=== PATIENT | female | born 1945 | race Caucasian/White ===

== ENCOUNTER → 2018-02-03 | Outpatient (CLI) | payer MEDICARE, BC ==
[2018-02-03 14:41] LABS: HCT 39.8 % (34.0-46.0); HGB 13.6 gm/dL (11.4-16.0); MCH 32.1 pg (25.0-35.0); MCHC 34.1 g/dL (31.0-37.0); MCV 94.2 fL (80.0-100.0); Mean Platelet Volume 6.7; Platelet Count 183 k/uL (150-450); RBC 4.23 m/uL (3.80-5.40); RDW 13.8 % (11.5-15.5); WBC 6.9 k/uL (3.8-10.6)
[2018-02-03 15:06] LABS: Anion Gap 12 mmol/L; Blood Urea Nitrogen 19 mg/dL (7-17); Calcium 9.5 mg/dL (8.4-10.2); Carbon Dioxide 25 mmol/L (22-30); Chloride 101 mmol/L (98-107); Glucose 226 mg/dL (74-99); Sodium 138 mmol/L (137-145)
== END | disposition home or self-care (01) ==
LOC: LABWHC1 13:54
PROVIDERS: ATTEND Internal Medicine Interventional Cardiology
DX: E11.9 Type 2 diabetes mellitus without complications (principal); I25.10 Atherosclerotic heart disease of native coronary artery without angina pectoris
CPT/HCPCS: 36415; 80048; 85027

== ENCOUNTER 2018-02-04 05:56 | Inpatient (IN) | payer MEDICARE ==
[~2018-02-04 05:56] MED LIST: ALPRAZolam 0.25 MG TAB PO PRN; ALPRAZolam 0.5 MG TAB PO PRN; ASPIRIN 325 MG TAB PO STA; ATORVASTATIN 80 MG TAB PO STA; NITROGLYCERIN SL TABS 0.4 MG TAB SUBLINGUAL PRN; SODIUM CHLORIDE 0.9% 1,000 ML in EMPTY BAG 1 BAG IV ONE
[2018-02-04 06:53] LABS: Glucose,Whole Blood 268 mg/dL (75-99)
[2018-02-04] MEDS ORDERED: INSULIN ASPART 100 UNIT/ML 1 ML 10 ML VIAL SQ ONE ×2 (06:53→09:49)
[2018-02-04] MEDS ORDERED: diphenhydrAMINE 50 MG/ML 1 ML VIAL ONE (07:07)
[2018-02-04] MEDS ORDERED: LIDOCAINE 1% INJ 10MG/ML (20 ML MDV) ONE (07:07)
[2018-02-04] MEDS ORDERED: MIDAZOLAM 2 MG/2 ML VIAL ONE (07:07)
[2018-02-04] MEDS ORDERED: MIDAZOLAM 2 MG/2 ML VIAL IVP ONE ×2 (07:30→07:33)
[2018-02-04] MEDS ORDERED: diphenhydrAMINE 50 MG/ML 1 ML VIAL IVP ONE (07:30)
[2018-02-04] MEDS ORDERED: LIDOCAINE 1% INJ 10MG/ML (20 ML MDV) SQ ONE ×2 (07:31→07:35)
[2018-02-04] MEDS ORDERED: IV FLUID CONTINUATION 1,000 ML IV ONE (07:37)
[2018-02-04] MEDS ORDERED: HEPARIN SODIUM 1,000 UN/ML (10ML VL) ONE (07:47)
[2018-02-04] MEDS ORDERED: IOPAMIDOL-370 100ML BTL INJ ONE (07:54)
[2018-02-04] MEDS ORDERED: RX INFO: IV CONTRAST WAS GIVEN 1 EACH MISC MISCELLANE PRN (08:13)
[2018-02-04] MEDS ORDERED: HEPARIN SODIUM,PORCINE 5,000 UNIT/ML 1 ML VIAL IV STA ×2 (09:01→16:14)
[2018-02-04 09:11] LABS: Basophils % (A) 0 %; Eosinophils % (A) 0 %; HCT 34.3 % (34.0-46.0); HGB 11.7 gm/dL (11.4-16.0); Lymphocytes % (A) 25 %; MCH 31.8 pg (25.0-35.0); MCHC 34.1 g/dL (31.0-37.0); MCV 93.2 fL (80.0-100.0); Mean Platelet Volume 7.7; Monocytes # (A) 0.2 k/uL (0-1.0); Monocytes % (A) 5 %; Neutrophils # (A) 2.8 k/uL (1.3-7.7); Neutrophils % (A) 68 %; Platelet Count 161 k/uL (150-450); RBC 3.68 m/uL (3.80-5.40); RDW 13.5 % (11.5-15.5); WBC 4.2 k/uL (3.8-10.6)
[2018-02-04 09:23] LABS: INR 1.1 (<1.2); Partial Thromboplastin Time 23.5 sec (22.0-30.0); Prothrombin Time 10.6 sec (9.0-12.0)
--- NOTE | 2018-02-04 09:23 | CC ---
CARDIAC CATHETERIZATION REPORT DATE OF SERVICE: 02/04/2018 PROCEDURE: Left heart catheterization and coronary angiography. PERFORMED BY: Dr. Annie Leigh. Moderate conscious sedation time was 18 minutes. Patient was given a combination of Versed and Benadryl. Her oxygen saturation, hemodynamics and EKG were monitored closely. PROCEDURE NOTE: Under local anesthesia and strict aseptic precautions, a 6-Upper Sorbian introducer was placed in the right femoral artery. Using standard Ashleigh catheters, I performed coronary angiography and a pigtail catheter was used to check LV pressures. LV gram was not performed. The catheters were taken out and sheath was sutured and was advised urgent bypass surgery and I spoke to the patient's family and Dr. Alvarado. The patient has significant left main and triple-vessel disease. CARDIAC CATHETERIZATION FINDINGS: The left ventricle end-diastolic pressure was about 16 mmHg with a gradient of less than 10 mmHg across the aortic valve on pullback measurement. CORONARY ANGIOGRAPHY FINDINGS: RIGHT CORONARY ARTERY: Heavily calcified vessel, diffusely diseased throughout, has about 70% to 80% multiple areas of narrowing. It seems to be a codominant or nondominant vessel with a small PLV and slightly larger PDA both of which have diffuse disease. LEFT MAIN CORONARY ARTERY: This is a heavily calcified vessel has about 80% lesion in the distal left main and bifurcates into LAD and circumflex. The left main, LAD and circumflex are all heavily calcified. LEFT ANTERIOR DESCENDING CORONARY ARTERY: This vessel is moderately calcified, has about a 70% proximal lesion, 95% mid lesion, of good caliber, graftable. The distal segment where the graft will be attached is not calcified gives off several septal branches. LAD therefore has a 70% proximal and a 95% mid lesion independently. LEFT POSTERIOR CIRCUMFLEX CORONARY ARTERY: Technically a dominant vessel, has about a 80% proximal lesion and the obtuse marginal has a 90% lesion and distal branches of circumflex are diffusely disease. Obtuse marginal vessel is graftable. The groove branch gives off distal branches which are small in caliber. The circumflex system is heavily calcified, but the obtuse marginal which is graftable, does not have much calcium in it. LEFT VENTRICULOGRAM: This was not performed. FINAL IMPRESSION: This patient has a 70% to 80% left main lesion, independent lesions of more than 80% in the circumflex, obtuse marginal as well as mid and proximal left anterior descending artery. Right coronary artery is probably nondominant diffusely diseased. The left ventricular pressures are elevated. There is a gradient of less than 10 mmHg across the aortic valve. Left ventriculogram was not performed. RECOMMENDATION: I am recommending urgent aortocoronary bypass surgery and discussed my thoughts in detail with the patient's family and Dr. Alvarado. The patient will be seen by Dr. Alvarado shortly. MMAIDEE / ALLIEN: [id number] /
--- NOTE | 2018-02-04 09:23 | LTR ---
February 04, [address] Doe: Thank you for the opportunity to participate in the care of Mrs. Pricila Acuña. Please find enclosed my detailed cardiac cath report for your records. I am recommending urgent aortocoronary bypass surgery with graft to the LAD, possibly the diagonal and obtuse marginal branch of circumflex. The patient has preserved LV function by echocardiogram. Thank you for your referral and please call for questions. With kindest regards. Sincerely yours, Annie Leigh MD [id number] / ALLIEN: [id number] /
[2018-02-04 09:28] LABS: Cholesterol 133 mg/dL (<200); Glucose 222 mg/dL (74-99); Triglycerides 213 mg/dL (<150)
[2018-02-04 09:29] LABS: ALT 37 U/L (9-52); AST 23 U/L (14-36); Alkaline Phosphatase 52 U/L (38-126); Anion Gap 8 mmol/L; Blood Urea Nitrogen 18 mg/dL (7-17); Calcium 8.9 mg/dL (8.4-10.2); Carbon Dioxide 28 mmol/L (22-30); Chloride 105 mmol/L (98-107); HDL Cholesterol 37 mg/dL (40-60); LDL Cholesterol,Calculated 53 mg/dL (0-99); Magnesium 1.3 mg/dL (1.6-2.3); Potassium 4.8 mmol/L (3.5-5.1); Sodium 141 mmol/L (137-145); Total Bilirubin 0.9 mg/dL (0.2-1.3)
[2018-02-04] MEDS: SODIUM CHLORIDE 0.9% 1,000 ML IV SCH (09:48)
[2018-02-04 09:59] LABS: Glucose,Whole Blood 232 mg/dL (75-99)
[2018-02-04] MEDS: HEPARIN SOD,PORK IN 0.45% NACL 25,000 UNIT in 0.45% NACL 1 500ML.BAG IV SCH (10:10)
[2018-02-04] MEDS ORDERED: FLUoxetine HCL 20 MG CAP PO SCH (13:08)
[2018-02-04] MEDS ORDERED: GLIMEPIRIDE 4 MG TAB PO SCH (13:08)
[2018-02-04] MEDS ORDERED: amLODIPine 5 MG TAB PO SCH (13:08)
[2018-02-04 13:14] LABS: Glucose,Whole Blood 242 mg/dL (75-99)
--- NOTE | 2018-02-04 14:06 | P.GSCN ---
<Brie Vera - Last Filed: 02/04/18 13:53> History of Present Illness Consult date: 02/04/18 Reason for Consult: Triple-vessel coronary artery disease with left main disease, surgical recommendations. Requesting physician: Jay Leigh History of present illness: This is a 72-year-old female patient who follows with Dr. Pranav Doe on an outpatient basis. She has a previous medical history of hypertension, diabetes mellitus, hyperlipidemia, pulmonary hypertension, depression, previous tobacco dependence, back surgery, and breast cancer with lumpectomy and radiation in 2005. She had been seen by Dr. DAYA Leigh in the past, was lost to follow-up for a period of time, and began seeing him again recently. Since November she had been having intermittent periods of midsternal chest pain with radiation to her bilateral shoulders as well as a feeling like there is fluid in her lungs with occasional wheezing. These episodes she notices mostly with exertion but occasionally at rest, the last episode was yesterday when she was having her stress test done. She denies any recent sick contacts, syncope, PND, orthopnea , nausea, or peripheral arterial disease type symptoms. At the cardiology office yesterday she had a stress test with EKG changes consistent with moderate to large anteroapical and inferolateral reversible defect, she did have angina during the stress test which was relieved with nitroglycerin. In addition she had a transthoracic echocardiogram demonstrating preserved ejection fraction of 55%, concentric left ventricular hypertrophy and left atrial enlargement, mild to moderate aortic stenosis with peak/mean gradients 27 /14 mmHg, no wall motion abnormalities, grade 3 diastolic dysfunction, mild mitral regurgitation, mild tricuspid regurgitation, and mild pulmonary regurgitation. She was recommended to undergo heart catheterization which was completed this morning and which demonstrated 80% left main disease, diffuse 70 % RCA disease, 75% circumflex disease , 70% proximal LAD disease with mid LAD disease up to 95%. She currently denies any chest pain. Dr. Alvarado from cardiothoracic surgery was consulted regarding surgical revascularization recommendations. Review of Systems Review of systems completed and was negative except as noted. - Cardiovascular Reports as per HPI, Reports chest pain - Respiratory Reports wheezing Past Medical History Past Medical History: Cancer, Diabetes Mellitus, Hyperlipidemia, Hypertension Additional Past Medical History / Comment(s): Hx breast cancer in 2005 with lumpectomy and radiation. History of Any Multi-Drug Resistant Organisms: None Reported Past Surgical History: Breast Surgery, Hernia Repair, Orthopedic Surgery, Tubal Ligation Additional Past Surgical History / Comment(s): Surgery to repair broken arm. Past Anesthesia/Blood Transfusion Reactions: No Reported Reaction Past Psychological History: Depression Smoking Status: Former smoker Past Alcohol Use History: Occasional Additional Past Alcohol Use History / Comment(s): Quit smoking at 21 yrs of age. Past Drug Use History: None Reported - Past Family History Sister(s) Family Medical History: Cancer, Pulmonary Embolus Additional Family Medical History / Comment(s): Lung cancer Medications and Allergies Home Medications Medication Instructions Recorded Confirmed Type Aspirin [Adult Low Dose Aspirin EC] 81 mg PO DAILY 02/03/18 02/04/18 History Atenolol 25 mg PO BID 02/03/18 02/04/18 History Atorvastatin [Lipitor] 80 mg PO DAILY 02/03/18 02/04/18 History Cholecalciferol [Vitamin D3] 3,000 unit PO DAILY 02/03/18 02/04/18 History FLUoxetine HCL [PROzac] 40 mg PO DAILY 02/03/18 02/04/18 History Glimepiride [Amaryl] 4 mg PO DAILY 02/03/18 02/04/18 History amLODIPine BESYLATE [Norvasc] 5 mg PO DAILY 02/03/18 02/04/18 History metFORMIN HCL [Glucophage] 1,000 mg PO BID 02/03/18 02/04/18 History Lisinopril [Zestril] 10 mg PO DAILY 02/04/18 02/04/18 History Allergies Allergy/AdvReac Type Severity Reaction Status Date / Time sulfamethoxazole Allergy Rash/Hives Verified 02/04/18 14:24 [From Bactrim] trimethoprim [From Bactrim] Allergy Rash/Hives Verified 02/04/18 14:24 Surgical - Exam Vital Signs Temp Pulse Resp BP Pulse Ox 98.4 F 57 L 20 145/73 100 02/04/18 06:51 02/04/18 06:51 02/04/18 06:51 02/04/18 06:51 02/04/18 06:51 - General well developed, well nourished, no distress, no pain - Eyes PERRL, normal ocular movement - ENT no hearing loss, no congestion - Neck no masses, no bruits, trachea midline - Respiratory Lungs sounds clear bilaterally. Respirations even, nonlabored. Currently on room air with oxygen saturation 98%. - Cardiovascular S1, S2 present. Regular rate and rhythm, sinus rhythm on telemetry. Palpable peripheral pulses bilaterally. No edema present. No calf pain or tenderness noted. - Abdomen Abdomen: soft, non tender, bowel sounds - Genitourinary Deferred - Rectum Deferred - Integumentary Skin is warm and dry with evidence of good perfusion. Right femoral artery catheterization site soft, nontender. - Neurologic normal coordination, normal sensation - Psychiatric oriented to time, oriented to person, oriented to place, speech is normal, memory intact Results - Labs 02/04/18 08:51 02/04/18 08:51 Abnormal Lab Results - Last 24 Hours (Table) 02/04/18 02/04/18 02/04/18 Range/Units 06:37 08:51 08:51 RBC 3.68 L (3.80-5.40) m/uL BUN 18 H (7-17) mg/dL Glucose 222 H (74-99) mg/dL POC Glucose (mg/dL) 268 H (75-99) mg/dL Magnesium 1.3 L (1.6-2.3) mg/dL Total Protein 6.0 L (6.3-8.2) g/dL Triglycerides 213 H (<150) mg/dL HDL Cholesterol 37 L (40-60) mg/dL 02/04/18 02/04/18 Range/Units 09:44 13:13 RBC (3.80-5.40) m/uL BUN (7-17) mg/dL Glucose (74-99) mg/dL POC Glucose (mg/dL) 232 H 242 H (75-99) mg/dL Magnesium (1.6-2.3) mg/dL Total Protein (6.3-8.2) g/dL Triglycerides (<150) mg/dL HDL Cholesterol (40-60) mg/dL Diabetes panel 02/04/18 Range/Units 08:51 Sodium 141 (137-145) mmol/L Potassium 4.8 (3.5-5.1) mmol/L Chloride 105 (98-107) mmol/L Carbon Dioxide 28 (22-30) mmol/L BUN 18 H (7-17) mg/dL Creatinine 0.69 (0.52-1.04) mg/dL Glucose 222 H (74-99) mg/dL Calcium 8.9 (8.4-10.2) mg/dL AST 23 (14-36) U/L ALT 37 (9-52) U/L Alkaline Phosphatase 52 (38-126) U/L Total Protein 6.0 L (6.3-8.2) g/dL Albumin 4.0 (3.5-5.0) g/dL Triglycerides 213 H (<150) mg/dL HDL Cholesterol 37 L (40-60) mg/dL Thyroid panel 02/04/18 Range/Units 08:51 TSH 1.980 (0.465-4.680) mIU/L Calcium panel 02/04/18 Range/Units 08:51 Calcium 8.9 (8.4-10.2) mg/dL Albumin 4.0 (3.5-5.0) g/dL Pituitary panel 02/04/18 Range/Units 08:51 Sodium 141 (137-145) mmol/L Potassium 4.8 (3.5-5.1) mmol/L Chloride 105 (98-107) mmol/L Carbon Dioxide 28 (22-30) mmol/L BUN 18 H (7-17) mg/dL Creatinine 0.69 (0.52-1.04) mg/dL Glucose 222 H (74-99) mg/dL Calcium 8.9 (8.4-10.2) mg/dL TSH 1.980 (0.465-4.680) mIU/L Adrenal panel 02/04/18 Range/Units 08:51 Sodium 141 (137-145) mmol/L Potassium 4.8 (3.5-5.1) mmol/L Chloride 105 (98-107) mmol/L Carbon Dioxide 28 (22-30) mmol/L BUN 18 H (7-17) mg/dL Creatinine 0.69 (0.52-1.04) mg/dL Glucose 222 H (74-99) mg/dL Calcium 8.9 (8.4-10.2) mg/dL Total Bilirubin 0.9 (0.2-1.3) mg/dL AST 23 (14-36) U/L ALT 37 (9-52) U/L Alkaline Phosphatase 52 (38-126) U/L Total Protein 6.0 L (6.3-8.2) g/dL Albumin 4.0 (3.5-5.0) g/dL - Imaging Additional studies: Heart catheterization films were reviewed. Assessment and Plan (1) Coronary artery disease involving left main coronary artery Current Visit: Yes Status: Chronic Code(s): I25.10 - ATHSCL HEART DISEASE OF [place] CORONARY ARTERY W/O ANG PCTRS SNOMED Code(s): 228037189 (2) Hypertension Current Visit: Yes Status: Chronic Code(s): I10 - ESSENTIAL (PRIMARY) HYPERTENSION SNOMED Code(s): 13445224 (3) Hyperlipidemia Current Visit: Yes Status: Chronic Code(s): E78.5 - HYPERLIPIDEMIA, UNSPECIFIED SNOMED Code(s): 96189844 (4) Diabetes mellitus Current Visit: Yes Status: Chronic Code(s): E11.9 - TYPE 2 DIABETES MELLITUS WITHOUT COMPLICATIONS SNOMED Code(s): 89338194 (5) Pulmonary hypertension Current Visit: Yes Status: Chronic Code(s): I27.20 - PULMONARY HYPERTENSION , UNSPECIFIED SNOMED Code(s): 41933599 (6) Chronic diastolic heart failure Current Visit: Yes Status: Chronic Code(s): I50.32 - CHRONIC DIASTOLIC ( CONGESTIVE) HEART FAILURE SNOMED Code(s): 248824682 (7) Depression Current Visit: Yes Status: Chronic Code(s): F32.9 - MAJOR DEPRESSIVE DISORDER, SINGLE EPISODE, UNSPECIFIED SNOMED Code(s): 02377877 (8) History of breast cancer Current Visit: No Status: Resolved Code(s): Z85.3 - PERSONAL HISTORY OF MALIGNANT NEOPLASM OF BREAST SNOMED Code(s): 432129624 (9) History of lumpectomy of right breast Current Visit: No Status: Resolved Code(s): Z98.890 - OTHER SPECIFIED POSTPROCEDURAL STATES SNOMED Code(s): 359645139 (10) History of radiation therapy Current Visit: No Status: Resolved Code(s): Z92.3 - PERSONAL HISTORY OF IRRADIATION SNOMED Code(s): 919643304 (11) Tobacco dependence in remission Current Visit: No Status: Resolved Code(s): F17.201 - NICOTINE DEPENDENCE, UNSPECIFIED, IN REMISSION SNOMED Code(s): 914131099 Plan: The patient was seen and examined in the extended stay unit with Dr. Alvarado. Chart service diagnostics were reviewed. Heart catheterization films were reviewed. Preoperative teaching was initiated. Preoperative testing was initiated. Patient is currently chest pain free and in no distress. IV heparin was initiated per cardiology and the patient was admitted to the intensive care unit for close monitoring. Our recommendation is for coronary artery bypass grafting surgery this admission pending the results of preoperative testing, likely . All risks and benefits were explained to the patient and family in detail and they did consent to surgery. Continue aspirin, statin, beta stiven. Hold SARMAD inhibitor and calcium channel blockers to avoid hypotension during surgery. We'll continue to follow and make more definite recommendations for timing of surgery once preoperative testing is completed. Thank you Dr. Leigh for this consult. We look forward to working with you in the care of your patient. Time with Patient: Greater than 30 <Morro Alvarado - Last Filed: 02/04/18 15:24> Surgical - Exam Vital Signs Temp Pulse Resp BP Pulse Ox 98.4 F 57 L 20 145/73 100 02/04/18 06:51 02/04/18 06:51 02/04/18 06:51 02/04/18 06:51 02/04/18 06:51 Results - Labs 02/04/18 08:51 02/04/18 08:51 Abnormal Lab Results - Last 24 Hours (Table) 02/04/18 02/04/18 02/04/18 Range/Units 06:37 08:51 08:51 RBC 3.68 L (3.80-5.40) m/uL APTT (22.0-30.0) sec BUN 18 H (7-17) mg/dL Glucose 222 H (74-99) mg/dL POC Glucose (mg/dL) 268 H (75-99) mg/dL Magnesium 1.3 L (1.6-2.3) mg/dL Total Protein 6.0 L (6.3-8.2) g/dL Triglycerides 213 H (<150) mg/dL HDL Cholesterol 37 L (40-60) mg/dL 02/04/18 02/04/18 02/04/18 Range/Units 09:44 13:13 13:58 RBC (3.80-5.40) m/uL APTT 30.1 H (22.0-30.0) sec BUN (7-17) mg/dL Glucose (74-99) mg/dL POC Glucose (mg/dL) 232 H 242 H (75-99) mg/dL Magnesium (1.6-2.3) mg/dL Total Protein (6.3-8.2) g/dL Triglycerides (<150) mg/dL HDL Cholesterol (40-60) mg/dL Diabetes panel 02/04/18 Range/Units 08:51 Sodium 141 (137-145) mmol/L Potassium 4.8 (3.5-5.1) mmol/L Chloride 105 (98-107) mmol/L Carbon Dioxide 28 (22-30) mmol/L BUN 18 H (7-17) mg/dL Creatinine 0.69 (0.52-1.04) mg/dL Glucose 222 H (74-99) mg/dL Calcium 8.9 (8.4-10.2) mg/dL AST 23 (14-36) U/L ALT 37 (9-52) U/L Alkaline Phosphatase 52 (38-126) U/L Total Protein 6.0 L (6.3-8.2) g/dL Albumin 4.0 (3.5-5.0) g/dL Triglycerides 213 H (<150) mg/dL HDL Cholesterol 37 L (40-60) mg/dL Thyroid panel 02/04/18 Range/Units 08:51 TSH 1.980 (0.465-4.680) mIU/L Calcium panel 02/04/18 Range/Units 08:51 Calcium 8.9 (8.4-10.2) mg/dL Albumin 4.0 (3.5-5.0) g/dL Pituitary panel 02/04/18 Range/Units 08:51 Sodium 141 (137-145) mmol/L Potassium 4.8 (3.5-5.1) mmol/L Chloride 105 (98-107) mmol/L Carbon Dioxide 28 (22-30) mmol/L BUN 18 H (7-17) mg/dL Creatinine 0.69 (0.52-1.04) mg/dL Glucose 222 H (74-99) mg/dL Calcium 8.9 (8.4-10.2) mg/dL TSH 1.980 (0.465-4.680) mIU/L Adrenal panel 02/04/18 Range/Units 08:51 Sodium 141 (137-145) mmol/L Potassium 4.8 (3.5-5.1) mmol/L Chloride 105 (98-107) mmol/L Carbon Dioxide 28 (22-30) mmol/L BUN 18 H (7-17) mg/dL Creatinine 0.69 (0.52-1.04) mg/dL Glucose 222 H (74-99) mg/dL Calcium 8.9 (8.4-10.2) mg/dL Total Bilirubin 0.9 (0.2-1.3) mg/dL AST 23 (14-36) U/L ALT 37 (9-52) U/L Alkaline Phosphatase 52 (38-126) U/L Total Protein 6.0 L (6.3-8.2) g/dL Albumin 4.0 (3.5-5.0) g/dL Assessment and Plan Plan: The patient was seen and examined. I agree with the assessment and plan. The patient is a 72-year-old male who reports exertional angina on an intermittent basis for the past 2 months. She had a stress test performed yesterday which was found to be abnormal. She underwent cardiac catheterization today which revealed multivessel coronary artery disease. She was subsequently started on intravenous heparin and admitted to the ICU. At the time of my examination, the patient was resting comfortably in bed and denied chest pain. She continues to be hemodynamically stable. A coronary artery bypass was recommended. The risks, benefits, and alternatives to this procedure were discussed with the patient. All of her questions were answered. We will obtain the standard preoperative workup with plans for surgical intervention within the next 48 hours assuming she remains symptom free and hemodynamically stable.
[2018-02-04] MEDS: ATENOLOL 25 MG TAB PO SCH ×2 (14:39→22:43)
[2018-02-04] MEDS: CHOLECALCIFEROL 1,000 UNIT TAB PO SCH (14:39)
[2018-02-04] MEDS: MAGNESIUM SULFATE-D5W PMX 1 GM in DEXTROSE/WATER 1 100ML.BAG IVPB SCH ×2 (15:08→16:59)
[2018-02-04] MEDS: ATORVASTATIN 80 MG TAB PO SCH (15:09)
[2018-02-04] MEDS: ASPIRIN 81 MG PO SCH (15:09)
--- NOTE | 2018-02-04 16:57 | P.CONS ---
History of Present Illness - Reason for Consult Consult date: 02/04/18 diabetes management Requesting physician: Morro Alvarado - Chief Complaint chest pain - History of Present Illness Patient is a 72-year-old female with a complex medical history including diabetes mellitus type 2 with neuropathy managed on oral medications, hypertension, dyslipidemia, GERD, pulmonary hypertension, diastolic dysfunction , and depression who presented for an elective outpatient cardiac catheterization. Initially she had seen Dr. Leigh in the office and had a stress test performed. During her stress test she was noted to have EKG changes consistent with anterior apical and inferior lateral reversible defect. She developed her chest pain symptoms and received a nitroglycerin. She subsequently underwent cardiac catheterization on the morning of 02/04 which showed disease in the left main, RCA, circumflex, and LAD. She was subsequently placed on a heparin drip and admitted to the ICU. Dr. Alvarado from cardiothoracic surgery was consulted for regarding revascularization recommendations. Preoperative testing has been started on tentative plan is for revascularization in the next 48 hours if she remains symptom free and hemodynamically stable. We are asked to see her for medical management. Patient seen and examined at bedside in the ICU. She has been having intermittent chest pain since November. Initially was infrequent but became more frequent as time progressed. It first started after eating but then occurred with exertion as well. She states they last 5-10 minutes. It is associated with pain in both arms. She denied any associated shortness of breath, numbness or tingling, or faint feeling. She does report ringing in her ears. One time she had wheezing after the chest pain. She reports that she has had diabetes for approximately 10 years. Her last hemoglobin A1c was greater than 7 and she has been doing an intensive diabetes education program. She does not routinely check her blood sugar at home. She takes metformin and glimepiride daily. Recently in the doctor told her to take glimepiride 2 tablets as needed. She has not been doing this. She denies any recent cough, cold, fever, flu, nausea, vomiting, diarrhea, constipation, and dysuria. Past Medical History Past Medical History: Cancer, Diabetes Mellitus, GERD/Reflux, Hyperlipidemia, Hypertension Additional Past Medical History / Comment(s): Hx breast cancer in 2005 with lumpectomy and radiation. Depression, pulmonary hypertension, diastolic dysfunction. History of Any Multi-Drug Resistant Organisms: None Reported Past Surgical History: Breast Surgery, Hernia Repair, Orthopedic Surgery, Tubal Ligation Additional Past Surgical History / Comment(s): Fracture repair right arm, back surgery to repair her sciatica in 1996, lumpectomy Past Anesthesia/Blood Transfusion Reactions: No Reported Reaction Past Psychological History: Depression Smoking Status: Former smoker Past Alcohol Use History: Occasional Additional Past Alcohol Use History / Comment(s): Quit smoking at 21 yrs of age. Past Drug Use History: None Reported Additional History: Lives alone, no assistive devices - Past Family History Sister(s) Family Medical History: Cancer, Pulmonary Embolus Additional Family Medical History / Comment(s): Lung cancer Medications and Allergies Home Medications Medication Instructions Recorded Confirmed Type Aspirin [Adult Low Dose Aspirin EC] 81 mg PO DAILY 02/03/18 02/04/18 History Atenolol 25 mg PO BID 02/03/18 02/04/18 History Atorvastatin [Lipitor] 80 mg PO DAILY 02/03/18 02/04/18 History Cholecalciferol [Vitamin D3] 3,000 unit PO DAILY 02/03/18 02/04/18 History FLUoxetine HCL [PROzac] 40 mg PO DAILY 02/03/18 02/04/18 History Glimepiride [Amaryl] 4 mg PO DAILY 02/03/18 02/04/18 History amLODIPine BESYLATE [Norvasc] 5 mg PO DAILY 02/03/18 02/04/18 History metFORMIN HCL [Glucophage] 1,000 mg PO BID 02/03/18 02/04/18 History Lisinopril [Zestril] 10 mg PO DAILY 02/04/18 02/04/18 History Allergies Allergy/AdvReac Type Severity Reaction Status Date / Time sulfamethoxazole Allergy Rash/Hives Verified 02/04/18 14:24 [From Bactrim] trimethoprim [From Bactrim] Allergy Rash/Hives Verified 02/04/18 14:24 Physical Exam Osteopathic Statement: *. No significant issues noted on an osteopathic structural exam other than those noted in the History and Physical/Consult. Vitals: Vital Signs Temp Pulse Pulse Resp BP BP BP 02/04/18 16:00 98.4 F 66 20 118/67 02/04/18 15:45 67 23 140/77 02/04/18 15:30 76 19 140/77 07/31/18 15:15 74 17 122/68 07/31/18 15:00 79 14 122/68 02/04/18 14:45 81 17 131/71 02/04/18 14:30 77 42 H 131/71 02/04/18 14:15 76 19 127/66 02/04/18 14:00 82 15 127/66 02/04/18 13:45 80 9 L 134/66 02/04/18 13:30 98.5 F 81 18 134/66 02/04/18 12:30 20 110/60 02/04/18 10:30 20 114/61 02/04/18 10:00 20 02/04/18 09:45 18 02/04/18 09:30 20 02/04/18 09:00 20 108/59 02/04/18 08:45 20 130/71 02/04/18 08:32 20 114/65 02/04/18 08:15 18 131/61 02/04/18 08:00 20 131/61 02/04/18 07:42 02/04/18 06:51 98.4 F 57 L 20 142/74 145/73 BP Pulse Ox 02/04/18 16:00 92 L 02/04/18 15:45 94 L 02/04/18 15:30 92 L 02/04/18 15:15 94 L 02/04/18 15:00 93 L 02/04/18 14:45 95 02/04/18 14:30 94 L 02/04/18 14:15 94 L 02/04/18 14:00 94 L 02/04/18 13:45 95 02/04/18 13:30 94 L 02/04/18 12:30 98 02/04/18 10:30 98 02/04/18 10:00 98 02/04/18 09:45 97 02/04/18 09:30 114/68 96 02/04/18 09:00 138/68 96 02/04/18 08:45 150/58 95 02/04/18 08:32 152/60 95 02/04/18 08:15 146/60 95 02/04/18 08:00 152/62 93 L 02/04/18 07:42 39 L 02/04/18 06:51 100 Intake and Output 02/04/18 02/04/18 02/04/18 06:59 14:59 22:59 Intake Total 450 249.28 Output Total 0 Balance 450 249.28 Intake: IV 350 150 Sodium Chloride 0.9% 1, 150 150 000 ml @ 75 mls/hr IV . [id number] TORIBIO Rx#:[id number] Intake, IV Titration 99.28 Amount Heparin Sod,Pork in 0.45% 99.28 NaCl 25,000 unit In 0.45 % NaCl 1 500ml.bag @ 12 UNITS/KG/HR 16.32 mls/hr IV .Q24H TORIBIO Rx#: [id number] Oral 100 Output: Urine 0 Other: # Voids 0 0 General: non toxic, no distress, appears at stated age, normal weight Derm: no unusual rashes/lesions no unusual ecchymoses, warm, dry Head: atraumatic, normocephalic, symmetric Eyes: EOMI, no lid lag, anicteric sclera, pupils equal round reactive to light ENT: Nose and ears atraumatic, no thrush, no pharyngeal erythema Neck: No thyromegaly, no cervical lymphadenopathy, trachea midline, supple Mouth: no lip lesion, mucus membranes moist Cardiovascular: S1S2 reg with murmur, positive posterior tibial pulse bilateral , no edema, capillary refill less than 2 seconds Lungs: CTA bilateral, no rhonchi, no rales , no accessory muscle use Abdominal: soft, nontender to palpation, no guarding, no appreciable organomegaly, normal bowel sounds Ext: no gross muscle atrophy, muscle strength 5 out of 5 in bilateral upper extremities, no contractures, Neuro: CN II-XI grossly intact, light touch intact all 4 extremities, finger to nose within normal limits, Psych: Alert, oriented, appropriate affect Results CBC & Chem 7: 02/04/18 08:51 02/04/18 08:51 Labs: Abnormal Lab Results - Last 24 Hours (Table) 02/04/18 02/04/18 02/04/18 Range/Units 06:37 08:51 08:51 RBC 3.68 L (3.80-5.40) m/uL APTT (22.0-30.0) sec BUN 18 H (7-17) mg/dL Glucose 222 H (74-99) mg/dL POC Glucose (mg/dL) 268 H (75-99) mg/dL Magnesium 1.3 L (1.6-2.3) mg/dL Total Protein 6.0 L (6.3-8.2) g/dL Triglycerides 213 H (<150) mg/dL HDL Cholesterol 37 L (40-60) mg/dL Crossmatch 02/04/18 02/04/18 02/04/18 Range/Units 08:51 09:44 13:13 RBC (3.80-5.40) m/uL APTT (22.0-30.0) sec BUN (7-17) mg/dL Glucose (74-99) mg/dL POC Glucose (mg/dL) 232 H 242 H (75-99) mg/dL Magnesium (1.6-2.3) mg/dL Total Protein (6.3-8.2) g/dL Triglycerides (<150) mg/dL HDL Cholesterol (40-60) mg/dL Crossmatch See Detail 02/04/18 Range/Units 13:58 RBC (3.80-5.40) m/uL APTT 30.1 H (22.0-30.0) sec BUN (7-17) mg/dL Glucose (74-99) mg/dL POC Glucose (mg/dL) (75-99) mg/dL Magnesium (1.6-2.3) mg/dL Total Protein (6.3-8.2) g/dL Triglycerides (<150) mg/dL HDL Cholesterol (40-60) mg/dL Crossmatch Assessment and Plan Assessment: Diabetes mellitus Type II - stop metformin and Amaryl - SSI - Check A1C 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 - heparin gtt, ASA, atenolol, lipitor HTN - atenolol, follow BP -lisinopril and norvasc on hold preoperatively HLD - statin GERD -protonix Depression - Med rec clarified, on effexor not prozac Thank you for allowing us to participate in the care of this patient. Do not hesitate to contact us with questions. Someone can be reached from the [facility] hospitalist group at all hours of the day at [phone]. From 7 am to 7 PM The [facility] team phone is [phone].
--- NOTE | 2018-02-04 17:04 | XR ---
EXAMINATION TYPE: XR chest 1V portable DATE OF EXAM: 02/04/2018 COMPARISON: NONE HISTORY: Preoperative evaluation for cardiac surgery. TECHNIQUE: Single frontal view of the chest is obtained. FINDINGS: There is no focal air space opacity, pleural effusion, or pneumothorax seen. The cardiac silhouette size is upper limits of normal size. The osseous structures are intact. Osseous deminera lization is noted. IMPRESSION: No acute cardiopulmonary process.
--- NOTE | 2018-02-04 17:04 | P.CNPUL ---
History of Present Illness Consult date: 02/04/18 Requesting physician: Morro Alvarado Reason for consult: chest pain Chief complaint: Coronary artery disease, chest pain, preop CABG pulmonary evaluation History of present illness: Mrs. Acuña is a 72-year-old white female patient of Dr. Pranav Doe, who was brought in for cardiac catheterization today on 02/04/2018, following up positive stress test at [facility]. Patient has been having substernal chest pain, with bilateral arm heaviness, and ringing in her ears on and off since November. She states her symptoms would be brought after eating, and physical exertion like walking. Relieved with rest, and deep breathing. Lately her symptoms were also accompanied by sweating. Her PCP referred her to cardiology, she underwent exercise stress test on 02/03/2018, and she had chest pain, diaphoresis, significant infero-apical ST segment depression, and she was scheduled for cardiac catheterization today, which showed 70-80% left main lesion, 80% lesion in the circumflex, obtuse marginal that was mid and proximal LAD. The RCA was diffusely diseased, but was nondominant. There was a less than 10 mm gradient across the aortic valve. Lab work showed WBC of 4.2, hemoglobin of 11.7, electrolytes and renal profile were essentially normal, magnesium was 1.3, LFTs were normal. Past medical history is positive for hypertension, diabetes mellitus type 2, hyperlipidemia, depression, remote and brief smoking history, back surgery, breast cancer in 2005, status post lumpectomy and radiation. Most recent mammogram from December 2017 was normal. Echocardiogram showed mild to moderate aortic stenosis with mean gradient of 15 mmHg, mild pulmonary hypertension, concentric LVH and left atrial enlargement, ejection fraction of 55%. Patient was referred to cardiothoracic surgery and she was recommended surgical revascularization to which she agreed. Her surgery is scheduled for 02/06/[address] Alvarado. Review of Systems All systems: negative Constitutional: Denies chills, Denies fever Eyes: denies blurred vision, denies pain Ears, nose, mouth and throat: Denies headache, Denies sore throat Breasts: right: as per HPI Breasts: Reports as per HPI Cardiovascular: Reports chest pain, Denies shortness of breath Respiratory: Reports dyspnea, Reports wheezing, Denies cough Gastrointestinal: Reports indigestion, Denies abdominal pain, Denies diarrhea, Denies nausea, Denies vomiting Genitourinary: Denies dysuria, Denies hematuria Musculoskeletal: Denies myalgias Integumentary: Denies pruritus, Denies rash Neurological: Denies numbness, Denies weakness Psychiatric: Denies anxiety, Denies depression Endocrine: Denies fatigue, Denies weight change Past Medical History Past Medical History: Cancer, Diabetes Mellitus, Hyperlipidemia, Hypertension Additional Past Medical History / Comment(s): Hx breast cancer in 2006 with lumpectomy and radiation. History of Any Multi-Drug Resistant Organisms: None Reported Past Surgical History: Breast Surgery, Hernia Repair, Orthopedic Surgery, Tubal Ligation Additional Past Surgical History / Comment(s): Surgery to repair broken arm. Past Anesthesia/Blood Transfusion Reactions: No Reported Reaction Past Psychological History: Depression Smoking Status: Former smoker Past Alcohol Use History: Occasional Additional Past Alcohol Use History / Comment(s): Quit smoking at 21 yrs of age. Past Drug Use History: None Reported - Past Family History Sister(s) Family Medical History: Cancer, Pulmonary Embolus Additional Family Medical History / Comment(s): Lung cancer Medications and Allergies Home Medications Medication Instructions Recorded Confirmed Type Aspirin [Adult Low Dose Aspirin EC] 81 mg PO DAILY 02/03/18 02/04/18 History Atenolol 25 mg PO BID 02/03/18 02/04/18 History Atorvastatin [Lipitor] 80 mg PO DAILY 02/03/18 02/04/18 History Cholecalciferol [Vitamin D3] 3,000 unit PO DAILY 02/03/18 02/04/18 History FLUoxetine HCL [PROzac] 40 mg PO DAILY 02/03/18 02/04/18 History Glimepiride [Amaryl] 4 mg PO DAILY 02/03/18 02/04/18 History amLODIPine BESYLATE [Norvasc] 5 mg PO DAILY 02/03/18 02/04/18 History metFORMIN HCL [Glucophage] 1,000 mg PO BID 02/03/18 02/04/18 History Lisinopril [Zestril] 10 mg PO DAILY 02/04/18 02/04/18 History Allergies Allergy/AdvReac Type Severity Reaction Status Date / Time sulfamethoxazole Allergy Rash/Hives Verified 02/04/18 14:24 [From Bactrim] trimethoprim [From Bactrim] Allergy Rash/Hives Verified 02/04/18 14:24 Physical Exam Vitals: Vital Signs Temp Pulse Pulse Resp BP BP BP 02/04/18 16:00 98.4 F 66 20 118/67 02/04/18 15:45 67 23 140/77 02/04/18 15:30 76 19 140/77 02/04/18 15:15 74 17 122/68 02/04/18 15:00 79 14 122/68 02/04/18 14:45 81 17 131/71 02/04/18 14:30 77 42 H 131/71 02/04/18 14:15 76 19 127/66 02/04/18 14:00 82 15 127/66 02/04/18 13:45 80 9 L 134/66 02/04/18 13:30 98.5 F 81 18 134/66 02/04/18 12:30 20 110/60 02/04/18 10:30 20 114/61 02/04/18 10:00 20 02/04/18 09:45 18 02/04/18 09:30 20 02/04/18 09:00 20 108/59 02/04/18 08:45 20 130/71 02/04/18 08:32 20 114/65 02/04/18 08:15 18 131/61 02/04/18 08:00 20 131/61 02/04/18 07:42 02/04/18 06:51 98.4 F 57 L 20 142/74 145/73 BP Pulse Ox 02/04/18 16:00 92 L 02/04/18 15:45 94 L 02/04/18 15:30 92 L 02/04/18 15:15 94 L 02/04/18 15:00 93 L 02/04/18 14:45 95 02/04/18 14:30 94 L 02/04/18 14:15 94 L 02/04/18 14:00 94 L 02/04/18 13:45 95 02/04/18 13:30 94 L 02/04/18 12:30 98 02/04/18 10:30 98 02/04/18 10:00 98 02/04/18 09:45 97 02/04/18 09:30 114/68 96 02/04/18 09:00 138/68 96 02/04/18 08:45 150/58 95 02/04/18 08:32 152/60 95 02/04/18 08:15 146/60 95 02/04/18 08:00 152/62 93 L 02/04/18 07:42 39 L 02/04/18 06:51 100 Intake and Output 02/04/18 02/04/18 02/04/18 06:59 14:59 22:59 Intake Total 450 249.28 Output Total 0 Balance 450 249.28 Intake: IV 350 150 Sodium Chloride 0.9% 1, 150 150 000 ml @ 75 mls/hr IV . [id number] TORIBIO Rx#:[id number] Intake, IV Titration 99.28 Amount Heparin Sod,Pork in 0.45% 99.28 NaCl 25,000 unit In 0.45 % NaCl 1 500ml.bag @ 12 UNITS/KG/HR 16.32 mls/hr IV .Q24H TORIBIO Rx#: [id number] Oral 100 Output: Urine 0 Other: # Voids 0 0 GENERAL EXAM: Alert, pleasant, 72-year-old white female, comfortable in no apparent distress. HEAD: Normocephalic/atraumatic. EYES: Normal reaction of pupils, equal size. Conjunctiva pink, sclera white. NOSE: Clear with pink turbinates. THROAT: No erythema or exudates. NECK: No masses, no JVD, no thyroid enlargement, no adenopathy. CHEST: No chest wall deformity. Symmetrical expansion. LUNGS: Equal air entry with no crackles, wheeze, rhonchi or dullness. CVS: Regular rate and rhythm, normal S1 and S2, no gallops, no murmurs, no rubs ABDOMEN: Soft, nontender. No hepatosplenomegaly, normal bowel sounds, no guarding or rigidity. EXTREMITIES: No clubbing, no edema, no cyanosis, 2+ pulses and upper and left lower extremity. Right groin puncture is clean dry and intact, soft, there is a FemoStop on. Right pedal pulse is Doppler pulse MUSCULOSKELETAL: Muscle strength and tone normal. SPINE: No scoliosis or deformity SKIN: No rashes CENTRAL NERVOUS SYSTEM: Alert and oriented -3. No focal deficits, tone is normal in all 4 extremities. PSYCHIATRIC: Alert and oriented -3. Appropriate affect. Intact judgment and insight. Results - Laboratory Findings CBC and BMP: 02/04/18 08:51 02/04/18 08:51 PT/INR, D-dimer PT 10.6 sec (9.0-12.0) 02/04/18 08:51 INR 1.1 (<1.2) 02/04/18 08:51 Abnormal lab findings: Abnormal Labs 02/04/18 02/04/18 02/04/18 06:37 08:51 08:51 RBC 3.68 L APTT BUN 18 H Glucose 222 H POC Glucose (mg/dL) 268 H Magnesium 1.3 L Total Protein 6.0 L Triglycerides 213 H HDL Cholesterol 37 L Crossmatch 02/04/18 02/04/18 02/04/18 08:51 09:44 13:13 RBC APTT BUN Glucose POC Glucose (mg/dL) 232 H 242 H Magnesium Total Protein Triglycerides HDL Cholesterol Crossmatch See Detail 02/04/18 13:58 RBC APTT 30.1 H BUN Glucose POC Glucose (mg/dL) Magnesium Total Protein Triglycerides HDL Cholesterol Crossmatch Assessment and Plan Plan: Assessment: #1. Symptomatic coronary artery disease, with 80% left main stenosis, diffuse RCA disease at 70%, 75% circumflex lesion, 70% proximal LAD, and mid LAD up to 95%. Patient is scheduled for coronary artery bypass grafting on 02/06/[address] Alvarado #2. Diabetes mellitus type 2 #3. Hypertension #4. Hyperlipidemia #5. Depression #6. History of right breast cancer, status post lumpectomy and radiation, in 2005. Most recent mammogram was reportedly within normal limits. #7. Remote smoking history, quit smoking at age of 21, smoked a pack a day for 6 years #8. Pulmonary hypertension Plan: Preop PFT will be completed once the patient is off bedrest. We'll obtain a chest x-ray. CT chest, vein mapping ultrasound and carotid Dopplers are pending. Patient's is currently without any acute distress, no dyspnea, room air pulse ox is 92%, vital signs are stable, patient denies any baseline shortness of breath. Continue monitoring for episodes of chest pain, vital signs, EKG changes. Surgery has been scheduled for , on . We 'll continue to closely follow I performed a history & physical examination of the patient and discussed their management with my nurse practitioner, Jaye Marina. I reviewed the nurse practitioner's note and agree with the documented findings and plan of care. Lung sounds are clear. The findings and the impression was discussed with the patient. I attest to the documentation by the nurse practitioner. Time with Patient: Greater than 30
[2018-02-04 17:29] LABS: Glucose,Whole Blood 169 mg/dL (75-99)
[2018-02-04 17:39] LABS: Hemoglobin A1C 7.9 % (4.0-6.0)
[2018-02-04] MEDS: INSULIN ASPART 100 UNIT/ML 1 ML 10 ML VIAL SQ SCH ×2 (17:59→21:32)
[2018-02-04 18:10] LABS: Hepatitis A Antibody IgM Non-Reactive (Non-Reactive); Hepatitis B Core IgM Non-Reactive (Non-Reactive)
--- NOTE | 2018-02-04 19:00 | CT ---
EXAMINATION TYPE: CT chest wo con DATE OF EXAM: 02/04/2018 COMPARISON: NONE HISTORY: Pre-operative for open heart surgery. CT DLP: 317.8 mGycm. Automated Exposure Control for Dose Reduction was Utilized. TECHNIQUE: CT scan of the thorax is performed without IV contrast. FINDINGS: LUNGS: There is a punctate 2 mm solid pulmonary nodule within the posterior lateral right upper lobe on series 4 image 17. There are 2 additional 2 mm pulmonary nodules within the right midlung are seen on series 4 image 30. No discrete pulmonary mass, focal consolidation, or pneumothorax. Minimal biba silar subsegmental atelectasis is seen. MEDIASTINUM: There is moderate atherosclerosis of the aortic arch and mild atherosclerosis of the gre at vessels. There is a conventional three-vessel branch pattern of the aortic arch. There is severe t hree-vessel coronary artery calcifications. Minimal atherosclerosis of the aortic root and ascending thoracic aorta. Ascending thoracic aorta is within normal limits of size measuring 3.5 cm. Lack of IV contrast is noted to limit evaluation for mediastinal and especially hilar adenopathy. There are no definitive greater than 1 cm hilar or mediastinal lymph nodes. No cardiomegaly or pericardial effus ion is seen. OTHER: Vascular calcifications are seen near the ayden hepatis and within the splenic hilum as well a s extensive atherosclerosis of the abdominal aorta and its branches. Renal arterial calcifications ar e also seen. No hydronephrosis of the visualized kidneys. Dystrophic right breast calcifications are also present. There is heterogeneity of thyroid gland with posterior right lobe ill-defined 8 mm nodu le. This could be further assessed with thyroid ultrasound if clinically indicated. Moderate degenera tive changes of the visualized thoracolumbar spine are noted. IMPRESSION: 1. Extensive three-vessel coronary artery calcifications, marker for coronary artery disease. 2. No evidence of thoracic aortic aneurysm. Moderate calcific atheromatous change of the thoracic aor ta and severe calcific atheromatous change of the visualized abdominal aorta and its branches. 3. Subcentimeter (2 mm) right-sided pulmonary nodules. Follow-up CT thorax is recommended in 12 month s to assess stability.
[2018-02-04 20:20] LABS: Glucose,Whole Blood 230 mg/dL (75-99)
[2018-02-04] MEDS ORDERED: LISINOPRIL 10 MG TAB PO SCH (21:00)
--- NOTE | 2018-02-04 21:59 | US ---
EXAMINATION TYPE: US carotid duplex BILAT DATE OF EXAM: 02/04/2018 COMPARISON: NONE CLINICAL HISTORY: preop cardiac surgery. pre op cardiac surgery EXAM MEASUREMENTS: RIGHT: Peak Systolic Velocity (PSV) cm/sec ----- Right CCA: 56.6 ----- Right ICA: 60.9 ----- Right ECA: 85.6 ICA/CCA ratio: 1.1 RIGHT: End Diastole cm/sec ----- Right CCA: 11.5 ----- Right ICA: 12.9 ----- Right ECA: 12.9 LEFT: Peak Systolic Velocity (PSV) cm/sec ----- Left CCA: 94.3 ----- Left ICA: 94.4 ----- Left ECA: 88.5 ICA/CCA ratio: 1.0 LEFT: End Diastole cm/sec ----- Left CCA: 23.1 ----- Left ICA: 29.4 ----- Left ECA: 0 VERTEBRALS (direction of flow): Right Vertebral: Antegrade Left Vertebral: Antegrade Rhythm: Normal Bilateral plaque seen. Bilateral ICA dives deep exam limitations due to torturous vessels. Incidenta l finding on right side. A solid nodule with vascularity seen adjacent to CCA measuring 1.4 x 1.5 x 1 .2 cm. IMPRESSION: 1. No hemodynamically significant stenosis within either visualized carotid arterial system. Mild to moderate grayscale atheromatous plaquing is seen. 2. Incidentally noted solid lesion adjacent to the right common carotid artery measuring up to 1.5 cm . This could represent a lymph node or other etiology within the carotid speech such as a paraganglio ma/carotid sheath tumor. Further evaluation with enhanced CT neck is recommended.
[2018-02-05 03:22] LABS: Appearance,Urine Clear (Clear); Bilirubin,Urine Negative (Negative); Blood,Urine Negative (Negative); Color,Urine Light Yellow; Glucose,Urine (UA) 4+ (Negative); Ketones,Urine Negative (Negative); Leukocyte Esterase,Urine Negative (Negative); Nitrite,Urine Negative (Negative); PH, Urine 5.5 (5.0-8.0); Protein,Urine Negative (Negative); Specific Gravity,Urine 1.016 (1.001-1.035); Urobilinogen,Urine <2.0 mg/dL (<2.0)
[2018-02-05 04:18] LABS: Basophils % (A) 0 %; Eosinophils % (A) 1 %; HCT 32.4 % (34.0-46.0); HGB 10.9 gm/dL (11.4-16.0); Lymphocytes # (A) 1.3 k/uL (1.0-4.8); Lymphocytes % (A) 31 %; MCH 31.3 pg (25.0-35.0); MCHC 33.7 g/dL (31.0-37.0); MCV 92.9 fL (80.0-100.0); Mean Platelet Volume 7.2; Monocytes # (A) 0.3 k/uL (0-1.0); Monocytes % (A) 8 %; Neutrophils # (A) 2.5 k/uL (1.3-7.7); Neutrophils % (A) 58 %; Platelet Count 132 k/uL (150-450); RBC 3.48 m/uL (3.80-5.40); RDW 13.4 % (11.5-15.5); WBC 4.3 k/uL (3.8-10.6)
[2018-02-05 04:47] LABS: Anion Gap 8 mmol/L; Blood Urea Nitrogen 17 mg/dL (7-17); Calcium 8.9 mg/dL (8.4-10.2); Carbon Dioxide 26 mmol/L (22-30); Chloride 108 mmol/L (98-107); Glucose 153 mg/dL (74-99); Magnesium 1.7 mg/dL (1.6-2.3); Phosphorus 4.1 mg/dL (2.5-4.5); Potassium 4.4 mmol/L (3.5-5.1); Sodium 142 mmol/L (137-145)
[2018-02-05] MEDS ORDERED: Magnesium Replacement Protocol 1 EACH MISC MISCELLANE PRN (04:58)
[2018-02-05] MEDS: SODIUM CHLORIDE 0.9% 1,000 ML IV SCH (05:10)
[2018-02-05] MEDS: MAGNESIUM SULFATE-D5W PMX 1 GM in DEXTROSE/WATER 1 100ML.BAG IVPB SCH ×2 (06:25→07:58)
[2018-02-05 07:41] LABS: Glucose,Whole Blood 253 mg/dL (75-99)
[2018-02-05] MEDS: INSULIN ASPART 100 UNIT/ML 1 ML 10 ML VIAL SQ SCH ×4 (07:48→21:29)
[2018-02-05] MEDS: PANTOPRAZOLE 40 MG TABLET PO SCH (07:49)
[2018-02-05] MEDS: ATORVASTATIN 80 MG TAB PO SCH (07:49)
[2018-02-05] MEDS: ATENOLOL 25 MG TAB PO SCH ×2 (07:49→20:41)
[2018-02-05] MEDS: CHOLECALCIFEROL 1,000 UNIT TAB PO SCH (07:50)
[2018-02-05] MEDS: ASPIRIN 81 MG PO SCH (07:50)
[2018-02-05] MEDS: VENLAFAXINE HCL ER 75 MG CAP PO SCH (07:50)
--- NOTE | 2018-02-05 09:25 | P.PN ---
Subjective Progress Note Date: 02/05/18 Principal diagnosis: chest pain Patient is a 72-year-old female with a complex medical history including diabetes mellitus type 2 with neuropathy managed on oral medications, hypertension, dyslipidemia, GERD, pulmonary hypertension, diastolic dysfunction , and depression who presented for an elective outpatient cardiac catheterization. Initially she had seen Dr. Leigh in the office and had a stress test performed. During her stress test she was noted to have EKG changes consistent with anterior apical and inferior lateral reversible defect. She developed her chest pain symptoms and received a nitroglycerin. She subsequently underwent cardiac catheterization on the morning of 02/04 which showed disease in the left main, RCA, circumflex, and LAD. She was subsequently placed on a heparin drip and admitted to the ICU. Dr. Alvarado from cardiothoracic surgery was consulted for regarding revascularization recommendations. Preoperative testing was started on 02/04/18 with tentative plan is for revascularization in the next 48 hours if she remains symptom free and hemodynamically stable. Patient seen and examined at bedside. No chest pain, SOB, nausea, or vomiting. Had a bowel movement yesterday. Slept well last night. Objective - Vital Signs Vital signs: Vital Signs Temp 98.4 F 02/05/18 04:00 Pulse 62 02/05/18 07:00 Resp 15 02/05/18 07:00 BP 97/51 02/05/18 07:00 Pulse Ox 98 02/05/18 07:00 Intake & Output 02/04/18 02/05/18 02/05/18 18:59 06:59 18:59 Intake Total 924.28 513.289 200 Output Total 0 500 500 Balance 924.28 13.289 -300 Weight 71.9 kg Intake: IV 725 250 200 Magnesium Sulfate-D5w Pmx 200 1 gm In Dextrose/Water 1 100ml.bag @ 100 mls/hr IVPB Q1H [facility] Rx#: [id number] Sodium Chloride 0.9% 1, 525 250 000 ml @ 75 mls/hr IV . [id number] [facility] Rx#:[id number] Intake, IV Titration 99.28 263.289 Amount Heparin Sod,Pork in 0.45% 99.28 263.289 NaCl 25,000 unit In 0.45 % NaCl 1 500ml.bag @ 12 UNITS/KG/HR 16.32 mls/hr IV .Q24H [facility] Rx#: [id number] Oral 100 Output: Urine 0 500 500 Other: # Voids 0 1 - Exam General: non toxic, no distress, appears at stated age Derm: warm, dry Head: atraumatic, normocephalic, symmetric Eyes: EOMI, no lid lag, anicteric sclera Mouth: no lip lesion, mucus membranes moist Cardiovascular: S1S2 reg with murmur, positive posterior tibial pulse bilateral , Lungs: CTA bilateral, no rhonchi, no rales , no accessory muscle use Abdominal: soft, nontender to palpation, no guarding, no appreciable organomegaly Ext: no gross muscle atrophy, no edema, no contractures Neuro: CN II-XI grossly intact, no focal neuro deficits Psych: Alert, oriented, appropriate affect - Labs CBC & Chem 7: 02/05/18 03:37 02/05/18 03:37 Labs: Abnormal Lab Results - Last 24 Hours (Table) 02/04/18 02/04/18 02/04/18 Range/Units 08:51 08:51 08:51 RBC (3.80-5.40) m/uL Hgb (11.4-16.0) gm/dL Hct (34.0-46.0) % Plt Count (150-450) k/uL APTT (22.0-30.0) sec Chloride (98-107) mmol/L BUN 18 H (7-17) mg/dL Glucose 222 H (74-99) mg/dL POC Glucose (mg/dL) (75-99) mg/dL Hemoglobin A1c 7.9 H (4.0-6.0) % Magnesium 1.3 L (1.6-2.3) mg/dL Total Protein 6.0 L (6.3-8.2) g/dL Triglycerides 213 H (<150) mg/dL HDL Cholesterol 37 L (40-60) mg/dL Urine Glucose (UA) (Negative) Crossmatch See Detail 02/04/18 02/04/18 02/04/18 Range/Units 09:44 13:13 13:58 RBC (3.80-5.40) m/uL Hgb (11.4-16.0) gm/dL Hct (34.0-46.0) % Plt Count (150-450) k/uL APTT 30.1 H (22.0-30.0) sec Chloride (98-107) mmol/L BUN (7-17) mg/dL Glucose (74-99) mg/dL POC Glucose (mg/dL) 232 H 242 H (75-99) mg/dL Hemoglobin A1c (4.0-6.0) % Magnesium (1.6-2.3) mg/dL Total Protein (6.3-8.2) g/dL Triglycerides (<150) mg/dL HDL Cholesterol (40-60) mg/dL Urine Glucose (UA) (Negative) Crossmatch 02/04/18 02/04/18 02/04/18 Range/Units 17:28 20:18 22:06 RBC (3.80-5.40) m/uL Hgb (11.4-16.0) gm/dL Hct (34.0-46.0) % Plt Count (150-450) k/uL APTT 50.5 H (22.0-30.0) sec Chloride (98-107) mmol/L BUN (7-17) mg/dL Glucose (74-99) mg/dL POC Glucose (mg/dL) 169 H 230 H (75-99) mg/dL Hemoglobin A1c (4.0-6.0) % Magnesium (1.6-2.3) mg/dL Total Protein (6.3-8.2) g/dL Triglycerides (<150) mg/dL HDL Cholesterol (40-60) mg/dL Urine Glucose (UA) (Negative) Crossmatch 02/04/18 02/05/18 02/05/18 Range/Units 22:55 03:37 03:37 RBC 3.48 L (3.80-5.40) m/uL Hgb 10.9 L (11.4-16.0) gm/dL Hct 32.4 L (34.0-46.0) % Plt Count 132 L (150-450) k/uL APTT (22.0-30.0) sec Chloride 108 H (98-107) mmol/L BUN (7-17) mg/dL Glucose 153 H (74-99) mg/dL POC Glucose (mg/dL) (75-99) mg/dL Hemoglobin A1c (4.0-6.0) % Magnesium (1.6-2.3) mg/dL Total Protein (6.3-8.2) g/dL Triglycerides (<150) mg/dL HDL Cholesterol (40-60) mg/dL Urine Glucose (UA) 4+ H (Negative) Crossmatch 02/05/18 02/05/18 Range/Units 03:37 07:39 RBC (3.80-5.40) m/uL Hgb (11.4-16.0) gm/dL Hct (34.0-46.0) % Plt Count (150-450) k/uL APTT 43.8 H (22.0-30.0) sec Chloride (98-107) mmol/L BUN (7-17) mg/dL Glucose (74-99) mg/dL POC Glucose (mg/dL) 253 H (75-99) mg/dL Hemoglobin A1c (4.0-6.0) % Magnesium (1.6-2.3) mg/dL Total Protein (6.3-8.2) g/dL Triglycerides (<150) mg/dL HDL Cholesterol (40-60) mg/dL Urine Glucose (UA) (Negative) Crossmatch Microbiology - Last 24 Hours (Table) 02/04/18 13:07 Nasal Screen MRSA/MSSA - Preliminary Nasal Swab Assessment and Plan Assessment: Diabetes mellitus Type II - Continue off metformin and Amaryl - SSI, follow BS - Await A1C - Levemir 10 units X 1 now 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
--- NOTE | 2018-02-05 09:25 | P.PN ---
Subjective Progress Note Date: 02/05/18 Mrs. Acuña is a 72-year-old white female patient of Dr. Pranav Doe, who was brought in for cardiac catheterization today on 02/04/2018, following up positive stress test at the [facility]. Patient has been having substernal chest pain, with bilateral arm heaviness, and ringing in her ears on and off since November. She states her symptoms would be brought after eating, and physical exertion like walking. Relieved with rest, and deep breathing. Lately her symptoms were also accompanied by sweating. Her PCP referred her to cardiology, she underwent exercise stress test on 02/03/2018, and she had chest pain, diaphoresis, significant infero-apical ST segment depression, and she was scheduled for cardiac catheterization today, which showed 70-80% left main lesion, 80% lesion in the circumflex, obtuse marginal that was mid and proximal LAD. The RCA was diffusely diseased, but was nondominant. There was a less than 10 mm gradient across the aortic valve. Lab work showed WBC of 4.2, hemoglobin of 11.7, electrolytes and renal profile were essentially normal, magnesium was 1.3, LFTs were normal. Past medical history is positive for hypertension, diabetes mellitus type 2, hyperlipidemia, depression, remote and brief smoking history, back surgery, breast cancer in 2005, status post lumpectomy and radiation. Most recent mammogram from December 2017 was normal. Echocardiogram showed mild to moderate aortic stenosis with mean gradient of 15 mmHg, mild pulmonary hypertension, concentric LVH and left atrial enlargement, ejection fraction of 55%. Patient was referred to cardiothoracic surgery and she was recommended surgical revascularization to which she agreed. Her surgery is scheduled for 02/06/[address] Alvarado. On 02/05/2018, the patient is calm and comfortable free of any chest resting in bed. No respiratory difficulties. Review the CAT scan of the chest and there is no acute abnormalities. The spirometry shows preserved FEV1 at 82%. She is hemodynamically stable. The patient is awaiting her cardiac surgery and bypass for tomorrow. No nausea. No vomiting. No altered mentation. No other complaints otherwise for now. Objective - Vital Signs Vital signs: Vital Signs Temp 98.4 F 02/05/18 04:00 Pulse 62 02/05/18 07:00 Resp 15 02/05/18 07:00 BP 97/51 02/05/18 07:00 Pulse Ox 98 02/05/18 07:00 Intake & Output 02/04/18 02/05/18 02/05/18 18:59 06:59 18:59 Intake Total 924.28 513.289 200 Output Total 0 500 500 Balance 924.28 13.289 -300 Weight 71.9 kg Intake: IV 725 250 200 Magnesium Sulfate-D5w Pmx 200 1 gm In Dextrose/Water 1 100ml.bag @ 100 mls/hr IVPB Q1H [facility] Rx#: [id number] Sodium Chloride 0.9% 1, 525 250 000 ml @ 75 mls/hr IV . [id number] [facility] Rx#:[id number] Intake, IV Titration 99.28 263.289 Amount Heparin Sod,Pork in 0.45% 99.28 263.289 NaCl 25,000 unit In 0.45 % NaCl 1 500ml.bag @ 12 UNITS/KG/HR 16.32 mls/hr IV .Q24H [facility] Rx#: [id number] Oral 100 Output: Urine 0 500 500 Other: # Voids 0 1 - Exam GENERAL EXAM: Alert, pleasant, 72-year-old white female, comfortable in no apparent distress. HEAD: Normocephalic/atraumatic. EYES: Normal reaction of pupils, equal size. Conjunctiva pink, sclera white. NOSE: Clear with pink turbinates. THROAT: No erythema or exudates. NECK: No masses, no JVD, no thyroid enlargement, no adenopathy. CHEST: No chest wall deformity. Symmetrical expansion. LUNGS: Equal air entry with no crackles, wheeze, rhonchi or dullness. CVS: Regular rate and rhythm, normal S1 and S2, no gallops, no murmurs, no rubs ABDOMEN: Soft, nontender. No hepatosplenomegaly, normal bowel sounds, no guarding or rigidity. EXTREMITIES: No clubbing, no edema, no cyanosis, 2+ pulses and upper and left lower extremity. Right groin puncture is clean dry and intact, soft, there is a FemoStop on. Right pedal pulse is Doppler pulse MUSCULOSKELETAL: Muscle strength and tone normal. SPINE: No scoliosis or deformity SKIN: No rashes CENTRAL NERVOUS SYSTEM: Alert and oriented -3. No focal deficits, tone is normal in all 4 extremities. PSYCHIATRIC: Alert and oriented -3. Appropriate affect. Intact judgment and insight. - Labs CBC & Chem 7: 02/05/18 03:37 02/05/18 03:37 Labs: Abnormal Lab Results - Last 24 Hours (Table) 02/04/18 02/04/18 02/04/18 Range/Units 08:51 08:51 08:51 RBC (3.80-5.40) m/uL Hgb (11.4-16.0) gm/dL Hct (34.0-46.0) % Plt Count (150-450) k/uL APTT (22.0-30.0) sec Chloride (98-107) mmol/L BUN 18 H (7-17) mg/dL Glucose 222 H (74-99) mg/dL POC Glucose (mg/dL) (75-99) mg/dL Hemoglobin A1c 7.9 H (4.0-6.0) % Magnesium 1.3 L (1.6-2.3) mg/dL Total Protein 6.0 L (6.3-8.2) g/dL Triglycerides 213 H (<150) mg/dL HDL Cholesterol 37 L (40-60) mg/dL Urine Glucose (UA) (Negative) Crossmatch See Detail 02/04/18 02/04/18 02/04/18 Range/Units 09:44 13:13 13:58 RBC (3.80-5.40) m/uL Hgb (11.4-16.0) gm/dL Hct (34.0-46.0) % Plt Count (150-450) k/uL APTT 30.1 H (22.0-30.0) sec Chloride (98-107) mmol/L BUN (7-17) mg/dL Glucose (74-99) mg/dL POC Glucose (mg/dL) 232 H 242 H (75-99) mg/dL Hemoglobin A1c (4.0-6.0) % Magnesium (1.6-2.3) mg/dL Total Protein (6.3-8.2) g/dL Triglycerides (<150) mg/dL HDL Cholesterol (40-60) mg/dL Urine Glucose (UA) (Negative) Crossmatch 02/04/18 02/04/18 02/04/18 Range/Units 17:28 20:18 22:06 RBC (3.80-5.40) m/uL Hgb (11.4-16.0) gm/dL Hct (34.0-46.0) % Plt Count (150-450) k/uL APTT 50.5 H (22.0-30.0) sec Chloride (98-107) mmol/L BUN (7-17) mg/dL Glucose (74-99) mg/dL POC Glucose (mg/dL) 169 H 230 H (75-99) mg/dL Hemoglobin A1c (4.0-6.0) % Magnesium (1.6-2.3) mg/dL Total Protein (6.3-8.2) g/dL Triglycerides (<150) mg/dL HDL Cholesterol (40-60) mg/dL Urine Glucose (UA) (Negative) Crossmatch 02/04/18 02/05/18 02/05/18 Range/Units 22:55 03:37 03:37 RBC 3.48 L (3.80-5.40) m/uL Hgb 10.9 L (11.4-16.0) gm/dL Hct 32.4 L (34.0-46.0) % Plt Count 132 L (150-450) k/uL APTT (22.0-30.0) sec Chloride 108 H (98-107) mmol/L BUN (7-17) mg/dL Glucose 153 H (74-99) mg/dL POC Glucose (mg/dL) (75-99) mg/dL Hemoglobin A1c (4.0-6.0) % Magnesium (1.6-2.3) mg/dL Total Protein (6.3-8.2) g/dL Triglycerides (<150) mg/dL HDL Cholesterol (40-60) mg/dL Urine Glucose (UA) 4+ H (Negative) Crossmatch 02/05/18 02/05/18 Range/Units 03:37 07:39 RBC (3.80-5.40) m/uL Hgb (11.4-16.0) gm/dL Hct (34.0-46.0) % Plt Count (150-450) k/uL APTT 43.8 H (22.0-30.0) sec Chloride (98-107) mmol/L BUN (7-17) mg/dL Glucose (74-99) mg/dL POC Glucose (mg/dL) 253 H (75-99) mg/dL Hemoglobin A1c (4.0-6.0) % Magnesium (1.6-2.3) mg/dL Total Protein (6.3-8.2) g/dL Triglycerides (<150) mg/dL HDL Cholesterol (40-60) mg/dL Urine Glucose (UA) (Negative) Crossmatch Microbiology - Last 24 Hours (Table) 02/04/18 13:07 Nasal Screen MRSA/MSSA - Preliminary Nasal Swab Assessment and Plan Plan: #1. Symptomatic coronary artery disease, with 80% left main stenosis, diffuse RCA disease at 70%, 75% circumflex lesion, 70% proximal LAD, and mid LAD up to 95%. Patient is scheduled for coronary artery bypass grafting on 02/06/[address] Alvarado #2. Diabetes mellitus type 2 #3. Hypertension #4. Hyperlipidemia #5. Depression #6. History of right breast cancer, status post lumpectomy and radiation, in 2005. Most recent mammogram was reportedly within normal limits. #7. Remote smoking history, quit smoking at age of 21, smoked a pack a day for 6 years #8. Pulmonary hypertension Plan Patient will be undergoing bypass surgery in a.m. She is free of any chest pain at this point in time. Hemodynamically stable. CAT scan of the chest is within normal limits. Spirometry shows a preserved FEV1. Do not anticipate any major pulmonary complications post surgery. She'll be kept in ICU for further monitoring. We'll continue to follow.
[2018-02-05] MEDS ORDERED: INSULIN DETEMIR 100 UNIT/ML 10 ML VIAL SQ ONE (10:00)
--- NOTE | 2018-02-05 10:09 | PN ---
PROGRESS NOTE Mrs. Acuña is a 72-year-old female who presented with an abnormal myocardial perfusion imaging, underwent cardiac catheterization and was found to have critical stenosis in the left main. She is doing well this morning. Her breathing is stable, she is denying any chest pain. No dizziness. No palpitation. She is scheduled to undergo coronary artery bypass grafting tomorrow. She continues to be on IV heparin and hemodynamically stable. She continues to be at this time in addition to the IV heparin on atenolol 25 mg twice a day, Lipitor 80 mg daily. PHYSICAL EXAMINATION: Blood pressure running in the 100s with a heart in the 60s. LUNGS: Clear. HEART: Regular rate and rhythm., S1, S2. No S3. No rub with a systolic murmur, ejection type heard at the base, no diastolic murmur, no rub. ABDOMEN: Soft, nontender. Right groin no hematoma. IMPRESSION: 1. Severe triple-vessel coronary artery disease with severe left main disease. 2. [id number] aortic stenosis. 3. Hyperlipidemia. RECOMMENDATION: Patient will be continued on IV heparin and proceed with coronary artery bypass grafting tomorrow. MMODL / IJN: [id number] /
--- NOTE | 2018-02-05 10:31 | P.PN ---
Subjective Progress Note Date: 02/05/18 Principal diagnosis: Triple-vessel coronary artery disease with left main disease. Mild to moderate aortic stenosis, grade 3 diastolic dysfunction, mild mitral regurgitation, mild tricuspid regurgitation. Mild thrombocytopenia. Previous medical history of hypertension, diabetes mellitus, hyperlipidemia, pulmonary hypertension, depression, previous tobacco dependence with preoperative FEV1 82% of predicted , back surgery, and breast cancer with lumpectomy and radiation in 2005. Patient's currently sitting up in chair in no acute distress. Denies pain, shortness of breath. Patient has been ambulatory. Teaching reinforced regarding bypass surgery scheduled for tomorrow. All questions answered. Objective - Vital Signs Vital signs: Vital Signs Temp 98.4 F 02/05/18 04:00 Pulse 62 02/05/18 07:00 Resp 15 02/05/18 07:00 BP 97/51 02/05/18 07:00 Pulse Ox 98 02/05/18 07:00 Intake & Output 02/04/18 02/05/18 02/05/18 18:59 06:59 18:59 Intake Total 924.28 513.289 200 Output Total 0 500 500 Balance 924.28 13.289 -300 Weight 71.9 kg Intake: IV 725 250 200 Magnesium Sulfate-D5w Pmx 200 1 gm In Dextrose/Water 1 100ml.bag @ 100 mls/hr IVPB Q1H [facility] Rx#: [id number] Sodium Chloride 0.9% 1, 525 250 000 ml @ 75 mls/hr IV . [id number] [facility] Rx#:[id number] Intake, IV Titration 99.28 263.289 Amount Heparin Sod,Pork in 0.45% 99.28 263.289 NaCl 25,000 unit In 0.45 % NaCl 1 500ml.bag @ 12 UNITS/KG/HR 16.32 mls/hr IV .Q24H [facility] Rx#: [id number] Oral 100 Output: Urine 0 500 500 Other: # Voids 0 1 - Constitutional General appearance: Present: cooperative, no acute distress - Respiratory Details: Lungs sounds clear bilaterally. Respirations even, nonlabored. Currently on room air with oxygen saturation 98%. Able to achieve 1500 mL on her incentive spirometry. - Cardiovascular Details: S1, S2 present, positive systolic murmur. Regular rate and rhythm, sinus rhythm on telemetry. Palpable peripheral pulses bilaterally. No edema present. No calf pain or tenderness noted. - Gastrointestinal Gastrointestinal Comment(s): Abdomen soft, nontender, nondistended. Active bowel sounds 4 quadrants. Tolerating diet. - Genitourinary Genitourinary Comment(s): Continues to void clear, yellow urine. - Integumentary Integumentary Comment(s): Skin is warm and dry with evidence of good perfusion. Right femoral artery cath site soft, nontender. - Neurologic Neurologic: Present: CNII-XII intact - Musculoskeletal Musculoskeletal: Present: gait normal, strength equal bilaterally - Psychiatric Psychiatric: Present: A&O x's 3, appropriate affect, intact judgment & insight - Allied health notes Allied health notes reviewed: nursing - Labs CBC & Chem 7: 02/05/18 03:37 02/05/18 03:37 Labs: Abnormal Lab Results - Last 24 Hours (Table) 02/04/18 02/04/18 02/04/18 Range/Units 08:51 08:51 13:13 RBC (3.80-5.40) m/uL Hgb (11.4-16.0) gm/dL Hct (34.0-46.0) % Plt Count (150-450) k/uL APTT (22.0-30.0) sec Chloride (98-107) mmol/L Glucose (74-99) mg/dL POC Glucose (mg/dL) 242 H (75-99) mg/dL Hemoglobin A1c 7.9 H (4.0-6.0) % Urine Glucose (UA) (Negative) Crossmatch See Detail 02/04/18 02/04/18 02/04/18 Range/Units 13:58 17:28 20:18 RBC (3.80-5.40) m/uL Hgb (11.4-16.0) gm/dL Hct (34.0-46.0) % Plt Count (150-450) k/uL APTT 30.1 H (22.0-30.0) sec Chloride (98-107) mmol/L Glucose (74-99) mg/dL POC Glucose (mg/dL) 169 H 230 H (75-99) mg/dL Hemoglobin A1c (4.0-6.0) % Urine Glucose (UA) (Negative) Crossmatch 02/04/18 02/04/18 02/05/18 Range/Units 22:06 22:55 03:37 RBC 3.48 L (3.80-5.40) m/uL Hgb 10.9 L (11.4-16.0) gm/dL Hct 32.4 L (34.0-46.0) % Plt Count 132 L (150-450) k/uL APTT 50.5 H (22.0-30.0) sec Chloride (98-107) mmol/L Glucose (74-99) mg/dL POC Glucose (mg/dL) (75-99) mg/dL Hemoglobin A1c (4.0-6.0) % Urine Glucose (UA) 4+ H (Negative) Crossmatch 02/05/18 02/05/18 02/05/18 Range/Units 03:37 03:37 07:39 RBC (3.80-5.40) m/uL Hgb (11.4-16.0) gm/dL Hct (34.0-46.0) % Plt Count (150-450) k/uL APTT 43.8 H (22.0-30.0) sec Chloride 108 H (98-107) mmol/L Glucose 153 H (74-99) mg/dL POC Glucose (mg/dL) 253 H (75-99) mg/dL Hemoglobin A1c (4.0-6.0) % Urine Glucose (UA) (Negative) Crossmatch Microbiology - Last 24 Hours (Table) 02/04/18 13:07 Nasal Screen MRSA/MSSA - Preliminary Nasal Swab - Imaging and Cardiology Chest x-ray: report reviewed, image reviewed CT scan - chest: report reviewed, image reviewed Assessment and Plan (1) Coronary artery disease involving left main coronary artery Current Visit: Yes Status: Chronic Code(s): I25.10 - ATHSCL HEART DISEASE OF [place] CORONARY ARTERY W/O ANG PCTRS SNOMED Code(s): 706225000 (2) Hypertension Current Visit: Yes Status: Chronic Code(s): I10 - ESSENTIAL (PRIMARY) HYPERTENSION SNOMED Code(s): 55783817 (3) Hyperlipidemia Current Visit: Yes Status: Chronic Code(s): E78.5 - HYPERLIPIDEMIA, UNSPECIFIED SNOMED Code(s): 35558087 (4) Diabetes mellitus Current Visit: Yes Status: Chronic Code(s): E11.9 - TYPE 2 DIABETES MELLITUS WITHOUT COMPLICATIONS SNOMED Code(s): 61307412 (5) Pulmonary hypertension Current Visit: Yes Status: Chronic Code(s): I27.20 - PULMONARY HYPERTENSION , UNSPECIFIED SNOMED Code(s): 42919755 (6) Chronic diastolic heart failure Current Visit: Yes Status: Chronic Code(s): I50.32 - CHRONIC DIASTOLIC ( CONGESTIVE) HEART FAILURE SNOMED Code(s): 379819261 (7) Depression Current Visit: Yes Status: Chronic Code(s): F32.9 - MAJOR DEPRESSIVE DISORDER, SINGLE EPISODE, UNSPECIFIED SNOMED Code(s): 46416944 (8) History of breast cancer Current Visit: No Status: Resolved Code(s): Z85.3 - PERSONAL HISTORY OF MALIGNANT NEOPLASM OF BREAST SNOMED Code(s): 109387009 (9) History of lumpectomy of right breast Current Visit: No Status: Resolved Code(s): Z98.890 - OTHER SPECIFIED POSTPROCEDURAL STATES SNOMED Code(s): 698928582 (10) History of radiation therapy Current Visit: No Status: Resolved Code(s): Z92.3 - PERSONAL HISTORY OF IRRADIATION SNOMED Code(s): 951281124 (11) Tobacco dependence in remission Current Visit: No Status: Resolved Code(s): F17.201 - NICOTINE DEPENDENCE, UNSPECIFIED, IN REMISSION SNOMED Code(s): 436965341 Plan: 1. Continue aspirin, statin, beta stiven, heparin drip. 2. Continue to reinforce preoperative teaching. 3. Increase activity, ambulate in hallway. 4. Encourage incentive spirometry use. 5. Anticipate coronary artery bypass grafting surgery tomorrow morning with Dr. Alvarado. 6. More recommendations to follow. Time with Patient: Greater than 30
[2018-02-05] MEDS: HEPARIN SOD,PORK IN 0.45% NACL 25,000 UNIT in 0.45% NACL 1 500ML.BAG IV SCH (11:31)
[2018-02-05 11:57] LABS: Glucose,Whole Blood 236 mg/dL (75-99)
[2018-02-05] MEDS ORDERED: HEPARIN SODIUM,PORCINE 5,000 UNIT/ML 1 ML VIAL IV STA (12:56)
[2018-02-05] MEDS: MUPIROCIN 2% OINT 22 GM TUBE NASAL SCH ×3 (12:59→20:41)
[2018-02-05 17:33] LABS: Glucose,Whole Blood 211 mg/dL (75-99)
[2018-02-05 20:42] LABS: Glucose,Whole Blood 176 mg/dL (75-99)
[2018-02-06] MEDS ORDERED: TRANEXAMIC ACID 2,000 MG in SODIUM CHLORIDE 0.9% 180 ML IV ONE (05:00)
[2018-02-06] MEDS ORDERED: NITROGLYCERIN-D5W PMX 25 MG/250 ML BTL IV ONE (05:00)
[2018-02-06] MEDS ORDERED: CALCIUM CHLORIDE 100 MG/ML 10 ML SYRINGE IVP ONE (05:00)
[2018-02-06] MEDS ORDERED: ASPIRIN 325 MG TAB PO ONE (05:00)
[2018-02-06] MEDS ORDERED: PHENYLEPHRINE-0.9% NACL SYG 1 MG/10 ML SYRINGE IV ONE ×4 (05:00)
[2018-02-06] MEDS ORDERED: HEPARIN SODIUM 1,000 UN/ML (10ML VL) IV ONE (05:00)
[2018-02-06] MEDS ORDERED: ALBUMIN HUMAN 25% 50 ML in EMPTY BAG 1 BAG IVPB ONE (05:00)
[2018-02-06] MEDS ORDERED: PROTAMINE SULFATE 250 MG in EMPTY BAG 1 BAG IV ONE (05:00)
[2018-02-06] MEDS ORDERED: METOPROLOL TARTRATE 12.5 MG TAB PO ONE (05:00)
[2018-02-06] MEDS ORDERED: DEXTROSE 5% IN WATER 1,000 ML with POTASSIUM CHLORIDE 25 MEQ, SODIUM CHLORIDE 2.5MEQ/ML... IV SCH ×6 (05:00)
[2018-02-06] MEDS ORDERED: CHLORHEXIDINE GLUCONATE 15 ML CUP MUCOUS MEM ONE (05:00)
[2018-02-06] MEDS ORDERED: SODIUM BICARB 8.4% 50 ML SYR (1 MEQ/ML) IV ONE (05:00)
[2018-02-06] MEDS ORDERED: NOREPINEPHRIN 4 MG-0.9% NS PMX 4 MG/250 ML ML IV SCH (05:00)
[2018-02-06] MEDS ORDERED: ceFAZolin 1,000 MG in SODIUM CHLORIDE 0.9% IRRIGATIO 1,000 ML IRRIGATION ONE (05:00)
[2018-02-06] MEDS ORDERED: CLEVIDIPINE BUTYRATE 25 MG in EMPTY BAG 1 BAG IV ONE (05:00)
[2018-02-06] MEDS ORDERED: PAPAVERINE 360 MG in SODIUM CHLORIDE 0.9% 90 ML IV ONE (05:00)
[2018-02-06] MEDS ORDERED: NITROGLYCERIN-D5W PMX 50 MG in DEXTROSE/WATER 1 250ML.BAG IV ONE (05:00)
[2018-02-06] MEDS ORDERED: HEPARIN SODIUM,PORCINE 5,000 UNIT in SODIUM CHLORIDE 0.9% 500 ML IV ONE (05:00)
[2018-02-06] MEDS ORDERED: ATORVASTATIN 10 MG TAB PO ONE (05:00)
[2018-02-06] MEDS ORDERED: MAGNESIUM SULFATE SYG 4.06 MEQ/ML SYRINGE IV ONE (05:00)
[2018-02-06] MEDS ORDERED: PROTAMINE SULFATE 10 MG/ML 25 ML VIAL IV ONE (05:00)
[2018-02-06] MEDS ORDERED: DEXTROSE 5% IN WATER 1,000 ML with POTASSIUM CHLORIDE 110 MEQ, MAGNESIUM SULFATE 16 MEQ... IV SCH ×5 (05:00)
[2018-02-06] MEDS ORDERED: ALBUMIN HUMAN 5% 500 ML in EMPTY BAG 1 BAG IVPB ONE ×6 (05:00)
[2018-02-06] MEDS ORDERED: ceFAZolin 2,000 MG in SODIUM CHLORIDE 0.9% 30 ML IVPB ONE (05:00)
[2018-02-06] MEDS ORDERED: INSULIN REGULAR 100 UNIT in SODIUM CHLORIDE 0.9% 100 ML IV ONE (05:00)
[2018-02-06] MEDS ORDERED: MANNITOL 25% 12.5 GM/50 ML VIAL IV ONE ×2 (05:00)
[2018-02-06] MEDS ORDERED: PHENYLEPHRINE 40 MG in SODIUM CHLORIDE 0.9% 250 ML IV ONE (05:00)
[2018-02-06 05:47] LABS: Basophils % (A) 0 %; Eosinophils # (A) 0.1 k/uL (0-0.7); Eosinophils % (A) 1 %; HGB 11.7 gm/dL (11.4-16.0); Lymphocytes # (A) 1.3 k/uL (1.0-4.8); Lymphocytes % (A) 27 %; MCH 31.3 pg (25.0-35.0); MCHC 33.4 g/dL (31.0-37.0); MCV 93.9 fL (80.0-100.0); Mean Platelet Volume 7.4; Monocytes # (A) 0.3 k/uL (0-1.0); Monocytes % (A) 6 %; Neutrophils % (A) 64 %; Platelet Count 160 k/uL (150-450); RBC 3.73 m/uL (3.80-5.40); RDW 13.6 % (11.5-15.5); WBC 4.7 k/uL (3.8-10.6)
[2018-02-06 05:56] LABS: INR 1.1 (<1.2); Partial Thromboplastin Time 77.1 sec (22.0-30.0); Prothrombin Time 10.4 sec (9.0-12.0)
[2018-02-06 05:57] LABS: Anion Gap 9 mmol/L; Blood Urea Nitrogen 17 mg/dL (7-17); Calcium 9.2 mg/dL (8.4-10.2); Carbon Dioxide 23 mmol/L (22-30); Chloride 107 mmol/L (98-107); Glucose 227 mg/dL (74-99); Magnesium 1.6 mg/dL (1.6-2.3); Phosphorus 4.5 mg/dL (2.5-4.5); Potassium 4.8 mmol/L (3.5-5.1); Sodium 139 mmol/L (137-145)
[2018-02-06 06:40] LABS: Glucose,Whole Blood 230 mg/dL (75-99)
[2018-02-06] MEDS: ceFAZolin 2 GM in SODIUM CHLORIDE 0.9% 30 ML IVPB ONE ×2 (08:25→09:13)
[2018-02-06 08:42] LABS: ABG HCO3 24 mmol/L (21-25); ABG PCO2 35 mmHg (35-45); ABG PH 7.44 (7.35-7.45); ABG PO2 319 mmHg (83-108); ABG Potassium Whole Blood 4.5 mmol/L (3.4-4.5); ABG Sodium Whole Blood 142 mmol/L (135-146); ABG TCO2 25 mmol/L (19-24)
[2018-02-06 09:49] LABS: ABG Base Excess 0.5 mmol/L; ABG HCO3 26 mmol/L (21-25); ABG Oxygen Saturation 99.3 % (94-97); ABG PCO2 43 mmHg (35-45); ABG PH 7.38 (7.35-7.45); ABG PO2 132 mmHg (83-108); ABG Potassium Whole Blood 4.6 mmol/L (3.4-4.5); ABG Sodium Whole Blood 140 mmol/L (135-146); ABG TCO2 27 mmol/L (19-24)
[2018-02-06 10:38] LABS: ABG Base Excess -1.4 mmol/L; ABG HCO3 24 mmol/L (21-25); ABG PCO2 41 mmHg (35-45); ABG PH 7.37 (7.35-7.45); ABG PO2 375 mmHg (83-108); ABG Potassium Whole Blood 5.9 mmol/L (3.4-4.5); ABG Sodium Whole Blood 134 mmol/L (135-146); ABG TCO2 25 mmol/L (19-24)
[2018-02-06 11:02] LABS: ABG Base Excess -0.6 mmol/L; ABG HCO3 24 mmol/L (21-25); ABG PCO2 40 mmHg (35-45); ABG PH 7.39 (7.35-7.45); ABG PO2 296 mmHg (83-108); ABG Potassium Whole Blood 4.6 mmol/L (3.4-4.5); ABG Sodium Whole Blood 137 mmol/L (135-146); ABG TCO2 26 mmol/L (19-24)
[2018-02-06 11:31] LABS: ABG Base Excess -0.2 mmol/L; ABG HCO3 24 mmol/L (21-25); ABG PCO2 39 mmHg (35-45); ABG PH 7.41 (7.35-7.45); ABG PO2 256 mmHg (83-108); ABG Potassium Whole Blood 4.6 mmol/L (3.4-4.5); ABG Sodium Whole Blood 138 mmol/L (135-146); ABG TCO2 26 mmol/L (19-24)
[2018-02-06 12:32] LABS: ABG Base Excess -2.4 mmol/L; ABG HCO3 23 mmol/L (21-25); ABG Oxygen Saturation 98.9 % (94-97); ABG PCO2 40 mmHg (35-45); ABG PH 7.37 (7.35-7.45); ABG PO2 115 mmHg (83-108); ABG Potassium Whole Blood 3.9 mmol/L (3.4-4.5); ABG Sodium Whole Blood 140 mmol/L (135-146); ABG TCO2 24 mmol/L (19-24)
[2018-02-06] MEDS ORDERED: SODIUM CHLORIDE 0.9% 50 ML with ceFAZolin 2,000 MG IV ONE ×2 (12:55)
[2018-02-06 13:01] LABS: ABG Base Excess 0.6 mmol/L; ABG HCO3 25 mmol/L (21-25); ABG Oxygen Saturation 99.8 % (94-97); ABG PCO2 40 mmHg (35-45); ABG PH 7.41 (7.35-7.45); ABG PO2 174 mmHg (83-108); ABG Potassium Whole Blood 4.3 mmol/L (3.4-4.5); ABG Sodium Whole Blood 142 mmol/L (135-146); ABG TCO2 26 mmol/L (19-24)
[2018-02-06] MEDS ORDERED: IPRATROPIUM-ALBUTEROL 3 ML NEB INHALATION PRN (13:18)
[2018-02-06] MEDS ORDERED: PROPOFOL 1,000 MG in EMPTY BAG 1 BAG IV SCH (13:18)
[2018-02-06] MEDS ORDERED: Potassium Replacement Protocol 1 EACH MISC MISCELLANE PRN (13:18)
[2018-02-06] MEDS ORDERED: Phosphorus Replacement Protoco 1 EACH MISC MISCELLANE PRN (13:18)
[2018-02-06] MEDS ORDERED: BENZOCAINE/MENTHOL LOZENG 1 EACH LOZENGE MUCOUS MEM PRN (13:18)
[2018-02-06] MEDS ORDERED: DEXTROSE 5% IN WATER 100 ML with AMIODARONE 150 MG IV PRN (13:18)
[2018-02-06] MEDS ORDERED: CALCIUM CHLORIDE 1,000 MG in SODIUM CHLORIDE 0.9% 100 ML IV PRN (13:18)
[2018-02-06] MEDS ORDERED: ONDANSETRON 4 MG/2 ML VIAL IVP PRN (13:18)
[2018-02-06] MEDS ORDERED: AMIODARONE 450 MG in DEXTROSE 5% IN WATER 250 ML IV PRN ×2 (13:18)
[2018-02-06] MEDS ORDERED: Magnesium Replacement Protocol 1 EACH MISC MISCELLANE PRN (13:18)
[2018-02-06] MEDS: NITROGLYCERIN-D5W PMX 50 MG in DEXTROSE/WATER 1 250ML.BAG IV SCH (13:30)
[2018-02-06 13:44] LABS: Glucose,Whole Blood 135 mg/dL (75-99)
[2018-02-06] MEDS: CLEVIDIPINE BUTYRATE 25 MG in EMPTY BAG 1 BAG IV SCH ×2 (13:50→18:18)
[2018-02-06 14:09] LABS: ABG Base Excess -1.6 mmol/L; ABG HCO3 25 mmol/L (21-25); ABG Oxygen Saturation 99.3 % (94-97); ABG PCO2 49 mmHg (35-45); ABG PH 7.31 (7.35-7.45); ABG PO2 131 mmHg (83-108); ABG TCO2 26 mmol/L (19-24)
--- NOTE | 2018-02-06 14:31 | XR ---
EXAMINATION TYPE: XR chest 1V portable DATE OF EXAM: 02/06/2018 Comparison: 02/04/2018 Clinical History: 72-year-old female Post Operative Cardiac Surgery Findings: ET tube and NG tube are satisfactory. Right IJ sheath with Livingston-Sweetie catheter in the proximal right m ain pulmonary artery. Mediastinal drain is present. Left-sided chest tube without appreciable pneumot horax. Heart borderline enlarged. There is some patchy retrocardiac opacity new from prior. No signif icant pleural effusion seen. Median sternotomy wires. Impression: Postoperative changes with lines and tubes as above. New postoperative patchy retrocardiac atelectasi s.
[2018-02-06 14:40] LABS: Glucose,Whole Blood 125 mg/dL (75-99)
--- NOTE | 2018-02-06 14:43 | P.PN ---
Subjective Progress Note Date: 02/06/18 Principal diagnosis: chest pain Patient is a 72-year-old female with a complex medical history including diabetes mellitus type 2 with neuropathy managed on oral medications, hypertension, dyslipidemia, GERD, pulmonary hypertension, diastolic dysfunction , and depression who presented for an elective outpatient cardiac catheterization. Initially she had seen Dr. Leigh in the office and had a stress test performed. During her stress test she was noted to have EKG changes consistent with anterior apical and inferior lateral reversible defect. She developed her chest pain symptoms and received a nitroglycerin. She subsequently underwent cardiac catheterization on the morning of 02/04 which showed disease in the left main, RCA, circumflex, and LAD. She was subsequently placed on a heparin drip and admitted to the ICU. Dr. Alvarado from cardiothoracic surgery was consulted for regarding revascularization recommendations. Preoperative testing was started on 02/04/18. On the morning of 02/06 she underwent two-vessel bypass grafting with left internal mammary artery to the LAD and saphenous vein graft to the obtuse marginal. She was admitted to the ICU sedated on the ventilator. Intraoperatively she received 1 unit of packed red blood cells. Patient seen and examined at bedside in the ICU after her procedure. She is currently sedated and on ventilator. Her blood pressure has been labile requiring both vasodilatory agents and vasopressors agents. Nursing is still working and titration. Objective - Vital Signs Vital signs: Vital Signs Temp 98.2 F 02/06/18 06:21 Pulse 56 L 02/06/18 06:21 Resp 16 02/06/18 06:21 BP 115/56 02/06/18 06:21 Pulse Ox 96 02/06/18 06:21 Intake & Output 02/05/18 02/06/18 02/06/18 18:59 06:59 18:59 Intake Total 770.970 548.158 443 Output Total 1650 1550 1125 Balance -879.030 -1001.842 -682 Weight 71.7 kg Intake: IV 300 110 133 Magnesium Sulfate-D5w Pmx 200 1 gm In Dextrose/Water 1 100ml.bag @ 100 mls/hr IVPB Q1H [facility] Rx#: [id number] Sodium Chloride 0.9% 1, 100 110 000 ml @ 75 mls/hr IV . [id number] [facility] Rx#:[id number] Intake, IV Titration 170.970 438.158 Amount Heparin Sod,Pork in 0.45% 170.970 438.158 NaCl 25,000 unit In 0.45 % NaCl 1 500ml.bag @ 12 UNITS/KG/HR 16.32 mls/hr IV .Q24H [facility] Rx#: [id number] Oral 300 Blood Product 310 Rc As-1 Unit 310 [id number] Output: Urine 1650 1550 325 Estimated Blood Loss 800 Other: # Voids 1 - Exam General: Mild distress, ill-appearing, appears at stated age Derm: warm, dry, bilateral Jose wraps to lower extremities Head: atraumatic, normocephalic, symmetric Eyes: EOMI, no lid lag, anicteric sclera Mouth: no lip lesion, mucus membranes moist Cardiovascular: S1S2 reg with murmur, mediastinal chest tube in place Lungs: Coarse breath sounds bilateral, no rhonchi, no rales , no accessory muscle use, on vent, chest tube in place Abdominal: soft, nontender to palpation, no guarding, no appreciable organomegaly Ext: no gross muscle atrophy, no edema, no contractures Neuro: Currently sedated Psych: Sedated on vent - Labs CBC & Chem 7: 02/06/18 13:40 02/06/18 13:40 Labs: Abnormal Lab Results - Last 24 Hours (Table) 02/04/18 02/05/18 02/05/18 Range/Units 08:51 17:30 19:46 RBC (3.80-5.40) m/uL APTT 58.1 H (22.0-30.0) sec ABG pH (7.35-7.45) ABG pCO2 (35-45) mmHg ABG pO2 (83-108) mmHg ABG HCO3 (21-25) mmol/L ABG Total CO2 (19-24) mmol/L ABG O2 Saturation (94-97) % ABG Hematocrit (34.0-46.0) % ABG Sodium (135-146) mmol/L ABG Potassium (3.4-4.5) mmol/L ABG Ionized Calcium (4.5-5.3) mg/dL ABG Glucose (75-99) mg/dL ABG Lactic Acid (0.5-1.6) mmol/L Hemoglobin (11.4-16.0) gm/dL Glucose (74-99) mg/dL POC Glucose (mg/dL) 211 H (75-99) mg/dL Arterial Blood Potassium (3.4-4.5) mmol/L Arterial Blood Glucose (75-99) mg/dL Crossmatch See Detail 02/05/18 02/06/18 02/06/18 Range/Units 20:39 05:37 05:37 RBC 3.73 L (3.80-5.40) m/uL APTT (22.0-30.0) sec ABG pH (7.35-7.45) ABG pCO2 (35-45) mmHg ABG pO2 (83-108) mmHg ABG HCO3 (21-25) mmol/L ABG Total CO2 (19-24) mmol/L ABG O2 Saturation (94-97) % ABG Hematocrit (34.0-46.0) % ABG Sodium (135-146) mmol/L ABG Potassium (3.4-4.5) mmol/L ABG Ionized Calcium (4.5-5.3) mg/dL ABG Glucose (75-99) mg/dL ABG Lactic Acid (0.5-1.6) mmol/L Hemoglobin (11.4-16.0) gm/dL Glucose 227 H (74-99) mg/dL POC Glucose (mg/dL) 176 H (75-99) mg/dL Arterial Blood Potassium (3.4-4.5) mmol/L Arterial Blood Glucose (75-99) mg/dL Crossmatch 02/06/18 02/06/18 02/06/18 Range/Units 05:37 06:27 08:44 RBC (3.80-5.40) m/uL APTT 77.1 H (22.0-30.0) sec ABG pH (7.35-7.45) ABG pCO2 (35-45) mmHg ABG pO2 319 H (83-108) mmHg ABG HCO3 (21-25) mmol/L ABG Total CO2 25 H (19-24) mmol/L ABG O2 Saturation 100.0 H (94-97) % ABG Hematocrit 31 L (34.0-46.0) % ABG Sodium (135-146) mmol/L ABG Potassium (3.4-4.5) mmol/L ABG Ionized Calcium (4.5-5.3) mg/dL ABG Glucose 214 H (75-99) mg/dL ABG Lactic Acid 1.8 H (0.5-1.6) mmol/L Hemoglobin 9.9 L (11.4-16.0) gm/dL Glucose (74-99) mg/dL POC Glucose (mg/dL) 230 H (75-99) mg/dL Arterial Blood Potassium (3.4-4.5) mmol/L Arterial Blood Glucose 214 H (75-99) mg/dL Crossmatch 02/06/18 02/06/18 02/06/18 Range/Units 09:51 10:40 11:04 RBC (3.80-5.40) m/uL APTT (22.0-30.0) sec ABG pH (7.35-7.45) ABG pCO2 (35-45) mmHg ABG pO2 132 H 375 H 296 H (83-108) mmHg ABG HCO3 26 H (21-25) mmol/L ABG Total CO2 27 H 25 H 26 H (19-24) mmol/L ABG O2 Saturation 99.3 H 100.0 H 100.0 H (94-97) % ABG Hematocrit 31 L 24 L 24 L (34.0-46.0) % ABG Sodium 134 L (135-146) mmol/L ABG Potassium 4.6 H 5.9 H 4.6 H (3.4-4.5) mmol/L ABG Ionized Calcium 4.2 L 4.4 L (4.5-5.3) mg/dL ABG Glucose 202 H 280 H 258 H (75-99) mg/dL ABG Lactic Acid 2.0 H 2.3 H* 2.5 H* (0.5-1.6) mmol/L Hemoglobin 10.1 L 7.8 L 7.7 L (11.4-16.0) gm/dL Glucose (74-99) mg/dL POC Glucose (mg/dL) (75-99) mg/dL Arterial Blood Potassium 4.6 H 5.9 H 4.6 H (3.4-4.5) mmol/L Arterial Blood Glucose 202 H 280 H 258 H (75-99) mg/dL Crossmatch 02/06/18 02/06/18 02/06/18 Range/Units 11:33 12:34 13:03 RBC (3.80-5.40) m/uL APTT (22.0-30.0) sec ABG pH (7.35-7.45) ABG pCO2 (35-45) mmHg ABG pO2 256 H 115 H 174 H (83-108) mmHg ABG HCO3 (21-25) mmol/L ABG Total CO2 26 H 26 H (19-24) mmol/L ABG O2 Saturation 100.0 H 98.9 H 99.8 H (94-97) % ABG Hematocrit 24 L 21 L 20 L* (34.0-46.0) % ABG Sodium (135-146) mmol/L ABG Potassium 4.6 H (3.4-4.5) mmol/L ABG Ionized Calcium 4.4 L 4.4 L (4.5-5.3) mg/dL ABG Glucose 233 H 167 H 144 H (75-99) mg/dL ABG Lactic Acid 2.7 H* 2.3 H* 2.1 H (0.5-1.6) mmol/L Hemoglobin 7.8 L 6.8 L* 6.7 L* (11.4-16.0) gm/dL Glucose (74-99) mg/dL POC Glucose (mg/dL) (75-99) mg/dL Arterial Blood Potassium 4.6 H (3.4-4.5) mmol/L Arterial Blood Glucose 233 H 167 H 144 H (75-99) mg/dL Crossmatch 02/06/18 02/06/18 02/06/18 Range/Units 13:43 14:06 14:35 RBC (3.80-5.40) m/uL APTT (22.0-30.0) sec ABG pH 7.31 L (7.35-7.45) ABG pCO2 49 H (35-45) mmHg ABG pO2 131 H (83-108) mmHg ABG HCO3 (21-25) mmol/L ABG Total CO2 26 H (19-24) mmol/L ABG O2 Saturation 99.3 H (94-97) % ABG Hematocrit (34.0-46.0) % ABG Sodium (135-146) mmol/L ABG Potassium (3.4-4.5) mmol/L ABG Ionized Calcium (4.5-5.3) mg/dL ABG Glucose (75-99) mg/dL ABG Lactic Acid (0.5-1.6) mmol/L Hemoglobin (11.4-16.0) gm/dL Glucose (74-99) mg/dL POC Glucose (mg/dL) 135 H 125 H (75-99) mg/dL Arterial Blood Potassium (3.4-4.5) mmol/L Arterial Blood Glucose (75-99) mg/dL Crossmatch Microbiology - Last 24 Hours (Table) 02/04/18 22:55 Urine Culture - Final Urine,Voided 02/04/18 13:07 Nasal Screen MRSA/MSSA - Final Nasal Swab Assessment and Plan Assessment: 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 Alvarado's service -Currently sedated on vent with chest tube, mediastinal tube, and external pacemaker wires in place Anemia secondary to acute blood loss as an expectorant and anticipated outcome of surgical procedure -Received 1 unit packed red blood cells in the OR -Follow CBC Thrombocytopenia, -Likely consumptive and reactive with surgery -Follow CBC -2 units of platelets on order Diabetes mellitus Type II - Continue off metformin and Amaryl - follow BS, on post operative insulin drip -A1c 7.9. HTN - follow BP -Home atenolol, lisinopril and norvasc on hold postoperatively HLD - statin GERD -protonix Depression -effexof DVT prophylaxis: Heparin D/w : Dr. Alvarado
[2018-02-06 14:52] LABS: INR 1.4 (<1.2); Partial Thromboplastin Time 47.3 sec (22.0-30.0); Prothrombin Time 13.2 sec (9.0-12.0)
[2018-02-06 14:53] LABS: Basophils % (A) 0 %; Eosinophils % (A) 1 %; HCT 21.2 % (34.0-46.0); Ionized Calcium 4.7 mg/dL (4.5-5.3); Lymphocytes # (A) 0.6 k/uL (1.0-4.8); Lymphocytes % (A) 14 %; MCH 32.8 pg (25.0-35.0); MCHC 34.9 g/dL (31.0-37.0); MCV 93.9 fL (80.0-100.0); Mean Platelet Volume 9.2; Monocytes # (A) 0.3 k/uL (0-1.0); Monocytes % (A) 6 %; Neutrophils # (A) 3.6 k/uL (1.3-7.7); Neutrophils % (A) 79 %; RBC 2.25 m/uL (3.80-5.40); RDW 14.3 % (11.5-15.5); WBC 4.6 k/uL (3.8-10.6)
[2018-02-06 14:54] LABS: HGB 7.4 gm/dL (11.4-16.0)
[2018-02-06 15:03] LABS: ALT 27 U/L (9-52); AST 22 U/L (14-36); Albumin 3.2 g/dL (3.5-5.0); Alkaline Phosphatase <20 U/L (38-126); Anion Gap 6 mmol/L; Blood Urea Nitrogen 13 mg/dL (7-17); Calcium 7.7 mg/dL (8.4-10.2); Carbon Dioxide 24 mmol/L (22-30); Chloride 110 mmol/L (98-107); Glucose 121 mg/dL (74-99); Potassium 4.5 mmol/L (3.5-5.1); Sodium 140 mmol/L (137-145); Total Bilirubin 0.4 mg/dL (0.2-1.3); Total Protein 4.4 g/dL (6.3-8.2)
[2018-02-06 15:07] LABS: Hypochromasia (M) Present; Poikilocytosis (M) Present
[2018-02-06 15:08] LABS: Platelet Count 56 k/uL (150-450)
--- NOTE | 2018-02-06 15:21 | P.PN ---
Subjective Progress Note Date: 02/06/18 Principal diagnosis: Multivessel coronary artery disease, status post two-vessel coronary artery bypass grafting postop day 0 Mrs. Acuña is a 72-year-old white female patient of Dr. Pranav Doe, who was brought in for cardiac catheterization today on 02/04/2018, following up positive stress test at the [facility]. Patient has been having substernal chest pain, with bilateral arm heaviness, and ringing in her ears on and off since November. She states her symptoms would be brought after eating, and physical exertion like walking. Relieved with rest, and deep breathing. Lately her symptoms were also accompanied by sweating. Her PCP referred her to cardiology, she underwent exercise stress test on 02/03/2018, and she had chest pain, diaphoresis, significant infero-apical ST segment depression, and she was scheduled for cardiac catheterization today, which showed 70-80% left main lesion, 80% lesion in the circumflex, obtuse marginal that was mid and proximal LAD. The RCA was diffusely diseased, but was nondominant. There was a less than 10 mm gradient across the aortic valve. Lab work showed WBC of 4.2, hemoglobin of 11.7, electrolytes and renal profile were essentially normal, magnesium was 1.3, LFTs were normal. Past medical history is positive for hypertension, diabetes mellitus type 2, hyperlipidemia, depression, remote and brief smoking history, back surgery, breast cancer in 2005, status post lumpectomy and radiation. Most recent mammogram from December 2017 was normal. Echocardiogram showed mild to moderate aortic stenosis with mean gradient of 15 mmHg, mild pulmonary hypertension, concentric LVH and left atrial enlargement, ejection fraction of 55%. Patient was referred to cardiothoracic surgery and she was recommended surgical revascularization to which she agreed. Her surgery is scheduled for 02/06/[address] Alvarado. On 02/05/2018, the patient is calm and comfortable free of any chest resting in bed. No respiratory difficulties. Review the CAT scan of the chest and there is no acute abnormalities. The spirometry shows preserved FEV1 at 82%. She is hemodynamically stable. The patient is awaiting her cardiac surgery and bypass for tomorrow. No nausea. No vomiting. No altered mentation. No other complaints otherwise for now. On 02/06/2018 patient seen in follow-up in intensive care, she is status post two-vessel coronary artery bypass grafting, ZELAYA to LAD and SVG to the up to his marginal. She is sedated, on mechanical ventilation, on on SIMV mode of ventilation, with a rate of 12, 400 tidal volume, FiO2 of 100%, and PEEP of 5. Postop blood gases were reviewed, showed pO2 131, pCO2 of 48.5, and pH of 7.3. She was placed on assist-control mode of ventilation, with a rate of 18, tidal vital 500, FiO2 100% and PEEP of 5. Patient's O2 sat is 100%, and FiO2 was dropped to 80%. Venous IV drips is LR at a rate of 50 ML per hour, clevidipine at 1 mg per hour, nitroglycerin at 5 mics per minute, and Diprivan 25 mcg/kg/ min. she is hemodynamically stable, cardiac outputs and cardiac index are 5.9, and 3.3. PA pressures of 51/27, with a map of 39. CVP is 21. Patient is in sinus rhythm, AV wires are present, external pacemaker with backup rate of VVI 40 Bpm. Postop blood work shows a VC of 4.6, hemoglobin of 7.4, INR is 1.4, sodium is 140, potassium is 4.5, chloride is 110, renal profile is within normal limits. Postop chest x-ray has been reviewed by Dr. Harper, and shows stop changes with lines and tubes, and a new postoperative patchy retrocardiac atelectasis. Indwelling catheter is present, and patient is nonoliguric. 2 mediastinal and one left pleural chest tube are present, there is 40 mL of sanguinous output from the mediastinal, and 30 mL out of the left pleural chest tubes. Objective - Vital Signs Vital signs: Vital Signs Temp 98.2 F 02/06/18 06:21 Pulse 56 L 02/06/18 06:21 Resp 16 02/06/18 06:21 BP 115/56 02/06/18 06:21 Pulse Ox 96 02/06/18 06:21 Intake & Output 02/05/18 02/06/18 02/06/18 18:59 06:59 18:59 Intake Total 770.970 548.158 443 Output Total 1650 1550 1125 Balance -879.030 -1001.842 -682 Weight 71.7 kg Intake: IV 300 110 133 Magnesium Sulfate-D5w Pmx 200 1 gm In Dextrose/Water 1 100ml.bag @ 100 mls/hr IVPB Q1H [facility] Rx#: [id number] Sodium Chloride 0.9% 1, 100 110 000 ml @ 75 mls/hr IV . [id number] [facility] Rx#:[id number] Intake, IV Titration 170.970 438.158 Amount Heparin Sod,Pork in 0.45% 170.970 438.158 NaCl 25,000 unit In 0.45 % NaCl 1 500ml.bag @ 12 UNITS/KG/HR 16.32 mls/hr IV .Q24H [facility] Rx#: [id number] Oral 300 Blood Product 310 Rc As-1 Unit 310 [id number] Output: Urine 1650 1550 325 Estimated Blood Loss 800 Other: # Voids 1 - Exam GENERAL EXAM: 72-year-old white female, sedated and intubated, on mechanical ventilator HEAD: Normocephalic/atraumatic. EYES: Normal reaction of pupils, equal size. Conjunctiva pink, sclera white. NOSE: Clear with pink turbinates. THROAT: No erythema or exudates. NECK: No masses, no JVD, no thyroid enlargement, no adenopathy. CHEST: No chest wall deformity. Symmetrical expansion. Midsternal incision is clean dry and intact, covered with surgical dressing, 2 mediastinal and one left pleural chest tube are present, with small amount of sanguinous output in the pleural plaques, AV wires to external pacemaker with a backup rate of 40 BPM LUNGS: Equal air entry with scattered rhonchi CVS: Regular rate and rhythm, normal S1 and S2, no gallops, no murmurs, no rubs ABDOMEN: Soft, nontender. No hepatosplenomegaly, normal bowel sounds, no guarding or rigidity. EXTREMITIES: No clubbing, no edema, no cyanosis, 2+ pulses and upper and left lower extremity. Right groin puncture is clean dry and intact, soft. Bilateral lower extremities, with Jose wraps, SCDs on MUSCULOSKELETAL: Muscle strength and tone normal. SPINE: No scoliosis or deformity SKIN: No rashes CENTRAL NERVOUS SYSTEM: Sedated PSYCHIATRIC: unable to assess sedated - Labs CBC & Chem 7: 02/06/18 05:37 02/06/18 05:37 Labs: Abnormal Lab Results - Last 24 Hours (Table) 02/04/18 02/05/18 02/05/18 Range/Units 08:51 17:30 19:46 RBC (3.80-5.40) m/uL APTT 58.1 H (22.0-30.0) sec ABG pH (7.35-7.45) ABG pCO2 (35-45) mmHg ABG pO2 (83-108) mmHg ABG HCO3 (21-25) mmol/L ABG Total CO2 (19-24) mmol/L ABG O2 Saturation (94-97) % ABG Hematocrit (34.0-46.0) % ABG Sodium (135-146) mmol/L ABG Potassium (3.4-4.5) mmol/L ABG Ionized Calcium (4.5-5.3) mg/dL ABG Glucose (75-99) mg/dL ABG Lactic Acid (0.5-1.6) mmol/L Hemoglobin (11.4-16.0) gm/dL Glucose (74-99) mg/dL POC Glucose (mg/dL) 211 H (75-99) mg/dL Arterial Blood Potassium (3.4-4.5) mmol/L Arterial Blood Glucose (75-99) mg/dL Crossmatch See Detail 02/05/18 02/06/18 02/06/18 Range/Units 20:39 05:37 05:37 RBC 3.73 L (3.80-5.40) m/uL APTT (22.0-30.0) sec ABG pH (7.35-7.45) ABG pCO2 (35-45) mmHg ABG pO2 (83-108) mmHg ABG HCO3 (21-25) mmol/L ABG Total CO2 (19-24) mmol/L ABG O2 Saturation (94-97) % ABG Hematocrit (34.0-46.0) % ABG Sodium (135-146) mmol/L ABG Potassium (3.4-4.5) mmol/L ABG Ionized Calcium (4.5-5.3) mg/dL ABG Glucose (75-99) mg/dL ABG Lactic Acid (0.5-1.6) mmol/L Hemoglobin (11.4-16.0) gm/dL Glucose 227 H (74-99) mg/dL POC Glucose (mg/dL) 176 H (75-99) mg/dL Arterial Blood Potassium (3.4-4.5) mmol/L Arterial Blood Glucose (75-99) mg/dL Crossmatch 02/06/18 02/06/18 02/06/18 Range/Units 05:37 06:27 08:44 RBC (3.80-5.40) m/uL APTT 77.1 H (22.0-30.0) sec ABG pH (7.35-7.45) ABG pCO2 (35-45) mmHg ABG pO2 319 H (83-108) mmHg ABG HCO3 (21-25) mmol/L ABG Total CO2 25 H (19-24) mmol/L ABG O2 Saturation 100.0 H (94-97) % ABG Hematocrit 31 L (34.0-46.0) % ABG Sodium (135-146) mmol/L ABG Potassium (3.4-4.5) mmol/L ABG Ionized Calcium (4.5-5.3) mg/dL ABG Glucose 214 H (75-99) mg/dL ABG Lactic Acid 1.8 H (0.5-1.6) mmol/L Hemoglobin 9.9 L (11.4-16.0) gm/dL Glucose (74-99) mg/dL POC Glucose (mg/dL) 230 H (75-99) mg/dL Arterial Blood Potassium (3.4-4.5) mmol/L Arterial Blood Glucose 214 H (75-99) mg/dL Crossmatch 02/06/18 02/06/18 02/06/18 Range/Units 09:51 10:40 11:04 RBC (3.80-5.40) m/uL APTT (22.0-30.0) sec ABG pH (7.35-7.45) ABG pCO2 (35-45) mmHg ABG pO2 132 H 375 H 296 H (83-108) mmHg ABG HCO3 26 H (21-25) mmol/L ABG Total CO2 27 H 25 H 26 H (19-24) mmol/L ABG O2 Saturation 99.3 H 100.0 H 100.0 H (94-97) % ABG Hematocrit 31 L 24 L 24 L (34.0-46.0) % ABG Sodium 134 L (135-146) mmol/L ABG Potassium 4.6 H 5.9 H 4.6 H (3.4-4.5) mmol/L ABG Ionized Calcium 4.2 L 4.4 L (4.5-5.3) mg/dL ABG Glucose 202 H 280 H 258 H (75-99) mg/dL ABG Lactic Acid 2.0 H 2.3 H* 2.5 H* (0.5-1.6) mmol/L Hemoglobin 10.1 L 7.8 L 7.7 L (11.4-16.0) gm/dL Glucose (74-99) mg/dL POC Glucose (mg/dL) (75-99) mg/dL Arterial Blood Potassium 4.6 H 5.9 H 4.6 H (3.4-4.5) mmol/L Arterial Blood Glucose 202 H 280 H 258 H (75-99) mg/dL Crossmatch 02/06/18 02/06/18 02/06/18 Range/Units 11:33 12:34 13:03 RBC (3.80-5.40) m/uL APTT (22.0-30.0) sec ABG pH (7.35-7.45) ABG pCO2 (35-45) mmHg ABG pO2 256 H 115 H 174 H (83-108) mmHg ABG HCO3 (21-25) mmol/L ABG Total CO2 26 H 26 H (19-24) mmol/L ABG O2 Saturation 100.0 H 98.9 H 99.8 H (94-97) % ABG Hematocrit 24 L 21 L 20 L* (34.0-46.0) % ABG Sodium (135-146) mmol/L ABG Potassium 4.6 H (3.4-4.5) mmol/L ABG Ionized Calcium 4.4 L 4.4 L (4.5-5.3) mg/dL ABG Glucose 233 H 167 H 144 H (75-99) mg/dL ABG Lactic Acid 2.7 H* 2.3 H* 2.1 H (0.5-1.6) mmol/L Hemoglobin 7.8 L 6.8 L* 6.7 L* (11.4-16.0) gm/dL Glucose (74-99) mg/dL POC Glucose (mg/dL) (75-99) mg/dL Arterial Blood Potassium 4.6 H (3.4-4.5) mmol/L Arterial Blood Glucose 233 H 167 H 144 H (75-99) mg/dL Crossmatch 02/06/18 02/06/18 02/06/18 Range/Units 13:43 14:06 14:35 RBC (3.80-5.40) m/uL APTT (22.0-30.0) sec ABG pH 7.31 L (7.35-7.45) ABG pCO2 49 H (35-45) mmHg ABG pO2 131 H (83-108) mmHg ABG HCO3 (21-25) mmol/L ABG Total CO2 26 H (19-24) mmol/L ABG O2 Saturation 99.3 H (94-97) % ABG Hematocrit (34.0-46.0) % ABG Sodium (135-146) mmol/L ABG Potassium (3.4-4.5) mmol/L ABG Ionized Calcium (4.5-5.3) mg/dL ABG Glucose (75-99) mg/dL ABG Lactic Acid (0.5-1.6) mmol/L Hemoglobin (11.4-16.0) gm/dL Glucose (74-99) mg/dL POC Glucose (mg/dL) 135 H 125 H (75-99) mg/dL Arterial Blood Potassium (3.4-4.5) mmol/L Arterial Blood Glucose (75-99) mg/dL Crossmatch Microbiology - Last 24 Hours (Table) 02/04/18 22:55 Urine Culture - Final Urine,Voided 02/04/18 13:07 Nasal Screen MRSA/MSSA - Final Nasal Swab Assessment and Plan Plan: Assessment: #1. Symptomatic coronary artery disease, with 80% left main stenosis, diffuse RCA disease at 70%, 75% circumflex lesion, 70% proximal LAD, and mid LAD up to 95%. That is post 2 vessel coronary artery bypass grafting, with ZELAYA to LAD, and SVG to the OM, postop day 0 #2. Routine postoperative ventilator management #3. Blood loss anemia, an expected outcome of surgery #4. Diabetes mellitus type 2 #5. Hypertension #6. Hyperlipidemia #7. Depression #8. History of right breast cancer, status post lumpectomy and radiation, in 2005. Most recent mammogram was reportedly within normal limits. #9. Remote smoking history, quit smoking at age of 21, smoked a pack a day for 6 years #10. Pulmonary hypertension Plan: Ventilator settings were switched to assist control mode of ventilation, and currently with a rate of 18, tidal vital 500, FiO2 of 80% and PEEP of 5. Continue weaning FiO2, postop chest x-ray was reviewed, shows some patchy retrocardiac atelectasis. Continue close hemodynamic monitoring, monitor chest tube output, urine output, hemodynamic parameters. Minimal blood in the chest tubes. Proceed with spontaneous breathing trial once the patient is awake, we' ll proceed with extubation if the patient continues to do well. Incentive spirometry after extubation I performed a history & physical examination of the patient and discussed their management with my nurse practitioner, Jaye Marina. I reviewed the nurse practitioner's note and agree with the documented findings and plan of care. Lung sounds are positive for scattered rhonchi. The findings and the impression was discussed with the patient. I attest to the documentation by the nurse practitioner. Time with Patient: Less than 30
--- NOTE | 2018-02-06 15:43 | OP ---
OPERATIVE REPORT DATE OF SURGERY: 02/06/2018. PREOPERATIVE DIAGNOSIS: Coronary artery disease. POSTOPERATIVE DIAGNOSE: Coronary artery disease. PROCEDURE: 1. Urgent coronary artery bypass graft x2 vessels (left internal mammary artery to left anterior descending, saphenous vein graft to obtuse marginal artery). 2. Endoscopic vein harvest right greater saphenous vein. 3. Epiaortic ultrasound. 4. Transesophageal echocardiogram. SURGEON: Morro Alvarado MD. [employer]ETING ANALYST: 1. ESTRELLA Jones. 2. ANISA Noel. ANESTHESIA: General anesthesia. SPECIMENS: None. COMPLICATIONS: None. INDICATIONS: The patient is a 72-year-old female with a past medical history significant for breast cancer status post lumpectomy and radiation therapy, diabetes mellitus, hyperlipidemia, hypertension, and a history of tobacco use who presented to her physician with complaints of intermittent chest pain. A stress test was performed and found to be abnormal. Cardiac catheterization was then performed which revealed multivessel coronary artery disease including an 80% lesion in the left main coronary artery. Coronary artery bypass was recommended. The risks, benefits, and alternatives of this procedure were discussed with the patient. All of her questions answered. Consent was obtained. FINDINGS: All coronary arteries were heavily calcified throughout their course. The LAD measured 1.3 mm. The obtuse marginal artery measured 1.0 mm. The PDA was too small for bypass. The left internal mammary artery was a small vessel but had brisk flow. Saphenous vein was a good conduit. DESCRIPTION OF PROCEDURE: The patient was taken to the operating room and placed supine on the operating table. After the induction of general anesthesia, she was prepped and draped in the usual sterile fashion. Preoperative transesophageal echocardiogram revealed an ejection fraction of about 50%. She had trace mitral regurgitation. She had mild aortic stenosis. Of note, the patient's preop echocardiogram revealed the gradient across the aortic valve to be 10 mmHg. A median sternotomy was performed. The left internal mammary artery was harvested in the standard fashion taking care to clip all branches. This vessel was small in diameter and significantly adhesed to the chest wall, which made dissection difficult. Intravenous heparin was administered. The vessel was transected distally revealing brisk flow. Simultaneously, greater saphenous vein was harvested from the right lower extremity in an endoscopic fashion. All branches were tied. The vein was a good conduit. A pericardial cradle was created. The ascending aorta was palpated. There was no significant calcific disease noted. Epiaortic ultrasound was then performed on the ascending aorta. There were areas of atheromatous disease and some calcium in the posterior portion of the aorta. An arterial cannula was placed in the distal ascending aorta in a soft spot confirmed by epiaortic ultrasound. A venous cannula was placed through the right atrial free wall and directed into the IVC. Both antegrade and retrograde catheters were placed as well. The patient was then placed on cardiopulmonary bypass with good decompression of the heart. The aortic cross- clamp was applied in an area free of calcium. Cold blood potassium cardioplegia was delivered in both antegrade and retrograde fashion to achieve arrest of the heart. Of note, cardioplegia was delivered every 15-20 minutes with the patient under crossclamp. We began by inspecting the inferior wall. The distal right coronary artery was palpated and was solid and heavily calcified. The PDA was also calcified and quite small in diameter. I could not find a soft spot amenable for bypass. Attention was then turned to the lateral wall. The proximal obtuse marginal artery was palpated and again was heavily calcified. I traced it distally. There was an area that was softer and had what appeared to be intermittent calcific plaque. An arteriotomy was created. This accepted a 1 mm probe distally. There was calcium noted posteriorly within this vessel. Using saphenous vein in a reverse fashion, an end-to-side anastomosis was created. This was performed using running 7-0 Prolene suture. The graft was hemostatic and had good flow. Next, the anterior wall was inspected. The LAD was palpated and was heavily calcified in its proximal to mid region. Distally, I did find a soft spot amenable for bypass. A small arteriotomy was created. This vessel accepted a 1 mm probe. Using the left internal mammary artery, an end-to-side anastomosis was created. This was performed using a running 8-0 Prolene suture. The graft was hemostatic. The mammary pedicle was tacked down to the anterior surface of the heart. Attention was then turned to the proximal anastomosis. This was performed in an end-to- side fashion using running 6-0 Prolene suture. Warm blood was delivered in antegrade fashion. Lidocaine and magnesium were administered as well. The aortic cross- clamp was removed. The vein graft was de-aired in the standard fashion. Distal anastomoses were inspected and appeared to be hemostatic. The retrograde catheter was removed. Temporary atrial and ventricular pacing wires were placed and brought through the skin. The patient was then weaned off cardiopulmonary bypass. She with assistance of low-dose Levophed. Followup transesophageal echocardiogram confirmed good left ventricular ejection fraction. There was no change in valvular pathology. Protamine was administered. There were no adverse reactions. Of note, the patient's blood pressure was somewhat labile during this period. The mediastinum was copiously irrigated with warm saline solution. All surgical sites were inspected and appeared to be hemostatic. Reinforcement sutures were placed as needed. Soft tissue was reapproximated over the ascending aorta as well as over the apex of the heart. Straight 32-[place] chest tubes were placed and directed into the mediastinum as well as into the left pleural space. These were secured to the skin using sutures. The sternum was then reapproximated using stainless steel wires in a [id number] fashion. At the completion of the closure, the sternum was well aligned. The wound was then closed in layers. A sterile dressing was applied. The patient appeared to tolerate the procedure well. There were no immediate complications. She returned to the ICU in critical but stable condition. MMODL / IJN: [id number] / MTDD
[2018-02-06 15:49] LABS: Glucose,Whole Blood 134 mg/dL (75-99)
[2018-02-06] MEDS ORDERED: IPRATROPIUM-ALBUTEROL 3 ML NEB INHALATION SCH (16:00)
[2018-02-06] MEDS ORDERED: PROPOFOL 1,000 MG in EMPTY BAG 1 BAG IV ONE (16:11)
[2018-02-06 16:32] LABS: Basophils % (A) 0 %; Eosinophils % (A) 0 %; HCT 25.9 % (34.0-46.0); HGB 8.8 gm/dL (11.4-16.0); Lymphocytes # (A) 0.9 k/uL (1.0-4.8); Lymphocytes % (A) 11 %; MCH 31.2 pg (25.0-35.0); MCHC 34.1 g/dL (31.0-37.0); MCV 91.6 fL (80.0-100.0); Mean Platelet Volume 8.6; Monocytes # (A) 0.5 k/uL (0-1.0); Monocytes % (A) 6 %; Neutrophils # (A) 6.5 k/uL (1.3-7.7); Neutrophils % (A) 81 %; RBC 2.83 m/uL (3.80-5.40); RDW 14.3 % (11.5-15.5)
[2018-02-06 16:37] LABS: Platelet Count 115 k/uL (150-450)
[2018-02-06] MEDS: HEPARIN SOD,PORK IN 0.45% NACL 25,000 UNIT in 0.45% NACL 1 500ML.BAG IV SCH (16:38)
[2018-02-06] MEDS: ceFAZolin IN SWFI 2 GM/20 ML SYRINGE IVP SCH (16:44)
[2018-02-06] MEDS: LACTATED RINGERS 1,000 ML IV SCH (16:45)
[2018-02-06 16:57] LABS: Glucose,Whole Blood 165 mg/dL (75-99)
[2018-02-06] MEDS: INSULIN REGULAR 100 UNIT in SODIUM CHLORIDE 0.9% 100 ML IV SCH (17:00)
[2018-02-06] MEDS: ACETAMINOPHEN IV (For NPO) 1,000 MG in EMPTY BAG 1 BAG IVPB SCH ×2 (18:02→23:34)
[2018-02-06 18:07] LABS: Glucose,Whole Blood 154 mg/dL (75-99)
[2018-02-06 18:44] LABS: ABG Base Excess -1.6 mmol/L; ABG HCO3 25 mmol/L (21-25); ABG PCO2 48 mmHg (35-45); ABG PH 7.31 (7.35-7.45); ABG PO2 79 mmHg (83-108); ABG TCO2 26 mmol/L (19-24)
[2018-02-06 19:07] LABS: Glucose,Whole Blood 145 mg/dL (75-99)
[2018-02-06 20:10] LABS: Glucose,Whole Blood 142 mg/dL (75-99)
[2018-02-06] MEDS: MUPIROCIN 2% OINT 22 GM TUBE NASAL SCH (20:16)
[2018-02-06 20:26] LABS: Basophils % (A) 0 %; Eosinophils % (A) 0 %; HCT 25.2 % (34.0-46.0); HGB 8.8 gm/dL (11.4-16.0); Lymphocytes # (A) 0.3 k/uL (1.0-4.8); Lymphocytes % (A) 5 %; MCH 32.2 pg (25.0-35.0); MCHC 34.8 g/dL (31.0-37.0); MCV 92.6 fL (80.0-100.0); Mean Platelet Volume 8.4; Monocytes # (A) 0.4 k/uL (0-1.0); Monocytes % (A) 6 %; Neutrophils # (A) 5.5 k/uL (1.3-7.7); Neutrophils % (A) 88 %; RBC 2.73 m/uL (3.80-5.40); RDW 14.3 % (11.5-15.5); WBC 6.3 k/uL (3.8-10.6)
[2018-02-06] MEDS: IPRATROPIUM-ALBUTEROL 3 ML NEB INHALATION SCH (20:27)
[2018-02-06 20:55] LABS: Hypochromasia (M) Present; Platelet Count 91 k/uL (150-450); Poikilocytosis (M) Present
[2018-02-06 21:04] LABS: Glucose,Whole Blood 145 mg/dL (75-99)
[2018-02-06 22:12] LABS: Glucose,Whole Blood 139 mg/dL (75-99)
[2018-02-06 23:20] LABS: Glucose,Whole Blood 128 mg/dL (75-99)
[2018-02-06] MEDS: HEPARIN SODIUM,PORCINE 5,000 UNIT/ML 1 ML VIAL SQ SCH (23:35)
[2018-02-06] MEDS: ALBUMIN HUMAN 5% 250 ML in EMPTY BAG 1 BAG IVPB PRN (23:45)
[2018-02-06 23:57] LABS: Glucose,Whole Blood 124 mg/dL (75-99)
[2018-02-07] MEDS: ceFAZolin IN SWFI 2 GM/20 ML SYRINGE IVP SCH ×2 (01:11→08:26)
[2018-02-07 01:14] LABS: Glucose,Whole Blood 124 mg/dL (75-99)
[2018-02-07 02:17] LABS: Glucose,Whole Blood 129 mg/dL (75-99)
[2018-02-07] MEDS: ALBUMIN HUMAN 5% 250 ML in EMPTY BAG 1 BAG IVPB PRN (02:21)
[2018-02-07 03:15] LABS: Glucose,Whole Blood 140 mg/dL (75-99)
[2018-02-07 04:04] LABS: Glucose,Whole Blood 145 mg/dL (75-99)
[2018-02-07] MEDS ORDERED: hydrALAZINE HCL 20 MG/ML 1 ML VIAL IM STA (04:14)
[2018-02-07 04:15] LABS: Basophils % (A) 0 %; Eosinophils % (A) 0 %; HCT 24.7 % (34.0-46.0); HGB 8.2 gm/dL (11.4-16.0); Lymphocytes # (A) 0.4 k/uL (1.0-4.8); Lymphocytes % (A) 7 %; MCH 30.4 pg (25.0-35.0); MCHC 33.1 g/dL (31.0-37.0); MCV 91.8 fL (80.0-100.0); Mean Platelet Volume 8.9; Monocytes # (A) 0.3 k/uL (0-1.0); Monocytes % (A) 6 %; Neutrophils # (A) 4.4 k/uL (1.3-7.7); Neutrophils % (A) 85 %; RBC 2.69 m/uL (3.80-5.40); RDW 14.5 % (11.5-15.5); WBC 5.2 k/uL (3.8-10.6)
[2018-02-07 04:17] LABS: Platelet Count 75 k/uL (150-450)
[2018-02-07 04:19] LABS: Ionized Calcium 4.7 mg/dL (4.5-5.3)
[2018-02-07 04:23] LABS: INR 1.2 (<1.2); Partial Thromboplastin Time 31.9 sec (22.0-30.0); Prothrombin Time 11.8 sec (9.0-12.0)
[2018-02-07 04:32] LABS: ALT 31 U/L (9-52); AST 36 U/L (14-36); Albumin 3.6 g/dL (3.5-5.0); Alkaline Phosphatase 25 U/L (38-126); Anion Gap 8 mmol/L; Blood Urea Nitrogen 12 mg/dL (7-17); Carbon Dioxide 24 mmol/L (22-30); Chloride 106 mmol/L (98-107); Glucose 129 mg/dL (74-99); Magnesium 1.7 mg/dL (1.6-2.3); Potassium 4.6 mmol/L (3.5-5.1); Sodium 138 mmol/L (137-145); Total Bilirubin 0.6 mg/dL (0.2-1.3); Total Protein 4.9 g/dL (6.3-8.2)
[2018-02-07] MEDS: MAGNESIUM SULFATE-D5W PMX 1 GM in DEXTROSE/WATER 1 100ML.BAG IVPB SCH ×2 (05:23→06:31)
[2018-02-07] MEDS ORDERED: hydrALAZINE HCL 20 MG/ML 1 ML VIAL ONE (05:27)
[2018-02-07] MEDS: ACETAMINOPHEN IV (For NPO) 1,000 MG in EMPTY BAG 1 BAG IVPB SCH ×3 (05:28→18:09)
[2018-02-07] MEDS ORDERED: hydrALAZINE HCL 20 MG/ML 1 ML VIAL IVP STA (05:29)
[2018-02-07] MEDS ORDERED: TRANEXAMIC ACID 2,000 MG in SODIUM CHLORIDE 0.9% 180 ML IV ONE (06:15)
[2018-02-07 06:21] LABS: Glucose,Whole Blood 149 mg/dL (75-99)
[2018-02-07 07:14] LABS: Glucose,Whole Blood 167 mg/dL (75-99)
[2018-02-07] MEDS: IPRATROPIUM-ALBUTEROL 3 ML NEB INHALATION SCH ×4 (07:48→20:17)
[2018-02-07] MEDS ORDERED: KETOROLAC 30 MG/ML 1 ML VIAL IVP PRN (08:00)
[2018-02-07 08:08] LABS: Glucose,Whole Blood 214 mg/dL (75-99)
[2018-02-07] MEDS: PANTOPRAZOLE 40 MG/10 ML VIAL IVP SCH (08:20)
[2018-02-07] MEDS: ASPIRIN 325 MG TAB PO SCH (08:21)
[2018-02-07] MEDS: MUPIROCIN 2% OINT 22 GM TUBE NASAL SCH ×2 (08:21→20:19)
--- NOTE | 2018-02-07 08:22 | XR ---
EXAMINATION TYPE: XR chest 1V portable DATE OF EXAM: 02/07/2018 COMPARISON: 02/06/2018 HISTORY: Postop cardiac surgery TECHNIQUE: Single frontal view of the chest is obtained. FINDINGS: Enteric tube and endotracheal tube have been removed in the interim. Median sternotomy wir es, mediastinal clips, left-sided thoracostomy tube, right internal jugular [place] catheter, and m ediastinal drains remain in place. New right basilar airspace disease has developed in the interim. C ardiac silhouette is overall stable. Osseous structures are grossly intact. IMPRESSION: New right basilar opacity post extubation. This may represent atelectasis although follo w-up is recommended.
--- NOTE | 2018-02-07 08:30 | P.PN ---
Subjective Progress Note Date: 02/07/18 Principal diagnosis: Multivessel coronary artery disease, status post two-vessel coronary artery bypass grafting postop day 1 Mrs. Acuña is a 72-year-old white female patient of Dr. Pranav Doe, who was brought in for cardiac catheterization today on 02/04/2018, following up positive stress test at [facility]. Patient has been having substernal chest pain, with bilateral arm heaviness, and ringing in her ears on and off since November. She states her symptoms would be brought after eating, and physical exertion like walking. Relieved with rest, and deep breathing. Lately her symptoms were also accompanied by sweating. Her PCP referred her to cardiology, she underwent exercise stress test on 02/03/2018, and she had chest pain, diaphoresis, significant infero-apical ST segment depression, and she was scheduled for cardiac catheterization today, which showed 70-80% left main lesion, 80% lesion in the circumflex, obtuse marginal that was mid and proximal LAD. The RCA was diffusely diseased, but was nondominant. There was a less than 10 mm gradient across the aortic valve. Lab work showed WBC of 4.2, hemoglobin of 11.7, electrolytes and renal profile were essentially normal, magnesium was 1.3, LFTs were normal. Past medical history is positive for hypertension, diabetes mellitus type 2, hyperlipidemia, depression, remote and brief smoking history, back surgery, breast cancer in 2005, status post lumpectomy and radiation. Most recent mammogram from December 2017 was normal. Echocardiogram showed mild to moderate aortic stenosis with mean gradient of 15 mmHg, mild pulmonary hypertension, concentric LVH and left atrial enlargement, ejection fraction of 55%. Patient was referred to cardiothoracic surgery and she was recommended surgical revascularization to which she agreed. Her surgery is scheduled for 02/06/[address] Alvarado. On 02/05/2018, the patient is calm and comfortable free of any chest resting in bed. No respiratory difficulties. Review the CAT scan of the chest and there is no acute abnormalities. The spirometry shows preserved FEV1 at 82%. She is hemodynamically stable. The patient is awaiting her cardiac surgery and bypass for tomorrow. No nausea. No vomiting. No altered mentation. No other complaints otherwise for now. On 02/06/2018 patient seen in follow-up in intensive care, she is status post two-vessel coronary artery bypass grafting, ZELAYA to LAD and SVG to the up to his marginal. She is sedated, on mechanical ventilation, on on SIMV mode of ventilation, with a rate of 12, 400 tidal volume, FiO2 of 100%, and PEEP of 5. Postop blood gases were reviewed, showed pO2 131, pCO2 of 48.5, and pH of 7.3. She was placed on assist-control mode of ventilation, with a rate of 18, tidal vital 500, FiO2 100% and PEEP of 5. Patient's O2 sat is 100%, and FiO2 was dropped to 80%. Venous IV drips is LR at a rate of 50 ML per hour, clevidipine at 1 mg per hour, nitroglycerin at 5 mics per minute, and Diprivan 25 mcg/kg/ min. she is hemodynamically stable, cardiac outputs and cardiac index are 5.9, and 3.3. PA pressures of 51/27, with a map of 39. CVP is 21. Patient is in sinus rhythm, AV wires are present, external pacemaker with backup rate of VVI 40 Bpm. Postop blood work shows a VC of 4.6, hemoglobin of 7.4, INR is 1.4, sodium is 140, potassium is 4.5, chloride is 110, renal profile is within normal limits. Postop chest x-ray has been reviewed by Dr. Harper, and shows stop changes with lines and tubes, and a new postoperative patchy retrocardiac atelectasis. Indwelling catheter is present, and patient is nonoliguric. 2 mediastinal and one left pleural chest tube are present, there is 40 mL of sanguinous output from the mediastinal, and 30 mL out of the left pleural chest tubes. On 02/07/2018 patient seen in follow-up in the intensive care unit, this is postop day 1, status post two-vessel coronary artery bypass grafting, ZELAYA to LAD and SVG to the obtuse marginal. Patient extubated yesterday at 1829, on 08/2017. Currently she is awake, alert, sitting up in the chair, currently on room air, on 2 L her pulse ox was 96%, denies any dyspnea, her pain is reasonably controlled, vital signs are stable, blood pressures 122/47, pO2 is 53 /24, cardiac output and index is 5.2 and 2.9. Current drips include lactated Ringer's at a rate of 50 ML per hour, nitroglycerin at 5 mics per minute, and insulin drip at 3.5 units per hour. Lung sounds are clear, diminished at the bases, no rhonchi, no rales noted. Patient is in sinus rhythm, with a rate of 85 bpm, AV wires are present, external pacemaker on backup rate. There has been 460 mL of serosanguineous output from the mediastinal chest tube, and about 450 out of the left pleural. No air leak noted. Surgeons are clean dry and intact. Today's chest x-ray has been reviewed. It shows new right basilar opacity post extubation this could represent atelectasis. Incentive spirometry effort is 750-1000 ML today. Patient received a unit of packed red blood cells yesterday in the postoperative period, and today's labs show hemoglobin of 8.2, platelet count of 75, electrolytes and renal profile are normal. Objective - Vital Signs Vital signs: Vital Signs Temp 98.4 F 02/07/18 04:00 Pulse 85 02/07/18 08:08 Resp 16 02/07/18 07:00 BP 90/46 02/07/18 07:00 Pulse Ox 96 02/07/18 07:56 Intake & Output 02/06/18 02/07/18 02/07/18 18:59 06:59 18:59 Intake Total 603.494 8851.623 85.126 Output Total 2254 985 65 Balance -8946.156 1370.623 20.126 Weight 77.6 kg Intake: IV 578 848 79 CO/CI 150 140 20 Lactated Ringers 1,000 ml 250 600 50 @ 50 mls/hr IV .Q20H [facility] Rx#:[id number] Pressure Bag 45 108 9 Intake, IV Titration 47.318 769.623 6.126 Amount ACETAMINOPHEN IV (For NPO 200 ) 1,000 mg In Empty Bag 1 bag @ 400 mls/hr IVPB Q6HR [facility] Rx#:[id number] Albumin Human 5% 250 ml 500 In Empty Bag 1 bag @ 250 mls/hr IVPB Q1HR PRN Rx#: [id number] Clevidipine Butyrate 25 44.000 50 mg In Empty Bag 1 bag @ 1 MG/HR 2 mls/hr IV .Q24H [facility] Rx#:[id number] Insulin Regular 100 unit 3.318 19.623 6.126 In Sodium Chloride 0.9% 100 ml @ Per Protocol IV .Q0M [facility] Rx#:[id number] Oral 475 Blood Product 310 Rc As-1 Unit 310 [id number] Output: Chest Tube Drainage 419 480 60 Left Pleural 104 260 30 Mediastinal 315 220 30 Urine 1035 505 5 Estimated Blood Loss 800 Other: Voiding Method Indwelling Catheter Indwelling Catheter ABP, PAP, CO, CI - Last Documented Arterial Blood Pressure 122/47 Pulmonary Artery Pressure 35/14 Cardiac Output 5.2 Cardiac Index 2.0 - Exam GENERAL EXAM: 72-year-old white female, awake, alert, oriented 3 HEAD: Normocephalic/atraumatic. EYES: Normal reaction of pupils, equal size. Conjunctiva pink, sclera white. NOSE: Clear with pink turbinates. THROAT: No erythema or exudates. NECK: No masses, no JVD, no thyroid enlargement, no adenopathy. CHEST: No chest wall deformity. Symmetrical expansion. Midsternal incision is clean dry and intact, covered with surgical dressing, 2 mediastinal and one left pleural chest tube are present, with serosanguinous output in the pleura- vac, AV wires to external pacemaker with a backup rate of 40 BPM LUNGS: Equal air entry, diminished breath sounds at the bases CVS: Regular rate and rhythm, normal S1 and S2, no gallops, no murmurs, no rubs ABDOMEN: Soft, nontender. No hepatosplenomegaly, normal bowel sounds, no guarding or rigidity. EXTREMITIES: No clubbing, no edema, no cyanosis, 2+ pulses and upper and left lower extremity. Right groin puncture is clean dry and intact, soft. Bilateral lower extremities, with Jose wraps, SCDs on MUSCULOSKELETAL: Muscle strength and tone normal. SPINE: No scoliosis or deformity SKIN: No rashes CENTRAL NERVOUS SYSTEM: No focal neurological deficits. PSYCHIATRIC: Intact judgment and insight - Labs CBC & Chem 7: 02/07/18 04:06 02/07/18 04:06 Labs: Abnormal Lab Results - Last 24 Hours (Table) 02/04/18 02/06/18 02/06/18 Range/Units 08:51 08:44 09:51 RBC (3.80-5.40) m/uL Hgb (11.4-16.0) gm/dL Hct (34.0-46.0) % Plt Count (150-450) k/uL Lymphocytes # (1.0-4.8) k/uL PT (9.0-12.0) sec INR (<1.2) APTT (22.0-30.0) sec ABG pH (7.35-7.45) ABG pCO2 (35-45) mmHg ABG pO2 319 H 132 H (83-108) mmHg ABG HCO3 26 H (21-25) mmol/L ABG Total CO2 25 H 27 H (19-24) mmol/L ABG O2 Saturation 100.0 H 99.3 H (94-97) % ABG Hematocrit 31 L 31 L (34.0-46.0) % ABG Sodium (135-146) mmol/L ABG Potassium 4.6 H (3.4-4.5) mmol/L ABG Ionized Calcium (4.5-5.3) mg/dL ABG Glucose 214 H 202 H (75-99) mg/dL ABG Lactic Acid 1.8 H 2.0 H (0.5-1.6) mmol/L Hemoglobin 9.9 L 10.1 L (11.4-16.0) gm/dL Chloride (98-107) mmol/L Glucose (74-99) mg/dL POC Glucose (mg/dL) (75-99) mg/dL Calcium (8.4-10.2) mg/dL Alkaline Phosphatase (38-126) U/L Total Protein (6.3-8.2) g/dL Albumin (3.5-5.0) g/dL Arterial Blood Potassium 4.6 H (3.4-4.5) mmol/L Arterial Blood Glucose 214 H 202 H (75-99) mg/dL Crossmatch See Detail 02/06/18 02/06/18 02/06/18 Range/Units 10:40 11:04 11:33 RBC (3.80-5.40) m/uL Hgb (11.4-16.0) gm/dL Hct (34.0-46.0) % Plt Count (150-450) k/uL Lymphocytes # (1.0-4.8) k/uL PT (9.0-12.0) sec INR (<1.2) APTT (22.0-30.0) sec ABG pH (7.35-7.45) ABG pCO2 (35-45) mmHg ABG pO2 375 H 296 H 256 H (83-108) mmHg ABG HCO3 (21-25) mmol/L ABG Total CO2 25 H 26 H 26 H (19-24) mmol/L ABG O2 Saturation 100.0 H 100.0 H 100.0 H (94-97) % ABG Hematocrit 24 L 24 L 24 L (34.0-46.0) % ABG Sodium 134 L (135-146) mmol/L ABG Potassium 5.9 H 4.6 H 4.6 H (3.4-4.5) mmol/L ABG Ionized Calcium 4.2 L 4.4 L 4.4 L (4.5-5.3) mg/dL ABG Glucose 280 H 258 H 233 H (75-99) mg/dL ABG Lactic Acid 2.3 H* 2.5 H* 2.7 H* (0.5-1.6) mmol/L Hemoglobin 7.8 L 7.7 L 7.8 L (11.4-16.0) gm/dL Chloride (98-107) mmol/L Glucose (74-99) mg/dL POC Glucose (mg/dL) (75-99) mg/dL Calcium (8.4-10.2) mg/dL Alkaline Phosphatase (38-126) U/L Total Protein (6.3-8.2) g/dL Albumin (3.5-5.0) g/dL Arterial Blood Potassium 5.9 H 4.6 H 4.6 H (3.4-4.5) mmol/L Arterial Blood Glucose 280 H 258 H 233 H (75-99) mg/dL Crossmatch 02/06/18 02/06/18 02/06/18 Range/Units 12:34 13:03 13:40 RBC 2.25 L (3.80-5.40) m/uL Hgb 7.4 L D (11.4-16.0) gm/dL Hct 21.2 L (34.0-46.0) % Plt Count 56 L D (150-450) k/uL Lymphocytes # 0.6 L (1.0-4.8) k/uL PT (9.0-12.0) sec INR (<1.2) APTT (22.0-30.0) sec ABG pH (7.35-7.45) ABG pCO2 (35-45) mmHg ABG pO2 115 H 174 H (83-108) mmHg ABG HCO3 (21-25) mmol/L ABG Total CO2 26 H (19-24) mmol/L ABG O2 Saturation 98.9 H 99.8 H (94-97) % ABG Hematocrit 21 L 20 L* (34.0-46.0) % ABG Sodium (135-146) mmol/L ABG Potassium (3.4-4.5) mmol/L ABG Ionized Calcium 4.4 L (4.5-5.3) mg/dL ABG Glucose 167 H 144 H (75-99) mg/dL ABG Lactic Acid 2.3 H* 2.1 H (0.5-1.6) mmol/L Hemoglobin 6.8 L* 6.7 L* (11.4-16.0) gm/dL Chloride (98-107) mmol/L Glucose (74-99) mg/dL POC Glucose (mg/dL) (75-99) mg/dL Calcium (8.4-10.2) mg/dL Alkaline Phosphatase (38-126) U/L Total Protein (6.3-8.2) g/dL Albumin (3.5-5.0) g/dL Arterial Blood Potassium (3.4-4.5) mmol/L Arterial Blood Glucose 167 H 144 H (75-99) mg/dL Crossmatch 02/06/18 02/06/18 02/06/18 Range/Units 13:40 13:40 13:43 RBC (3.80-5.40) m/uL Hgb (11.4-16.0) gm/dL Hct (34.0-46.0) % Plt Count (150-450) k/uL Lymphocytes # (1.0-4.8) k/uL PT 13.2 H (9.0-12.0) sec INR 1.4 H (<1.2) APTT 47.3 H (22.0-30.0) sec ABG pH (7.35-7.45) ABG pCO2 (35-45) mmHg ABG pO2 (83-108) mmHg ABG HCO3 (21-25) mmol/L ABG Total CO2 (19-24) mmol/L ABG O2 Saturation (94-97) % ABG Hematocrit (34.0-46.0) % ABG Sodium (135-146) mmol/L ABG Potassium (3.4-4.5) mmol/L ABG Ionized Calcium (4.5-5.3) mg/dL ABG Glucose (75-99) mg/dL ABG Lactic Acid (0.5-1.6) mmol/L Hemoglobin (11.4-16.0) gm/dL Chloride 110 H (98-107) mmol/L Glucose 121 H (74-99) mg/dL POC Glucose (mg/dL) 135 H (75-99) mg/dL Calcium 7.7 L (8.4-10.2) mg/dL Alkaline Phosphatase <20 L (38-126) U/L Total Protein 4.4 L (6.3-8.2) g/dL Albumin 3.2 L (3.5-5.0) g/dL Arterial Blood Potassium (3.4-4.5) mmol/L Arterial Blood Glucose (75-99) mg/dL Crossmatch 02/06/18 02/06/18 02/06/18 Range/Units 14:06 14:35 15:46 RBC (3.80-5.40) m/uL Hgb (11.4-16.0) gm/dL Hct (34.0-46.0) % Plt Count (150-450) k/uL Lymphocytes # (1.0-4.8) k/uL PT (9.0-12.0) sec INR (<1.2) APTT (22.0-30.0) sec ABG pH 7.31 L (7.35-7.45) ABG pCO2 49 H (35-45) mmHg ABG pO2 131 H (83-108) mmHg ABG HCO3 (21-25) mmol/L ABG Total CO2 26 H (19-24) mmol/L ABG O2 Saturation 99.3 H (94-97) % ABG Hematocrit (34.0-46.0) % ABG Sodium (135-146) mmol/L ABG Potassium (3.4-4.5) mmol/L ABG Ionized Calcium (4.5-5.3) mg/dL ABG Glucose (75-99) mg/dL ABG Lactic Acid (0.5-1.6) mmol/L Hemoglobin (11.4-16.0) gm/dL Chloride (98-107) mmol/L Glucose (74-99) mg/dL POC Glucose (mg/dL) 125 H 134 H (75-99) mg/dL Calcium (8.4-10.2) mg/dL Alkaline Phosphatase (38-126) U/L Total Protein (6.3-8.2) g/dL Albumin (3.5-5.0) g/dL Arterial Blood Potassium (3.4-4.5) mmol/L Arterial Blood Glucose (75-99) mg/dL Crossmatch 02/06/18 02/06/18 02/06/18 Range/Units 16:25 16:54 18:06 RBC 2.83 L (3.80-5.40) m/uL Hgb 8.8 L (11.4-16.0) gm/dL Hct 25.9 L (34.0-46.0) % Plt Count 115 L D (150-450) k/uL Lymphocytes # 0.9 L (1.0-4.8) k/uL PT (9.0-12.0) sec INR (<1.2) APTT (22.0-30.0) sec ABG pH (7.35-7.45) ABG pCO2 (35-45) mmHg ABG pO2 (83-108) mmHg ABG HCO3 (21-25) mmol/L ABG Total CO2 (19-24) mmol/L ABG O2 Saturation (94-97) % ABG Hematocrit (34.0-46.0) % ABG Sodium (135-146) mmol/L ABG Potassium (3.4-4.5) mmol/L ABG Ionized Calcium (4.5-5.3) mg/dL ABG Glucose (75-99) mg/dL ABG Lactic Acid (0.5-1.6) mmol/L Hemoglobin (11.4-16.0) gm/dL Chloride (98-107) mmol/L Glucose (74-99) mg/dL POC Glucose (mg/dL) 165 H 154 H (75-99) mg/dL Calcium (8.4-10.2) mg/dL Alkaline Phosphatase (38-126) U/L Total Protein (6.3-8.2) g/dL Albumin (3.5-5.0) g/dL Arterial Blood Potassium (3.4-4.5) mmol/L Arterial Blood Glucose (75-99) mg/dL Crossmatch 02/06/18 02/06/18 02/06/18 Range/Units 18:15 19:06 20:06 RBC (3.80-5.40) m/uL Hgb (11.4-16.0) gm/dL Hct (34.0-46.0) % Plt Count (150-450) k/uL Lymphocytes # (1.0-4.8) k/uL PT (9.0-12.0) sec INR (<1.2) APTT (22.0-30.0) sec ABG pH 7.31 L (7.35-7.45) ABG pCO2 48 H (35-45) mmHg ABG pO2 79 L (83-108) mmHg ABG HCO3 (21-25) mmol/L ABG Total CO2 26 H (19-24) mmol/L ABG O2 Saturation (94-97) % ABG Hematocrit (34.0-46.0) % ABG Sodium (135-146) mmol/L ABG Potassium (3.4-4.5) mmol/L ABG Ionized Calcium (4.5-5.3) mg/dL ABG Glucose (75-99) mg/dL ABG Lactic Acid (0.5-1.6) mmol/L Hemoglobin (11.4-16.0) gm/dL Chloride (98-107) mmol/L Glucose (74-99) mg/dL POC Glucose (mg/dL) 145 H 142 H (75-99) mg/dL Calcium (8.4-10.2) mg/dL Alkaline Phosphatase (38-126) U/L Total Protein (6.3-8.2) g/dL Albumin (3.5-5.0) g/dL Arterial Blood Potassium (3.4-4.5) mmol/L Arterial Blood Glucose (75-99) mg/dL Crossmatch 02/06/18 02/06/1818 Range/Units 20:08 21:03 22:08 RBC 2.73 L (3.80-5.40) m/uL Hgb 8.8 L (11.4-16.0) gm/dL Hct 25.2 L (34.0-46.0) % Plt Count 91 L (150-450) k/uL Lymphocytes # 0.3 L (1.0-4.8) k/uL PT (9.0-12.0) sec INR (<1.2) APTT (22.0-30.0) sec ABG pH (7.35-7.45) ABG pCO2 (35-45) mmHg ABG pO2 (83-108) mmHg ABG HCO3 (21-25) mmol/L ABG Total CO2 (19-24) mmol/L ABG O2 Saturation (94-97) % ABG Hematocrit (34.0-46.0) % ABG Sodium (135-146) mmol/L ABG Potassium (3.4-4.5) mmol/L ABG Ionized Calcium (4.5-5.3) mg/dL ABG Glucose (75-99) mg/dL ABG Lactic Acid (0.5-1.6) mmol/L Hemoglobin (11.4-16.0) gm/dL Chloride (98-107) mmol/L Glucose (74-99) mg/dL POC Glucose (mg/dL) 145 H 139 H (75-99) mg/dL Calcium (8.4-10.2) mg/dL Alkaline Phosphatase (38-126) U/L Total Protein (6.3-8.2) g/dL Albumin (3.5-5.0) g/dL Arterial Blood Potassium (3.4-4.5) mmol/L Arterial Blood Glucose (75-99) mg/dL Crossmatch 02/06/18 02/06/18 02/07/18 Range/Units 23:18 23:55 01:11 RBC (3.80-5.40) m/uL Hgb (11.4-16.0) gm/dL Hct (34.0-46.0) % Plt Count (150-450) k/uL Lymphocytes # (1.0-4.8) k/uL PT (9.0-12.0) sec INR (<1.2) APTT (22.0-30.0) sec ABG pH (7.35-7.45) ABG pCO2 (35-45) mmHg ABG pO2 (83-108) mmHg ABG HCO3 (21-25) mmol/L ABG Total CO2 (19-24) mmol/L ABG O2 Saturation (94-97) % ABG Hematocrit (34.0-46.0) % ABG Sodium (135-146) mmol/L ABG Potassium (3.4-4.5) mmol/L ABG Ionized Calcium (4.5-5.3) mg/dL ABG Glucose (75-99) mg/dL ABG Lactic Acid (0.5-1.6) mmol/L Hemoglobin (11.4-16.0) gm/dL Chloride (98-107) mmol/L Glucose (74-99) mg/dL POC Glucose (mg/dL) 128 H 124 H 124 H (75-99) mg/dL Calcium (8.4-10.2) mg/dL Alkaline Phosphatase (38-126) U/L Total Protein (6.3-8.2) g/dL Albumin (3.5-5.0) g/dL Arterial Blood Potassium (3.4-4.5) mmol/L Arterial Blood Glucose (75-99) mg/dL Crossmatch 02/07/18 02/07/18 02/07/18 Range/Units 02:15 03:14 04:01 RBC (3.80-5.40) m/uL Hgb (11.4-16.0) gm/dL Hct (34.0-46.0) % Plt Count (150-450) k/uL Lymphocytes # (1.0-4.8) k/uL PT (9.0-12.0) sec INR (<1.2) APTT (22.0-30.0) sec ABG pH (7.35-7.45) ABG pCO2 (35-45) mmHg ABG pO2 (83-108) mmHg ABG HCO3 (21-25) mmol/L ABG Total CO2 (19-24) mmol/L ABG O2 Saturation (94-97) % ABG Hematocrit (34.0-46.0) % ABG Sodium (135-146) mmol/L ABG Potassium (3.4-4.5) mmol/L ABG Ionized Calcium (4.5-5.3) mg/dL ABG Glucose (75-99) mg/dL ABG Lactic Acid (0.5-1.6) mmol/L Hemoglobin (11.4-16.0) gm/dL Chloride (98-107) mmol/L Glucose (74-99) mg/dL POC Glucose (mg/dL) 129 H 140 H 145 H (75-99) mg/dL Calcium (8.4-10.2) mg/dL Alkaline Phosphatase (38-126) U/L Total Protein (6.3-8.2) g/dL Albumin (3.5-5.0) g/dL Arterial Blood Potassium (3.4-4.5) mmol/L Arterial Blood Glucose (75-99) mg/dL Crossmatch 02/07/18 02/07/18 02/07/18 Range/Units 04:06 04:06 04:06 RBC 2.69 L (3.80-5.40) m/uL Hgb 8.2 L (11.4-16.0) gm/dL Hct 24.7 L (34.0-46.0) % Plt Count 75 L (150-450) k/uL Lymphocytes # 0.4 L (1.0-4.8) k/uL PT (9.0-12.0) sec INR 1.2 H (<1.2) APTT 31.9 H (22.0-30.0) sec ABG pH (7.35-7.45) ABG pCO2 (35-45) mmHg ABG pO2 (83-108) mmHg ABG HCO3 (21-25) mmol/L ABG Total CO2 (19-24) mmol/L ABG O2 Saturation (94-97) % ABG Hematocrit (34.0-46.0) % ABG Sodium (135-146) mmol/L ABG Potassium (3.4-4.5) mmol/L ABG Ionized Calcium (4.5-5.3) mg/dL ABG Glucose (75-99) mg/dL ABG Lactic Acid (0.5-1.6) mmol/L Hemoglobin (11.4-16.0) gm/dL Chloride (98-107) mmol/L Glucose 129 H (74-99) mg/dL POC Glucose (mg/dL) (75-99) mg/dL Calcium 8.0 L (8.4-10.2) mg/dL Alkaline Phosphatase 25 L (38-126) U/L Total Protein 4.9 L (6.3-8.2) g/dL Albumin (3.5-5.0) g/dL Arterial Blood Potassium (3.4-4.5) mmol/L Arterial Blood Glucose (75-99) mg/dL Crossmatch 02/07/18 02/07/18 02/07/18 Range/Units 06:20 07:07 08:07 RBC (3.80-5.40) m/uL Hgb (11.4-16.0) gm/dL Hct (34.0-46.0) % Plt Count (150-450) k/uL Lymphocytes # (1.0-4.8) k/uL PT (9.0-12.0) sec INR (<1.2) APTT (22.0-30.0) sec ABG pH (7.35-7.45) ABG pCO2 (35-45) mmHg ABG pO2 (83-108) mmHg ABG HCO3 (21-25) mmol/L ABG Total CO2 (19-24) mmol/L ABG O2 Saturation (94-97) % ABG Hematocrit (34.0-46.0) % ABG Sodium (135-146) mmol/L ABG Potassium (3.4-4.5) mmol/L ABG Ionized Calcium (4.5-5.3) mg/dL ABG Glucose (75-99) mg/dL ABG Lactic Acid (0.5-1.6) mmol/L Hemoglobin (11.4-16.0) gm/dL Chloride (98-107) mmol/L Glucose (74-99) mg/dL POC Glucose (mg/dL) 149 H 167 H 214 H (75-99) mg/dL Calcium (8.4-10.2) mg/dL Alkaline Phosphatase (38-126) U/L Total Protein (6.3-8.2) g/dL Albumin (3.5-5.0) g/dL Arterial Blood Potassium (3.4-4.5) mmol/L Arterial Blood Glucose (75-99) mg/dL Crossmatch Microbiology - Last 24 Hours (Table) 02/04/18 22:55 Urine Culture - Final Urine,Voided Assessment and Plan Plan: Assessment: #1. Symptomatic coronary artery disease, with 80% left main stenosis, diffuse RCA disease at 70%, 75% circumflex lesion, 70% proximal LAD, and mid LAD up to 95%. That is post 2 vessel coronary artery bypass grafting, with ZELAYA to LAD, and SVG to the OM, postop day 1 #2. Routine postoperative ventilator management #3. Blood loss anemia, an expected outcome of surgery #4. Diabetes mellitus type 2 #5. Hypertension #6. Hyperlipidemia #7. Depression #8. History of right breast cancer, status post lumpectomy and radiation, in 2005. Most recent mammogram was reportedly within normal limits. #9. Remote smoking history, quit smoking at age of 21, smoked a pack a day for 6 years #10. Pulmonary hypertension Plan: Continue encouraging incentive spirometry use, continue encouraging deep breathing and coughing, ambulation, continue close hemodynamic monitoring, patient is doing well, chest x-ray has been reviewed, shows right basilar atelectasis. Continue monitoring hemodynamic parameters, urine output, chest tube output. We'll follow I performed a history & physical examination of the patient and discussed their management with my nurse practitioner, Jaye Marina. I reviewed the nurse practitioner's note and agree with the documented findings and plan of care. Lung sounds are diminished at the bases. The findings and the impression was discussed with the patient. I attest to the documentation by the nurse practitioner. Time with Patient: Less than 30
[2018-02-07 08:53] LABS: Glucose,Whole Blood 290 mg/dL (75-99)
[2018-02-07] MEDS ORDERED: METOPROLOL TARTRATE 12.5 MG TAB PO SCH (09:00)
[2018-02-07] MEDS ORDERED: METOPROLOL TARTRATE 12.5 MG TAB PO STA (09:10)
[2018-02-07] MEDS ORDERED: FUROSEMIDE 10 MG/ML 2 ML VIAL IV ONE (09:11)
[2018-02-07] MEDS: HEPARIN SODIUM,PORCINE 5,000 UNIT/ML 1 ML VIAL SQ SCH ×3 (09:35→20:32)
[2018-02-07 09:47] LABS: Glucose,Whole Blood 251 mg/dL (75-99)
--- NOTE | 2018-02-07 09:48 | P.PN ---
Subjective Progress Note Date: 02/07/18 Principal diagnosis: chest pain Patient is a 72-year-old female with a complex medical history including diabetes mellitus type 2 with neuropathy managed on oral medications, hypertension, dyslipidemia, GERD, pulmonary hypertension, diastolic dysfunction , and depression who presented for an elective outpatient cardiac catheterization. Initially she had seen Dr. Leigh in the office and had a stress test performed. During her stress test she was noted to have EKG changes consistent with anterior apical and inferior lateral reversible defect. She developed her chest pain symptoms and received a nitroglycerin. She subsequently underwent cardiac catheterization on the morning of 02/04 which showed disease in the left main, RCA, circumflex, and LAD. She was subsequently placed on a heparin drip and admitted to the ICU. Dr. Alvarado from cardiothoracic surgery was consulted for regarding revascularization recommendations. Preoperative testing was started on 02/04/18. On the morning of 02/06 she underwent two-vessel bypass grafting with left internal mammary artery to the LAD and saphenous vein graft to the obtuse marginal. She was admitted to the ICU sedated on the ventilator. Intraoperatively she received 1 unit of packed red blood cells. She was extubated on 02/06 and had no acute events over night. Patient seen and examined at bedside in the ICU. She is having some postoperative pain. She denies any shortness of breath. She has not passed any gas or had a bowel movement yet. She denies any nausea or vomiting. She was concerned about the amount of sugar on her tray. She has no other complaints currently. Objective - Vital Signs Vital signs: Vital Signs Temp 98.4 F 02/07/18 04:00 Pulse 80 02/07/18 07:56 Resp 16 02/07/18 07:00 BP 90/46 02/07/18 07:00 Pulse Ox 96 02/07/18 07:56 Intake & Output 02/06/18 02/07/18 02/07/18 18:59 06:59 18:59 Intake Total 539.566 7775.623 81.184 Output Total 2254 985 65 Balance -4403.686 5769.623 16.184 Weight 77.6 kg Intake: IV 578 848 79 CO/CI 150 140 20 Lactated Ringers 1,000 ml 250 600 50 @ 50 mls/hr IV .Q20H [facility] Rx#:[id number] Pressure Bag 45 108 9 Intake, IV Titration 47.318 769.623 2.184 Amount ACETAMINOPHEN IV (For NPO 200 ) 1,000 mg In Empty Bag 1 bag @ 400 mls/hr IVPB Q6HR [facility] Rx#:[id number] Albumin Human 5% 250 ml 500 In Empty Bag 1 bag @ 250 mls/hr IVPB Q1HR PRN Rx#: [id number] Clevidipine Butyrate 25 44.000 50 mg In Empty Bag 1 bag @ 1 MG/HR 2 mls/hr IV .Q24H [facility] Rx#:[id number] Insulin Regular 100 unit 3.318 19.623 2.184 In Sodium Chloride 0.9% 100 ml @ Per Protocol IV .Q0M [facility] Rx#:[id number] Oral 475 Blood Product 310 Rc As-1 Unit 310 [id number] Output: Chest Tube Drainage 419 480 60 Left Pleural 104 260 30 Mediastinal 315 220 30 Urine 1035 505 5 Estimated Blood Loss 800 Other: Voiding Method Indwelling Catheter Indwelling Catheter ABP, PAP, CO, CI - Last Documented Arterial Blood Pressure 122/47 Pulmonary Artery Pressure 35/14 Cardiac Output 5.2 Cardiac Index 2.0 - Exam General: No distress, ill-appearing, appears at stated age Derm: warm, dry, bilateral Jose wraps to lower extremities Head: atraumatic, normocephalic, symmetric Eyes: EOMI, no lid lag, anicteric sclera Mouth: no lip lesion, mucus membranes moist Cardiovascular: S1S2 reg with murmur, mediastinal chest tube in place Lungs: Coarse breath sounds bilateral, no rhonchi, no rales , no accessory muscle use, chest tube in place Abdominal: soft, nontender to palpation, no guarding, no appreciable organomegaly Ext: no gross muscle atrophy, no edema, no contractures Neuro: CN II-XII grossly intact, No gross neuro deficits Psych: Awake, alert, appropriate affect - Labs CBC & Chem 7: 02/07/18 04:06 02/07/18 04:06 Labs: Abnormal Lab Results - Last 24 Hours (Table) 02/04/18 02/06/18 02/06/18 Range/Units 08:51 08:44 09:51 RBC (3.80-5.40) m/uL Hgb (11.4-16.0) gm/dL Hct (34.0-46.0) % Plt Count (150-450) k/uL Lymphocytes # (1.0-4.8) k/uL PT (9.0-12.0) sec INR (<1.2) APTT (22.0-30.0) sec ABG pH (7.35-7.45) ABG pCO2 (35-45) mmHg ABG pO2 319 H 132 H (83-108) mmHg ABG HCO3 26 H (21-25) mmol/L ABG Total CO2 25 H 27 H (19-24) mmol/L ABG O2 Saturation 100.0 H 99.3 H (94-97) % ABG Hematocrit 31 L 31 L (34.0-46.0) % ABG Sodium (135-146) mmol/L ABG Potassium 4.6 H (3.4-4.5) mmol/L ABG Ionized Calcium (4.5-5.3) mg/dL ABG Glucose 214 H 202 H (75-99) mg/dL ABG Lactic Acid 1.8 H 2.0 H (0.5-1.6) mmol/L Hemoglobin 9.9 L 10.1 L (11.4-16.0) gm/dL Chloride (98-107) mmol/L Glucose (74-99) mg/dL POC Glucose (mg/dL) (75-99) mg/dL Calcium (8.4-10.2) mg/dL Alkaline Phosphatase (38-126) U/L Total Protein (6.3-8.2) g/dL Albumin (3.5-5.0) g/dL Arterial Blood Potassium 4.6 H (3.4-4.5) mmol/L Arterial Blood Glucose 214 H 202 H (75-99) mg/dL Crossmatch See Detail 02/06/18 02/06/18 02/06/18 Range/Units 10:40 11:04 11:33 RBC (3.80-5.40) m/uL Hgb (11.4-16.0) gm/dL Hct (34.0-46.0) % Plt Count (150-450) k/uL Lymphocytes # (1.0-4.8) k/uL PT (9.0-12.0) sec INR (<1.2) APTT (22.0-30.0) sec ABG pH (7.35-7.45) ABG pCO2 (35-45) mmHg ABG pO2 375 H 296 H 256 H (83-108) mmHg ABG HCO3 (21-25) mmol/L ABG Total CO2 25 H 26 H 26 H (19-24) mmol/L ABG O2 Saturation 100.0 H 100.0 H 100.0 H (94-97) % ABG Hematocrit 24 L 24 L 24 L (34.0-46.0) % ABG Sodium 134 L (135-146) mmol/L ABG Potassium 5.9 H 4.6 H 4.6 H (3.4-4.5) mmol/L ABG Ionized Calcium 4.2 L 4.4 L 4.4 L (4.5-5.3) mg/dL ABG Glucose 280 H 258 H 233 H (75-99) mg/dL ABG Lactic Acid 2.3 H* 2.5 H* 2.7 H* (0.5-1.6) mmol/L Hemoglobin 7.8 L 7.7 L 7.8 L (11.4-16.0) gm/dL Chloride (98-107) mmol/L Glucose (74-99) mg/dL POC Glucose (mg/dL) (75-99) mg/dL Calcium (8.4-10.2) mg/dL Alkaline Phosphatase (38-126) U/L Total Protein (6.3-8.2) g/dL Albumin (3.5-5.0) g/dL Arterial Blood Potassium 5.9 H 4.6 H 4.6 H (3.4-4.5) mmol/L Arterial Blood Glucose 280 H 258 H 233 H (75-99) mg/dL Crossmatch 02/06/18 02/06/18 02/06/18 Range/Units 12:34 13:03 13:40 RBC 2.25 L (3.80-5.40) m/uL Hgb 7.4 L D (11.4-16.0) gm/dL Hct 21.2 L (34.0-46.0) % Plt Count 56 L D (150-450) k/uL Lymphocytes # 0.6 L (1.0-4.8) k/uL PT (9.0-12.0) sec INR (<1.2) APTT (22.0-30.0) sec ABG pH (7.35-7.45) ABG pCO2 (35-45) mmHg ABG pO2 115 H 174 H (83-108) mmHg ABG HCO3 (21-25) mmol/L ABG Total CO2 26 H (19-24) mmol/L ABG O2 Saturation 98.9 H 99.8 H (94-97) % ABG Hematocrit 21 L 20 L* (34.0-46.0) % ABG Sodium (135-146) mmol/L ABG Potassium (3.4-4.5) mmol/L ABG Ionized Calcium 4.4 L (4.5-5.3) mg/dL ABG Glucose 167 H 144 H (75-99) mg/dL ABG Lactic Acid 2.3 H* 2.1 H (0.5-1.6) mmol/L Hemoglobin 6.8 L* 6.7 L* (11.4-16.0) gm/dL Chloride (98-107) mmol/L Glucose (74-99) mg/dL POC Glucose (mg/dL) (75-99) mg/dL Calcium (8.4-10.2) mg/dL Alkaline Phosphatase (38-126) U/L Total Protein (6.3-8.2) g/dL Albumin (3.5-5.0) g/dL Arterial Blood Potassium (3.4-4.5) mmol/L Arterial Blood Glucose 167 H 144 H (75-99) mg/dL Crossmatch 02/06/18 02/06/18 02/06/18 Range/Units 13:40 13:40 13:43 RBC (3.80-5.40) m/uL Hgb (11.4-16.0) gm/dL Hct (34.0-46.0) % Plt Count (150-450) k/uL Lymphocytes # (1.0-4.8) k/uL PT 13.2 H (9.0-12.0) sec INR 1.4 H (<1.2) APTT 47.3 H (22.0-30.0) sec ABG pH (7.35-7.45) ABG pCO2 (35-45) mmHg ABG pO2 (83-108) mmHg ABG HCO3 (21-25) mmol/L ABG Total CO2 (19-24) mmol/L ABG O2 Saturation (94-97) % ABG Hematocrit (34.0-46.0) % ABG Sodium (135-146) mmol/L ABG Potassium (3.4-4.5) mmol/L ABG Ionized Calcium (4.5-5.3) mg/dL ABG Glucose (75-99) mg/dL ABG Lactic Acid (0.5-1.6) mmol/L Hemoglobin (11.4-16.0) gm/dL Chloride 110 H (98-107) mmol/L Glucose 121 H (74-99) mg/dL POC Glucose (mg/dL) 135 H (75-99) mg/dL Calcium 7.7 L (8.4-10.2) mg/dL Alkaline Phosphatase <20 L (38-126) U/L Total Protein 4.4 L (6.3-8.2) g/dL Albumin 3.2 L (3.5-5.0) g/dL Arterial Blood Potassium (3.4-4.5) mmol/L Arterial Blood Glucose (75-99) mg/dL Crossmatch 02/06/18 02/06/18 02/06/18 Range/Units 14:06 14:35 15:46 RBC (3.80-5.40) m/uL Hgb (11.4-16.0) gm/dL Hct (34.0-46.0) % Plt Count (150-450) k/uL Lymphocytes # (1.0-4.8) k/uL PT (9.0-12.0) sec INR (<1.2) APTT (22.0-30.0) sec ABG pH 7.31 L (7.35-7.45) ABG pCO2 49 H (35-45) mmHg ABG pO2 131 H (83-108) mmHg ABG HCO3 (21-25) mmol/L ABG Total CO2 26 H (19-24) mmol/L ABG O2 Saturation 99.3 H (94-97) % ABG Hematocrit (34.0-46.0) % ABG Sodium (135-146) mmol/L ABG Potassium (3.4-4.5) mmol/L ABG Ionized Calcium (4.5-5.3) mg/dL ABG Glucose (75-99) mg/dL ABG Lactic Acid (0.5-1.6) mmol/L Hemoglobin (11.4-16.0) gm/dL Chloride (98-107) mmol/L Glucose (74-99) mg/dL POC Glucose (mg/dL) 125 H 134 H (75-99) mg/dL Calcium (8.4-10.2) mg/dL Alkaline Phosphatase (38-126) U/L Total Protein (6.3-8.2) g/dL Albumin (3.5-5.0) g/dL Arterial Blood Potassium (3.4-4.5) mmol/L Arterial Blood Glucose (75-99) mg/dL Crossmatch 02/06/18 02/06/18 02/06/18 Range/Units 16:25 16:54 18:06 RBC 2.83 L (3.80-5.40) m/uL Hgb 8.8 L (11.4-16.0) gm/dL Hct 25.9 L (34.0-46.0) % Plt Count 115 L D (150-450) k/uL Lymphocytes # 0.9 L (1.0-4.8) k/uL PT (9.0-12.0) sec INR (<1.2) APTT (22.0-30.0) sec ABG pH (7.35-7.45) ABG pCO2 (35-45) mmHg ABG pO2 (83-108) mmHg ABG HCO3 (21-25) mmol/L ABG Total CO2 (19-24) mmol/L ABG O2 Saturation (94-97) % ABG Hematocrit (34.0-46.0) % ABG Sodium (135-146) mmol/L ABG Potassium (3.4-4.5) mmol/L ABG Ionized Calcium (4.5-5.3) mg/dL ABG Glucose (75-99) mg/dL ABG Lactic Acid (0.5-1.6) mmol/L Hemoglobin (11.4-16.0) gm/dL Chloride (98-107) mmol/L Glucose (74-99) mg/dL POC Glucose (mg/dL) 165 H 154 H (75-99) mg/dL Calcium (8.4-10.2) mg/dL Alkaline Phosphatase (38-126) U/L Total Protein (6.3-8.2) g/dL Albumin (3.5-5.0) g/dL Arterial Blood Potassium (3.4-4.5) mmol/L Arterial Blood Glucose (75-99) mg/dL Crossmatch 02/06/18 02/06/18 02/06/18 Range/Units 18:15 19:06 20:06 RBC (3.80-5.40) m/uL Hgb (11.4-16.0) gm/dL Hct (34.0-46.0) % Plt Count (150-450) k/uL Lymphocytes # (1.0-4.8) k/uL PT (9.0-12.0) sec INR (<1.2) APTT (22.0-30.0) sec ABG pH 7.31 L (7.35-7.45) ABG pCO2 48 H (35-45) mmHg ABG pO2 79 L (83-108) mmHg ABG HCO3 (21-25) mmol/L ABG Total CO2 26 H (19-24) mmol/L ABG O2 Saturation (94-97) % ABG Hematocrit (34.0-46.0) % ABG Sodium (135-146) mmol/L ABG Potassium (3.4-4.5) mmol/L ABG Ionized Calcium (4.5-5.3) mg/dL ABG Glucose (75-99) mg/dL ABG Lactic Acid (0.5-1.6) mmol/L Hemoglobin (11.4-16.0) gm/dL Chloride (98-107) mmol/L Glucose (74-99) mg/dL POC Glucose (mg/dL) 145 H 142 H (75-99) mg/dL Calcium (8.4-10.2) mg/dL Alkaline Phosphatase (38-126) U/L Total Protein (6.3-8.2) g/dL Albumin (3.5-5.0) g/dL Arterial Blood Potassium (3.4-4.5) mmol/L Arterial Blood Glucose (75-99) mg/dL Crossmatch 02/06/18 02/06/18 02/06/18 Range/Units 20:08 21:03 22:08 RBC 2.73 L (3.80-5.40) m/uL Hgb 8.8 L (11.4-16.0) gm/dL Hct 25.2 L (34.0-46.0) % Plt Count 91 L (150-450) k/uL Lymphocytes # 0.3 L (1.0-4.8) k/uL PT (9.0-12.0) sec INR (<1.2) APTT (22.0-30.0) sec ABG pH (7.35-7.45) ABG pCO2 (35-45) mmHg ABG pO2 (83-108) mmHg ABG HCO3 (21-25) mmol/L ABG Total CO2 (19-24) mmol/L ABG O2 Saturation (94-97) % ABG Hematocrit (34.0-46.0) % ABG Sodium (135-146) mmol/L ABG Potassium (3.4-4.5) mmol/L ABG Ionized Calcium (4.5-5.3) mg/dL ABG Glucose (75-99) mg/dL ABG Lactic Acid (0.5-1.6) mmol/L Hemoglobin (11.4-16.0) gm/dL Chloride (98-107) mmol/L Glucose (74-99) mg/dL POC Glucose (mg/dL) 145 H 139 H (75-99) mg/dL Calcium (8.4-10.2) mg/dL Alkaline Phosphatase (38-126) U/L Total Protein (6.3-8.2) g/dL Albumin (3.5-5.0) g/dL Arterial Blood Potassium (3.4-4.5) mmol/L Arterial Blood Glucose (75-99) mg/dL Crossmatch 02/06/18 02/06/18 02/07/18 Range/Units 23:18 23:55 01:11 RBC (3.80-5.40) m/uL Hgb (11.4-16.0) gm/dL Hct (34.0-46.0) % Plt Count (150-450) k/uL Lymphocytes # (1.0-4.8) k/uL PT (9.0-12.0) sec INR (<1.2) APTT (22.0-30.0) sec ABG pH (7.35-7.45) ABG pCO2 (35-45) mmHg ABG pO2 (83-108) mmHg ABG HCO3 (21-25) mmol/L ABG Total CO2 (19-24) mmol/L ABG O2 Saturation (94-97) % ABG Hematocrit (34.0-46.0) % ABG Sodium (135-146) mmol/L ABG Potassium (3.4-4.5) mmol/L ABG Ionized Calcium (4.5-5.3) mg/dL ABG Glucose (75-99) mg/dL ABG Lactic Acid (0.5-1.6) mmol/L Hemoglobin (11.4-16.0) gm/dL Chloride (98-107) mmol/L Glucose (74-99) mg/dL POC Glucose (mg/dL) 128 H 124 H 124 H (75-99) mg/dL Calcium (8.4-10.2) mg/dL Alkaline Phosphatase (38-126) U/L Total Protein (6.3-8.2) g/dL Albumin (3.5-5.0) g/dL Arterial Blood Potassium (3.4-4.5) mmol/L Arterial Blood Glucose (75-99) mg/dL Crossmatch 02/07/18 02/07/18 02/07/18 Range/Units 02:15 03:14 04:01 RBC (3.80-5.40) m/uL Hgb (11.4-16.0) gm/dL Hct (34.0-46.0) % Plt Count (150-450) k/uL Lymphocytes # (1.0-4.8) k/uL PT (9.0-12.0) sec INR (<1.2) APTT (22.0-30.0) sec ABG pH (7.35-7.45) ABG pCO2 (35-45) mmHg ABG pO2 (83-108) mmHg ABG HCO3 (21-25) mmol/L ABG Total CO2 (19-24) mmol/L ABG O2 Saturation (94-97) % ABG Hematocrit (34.0-46.0) % ABG Sodium (135-146) mmol/L ABG Potassium (3.4-4.5) mmol/L ABG Ionized Calcium (4.5-5.3) mg/dL ABG Glucose (75-99) mg/dL ABG Lactic Acid (0.5-1.6) mmol/L Hemoglobin (11.4-16.0) gm/dL Chloride (98-107) mmol/L Glucose (74-99) mg/dL POC Glucose (mg/dL) 129 H 140 H 145 H (75-99) mg/dL Calcium (8.4-10.2) mg/dL Alkaline Phosphatase (38-126) U/L Total Protein (6.3-8.2) g/dL Albumin (3.5-5.0) g/dL Arterial Blood Potassium (3.4-4.5) mmol/L Arterial Blood Glucose (75-99) mg/dL Crossmatch 02/07/18 02/07/18 02/07/18 Range/Units 04:06 04:06 04:06 RBC 2.69 L (3.80-5.40) m/uL Hgb 8.2 L (11.4-16.0) gm/dL Hct 24.7 L (34.0-46.0) % Plt Count 75 L (150-450) k/uL Lymphocytes # 0.4 L (1.0-4.8) k/uL PT (9.0-12.0) sec INR 1.2 H (<1.2) APTT 31.9 H (22.0-30.0) sec ABG pH (7.35-7.45) ABG pCO2 (35-45) mmHg ABG pO2 (83-108) mmHg ABG HCO3 (21-25) mmol/L ABG Total CO2 (19-24) mmol/L ABG O2 Saturation (94-97) % ABG Hematocrit (34.0-46.0) % ABG Sodium (135-146) mmol/L ABG Potassium (3.4-4.5) mmol/L ABG Ionized Calcium (4.5-5.3) mg/dL ABG Glucose (75-99) mg/dL ABG Lactic Acid (0.5-1.6) mmol/L Hemoglobin (11.4-16.0) gm/dL Chloride (98-107) mmol/L Glucose 129 H (74-99) mg/dL POC Glucose (mg/dL) (75-99) mg/dL Calcium 8.0 L (8.4-10.2) mg/dL Alkaline Phosphatase 25 L (38-126) U/L Total Protein 4.9 L (6.3-8.2) g/dL Albumin (3.5-5.0) g/dL Arterial Blood Potassium (3.4-4.5) mmol/L Arterial Blood Glucose (75-99) mg/dL Crossmatch 02/07/18 02/07/18 Range/Units 06:20 07:07 RBC (3.80-5.40) m/uL Hgb (11.4-16.0) gm/dL Hct (34.0-46.0) % Plt Count (150-450) k/uL Lymphocytes # (1.0-4.8) k/uL PT (9.0-12.0) sec INR (<1.2) APTT (22.0-30.0) sec ABG pH (7.35-7.45) ABG pCO2 (35-45) mmHg ABG pO2 (83-108) mmHg ABG HCO3 (21-25) mmol/L ABG Total CO2 (19-24) mmol/L ABG O2 Saturation (94-97) % ABG Hematocrit (34.0-46.0) % ABG Sodium (135-146) mmol/L ABG Potassium (3.4-4.5) mmol/L ABG Ionized Calcium (4.5-5.3) mg/dL ABG Glucose (75-99) mg/dL ABG Lactic Acid (0.5-1.6) mmol/L Hemoglobin (11.4-16.0) gm/dL Chloride (98-107) mmol/L Glucose (74-99) mg/dL POC Glucose (mg/dL) 149 H 167 H (75-99) mg/dL Calcium (8.4-10.2) mg/dL Alkaline Phosphatase (38-126) U/L Total Protein (6.3-8.2) g/dL Albumin (3.5-5.0) g/dL Arterial Blood Potassium (3.4-4.5) mmol/L Arterial Blood Glucose (75-99) mg/dL Crossmatch Microbiology - Last 24 Hours (Table) 02/04/18 22:55 Urine Culture - Final Urine,Voided Assessment and Plan Assessment: 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 Alvarado's service -Currently with chest tube, mediastinal tube, and external pacemaker wires in place Anemia secondary to acute blood loss as an expectorant and anticipated outcome of surgical procedure -Received 1 unit packed red blood cells in the OR -Follow CBC Thrombocytopenia, -Likely consumptive and reactive with surgery -Follow CBC -2 units of platelets on order Diabetes mellitus Type II - Continue off metformin and Amaryl - follow BS, on post operative insulin drip, likely to SC tomorrow. -A1c 7.9. HTN - follow BP -Home atenolol, lisinopril and norvasc on hold postoperatively HLD - statin GERD -protonix Depression -effexor DVT prophylaxis: Heparin
[2018-02-07 09:51] LABS: Glucose,Whole Blood 239 mg/dL (75-99)
[2018-02-07 11:06] LABS: Glucose,Whole Blood 176 mg/dL (75-99)
[2018-02-07 11:42] VITALS: BMI 29.3
[2018-02-07 12:03] LABS: Glucose,Whole Blood 134 mg/dL (75-99)
[2018-02-07] MEDS ORDERED: MAGNESIUM HYDROXIDE 2,400 MG/10 ML CUP PO PRN (12:53)
[2018-02-07] MEDS ORDERED: BISACODYL 10 MG SUPP RECTAL PRN (12:53)
[2018-02-07 13:20] LABS: Glucose,Whole Blood 121 mg/dL (75-99)
[2018-02-07] MEDS: HYDROcodone/APAP 5-325MG 1 EACH TAB PO PRN ×3 (13:47→21:56)
[2018-02-07 14:24] LABS: Glucose,Whole Blood 203 mg/dL (75-99)
[2018-02-07 15:22] LABS: Glucose,Whole Blood 157 mg/dL (75-99)
[2018-02-07 16:25] LABS: Glucose,Whole Blood 135 mg/dL (75-99)
--- NOTE | 2018-02-07 16:49 | P.PN ---
Subjective Progress Note Date: 02/07/18 Principal diagnosis: Triple-vessel coronary artery disease with left main disease. Mild to moderate aortic stenosis, grade 3 diastolic dysfunction, mild mitral regurgitation, mild tricuspid regurgitation. Mild thrombocytopenia. Previous medical history of hypertension, diabetes mellitus, hyperlipidemia, pulmonary hypertension, depression, previous tobacco dependence with preoperative FEV1 82% of predicted , back surgery, and breast cancer with lumpectomy and radiation in 2006. POD #1 urgent coronary artery bypass graft 2 vessels, left internal mammary artery to left anterior descending coronary artery, reverse saphenous vein graft to obtuse marginal artery. Endoscopic vein harvest right greater saphenous vein. Epi-aortic ultrasound, intraoperative transesophageal echocardiogram. Postoperative normocytic, normochromic anemia, an expected outcome of surgery. Postoperative thrombocytopenia, expected outcome of surgery. Patient's currently sitting up in chair in no acute distress. States pain is controlled with current medication regimen. states her throat does feel like there is something stuck in it when she is laying flat but is not present when she sitting up. She was successfully extubated last night at 18:29. Objective - Vital Signs Vital signs: Vital Signs Temp 98.4 F 02/07/18 04:00 Pulse 75 02/07/18 11:43 Resp 27 H 02/07/18 11:30 BP 95/46 02/07/18 11:30 Pulse Ox 93 L 02/07/18 11:30 Intake & Output 02/06/18 02/07/18 02/07/18 18:59 06:59 18:59 Intake Total 607.688 6945.623 1102.106 Output Total 2254 985 937 Balance -4700.825 7874.623 165.106 Weight 77.6 kg 77.6 kg Intake: IV 578 848 449 CO/CI 150 140 20 Lactated Ringers 1,000 ml 250 600 360 @ 20 mls/hr IV .Q24H [facility] Rx#:[id number] Pressure Bag 45 108 69 Intake, IV Titration 47.318 769.623 53.106 Amount ACETAMINOPHEN IV (For NPO 200 ) 1,000 mg In Empty Bag 1 bag @ 400 mls/hr IVPB Q6HR [facility] Rx#:[id number] Albumin Human 5% 250 ml 500 In Empty Bag 1 bag @ 250 mls/hr IVPB Q1HR PRN Rx#: [id number] Clevidipine Butyrate 25 44.000 50 mg In Empty Bag 1 bag @ 1 MG/HR 2 mls/hr IV .Q24H [facility] Rx#:[id number] Insulin Regular 100 unit 3.318 19.623 53.106 In Sodium Chloride 0.9% 100 ml @ Per Protocol IV .Q0M [facility] Rx#:[id number] Oral 475 600 Blood Product 310 Rc As-1 Unit 310 [id number] Output: Chest Tube Drainage 419 480 530 Left Pleural 104 260 180 Mediastinal 315 220 350 Urine 1035 505 407 Estimated Blood Loss 800 Other: Voiding Method Indwelling Catheter Indwelling Catheter Indwelling Catheter ABP, PAP, CO, CI - Last Documented Arterial Blood Pressure 133/54 Pulmonary Artery Pressure 92/63 Cardiac Output 5.2 Cardiac Index 2.0 - Constitutional General appearance: Present: cooperative, no acute distress - Respiratory Details: Lungs sounds diminished bilaterally. Respirations even, nonlabored. Currently on room air with oxygen saturation 93%. Able to achieve 1000 mL on her incentive spirometry. Effective cough. Mediastinal chest tube to continuous wall suction, 180 mL serosanguineous drainage overnight, 450 mL since surgery. Left pleural chest tube to continuous wall suction, 250 mL serosanguineous drainage overnight, 450 mL since surgery. No air leaks present. - Cardiovascular Details: S1, S2 present. Regular rate and rhythm, sinus rhythm on telemetry. Sternum stable. A/V epicardial pacemaker wires present, grounded. Palpable peripheral pulses bilaterally. No edema present. No calf pain or tenderness noted. Right internal jugular Saint Joe/Cordis, right radial arterial line present this morning. Last CO/CI 5.2/2.9 on no inotropes. Heart hugger in place with patient demonstrating appropriate use. Antiembolism stockings, SCDs present. - Gastrointestinal Gastrointestinal Comment(s): abdomen soft, nontender, nondistended. Hypoactive bowel sounds present 4 quadrants. Tolerating clear liquids. No flatus yet. - Genitourinary Genitourinary Comment(s): Harp present draining clear, yellow urine. Urine output anywhere from 5 mL to 75 mL, mostly in the 15-25 mL per hour range overnight. After Lasix given today urine output picked up to 30-45 mL per hour with approximate 200 mL output in the immediate 2 hours post-Lasix. - Integumentary Integumentary Comment(s): Skin is warm and dry with evidence of good perfusion. Anterior chest incision well approximated and covered with dry intact dressing. Right lower extremity EVH site well approximated. - Neurologic Neurologic: Present: CNII-XII intact - Musculoskeletal Musculoskeletal: Present: strength equal bilaterally - Psychiatric Psychiatric: Present: A&O x's 3, appropriate affect, intact judgment & insight - Allied health notes Allied health notes reviewed: nursing - Labs CBC & Chem 7: 02/07/18 04:06 02/07/18 04:06 Labs: Abnormal Lab Results - Last 24 Hours (Table) 02/04/18 02/06/18 02/06/18 Range/Units 08:51 16:25 16:54 RBC 2.83 L (3.80-5.40) m/uL Hgb 8.8 L (11.4-16.0) gm/dL Hct 25.9 L (34.0-46.0) % Plt Count 115 L D (150-450) k/uL Lymphocytes # 0.9 L (1.0-4.8) k/uL INR (<1.2) APTT (22.0-30.0) sec ABG pH (7.35-7.45) ABG pCO2 (35-45) mmHg ABG pO2 (83-108) mmHg ABG Total CO2 (19-24) mmol/L Glucose (74-99) mg/dL POC Glucose (mg/dL) 165 H (75-99) mg/dL Calcium (8.4-10.2) mg/dL Alkaline Phosphatase (38-126) U/L Total Protein (6.3-8.2) g/dL Crossmatch See Detail 02/06/18 02/06/18 02/06/18 Range/Units 18:06 18:15 19:06 RBC (3.80-5.40) m/uL Hgb (11.4-16.0) gm/dL Hct (34.0-46.0) % Plt Count (150-450) k/uL Lymphocytes # (1.0-4.8) k/uL INR (<1.2) APTT (22.0-30.0) sec ABG pH 7.31 L (7.35-7.45) ABG pCO2 48 H (35-45) mmHg ABG pO2 79 L (83-108) mmHg ABG Total CO2 26 H (19-24) mmol/L Glucose (74-99) mg/dL POC Glucose (mg/dL) 154 H 145 H (75-99) mg/dL Calcium (8.4-10.2) mg/dL Alkaline Phosphatase (38-126) U/L Total Protein (6.3-8.2) g/dL Crossmatch 02/06/18 02/06/18 02/06/18 Range/Units 20:06 20:08 21:03 RBC 2.73 L (3.80-5.40) m/uL Hgb 8.8 L (11.4-16.0) gm/dL Hct 25.2 L (34.0-46.0) % Plt Count 91 L (150-450) k/uL Lymphocytes # 0.3 L (1.0-4.8) k/uL INR (<1.2) APTT (22.0-30.0) sec ABG pH (7.35-7.45) ABG pCO2 (35-45) mmHg ABG pO2 (83-108) mmHg ABG Total CO2 (19-24) mmol/L Glucose (74-99) mg/dL POC Glucose (mg/dL) 142 H 145 H (75-99) mg/dL Calcium (8.4-10.2) mg/dL Alkaline Phosphatase (38-126) U/L Total Protein (6.3-8.2) g/dL Crossmatch 02/06/18 02/06/18 02/06/18 Range/Units 22:08 23:18 23:55 RBC (3.80-5.40) m/uL Hgb (11.4-16.0) gm/dL Hct (34.0-46.0) % Plt Count (150-450) k/uL Lymphocytes # (1.0-4.8) k/uL INR (<1.2) APTT (22.0-30.0) sec ABG pH (7.35-7.45) ABG pCO2 (35-45) mmHg ABG pO2 (83-108) mmHg ABG Total CO2 (19-24) mmol/L Glucose (74-99) mg/dL POC Glucose (mg/dL) 139 H 128 H 124 H (75-99) mg/dL Calcium (8.4-10.2) mg/dL Alkaline Phosphatase (38-126) U/L Total Protein (6.3-8.2) g/dL Crossmatch 02/07/18 02/07/18 02/07/18 Range/Units 01:11 02:15 03:14 RBC (3.80-5.40) m/uL Hgb (11.4-16.0) gm/dL Hct (34.0-46.0) % Plt Count (150-450) k/uL Lymphocytes # (1.0-4.8) k/uL INR (<1.2) APTT (22.0-30.0) sec ABG pH (7.35-7.45) ABG pCO2 (35-45) mmHg ABG pO2 (83-108) mmHg ABG Total CO2 (19-24) mmol/L Glucose (74-99) mg/dL POC Glucose (mg/dL) 124 H 129 H 140 H (75-99) mg/dL Calcium (8.4-10.2) mg/dL Alkaline Phosphatase (38-126) U/L Total Protein (6.3-8.2) g/dL Crossmatch 02/07/18 02/07/18 02/07/18 Range/Units 04:01 04:06 04:06 RBC 2.69 L (3.80-5.40) m/uL Hgb 8.2 L (11.4-16.0) gm/dL Hct 24.7 L (34.0-46.0) % Plt Count 75 L (150-450) k/uL Lymphocytes # 0.4 L (1.0-4.8) k/uL INR 1.2 H (<1.2) APTT 31.9 H (22.0-30.0) sec ABG pH (7.35-7.45) ABG pCO2 (35-45) mmHg ABG pO2 (83-108) mmHg ABG Total CO2 (19-24) mmol/L Glucose (74-99) mg/dL POC Glucose (mg/dL) 145 H (75-99) mg/dL Calcium (8.4-10.2) mg/dL Alkaline Phosphatase (38-126) U/L Total Protein (6.3-8.2) g/dL Crossmatch 02/07/18 02/07/18 02/07/18 Range/Units 04:06 06:20 07:07 RBC (3.80-5.40) m/uL Hgb (11.4-16.0) gm/dL Hct (34.0-46.0) % Plt Count (150-450) k/uL Lymphocytes # (1.0-4.8) k/uL INR (<1.2) APTT (22.0-30.0) sec ABG pH (7.35-7.45) ABG pCO2 (35-45) mmHg ABG pO2 (83-108) mmHg ABG Total CO2 (19-24) mmol/L Glucose 129 H (74-99) mg/dL POC Glucose (mg/dL) 149 H 167 H (75-99) mg/dL Calcium 8.0 L (8.4-10.2) mg/dL Alkaline Phosphatase 25 L (38-126) U/L Total Protein 4.9 L (6.3-8.2) g/dL Crossmatch 02/07/18 02/07/18 02/07/18 Range/Units 08:07 08:52 09:46 RBC (3.80-5.40) m/uL Hgb (11.4-16.0) gm/dL Hct (34.0-46.0) % Plt Count (150-450) k/uL Lymphocytes # (1.0-4.8) k/uL INR (<1.2) APTT (22.0-30.0) sec ABG pH (7.35-7.45) ABG pCO2 (35-45) mmHg ABG pO2 (83-108) mmHg ABG Total CO2 (19-24) mmol/L Glucose (74-99) mg/dL POC Glucose (mg/dL) 214 H 290 H 251 H (75-99) mg/dL Calcium (8.4-10.2) mg/dL Alkaline Phosphatase (38-126) U/L Total Protein (6.3-8.2) g/dL Crossmatch 02/07/18 02/07/18 02/07/18 Range/Units 09:49 11:03 12:02 RBC (3.80-5.40) m/uL Hgb (11.4-16.0) gm/dL Hct (34.0-46.0) % Plt Count (150-450) k/uL Lymphocytes # (1.0-4.8) k/uL INR (<1.2) APTT (22.0-30.0) sec ABG pH (7.35-7.45) ABG pCO2 (35-45) mmHg ABG pO2 (83-108) mmHg ABG Total CO2 (19-24) mmol/L Glucose (74-99) mg/dL POC Glucose (mg/dL) 239 H 176 H 134 H (75-99) mg/dL Calcium (8.4-10.2) mg/dL Alkaline Phosphatase (38-126) U/L Total Protein (6.3-8.2) g/dL Crossmatch 02/07/18 02/07/18 02/07/18 Range/Units 13:02 14:22 15:19 RBC (3.80-5.40) m/uL Hgb (11.4-16.0) gm/dL Hct (34.0-46.0) % Plt Count (150-450) k/uL Lymphocytes # (1.0-4.8) k/uL INR (<1.2) APTT (22.0-30.0) sec ABG pH (7.35-7.45) ABG pCO2 (35-45) mmHg ABG pO2 (83-108) mmHg ABG Total CO2 (19-24) mmol/L Glucose (74-99) mg/dL POC Glucose (mg/dL) 121 H 203 H 157 H (75-99) mg/dL Calcium (8.4-10.2) mg/dL Alkaline Phosphatase (38-126) U/L Total Protein (6.3-8.2) g/dL Crossmatch 02/07/18 Range/Units 16:22 RBC (3.80-5.40) m/uL Hgb (11.4-16.0) gm/dL Hct (34.0-46.0) % Plt Count (150-450) k/uL Lymphocytes # (1.0-4.8) k/uL INR (<1.2) APTT (22.0-30.0) sec ABG pH (7.35-7.45) ABG pCO2 (35-45) mmHg ABG pO2 (83-108) mmHg ABG Total CO2 (19-24) mmol/L Glucose (74-99) mg/dL POC Glucose (mg/dL) 135 H (75-99) mg/dL Calcium (8.4-10.2) mg/dL Alkaline Phosphatase (38-126) U/L Total Protein (6.3-8.2) g/dL Crossmatch Microbiology - Last 24 Hours (Table) 02/04/18 22:55 Urine Culture - Final Urine,Voided - Imaging and Cardiology Chest x-ray: report reviewed, image reviewed Assessment and Plan (1) Coronary artery disease involving left main coronary artery Current Visit: Yes Status: Chronic Code(s): I25.10 - ATHSCL HEART DISEASE OF [place] CORONARY ARTERY W/O ANG PCTRS SNOMED Code(s): 156026464 (2) Hypertension Current Visit: Yes Status: Chronic Code(s): I10 - ESSENTIAL (PRIMARY) HYPERTENSION SNOMED Code(s): 14914439 (3) Hyperlipidemia Current Visit: Yes Status: Chronic Code(s): E78.5 - HYPERLIPIDEMIA, UNSPECIFIED SNOMED Code(s): 24039867 (4) Diabetes mellitus Current Visit: Yes Status: Chronic Code(s): E11.9 - TYPE 2 DIABETES MELLITUS WITHOUT COMPLICATIONS SNOMED Code(s): 08218044 (5) Pulmonary hypertension Current Visit: Yes Status: Chronic Code(s): I27.20 - PULMONARY HYPERTENSION , UNSPECIFIED SNOMED Code(s): 27226960 (6) Chronic diastolic heart failure Current Visit: Yes Status: Chronic Code(s): I50.32 - CHRONIC DIASTOLIC ( CONGESTIVE) HEART FAILURE SNOMED Code(s): 622747007 (7) Depression Current Visit: Yes Status: Chronic Code(s): F32.9 - MAJOR DEPRESSIVE DISORDER, SINGLE EPISODE, UNSPECIFIED SNOMED Code(s): 15124938 (8) History of breast cancer Current Visit: No Status: Resolved Code(s): Z85.3 - PERSONAL HISTORY OF MALIGNANT NEOPLASM OF BREAST SNOMED Code(s): 274951975 (9) History of lumpectomy of right breast Current Visit: No Status: Resolved Code(s): Z98.890 - OTHER SPECIFIED POSTPROCEDURAL STATES SNOMED Code(s): 797639030 (10) History of radiation therapy Current Visit: No Status: Resolved Code(s): Z92.3 - PERSONAL HISTORY OF IRRADIATION SNOMED Code(s): 728602974 (11) Tobacco dependence in remission Current Visit: No Status: Resolved Code(s): F17.201 - NICOTINE DEPENDENCE, UNSPECIFIED, IN REMISSION SNOMED Code(s): 616077168 Plan: 1. Continue aspirin, statin, beta stiven, heparin SQ. Will increase beta stiven therapy as tolerated. 2. Encourage incentive spirometry use 10 times every hour. 3. Increase activity, ambulate in hallway. PT/OT/cardiac rehab following. 4. Will monitor daily labs and x-rays. Received 1 unit packed red blood cells yesterday. No need for further transfusions at this point. 5. GI/DVT prophylaxis. 6. Pain medication with ordered medication regimen. 7. Insulin/diabetic management per primary care service. 8. Bronchodilators per pulmonology. 9. Saint Joe to be discontinued this morning. Connected Cordis to continue his CVP monitoring. 10. More recommendations to follow. Time with Patient: Greater than 30
[2018-02-07 17:10] LABS: Glucose,Whole Blood 118 mg/dL (75-99)
--- NOTE | 2018-02-07 17:14 | PN ---
PROGRESS NOTE Mrs. Acuña is a 72-year-old female who presented to undergo coronary artery bypass grafting. She underwent surgery yesterday by Dr. Alvarado and received a ZELAYA to LAD, saphenous vein graft to the obtuse marginal branch. She is extubated, sitting up in the chair, feeling well. She denies any chest pain. Hemodynamically she is stable. She is in sinus mechanism. She has no evidence of tachycardia or bradycardia. She continues to be on aspirin once a day, Plavix 75 mg daily, Lipitor 40 mg daily and metoprolol tartrate 25 mg twice a day. PHYSICAL EXAMINATION: Blood pressure 133/50 with a heart in 70s. LUNGS: A few crackles at the bases. HEART: Regular rate and rhythm. S1, S2. No S3 with a rub. No gallop. ABDOMEN: Soft, nontender. EXTREMITIES: No significant edema. Chest x-ray shows a basilar opacity. EKG shows no acute changes. LAB DATA: BUN and creatinine are 12 and 0.53, hemoglobin of 8.2. IMPRESSION: 1. Status post coronary artery bypass grafting stable. 2. History of hypertension. 3. Diabetes. 4. Hyperlipidemia. RECOMMENDATIONS: From the cardiac standpoint, she is stable. Will continue incentive spirometry, follow her renal function and, depending on her progress, further recommendations will be made. MMODL / IJN: [id number] /
[2018-02-07] MEDS: LACTATED RINGERS 1,000 ML IV SCH (17:17)
[2018-02-07] MEDS: NITROGLYCERIN-D5W PMX 50 MG in DEXTROSE/WATER 1 250ML.BAG IV SCH (18:00)
[2018-02-07 18:07] LABS: Glucose,Whole Blood 185 mg/dL (75-99)
[2018-02-07] MEDS: INSULIN REGULAR 100 UNIT in SODIUM CHLORIDE 0.9% 100 ML IV SCH (18:08)
[2018-02-07] MEDS: FLUoxetine HCL 20 MG CAP PO SCH (19:09)
[2018-02-07] MEDS: METOPROLOL TARTRATE 25 MG TAB PO SCH (19:09)
[2018-02-07 19:27] LABS: Glucose,Whole Blood 217 mg/dL (75-99)
[2018-02-07 20:17] LABS: Glucose,Whole Blood 201 mg/dL (75-99)
[2018-02-07] MEDS: ATORVASTATIN 40 MG TAB PO SCH (20:19)
[2018-02-07] MEDS: SENNOSIDES-DOCUSATE SODIUM 1 EACH TAB PO SCH (20:20)
[2018-02-07 21:02] LABS: Glucose,Whole Blood 170 mg/dL (75-99)
[2018-02-07 21:58] LABS: Glucose,Whole Blood 146 mg/dL (75-99)
[2018-02-07 23:07] LABS: Glucose,Whole Blood 146 mg/dL (75-99)
[2018-02-08 01:07] LABS: Glucose,Whole Blood 120 mg/dL (75-99)
[2018-02-08 02:18] LABS: Glucose,Whole Blood 94 mg/dL (75-99)
[2018-02-08 03:11] LABS: Glucose,Whole Blood 127 mg/dL (75-99)
[2018-02-08] MEDS: HYDROcodone/APAP 5-325MG 1 EACH TAB PO PRN ×5 (03:22→18:07)
[2018-02-08 04:19] LABS: Glucose,Whole Blood 115 mg/dL (75-99)
[2018-02-08 04:23] LABS: Basophils % (A) 0 %; Eosinophils # (A) 0.1 k/uL (0-0.7); Eosinophils % (A) 1 %; HGB 8.6 gm/dL (11.4-16.0); Lymphocytes # (A) 0.6 k/uL (1.0-4.8); Lymphocytes % (A) 8 %; MCH 31.9 pg (25.0-35.0); MCHC 34.5 g/dL (31.0-37.0); MCV 92.5 fL (80.0-100.0); Mean Platelet Volume 9.8; Monocytes # (A) 0.5 k/uL (0-1.0); Monocytes % (A) 6 %; Neutrophils # (A) 6.2 k/uL (1.3-7.7); Neutrophils % (A) 84 %; RBC 2.71 m/uL (3.80-5.40); RDW 14.9 % (11.5-15.5); WBC 7.4 k/uL (3.8-10.6)
[2018-02-08 04:28] LABS: INR 1.1 (<1.2); Platelet Count 89 k/uL (150-450); Prothrombin Time 10.8 sec (9.0-12.0)
[2018-02-08 04:36] LABS: ALT 45 U/L (9-52); AST 43 U/L (14-36); Albumin 3.3 g/dL (3.5-5.0); Alkaline Phosphatase 30 U/L (38-126); Anion Gap 10 mmol/L; Blood Urea Nitrogen 12 mg/dL (7-17); Calcium 8.5 mg/dL (8.4-10.2); Carbon Dioxide 23 mmol/L (22-30); Chloride 104 mmol/L (98-107); Glucose 120 mg/dL (74-99); Magnesium 1.8 mg/dL (1.6-2.3); Sodium 137 mmol/L (137-145); Total Bilirubin 0.7 mg/dL (0.2-1.3); Total Protein 4.8 g/dL (6.3-8.2)
[2018-02-08 06:31] LABS: Glucose,Whole Blood 197 mg/dL (75-99)
--- NOTE | 2018-02-08 06:56 | XR ---
EXAMINATION TYPE: XR chest 1V portable DATE OF EXAM: 02/08/2018 HISTORY: Post Operative Cardiac Surgery. REFERENCE: Previous study dated 02/07/2018. FINDINGS: There has been a midline sternotomy. The patient Homer-Sweetie catheter is been removed. A righ t internal jugular sheath persists. A left pleural drain is in place. There is worsening bibasilar airspace disease. There are small, bilateral effusions. Heart size is up per limits of normal. IMPRESSION: WORSENING BIBASILAR INFILTRATES.
[2018-02-08 07:13] LABS: Glucose,Whole Blood 181 mg/dL (75-99)
[2018-02-08] MEDS: MAGNESIUM SULFATE-D5W PMX 1 GM in DEXTROSE/WATER 1 100ML.BAG IVPB SCH ×2 (07:22→09:18)
[2018-02-08] MEDS: HEPARIN SODIUM,PORCINE 5,000 UNIT/ML 1 ML VIAL SQ SCH ×3 (07:27→22:05)
[2018-02-08] MEDS: IPRATROPIUM-ALBUTEROL 3 ML NEB INHALATION SCH ×4 (08:13→19:57)
[2018-02-08] MEDS ORDERED: FUROSEMIDE 10 MG/ML 2 ML VIAL IV ONE (08:26)
[2018-02-08] MEDS ORDERED: INSULIN DETEMIR 100 UNIT/ML 10 ML VIAL SQ ONE (08:40)
--- NOTE | 2018-02-08 08:49 | P.PN ---
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 Initially she had seen Dr. Leigh in the office and had a stress test performed. During her stress test she was noted to have EKG changes consistent with anterior apical and inferior lateral reversible defect. She developed her chest pain symptoms and received a nitroglycerin. She subsequently underwent cardiac catheterization on the morning of 02/04 which showed disease in the left main, RCA, circumflex, and LAD. She was subsequently placed on a heparin drip and admitted to the ICU. Dr. Alvarado from cardiothoracic surgery was consulted for regarding revascularization recommendations. Preoperative testing was started on 02/04/18. On the morning of 02/06 she underwent two-vessel bypass grafting with left internal mammary artery to the LAD and saphenous vein graft to the obtuse marginal. She was admitted to the ICU sedated on the ventilator. Intraoperatively she received 1 unit of packed red blood cells. She was extubated on 02/06 and had no acute events over night. Her Blood sugar continued to be elevated despite insulin gtt and levemir was started the morning of 02/08 in hope of getting her off insulin gtt while maintaining BS <180. Patient seen and examined at bedside. She complains of feeling sore all over and having some chest pain. She states medicines are helping. No shortness of breath. No nausea. No bowel movement yet. Discussed with her sugars and continue the ER maintaining strength slowly adjust insulin to keep her sugars better controlled. Objective - Vital Signs Vital signs: Vital Signs Temp 98.9 F 02/08/18 04:00 Pulse 76 02/08/18 08:23 Resp 14 02/08/18 06:00 BP 113/54 02/08/18 06:00 Pulse Ox 93 L 02/08/18 06:00 Intake & Output 02/07/18 02/08/18 02/08/18 18:59 06:59 18:59 Intake Total 1187.185 490.675 36 Output Total 1140 1415 35 Balance 47.185 -924.325 1 Weight 77.6 kg 79.6 kg Intake: IV 521 432 36 CO/CI 20 Lactated Ringers 1,000 ml 420 360 30 @ 20 mls/hr IV .Q24H [facility] Rx#:[id number] Pressure Bag 81 72 6 Intake, IV Titration 66.185 58.675 Amount Insulin Regular 100 unit 66.185 58.675 In Sodium Chloride 0.9% 100 ml @ Per Protocol IV .Q0M [facility] Rx#:[id number] Oral 600 Output: Chest Tube Drainage 608 330 0 Left Pleural 198 200 0 Mediastinal 410 130 0 Urine 532 1085 35 Other: Voiding Method Indwelling Catheter Indwelling Catheter ABP, PAP, CO, CI - Last Documented Arterial Blood Pressure 120/50 Pulmonary Artery Pressure 92/63 Cardiac Output 5.2 Cardiac Index 2.0 - Exam General: No distress, ill-appearing, appears at stated age Derm: warm, dry, bilateral Jose wraps to lower extremities Head: atraumatic, normocephalic, symmetric Eyes: EOMI, no lid lag, anicteric sclera Mouth: no lip lesion, mucus membranes moist Cardiovascular: S1S2 reg with murmur, mediastinal chest tube in place Lungs: Coarse breath sounds bilateral, no rhonchi, no rales , no accessory muscle use, chest tube in place Abdominal: soft, nontender to palpation, no guarding, no appreciable organomegaly Ext: no gross muscle atrophy, no edema, no contractures Neuro: CN II-XII grossly intact, No gross neuro deficits Psych: Awake, alert, appropriate affect - Labs CBC & Chem 7: 02/08/18 04:14 02/08/18 04:14 Labs: Abnormal Lab Results - Last 24 Hours (Table) 02/07/18 02/07/18 02/07/18 Range/Units 08:52 09:46 09:49 RBC (3.80-5.40) m/uL Hgb (11.4-16.0) gm/dL Hct (34.0-46.0) % Plt Count (150-450) k/uL Lymphocytes # (1.0-4.8) k/uL Glucose (74-99) mg/dL POC Glucose (mg/dL) 290 H 251 H 239 H (75-99) mg/dL AST (14-36) U/L Alkaline Phosphatase (38-126) U/L Total Protein (6.3-8.2) g/dL Albumin (3.5-5.0) g/dL 02/07/18 02/07/18 02/07/18 Range/Units 11:03 12:02 13:02 RBC (3.80-5.40) m/uL Hgb (11.4-16.0) gm/dL Hct (34.0-46.0) % Plt Count (150-450) k/uL Lymphocytes # (1.0-4.8) k/uL Glucose (74-99) mg/dL POC Glucose (mg/dL) 176 H 134 H 121 H (75-99) mg/dL AST (14-36) U/L Alkaline Phosphatase (38-126) U/L Total Protein (6.3-8.2) g/dL Albumin (3.5-5.0) g/dL 02/07/18 02/07/18 02/07/18 Range/Units 14:22 15:19 16:22 RBC (3.80-5.40) m/uL Hgb (11.4-16.0) gm/dL Hct (34.0-46.0) % Plt Count (150-450) k/uL Lymphocytes # (1.0-4.8) k/uL Glucose (74-99) mg/dL POC Glucose (mg/dL) 203 H 157 H 135 H (75-99) mg/dL AST (14-36) U/L Alkaline Phosphatase (38-126) U/L Total Protein (6.3-8.2) g/dL Albumin (3.5-5.0) g/dL 02/07/18 02/07/18 02/07/18 Range/Units 17:08 18:06 19:24 RBC (3.80-5.40) m/uL Hgb (11.4-16.0) gm/dL Hct (34.0-46.0) % Plt Count (150-450) k/uL Lymphocytes # (1.0-4.8) k/uL Glucose (74-99) mg/dL POC Glucose (mg/dL) 118 H 185 H 217 H (75-99) mg/dL AST (14-36) U/L Alkaline Phosphatase (38-126) U/L Total Protein (6.3-8.2) g/dL Albumin (3.5-5.0) g/dL 02/07/18 02/07/18 02/07/18 Range/Units 20:10 21:00 21:55 RBC (3.80-5.40) m/uL Hgb (11.4-16.0) gm/dL Hct (34.0-46.0) % Plt Count (150-450) k/uL Lymphocytes # (1.0-4.8) k/uL Glucose (74-99) mg/dL POC Glucose (mg/dL) 201 H 170 H 146 H (75-99) mg/dL AST (14-36) U/L Alkaline Phosphatase (38-126) U/L Total Protein (6.3-8.2) g/dL Albumin (3.5-5.0) g/dL 02/07/18 02/08/18 02/08/18 Range/Units 23:06 01:05 03:08 RBC (3.80-5.40) m/uL Hgb (11.4-16.0) gm/dL Hct (34.0-46.0) % Plt Count (150-450) k/uL Lymphocytes # (1.0-4.8) k/uL Glucose (74-99) mg/dL POC Glucose (mg/dL) 146 H 120 H 127 H (75-99) mg/dL AST (14-36) U/L Alkaline Phosphatase (38-126) U/L Total Protein (6.3-8.2) g/dL Albumin (3.5-5.0) g/dL 02/08/18 02/08/18 02/08/18 Range/Units 04:14 04:14 04:14 RBC 2.71 L (3.80-5.40) m/uL Hgb 8.6 L (11.4-16.0) gm/dL Hct 25.0 L (34.0-46.0) % Plt Count 89 L (150-450) k/uL Lymphocytes # 0.6 L (1.0-4.8) k/uL Glucose 120 H (74-99) mg/dL POC Glucose (mg/dL) 115 H (75-99) mg/dL AST 43 H (14-36) U/L Alkaline Phosphatase 30 L (38-126) U/L Total Protein 4.8 L (6.3-8.2) g/dL Albumin 3.3 L (3.5-5.0) g/dL 02/08/18 02/08/18 Range/Units 06:24 07:12 RBC (3.80-5.40) m/uL Hgb (11.4-16.0) gm/dL Hct (34.0-46.0) % Plt Count (150-450) k/uL Lymphocytes # (1.0-4.8) k/uL Glucose (74-99) mg/dL POC Glucose (mg/dL) 197 H 181 H (75-99) mg/dL AST (14-36) U/L Alkaline Phosphatase (38-126) U/L Total Protein (6.3-8.2) g/dL Albumin (3.5-5.0) g/dL Assessment and Plan Assessment: 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 Alvarado's service - ASA, lipitor, plavix, Lopressor Anemia secondary to acute blood loss as an expectorant and anticipated outcome of surgical procedure -Received 1 unit packed red blood cells in the OR -Follow CBC - start Ferrous sulfate BID X 30 day, bowel regiment in placed Thrombocytopenia, improving -Likely consumptive and reactive with surgery -Follow CBC Diabetes mellitus Type II - Continue off metformin and Amaryl - follow BS, on post operative insulin drip add levemir, repeat BS prior to lunch if controlled then transition off insulin gtt. -A1c 7.9., on discharge plan for metformin 1000mg BID, Glimepiride, add januvia. Could consider Janumet 1000/50 BIG to decrease # of pills needed. HTN - lopressor - follow BP -Home atenolol, lisinopril and norvasc on hold postoperatively HLD - statin GERD -protonix Depression -effexor DVT prophylaxis: Heparin
--- NOTE | 2018-02-08 08:54 | P.PN ---
Subjective Progress Note Date: 02/08/18 Principal diagnosis: Triple-vessel coronary artery disease with left main disease. Mild to moderate aortic stenosis, grade 3 diastolic dysfunction, mild mitral regurgitation, mild tricuspid regurgitation. Mild thrombocytopenia. Previous medical history of hypertension, diabetes mellitus, hyperlipidemia, pulmonary hypertension, depression, previous tobacco dependence with preoperative FEV1 82% of predicted , back surgery, and breast cancer with lumpectomy and radiation in 2006. POD #2 urgent coronary artery bypass graft 2 vessels, left internal mammary artery to left anterior descending coronary artery, reverse saphenous vein graft to obtuse marginal artery. Endoscopic vein harvest right greater saphenous vein. Epi-aortic ultrasound, intraoperative transesophageal echocardiogram. Postoperative normocytic, normochromic anemia, an expected outcome of surgery. Postoperative thrombocytopenia, expected outcome of surgery. Patient's currently sitting up in chair in no acute distress. States pain is controlled with current medication regimen. Denies shortness of breath. Patient is hemodynamically stable. She ambulated in the hallway 4 times yesterday. Objective - Vital Signs Vital signs: Vital Signs Temp 98.9 F 02/08/18 04:00 Pulse 76 02/08/18 08:23 Resp 14 02/08/18 06:00 BP 113/54 02/08/18 06:00 Pulse Ox 93 L 02/08/18 06:00 Intake & Output 02/07/18 02/08/18 02/08/18 18:59 06:59 18:59 Intake Total 1187.185 490.675 36 Output Total 1140 1415 35 Balance 47.185 -924.325 1 Weight 77.6 kg 79.6 kg Intake: IV 521 432 36 CO/CI 20 Lactated Ringers 1,000 ml 420 360 30 @ 20 mls/hr IV .Q24H [facility] Rx#:[id number] Pressure Bag 81 72 6 Intake, IV Titration 66.185 58.675 Amount Insulin Regular 100 unit 66.185 58.675 In Sodium Chloride 0.9% 100 ml @ Per Protocol IV .Q0M [facility] Rx#:[id number] Oral 600 Output: Chest Tube Drainage 608 330 0 Left Pleural 198 200 0 Mediastinal 410 130 0 Urine 532 1085 35 Other: Voiding Method Indwelling Catheter Indwelling Catheter ABP, PAP, CO, CI - Last Documented Arterial Blood Pressure 120/50 Pulmonary Artery Pressure 92/63 Cardiac Output 5.2 Cardiac Index 2.0 - Constitutional General appearance: Present: cooperative, no acute distress, obese - Respiratory Details: Lungs sounds diminished bilaterally. Respirations even, nonlabored. Currently on 3 L nasal cannula with oxygen saturation 92%, was on room air this morning while eating breakfast with an oxygen saturation of 84%. Able to achieve 750- 1000 mL on her incentive spirometry. Effective cough. Mediastinal chest tube to continuous wall suction, 60 mL serosanguineous drainage overnight, 550 mL in the last 24 hours. Left pleural chest tube to continuous wall suction, 150 mL serous drainage overnight, 400 mL in the last 24 hours. No air leaks present. - Cardiovascular Details: S1, S2 present. Regular rate and rhythm, sinus rhythm on telemetry. Sternum stable. A/V epicardial pacemaker wires present, grounded. Palpable peripheral pulses bilaterally. No edema present. No calf pain or tenderness noted. Right internal jugular Cordis, right radial arterial line present. Heart hugger in place with patient demonstrating appropriate use. Antiembolism stockings, SCDs present. - Gastrointestinal Gastrointestinal Comment(s): Abdomen soft, nontender, nondistended. Active bowel sounds present 4 quadrants. Tolerating diet. Positive flatus. - Genitourinary Genitourinary Comment(s): Harp present draining clear, yellow urine. Urine output 135-200 mL an hour in the early part of the evening and down to 30-50 mL per hour this morning.. - Integumentary Integumentary Comment(s): Skin is warm and dry with evidence of good perfusion. Anterior chest incision well approximated and covered with dry intact dressing. Right lower extremity EVH site well approximated. - Neurologic Neurologic: Present: CNII-XII intact - Musculoskeletal Musculoskeletal: Present: gait normal, strength equal bilaterally - Psychiatric Psychiatric: Present: A&O x's 3, appropriate affect, intact judgment & insight - Allied health notes Allied health notes reviewed: nursing - Labs CBC & Chem 7: 02/08/18 04:14 02/08/18 04:14 Labs: Abnormal Lab Results - Last 24 Hours (Table) 02/07/18 02/07/18 02/07/18 Range/Units 08:52 09:46 09:49 RBC (3.80-5.40) m/uL Hgb (11.4-16.0) gm/dL Hct (34.0-46.0) % Plt Count (150-450) k/uL Lymphocytes # (1.0-4.8) k/uL Glucose (74-99) mg/dL POC Glucose (mg/dL) 290 H 251 H 239 H (75-99) mg/dL AST (14-36) U/L Alkaline Phosphatase (38-126) U/L Total Protein (6.3-8.2) g/dL Albumin (3.5-5.0) g/dL 02/07/18 02/07/18 02/07/18 Range/Units 11:03 12:02 13:02 RBC (3.80-5.40) m/uL Hgb (11.4-16.0) gm/dL Hct (34.0-46.0) % Plt Count (150-450) k/uL Lymphocytes # (1.0-4.8) k/uL Glucose (74-99) mg/dL POC Glucose (mg/dL) 176 H 134 H 121 H (75-99) mg/dL AST (14-36) U/L Alkaline Phosphatase (38-126) U/L Total Protein (6.3-8.2) g/dL Albumin (3.5-5.0) g/dL 02/07/18 02/07/18 02/07/18 Range/Units 14:22 15:19 16:22 RBC (3.80-5.40) m/uL Hgb (11.4-16.0) gm/dL Hct (34.0-46.0) % Plt Count (150-450) k/uL Lymphocytes # (1.0-4.8) k/uL Glucose (74-99) mg/dL POC Glucose (mg/dL) 203 H 157 H 135 H (75-99) mg/dL AST (14-36) U/L Alkaline Phosphatase (38-126) U/L Total Protein (6.3-8.2) g/dL Albumin (3.5-5.0) g/dL 02/07/18 02/07/18 02/07/18 Range/Units 17:08 18:06 19:24 RBC (3.80-5.40) m/uL Hgb (11.4-16.0) gm/dL Hct (34.0-46.0) % Plt Count (150-450) k/uL Lymphocytes # (1.0-4.8) k/uL Glucose (74-99) mg/dL POC Glucose (mg/dL) 118 H 185 H 217 H (75-99) mg/dL AST (14-36) U/L Alkaline Phosphatase (38-126) U/L Total Protein (6.3-8.2) g/dL Albumin (3.5-5.0) g/dL 02/07/18 02/07/18 02/07/18 Range/Units 20:10 21:00 21:55 RBC (3.80-5.40) m/uL Hgb (11.4-16.0) gm/dL Hct (34.0-46.0) % Plt Count (150-450) k/uL Lymphocytes # (1.0-4.8) k/uL Glucose (74-99) mg/dL POC Glucose (mg/dL) 201 H 170 H 146 H (75-99) mg/dL AST (14-36) U/L Alkaline Phosphatase (38-126) U/L Total Protein (6.3-8.2) g/dL Albumin (3.5-5.0) g/dL 02/07/18 02/08/18 02/08/18 Range/Units 23:06 01:05 03:08 RBC (3.80-5.40) m/uL Hgb (11.4-16.0) gm/dL Hct (34.0-46.0) % Plt Count (150-450) k/uL Lymphocytes # (1.0-4.8) k/uL Glucose (74-99) mg/dL POC Glucose (mg/dL) 146 H 120 H 127 H (75-99) mg/dL AST (14-36) U/L Alkaline Phosphatase (38-126) U/L Total Protein (6.3-8.2) g/dL Albumin (3.5-5.0) g/dL 02/08/18 02/08/18 02/08/18 Range/Units 04:14 04:14 04:14 RBC 2.71 L (3.80-5.40) m/uL Hgb 8.6 L (11.4-16.0) gm/dL Hct 25.0 L (34.0-46.0) % Plt Count 89 L (150-450) k/uL Lymphocytes # 0.6 L (1.0-4.8) k/uL Glucose 120 H (74-99) mg/dL POC Glucose (mg/dL) 115 H (75-99) mg/dL AST 43 H (14-36) U/L Alkaline Phosphatase 30 L (38-126) U/L Total Protein 4.8 L (6.3-8.2) g/dL Albumin 3.3 L (3.5-5.0) g/dL 02/08/18 02/08/18 Range/Units 06:24 07:12 RBC (3.80-5.40) m/uL Hgb (11.4-16.0) gm/dL Hct (34.0-46.0) % Plt Count (150-450) k/uL Lymphocytes # (1.0-4.8) k/uL Glucose (74-99) mg/dL POC Glucose (mg/dL) 197 H 181 H (75-99) mg/dL AST (14-36) U/L Alkaline Phosphatase (38-126) U/L Total Protein (6.3-8.2) g/dL Albumin (3.5-5.0) g/dL - Imaging and Cardiology Chest x-ray: report reviewed, image reviewed Assessment and Plan (1) Coronary artery disease involving left main coronary artery Current Visit: Yes Status: Chronic Code(s): I25.10 - ATHSCL HEART DISEASE OF [place] CORONARY ARTERY W/O ANG PCTRS SNOMED Code(s): 451680409 (2) Hypertension Current Visit: Yes Status: Chronic Code(s): I10 - ESSENTIAL (PRIMARY) HYPERTENSION SNOMED Code(s): 02570820 (3) Hyperlipidemia Current Visit: Yes Status: Chronic Code(s): E78.5 - HYPERLIPIDEMIA, UNSPECIFIED SNOMED Code(s): 43562671 (4) Diabetes mellitus Current Visit: Yes Status: Chronic Code(s): E11.9 - TYPE 2 DIABETES MELLITUS WITHOUT COMPLICATIONS SNOMED Code(s): 29365436 (5) Pulmonary hypertension Current Visit: Yes Status: Chronic Code(s): I27.20 - PULMONARY HYPERTENSION , UNSPECIFIED SNOMED Code(s): 69081276 (6) Chronic diastolic heart failure Current Visit: Yes Status: Chronic Code(s): I50.32 - CHRONIC DIASTOLIC ( CONGESTIVE) HEART FAILURE SNOMED Code(s): 489529856 (7) Depression Current Visit: Yes Status: Chronic Code(s): F32.9 - MAJOR DEPRESSIVE DISORDER, SINGLE EPISODE, UNSPECIFIED SNOMED Code(s): 31701879 (8) History of breast cancer Current Visit: No Status: Resolved Code(s): Z85.3 - PERSONAL HISTORY OF MALIGNANT NEOPLASM OF BREAST SNOMED Code(s): 805145808 (9) History of lumpectomy of right breast Current Visit: No Status: Resolved Code(s): Z98.890 - OTHER SPECIFIED POSTPROCEDURAL STATES SNOMED Code(s): 596757016 (10) History of radiation therapy Current Visit: No Status: Resolved Code(s): Z92.3 - PERSONAL HISTORY OF IRRADIATION SNOMED Code(s): 193944770 (11) Tobacco dependence in remission Current Visit: No Status: Resolved Code(s): F17.201 - NICOTINE DEPENDENCE, UNSPECIFIED, IN REMISSION SNOMED Code(s): 208054815 Plan: 1. Continue aspirin, statin, Plavix, beta stiven, heparin SQ. Will increase beta stiven therapy as tolerated. 2. Encourage incentive spirometry use 10 times every hour. 3. Increase activity, ambulate in hallway. PT/OT/cardiac rehab following. 4. Will monitor daily labs and x-rays. No need for further transfusions at this point. 5. GI/DVT prophylaxis. 6. Pain medication with ordered medication regimen. 7. Insulin/diabetic management per primary care service. 8. Bronchodilators per pulmonology. 9. We'll give Lasix 20 mg IV push 1 today. 10. Replace magnesium per protocol. 11. Likely will discontinue mediastinal chest tube today. 12. Will place transfer orders. Patient may go to 6 E. later today if bed available. 13. More recommendations to follow. Time with Patient: Greater than 30
[2018-02-08 09:03] LABS: Glucose,Whole Blood 298 mg/dL (75-99)
[2018-02-08] MEDS: INSULIN REGULAR 100 UNIT in SODIUM CHLORIDE 0.9% 100 ML IV SCH (09:05)
[2018-02-08] MEDS: MUPIROCIN 2% OINT 22 GM TUBE NASAL SCH ×2 (09:21→21:47)
[2018-02-08] MEDS: PANTOPRAZOLE 40 MG/10 ML VIAL IVP SCH (09:40)
[2018-02-08] MEDS: METOPROLOL TARTRATE 25 MG TAB PO SCH ×2 (09:41→21:47)
[2018-02-08] MEDS: FLUoxetine HCL 20 MG CAP PO SCH (09:41)
[2018-02-08] MEDS: ASPIRIN 81 MG PO SCH (09:49)
[2018-02-08 10:13] LABS: Glucose,Whole Blood 256 mg/dL (75-99)
[2018-02-08] MEDS: CLOPIDOGREL 75 MG TAB PO SCH (10:41)
[2018-02-08] MEDS: LACTATED RINGERS 1,000 ML IV SCH (10:42)
[2018-02-08 11:14] LABS: Glucose,Whole Blood 195 mg/dL (75-99)
--- NOTE | 2018-02-08 11:48 | P.PN ---
Subjective Progress Note Date: 02/08/18 Mrs. Acuña is a 72-year-old white female patient of Dr. Pranav Doe, who was brought in for cardiac catheterization today on 02/04/2018, following up positive stress test at the [facility]. Patient has been having substernal chest pain, with bilateral arm heaviness, and ringing in her ears on and off since November. She states her symptoms would be brought after eating, and physical exertion like walking. Relieved with rest, and deep breathing. Lately her symptoms were also accompanied by sweating. Her PCP referred her to cardiology, she underwent exercise stress test on 02/03/2018, and she had chest pain, diaphoresis, significant infero-apical ST segment depression, and she was scheduled for cardiac catheterization today, which showed 70-80% left main lesion, 80% lesion in the circumflex, obtuse marginal that was mid and proximal LAD. The RCA was diffusely diseased, but was nondominant. There was a less than 10 mm gradient across the aortic valve. Lab work showed WBC of 4.2, hemoglobin of 11.7, electrolytes and renal profile were essentially normal, magnesium was 1.3, LFTs were normal. Past medical history is positive for hypertension, diabetes mellitus type 2, hyperlipidemia, depression, remote and brief smoking history, back surgery, breast cancer in 2005, status post lumpectomy and radiation. Most recent mammogram from December 2017 was normal. Echocardiogram showed mild to moderate aortic stenosis with mean gradient of 15 mmHg, mild pulmonary hypertension, concentric LVH and left atrial enlargement, ejection fraction of 55%. Patient was referred to cardiothoracic surgery and she was recommended surgical revascularization to which she agreed. Her surgery is scheduled for 02/06/[address] Alvarado. On 02/05/2018, the patient is calm and comfortable free of any chest resting in bed. No respiratory difficulties. Review the CAT scan of the chest and there is no acute abnormalities. The spirometry shows preserved FEV1 at 82%. She is hemodynamically stable. The patient is awaiting her cardiac surgery and bypass for tomorrow. No nausea. No vomiting. No altered mentation. No other complaints otherwise for now. On 02/06/2018 patient seen in follow-up in intensive care, she is status post two-vessel coronary artery bypass grafting, ZELAYA to LAD and SVG to the up to his marginal. She is sedated, on mechanical ventilation, on on SIMV mode of ventilation, with a rate of 12, 400 tidal volume, FiO2 of 100%, and PEEP of 5. Postop blood gases were reviewed, showed pO2 131, pCO2 of 48.5, and pH of 7.3. She was placed on assist-control mode of ventilation, with a rate of 18, tidal vital 500, FiO2 100% and PEEP of 5. Patient's O2 sat is 100%, and FiO2 was dropped to 80%. Venous IV drips is LR at a rate of 50 ML per hour, clevidipine at 1 mg per hour, nitroglycerin at 5 mics per minute, and Diprivan 25 mcg/kg/ min. she is hemodynamically stable, cardiac outputs and cardiac index are 5.9, and 3.3. PA pressures of 51/27, with a map of 39. CVP is 21. Patient is in sinus rhythm, AV wires are present, external pacemaker with backup rate of VVI 40 Bpm. Postop blood work shows a VC of 4.6, hemoglobin of 7.4, INR is 1.4, sodium is 140, potassium is 4.5, chloride is 110, renal profile is within normal limits. Postop chest x-ray has been reviewed by Dr. Harper, and shows stop changes with lines and tubes, and a new postoperative patchy retrocardiac atelectasis. Indwelling catheter is present, and patient is nonoliguric. 2 mediastinal and one left pleural chest tube are present, there is 40 mL of sanguinous output from the mediastinal, and 30 mL out of the left pleural chest tubes. On 02/07/2018 patient seen in follow-up in the intensive care unit, this is postop day 1, status post two-vessel coronary artery bypass grafting, ZELAYA to LAD and SVG to the obtuse marginal. Patient extubated yesterday at 1829, on 08/2017. Currently she is awake, alert, sitting up in the chair, currently on room air, on 2 L her pulse ox was 96%, denies any dyspnea, her pain is reasonably controlled, vital signs are stable, blood pressures 122/47, pO2 is 53 /24, cardiac output and index is 5.2 and 2.9. Current drips include lactated Ringer's at a rate of 50 ML per hour, nitroglycerin at 5 mics per minute, and insulin drip at 3.5 units per hour. Lung sounds are clear, diminished at the bases, no rhonchi, no rales noted. Patient is in sinus rhythm, with a rate of 85 bpm, AV wires are present, external pacemaker on backup rate. There has been 460 mL of serosanguineous output from the mediastinal chest tube, and about 450 out of the left pleural. No air leak noted. Surgeons are clean dry and intact. Today's chest x-ray has been reviewed. It shows new right basilar opacity post extubation this could represent atelectasis. Incentive spirometry effort is 750-1000 ML today. Patient received a unit of packed red blood cells yesterday in the postoperative period, and today's labs show hemoglobin of 8.2, platelet count of 75, electrolytes and renal profile are normal. On 02/08/2018 and seeing this patient for a follow-up. The patient is postop day #2. She is doing extremely well. She has no respiratory difficulties. She is using incentive spirometer. She is postop day #2. No nausea. No vomiting. No chest pain. The patient is producing adequate amount of urine output. The output from the mediastinal chest tube is low at 60 mL over the past 24 hours and output from the left pleural chest tube is around 550 mL over the past 24 hours. No evidence of any air leak. Chest x-ray shows some limited bibasilar pulmonary infiltration. No evidence of any pneumothorax. The Chapin-Sweetie catheter was removed this morning. She is on no pressors. She is on insulin drip for blood sugar control. Cardiac rhythm is sinus with occasional PACs. Objective - Vital Signs Vital signs: Vital Signs Temp 98.9 F 02/08/18 04:00 Pulse 66 02/08/18 11:00 Resp 18 02/08/18 11:00 BP 102/56 02/08/18 11:00 Pulse Ox 98 02/08/18 11:00 Intake & Output 02/07/18 02/08/18 02/08/18 18:59 06:59 18:59 Intake Total 1187.185 490.675 177.862 Output Total 1140 1415 495 Balance 47.185 -924.325 -317.138 Weight 77.6 kg 79.6 kg Intake: IV 521 432 144 CO/CI 20 Lactated Ringers 1,000 ml 420 360 120 @ 20 mls/hr IV .Q24H [facility] Rx#:[id number] Pressure Bag 81 72 24 Intake, IV Titration 66.185 58.675 33.862 Amount Insulin Regular 100 unit 66.185 58.675 33.862 In Sodium Chloride 0.9% 100 ml @ Per Protocol IV .Q0M [facility] Rx#:[id number] Oral 600 Output: Chest Tube Drainage 608 330 60 Left Pleural 198 200 20 Mediastinal 410 130 40 Urine 532 1085 435 Other: Voiding Method Indwelling Catheter Indwelling Catheter ABP, PAP, CO, CI - Last Documented Arterial Blood Pressure 133/55 Pulmonary Artery Pressure 92/63 Cardiac Output 5.2 Cardiac Index 2.0 - Exam GENERAL EXAM: 72-year-old white female, awake, alert, oriented 3 HEAD: Normocephalic/atraumatic. EYES: Normal reaction of pupils, equal size. Conjunctiva pink, sclera white. NOSE: Clear with pink turbinates. THROAT: No erythema or exudates. NECK: No masses, no JVD, no thyroid enlargement, no adenopathy. CHEST: No chest wall deformity. Symmetrical expansion. Midsternal incision is clean dry and intact, covered with surgical dressing, 1 mediastinal and one left pleural chest tube are present, with serosanguinous output in the pleura- vac, AV wires to external pacemaker with a backup rate of 40 BPM LUNGS: Equal air entry, diminished breath sounds at the bases CVS: Regular rate and rhythm, normal S1 and S2, no gallops, no murmurs, no rubs ABDOMEN: Soft, nontender. No hepatosplenomegaly, normal bowel sounds, no guarding or rigidity. EXTREMITIES: No clubbing, no edema, no cyanosis, 2+ pulses and upper and left lower extremity. Right groin puncture is clean dry and intact, soft. Bilateral lower extremities, with Jose wraps, SCDs on MUSCULOSKELETAL: Muscle strength and tone normal. SPINE: No scoliosis or deformity SKIN: No rashes CENTRAL NERVOUS SYSTEM: No focal neurological deficits. PSYCHIATRIC: Intact judgment and insight - Labs CBC & Chem 7: 02/08/18 04:14 02/08/18 04:14 Labs: Abnormal Lab Results - Last 24 Hours (Table) 02/07/18 02/07/18 02/07/18 Range/Units 12:02 13:02 14:22 RBC (3.80-5.40) m/uL Hgb (11.4-16.0) gm/dL Hct (34.0-46.0) % Plt Count (150-450) k/uL Lymphocytes # (1.0-4.8) k/uL Glucose (74-99) mg/dL POC Glucose (mg/dL) 134 H 121 H 203 H (75-99) mg/dL AST (14-36) U/L Alkaline Phosphatase (38-126) U/L Total Protein (6.3-8.2) g/dL Albumin (3.5-5.0) g/dL 02/07/18 02/07/18 02/07/18 Range/Units 15:19 16:22 17:08 RBC (3.80-5.40) m/uL Hgb (11.4-16.0) gm/dL Hct (34.0-46.0) % Plt Count (150-450) k/uL Lymphocytes # (1.0-4.8) k/uL Glucose (74-99) mg/dL POC Glucose (mg/dL) 157 H 135 H 118 H (75-99) mg/dL AST (14-36) U/L Alkaline Phosphatase (38-126) U/L Total Protein (6.3-8.2) g/dL Albumin (3.5-5.0) g/dL 02/07/18 02/07/18 02/07/18 Range/Units 18:06 19:24 20:10 RBC (3.80-5.40) m/uL Hgb (11.4-16.0) gm/dL Hct (34.0-46.0) % Plt Count (150-450) k/uL Lymphocytes # (1.0-4.8) k/uL Glucose (74-99) mg/dL POC Glucose (mg/dL) 185 H 217 H 201 H (75-99) mg/dL AST (14-36) U/L Alkaline Phosphatase (38-126) U/L Total Protein (6.3-8.2) g/dL Albumin (3.5-5.0) g/dL 02/07/18 02/07/18 02/07/18 Range/Units 21:00 21:55 23:06 RBC (3.80-5.40) m/uL Hgb (11.4-16.0) gm/dL Hct (34.0-46.0) % Plt Count (150-450) k/uL Lymphocytes # (1.0-4.8) k/uL Glucose (74-99) mg/dL POC Glucose (mg/dL) 170 H 146 H 146 H (75-99) mg/dL AST (14-36) U/L Alkaline Phosphatase (38-126) U/L Total Protein (6.3-8.2) g/dL Albumin (3.5-5.0) g/dL 02/08/18 02/08/18 02/08/18 Range/Units 01:05 03:08 04:14 RBC (3.80-5.40) m/uL Hgb (11.4-16.0) gm/dL Hct (34.0-46.0) % Plt Count (150-450) k/uL Lymphocytes # (1.0-4.8) k/uL Glucose 120 H (74-99) mg/dL POC Glucose (mg/dL) 120 H 127 H (75-99) mg/dL AST 43 H (14-36) U/L Alkaline Phosphatase 30 L (38-126) U/L Total Protein 4.8 L (6.3-8.2) g/dL Albumin 3.3 L (3.5-5.0) g/dL 02/08/18 02/08/18 02/08/18 Range/Units 04:14 04:14 06:24 RBC 2.71 L (3.80-5.40) m/uL Hgb 8.6 L (11.4-16.0) gm/dL Hct 25.0 L (34.0-46.0) % Plt Count 89 L (150-450) k/uL Lymphocytes # 0.6 L (1.0-4.8) k/uL Glucose (74-99) mg/dL POC Glucose (mg/dL) 115 H 197 H (75-99) mg/dL AST (14-36) U/L Alkaline Phosphatase (38-126) U/L Total Protein (6.3-8.2) g/dL Albumin (3.5-5.0) g/dL 02/08/18 02/08/1802/08/18 Range/Units 07:12 09:02 10:12 RBC (3.80-5.40) m/uL Hgb (11.4-16.0) gm/dL Hct (34.0-46.0) % Plt Count (150-450) k/uL Lymphocytes # (1.0-4.8) k/uL Glucose (74-99) mg/dL POC Glucose (mg/dL) 181 H 298 H 256 H (75-99) mg/dL AST (14-36) U/L Alkaline Phosphatase (38-126) U/L Total Protein (6.3-8.2) g/dL Albumin (3.5-5.0) g/dL 02/08/18 Range/Units 11:11 RBC (3.80-5.40) m/uL Hgb (11.4-16.0) gm/dL Hct (34.0-46.0) % Plt Count (150-450) k/uL Lymphocytes # (1.0-4.8) k/uL Glucose (74-99) mg/dL POC Glucose (mg/dL) 195 H (75-99) mg/dL AST (14-36) U/L Alkaline Phosphatase (38-126) U/L Total Protein (6.3-8.2) g/dL Albumin (3.5-5.0) g/dL Assessment and Plan Plan: #1. Symptomatic coronary artery disease, with 80% left main stenosis, diffuse RCA disease at 70%, 75% circumflex lesion, 70% proximal LAD, and mid LAD up to 95%. That is post 2 vessel coronary artery bypass grafting, with ZELAYA to LAD, and SVG to the OM, postop day 2. The patient is recovering from surgery. The patient is using incentive spirometer. The patient is on 2 L of oxygen by nasal cannula. Hemodynamically stable on no pressors. Patient has a mediastinal and the left pleural chest tube. The mediastinal chest tube will be removed today. Chest x-ray shows some limited atelectatic changes in lung bases bilaterally. #2. Routine postoperative ventilator management, the patient was extubated without any major difficulties #3. Blood loss anemia, an expected outcome of surgery, hemoglobin is stable for now at 8.2 #4. Diabetes mellitus type 2 #5. Hypertension #6. Hyperlipidemia #7. Depression #8. History of right breast cancer, status post lumpectomy and radiation, in 2006. Most recent mammogram was reportedly within normal limits. #9. Remote smoking history, quit smoking at age of 21, smoked a pack a day for 6 years #10. Pulmonary hypertension Plan Remove the mediastinal chest tube. Keep the pleural chest tube in place and monitor the output. Incentive spirometer. Continue aspirin, Plavix, beta blockers and statins. Ambulate the patient in the hallway. Adequate pain control. She'll be receiving a at a milligram of IV Lasix dose. She may be transferred to telemetry today. Chapin-Sweetie catheter has been removed. We'll follow.
[2018-02-08 12:15] LABS: Glucose,Whole Blood 139 mg/dL (75-99)
[2018-02-08] MEDS: INSULIN ASPART 100 UNIT/ML 1 ML 10 ML VIAL SQ SCH ×6 (13:04→21:48)
[2018-02-08] MEDS: CLEVIDIPINE BUTYRATE 25 MG in EMPTY BAG 1 BAG IV SCH (14:45)
[2018-02-08] MEDS: NITROGLYCERIN-D5W PMX 50 MG in DEXTROSE/WATER 1 250ML.BAG IV SCH (14:45)
[2018-02-08 16:58] LABS: Glucose,Whole Blood 239 mg/dL (75-99)
[2018-02-08] MEDS ORDERED: INSULIN ASPART 100 UNIT/ML 1 ML 10 ML VIAL SQ ONE (17:12)
[2018-02-08] MEDS: FERROUS SULFATE 325 MG TAB PO SCH (17:20)
[2018-02-08 20:27] LABS: Glucose,Whole Blood 252 mg/dL (75-99)
--- NOTE | 2018-02-08 20:36 | PN ---
PROGRESS NOTE This patient is status post coronary artery bypass surgery. The patient is feeling fairly well. She is sitting up in a chair without any respiratory distress. The pain is fairly well-controlled and oxygen saturation is well-maintained. PHYSICAL EXAMINATION: Reveals a 72-year-old female who is in not in any respirations distress. HEART: First and second heart sounds are normal. Lungs reveal bilateral diminished air entry. EXTREMITIES: There is no evidence of any leg edema. Patient's hemoglobin is 8.6. Electrolytes are normal. Creatinine is 0.64. The patient's blood sugar is 239. We will continue the current medications. MMODL / IJN: [id number] /
[2018-02-08] MEDS ORDERED: INSULIN DETEMIR 100 UNIT/ML 10 ML VIAL SQ STA (21:36)
[2018-02-08] MEDS: SENNOSIDES-DOCUSATE SODIUM 1 EACH TAB PO SCH (21:47)
[2018-02-08] MEDS: ATORVASTATIN 40 MG TAB PO SCH (21:48)
[2018-02-09 01:47] LABS: Glucose,Whole Blood 222 mg/dL (75-99)
[2018-02-09] MEDS: HYDROcodone/APAP 5-325MG 1 EACH TAB PO PRN ×3 (02:13→21:03)
[2018-02-09 05:01] LABS: Basophils % (A) 0 %; Eosinophils # (A) 0.1 k/uL (0-0.7); Eosinophils % (A) 1 %; HCT 25.6 % (34.0-46.0); HGB 8.7 gm/dL (11.4-16.0); Lymphocytes # (A) 0.5 k/uL (1.0-4.8); Lymphocytes % (A) 8 %; MCH 32.5 pg (25.0-35.0); MCHC 34.1 g/dL (31.0-37.0); MCV 95.3 fL (80.0-100.0); Mean Platelet Volume 7.5; Monocytes # (A) 0.4 k/uL (0-1.0); Monocytes % (A) 6 %; Neutrophils % (A) 84 %; Platelet Count 106 k/uL (150-450); RBC 2.69 m/uL (3.80-5.40); RDW 14.8 % (11.5-15.5); WBC 7.2 k/uL (3.8-10.6)
[2018-02-09 05:20] LABS: ALT 44 U/L (9-52); AST 30 U/L (14-36); Albumin 3.4 g/dL (3.5-5.0); Alkaline Phosphatase 42 U/L (38-126); Anion Gap 6 mmol/L; Blood Urea Nitrogen 17 mg/dL (7-17); Calcium 8.9 mg/dL (8.4-10.2); Carbon Dioxide 25 mmol/L (22-30); Chloride 102 mmol/L (98-107); Glucose 215 mg/dL (74-99); Magnesium 2.1 mg/dL (1.6-2.3); Potassium 5.3 mmol/L (3.5-5.1); Sodium 133 mmol/L (137-145); Total Bilirubin 0.6 mg/dL (0.2-1.3); Total Protein 5.2 g/dL (6.3-8.2)
[2018-02-09 07:24] LABS: Glucose,Whole Blood 234 mg/dL (75-99)
[2018-02-09] MEDS ORDERED: PANTOPRAZOLE 40 MG TABLET PO SCH (07:30)
--- NOTE | 2018-02-09 07:58 | XR ---
EXAMINATION TYPE: XR chest 1V portable DATE OF EXAM: 02/09/2018 HISTORY: post cardiac surgery. REFERENCE: Previous study dated 02/08/2018. FINDINGS: There is been a midline sternotomy. The patient's right internal jugular sheath has been re moved. A left pleural drain remains in place. There is bibasilar airspace disease, unchanged from previous. There are small, bilateral effusions. H eart size is upper limits of normal. IMPRESSION: CONTINUING BIBASILAR AIRSPACE DISEASE AND SMALL, BILATERAL EFFUSIONS, UNCHANGED FROM PREVIOUS.
--- NOTE | 2018-02-09 08:18 | P.PN ---
Subjective Progress Note Date: 02/09/18 Mrs. Acuña is a 72-year-old white female patient of Dr. Pranav Doe, who was brought in for cardiac catheterization today on 02/04/2018, following up positive stress test at [facility]. Patient has been having substernal chest pain, with bilateral arm heaviness, and ringing in her ears on and off since November. She states her symptoms would be brought after eating, and physical exertion like walking. Relieved with rest, and deep breathing. Lately her symptoms were also accompanied by sweating. Her PCP referred her to cardiology, she underwent exercise stress test on 02/03/2018, and she had chest pain, diaphoresis, significant infero-apical ST segment depression, and she was scheduled for cardiac catheterization today, which showed 70-80% left main lesion, 80% lesion in the circumflex, obtuse marginal that was mid and proximal LAD. The RCA was diffusely diseased, but was nondominant. There was a less than 10 mm gradient across the aortic valve. Lab work showed WBC of 4.2, hemoglobin of 11.7, electrolytes and renal profile were essentially normal, magnesium was 1.3, LFTs were normal. Past medical history is positive for hypertension, diabetes mellitus type 2, hyperlipidemia, depression, remote and brief smoking history, back surgery, breast cancer in 2005, status post lumpectomy and radiation. Most recent mammogram from December 2017 was normal. Echocardiogram showed mild to moderate aortic stenosis with mean gradient of 15 mmHg, mild pulmonary hypertension, concentric LVH and left atrial enlargement, ejection fraction of 55%. Patient was referred to cardiothoracic surgery and she was recommended surgical revascularization to which she agreed. Her surgery is scheduled for 02/06/[address] Alvarado. On 02/05/2018, the patient is calm and comfortable free of any chest resting in bed. No respiratory difficulties. Review the CAT scan of the chest and there is no acute abnormalities. The spirometry shows preserved FEV1 at 82%. She is hemodynamically stable. The patient is awaiting her cardiac surgery and bypass for tomorrow. No nausea. No vomiting. No altered mentation. No other complaints otherwise for now. On 02/06/2018 patient seen in follow-up in intensive care, she is status post two-vessel coronary artery bypass grafting, ZELAYA to LAD and SVG to the up to his marginal. She is sedated, on mechanical ventilation, on on SIMV mode of ventilation, with a rate of 12, 400 tidal volume, FiO2 of 100%, and PEEP of 5. Postop blood gases were reviewed, showed pO2 131, pCO2 of 48.5, and pH of 7.3. She was placed on assist-control mode of ventilation, with a rate of 18, tidal vital 500, FiO2 100% and PEEP of 5. Patient's O2 sat is 100%, and FiO2 was dropped to 80%. Venous IV drips is LR at a rate of 50 ML per hour, clevidipine at 1 mg per hour, nitroglycerin at 5 mics per minute, and Diprivan 25 mcg/kg/ min. she is hemodynamically stable, cardiac outputs and cardiac index are 5.9, and 3.3. PA pressures of 51/27, with a map of 39. CVP is 21. Patient is in sinus rhythm, AV wires are present, external pacemaker with backup rate of VVI 40 Bpm. Postop blood work shows a VC of 4.6, hemoglobin of 7.4, INR is 1.4, sodium is 140, potassium is 4.5, chloride is 110, renal profile is within normal limits. Postop chest x-ray has been reviewed by Dr. Harper, and shows stop changes with lines and tubes, and a new postoperative patchy retrocardiac atelectasis. Indwelling catheter is present, and patient is nonoliguric. 2 mediastinal and one left pleural chest tube are present, there is 40 mL of sanguinous output from the mediastinal, and 30 mL out of the left pleural chest tubes. On 02/07/2018 patient seen in follow-up in the intensive care unit, this is postop day 1, status post two-vessel coronary artery bypass grafting, ZELAYA to LAD and SVG to the obtuse marginal. Patient extubated yesterday at 1829, on 08/2017. Currently she is awake, alert, sitting up in the chair, currently on room air, on 2 L her pulse ox was 96%, denies any dyspnea, her pain is reasonably controlled, vital signs are stable, blood pressures 122/47, pO2 is 53 /24, cardiac output and index is 5.2 and 2.9. Current drips include lactated Ringer's at a rate of 50 ML per hour, nitroglycerin at 5 mics per minute, and insulin drip at 3.5 units per hour. Lung sounds are clear, diminished at the bases, no rhonchi, no rales noted. Patient is in sinus rhythm, with a rate of 85 bpm, AV wires are present, external pacemaker on backup rate. There has been 460 mL of serosanguineous output from the mediastinal chest tube, and about 450 out of the left pleural. No air leak noted. Surgeons are clean dry and intact. Today's chest x-ray has been reviewed. It shows new right basilar opacity post extubation this could represent atelectasis. Incentive spirometry effort is 750-1000 ML today. Patient received a unit of packed red blood cells yesterday in the postoperative period, and today's labs show hemoglobin of 8.2, platelet count of 75, electrolytes and renal profile are normal. On 02/08/2018 and seeing this patient for a follow-up. The patient is postop day #2. She is doing extremely well. She has no respiratory difficulties. She is using incentive spirometer. She is postop day #2. No nausea. No vomiting. No chest pain. The patient is producing adequate amount of urine output. The output from the mediastinal chest tube is low at 60 mL over the past 24 hours and output from the left pleural chest tube is around 550 mL over the past 24 hours. No evidence of any air leak. Chest x-ray shows some limited bibasilar pulmonary infiltration. No evidence of any pneumothorax. The Troy-Sweetie catheter was removed this morning. She is on no pressors. She is on insulin drip for blood sugar control. Cardiac rhythm is sinus with occasional PACs. On 02/09/2018 I'm seeing this patient for a follow-up. The patient is in well and she is ambulating. She has no specific complaints. The mediastinum tube was taken out yesterday. The patient has a pleural chest tube which shows an output of 150 mL over the past 12 hours. Hemodynamically stable on no pressors pH is currently on room air oxygen and the pulse ox is around 92%. Pain is under good control and the patient is requiring [place] on and off for pain control. No other significant events overnight. She is on Levemir insulin along with a sliding scale coverage. The blood sugars in the 200s and the Levemir dose was increased up to 25 units. Otherwise rest of the blood work is within normal limits. The chest x-ray from today shows some limited bibasilar airspace disease and small bilateral pleural effusion unchanged from yesterday' s examination. Left pleural chest tube remains in place. Objective - Vital Signs Vital signs: Vital Signs Temp 98.9 F 02/09/18 04:00 Pulse 73 02/09/18 07:00 Resp 15 02/09/18 07:00 BP 106/51 02/09/18 07:00 Pulse Ox 93 L 02/09/18 07:00 Intake & Output 02/08/18 02/09/18 02/09/18 18:59 06:59 18:59 Intake Total 275.862 0 Output Total 1205 1150 Balance -929.138 -1150 Weight 79.6 kg 79.8 kg Intake: IV 242 0 Lactated Ringers 1,000 ml 200 0 @ 20 mls/hr IV .Q24H TORIBIO Rx#:[id number] Pressure Bag 42 Intake, IV Titration 33.862 Amount Insulin Regular 100 unit 33.862 In Sodium Chloride 0.9% 100 ml @ Per Protocol IV .Q0M TORIBIO Rx#:[id number] Output: Chest Tube Drainage 190 150 Left Pleural 120 150 Mediastinal 70 Urine 1015 1000 Other: Voiding Method Indwelling Catheter # Voids 1 # Bowel Movements 1 ABP, PAP, CO, CI - Last Documented Arterial Blood Pressure 121/56 Pulmonary Artery Pressure 92/63 Cardiac Output 5.2 Cardiac Index 2.0 - Exam GENERAL EXAM: 72-year-old white female, awake, alert, oriented 3 HEAD: Normocephalic/atraumatic. EYES: Normal reaction of pupils, equal size. Conjunctiva pink, sclera white. NOSE: Clear with pink turbinates. THROAT: No erythema or exudates. NECK: No masses, no JVD, no thyroid enlargement, no adenopathy. The cordis is out CHEST: No chest wall deformity. Symmetrical expansion. Midsternal incision is clean dry and intact, covered with surgical dressing, 1 mediastinal and one left pleural chest tube are present, with serosanguinous output in the pleura- vac, AV wires to external pacemaker with a backup rate of 40 BPM LUNGS: Equal air entry, diminished breath sounds at the bases CVS: Regular rate and rhythm, normal S1 and S2, no gallops, no murmurs, no rubs ABDOMEN: Soft, nontender. No hepatosplenomegaly, normal bowel sounds, no guarding or rigidity. EXTREMITIES: No clubbing, no edema, no cyanosis, 2+ pulses and upper and left lower extremity. Right groin puncture is clean dry and intact, soft. Bilateral lower extremities, with Jose wraps, SCDs on MUSCULOSKELETAL: Muscle strength and tone normal. SPINE: No scoliosis or deformity SKIN: No rashes CENTRAL NERVOUS SYSTEM: No focal neurological deficits. PSYCHIATRIC: Intact judgment and insight - Labs CBC & Chem 7: 02/09/18 04:41 02/09/18 04:41 Labs: Abnormal Lab Results - Last 24 Hours (Table) 02/08/18 02/08/18 02/08/18 Range/Units 09:02 10:12 11:11 RBC (3.80-5.40) m/uL Hgb (11.4-16.0) gm/dL Hct (34.0-46.0) % Plt Count (150-450) k/uL Lymphocytes # (1.0-4.8) k/uL Sodium (137-145) mmol/L Potassium (3.5-5.1) mmol/L Glucose (74-99) mg/dL POC Glucose (mg/dL) 298 H 256 H 195 H (75-99) mg/dL Total Protein (6.3-8.2) g/dL Albumin (3.5-5.0) g/dL 02/08/18 02/08/18 02/08/18 Range/Units 12:14 16:56 20:24 RBC (3.80-5.40) m/uL Hgb (11.4-16.0) gm/dL Hct (34.0-46.0) % Plt Count (150-450) k/uL Lymphocytes # (1.0-4.8) k/uL Sodium (137-145) mmol/L Potassium (3.5-5.1) mmol/L Glucose (74-99) mg/dL POC Glucose (mg/dL) 139 H 239 H 252 H (75-99) mg/dL Total Protein (6.3-8.2) g/dL Albumin (3.5-5.0) g/dL 02/09/18 02/09/18 02/09/18 Range/Units 01:44 04:41 04:41 RBC 2.69 L (3.80-5.40) m/uL Hgb 8.7 L (11.4-16.0) gm/dL Hct 25.6 L (34.0-46.0) % Plt Count 106 L (150-450) k/uL Lymphocytes # 0.5 L (1.0-4.8) k/uL Sodium 133 L (137-145) mmol/L Potassium 5.3 H (3.5-5.1) mmol/L Glucose 215 H (74-99) mg/dL POC Glucose (mg/dL) 222 H (75-99) mg/dL Total Protein 5.2 L (6.3-8.2) g/dL Albumin 3.4 L (3.5-5.0) g/dL 02/09/18 Range/Units 07:20 RBC (3.80-5.40) m/uL Hgb (11.4-16.0) gm/dL Hct (34.0-46.0) % Plt Count (150-450) k/uL Lymphocytes # (1.0-4.8) k/uL Sodium (137-145) mmol/L Potassium (3.5-5.1) mmol/L Glucose (74-99) mg/dL POC Glucose (mg/dL) 234 H (75-99) mg/dL Total Protein (6.3-8.2) g/dL Albumin (3.5-5.0) g/dL Assessment and Plan Plan: #1. Symptomatic coronary artery disease, with 80% left main stenosis, diffuse RCA disease at 70%, 75% circumflex lesion, 70% proximal LAD, and mid LAD up to 95%. That is post 2 vessel coronary artery bypass grafting, with ZELAYA to LAD, and SVG to the OM, postop day 3. The mediastinal tube was removed. The pleural chest tube may possibly get it removed also today. Hemodynamically stable on no pressors. Ambulating. She may be moved to [facility] for further monitoring. #2. Routine postoperative ventilator management, the patient was extubated without any major difficulties #3. Blood loss anemia, an expected outcome of surgery, hemoglobin is stable for now at 8.7 #4. Diabetes mellitus type 2 , on Levemir insulin #5. Hypertension #6. Hyperlipidemia #7. Depression #8. History of right breast cancer, status post lumpectomy and radiation, in 2006. Most recent mammogram was reportedly within normal limits. #9. Remote smoking history, quit smoking at age of 21, smoked a pack a day for 6 years #10. Pulmonary hypertension Plan We'll discuss with surgery the possibility of removing the left pleural chest tube. Transfer this patient to [facility]. Continue aspirin, continue Plavix, continue beta blockers, continue statins. Rhythm is sinus. Pain is under good control. Continue using incentive spirometer. We'll continue to follow.
[2018-02-09] MEDS ORDERED: FUROSEMIDE 10 MG/ML 2 ML VIAL IV ONE (08:36)
[2018-02-09] MEDS: INSULIN ASPART 100 UNIT/ML 1 ML 10 ML VIAL SQ SCH ×9 (08:37→22:28)
[2018-02-09] MEDS: FERROUS SULFATE 325 MG TAB PO SCH ×2 (08:37→18:01)
[2018-02-09] MEDS: ASPIRIN 81 MG PO SCH ×2 (08:38→22:28)
[2018-02-09] MEDS: FLUoxetine HCL 20 MG CAP PO SCH (08:38)
[2018-02-09] MEDS: CLOPIDOGREL 75 MG TAB PO SCH (08:38)
[2018-02-09] MEDS: PANTOPRAZOLE 40 MG TABLET PO SCH ×2 (08:38→22:28)
[2018-02-09] MEDS: MUPIROCIN 2% OINT 22 GM TUBE NASAL SCH ×3 (08:40→22:28)
[2018-02-09] MEDS ORDERED: ACETAMINOPHEN TAB 325 MG TAB PO PRN ×2 (08:42)
[2018-02-09] MEDS: ASCORBIC ACID 500 MG TAB PO SCH ×2 (08:44→18:01)
[2018-02-09] MEDS: HEPARIN SODIUM,PORCINE 5,000 UNIT/ML 1 ML VIAL SQ SCH ×2 (08:45→18:02)
--- NOTE | 2018-02-09 08:45 | P.PN ---
Subjective Progress Note Date: 02/09/18 Principal diagnosis: Triple-vessel coronary artery disease with left main disease. Mild to moderate aortic stenosis, grade 3 diastolic dysfunction, mild mitral regurgitation, mild tricuspid regurgitation. Mild thrombocytopenia. Previous medical history of hypertension, diabetes mellitus, hyperlipidemia, pulmonary hypertension, depression, previous tobacco dependence with preoperative FEV1 82% of predicted , back surgery, and breast cancer with lumpectomy and radiation in 2006. POD #3 urgent coronary artery bypass graft 2 vessels, left internal mammary artery to left anterior descending coronary artery, reverse saphenous vein graft to obtuse marginal artery. Endoscopic vein harvest right greater saphenous vein. Epi-aortic ultrasound, intraoperative transesophageal echocardiogram. Postoperative normocytic, normochromic anemia, an expected outcome of surgery. Postoperative thrombocytopenia, expected outcome of surgery. Patient's currently sitting up in chair in no acute distress. States pain is controlled with current medication regimen. Denies shortness of breath. No new concerns. Patient is hemodynamically stable. She ambulated in the hallway yesterday. Transfer orders were placed yesterday to send patient to [facility]. but no beds are available. Mediastinal chest tube was discontinued yesterday, Harp was discontinued. Objective - Vital Signs Vital signs: Vital Signs Temp 98.9 F 02/09/18 04:00 Pulse 69 02/09/18 08:00 Resp 12 02/09/18 08:00 BP 93/49 02/09/18 08:00 Pulse Ox 93 L 02/09/18 08:00 Intake & Output 02/08/18 02/09/18 02/09/18 18:59 06:59 18:59 Intake Total 275.862 0 Output Total 1205 1150 Balance -929.138 -1150 Weight 79.6 kg 79.8 kg Intake: IV 242 0 Lactated Ringers 1,000 ml 200 0 @ 20 mls/hr IV .Q24H TORIBIO Rx#:[id number] Pressure Bag 42 Intake, IV Titration 33.862 Amount Insulin Regular 100 unit 33.862 In Sodium Chloride 0.9% 100 ml @ Per Protocol IV .Q0M TORIBIO Rx#:[id number] Output: Chest Tube Drainage 190 150 Left Pleural 120 150 Mediastinal 70 Urine 1015 1000 Other: Voiding Method Indwelling Catheter # Voids 1 # Bowel Movements 1 ABP, PAP, CO, CI - Last Documented Arterial Blood Pressure 121/56 Pulmonary Artery Pressure 92/63 Cardiac Output 5.2 Cardiac Index 2.0 - Constitutional General appearance: Present: cooperative, no acute distress - Respiratory Details: Lungs sounds diminished bilaterally, faint expiratory wheezes heard. Respirations even, nonlabored. Currently on room air with oxygen saturation 92% . Able to achieve 1250 mL on her incentive spirometry. Effective cough. Left pleural chest tube to continuous wall suction, 120 mL serous drainage overnight , 300 mL in the last 24 hours. No air leaks present. - Cardiovascular Details: S1, S2 present. Regular rate and rhythm, sinus rhythm on telemetry. Sternum stable. A/V epicardial pacemaker wires present, grounded. Palpable peripheral pulses bilaterally. No edema present. No calf pain or tenderness noted. Heart hugger in place with patient demonstrating appropriate use. Antiembolism stockings, SCDs present. - Gastrointestinal Gastrointestinal Comment(s): Abdomen soft, nontender, nondistended. Active bowel sounds present 4 quadrants. Tolerating diet. Positive bowel movement. - Genitourinary Genitourinary Comment(s): Harp discontinued yesterday. Patient continues to void clear, yellow urine, output 600 mL overnight. - Integumentary Integumentary Comment(s): Skin is warm and dry with evidence of good perfusion. Anterior chest incision well approximated and covered with dry intact dressing. Right lower extremity EVH site well approximated. - Neurologic Neurologic: Present: CNII-XII intact - Musculoskeletal Musculoskeletal: Present: gait normal, strength equal bilaterally - Psychiatric Psychiatric: Present: A&O x's 3, appropriate affect, intact judgment & insight - Allied health notes Allied health notes reviewed: nursing - Labs CBC & Chem 7: 02/09/18 04:41 02/09/18 04:41 Labs: Abnormal Lab Results - Last 24 Hours (Table) 02/08/18 02/08/18 02/08/18 Range/Units 09:02 10:12 11:11 RBC (3.80-5.40) m/uL Hgb (11.4-16.0) gm/dL Hct (34.0-46.0) % Plt Count (150-450) k/uL Lymphocytes # (1.0-4.8) k/uL Sodium (137-145) mmol/L Potassium (3.5-5.1) mmol/L Glucose (74-99) mg/dL POC Glucose (mg/dL) 298 H 256 H 195 H (75-99) mg/dL Total Protein (6.3-8.2) g/dL Albumin (3.5-5.0) g/dL 02/08/18 02/08/18 02/08/18 Range/Units 12:14 16:56 20:24 RBC (3.80-5.40) m/uL Hgb (11.4-16.0) gm/dL Hct (34.0-46.0) % Plt Count (150-450) k/uL Lymphocytes # (1.0-4.8) k/uL Sodium (137-145) mmol/L Potassium (3.5-5.1) mmol/L Glucose (74-99) mg/dL POC Glucose (mg/dL) 139 H 239 H 252 H (75-99) mg/dL Total Protein (6.3-8.2) g/dL Albumin (3.5-5.0) g/dL 02/09/18 02/09/18 02/09/18 Range/Units 01:44 04:41 04:41 RBC 2.69 L (3.80-5.40) m/uL Hgb 8.7 L (11.4-16.0) gm/dL Hct 25.6 L (34.0-46.0) % Plt Count 106 L (150-450) k/uL Lymphocytes # 0.5 L (1.0-4.8) k/uL Sodium 133 L (137-145) mmol/L Potassium 5.3 H (3.5-5.1) mmol/L Glucose 215 H (74-99) mg/dL POC Glucose (mg/dL) 222 H (75-99) mg/dL Total Protein 5.2 L (6.3-8.2) g/dL Albumin 3.4 L (3.5-5.0) g/dL 02/09/18 Range/Units 07:20 RBC (3.80-5.40) m/uL Hgb (11.4-16.0) gm/dL Hct (34.0-46.0) % Plt Count (150-450) k/uL Lymphocytes # (1.0-4.8) k/uL Sodium (137-145) mmol/L Potassium (3.5-5.1) mmol/L Glucose (74-99) mg/dL POC Glucose (mg/dL) 234 H (75-99) mg/dL Total Protein (6.3-8.2) g/dL Albumin (3.5-5.0) g/dL - Imaging and Cardiology Chest x-ray: report reviewed, image reviewed Assessment and Plan (1) Coronary artery disease involving left main coronary artery Current Visit: Yes Status: Chronic Code(s): I25.10 - ATHSCL HEART DISEASE OF [place] CORONARY ARTERY W/O ANG PCTRS SNOMED Code(s): 227136243 (2) Hypertension Current Visit: Yes Status: Chronic Code(s): I10 - ESSENTIAL (PRIMARY) HYPERTENSION SNOMED Code(s): 42321651 (3) Hyperlipidemia Current Visit: Yes Status: Chronic Code(s): E78.5 - HYPERLIPIDEMIA, UNSPECIFIED SNOMED Code(s): 31888390 (4) Diabetes mellitus Current Visit: Yes Status: Chronic Code(s): E11.9 - TYPE 2 DIABETES MELLITUS WITHOUT COMPLICATIONS SNOMED Code(s): 03002867 (5) Pulmonary hypertension Current Visit: Yes Status: Chronic Code(s): I27.20 - PULMONARY HYPERTENSION , UNSPECIFIED SNOMED Code(s): 37033583 (6) Chronic diastolic heart failure Current Visit: Yes Status: Chronic Code(s): I50.32 - CHRONIC DIASTOLIC ( CONGESTIVE) HEART FAILURE SNOMED Code(s): 683706945 (7) Depression Current Visit: Yes Status: Chronic Code(s): F32.9 - MAJOR DEPRESSIVE DISORDER, SINGLE EPISODE, UNSPECIFIED SNOMED Code(s): 62937822 (8) History of breast cancer Current Visit: No Status: Resolved Code(s): Z85.3 - PERSONAL HISTORY OF MALIGNANT NEOPLASM OF BREAST SNOMED Code(s): 580173924 (9) History of lumpectomy of right breast Current Visit: No Status: Resolved Code(s): Z98.890 - OTHER SPECIFIED POSTPROCEDURAL STATES SNOMED Code(s): 809587869 (10) History of radiation therapy Current Visit: No Status: Resolved Code(s): Z92.3 - PERSONAL HISTORY OF IRRADIATION SNOMED Code(s): 660738049 (11) Tobacco dependence in remission Current Visit: No Status: Resolved Code(s): F17.201 - NICOTINE DEPENDENCE, UNSPECIFIED, IN REMISSION SNOMED Code(s): 887984424 Plan: 1. Continue low dose aspirin, statin, Plavix, beta stiven, heparin SQ. Will increase beta stiven therapy as tolerated. 2. Encourage incentive spirometry use 10 times every hour. 3. Increase activity, ambulate in hallway. PT/OT/cardiac rehab following. 4. Will monitor daily labs and x-rays. No need for further transfusions at this point. 5. GI/DVT prophylaxis. 6. Pain medication with ordered medication regimen. Plain Tylenol added, discussed pain medication administration with patient. 7. Insulin/diabetic management per primary care service. diabetes educator consulted as patient will likely go home with insulin. 8. Bronchodilators per pulmonology. 9. Will give Lasix 20 mg IV push 1 today. 10. Will discontinue left pleural chest tube today. 11. Patient may be transferred to [address] [place] [address] care when bed available. 12. Discharge planning in progress. Still waiting on input from occupational therapy, however anticipate discharge to home with home care in the next 24-48 hours. 13. More recommendations to follow. Time with Patient: Greater than 30
[2018-02-09] MEDS: IPRATROPIUM-ALBUTEROL 3 ML NEB INHALATION SCH ×4 (08:47→19:41)
[2018-02-09] MEDS: metFORMIN 500 MG TAB PO SCH ×2 (08:59→18:01)
[2018-02-09] MEDS ORDERED: INSULIN DETEMIR 100 UNIT/ML 10 ML VIAL SQ ONE (09:00)
[2018-02-09] MEDS: METOPROLOL TARTRATE 25 MG TAB PO SCH ×2 (10:36→21:33)
--- NOTE | 2018-02-09 11:14 | P.PN ---
Subjective Progress Note Date: 02/09/18 Principal diagnosis: chest pain Patient is a 72-year-old female with a complex medical history including diabetes mellitus type 2 with neuropathy managed on oral medications, hypertension, dyslipidemia, GERD, pulmonary hypertension, diastolic dysfunction , and depression who presented for an elective outpatient cardiac catheterization. Initially she had seen Dr. Leigh in the office and had a stress test performed. During her stress test she was noted to have EKG changes consistent with anterior apical and inferior lateral reversible defect. She developed her chest pain symptoms and received a nitroglycerin. She subsequently underwent cardiac catheterization on the morning of 02/04 which showed disease in the left main, RCA, circumflex, and LAD. She was subsequently placed on a heparin drip and admitted to the ICU. Dr. Alvarado from cardiothoracic surgery was consulted for regarding revascularization recommendations. Preoperative testing was started on 02/04/18. On the morning of 02/06 she underwent two-vessel bypass grafting with left internal mammary artery to the LAD and saphenous vein graft to the obtuse marginal. She was admitted to the ICU sedated on the ventilator. Intraoperatively she received 1 unit of packed red blood cells. She was extubated on 02/06 and had no acute events over night. Her Blood sugar continued to be elevated despite insulin gtt and levemir was started the morning of 02/08 in hope of getting her off insulin gtt while maintaining BS <180. Transitioned off insulin gtt on 02/08 despite aggressive use of long and short activing insulin her BS remained elevated. Patient seen and examined at bedside. Still having some pain across the chest worse with deep breathing and movement. No shortness of breath. Frustrated because she is concerned that her diet has too many carbs still. D/W patient that she will need insulin at discharge at least in the short term. She is in agreement with plan. She will also try to choose better foods today. No BM yesterday. No nausea, vomitint. Feeling well and wants to be discharged tomorrow. Objective - Vital Signs Vital signs: Vital Signs Temp 98.9 F 02/09/18 04:00 Pulse 73 02/09/18 07:00 Resp 15 02/09/18 07:00 BP 106/51 02/09/18 07:00 Pulse Ox 93 L 02/09/18 07:00 Intake & Output 02/08/18 02/09/18 02/09/18 18:59 06:59 18:59 Intake Total 275.862 0 Output Total 1205 1150 Balance -929.138 -1150 Weight 79.6 kg 79.8 kg Intake: IV 242 0 Lactated Ringers 1,000 ml 200 0 @ 20 mls/hr IV .Q24H [facility] Rx#:[id number] Pressure Bag 42 Intake, IV Titration 33.862 Amount Insulin Regular 100 unit 33.862 In Sodium Chloride 0.9% 100 ml @ Per Protocol IV .Q0M [facility] Rx#:[id number] Output: Chest Tube Drainage 190 150 Left Pleural 120 150 Mediastinal 70 Urine 1015 1000 Other: Voiding Method Indwelling Catheter # Voids 1 # Bowel Movements 1 ABP, PAP, CO, CI - Last Documented Arterial Blood Pressure 121/56 Pulmonary Artery Pressure 92/63 Cardiac Output 5.2 Cardiac Index 2.0 - Exam General: No distress, ill-appearing, appears at stated age Derm: warm, dry, Midline incision with dressing in place. Head: atraumatic, normocephalic, symmetric Eyes: EOMI, no lid lag, anicteric sclera Mouth: no lip lesion, mucus membranes moist Cardiovascular: S1S2 reg with murmur Lungs: Coarse breath sounds bilateral, no rhonchi, no rales , no accessory muscle use, chest tube in place Abdominal: soft, nontender to palpation, no guarding, no appreciable organomegaly Ext: no gross muscle atrophy, no edema, no contractures Neuro: CN II-XII grossly intact, No gross neuro deficits Psych: Awake, alert, appropriate affect - Labs CBC & Chem 7: 02/09/18 04:41 02/09/18 04:41 Labs: Abnormal Lab Results - Last 24 Hours (Table) 02/08/18 02/08/18 02/08/18 Range/Units 09:02 10:12 11:11 RBC (3.80-5.40) m/uL Hgb (11.4-16.0) gm/dL Hct (34.0-46.0) % Plt Count (150-450) k/uL Lymphocytes # (1.0-4.8) k/uL Sodium (137-145) mmol/L Potassium (3.5-5.1) mmol/L Glucose (74-99) mg/dL POC Glucose (mg/dL) 298 H 256 H 195 H (75-99) mg/dL Total Protein (6.3-8.2) g/dL Albumin (3.5-5.0) g/dL 02/08/18 02/08/18 02/08/18 Range/Units 12:14 16:56 20:24 RBC (3.80-5.40) m/uL Hgb (11.4-16.0) gm/dL Hct (34.0-46.0) % Plt Count (150-450) k/uL Lymphocytes # (1.0-4.8) k/uL Sodium (137-145) mmol/L Potassium (3.5-5.1) mmol/L Glucose (74-99) mg/dL POC Glucose (mg/dL) 139 H 239 H 252 H (75-99) mg/dL Total Protein (6.3-8.2) g/dL Albumin (3.5-5.0) g/dL 02/09/18 02/09/18 02/09/18 Range/Units 01:44 04:41 04:41 RBC 2.69 L (3.80-5.40) m/uL Hgb 8.7 L (11.4-16.0) gm/dL Hct 25.6 L (34.0-46.0) % Plt Count 106 L (150-450) k/uL Lymphocytes # 0.5 L (1.0-4.8) k/uL Sodium 133 L (137-145) mmol/L Potassium 5.3 H (3.5-5.1) mmol/L Glucose 215 H (74-99) mg/dL POC Glucose (mg/dL) 222 H (75-99) mg/dL Total Protein 5.2 L (6.3-8.2) g/dL Albumin 3.4 L (3.5-5.0) g/dL 02/09/18 Range/Units 07:20 RBC (3.80-5.40) m/uL Hgb (11.4-16.0) gm/dL Hct (34.0-46.0) % Plt Count (150-450) k/uL Lymphocytes # (1.0-4.8) k/uL Sodium (137-145) mmol/L Potassium (3.5-5.1) mmol/L Glucose (74-99) mg/dL POC Glucose (mg/dL) 234 H (75-99) mg/dL Total Protein (6.3-8.2) g/dL Albumin (3.5-5.0) g/dL Assessment and Plan Assessment: 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 -A1c 7.9., on discharge plan for metformin 1000mg BID with insulin, off Amaryl and will resume as insulin improves, would also consider adding Januvia to no insulin regiment. Anemia secondary to acute blood loss as an expectorant and anticipated outcome of surgical procedure -Received 1 unit packed red blood cells in the OR -Follow CBC - start Ferrous sulfate BID X 30 day, bowel regiment in placed Thrombocytopenia, improving -Likely consumptive and reactive with surgery -Follow CBC HTN - lopressor - follow BP -Home atenolol, lisinopril and norvasc on hold postoperatively HLD - statin GERD -protonix Depression -effexor DVT prophylaxis: Heparin
[2018-02-09 11:54] LABS: Glucose,Whole Blood 200 mg/dL (75-99)
[2018-02-09 12:27] LABS: Glucose,Whole Blood 173 mg/dL (75-99)
[2018-02-09 17:24] LABS: Glucose,Whole Blood 168 mg/dL (75-99)
[2018-02-09 21:31] LABS: Glucose,Whole Blood 140 mg/dL (75-99)
[2018-02-09] MEDS: ATORVASTATIN 40 MG TAB PO SCH (21:33)
[2018-02-09] MEDS: SENNOSIDES-DOCUSATE SODIUM 1 EACH TAB PO SCH (21:33)
[2018-02-09] MEDS: ATORVASTATIN 80 MG TAB PO SCH (22:28)
[2018-02-09] MEDS: VENLAFAXINE HCL ER 75 MG CAP PO SCH (22:28)
[2018-02-09] MEDS: ATENOLOL 25 MG TAB PO SCH (22:28)
[2018-02-09] MEDS: CHOLECALCIFEROL 1,000 UNIT TAB PO SCH (22:28)
[2018-02-10] MEDS: HEPARIN SODIUM,PORCINE 5,000 UNIT/ML 1 ML VIAL SQ SCH ×2 (01:00→07:52)
[2018-02-10] MEDS: INSULIN ASPART 100 UNIT/ML 1 ML 10 ML VIAL SQ SCH ×6 (03:17→12:37)
[2018-02-10] MEDS: ASPIRIN 325 MG TAB PO SCH (03:20)
[2018-02-10 03:48] LABS: Glucose,Whole Blood 93 mg/dL (75-99)
[2018-02-10] MEDS: HYDROcodone/APAP 5-325MG 1 EACH TAB PO PRN (04:05)
[2018-02-10 04:43] LABS: Basophils % (A) 0 %; Eosinophils % (A) 1 %; HGB 8.3 gm/dL (11.4-16.0); Lymphocytes % (A) 18 %; MCH 31.3 pg (25.0-35.0); MCHC 33.3 g/dL (31.0-37.0); MCV 94.1 fL (80.0-100.0); Mean Platelet Volume 7.9; Monocytes # (A) 0.5 k/uL (0-1.0); Monocytes % (A) 9 %; Neutrophils # (A) 3.9 k/uL (1.3-7.7); Neutrophils % (A) 70 %; RBC 2.66 m/uL (3.80-5.40); RDW 14.5 % (11.5-15.5); WBC 5.5 k/uL (3.8-10.6)
[2018-02-10 04:47] LABS: Platelet Count 164 k/uL (150-450)
[2018-02-10 04:51] LABS: ALT 43 U/L (9-52); AST 21 U/L (14-36); Albumin 3.4 g/dL (3.5-5.0); Alkaline Phosphatase 38 U/L (38-126); Anion Gap 8 mmol/L; Blood Urea Nitrogen 17 mg/dL (7-17); Calcium 9.1 mg/dL (8.4-10.2); Carbon Dioxide 27 mmol/L (22-30); Chloride 102 mmol/L (98-107); Glucose 83 mg/dL (74-99); Magnesium 1.8 mg/dL (1.6-2.3); Potassium 4.7 mmol/L (3.5-5.1); Sodium 137 mmol/L (137-145); Total Bilirubin 0.6 mg/dL (0.2-1.3); Total Protein 5.2 g/dL (6.3-8.2)
[2018-02-10] MEDS: IPRATROPIUM-ALBUTEROL 3 ML NEB INHALATION SCH ×3 (07:17→11:04)
[2018-02-10 07:27] LABS: Glucose,Whole Blood 159 mg/dL (75-99)
[2018-02-10] MEDS: ASCORBIC ACID 500 MG TAB PO SCH (07:40)
[2018-02-10] MEDS: PANTOPRAZOLE 40 MG TABLET PO SCH (07:41)
[2018-02-10] MEDS: FERROUS SULFATE 325 MG TAB PO SCH (07:41)
[2018-02-10] MEDS: ASPIRIN 81 MG PO SCH (07:41)
[2018-02-10] MEDS: metFORMIN 500 MG TAB PO SCH (07:41)
[2018-02-10] MEDS: CLOPIDOGREL 75 MG TAB PO SCH ×2 (08:08→09:58)
[2018-02-10] MEDS: FLUoxetine HCL 20 MG CAP PO SCH ×2 (08:09→09:58)
[2018-02-10] MEDS: METOPROLOL TARTRATE 25 MG TAB PO SCH ×2 (08:09→09:58)
--- NOTE | 2018-02-10 08:41 | PN ---
PROGRESS NOTE This patient's vital signs and medical chart reviewed. Patient is status post coronary artery bypass surgery. Patient is doing fairly well and hemodynamically she remains stable. The patient is sitting comfortably in a chair without any respiratory distress. The patient is afebrile. Blood pressure is 101/52 mmHg. Heart rate is 87 per minute. First and second heart sounds are normal. Lungs reveal good air entry on both sides. Abdomen is soft. The patient's medications were reviewed. The patient's last hemoglobin was 8.7 and creatinine is 0.7. We will continue the current medications and patient will be transferred to the selective care unit. MMODL / IJN: [id number] /
--- NOTE | 2018-02-10 08:54 | XR ---
EXAMINATION TYPE: XR chest 2V DATE OF EXAM: 02/10/2018 COMPARISON: 02/09/2018 HISTORY: Status post cardiac surgery TECHNIQUE: Frontal and lateral views of the chest are obtained. FINDINGS: There is improved aeration of the right infrahilar region. Again there are trace bilateral pleural effusions, left intrafissural fluid, and bibasilar airspace disease (left greater than right but overall mild). Median sternotomy wires and mediastinal clips are again present with cardiomegaly . No pneumothorax or pulmonary vascular congestion are seen. Left thoracostomy tube has been removed in the interim. IMPRESSION: Removal of the left thoracostomy tube with no residual pneumothorax. Trace pleural effus ions and bibasilar subsegmental atelectasis remain.
--- NOTE | 2018-02-10 09:04 | P.PN ---
Subjective Progress Note Date: 02/10/18 Principal diagnosis: Triple-vessel coronary artery disease with left main disease. Mild to moderate aortic stenosis, grade 3 diastolic dysfunction, mild mitral regurgitation, mild tricuspid regurgitation. Mild thrombocytopenia. Previous medical history of hypertension, diabetes mellitus, hyperlipidemia, pulmonary hypertension, depression, previous tobacco dependence with preoperative FEV1 82% of predicted , back surgery, and breast cancer with lumpectomy and radiation in 2006. POD #4 urgent coronary artery bypass graft 2 vessels, left internal mammary artery to left anterior descending coronary artery, reverse saphenous vein graft to obtuse marginal artery. Endoscopic vein harvest right greater saphenous vein. Epi-aortic ultrasound, intraoperative transesophageal echocardiogram. Postoperative normocytic, normochromic anemia, an expected outcome of surgery. Postoperative thrombocytopenia, expected outcome of surgery. Patient's currently sitting up in chair in no acute distress. States pain is controlled with current medication regimen. Denies shortness of breath. No new concerns. Patient is hemodynamically stable. She has ambulated in the hallway multiple times without difficulty. Left pleural chest tube was discontinued yesterday. Objective - Vital Signs Vital signs: Vital Signs Temp 96 F L 02/10/18 08:00 Pulse 82 02/10/18 08:00 Resp 22 02/10/18 08:00 BP 119/58 02/10/18 08:00 Pulse Ox 97 02/10/18 04:00 Intake & Output 02/09/18 02/10/18 02/10/18 18:59 06:59 18:59 Intake Total 0 1140 360 Output Total 1100 2300 0 Balance -1100 -1160 360 Weight 79.8 kg 76.2 kg Intake: IV 0 0 Lactated Ringers 1,000 ml 0 0 @ 20 mls/hr IV .Q24H [facility] Rx#:[id number] Oral 1140 360 Output: Chest Tube Drainage 50 Left Pleural 50 Urine 1050 2300 0 Stool 0 Other: Voiding Method Toilet Toilet # Voids 1 1 # Bowel Movements 1 1 ABP, PAP, CO, CI - Last Documented Arterial Blood Pressure 121/56 Pulmonary Artery Pressure 92/63 Cardiac Output 5.2 Cardiac Index 2.0 - Constitutional General appearance: Present: cooperative, no acute distress - Respiratory Details: Lungs sounds diminished bilaterally. Respirations even, nonlabored. Currently on room air with oxygen saturation 97%. Able to achieve 7875-8401 mL on her incentive spirometry. Effective cough. - Cardiovascular Details: S1, S2 present. Regular rate and rhythm, sinus rhythm on telemetry. Sternum stable. A/V epicardial pacemaker wires present, grounded. Palpable peripheral pulses bilaterally. No edema present. No calf pain or tenderness noted. Heart hugger in place with patient demonstrating appropriate use. Antiembolism stockings, SCDs present. - Gastrointestinal Gastrointestinal Comment(s): Abdomen soft, nontender, nondistended. Active bowel sounds present 4 quadrants. Tolerating diet. Positive bowel movement. - Genitourinary Genitourinary Comment(s): Patient continues to void clear, yellow urine, output 900 mL overnight. - Integumentary Integumentary Comment(s): Skin is warm and dry with evidence of good perfusion. Anterior chest incision well approximated and covered with dry intact dressing. Right lower extremity EVH site well approximated. - Neurologic Neurologic: Present: CNII-XII intact - Musculoskeletal Musculoskeletal: Present: gait normal, strength equal bilaterally - Psychiatric Psychiatric: Present: A&O x's 3, appropriate affect, intact judgment & insight - Allied health notes Allied health notes reviewed: nursing - Labs CBC & Chem 7: 02/10/18 03:48 02/10/18 03:48 Labs: Abnormal Lab Results - Last 24 Hours (Table) 02/09/18 02/09/18 02/09/18 Range/Units 11:53 12:24 17:23 RBC (3.80-5.40) m/uL Hgb (11.4-16.0) gm/dL Hct (34.0-46.0) % POC Glucose (mg/dL) 200 H 173 H 168 H (75-99) mg/dL Total Protein (6.3-8.2) g/dL Albumin (3.5-5.0) g/dL 02/09/18 02/10/18 02/10/18 Range/Units 21:30 03:48 03:48 RBC 2.66 L (3.80-5.40) m/uL Hgb 8.3 L (11.4-16.0) gm/dL Hct 25.0 L (34.0-46.0) % POC Glucose (mg/dL) 140 H (75-99) mg/dL Total Protein 5.2 L (6.3-8.2) g/dL Albumin 3.4 L (3.5-5.0) g/dL 02/10/18 Range/Units 07:26 RBC (3.80-5.40) m/uL Hgb (11.4-16.0) gm/dL Hct (34.0-46.0) % POC Glucose (mg/dL) 159 H (75-99) mg/dL Total Protein (6.3-8.2) g/dL Albumin (3.5-5.0) g/dL - Imaging and Cardiology Chest x-ray: report reviewed, image reviewed Assessment and Plan (1) Coronary artery disease involving left main coronary artery Current Visit: Yes Status: Chronic Code(s): I25.10 - ATHSCL HEART DISEASE OF [place] CORONARY ARTERY W/O ANG PCTRS SNOMED Code(s): 356822751 (2) Hypertension Current Visit: Yes Status: Chronic Code(s): I10 - ESSENTIAL (PRIMARY) HYPERTENSION SNOMED Code(s): 13670817 (3) Hyperlipidemia Current Visit: Yes Status: Chronic Code(s): E78.5 - HYPERLIPIDEMIA, UNSPECIFIED SNOMED Code(s): 21757811 (4) Diabetes mellitus Current Visit: Yes Status: Chronic Code(s): E11.9 - TYPE 2 DIABETES MELLITUS WITHOUT COMPLICATIONS SNOMED Code(s): 33326803 (5) Pulmonary hypertension Current Visit: Yes Status: Chronic Code(s): I27.20 - PULMONARY HYPERTENSION , UNSPECIFIED SNOMED Code(s): 88727328 (6) Chronic diastolic heart failure Current Visit: Yes Status: Chronic Code(s): I50.32 - CHRONIC DIASTOLIC ( CONGESTIVE) HEART FAILURE SNOMED Code(s): 191493001 (7) Depression Current Visit: Yes Status: Chronic Code(s): F32.9 - MAJOR DEPRESSIVE DISORDER, SINGLE EPISODE, UNSPECIFIED SNOMED Code(s): 46089822 (8) History of breast cancer Current Visit: No Status: Resolved Code(s): Z85.3 - PERSONAL HISTORY OF MALIGNANT NEOPLASM OF BREAST SNOMED Code(s): 540404646 (9) History of lumpectomy of right breast Current Visit: No Status: Resolved Code(s): Z98.890 - OTHER SPECIFIED POSTPROCEDURAL STATES SNOMED Code(s): 132597207 (10) History of radiation therapy Current Visit: No Status: Resolved Code(s): Z92.3 - PERSONAL HISTORY OF IRRADIATION SNOMED Code(s): 637709285 (11) Tobacco dependence in remission Current Visit: No Status: Resolved Code(s): F17.201 - NICOTINE DEPENDENCE, UNSPECIFIED, IN REMISSION SNOMED Code(s): 889700661 Plan: 1. Continue low dose aspirin, statin, Plavix, beta stiven, heparin SQ. 2. Encourage incentive spirometry use 10 times every hour. 3. Increase activity, ambulate in hallway. PT/OT/cardiac rehab following. 4. GI/DVT prophylaxis. 5. Pain medication with ordered medication regimen. 6. Insulin/diabetic management per primary care service. school vocational educator consulted as patient will go home with insulin, recommended to keep a log of blood sugars to bring to primary care office. 7. Bronchodilators per pulmonology. 8. Will give Lasix 20 mg IV push 1 today. 9. Will discontinue epicardial pacemaker wires today. Must be on bedrest for 1 hour post-wire removal. 10. Discharge planning in progress. Still waiting on input from occupational therapy, however anticipate discharge to home with home care this afternoon. Time with Patient: Greater than 30
--- NOTE | 2018-02-10 09:39 | P.PN ---
Subjective Progress Note Date: 02/10/18 Principal diagnosis: chest pain Patient is a 72-year-old female with a complex medical history including diabetes mellitus type 2 with neuropathy managed on oral medications, hypertension, dyslipidemia, GERD, pulmonary hypertension, diastolic dysfunction , and depression who presented for an elective outpatient cardiac catheterization. Initially she had seen Dr. Leigh in the office and had a stress test performed. During her stress test she was noted to have EKG changes consistent with anterior apical and inferior lateral reversible defect. She developed her chest pain symptoms and received a nitroglycerin. She subsequently underwent cardiac catheterization on the morning of 02/04 which showed disease in the left main, RCA, circumflex, and LAD. She was subsequently placed on a heparin drip and admitted to the ICU. Dr. Alvarado from cardiothoracic surgery was consulted for regarding revascularization recommendations. Preoperative testing was started on 02/04/18. On the morning of 02/06 she underwent two-vessel bypass grafting with left internal mammary artery to the LAD and saphenous vein graft to the obtuse marginal. She was admitted to the ICU sedated on the ventilator. Intraoperatively she received 1 unit of packed red blood cells. She was extubated on 02/06 and had no acute events over night. Her Blood sugar continued to be elevated despite insulin gtt and levemir was started the morning of 02/08 in hope of getting her off insulin gtt while maintaining BS <180. Transitioned off insulin gtt on 02/08 despite aggressive use of long and short activing insulin her BS remained elevated. They were well controlled by the morning of 02/10. Patient seen and examined at bedside. She is feeling well today. Her pain has been decreasing but she is still requiring oral narcotic medications. She denies any shortness of breath. We discussed her diabetes care plan in detail. She wants me that the clinical trial educator prior to discharge and have her daughter there. She will be discharged home on Levemir 20 units daily. This is a new insulin start. I discussed with her that I think she may be able to come off of this medication and she gets further from open-heart surgery. She will talk her blood sugars every morning prior to eating. If her blood sugar is less than 100 she will not take the Levemir and will call her family physician Dr. Doe immediately. 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 Her hemoglobin A1c prior to open-heart surgery was 7.9. She is interested in a attending outpatient diabetic education classes. All of this information was communicated in writing on her discharge summary. Objective - Vital Signs Vital signs: Vital Signs Temp 96 F L 02/10/18 08:00 Pulse 75 02/10/18 09:00 Resp 13 02/10/18 09:00 BP 119/58 02/10/18 08:00 Pulse Ox 97 02/10/18 04:00 Intake & Output 02/09/18 02/10/18 02/10/18 18:59 06:59 18:59 Intake Total 0 1140 360 Output Total 1100 2300 0 Balance -1100 -1160 360 Weight 79.8 kg 76.2 kg Intake: IV 0 0 Lactated Ringers 1,000 ml 0 0 @ 20 mls/hr IV .Q24H [facility] Rx#:[id number] Oral 1140 360 Output: Chest Tube Drainage 50 Left Pleural 50 Urine 1050 2300 0 Stool 0 0 Other: Voiding Method Toilet Toilet Toilet # Voids 1 1 # Bowel Movements 1 1 ABP, PAP, CO, CI - Last Documented Arterial Blood Pressure 121/56 Pulmonary Artery Pressure 92/63 Cardiac Output 5.2 Cardiac Index 2.0 - Exam General: No distress, non toxic, appears at stated age Derm: warm, dry, Midline incision with dressing in place. Head: atraumatic, normocephalic, symmetric Eyes: EOMI, no lid lag, anicteric sclera Mouth: no lip lesion, mucus membranes moist Cardiovascular: S1S2 reg with murmur Lungs: clear to auscultation bilateral, no rhonchi, no rales , no accessory muscle use Abdominal: soft, nontender to palpation, no guarding, no appreciable organomegaly Ext: no gross muscle atrophy, no edema, no contractures Neuro: CN II-XII grossly intact, No gross neuro deficits Psych: Awake, alert, appropriate affect - Labs CBC & Chem 7: 02/10/18 03:48 02/10/18 03:48 Labs: Abnormal Lab Results - Last 24 Hours (Table) 02/06/18 02/09/18 02/09/18 Range/Units 11:04 11:53 12:24 RBC (3.80-5.40) m/uL Hgb (11.4-16.0) gm/dL Hct (34.0-46.0) % ABG Lactic Acid 2.5 H* (0.5-1.6) mmol/L POC Glucose (mg/dL) 200 H 173 H (75-99) mg/dL Total Protein (6.3-8.2) g/dL Albumin (3.5-5.0) g/dL 02/09/18 02/09/18 02/10/18 Range/Units 17:23 21:30 03:48 RBC (3.80-5.40) m/uL Hgb (11.4-16.0) gm/dL Hct (34.0-46.0) % ABG Lactic Acid (0.5-1.6) mmol/L POC Glucose (mg/dL) 168 H 140 H (75-99) mg/dL Total Protein 5.2 L (6.3-8.2) g/dL Albumin 3.4 L (3.5-5.0) g/dL 02/10/18 02/10/18 Range/Units 03:48 07:26 RBC 2.66 L (3.80-5.40) m/uL Hgb 8.3 L (11.4-16.0) gm/dL Hct 25.0 L (34.0-46.0) % ABG Lactic Acid (0.5-1.6) mmol/L POC Glucose (mg/dL) 159 H (75-99) mg/dL Total Protein (6.3-8.2) g/dL Albumin (3.5-5.0) g/dL Assessment and Plan Assessment: 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 This is a new insulin start. I discussed with her that I think she may be able to come off of this medication and she gets further from open-heart surgery. She will take her blood sugars every morning prior to eating. If her blood sugar is less than 100 she will not take the Levemir and will call her family physician Dr. Doe immediately. 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 Her hemoglobin A1c prior to open-heart surgery was 7.9. She is interested in a attending outpatient diabetic education classes. All of this information was communicated in writing on her discharge summary. Anemia secondary to acute blood loss as an expectorant and anticipated outcome of surgical procedure -Received 1 unit packed red blood cells in the OR -Follow CBC - start Ferrous sulfate BID X 30 day, bowel regiment in placed Thrombocytopenia, resolved -Likely consumptive and reactive with surgery -Follow CBC HTN - lopressor - follow BP -Home atenolol, lisinopril and norvasc on hold postoperatively HLD - statin GERD -protonix Depression -effexor DVT prophylaxis: Heparin Medically stable for discharge once seen by clinical trial educator at the discretion of Dr. Alvarado service Left Message for Devyn at [phone]. D/W MIRTA, RX of insulin flex pen written.
[2018-02-10] MEDS ORDERED: FUROSEMIDE 10 MG/ML 2 ML VIAL IV ONE (11:00)
--- NOTE | 2018-02-10 11:17 | P.DS ---
Providers Date of admission: 02/04/18 07:49 Expected date of discharge: 02/10/18 Attending physician: Morro Alvarado Consults: 02/04/18 13:34 Consult Physician Routine Consulting Provider: Sachin Harper Consult Reason/Comments: preop cabg Do you want consulting provider notified?: Yes 02/04/18 15:32 Consult Physician Routine Consulting Provider: Funmilayo Barbosa Consult Reason/Comments: medical management preop cabg Do you want consulting provider notified?: Yes 02/04/18 16:12 Consult to Anesthesia Routine Consulting Provider: Anesthesia,Services Consult Reason/Comments: Cardiac Surgery Pre-Op 02/06/18 13:18 Consult Physician Routine Consulting Provider: Jay Leigh Consult Reason/Comments: Chick Sexer Consult: post cardiac surgery Do you want consulting provider notified?: Yes Primary care physician: Pranav Doe MD - Discharge Diagnosis(es) (1) Coronary artery disease involving left main coronary artery Current Visit: Yes Status: Chronic (2) Hypertension Current Visit: Yes Status: Chronic (3) Hyperlipidemia Current Visit: Yes Status: Chronic (4) Diabetes mellitus Current Visit: Yes Status: Chronic (5) Pulmonary hypertension Current Visit: Yes Status: Chronic (6) Chronic diastolic heart failure Current Visit: Yes Status: Chronic (7) Depression Current Visit: Yes Status: Chronic (8) History of breast cancer Current Visit: No Status: Resolved (9) History of lumpectomy of right breast Current Visit: No Status: Resolved (10) History of radiation therapy Current Visit: No Status: Resolved (11) Tobacco dependence in remission Current Visit: No Status: Resolved Hospital Course: FINAL DIAGNOSIS: 1. Triple-vessel coronary artery disease with left main disease 2. Mild to moderate aortic stenosis, mild mitral regurgitation, mild tricuspid regurgitation 3. Grade 3 diastolic dysfunction 4. Hypertension 5. Diabetes mellitus with preoperative hemoglobin A1c 7.9% 6. Hyperlipidemia 7. Pulmonary hypertension 8. Depression 9. Previous tobacco dependence with preoperative FEV1 82% of predicted 10. History of breast cancer with lumpectomy and radiation in 2005 11. Postoperative normocytic, normochromic anemia 12. Postoperative thrombocytopenia which was present preoperatively as well PRINCIPAL PROCEDURE: 1. Left heart catheterization 2. Urgent coronary artery bypass graft 2 vessels, left internal mammary artery to the left anterior descending coronary artery, reverse saphenous vein graft to the obtuse marginal artery 3. Endoscopic vein harvest right greater saphenous vein 4. Epi-aortic ultrasound 5. Intraoperative transesophageal echocardiogram HISTORY OF PRESENT ILLNESS: This is a 72-year-old female patient who follows with Dr. Pranav Doe on an outpatient basis. She has been seen by Dr. DAYA Leigh in the past, was lost to follow-up for some time, and began seeing him again recently. Since November she's been having intermittent periods of midsternal chest pain with radiation to her bilateral shoulders as well as feeling like she has fluid in her lungs with occasional wheezing. These episodes are mostly with exertion but occasionally at rest. She underwent a stress test at Dr. Leigh's office with EKG changes consistent with moderate to large anteroapical and inferior lateral reversible defect, she did have angina during the stress test which was relieved with nitroglycerin. In addition she had a transthoracic echocardiogram demonstrating preserved ejection fraction of 55%, concentric left ventricular hypertrophy and left atrial enlargement, mild to moderate aortic stenosis with peak mean gradient 27/14 mmHg, no wall motion abnormalities, grade 3 diastolic dysfunction, mild mitral regurgitation, mild tricuspid regurgitation, and mild pulmonary regurgitation. She was recommended to undergo cardiac catheterization which demonstrated 80% left main disease, diffuse 70% RCA disease, 75% circumflex disease, 70% proximal LAD with mid LAD disease to 95%. The patient was referred to Dr. Alvarado from cardiothoracic surgery. She was recommended to have urgent coronary artery bypass graft surgery. All risks and benefits were explained in detail to the patient and her family, all questions were answered, and consent was obtained to proceed with surgery. She was kept inpatient due to the nature of her disease process. HOSPITAL COURSE: On February 06 the patient was taken to the preoperative area, prepared in the usual fashion, and subsequently taken to the operating room where Dr. Alvarado performed an urgent coronary artery bypass graft 2 vessels, left internal mammary artery to the left anterior descending coronary artery, reverse saphenous vein graft to the obtuse marginal artery, endoscopic vein harvest right greater saphenous vein, epi-aortic ultrasound, and intraoperative transesophageal echocardiogram. Upon completion of surgery the patient was transferred to the cardiovascular intensive care unit where she was recovered, monitored hemodynamically, and where she progressed to cardiac rehabilitation phase 1. She was extubated, all lines, tubes, and drips were discontinued when appropriate. She did have an episode of postoperative anemia which was treated with 1 unit of packed red blood cells. Orders were placed for her to transfer to [address] [place] [address], however there was no bed availability and she remained an overflow patient in the intensive care unit until discharge. Her oxygen was titrated down, she continued to work with physical and occupational therapy, she was tolerating oral diet, her pain was controlled, and she was ready to be discharged to home with home care on postoperative day #4. She received written and verbal instruction regarding her medications, activity restrictions , signs and symptoms requiring physician notification, and follow-up appointments. COMPLICATIONS: The patient experienced postoperative anemia and thrombocytopenia , both of which are expected outcomes of surgery given cardiopulmonary bypass pump and hemodilution. Patient Condition at Discharge: Stable Plan - Discharge Summary Discharge Rx Participant: Yes New Discharge Prescriptions: New Acetaminophen Tab [Tylenol] 650 mg PO Q6HR PRN tab PRN Reason: Moderate Pain Ascorbic Acid [Vitamin C] 500 mg PO BID-W/MEALS #20 tab Clopidogrel [Plavix] 75 mg PO DAILY #30 tab Ferrous Sulfate [Iron (65 MG Elemental)] 325 mg PO BID-W/MEALS #20 tab HYDROcodone/APAP 5-325MG [Brewster 5-325] 1 - 2 each PO Q6HR PRN #14 tab PRN Reason: Moderate Pain Metoprolol Tartrate [Lopressor] 25 mg PO BID #60 tab Pantoprazole [Protonix] 40 mg PO AC-BRKFST #30 tablet.dr Shah-Docusate Sodium [Senokot-S] 2 each PO HS #14 tab Insulin Detemir [Levemir Flextouch] 20 units SQ DAILY #1 box Furosemide [Lasix] 20 mg PO DAILY #7 tab Continue metFORMIN HCL [Glucophage] 1,000 mg PO BID FLUoxetine HCL [PROzac] 40 mg PO DAILY Atorvastatin [Lipitor] 80 mg PO DAILY Cholecalciferol [Vitamin D3] 3,000 unit PO DAILY Aspirin [Adult Low Dose Aspirin EC] 81 mg PO DAILY Discontinued Glimepiride [Amaryl] 4 mg PO DAILY Atenolol 25 mg PO BID amLODIPine BESYLATE [Norvasc] 5 mg PO DAILY Lisinopril [Zestril] 10 mg PO DAILY Discharge Medication List Aspirin [Adult Low Dose Aspirin EC] 81 mg PO DAILY 02/03/18 [History] Atorvastatin [Lipitor] 80 mg PO DAILY 02/03/18 [History] Cholecalciferol [Vitamin D3] 3,000 unit PO DAILY 02/03/18 [History] FLUoxetine HCL [PROzac] 40 mg PO DAILY 02/03/18 [History] metFORMIN HCL [Glucophage] 1,000 mg PO BID 02/03/18 [History] Acetaminophen Tab [Tylenol] 650 mg PO Q6HR PRN tab 02/10/18 [Rx] Ascorbic Acid [Vitamin C] 500 mg PO BID-W/MEALS #20 tab 02/10/18 [Rx] Clopidogrel [Plavix] 75 mg PO DAILY #30 tab 02/10/18 [Rx] Ferrous Sulfate [Iron (65 MG Elemental)] 325 mg PO BID-W/MEALS #20 tab 02/10/18 [Rx] Furosemide [Lasix] 20 mg PO DAILY #7 tab 02/10/18 [Rx] HYDROcodone/APAP 5-325MG [Brewster 5-325] 1 - 2 each PO Q6HR PRN #14 tab 02/10/18 [ Rx] Insulin Detemir [Levemir Flextouch] 20 units SQ DAILY #1 box 02/10/18 [Rx] Metoprolol Tartrate [Lopressor] 25 mg PO BID #60 tab 02/10/18 [Rx] Pantoprazole [Protonix] 40 mg PO AC-BRKFST #30 tablet.dr 02/10/18 [Rx] Sennosides-Docusate Sodium [Senokot-S] 2 each PO HS #14 tab 02/10/18 [Rx] Follow up Appointment(s)/Referral(s): Jay Leigh MD [STAFF PHYSICIAN] - 2 Weeks (Office will call to set up appointment. If you haven't heard from them by SaturdayFeb 17 please call the office.) Pranav Doe MD [Primary Care Provider] - 02/14/18 11:00 am Scotty Marrero NPC [Nurse Practitioner] - 02/14/18 1:00 pm Morro Alvarado MD [STAFF PHYSICIAN] - 03/07/18 10:15 am Sachin Harper MD [STAFF PHYSICIAN] - 03/24/18 9:45 am Ambulatory/Diagnostic Orders: Complete Blood Count w/diff [LAB.AMB] Time Frame: 3 Days, Location: None Selected Comprehensive Metabolic Panel [LAB.AMB] Time Frame: 3 Days, Location: None Selected Activity/Diet/Wound Care/Special Instructions: DISCHARGE INSTRUCTIONS: 1. No driving for 4 weeks, or until physician gives their ok. 2. The patient should sleep in their own bed, no medical bed needed. 3. Stairs are not an issue. If the bedroom is upstairs, it is advised that the patient go up at night and down in the morning for the first week. Go slowly, using handrail and take 1 step at a time. 4. BECKY hose are to be worn for 30 days or until physician discontinues. 5. Heart hugger is to be worn 100% of the time until physician discontinues.( except when showering) 6. No lifting, pushing, or pulling more than 10 pounds for 12 weeks. The physician will advise of any restriction changes. 7. The patient is expected to continue the prescribed walking program. 8. Continue pain control per as needed orders. 9. Continue with incentive spirometry and splinting/heart hugger until otherwise directed by the physician. 10. Must shower daily using liquid antibacterial soap and a separate white washcloth for each individual incision. 11. Routine sternal incision care. No powders, lotions, ointments on incisions. 12. Please call surgeon/INDUSTRY ANALYST for temp greater than 101 F or purulent drainage from incisions. 13. Narcotic medications were discussed with the patient, including the potential for misuse, addiction, and abuse. Opiod Start Talking form was reviewed with the patient. 14. All prescriptions given by surgeon for 30 days. Refills need to be filled through die designer/primary care physician. 15. A Red armband has been placed on the patient. It should be worn for 30 days post surgery and will be removed by the cardiac surgeons. If an ER visit is necessary, please make sure the number on the Red armband is called. HOME HEALTH SERVICES TO PROVIDE: RN SKILLED HOME CARE SERVICES FOR POST-OP SURGICAL PATIENTS WITH THE FOLLOWING: Coronary Artery Bypass Surgery (CABG), Mitral Valve Replacement/ Repair ( MVR), Aortic Valve Replacement/Repair (AVR) RN TO CONTINUE EDUCATION FROM ``ROAD TO A HEALTH HEART PATIENT EDUCATION MANUAL (GIVEN TO PATIENT IN THE HOSPITAL) MEDICATION RECONCILIATION WITH EDUCATION NEEDED ON FIRST HOME VISIT EMPHASIZE IMPORTANCE OF WEARING BREAST SUPPORT/HEART HUGGER ENCOURAGE USE OF INCENTIVE SPIROMETER 10 X EVERY HOUR WHILE AWAKE ENCOURAGE UTILIZATION OF LOWER EXTREMITY COMPRESSION STOCKINGS/BECKY HOSE and ELEVATE LEGS ABOVE LEVEL OF HEART WHILE AT REST. ENCOURAGE AMBULATION 3-5x/day INCREASING TOLERATES, WHILE AVOID EXTREMES IN TEMPERATURE FREQUENCY: RN TO OPEN THE PATIENT WITHIN 24 HOURS OF DISCHARGE FROM THE HOSPITAL WITH TELEHEALTH INSTALLED AT [facility], RN TO VISIT 2-3 X A WEEK FOR 4 WEEKS ESTABLISHED BY PATIENT NEEDS. LABORATORY: CBC, CMP TO BE DRAWN ON THE THIRD DAY HOME, 02/13/18, (RAN STAT) FAX RESULTS TO [phone]. TELEHEALTH PARAMETERS: WEIGHT: NOTIFY MD OF WEIGHT GAIN OF 2 LBS IN 24 HOURS OR 5 LBS IN ONE WEEK HR: NOTIFY MD OF HR <55 BPM OR HR>100 BPM BP: NOTIFY MD IF BP <90/55 OR BP>140/100 O2 SAT: NOTIFY MD IF PO2<93% ON ROOM AIR SEND TELEHEALTH REPORT TO DIRECTOR COST AND CARDIOVASCULAR SURGEON THE FIRST WEEK OF CARE AND THEN BI-WEEKLY. PLEASE ADDITIONALLY COMMUNICATE ANY ABNORMALS AND NEW FINDINGS TO THE SURGEONS OFFICE. DIABETES INSTRUCTIONS: 1. Take blood sugar every morning prior to eating 2. Take Levemir in the morning 3. If your morning blood sugar is less than 100 then do not take Levemir and call your doctor 4. Take your metformin twice daily, Do not take Glimepiride at this time Discharge Disposition: HOME WITH HOME HEALTH SERVICES
--- NOTE | 2018-02-10 11:53 | P.PN ---
Subjective Progress Note Date: 02/10/18 Principal diagnosis: Status post CABG postoperative day #4 Mrs. Acuña is a 72-year-old white female patient of Dr. Pranav Doe, who was brought in for cardiac catheterization today on 02/04/2018, following up positive stress test at [facility]. Patient has been having substernal chest pain, with bilateral arm heaviness, and ringing in her ears on and off since November. She states her symptoms would be brought after eating, and physical exertion like walking. Relieved with rest, and deep breathing. Lately her symptoms were also accompanied by sweating. Her PCP referred her to cardiology, she underwent exercise stress test on 02/03/2018, and she had chest pain, diaphoresis, significant infero-apical ST segment depression, and she was scheduled for cardiac catheterization today, which showed 70-80% left main lesion, 80% lesion in the circumflex, obtuse marginal that was mid and proximal LAD. The RCA was diffusely diseased, but was nondominant. There was a less than 10 mm gradient across the aortic valve. Lab work showed WBC of 4.2, hemoglobin of 11.7, electrolytes and renal profile were essentially normal, magnesium was 1.3, LFTs were normal. Past medical history is positive for hypertension, diabetes mellitus type 2, hyperlipidemia, depression, remote and brief smoking history, back surgery, breast cancer in 2005, status post lumpectomy and radiation. Most recent mammogram from December 2017 was normal. Echocardiogram showed mild to moderate aortic stenosis with mean gradient of 15 mmHg, mild pulmonary hypertension, concentric LVH and left atrial enlargement, ejection fraction of 55%. Patient was referred to cardiothoracic surgery and she was recommended surgical revascularization to which she agreed. Her surgery is scheduled for 02/06/[address] Alvarado. On 02/05/2018, the patient is calm and comfortable free of any chest resting in bed. No respiratory difficulties. Review the CAT scan of the chest and there is no acute abnormalities. The spirometry shows preserved FEV1 at 82%. She is hemodynamically stable. The patient is awaiting her cardiac surgery and bypass for tomorrow. No nausea. No vomiting. No altered mentation. No other complaints otherwise for now. On 02/06/2018 patient seen in follow-up in intensive care, she is status post two-vessel coronary artery bypass grafting, ZELAYA to LAD and SVG to the up to his marginal. She is sedated, on mechanical ventilation, on on SIMV mode of ventilation, with a rate of 12, 400 tidal volume, FiO2 of 100%, and PEEP of 5. Postop blood gases were reviewed, showed pO2 131, pCO2 of 48.5, and pH of 7.3. She was placed on assist-control mode of ventilation, with a rate of 18, tidal vital 500, FiO2 100% and PEEP of 5. Patient's O2 sat is 100%, and FiO2 was dropped to 80%. Venous IV drips is LR at a rate of 50 ML per hour, clevidipine at 1 mg per hour, nitroglycerin at 5 mics per minute, and Diprivan 25 mcg/kg/ min. she is hemodynamically stable, cardiac outputs and cardiac index are 5.9, and 3.3. PA pressures of 51/27, with a map of 39. CVP is 21. Patient is in sinus rhythm, AV wires are present, external pacemaker with backup rate of VVI 40 Bpm. Postop blood work shows a VC of 4.6, hemoglobin of 7.4, INR is 1.4, sodium is 140, potassium is 4.5, chloride is 110, renal profile is within normal limits. Postop chest x-ray has been reviewed by Dr. Harper, and shows stop changes with lines and tubes, and a new postoperative patchy retrocardiac atelectasis. Indwelling catheter is present, and patient is nonoliguric. 2 mediastinal and one left pleural chest tube are present, there is 40 mL of sanguinous output from the mediastinal, and 30 mL out of the left pleural chest tubes. On 02/07/2018 patient seen in follow-up in the intensive care unit, this is postop day 1, status post two-vessel coronary artery bypass grafting, ZELAYA to LAD and SVG to the obtuse marginal. Patient extubated yesterday at 1829, on 08/2017. Currently she is awake, alert, sitting up in the chair, currently on room air, on 2 L her pulse ox was 96%, denies any dyspnea, her pain is reasonably controlled, vital signs are stable, blood pressures 122/47, pO2 is 53 /24, cardiac output and index is 5.2 and 2.9. Current drips include lactated Ringer's at a rate of 50 ML per hour, nitroglycerin at 5 mics per minute, and insulin drip at 3.5 units per hour. Lung sounds are clear, diminished at the bases, no rhonchi, no rales noted. Patient is in sinus rhythm, with a rate of 85 bpm, AV wires are present, external pacemaker on backup rate. There has been 460 mL of serosanguineous output from the mediastinal chest tube, and about 450 out of the left pleural. No air leak noted. Surgeons are clean dry and intact. Today's chest x-ray has been reviewed. It shows new right basilar opacity post extubation this could represent atelectasis. Incentive spirometry effort is 750-1000 ML today. Patient received a unit of packed red blood cells yesterday in the postoperative period, and today's labs show hemoglobin of 8.2, platelet count of 75, electrolytes and renal profile are normal. On 02/08/2018 and seeing this patient for a follow-up. The patient is postop day #2. She is doing extremely well. She has no respiratory difficulties. She is using incentive spirometer. She is postop day #2. No nausea. No vomiting. No chest pain. The patient is producing adequate amount of urine output. The output from the mediastinal chest tube is low at 60 mL over the past 24 hours and output from the left pleural chest tube is around 550 mL over the past 24 hours. No evidence of any air leak. Chest x-ray shows some limited bibasilar pulmonary infiltration. No evidence of any pneumothorax. The [place]-Sweetie catheter was removed this morning. She is on no pressors. She is on insulin drip for blood sugar control. Cardiac rhythm is sinus with occasional PACs. On 02/09/2018 I'm seeing this patient for a follow-up. The patient is in well and she is ambulating. She has no specific complaints. The mediastinum tube was taken out yesterday. The patient has a pleural chest tube which shows an output of 150 mL over the past 12 hours. Hemodynamically stable on no pressors pH is currently on room air oxygen and the pulse ox is around 92%. Pain is under good control and the patient is requiring Vader on and off for pain control. No other significant events overnight. She is on Levemir insulin along with a sliding scale coverage. The blood sugars in the 200s and the Levemir dose was increased up to 25 units. Otherwise rest of the blood work is within normal limits. The chest x-ray from today shows some limited bibasilar airspace disease and small bilateral pleural effusion unchanged from yesterday' s examination. Left pleural chest tube remains in place. On 02/10/2018, I'm seeing this patient on follow-up, and she seems to be doing quite well. As a matter fact patient is doing so well to the point that she is going to be discharged home today. Denies any cough no wheezing no shortness of breath, chest x-ray labs and meds were all reviewed. Patient had a mild episode of nausea earlier today presently asymptomatic Objective - Vital Signs Vital signs: Vital Signs Temp 96 F L 02/10/18 08:00 Pulse 78 02/10/18 10:00 Resp 12 02/10/18 10:00 BP 130/68 02/10/18 10:00 Pulse Ox 97 02/10/18 04:00 Intake & Output 02/09/18 02/10/18 02/10/18 18:59 06:59 18:59 Intake Total 0 1140 360 Output Total 1100 2300 0 Balance -1100 -1160 360 Weight 79.8 kg 76.2 kg Intake: IV 0 0 Lactated Ringers 1,000 ml 0 0 @ 20 mls/hr IV .Q24H TORIBIO Rx#:[id number] Oral 1140 360 Output: Chest Tube Drainage 50 Left Pleural 50 Urine 1050 2300 0 Stool 0 0 Other: Voiding Method Toilet Toilet Toilet # Voids 1 1 # Bowel Movements 1 1 ABP, PAP, CO, CI - Last Documented Arterial Blood Pressure 121/56 Pulmonary Artery Pressure 92/63 Cardiac Output 5.2 Cardiac Index 2.0 - Exam Physical Exam: Revealed a 72-year-old female in no distress. HEENT:[Neck is supple.] [No neck masses.] [No thyromegaly.] [No JVD.] Chest: [Clear throughout, no crackles, no rhonchi, no wheezes.] Cardiac Exam: [Normal S1 and S2, no S3 gallop, no murmur.] Abdomen: [Soft, nontender, no megaly, no rebound, no guarding, normal bowel sounds.] Extremities: [No clubbing, no edema, no cyanosis.] Neurological Exam: [No focal neurologic deficit. Lymphatics: No lymphadenopathy. Psychiatric: Normal mood affect and mental status examination.] - Labs CBC & Chem 7: 02/10/18 03:48 02/10/18 03:48 Labs: Abnormal Lab Results - Last 24 Hours (Table) 02/06/18 02/09/18 02/09/18 Range/Units 11:04 11:53 12:24 RBC (3.80-5.40) m/uL Hgb (11.4-16.0) gm/dL Hct (34.0-46.0) % ABG Lactic Acid 2.5 H* (0.5-1.6) mmol/L POC Glucose (mg/dL) 200 H 173 H (75-99) mg/dL Total Protein (6.3-8.2) g/dL Albumin (3.5-5.0) g/dL 02/09/18 02/09/18 02/10/18 Range/Units 17:23 21:30 03:48 RBC (3.80-5.40) m/uL Hgb (11.4-16.0) gm/dL Hct (34.0-46.0) % ABG Lactic Acid (0.5-1.6) mmol/L POC Glucose (mg/dL) 168 H 140 H (75-99) mg/dL Total Protein 5.2 L (6.3-8.2) g/dL Albumin 3.4 L (3.5-5.0) g/dL 02/10/18 02/10/18 Range/Units 03:48 07:26 RBC 2.66 L (3.80-5.40) m/uL Hgb 8.3 L (11.4-16.0) gm/dL Hct 25.0 L (34.0-46.0) % ABG Lactic Acid (0.5-1.6) mmol/L POC Glucose (mg/dL) 159 H (75-99) mg/dL Total Protein (6.3-8.2) g/dL Albumin (3.5-5.0) g/dL Assessment and Plan Assessment: #1. Symptomatic coronary artery disease, with 80% left main stenosis, diffuse RCA disease at 70%, 75% circumflex lesion, 70% proximal LAD, and mid LAD up to 95%. That is post 2 vessel coronary artery bypass grafting, with ZELAYA to LAD, and SVG to the OM, postop day #4 #2. Routine postoperative ventilator management, the patient was extubated without any major difficulties #3. Blood loss anemia, an expected outcome of surgery, hemoglobin is stable for now at 8.3 #4. Diabetes mellitus type 2 , on Levemir insulin #5. Hypertension #6. Hyperlipidemia #7. Depression #8. History of right breast cancer, status post lumpectomy and radiation, in 2005. Most recent mammogram was reportedly within normal limits. #9. Remote smoking history, quit smoking at age of 21, smoked a pack a day for 6 years #10. Pulmonary hypertension Recommendation: Agree with discharge planning, follow-up with Dr. Harper in 2 weeks postdischarge continue incentive spirometry at home. Time with Patient: Less than 30
[2018-02-10 12:09] LABS: Glucose,Whole Blood 120 mg/dL (75-99)
[2018-02-10 12:25] VITALS: BP 119/76; PULSE 66; RESP 18; TEMP 98.8
--- NOTE | 2018-02-10 14:38 | CONS ---
CONSULTATION This patient is status post coronary artery bypass surgery. Patient is breathing well. No arrhythmia is noted. Denies any chest pain, no respiratory distress. Patient has been ambulating in the intensive care unit. Blood pressure is 120/76 mmHg. Heart S1 and S2 normal. Lungs are clinically clear to auscultation and percussion. We will continue the current medications. The patient is discharged home today. MMODL / IJN: [id number] /
--- NOTE | 2018-02-11 10:29 | P.VSCSTY ---
Greater Saphenous Vein Mapping This is bilateral lower extremity greater saphenous vein mapping. Date of service 02/04/2018 Vein quality and ultrasound appearance no wall changes or intraluminal thrombus are seen. Vein size groin right 9.8 x 8.1 groin left 5.1 x 5.6 High thigh right 5.0 x 4.8 high thigh left 4.4 x 4.2 Mid thigh right 3.8 x 3.5 mid thigh left 5.2 x 3.2 Above-knee right 3.8 x 3.9 above- knee left 3.9 x 3.0 Below knee right 3.5 x 3.5 below-knee left 2.9 x 2.8 Mid calf right 2.2 x 1.6 mid calf left 2.1 x 1.8 Ankle right 2.9 x 2.0 ankle left 3.8 x 2.3 Impression usable bilateral greater saphenous vein. Portion of mid calf on both sides may be a bit small..
== END 2018-02-10 17:10 | disposition home health service (06) | DRG 234 ==
LOC: CATHCVL 05:56 → 6ICU 07:49
PROVIDERS: ADMIT Internal Medicine; ATTEND Surgery
PROC: 4A023N7 Measurement of Cardiac Sampling and Pressure, Left Heart, Percutaneous Approach (ICD-10-PCS; 2018-02-04)
PROC: B2111ZZ Fluoroscopy of Multiple Coronary Arteries using Low Osmolar Contrast (ICD-10-PCS; 2018-02-04)
PROC: 06BP4ZZ Excision of Right Saphenous Vein, Percutaneous Endoscopic Approach (ICD-10-PCS; principal; 2018-02-06 08:00)
PROC: 021009W Bypass Coronary Artery, One Artery from Aorta with Autologous Venous Tissue, Open Approach (ICD-10-PCS; principal; 2018-02-06 08:00)
PROC: 5A1221Z Performance of Cardiac Output, Continuous (ICD-10-PCS; principal; 2018-02-06 08:00)
PROC: B246ZZ4 Ultrasonography of Right and Left Heart, Transesophageal (ICD-10-PCS; principal; 2018-02-06 08:00)
PROC: 02100Z9 Bypass Coronary Artery, One Artery from Left Internal Mammary, Open Approach (ICD-10-PCS; principal; 2018-02-06 08:00)
DX: I25.10 Atherosclerotic heart disease of native coronary artery without angina pectoris (principal); D62 Acute posthemorrhagic anemia; I50.32 Chronic diastolic (congestive) heart failure; J98.11 Atelectasis; D69.59 Other secondary thrombocytopenia; E11.40 Type 2 diabetes mellitus with diabetic neuropathy, unspecified; E11.65 Type 2 diabetes mellitus with hyperglycemia; E78.5 Hyperlipidemia, unspecified; F17.201 Nicotine dependence, unspecified, in remission; F32.9 Major depressive disorder, single episode, unspecified; I08.3 Combined rheumatic disorders of mitral, aortic and tricuspid valves; I11.0 Hypertensive heart disease with heart failure; I27.20 Pulmonary hypertension, unspecified; K21.9 Gastro-esophageal reflux disease without esophagitis; Z79.02 Long term (current) use of antithrombotics/antiplatelets; Z79.4 Long term (current) use of insulin; Z79.82 Long term (current) use of aspirin; Z79.899 Other long term (current) drug therapy; Z80.1 Family history of malignant neoplasm of trachea, bronchus and lung; Z85.3 Personal history of malignant neoplasm of breast; Z92.3 Personal history of irradiation; Z88.2 Allergy status to sulfonamides
CPT/HCPCS: 71045; 71046; 71250; 80048; 80053; 80061; 80074; 81003; 82330; 82805; 83036; 83735; 84100; 84132; 84443; 85025; 85520; 85610; 85730; 86850; 86891; 86900; 86901; 86920; 87070; 87086; 93458; 93880; 93970; 94002; 94150; 94640

== ENCOUNTER → 2018-02-21 | Outpatient (CLI) | payer MEDICARE, BC ==
--- NOTE | 2018-02-21 11:18 | XR ---
EXAMINATION TYPE: XR chest 2V DATE OF EXAM: 02/21/2018 COMPARISON: Chest x-ray February 10, 2018 HISTORY: Post CABG 2 weeks ago TECHNIQUE: Frontal and lateral views of the chest are obtained. FINDINGS: Post CABG changes with mediastinal clips and sternal wires is redemonstrated. There is stab le cardiomegaly. There is stable right basilar opacity consistent with small right pleural effusion. There is worsening left basilar opacity consistent with developing small to moderate-sized left pleu ral effusion and/or worsening atelectasis and/or infiltrate. Upper lungs are clear without pneumothor ax. There is partial visualization of surgical hardware distal right humerus.. IMPRESSION: Worsening small to moderate-sized left pleural effusion and associated left basilar atel ectasis and/or infiltrate.
== END | disposition home or self-care (01) ==
LOC: RADXRMAIN 10:41
PROVIDERS: ATTEND Internal Medicine
DX: J90 Pleural effusion, not elsewhere classified (principal); Z95.1 Presence of aortocoronary bypass graft
CPT/HCPCS: 71046

== ENCOUNTER → 2018-02-27 | Outpatient (CLI) | payer MEDICARE, BC ==
--- NOTE | 2018-02-27 15:37 | XR ---
EXAMINATION TYPE: XR chest 2V DATE OF EXAM: 02/27/2018 COMPARISON: Prior chest 02/21/2018 HISTORY: Pleural effusion TECHNIQUE: Frontal and lateral views of the chest are obtained. FINDINGS: Patient is post median sternotomy. Heart is enlarged. Bibasilar increased density is prese nt, there is interval blunting of the right costophrenic angle. No pneumothorax. Pulmonary artery may be prominent. Interstitium is increased. IMPRESSION: Findings may be indicative of congestive heart failure with bilateral pleural effusions and associated atelectasis, increasing right pleural effusion. Consider pulmonary artery hypertension .
== END | disposition home or self-care (01) ==
LOC: RADXRMAIN 11:11
PROVIDERS: ATTEND Internal Medicine Critical Care Medicine
DX: J90 Pleural effusion, not elsewhere classified (principal)
CPT/HCPCS: 71046

== ENCOUNTER → 2018-02-28 | Outpatient (CLI) | payer MEDICARE, BC ==
--- NOTE | 2018-02-28 10:45 | US ---
EXAMINATION TYPE: US chest DATE OF EXAM: 02/28/2018 COMPARISON: Chest X ray CLINICAL HISTORY: J91.8 pleural effusion. TECHNIQUE: Targeted ultrasound of the posterior lower bilateral hemithoraces EXAM MEASUREMENTS: Right Pleural Effusion pocket size: 9.2 cm Right skin surface to fluid distance: 2.4 cm Left Pleural Effusion pocket size: 9.5 cm Left skin surface to fluid distance: 2.7 cm Right side marked for possible thoracentesis outside the dept. Left side marked for possible thoracentesis outside the dept. Pulmonologists are able to review the images in the patient?s EMR. Lung noted floating in fluid bilaterally. IMPRESSIONS: 1. Bilateral pleural effusions as noted.
== END | disposition home or self-care (01) ==
LOC: RADUSWWP 10:11
PROVIDERS: ATTEND Internal Medicine Critical Care Medicine
DX: J91.8 Pleural effusion in other conditions classified elsewhere (principal); Z88.2 Allergy status to sulfonamides
CPT/HCPCS: 76604

== ENCOUNTER 2018-03-31 18:35 | Inpatient (IN) | payer MEDICARE, BC ==
--- NOTE | 2018-03-31 19:18 | ED ---
General Adult HPI - General Chief complaint: Dizziness Stated complaint: Heart Palpitations Time Seen by Provider: 03/31/18 19:09 Source: patient, RN notes reviewed, old records reviewed Mode of arrival: wheelchair Limitations: no limitations - History of Present Illness Initial comments: 72-year-old female presenting for evaluation of lightheadedness and palpitations. Patient is postop open-heart surgery with 2 vessel bypass on February 06 of this year. She has been doing well postoperatively. She has been seen by her cardiothoracic surgeon, outreach associate, primary care physician and network design architect. She has been cleared and has been feeling quite well. This morning she developed some lightheadedness she states this was worse with standing. She attention to her symptoms throughout the day, she did develop some palpitations and feeling like her heart was racing and skipping a beat. She denies any chest pain. Denies cough or fever. Denies dyspnea. Denies abdominal pain. Denies nausea vomiting or diarrhea. She states she has not had much to eat or drink today secondary to her symptoms. Denies any bright red rectal bleeding or melena. She is currently on Plavix, metoprolol 25 mg 3 times daily. - Related Data Home Medications Medication Instructions Recorded Confirmed Aspirin [Adult Low Dose Aspirin EC] 81 mg PO DAILY 02/03/18 03/31/18 Atorvastatin [Lipitor] 80 mg PO HS 02/03/18 03/31/18 Cholecalciferol [Vitamin D3] 4,000 unit PO DAILY 02/03/18 03/31/18 metFORMIN HCL [Glucophage] 1,000 mg PO BID 02/03/18 03/31/18 Clopidogrel [Plavix] 75 mg PO DAILY 03/31/18 03/31/18 Insulin Detemir [Levemir Flextouch] 20 units SQ HS 03/31/18 03/31/18 Losartan Potassium [Cozaar] 25 mg PO HS 03/31/18 03/31/18 Metoprolol Tartrate [Lopressor] 25 mg PO TID 03/31/18 03/31/18 Venlafaxine HCl [Effexor XR] 150 mg PO DAILY 03/31/18 03/31/18 Previous Rx's Medication Instructions Recorded Pantoprazole [Protonix] 40 mg PO JOSE R #30 tablet 02/10/18 Allergies Allergy/AdvReac Type Severity Reaction Status Date / Time sulfamethoxazole Allergy Rash/Hives Verified 03/31/18 19:09 [From Bactrim] trimethoprim [From Bactrim] Allergy Rash/Hives Verified 03/31/18 19:09 Review of Systems ROS Statement: Those systems with pertinent positive or pertinent negative responses have been documented in the HPI. ROS Other: All systems not noted in ROS Statement are negative. Past Medical History Past Medical History: Cancer, Diabetes Mellitus, Hyperlipidemia, Hypertension, Respiratory Disorder Additional Past Medical History / Comment(s): Hx breast cancer in 2005 with lumpectomy and radiation. BILATERAL PLEURAL EFFUSIONS. History of Any Multi-Drug Resistant Organisms: None Reported Past Surgical History: Breast Surgery, Coronary Bypass/CABG, Hernia Repair, Orthopedic Surgery, Tubal Ligation Additional Past Surgical History / Comment(s): Surgery to repair broken arm; 02/06 CABG X 2; ZELAYA to the LAD, SVG to the OM. POSSIBLE BILATERAL THORACENTESIS. Past Anesthesia/Blood Transfusion Reactions: No Reported Reaction Past Psychological History: Depression Smoking Status: Former smoker Past Alcohol Use History: Occasional Past Drug Use History: None Reported - Past Family History Sister(s) Family Medical History: Cancer, Pulmonary Embolus Additional Family Medical History / Comment(s): Lung cancer General Exam Limitations: no limitations General appearance: alert, in no apparent distress Head exam: Present: atraumatic, normocephalic Eye exam: Present: normal appearance ENT exam: Present: mucous membranes dry Neck exam: Present: normal inspection. Absent: tenderness, meningismus Respiratory exam: Present: normal lung sounds bilaterally. Absent: respiratory distress, wheezes Cardiovascular Exam: Present: normal rhythm, tachycardia GI/Abdominal exam: Present: soft. Absent: distended, tenderness, guarding, rebound Extremities exam: Present: normal inspection, normal capillary refill. Absent: pedal edema, calf tenderness Back exam: Present: normal inspection, full ROM Neurological exam: Present: alert, oriented X3, CN II-XII intact. Absent: motor sensory deficit Psychiatric exam: Present: normal affect, normal mood Skin exam: Present: warm, dry, intact. Absent: cyanosis, diaphoretic Course Vital Signs 03/31/18 03/31/18 03/31/18 18:37 20:56 22:20 Temperature 97.6 F Pulse Rate 71 93 97 Respiratory 20 17 17 Rate Blood Pressure 112/49 114/68 120/71 O2 Sat by Pulse 99 94 L 96 Oximetry - Reevaluation(s) Reevaluation #1: 03/31/182042 Case discussed with cardiology on-call, Dr. Mckee, recommends repeat 3 hr troponin, admitted for telemetry, hold heparin at this time awaiting repeat troponin. EKG Findings - EKG Comments: EKG Findings:: EKG: Sinus tachycardia, first-degree AV block, T-wave inversion in the inferior leads as well as the lateral precordial leads. Ventricular rate of 103, VA interval prolonged at 268 consistent with first-degree heart block, QRS duration is 80, QTC [address] segment elevation. These T-wave inversions are new compared to previous EKG 02/05/2018. Medical Decision Making - Medical Decision Making 72-year-old female presenting with lightheadedness and palpitations. EKG reveals sinus tachycardia with a first-degree AV block, there is no T-wave inversions seen on EKG today compared with previous from 8 weeks ago. Patient has no chest pain, no dyspnea, no arm pain though anginal equivalent. Workup in the emergency department reveals normal CBC, hemoglobin is improved from prior at 12. CMP does reveal hypomagnesemia which is replaced in the emergency department. Initial troponin is elevated 0.120, this was repeated at 3 hour jessica which is 0.18 which is stable. Initial troponin was discussed with cardiology on-call, no need for heparin at this time. Patient will be kept on telemetry, magnesium replaced, Dr. Mckee, recommends decreasing metoprolol by half, she is currently on 25 mg 3 times daily, this will be decreased to 12.5 mg 3 times daily. - Lab Data Result diagrams: 03/31/18 19:07 03/31/18 19:07 Lab Results 03/31/18 03/31/18 03/31/18 Range/Units 19:07 19:07 19:07 WBC 6.0 (3.8-10.6) k/uL RBC 4.03 (3.80-5.40) m/uL Hgb 12.0 (11.4-16.0) gm/dL Hct 36.4 (34.0-46.0) % MCV 90.4 (80.0-100.0) fL MCH 29.8 (25.0-35.0) pg MCHC 32.9 (31.0-37.0) g/dL RDW 15.6 H (11.5-15.5) % Plt Count 218 (150-450) k/uL Neutrophils % 84 % Lymphocytes % 10 % Monocytes % 4 % Eosinophils % 1 % Basophils % 0 % Neutrophils # 5.0 (1.3-7.7) k/uL Lymphocytes # 0.6 L (1.0-4.8) k/uL Monocytes # 0.2 (0-1.0) k/uL Eosinophils # 0.1 (0-0.7) k/uL Basophils # 0.0 (0-0.2) k/uL Hypochromasia Slight Poikilocytosis Slight PT (9.0-12.0) sec INR (<1.2) APTT (22.0-30.0) sec Sodium 142 (137-145) mmol/L Potassium 4.8 (3.5-5.1) mmol/L Chloride 102 (98-107) mmol/L Carbon Dioxide 21 L (22-30) mmol/L Anion Gap 19 mmol/L BUN 20 H (7-17) mg/dL Creatinine 1.04 (0.52-1.04) mg/dL Est GFR (CKD-EPI)AfAm 62 (>60 ml/min/1.73 sqM) Est GFR (CKD-EPI)NonAf 54 (>60 ml/min/1.73 sqM) Glucose 208 H (74-99) mg/dL Calcium 9.6 (8.4-10.2) mg/dL Magnesium 1.2 L (1.6-2.3) mg/dL Total Bilirubin 0.7 (0.2-1.3) mg/dL AST 28 (14-36) U/L ALT 24 (9-52) U/L Alkaline Phosphatase 72 (38-126) U/L Total Creatine Kinase 57 (30-135) U/L CK-MB (CK-2) 2.8 H (0.0-2.4) ng/mL CK-MB (CK-2) Rel Index 4.9 Troponin I 0.120 H* (0.000-0.034) ng/mL Total Protein 7.3 (6.3-8.2) g/dL Albumin 4.6 (3.5-5.0) g/dL 03/31/18 03/31/18 Range/Units 19:07 21:30 WBC (3.8-10.6) k/uL RBC (3.80-5.40) m/uL Hgb (11.4-16.0) gm/dL Hct (34.0-46.0) % MCV (80.0-100.0) fL MCH (25.0-35.0) pg MCHC (31.0-37.0) g/dL RDW (11.5-15.5) % Plt Count (150-450) k/uL Neutrophils % % Lymphocytes % % Monocytes % % Eosinophils % % Basophils % % Neutrophils # (1.3-7.7) k/uL Lymphocytes # (1.0-4.8) k/uL Monocytes # (0-1.0) k/uL Eosinophils # (0-0.7) k/uL Basophils # (0-0.2) k/uL Hypochromasia Poikilocytosis PT 10.3 (9.0-12.0) sec INR 1.1 (<1.2) APTT 22.8 (22.0-30.0) sec Sodium (137-145) mmol/L Potassium (3.5-5.1) mmol/L Chloride (98-107) mmol/L Carbon Dioxide (22-30) mmol/L Anion Gap mmol/L BUN (7-17) mg/dL Creatinine (0.52-1.04) mg/dL Est GFR (CKD-EPI)AfAm (>60 ml/min/1.73 sqM) Est GFR (CKD-EPI)NonAf (>60 ml/min/1.73 sqM) Glucose (74-99) mg/dL Calcium (8.4-10.2) mg/dL Magnesium (1.6-2.3) mg/dL Total Bilirubin (0.2-1.3) mg/dL AST (14-36) U/L ALT (9-52) U/L Alkaline Phosphatase (38-126) U/L Total Creatine Kinase (30-135) U/L CK-MB (CK-2) (0.0-2.4) ng/mL CK-MB (CK-2) Rel Index Troponin I 0.188 H* (0.000-0.034) ng/mL Total Protein (6.3-8.2) g/dL Albumin (3.5-5.0) g/dL Disposition Clinical Impression: Near syncope, Hypomagnesemia Disposition: ADMITTED IP TO THIS [facility] Condition: Stable Is patient prescribed a controlled substance at d/c from ED?: No Referrals: Pranav Doe MD [Primary Care Provider] - 1-2 days Decision to Admit Reason: Admit from EC Decision Date: 03/31/18 Decision Time: 23:03
[2018-03-31 19:30] LABS: Basophils % (A) 0 %; Eosinophils # (A) 0.1 k/uL (0-0.7); Eosinophils % (A) 1 %; HCT 36.4 % (34.0-46.0); Hypochromasia Slight; Lymphocytes # (A) 0.6 k/uL (1.0-4.8); Lymphocytes % (A) 10 %; MCH 29.8 pg (25.0-35.0); MCHC 32.9 g/dL (31.0-37.0); MCV 90.4 fL (80.0-100.0); Mean Platelet Volume 7.5; Monocytes # (A) 0.2 k/uL (0-1.0); Monocytes % (A) 4 %; Neutrophils % (A) 84 %; Platelet Count 218 k/uL (150-450); Poikilocytosis Slight; RBC 4.03 m/uL (3.80-5.40); RDW 15.6 % (11.5-15.5)
[2018-03-31 19:39] LABS: Albumin 4.6 g/dL (3.5-5.0); Calcium 9.6 mg/dL (8.4-10.2); Magnesium 1.2 mg/dL (1.6-2.3); Potassium 4.8 mmol/L (3.5-5.1); Total Bilirubin 0.7 mg/dL (0.2-1.3); Total Protein 7.3 g/dL (6.3-8.2)
--- NOTE | 2018-03-31 19:41 | XR ---
EXAMINATION TYPE: XR chest 2V DATE OF EXAM: 03/31/2018 COMPARISON: 02/27/2018 HISTORY: Dysrhythmia TECHNIQUE: Frontal and lateral views of the chest are obtained. FINDINGS: There is some infiltrate at the left lung base. There is slight blunting of the costophren ic angle. Right lung is clear. There is no heart failure. There are sternal wires. IMPRESSION: Left pleural effusion and left basilar pulmonary infiltrate is improved compared to last exam. There is clearing of right pleural fluid and infiltrate compared to last exam.
[2018-03-31 19:56] LABS: Creatine Kinase MB 2.8 ng/mL (0.0-2.4)
[2018-03-31 19:58] LABS: INR 1.1 (<1.2); Partial Thromboplastin Time 22.8 sec (22.0-30.0); Prothrombin Time 10.3 sec (9.0-12.0)
[2018-03-31] MEDS ORDERED: MAGNESIUM SULFATE-D5W PMX 1 GM in DEXTROSE/WATER 1 100ML.BAG IVPB ONE (20:07)
[2018-03-31] MEDS ORDERED: SODIUM CHLORIDE 0.9% 500 ML IV ONE (20:08)
[2018-03-31 20:35] LABS: Troponin I 0.12 ng/mL (0.000-0.034)
[2018-03-31] MEDS ORDERED: NALOXONE 0.4 MG/ML 1 ML VIAL IV PRN (22:56)
[2018-03-31 23:48] LABS: Glucose,Whole Blood 139 mg/dL (75-99)
[2018-04-01 02:22] VITALS: BMI 25.6
[2018-04-01 06:22] LABS: Glucose,Whole Blood 149 mg/dL (75-99)
[2018-04-01] MEDS: CLOPIDOGREL 75 MG TAB PO SCH (08:16)
[2018-04-01] MEDS: ASPIRIN 81 MG PO SCH (08:16)
[2018-04-01] MEDS ORDERED: METOPROLOL TARTRATE 12.5 MG TAB PO SCH (09:00)
--- NOTE | 2018-04-01 09:12 | P.CRDCN ---
History of Present Illness Consult date: 04/01/18 Requesting physician: Mita Wolf Reason for Consult (text): Dizziness Chief complaint: Dizziness History of present illness: This is a pleasant 73-year-old female with known history of diabetes, hypertension, hyperlipidemia, prior nicotine dependence, who recently underwent coronary artery bypass grafting surgery, patient underwent a ZELAYA to the LAD, saphenous vein graft to the obtuse marginal branch. She was discharged home from the hospital on February 10. Patient has overall been doing fairly well. She presented to the hospital on this occasion with symptoms of lightheadedness and feeling her heart racing fast. She denies any chest pressure heaviness, mild shortness of breath. She states that these episodes seem to happen when she stands up and goes to do something, but continues to be present when the patient rests. She denies any black stool or blood in her stool recently. EKG on arrival here showed a sinus tachycardia with a long first-degree AV block, nonspecific ST-T wave changes. Blood pressure on arrival here 112/48, heart rate in the 70s, afebrile. White blood cell count 6.0, hemoglobin 12.0, platelet count 218. Sodium 142, potassium 4.8, BUN 20, creatinine 1.0. Blood glucose on arrival 208, magnesium 1.2 on admission, 1.5 this morning. Troponins 0.12, 0.18. This morning around 8 patient was noted on the monitor to be in what appeared to be in SVT with a heart rate in the 240 range, she was quite symptomatic with the same symptoms that brought her here to the hospital. Apparently patient did have an episode around 6 AM similar to this, by the time they went to do an EKG was back in normal sinus rhythm. I did have the patient to bear down twice, she then converted back to a sinus tachycardia and her symptoms seemed to have subsided. During this episode her blood pressure was elevated at 170-180 systolic. Blood pressure now 120/70 heart rate 110. Past Medical History Past Medical History: Cancer, Diabetes Mellitus, Hyperlipidemia, Hypertension, Respiratory Disorder Additional Past Medical History / Comment(s): Hx breast cancer in 2005 with lumpectomy and radiation. BILATERAL PLEURAL EFFUSIONS. History of Any Multi-Drug Resistant Organisms: None Reported Past Surgical History: Breast Surgery, Coronary Bypass/CABG, Hernia Repair, Orthopedic Surgery, Tubal Ligation Additional Past Surgical History / Comment(s): Surgery to repair broken arm; 02/06 CABG X 2; ZELAYA to the LAD, SVG to the OM. POSSIBLE BILATERAL THORACENTESIS. Past Anesthesia/Blood Transfusion Reactions: No Reported Reaction Past Psychological History: Depression Smoking Status: Never smoker Past Alcohol Use History: Occasional Past Drug Use History: None Reported - Past Family History Sister(s) Family Medical History: Cancer, Pulmonary Embolus Additional Family Medical History / Comment(s): Lung cancer Medications and Allergies Home Medications Medication Instructions Recorded Confirmed Type Aspirin [Adult Low Dose Aspirin EC] 81 mg PO DAILY 02/03/18 03/31/18 History Atorvastatin [Lipitor] 80 mg PO HS 02/03/18 03/31/18 History Cholecalciferol [Vitamin D3] 4,000 unit PO DAILY 02/03/18 03/31/18 History metFORMIN HCL [Glucophage] 1,000 mg PO BID 02/03/18 03/31/18 History Pantoprazole [Protonix] 40 mg PO KHADAR-GEORGIANABela #30 tablet. 02/10/18 03/31/18 Rx Clopidogrel [Plavix] 75 mg PO DAILY 03/31/18 03/31/18 History Insulin Detemir [Levemir Flextouch] 20 units SQ HS 03/31/18 03/31/18 History Losartan Potassium [Cozaar] 25 mg PO HS 03/31/18 03/31/18 History Metoprolol Tartrate [Lopressor] 25 mg PO TID 03/31/18 03/31/18 History Venlafaxine HCl [Effexor XR] 150 mg PO DAILY 03/31/18 03/31/18 History Allergies Allergy/AdvReac Type Severity Reaction Status Date / Time sulfamethoxazole Allergy Rash/Hives Verified 03/31/18 19:09 [From Bactrim] trimethoprim [From Bactrim] Allergy Rash/Hives Verified 03/31/18 19:09 Physical Exam Vitals: Vital Signs Temp Pulse Pulse Resp BP BP Pulse Ox 04/01/18 08:03 97.2 F L 115 H 18 113/69 94 L 04/01/18 04:00 98.6 F 100 18 108/76 93 L 04/01/18 00:00 97.5 F L 97 18 111/71 99 03/31/18 23:36 97.5 F L 97 18 111/71 99 03/31/18 23:20 95 17 122/62 96 03/31/18 22:20 97 17 120/71 96 03/31/18 20:56 93 17 114/68 94 L 03/31/18 18:37 97.6 F 71 20 112/49 99 Intake and Output 03/31/18 04/01/18 04/01/18 22:59 06:59 14:59 Intake Total 700 20 Balance 700 20 Intake: Amount of Fluid Infused ( 700 ml) Oral 20 Other: # Voids 1 Weight 70.307 kg 67.7 kg PHYSICAL EXAMINATION: GENERAL: 72-year-old female in no acute distress at the time of my examination HEENT: Head is atraumatic, normocephalic. Pupils equal, round. Sclera anicteric. Conjunctiva are clear. Mucous membranes of the mouth are moist. Neck is supple. There is no elevated jugular venous pressure. No carotid bruit is heard. HEART EXAMINATION: Heart S1, S2 normal. No murmur or gallop heard. CHEST EXAMINATION: Lungs clear with mild diminished air entry to the bases. ABDOMEN: Soft, nontender. Bowel sounds are heard. No organomegaly noted. EXTREMITIES: 2+ peripheral pulses with no evidence of peripheral edema and no calf tenderness noted. NEUROLOGIC patient is awake, alert and oriented X3. . Results 03/31/18 19:07 03/31/18 19:07 Cardiac Enzymes 03/31/18 03/31/18 03/31/18 Range/Units 19:07 19:07 21:30 AST 28 (14-36) U/L CK-MB (CK-2) 2.8 H (0.0-2.4) ng/mL Troponin I 0.120 H* 0.188 H* (0.000-0.034) ng/mL Coagulation 03/31/18 Range/Units 19:07 PT 10.3 (9.0-12.0) sec APTT 22.8 (22.0-30.0) sec CBC 03/31/18 Range/Units 19:07 WBC 6.0 (3.8-10.6) k/uL RBC 4.03 (3.80-5.40) m/uL Hgb 12.0 (11.4-16.0) gm/dL Hct 36.4 (34.0-46.0) % Plt Count 218 (150-450) k/uL Comprehensive Metabolic Panel 03/31/18 Range/Units 19:07 Sodium 142 (137-145) mmol/L Potassium 4.8 (3.5-5.1) mmol/L Chloride 102 (98-107) mmol/L Carbon Dioxide 21 L (22-30) mmol/L BUN 20 H (7-17) mg/dL Creatinine 1.04 (0.52-1.04) mg/dL Glucose 208 H (74-99) mg/dL Calcium 9.6 (8.4-10.2) mg/dL AST 28 (14-36) U/L ALT 24 (9-52) U/L Alkaline Phosphatase 72 (38-126) U/L Total Protein 7.3 (6.3-8.2) g/dL Albumin 4.6 (3.5-5.0) g/dL Current Medications Generic Name Dose Route Start Last Admin Trade Name Freq PRN Reason Stop Dose Admin Aspirin 81 mg 04/01/18 09:00 04/01/18 08:16 Aspirin PO 81 mg DAILY TORIBIO Administration Atorvastatin Calcium 80 mg 04/01/18 21:00 Lipitor PO HS TORIBIO Clopidogrel Bisulfate 75 mg 04/01/18 09:00 04/01/18 08:16 Plavix PO 75 mg DAILY TORIBIO Administration Insulin Detemir 20 unit 04/01/18 21:00 Levemir SQ HS TORIBIO Losartan Potassium 25 mg 04/01/18 21:00 Cozaar PO HS TROIBIO Metoprolol Tartrate 12.5 mg 04/01/18 09:00 04/01/18 08:16 Lopressor PO 12.5 mg TID TORIBIO Administration Naloxone HCl 0.2 mg 03/31/18 22:56 Narcan IV Q2M PRN Opioid Reversal Intake and Output 03/31/18 04/01/18 04/01/18 22:59 06:59 14:59 Intake Total 700 20 Balance 700 20 Intake: Amount of Fluid Infused ( 700 ml) Oral 20 Other: # Voids 1 Weight 70.307 kg 67.7 kg 03/31/18 19:07 03/31/18 19:07 EKG Interpretations (text) EKG on arrival here showed a sinus tachycardia with first-degree AV block and nonspecific ST-T wave changes. Assessment and Plan Plan: Assessment and plan #1 symptoms of lightheadedness and palpitations, patient did have episode of supraventricular tachycardia with a heart rate in the 240s, produced similar changes to the patient's presentation. Currently she is in a sinus tachycardia. Initial EKG showed sinus tachycardia with first-degree AV block and nonspecific ST-T wave changes. #2 abnormal troponins, 0.12, 0.18. Patient denies any chest discomfort, abnormality in troponin could be secondary to tachycardia. #3 hypomagnesemia #4 recent coronary artery bypass grafting surgery at which time patient underwent a ZELAYA to the LAD and saphenous vein graft to the obtuse marginal branch #5 hypertension #6 hyperlipidemia #7 history of smoking Plan We'll replace the patient's magnesium, her dose of beta stiven had been increased in the emergency room, we will increase it back to 25 mg by mouth 3 times a day today. Repeat a third troponin, obtain an echocardiogram with Doppler study. Continue baby aspirin daily along with Lipitor, Plavix, Cozaar. Further recommendations to follow. DNP note has been reviewed, I agree with a documented findings and plan of care. Patient was seen and examined.
[2018-04-01] MEDS: MAGNESIUM SULFATE-D5W PMX 1 GM in DEXTROSE/WATER 1 100ML.BAG IVPB SCH ×2 (10:15→11:48)
--- NOTE | 2018-04-01 10:33 | ECHOF ---
Referral Reason:svt MEASUREMENTS -------- HEIGHT: 162.6 cm WEIGHT: 67.6 kg BP: RVIDd: 2.9 cm (< 3.3) IVSd: 1.5 cm (0.6 - 1.1) LVIDd: 2.9 cm (3.9 - 5.3) LVPWd: 1.6 cm (0.6 - 1.1) IVSs: 1.9 cm LVIDs: 2.2 cm LVPWs: 2.0 cm LAESV Index (A-L): 36.20 ml/m Ao Diam: 3.2 cm (2.0 - 3.7) AV Cusp: 1.0 cm (1.5 - 2.6) LA Diam: 4.2 cm (2.7 - 3.8) MV EXCURSION: 23.601 mm (> 18.000) MV EF SLOPE: 346 mm/s (70 - 150) EPSS: 0.5 cm MV E Timmy: 1.18 m/s MV DecT: 104 ms MV A Timmy: 0.70 m/s MV E/A Ratio: 1.68 AV maxP.84 mmHg AV meanP.16 mmHg RAP: 5.00 mmHg RVSP: 29.15 mmHg FINDINGS -------- Resting tachycardia (HR>100bpm). This was a technically good study. The left ventricular size is normal. There is moderate concentric left ventricular hypertrophy. O verall left ventricular systolic function is low-normal with, an EF between 50 - 55 %. There is par adoxical/dysynergic septal motion consistent with post-operative status. The right ventricle is normal in size and function. LA is moderately dilated 34-39 ml/m2 The right atrium is normal in size. Aortic valve is trileaflet and is mildly thickened. There is mild aortic stenosis present. Peak/m reta gradient across the Aortic Valve is 18.84mmHg / 12.16mmHg. The mitral valve leaflets are mildly thickened. Mild mitral annular calcification present. Severe mitral regurgitation is present. Moderate tricuspid regurgitation present. The right ventricular systolic pressure, as measured by D oppler, is 29.15mmHg. Pulmonic valve appears structurally normal. The aortic root size is normal. Normal inferior vena cava with normal inspiratory collapse consistent with estimated right atrial pre ssure of 5 mmHg. There is a trivial pericardial effusion present. CONCLUSIONS -------- 1. Resting tachycardia (HR>100bpm). 2. This was a technically good study. 3. The left ventricular size is normal. 4. There is moderate concentric left ventricular hypertrophy. 5. Overall left ventricular systolic function is low-normal with, an EF between 50 - 55 %. 6. There is paradoxical/dysynergic septal motion consistent with post-operative status. 7. The right ventricle is normal in size and function. 8. LA is moderately dilated 34-39 ml/m2 9. The right atrium is normal in size. 10. Aortic valve is trileaflet and is mildly thickened. 11. There is mild aortic stenosis present. 12. Peak/mean gradient across the Aortic Valve is 18.84mmHg / 12.16mmHg. 13. The mitral valve leaflets are mildly thickened. 14. Mild mitral annular calcification present. 15. Severe mitral regurgitation is present. 16. Moderate tricuspid regurgitation present. 17. The right ventricular systolic pressure, as measured by Doppler, is 29.15mmHg. 18. Pulmonic valve appears structurally normal. 19. The aortic root size is normal. 20. Normal inferior vena cava with normal inspiratory collapse consistent with estimated right atrial pressure of 5 mmHg. 21. There is a trivial pericardial effusion present. LINEMAN: Brie Douglas RDCS
[2018-04-01 11:42] LABS: Glucose,Whole Blood 280 mg/dL (75-99)
[2018-04-01] MEDS: INSULIN ASPART 100 UNIT/ML 1 ML 10 ML VIAL SQ SCH ×3 (12:18→21:33)
--- NOTE | 2018-04-01 12:56 | P.HPIM ---
History of Present Illness Patient is a pleasant 73-year-old female has a recent coronary artery bypass grafting came in with complains of lightheadedness patient was tachycardic. Last night patient went into some furniture tachycardia with heart rate going above 200. Patient is weaker stiven dose was increased. And the the tachycardia and SVT is probably contributing to her confusion patient denied any chest pressure patient denied any shortness of breath developed lightheadedness. Denied any fever chills nausea vomiting. Patient will be monitored overnight depending on her clinical course patient probably can be discharged tomorrow or will need any prestudy. Cardiac evaluated the patient patient has minimally elevated troponins which are considered secondary to SVT during the episode patient did complain of some chest pressure like sensation. Patient is presently sinus tachycardia with heart rate in low 100s Review of Systems REVIEW OF SYSTEMS: CONSTITUTIONAL: No fever, no malaise, no fatigue. HEENT: No recent visual problems or hearing problems. Denied any sore throat. CARDIOVASCULAR: As mentioned in HPI PULMONARY: No shortness of breath, no cough, no hemoptysis. GASTROINTESTINAL: No diarrhea, no nausea, no vomiting, no abdominal pain. Normoactive bowel sounds. NEUROLOGICAL: No headaches, no weakness, no numbness. HEMATOLOGICAL: Denies any bleeding or petechiae. GENITOURINARY: Denies any burning micturition, frequency, or urgency. MUSCULOSKELETAL/RHEUMATOLOGICAL: Denies any joint pain, swelling, or any muscle pain. ENDOCRINE: Denies any polyuria or polydipsia. The rest of the 14-point review of systems is negative. Past Medical History Past Medical History: Cancer, Diabetes Mellitus, Hyperlipidemia, Hypertension, Respiratory Disorder Additional Past Medical History / Comment(s): Hx breast cancer in 2005 with lumpectomy and radiation. BILATERAL PLEURAL EFFUSIONS. History of Any Multi-Drug Resistant Organisms: None Reported Past Surgical History: Breast Surgery, Coronary Bypass/CABG, Hernia Repair, Orthopedic Surgery, Tubal Ligation Additional Past Surgical History / Comment(s): Surgery to repair broken arm; 02/06 CABG X 2; ZELAYA to the LAD, SVG to the OM. POSSIBLE BILATERAL THORACENTESIS. Past Anesthesia/Blood Transfusion Reactions: No Reported Reaction Past Psychological History: Depression Smoking Status: Never smoker Past Alcohol Use History: Occasional Past Drug Use History: None Reported - Past Family History Sister(s) Family Medical History: Cancer, Pulmonary Embolus Additional Family Medical History / Comment(s): Lung cancer Medications and Allergies Home Medications Medication Instructions Recorded Confirmed Type Aspirin [Adult Low Dose Aspirin EC] 81 mg PO DAILY 02/03/18 03/31/18 History Atorvastatin [Lipitor] 80 mg PO HS 02/03/18 03/31/18 History Cholecalciferol [Vitamin D3] 4,000 unit PO DAILY 02/03/18 03/31/18 History metFORMIN HCL [Glucophage] 1,000 mg PO BID 02/03/18 03/31/18 History Pantoprazole [Protonix] 40 mg PO AC-BRKFST #30 tablet. 02/10/18 03/31/18 Rx Clopidogrel [Plavix] 75 mg PO DAILY 03/31/18 03/31/18 History Insulin Detemir [Levemir Flextouch] 20 units SQ HS 03/31/18 03/31/18 History Losartan Potassium [Cozaar] 25 mg PO HS 03/31/18 03/31/18 History Metoprolol Tartrate [Lopressor] 25 mg PO TID 03/31/18 03/31/18 History Venlafaxine HCl [Effexor XR] 150 mg PO DAILY 03/31/18 03/31/18 History Allergies Allergy/AdvReac Type Severity Reaction Status Date / Time sulfamethoxazole Allergy Rash/Hives Verified 03/31/18 19:09 [From Bactrim] trimethoprim [From Bactrim] Allergy Rash/Hives Verified 03/31/18 19:09 Physical Exam Vitals: Vital Signs Temp Pulse Pulse Resp BP BP Pulse Ox 04/01/18 12:29 98.4 F 116 H 18 133/79 93 L 04/01/18 08:03 97.2 F L 115 H 18 113/69 94 L 04/01/18 04:00 98.6 F 100 18 108/76 93 L 04/01/18 00:00 97.5 F L 97 18 111/71 99 03/31/18 23:36 97.5 F L 97 18 111/71 99 03/31/18 23:20 95 17 122/62 96 03/31/18 22:20 97 17 120/71 96 03/31/18 20:56 93 17 114/68 94 L 03/31/18 18:37 97.6 F 71 20 112/49 99 Intake and Output 03/31/18 04/01/18 04/01/18 22:59 06:59 14:59 Intake Total 700 20 Balance 700 20 Intake: Amount of Fluid Infused ( 700 ml) Oral 20 Other: # Voids 1 Weight 70.307 kg 67.7 kg PHYSICAL EXAMINATION: GENERAL: The patient is alert and oriented x3, not in any acute distress. Well developed, well nourished. HEENT: Pupils are round and equally reacting to light. EOMI. No scleral icterus. No conjunctival pallor. Normocephalic, atraumatic. No pharyngeal erythema. No thyromegaly. CARDIOVASCULAR: S1 and S2 present. No murmurs, rubs, or gallops. Tachycardic regular rhythm PULMONARY: Chest is clear to auscultation, no wheezing or crackles. ABDOMEN: Soft, nontender, nondistended, normoactive bowel sounds. No palpable organomegaly. MUSCULOSKELETAL: No joint swelling or deformity. EXTREMITIES: No cyanosis, clubbing, or pedal edema. NEUROLOGICAL: Gross neurological examination did not reveal any focal deficits. SKIN: No rashes. Results CBC & Chem 7: 03/31/18 19:07 03/31/18 19:07 Labs: Abnormal Lab Results - Last 24 Hours (Table) 03/31/18 03/31/18 03/31/18 Range/Units 19:07 19:07 19:07 RDW 15.6 H (11.5-15.5) % Lymphocytes # 0.6 L (1.0-4.8) k/uL Carbon Dioxide 21 L (22-30) mmol/L BUN 20 H (7-17) mg/dL Glucose 208 H (74-99) mg/dL POC Glucose (mg/dL) (75-99) mg/dL Magnesium 1.2 L (1.6-2.3) mg/dL CK-MB (CK-2) 2.8 H (0.0-2.4) ng/mL Troponin I 0.120 H* (0.000-0.034) ng/mL 03/31/18 03/31/18 04/01/18 Range/Units 21:30 23:42 06:20 RDW (11.5-15.5) % Lymphocytes # (1.0-4.8) k/uL Carbon Dioxide (22-30) mmol/L BUN (7-17) mg/dL Glucose (74-99) mg/dL POC Glucose (mg/dL) 139 H 149 H (75-99) mg/dL Magnesium (1.6-2.3) mg/dL CK-MB (CK-2) (0.0-2.4) ng/mL Troponin I 0.188 H* (0.000-0.034) ng/mL 04/01/18 04/01/18 Range/Units 07:46 11:40 RDW (11.5-15.5) % Lymphocytes # (1.0-4.8) k/uL Carbon Dioxide (22-30) mmol/L BUN (7-17) mg/dL Glucose (74-99) mg/dL POC Glucose (mg/dL) 280 H (75-99) mg/dL Magnesium 1.5 L (1.6-2.3) mg/dL CK-MB (CK-2) (0.0-2.4) ng/mL Troponin I (0.000-0.034) ng/mL Thrombosis Risk Factor Assmnt - Choose All That Apply Each Risk Factor Represents 2 Points: Age 61-74 years Thrombosis Risk Factor Assessment Total Risk Factor Score: 2 Thrombosis Risk Factor Assessment Level: Low Risk Assessment and Plan Plan: -Lightheadedness probably secondary to supranuclear tachycardia beta stiven dose is being increased to will be monitored overnight -Elevated troponin secondary to episodes of tachycardia cardiology evaluated the patient -Hypomagnesemia will be supplemented -Recent CABG continue with the antiplatelet therapy beta stiven and statins. -Hypertension -Hyperlipidemia -Type 2 diabetes mellitus: Continue with sliding scale insulin and her home regimen titration depending on her blood sugars here.
--- NOTE | 2018-04-01 13:27 | P.CRDCN ---
History of Present Illness History of present illness: Patient admitted with recurrent dizzy spells on beta blockers Baseline 12-lead ECG shows sinus rhythm and sinus tachycardia with a prolonged LA interval anywhere between 200 ms to 270 ms Documented episodes of supraventricular tachycardia at 160 beats a minute terminated with the Valsalva maneuver, refractory to therapy Detailed discussion with the patient Suggest Increase beta blockers for now It is quite possible that she either has an abnormal fast pathway or independently conducts down the slow pathway in sinus rhythm and hence a longer LA interval. I have not seen any abrupt changes in LA interval. I would recommend that she proceed with a diagnostic EP study and SVT ablation for drug refractory SVT Past Medical History Past Medical History: Cancer, Diabetes Mellitus, Hyperlipidemia, Hypertension, Respiratory Disorder Additional Past Medical History / Comment(s): Hx breast cancer in 2005 with lumpectomy and radiation. BILATERAL PLEURAL EFFUSIONS. History of Any Multi-Drug Resistant Organisms: None Reported Past Surgical History: Breast Surgery, Coronary Bypass/CABG, Hernia Repair, Orthopedic Surgery, Tubal Ligation Additional Past Surgical History / Comment(s): Surgery to repair broken arm; 02/06 CABG X 2; ZELAYA to the LAD, SVG to the OM. POSSIBLE BILATERAL THORACENTESIS. Past Anesthesia/Blood Transfusion Reactions: No Reported Reaction Past Psychological History: Depression Smoking Status: Never smoker Past Alcohol Use History: Occasional Past Drug Use History: None Reported - Past Family History Sister(s) Family Medical History: Cancer, Pulmonary Embolus Additional Family Medical History / Comment(s): Lung cancer Medications and Allergies Home Medications Medication Instructions Recorded Confirmed Type Aspirin [Adult Low Dose Aspirin EC] 81 mg PO DAILY 02/03/18 03/31/18 History Atorvastatin [Lipitor] 80 mg PO HS 02/03/18 03/31/18 History Cholecalciferol [Vitamin D3] 4,000 unit PO DAILY 02/03/18 03/31/18 History metFORMIN HCL [Glucophage] 1,000 mg PO BID 02/03/18 03/31/18 History Pantoprazole [Protonix] 40 mg PO KHADAR-DAYAKFST #30 tablet. 02/10/18 03/31/18 Rx Clopidogrel [Plavix] 75 mg PO DAILY 03/31/18 03/31/18 History Insulin Detemir [Levemir Flextouch] 20 units SQ HS 03/31/18 03/31/18 History Losartan Potassium [Cozaar] 25 mg PO HS 03/31/18 03/31/18 History Metoprolol Tartrate [Lopressor] 25 mg PO TID 03/31/18 03/31/18 History Venlafaxine HCl [Effexor XR] 150 mg PO DAILY 03/31/18 03/31/18 History Allergies Allergy/AdvReac Type Severity Reaction Status Date / Time sulfamethoxazole Allergy Rash/Hives Verified 03/31/18 19:09 [From Bactrim] trimethoprim [From Bactrim] Allergy Rash/Hives Verified 03/31/18 19:09 Physical Exam Vitals: Vital Signs Temp Pulse Pulse Resp BP BP Pulse Ox 04/01/18 12:29 98.4 F 116 H 18 133/79 93 L 04/01/18 08:03 97.2 F L 115 H 18 113/69 94 L 04/01/18 04:00 98.6 F 100 18 108/76 93 L 04/01/18 00:00 97.5 F L 97 18 111/71 99 03/31/18 23:36 97.5 F L 97 18 111/71 99 03/31/18 23:20 95 17 122/62 96 03/31/18 22:20 97 17 120/71 96 03/31/18 20:56 93 17 114/68 94 L 03/31/18 18:37 97.6 F 71 20 112/49 99 Intake and Output 03/31/18 04/01/18 04/01/18 22:59 06:59 14:59 Intake Total 700 140 Balance 700 140 Intake: Amount of Fluid Infused ( 700 ml) Oral 140 Other: # Voids 1 1 Weight 70.307 kg 67.7 kg Results 03/31/18 19:07 03/31/18 19:07 Cardiac Enzymes 03/31/18 03/31/18 03/31/18 Range/Units 19:07 19:07 21:30 AST 28 (14-36) U/L CK-MB (CK-2) 2.8 H (0.0-2.4) ng/mL Troponin I 0.120 H* 0.188 H* (0.000-0.034) ng/mL Coagulation 03/31/18 Range/Units 19:07 PT 10.3 (9.0-12.0) sec APTT 22.8 (22.0-30.0) sec CBC 03/31/18 Range/Units 19:07 WBC 6.0 (3.8-10.6) k/uL RBC 4.03 (3.80-5.40) m/uL Hgb 12.0 (11.4-16.0) gm/dL Hct 36.4 (34.0-46.0) % Plt Count 218 (150-450) k/uL Comprehensive Metabolic Panel 03/31/18 Range/Units 19:07 Sodium 142 (137-145) mmol/L Potassium 4.8 (3.5-5.1) mmol/L Chloride 102 (98-107) mmol/L Carbon Dioxide 21 L (22-30) mmol/L BUN 20 H (7-17) mg/dL Creatinine 1.04 (0.52-1.04) mg/dL Glucose 208 H (74-99) mg/dL Calcium 9.6 (8.4-10.2) mg/dL AST 28 (14-36) U/L ALT 24 (9-52) U/L Alkaline Phosphatase 72 (38-126) U/L Total Protein 7.3 (6.3-8.2) g/dL Albumin 4.6 (3.5-5.0) g/dL Current Medications Generic Name Dose Route Start Last Admin Trade Name Freq PRN Reason Stop Dose Admin Aspirin 81 mg 04/01/18 09:00 04/01/18 08:16 Aspirin PO 81 mg DAILY TORIBIO Administration Atorvastatin Calcium 80 mg 04/01/18 21:00 Lipitor PO HS [facility] Clopidogrel Bisulfate 75 mg 04/01/18 09:00 04/01/18 08:16 Plavix PO 75 mg DAILY TORIBIO Administration Insulin Aspart 0 unit 04/01/18 12:30 04/01/18 12:18 Novolog SQ 4 unit ACHS TORIBIO Administration Protocol Insulin Detemir 20 unit 04/01/18 21:00 Levemir SQ HS [facility] Losartan Potassium 25 mg 04/01/18 21:00 Cozaar PO HS [facility] Metoprolol Tartrate 50 mg 04/01/18 21:00 Lopressor PO BID TORIBIO Naloxone HCl 0.2 mg 03/31/18 22:56 Narcan IV Q2M PRN Opioid Reversal Pantoprazole Sodium 40 mg 04/02/18 07:30 Protonix PO AC-BRKFST TORIBIO Venlafaxine HCl 150 mg 04/02/18 09:00 Effexor Xr PO DAILY TORIBIO Intake and Output 03/31/18 04/01/18 04/01/18 22:59 06:59 14:59 Intake Total 700 140 Balance 700 140 Intake: Amount of Fluid Infused ( 700 ml) Oral 140 Other: # Voids 1 1 Weight 70.307 kg 67.7 kg 03/31/18 19:07 03/31/18 19:07
[2018-04-01 14:47] LABS: Appearance,Urine Clear (Clear); Bilirubin,Urine Negative (Negative); Color,Urine Yellow; Glucose,Urine (UA) 4+ (Negative); Ketones,Urine Negative (Negative); Protein,Urine Trace (Negative); Specific Gravity,Urine 1.012 (1.001-1.035)
[2018-04-01 14:48] LABS: Amorphous Sediment,Urine Occasional /hpf; Bacteria,Urine Rare /hpf; Blood,Urine Negative (Negative); Hyaline Casts,Urine 15 /lpf (0-2); Leukocyte Esterase,Urine Large (Negative); Mucus,Urine Rare /hpf; Nitrite,Urine Negative (Negative); RBC,Urine 3 /hpf (0-5); Squamous Epithelial Cell,Urine 4 /hpf (0-4); Urobilinogen,Urine <2.0 mg/dL (<2.0); WBC,Urine 28 /hpf (0-5)
[2018-04-01] MEDS ORDERED: METOPROLOL TARTRATE 25 MG TAB PO SCH (16:00)
[2018-04-01 16:42] LABS: Glucose,Whole Blood 223 mg/dL (75-99)
[2018-04-01] MEDS: METOPROLOL TARTRATE 50 MG TAB PO SCH (17:18)
[2018-04-01 18:24] LABS: Magnesium 1.8 mg/dL (1.6-2.3); Potassium 4.3 mmol/L (3.5-5.1)
[2018-04-01 20:58] LABS: Glucose,Whole Blood 214 mg/dL (75-99)
[2018-04-01] MEDS ORDERED: INSULIN DETEMIR 100 UNIT/ML 10 ML VIAL SQ SCH (21:00)
[2018-04-01] MEDS: ATORVASTATIN 80 MG TAB PO SCH (21:33)
[2018-04-01 22:59] LABS: Hemoglobin A1C 6.1 % (4.0-6.0)
[2018-04-01] MEDS: LOSARTAN 25 MG TAB PO SCH (23:04)
[2018-04-02 05:57] LABS: Glucose,Whole Blood 188 mg/dL (75-99)
[2018-04-02] MEDS ORDERED: INSULIN DETEMIR 100 UNIT/ML 10 ML VIAL SQ SCH (06:10)
[2018-04-02] MEDS: PANTOPRAZOLE 40 MG TABLET PO SCH (06:41)
[2018-04-02] MEDS: INSULIN ASPART 100 UNIT/ML 1 ML 10 ML VIAL SQ SCH ×4 (06:41→21:54)
[2018-04-02] MEDS: CLOPIDOGREL 75 MG TAB PO SCH (08:28)
[2018-04-02] MEDS: ASPIRIN 81 MG PO SCH (08:29)
[2018-04-02] MEDS: METOPROLOL TARTRATE 50 MG TAB PO SCH (08:29)
[2018-04-02] MEDS: VENLAFAXINE HCL ER 150 MG CAP PO SCH (08:29)
[2018-04-02 11:51] LABS: Glucose,Whole Blood 281 mg/dL (75-99)
[2018-04-02] MEDS: APIXABAN 5 MG TAB PO SCH ×2 (12:25→21:54)
--- NOTE | 2018-04-02 12:48 | P.PN ---
Subjective Patient is admitted for supraventricular tachycardia heart rate remains in low 100s, dose of metoprolol is being increased. Electrolytes are being corrected. Need to monitor 1 more night because of uncontrolled heart rate at rest. Constitutional: Denied any fatigue denied any fever. Cardio vascular: denied any chest pain, palpitations Gastrointestinal denied any nausea vomiting Pulmonary: Denied any shortness of breath cough Neurologic denied any new focal deficits Objective - Vital Signs Vital signs: Vital Signs Temp 97.2 F L 04/02/18 08:00 Pulse 130 H 04/02/18 08:00 Resp 14 04/02/18 08:00 BP 132/84 04/02/18 08:00 Pulse Ox 96 04/02/18 08:00 Intake & Output 04/01/18 04/02/18 04/02/18 18:59 06:59 18:59 Intake Total 580 240 Balance 580 240 Weight 67.7 kg Intake: Intake, IV Titration 200 Amount Magnesium Sulfate-D5w Pmx 200 1 gm In Dextrose/Water 1 100ml.bag @ 100 mls/hr IVPB Q1H TORIBIO Rx#: [id number] Oral 380 240 Other: # Voids 2 1 1 - Exam PHYSICAL EXAMINATION: GENERAL: The patient is alert and oriented x3, not in any acute distress. Well developed, well nourished. HEENT: Pupils are round and equally reacting to light. EOMI. No scleral icterus. No conjunctival pallor. Normocephalic, atraumatic. No pharyngeal erythema. No thyromegaly. CARDIOVASCULAR: S1 and S2 present. No murmurs, rubs, or gallops. Tachycardic regular rhythm PULMONARY: Chest is clear to auscultation, no wheezing or crackles. ABDOMEN: Soft, nontender, nondistended, normoactive bowel sounds. No palpable organomegaly. MUSCULOSKELETAL: No joint swelling or deformity. EXTREMITIES: No cyanosis, clubbing, or pedal edema. NEUROLOGICAL: Gross neurological examination did not reveal any focal deficits. SKIN: No rashes. - Labs CBC & Chem 7: 03/31/18 19:07 04/01/18 17:56 Labs: Abnormal Lab Results - Last 24 Hours (Table) 03/31/18 04/01/18 04/01/18 Range/Units 19:07 14:20 16:22 POC Glucose (mg/dL) 223 H (75-99) mg/dL Hemoglobin A1c 6.1 H (4.0-6.0) % Urine Protein Trace H (Negative) Urine Glucose (UA) 4+ H (Negative) Ur Leukocyte Esterase Large H (Negative) Urine WBC 28 H (0-5) /hpf Amorphous Sediment Occasional H (None) /hpf Urine Bacteria Rare H (None) /hpf Hyaline Casts 15 H (0-2) /lpf Urine Mucus Rare H (None) /hpf 04/01/18 04/02/18 04/02/18 Range/Units 20:55 05:55 11:30 POC Glucose (mg/dL) 214 H 188 H 281 H (75-99) mg/dL Hemoglobin A1c (4.0-6.0) % Urine Protein (Negative) Urine Glucose (UA) (Negative) Ur Leukocyte Esterase (Negative) Urine WBC (0-5) /hpf Amorphous Sediment (None) /hpf Urine Bacteria (None) /hpf Hyaline Casts (0-2) /lpf Urine Mucus (None) /hpf Assessment and Plan Plan: -Lightheadedness probably secondary to ventricular tachycardia beta stiven dose is being increased to will be monitored overnight -Elevated troponin secondary to episodes of tachycardia cardiology evaluated the patient -Hypomagnesemia, improved with supplementation -Recent CABG continue with the antiplatelet therapy beta stiven and statins. -Hypertension -Hyperlipidemia -Type 2 diabetes mellitus: Continue with sliding scale insulin and her home regimen titration depending on her blood sugars here.
--- NOTE | 2018-04-02 12:51 | P.PN ---
Subjective While on a higher dose of beta blockers a 50 g twice daily it became evident telemetry that this lady does not have AV node reentry but rather an atrial tachycardia with 21 block with the P-wave was very well hidden within the QRS simply giving the appearance of a mildly prolonged SD interval. A 12-lead ECG was performed and the left atrial tachycardia, sustained and persistent was documented. Resting heart rates are anywhere from 90-110 beats a minute with a rapid rise in heart rate with mild exertion On examination heart sounds are regular no murmurs no gallop or rub Breath sounds are clear no rhonchi no crackles Abdomen soft nontender Extremities warm no edema Afebrile 97.2F pulse rate 120 blood pressure 132/84 mmHg normal respirations Impression Left atrial tachycardia Status post coronary artery bypass grafting March 01 but apparently a maze procedure was not performed Plan Stop aspirin and continue Plavix Start ELIQUIS 5 g twice daily for stroke prevention I will give her 1 more month on ELIQUIS and then proceed with a left atrial tachycardia/A. fib ablation This was discussed with the patient Objective - Vital Signs Vital signs: Vital Signs Temp 97.2 F L 04/02/18 08:00 Pulse 130 H 04/02/18 08:00 Resp 14 04/02/18 08:00 BP 132/84 04/02/18 08:00 Pulse Ox 96 04/02/18 08:00 Intake & Output 04/01/18 04/02/18 04/02/18 18:59 06:59 18:59 Intake Total 580 240 Balance 580 240 Weight 67.7 kg Intake: Intake, IV Titration 200 Amount Magnesium Sulfate-D5w Pmx 200 1 gm In Dextrose/Water 1 100ml.bag @ 100 mls/hr IVPB Q1H TORIBIO Rx#: [id number] Oral 380 240 Other: # Voids 2 1 1 - Labs CBC & Chem 7: 03/31/18 19:07 04/01/18 17:56 Labs: Abnormal Lab Results - Last 24 Hours (Table) 03/31/18 04/01/18 04/01/18 Range/Units 19:07 14:20 16:22 POC Glucose (mg/dL) 223 H (75-99) mg/dL Hemoglobin A1c 6.1 H (4.0-6.0) % Urine Protein Trace H (Negative) Urine Glucose (UA) 4+ H (Negative) Ur Leukocyte Esterase Large H (Negative) Urine WBC 28 H (0-5) /hpf Amorphous Sediment Occasional H (None) /hpf Urine Bacteria Rare H (None) /hpf Hyaline Casts 15 H (0-2) /lpf Urine Mucus Rare H (None) /hpf 04/01/18 04/02/18 04/02/18 Range/Units 20:55 05:55 11:30 POC Glucose (mg/dL) 214 H 188 H 281 H (75-99) mg/dL Hemoglobin A1c (4.0-6.0) % Urine Protein (Negative) Urine Glucose (UA) (Negative) Ur Leukocyte Esterase (Negative) Urine WBC (0-5) /hpf Amorphous Sediment (None) /hpf Urine Bacteria (None) /hpf Hyaline Casts (0-2) /lpf Urine Mucus (None) /hpf
[2018-04-02 16:42] LABS: Glucose,Whole Blood 146 mg/dL (75-99)
[2018-04-02 21:33] LABS: Glucose,Whole Blood 184 mg/dL (75-99)
[2018-04-02] MEDS: LOSARTAN 25 MG TAB PO SCH (21:54)
[2018-04-02] MEDS: ATORVASTATIN 80 MG TAB PO SCH (21:54)
[2018-04-02] MEDS: METOPROLOL TARTRATE 25 MG TAB PO SCH (21:55)
[2018-04-03 03:37] VITALS: RESP 16
[2018-04-03 05:46] LABS: Glucose,Whole Blood 144 mg/dL (75-99)
[2018-04-03] MEDS: INSULIN ASPART 100 UNIT/ML 1 ML 10 ML VIAL SQ SCH (06:21)
[2018-04-03] MEDS: PANTOPRAZOLE 40 MG TABLET PO SCH (06:21)
[2018-04-03] MEDS: APIXABAN 5 MG TAB PO SCH (08:11)
[2018-04-03] MEDS: CLOPIDOGREL 75 MG TAB PO SCH (08:12)
[2018-04-03] MEDS: METOPROLOL TARTRATE 25 MG TAB PO SCH (08:12)
[2018-04-03] MEDS: VENLAFAXINE HCL ER 150 MG CAP PO SCH (08:12)
[2018-04-03 08:15] VITALS: BP 105/68; PULSE 115; TEMP 96.8
[2018-04-03] MEDS ORDERED: DIGOXIN 125 MCG TAB PO SCH (10:45)
[2018-04-03 11:41] LABS: Glucose,Whole Blood 174 mg/dL (75-99)
--- NOTE | 2018-04-03 11:57 | P.PN ---
Subjective Patient is doing well. Resting heart rate is between 70 and 80. Remains in an atrial tachycardia. With mild exertion heart rates increase greater than 120 beats a minute despite metoprolol 75 g twice daily. Low blood pressure. On examination at sounds irregular but normal Sounds are clear no rhonchi no crackles Abdomen soft nontender 70s warm no edema Impression Post CABG atrial tachycardia likely left atrial Started on ELIQUIS 5 g twice daily Scheduled for an atrial tachycardia/A. fib ablation on May 05 Patient instructed to continue ELIQUIS perioperatively. She should not stop ELIQUIS prior to the procedure and should continue ELIQUIS following that Low dose digoxin added today It is unlikely that any medical intervention will control her heart rate adequately. I expect that with mild activity she will develop a rapid ventricular response secondary to the atrial tachycardia I do not recommend electrical cardioversion. I would like to mapped the arrhythmia after 4 weeks of anticoagulation Objective - Vital Signs Vital signs: Vital Signs Temp 96.8 F L 04/03/18 08:00 Pulse 115 H 04/03/18 08:00 Resp 16 04/03/18 08:00 BP 105/68 04/03/18 08:00 Pulse Ox 96 04/03/18 08:00 Intake & Output 04/02/18 04/03/18 04/03/18 18:59 06:59 18:59 Intake Total 1520 240 Balance 1520 240 Weight 69.5 kg Intake: Oral 1520 240 Other: Voiding Method Toilet Toilet # Voids 1 2 1 # Bowel Movements 0 - Labs CBC & Chem 7: 03/31/18 19:07 04/01/18 17:56 Labs: Abnormal Lab Results - Last 24 Hours (Table) 04/02/18 04/02/18 04/03/18 Range/Units 16:32 21:32 05:44 POC Glucose (mg/dL) 146 H 184 H 144 H (75-99) mg/dL 04/03/18 Range/Units 11:39 POC Glucose (mg/dL) 174 H (75-99) mg/dL
--- NOTE | 2018-04-03 13:05 | P.DS ---
Providers Date of admission: 03/31/18 22:56 Attending physician: Mita Wolf Consults: 03/31/18 22:57 Consult Physician Routine Consulting Provider: Bao Mckee Consult Reason/Comments: Lightheadedness, palpitation, concern for arrhythmia Do you want consulting provider notified?: Yes Primary care physician: Pranav Doe MD Hospital Course: Patient is admitted for supraventricular tachycardia heart rate remains in low 100s, dose of metoprolol is being increased. Electrolytes are being corrected. Need to monitor 1 more night because of uncontrolled heart rate at rest. 04/03/2018 Patient heart rate is is between high 90s and low 100s, digoxin was added and cleared for discharge from cardiology patient will be discharged today follow- up with Dr. Palmer as an outpatient PHYSICAL EXAMINATION: GENERAL: The patient is alert and oriented x3, not in any acute distress. Well developed, well nourished. HEENT: Pupils are round and equally reacting to light. EOMI. No scleral icterus. No conjunctival pallor. Normocephalic, atraumatic. No pharyngeal erythema. No thyromegaly. CARDIOVASCULAR: S1 and S2 present. No murmurs, rubs, or gallops. Tachycardic regular rhythm PULMONARY: Chest is clear to auscultation, no wheezing or crackles. ABDOMEN: Soft, nontender, nondistended, normoactive bowel sounds. No palpable organomegaly. MUSCULOSKELETAL: No joint swelling or deformity. EXTREMITIES: No cyanosis, clubbing, or pedal edema. NEUROLOGICAL: Gross neurological examination did not reveal any focal deficits. SKIN: No rashes. Assessment and Plan Plan: -Lightheadedness probably secondary to supra-ventricular tachycardia patient is being discharged on beta stiven and digoxin, follow with electrophysiology as an outpatient -Elevated troponin secondary to episodes of tachycardia cardiology evaluated the patient -Hypomagnesemia, improved with supplementation -Recent CABG continue with the antiplatelet therapy beta stiven and statins. -Hypertension -Hyperlipidemia -Type 2 diabetes mellitus: Patient Condition at Discharge: Stable Plan - Discharge Summary Discharge Rx Participant: No New Discharge Prescriptions: New Apixaban [Eliquis] 5 mg PO BID #60 tab Digoxin [Lanoxin] 125 mcg PO DAILY #30 tab Metoprolol Tartrate [Lopressor] 75 mg PO BID #60 tab Continue metFORMIN HCL [Glucophage] 1,000 mg PO BID Atorvastatin [Lipitor] 80 mg PO HS Cholecalciferol [Vitamin D3] 4,000 unit PO DAILY Pantoprazole [Protonix] 40 mg PO AC-BRKFST #30 tablet. Venlafaxine HCl [Effexor XR] 150 mg PO DAILY Insulin Detemir [Levemir Flextouch] 20 units SQ HS Losartan Potassium [Cozaar] 25 mg PO HS Clopidogrel [Plavix] 75 mg PO DAILY Discontinued Aspirin [Adult Low Dose Aspirin EC] 81 mg PO DAILY Metoprolol Tartrate [Lopressor] 25 mg PO TID Discharge Medication List Atorvastatin [Lipitor] 80 mg PO HS 02/03/18 [History] Cholecalciferol [Vitamin D3] 4,000 unit PO DAILY 02/03/18 [History] metFORMIN HCL [Glucophage] 1,000 mg PO BID 02/03/18 [History] Pantoprazole [Protonix] 40 mg PO AC-BRKFST #30 tablet. 02/10/18 [Rx] Clopidogrel [Plavix] 75 mg PO DAILY 03/31/18 [History] Insulin Detemir [Levemir Flextouch] 20 units SQ HS 03/31/18 [History] Losartan Potassium [Cozaar] 25 mg PO HS 03/31/18 [History] Venlafaxine HCl [Effexor XR] 150 mg PO DAILY 03/31/18 [History] Apixaban [Eliquis] 5 mg PO BID #60 tab 04/03/18 [Rx] Digoxin [Lanoxin] 125 mcg PO DAILY #30 tab 04/03/18 [Rx] Metoprolol Tartrate [Lopressor] 75 mg PO BID #60 tab 04/03/18 [Rx] Follow up Appointment(s)/Referral(s): Jay Leigh MD [STAFF PHYSICIAN] - 04/21/18 8:15 am Pranav Doe MD [Primary Care Provider] - 04/09/18 3:15 pm Patient Instructions/Handouts: Hypomagnesemia (DC) Activity/Diet/Wound Care/Special Instructions: pts Eliquis copay is $40/mo Discharge Disposition: HOME SELF-CARE
== END 2018-04-03 13:04 | disposition home or self-care (01) | DRG 310 ==
LOC: EC 18:35 → 6SEL 22:56
PROVIDERS: ADMIT Hospitalist; ATTEND Hospitalist
DX: I47.1 Supraventricular tachycardia (principal); E11.9 Type 2 diabetes mellitus without complications; E78.5 Hyperlipidemia, unspecified; E83.42 Hypomagnesemia; F32.9 Major depressive disorder, single episode, unspecified; I10 Essential (primary) hypertension; I44.0 Atrioventricular block, first degree; Z79.01 Long term (current) use of anticoagulants; Z79.02 Long term (current) use of antithrombotics/antiplatelets; Z79.4 Long term (current) use of insulin; Z79.82 Long term (current) use of aspirin; Z80.1 Family history of malignant neoplasm of trachea, bronchus and lung; Z85.3 Personal history of malignant neoplasm of breast; Z87.891 Personal history of nicotine dependence; Z95.1 Presence of aortocoronary bypass graft
CPT/HCPCS: 36415; 71046; 80053; 81001; 82550; 82553; 83036; 83735; 84132; 84443; 84484; 85025; 85610; 85730; 93005; 93306; 96365; 96366; 99285

== ENCOUNTER → 2018-05-16 | Outpatient (CLI) | payer MEDICARE, BC ==
[2018-05-16 16:46] LABS: HCT 32.7 % (34.0-46.0); HGB 11.1 gm/dL (11.4-16.0); MCH 30.7 pg (25.0-35.0); MCV 90.5 fL (80.0-100.0); Mean Platelet Volume 6.8; Platelet Count 179 k/uL (150-450); RBC 3.61 m/uL (3.80-5.40)
[2018-05-16 16:55] LABS: Potassium 4.4 mmol/L (3.5-5.1)
== END ==
LOC: LABPAT 16:24
PROVIDERS: ATTEND Internal Medicine Clinical Cardiac Electrophysiology
DX: Z01.812 Encounter for preprocedural laboratory examination (principal); E78.00 Pure hypercholesterolemia, unspecified; I25.110 Atherosclerotic heart disease of native coronary artery with unstable angina pectoris
CPT/HCPCS: 80051; 82565; 82947; 85027

== ENCOUNTER 2018-05-22 11:00 | Day surgery (SDC) | payer MEDICARE, BC ==
[2018-05-19 09:15] VITALS: BMI 25.7
[~2018-05-22 11:00] MED LIST changes: -ALPRAZolam 0.25 MG TAB PO PRN; -ALPRAZolam 0.5 MG TAB PO PRN; -ASPIRIN 325 MG TAB PO STA; -ATORVASTATIN 80 MG TAB PO STA; +DEXAMETHASONE SOD PHOSPHATE 10 MG/ML 1 ML VIAL IV ONE; +LIDOCAINE 1% 20 ML VIAL (10MG/ML) FOR IV START INTRADERMA PRN; +MIDAZOLAM 2 MG/2 ML VIAL IV PRN; -NITROGLYCERIN SL TABS 0.4 MG TAB SUBLINGUAL PRN; +ONDANSETRON 4 MG/2 ML VIAL IVP ONE; -SODIUM CHLORIDE 0.9% 1,000 ML in EMPTY BAG 1 BAG IV ONE
[2018-05-22] MEDS ORDERED: INSULIN ASPART 100 UNIT/ML 1 ML 10 ML VIAL SQ ONE (11:47)
[2018-05-22] MEDS: SODIUM CHLORIDE 0.9% 1,000 ML IV SCH (11:50)
[2018-05-22 11:54] LABS: Glucose,Whole Blood 251 mg/dL (75-99)
[2018-05-22] MEDS ORDERED: MIDAZOLAM 2 MG/2 ML VIAL ONE (13:35)
[2018-05-22] MEDS ORDERED: fentaNYL (PF) 50 MCG/ML 2 ML AMP ONE (13:35)
[2018-05-22] MEDS ORDERED: ROCURONIUM BROMIDE 10 MG/ML 10 ML VIAL IV ONE (13:35)
[2018-05-22] MEDS ORDERED: GLYCOPYRROLATE 0.2 MG/ML 2 ML VIAL ONE (13:35)
[2018-05-22] MEDS ORDERED: ISOPROTERENOL 250 MCG/1.25 ML SYR IV ONE (13:35)
[2018-05-22] MEDS ORDERED: SUCCINYLCHOLINE CHLORIDE 100 MG/5 ML SYR IV ONE (13:35)
[2018-05-22] MEDS ORDERED: NEOSTIGMINE 1 MG/ML 10 ML VIAL ONE (13:35)
[2018-05-22] MEDS ORDERED: PHENYLEPHRINE-0.9% NACL SYG 1 MG/10 ML SYRINGE ONE (13:35)
[2018-05-22] MEDS ORDERED: PROPOFOL 10 MG/ML 20 ML VIAL IV ONE (13:35)
[2018-05-22] MEDS ORDERED: LIDOCAINE 1% INJ 10MG/ML (20 ML MDV) ONE (13:58)
[2018-05-22] MEDS ORDERED: LIDOCAINE 1% INJ 10MG/ML (20 ML MDV) SQ ONE (14:12)
[2018-05-22] MEDS ORDERED: HEPARIN SODIUM (1,000 UNIT/ML) 1,000 UNIT in SODIUM CHLORIDE 0.9% 1,000 ML IRRIGATION ONE (14:43)
[2018-05-22] MEDS ORDERED: ACETAMINOPHEN IV (For NPO) 1,000 MG in EMPTY BAG 1 BAG IVPB ONE (16:18)
[2018-05-22] MEDS ORDERED: ACETAMINOPHEN TAB 325 MG TAB PO PRN (16:18)
[2018-05-22] MEDS ORDERED: HYDROcodone/APAP 5-325MG 1 EACH TAB PO PRN (16:18)
[2018-05-22 16:43] LABS: Glucose,Whole Blood 85 mg/dL (75-99)
[2018-05-22] MEDS: LACTATED RINGERS 1,000 ML IV SCH (17:24)
[2018-05-22] MEDS: metFORMIN 500 MG TAB PO SCH ×2 (17:32→17:35)
[2018-05-22] MEDS ORDERED: INSULIN DETEMIR 100 UNIT/ML 10 ML VIAL SQ SCH (21:00)
[2018-05-22] MEDS ORDERED: LOSARTAN 25 MG TAB PO SCH (21:00)
[2018-05-22] MEDS ORDERED: METOPROLOL TARTRATE 25 MG TAB PO SCH (21:00)
[2018-05-22] MEDS ORDERED: ATORVASTATIN 80 MG TAB PO SCH (21:00)
[2018-05-22] MEDS: APIXABAN 5 MG TAB PO SCH (21:33)
[2018-05-22 21:34] LABS: Glucose,Whole Blood 183 mg/dL (75-99)
[2018-05-23] MEDS: SODIUM CHLORIDE 0.9% 1,000 ML IV SCH (06:16)
[2018-05-23] MEDS: LACTATED RINGERS 1,000 ML IV SCH (06:16)
[2018-05-23 06:45] LABS: Glucose,Whole Blood 169 mg/dL (75-99)
--- NOTE | 2018-05-23 08:23 | P.DS ---
Providers Attending physician: Bao Mckee Primary care physician: Pranav Doe MD Hospital Course: Patient underwent successful atrial flutter ablation yesterday with complete abduction block. However early this morning she went into atrial fibrillation. Twelve-lead ECG shows an organized atrial activity but intracardiac electrograms confirm organized atrial fibrillation Blood pressure 103/64 mmHg pulse rate of 110 beats a minute at rest afebrile 98.1F normal respirations resting comfortably in bed Heart sounds are normal no murmurs developed rub irregular sounds Breath sounds are clear no rhonchi no crackles Abdomen soft nontender Extremities warm no edema Patient denies any chest discomfort. She does feel palpitations and fluttering. She did ambulate in the hallways and is not dizzy Impression Atrial fibrillation with RVR starting metoprolol succinate 100 mg by mouth daily today Hold digoxin Stop amlodipine Start amiodarone 400 mg daily temporarily Continue anticoagulation with ELIQUIS continue all other cardiac medications Follow Dr. Leigh in 1 week Patient may be discharged home today if her heart rate is below 120 bpm at rest Be scheduled for an A. fib ablation with cryoablation and and efficacy ablation hybrid procedure in the next 6 weeks Patient Condition at Discharge: Stable Plan - Discharge Summary Discharge Rx Participant: No New Discharge Prescriptions: New Amiodarone [Cordarone] 400 mg PO DAILY #90 tablet Metoprolol Succinate [Kapspargo Sprinkle] 100 mg PO DAILY #90 cap.spr.24 Discontinued Metoprolol Tartrate 25 mg PO TID Digoxin [Lanoxin] 125 mcg PO QAM amLODIPine BESYLATE 5 mg PO QAM Losartan Potassium [Cozaar] 25 mg PO HS No Action Atorvastatin [Lipitor] 80 mg PO HS Cholecalciferol [Vitamin D3] 4,000 unit PO HS Venlafaxine HCl [Effexor XR] 150 mg PO QAM Losartan Potassium [Cozaar] 25 mg PO HS Clopidogrel [Plavix] 150 mg PO DAILY Apixaban [Eliquis] 5 mg PO BID #60 tab metFORMIN HCL [Glucophage] 500 mg PO BID Furosemide [Lasix] 40 mg PO QAM Magnesium 400 mg PO HS Insulin Detemir [Levemir] 20 unit SQ HS Discharge Medication List Atorvastatin [Lipitor] 80 mg PO HS 02/03/18 [History] Cholecalciferol [Vitamin D3] 4,000 unit PO HS 02/03/18 [History] Clopidogrel [Plavix] 150 mg PO DAILY 09/24/18 [History] Losartan Potassium [Cozaar] 25 mg PO HS 03/31/18 [History] Venlafaxine HCl [Effexor XR] 150 mg PO QAM 03/31/18 [History] Apixaban [Eliquis] 5 mg PO BID #60 tab 04/03/18 [Rx] Furosemide [Lasix] 40 mg PO QAM 05/19/18 [History] Magnesium 400 mg PO HS 05/19/18 [History] metFORMIN HCL [Glucophage] 500 mg PO BID 05/19/18 [History] Insulin Detemir [Levemir] 20 unit SQ HS 05/22/18 [History] Amiodarone [Cordarone] 400 mg PO DAILY #90 tablet 05/23/18 [Rx] Metoprolol Succinate [Kapspargo Sprinkle] 100 mg PO DAILY #90 cap.spr.24 [Rx] Follow up Appointment(s)/Referral(s): Jay Leigh MD [STAFF PHYSICIAN] - 1 Week Activity/Diet/Wound Care/Special Instructions: Post EP study - Ablation instructions 1. Keep access sites dry for 2 days. 2. No heavy lifting or straining for 2 days. 3. Avoid bending the hips repeatedly for 2 days. 4. You may go up and down stairs slowly Call if the following is noted 1. Bleeding, increasing swelling or pain at the access sites. 2. Increasing chest discomfort, especially upon taking a deep breath. 3. Increasing shortness of breath, at rest or with exertion. 4. Undue cough / phlegm 5. Difficulty or pain while swallowing. 6. Pain or change in color in the extremities. 7. Fever, chills, rigors. 8. Increasing headache or neurologic symptoms. 9. Dizziness, fainting, palpitations Stop metoprolol tartrate Start metoprolol succinate 100 mg every morning Amiodarone 400 mg by mouth daily Continue and granulation Stop digoxin Stop amlodipine Stop metoprolol tartrate Dr. Leigh in 1 week Discharge home after ambulating in the hallways and groins are stable Discharge Disposition: HOME SELF-CARE
[2018-05-23] MEDS: metFORMIN 500 MG TAB PO SCH (08:31)
[2018-05-23] MEDS: APIXABAN 5 MG TAB PO SCH (08:31)
--- NOTE | 2018-05-23 08:58 | PCN ---
PROCEDURE NOTE 72-year-old female with a history of atrial fibrillation and a 12-lead ECG with organized atrial activity, but with a cycle length of about 200 milliseconds, possible atrial tachycardia. She is brought in for an EP study and radiofrequency ablation. Patient brought to the EP lab in a fasting state. Written informed consent was obtained prior to the procedure. Venous sheaths were placed in the right and left femoral veins and via this 1st coronary sinus catheter was placed in the CS. This showed organized atrial fibrillation, not atrial tachycardia even though the 12-lead ECG suggested an atrial tachycardia. A mapping ablation catheter was placed. Intracardiac echo catheter was placed and thereafter the patient was intubated. The rest of the procedure was performed under general anesthesia. Electrical cardioversion was first performed and the patient converted to sinus rhythm. A 360 joule biphasic shock was used to convert the patient to sinus rhythm. Subsequently, 3D mapping of the right atrium was performed especially in the right atrial isthmus. Sinus cycle length 908 milliseconds, ID interval 157 milliseconds, QRS 76 milliseconds, QT 365 milliseconds. AH interval 73 milliseconds, HV interval 43 milliseconds. Sinus node recovery times at 600, milliseconds were 1353 milliseconds, corresponding corrected sinus node recovery times within normal limits. VA Wenckebach block 350 milliseconds. AV node Wenckebach block 360 milliseconds. No slow pathway. No delta waves. Atrial extra stimulation was performed from the coronary sinus and atrial ERP was 600/280 milliseconds. 3D mapping of the right atrial isthmus was performed. RF ablation was performed. Complete anatomic line was made. Bidirectional block was proven with differential pacing. Split potentials of 135 milliseconds were noted all along the line. Non capture was noted at high output all along the line. All catheters were then removed. The patient was transferred back to telemetry. RESULT: 1. Diagnostic EP study revealing organize atrial fibrillation rather than atrial tachycardia even though the 12-lead ECG suggested organized atrial deflexions and atrial tachycardia. 2. Successful atrial flutter ablation. 3. Electrical cardioversion for atrial fibrillation. SUGGEST: 1. Stop metoprolol tartrate. 2. Start metoprolol succinate 50 mg p.o. daily. 3. Start Eliquis 5 mg twice daily. 4. Continue all other medications. 5. Follow up with Dr. Annie Leigh. 6. In the future, if she develops atrial fibrillation, then pulmonary vein isolation and atrial fibrillation ablation should be considered. MMODL / IJN: [id number] /
[2018-05-23] MEDS ORDERED: VENLAFAXINE HCL ER 150 MG CAP PO SCH (09:00)
[2018-05-23] MEDS ORDERED: METOPROLOL SUCCINATE (ER) 100 MG TAB.ER.24H PO SCH (09:00)
[2018-05-23] MEDS ORDERED: AMIODARONE 200 MG TAB PO SCH (09:00)
[2018-05-23] MEDS ORDERED: amLODIPine 5 MG TAB PO SCH (09:00)
[2018-05-23] MEDS ORDERED: FUROSEMIDE 40 MG TAB PO SCH (09:00)
[2018-05-23] MEDS ORDERED: CLOPIDOGREL 75 MG TAB PO SCH (09:00)
[2018-05-23 09:09] VITALS: RESP 16
[2018-05-23 11:41] LABS: Glucose,Whole Blood 234 mg/dL (75-99)
[2018-05-23 12:26] VITALS: BP 123/74; PULSE 128; TEMP 99
== END 2018-05-23 13:55 | disposition home or self-care (01) ==
LOC: CATHEP 11:00 → 1SOBS 15:40 → CATHEP 05-23 13:55
PROVIDERS: ATTEND Internal Medicine Clinical Cardiac Electrophysiology
DX: I48.91 Unspecified atrial fibrillation (principal); I48.92 Unspecified atrial flutter; I25.110 Atherosclerotic heart disease of native coronary artery with unstable angina pectoris; I11.0 Hypertensive heart disease with heart failure; I50.32 Chronic diastolic (congestive) heart failure; E78.00 Pure hypercholesterolemia, unspecified; E11.9 Type 2 diabetes mellitus without complications; I27.20 Pulmonary hypertension, unspecified; F32.9 Major depressive disorder, single episode, unspecified; Z95.1 Presence of aortocoronary bypass graft; Z79.01 Long term (current) use of anticoagulants; Z79.4 Long term (current) use of insulin; Z79.899 Other long term (current) drug therapy; Z88.1 Allergy status to other antibiotic agents; Z88.2 Allergy status to sulfonamides; Z87.891 Personal history of nicotine dependence
CPT/HCPCS: 93662; 93613; 93653; C1894; C1769 ×2; C1893; C1730 ×2; C1759; C1732; J2250; J2710; J2001; J3010; J1644; J0131; J2370; J0330; J2704; 92960

== ENCOUNTER → 2018-07-21 | Outpatient (CLI) | payer MEDICARE, BC ==
[2018-07-21 15:45] LABS: HCT 31.4 % (34.0-46.0); HGB 10.4 gm/dL (11.4-16.0); MCH 30.6 pg (25.0-35.0); MCHC 33.1 g/dL (31.0-37.0); MCV 92.4 fL (80.0-100.0); Platelet Count 192 k/uL (150-450); RDW 15.1 % (11.5-15.5); WBC 6.4 k/uL (3.8-10.6)
[2018-07-21 15:59] LABS: Potassium 5.1 mmol/L (3.5-5.1)
== END | disposition home or self-care (01) ==
LOC: LABPAT 15:04
PROVIDERS: ATTEND Internal Medicine Clinical Cardiac Electrophysiology
DX: Z01.812 Encounter for preprocedural laboratory examination (principal); I48.4 Atypical atrial flutter
CPT/HCPCS: 36415; 80051; 82565; 82947; 84520; 85027

== ENCOUNTER 2018-08-18 11:16 | Day surgery (SDC) | payer MEDICARE, BC ==
[2018-08-18] MEDS: SODIUM CHLORIDE 0.9% 1,000 ML IV SCH (12:04)
[2018-08-18 12:06] LABS: Glucose,Whole Blood 119 mg/dL (75-99)
[2018-08-18] MEDS ORDERED: LIDOCAINE 1% INJ 10MG/ML (20 ML MDV) ONE ×2 (14:18→14:38)
[2018-08-18] MEDS ORDERED: ROCURONIUM BROMIDE 10 MG/ML 10 ML VIAL IV ONE (14:38)
[2018-08-18] MEDS ORDERED: HEPARIN SODIUM,PORCINE 10,000 UNIT/ML 1 ML VIAL ONE (14:38)
[2018-08-18] MEDS ORDERED: PHENYLEPHRINE-0.9% NACL SYG 1 MG/10 ML SYRINGE ONE (14:38)
[2018-08-18] MEDS ORDERED: PROTAMINE SULFATE 10 MG/ML 5 ML VIAL IV ONE (14:38)
[2018-08-18] MEDS ORDERED: ePHEDrine SULFATE/0.9% NACL/PF 50 MG/5 ML SYRINGE IV ONE (14:38)
[2018-08-18] MEDS ORDERED: SUCCINYLCHOLINE CHLORIDE 100 MG/5 ML SYR IV ONE (14:38)
[2018-08-18] MEDS ORDERED: MIDAZOLAM 2 MG/2 ML VIAL ONE (14:38)
[2018-08-18] MEDS ORDERED: ISOPROTERENOL 250 MCG/1.25 ML SYR IV ONE (14:38)
[2018-08-18] MEDS ORDERED: PROPOFOL 10 MG/ML 20 ML VIAL IV ONE (14:38)
[2018-08-18] MEDS ORDERED: fentaNYL (PF) 50 MCG/ML 2 ML AMP ONE (14:38)
[2018-08-18] MEDS ORDERED: LIDOCAINE 1% INJ 10MG/ML (20 ML MDV) SQ ONE (15:30)
[2018-08-18] MEDS ORDERED: HEPARIN SOD,PORK IN 0.45% NACL 25,000 UNIT in 0.45% NACL 1 250ML.BAG IV ONE ×2 (16:04)
[2018-08-18] MEDS ORDERED: HEPARIN SODIUM 1,000 UN/ML (10ML VL) IV ONE ×3 (16:04→20:18)
[2018-08-18 17:18] LABS: Glucose,Whole Blood 98 mg/dL (75-99)
[2018-08-18] MEDS ORDERED: HEPARIN SODIUM (1,000 UNIT/ML) 1,000 UNIT in SODIUM CHLORIDE 0.9% 1,000 ML IRRIGATION ONE (18:12)
[2018-08-18] MEDS ORDERED: IOPAMIDOL-370 100ML BTL INJ ONE (18:12)
[2018-08-18] MEDS ORDERED: LACTATED RINGERS 1,000 ML IV ONE (18:29)
[2018-08-18 18:53] LABS: Glucose,Whole Blood 111 mg/dL (75-99)
[2018-08-18 20:09] LABS: Glucose,Whole Blood 111 mg/dL (75-99)
--- NOTE | 2018-08-18 21:15 | P.PCN ---
Preoperative Diagnosis: Diagnosis Atrial fibrillation, symptomatic, refractory to therapy Second atrial tachycardia very symptomatic low blood pressure Result Successful pulmonary vein isolation of all veins using cryo-ablation Complete entrance block in all 4 veins confirmed No evidence for phrenic nerve injury Esophageal deflection NO Electrical cardioversion with a synchronized shock across the chest NO Procedure details Patient was brought to the EP lab in a fasting state. Written informed consent was obtained prior to the procedure. Procedure performed under general anesthesia After initial muscle relaxant use, muscle relaxants were not given thereafter in order to assess phrenic nerve during procedure. Patient prepped and draped as per protocol Full cryo-set up with standard preparation of the cryoablation tools done. Femoral Venous access obtained on the right and left groins Venous and arterial Sheaths placed. Diagnostic catheters for the high right atrium, phrenic nerve stimulation and pacing, His bundle, RV and coronary sinus placed Intracardiac echo catheter placed. Long sheath placed in the right atrium Left and right transseptal catheterization performed under intracardiac echo guidance. Intravenous heparin with aCT above 300 Later, catheter positioning and balloon positioning in the left atrium, under intracardiac echo guidance Comprehensive diagnostic EP study with Drug infusion Coronary sinus pacing and recording Baseline measurements sinus cycle length 1064 ms, [place] 149, QT 498 and QRS 82 ms Atrial pacing performed from the high right atrium and the coronary sinus RV pacing Transseptal catheterization performed RA pressure 14/6/10 LA pressure 42/0/20 Sinus node recovery times at 600 540 ms were 1226, 1970 974 ms On Isuprel straight pacing from the high right atrium from from the coronary sinus results of induction of multiple tachycardias which was sequentially ablated after pulmonary vein isolation Transseptal catheterization performed with standard sheath. The cryoablation sheath was then placed with an over the wire exchange without any acute complications. All 4 pulmonary veins were isolated in the following sequence: Left superior followed by left inferior followed by right superior followed by right inferior The cryo-ablation balloon was placed at the os of each vein 1.5 mL of IV dye was injected to confirm an occluded vein Goal during cryoablation was to achieve complete occlusion of the pulmonary vein , achieve -30C at 30 seconds and achieve -40C at 60 seconds and a time to affect of less than 60-90 seconds, . If not the balloon was repositioned to obtain this result After completion of Cryoblation with durations from 180-240 seconds, entrance block was confirmed with the Attain circular catheter in a roving fashion around the antrum of the pulmonary veins Phrenic nerve pacing was performed from the SVC, right innominate vein area and diaphragm voltage was monitored. Diaphragmatic contractions were also monitored manually for strength of contraction. Parameter goals for each cryo freeze -30 C by 30 seconds -40 degrees C by 60 seconds Minimum between minus 40-55C Thaw time greater than 10 seconds Balloon visualized by intracardiac echo The esophagus was intubated. Esophageal Temperature monitoring with a CIRCA catheter formed. Esophageal deflection for hypothermia of the esophagus below 32C Left superior pulmonary vein Common os, 3 minutes, complete isolation Left inferior pulmonary vein Common os, 4 minutes, complete isolation Right superior pulmonary vein, during phrenic nerve pacing 4 minutes, complete isolation Right inferior pulmonary vein, during phrenic nerve pacing 4 minutes complete isolation At the end of the procedure the Achieve catheter was once again used to check for entrance block Phrenic nerve stimulation was performed to confirm diaphragmatic stimulation the end of the procedure Cine fluoroscopy was performed at the very end of the procedure to confirm movement of both diaphragms with inspiration and expiration At the end of the procedure the patient was extubated Heparin was reversed Venous sheaths were removed and hemostasis assured Procedures performed ([facility]I - CRYO Ablation) Comprehensive diagnostic EP study with attempted arrhythmia induction CS pacing and recording Left and right transseptal catheterization Catheter the mapping of the tachycardia followed by 3-D mapping for RF ablation , please see separate dictation Intracardiac echocardiography Pulmonary vein isolation with transseptal and comprehensive EPS, [id number] + [id number]: Focal atrial tachycardia ablation. A focal atrial tachycardia was induced. Left and right atria underwent 3-D electro-anatomic mapping. Successful ablation anteroseptal wall just beyond the fossa ovalis Left atrial anterior line/very anterior roofline Mitral isthmus line Electrical cardioversion with a synchronized shock across the chest [id number] Drug Infusion +[id number] 3-D electro-anatomic mapping details after PVI After successful isolation of all 4 pulmonary veins on Isuprel multiple atrial tachycardias induced Focal micro-reentrant circuit mapped to the left atrial anterior wall just beyond the fossa ovalis and this underwent successful radio frequency ablation. This area was connected to the right superior pulmonary vein anterior wall Linear ablation in the mitral isthmus Linear ablation along the anterior body of the left atrium A complete roofline was ordered because esophagus could not be deflected a safe distance away This is a long procedure since multiple tachycardias were induced multiple electro-anatomic maps of the right atrium and left atrium were made after successful PVI 1 residual atrial tachycardia Successful electrical cardioversion to sinus rhythm Issues during mapping the coronary sinus was quite unusual and the coronary sinus catheter could not be placed in a stable position within the coronary sinus far distally. When placed proximal to mid portion of the Coronary sinus, it would easily displace. Therefore the reference catheter was placed in the right atrial appendage For Mapping this residual tachycardia, in the future I will place a coronary sinus catheter from above from the left axillary vein and access the coronary sinus using a biventricular sheath and placed the Coronary sinus catheter as far distally as possible in the coronary sinus The final residual atrial tachycardia was mapped in the left atrium and this is definitely an atrial tachycardia entrainment mapping showed that this was not a mitral isthmus tachycardia Entrainment mapping suggested a close PPI in the roof but with the anterior left atrial wall RF line there was no change in tachycardia cycle length Right atrium was also mapped and this is definitely not the right atrial tachycardia
[2018-08-18 21:47] LABS: Glucose,Whole Blood 124 mg/dL (75-99)
[2018-08-18] MEDS ORDERED: ACETAMINOPHEN IV (For NPO) 1,000 MG in EMPTY BAG 1 BAG IVPB PRN (22:08)
[2018-08-18] MEDS ORDERED: HYDROcodone/APAP 5-325MG 1 EACH TAB PO PRN (22:08)
[2018-08-18 22:28] VITALS: BMI 25.4
[2018-08-18] MEDS: LACTATED RINGERS 1,000 ML IV SCH (22:36)
[2018-08-18] MEDS: APIXABAN 5 MG TAB PO SCH (22:40)
[2018-08-19] MEDS: LACTATED RINGERS 1,000 ML IV SCH (05:47)
[2018-08-19] MEDS: SODIUM CHLORIDE 0.9% 1,000 ML IV SCH (05:47)
[2018-08-19 07:25] LABS: Calcium 8.2 mg/dL (8.4-10.2); Potassium 4.7 mmol/L (3.5-5.1)
[2018-08-19 07:48] VITALS: RESP 18
[2018-08-19] MEDS: APIXABAN 5 MG TAB PO SCH (08:40)
[2018-08-19 08:56] LABS: Glucose,Whole Blood 258 mg/dL (75-99)
[2018-08-19] MEDS ORDERED: METOPROLOL SUCCINATE (ER) 50 MG TAB.ER.24H PO SCH (09:00)
[2018-08-19] MEDS ORDERED: FLUoxetine HCL 20 MG CAP PO SCH (09:00)
--- NOTE | 2018-08-19 09:51 | P.DS ---
Providers Attending physician: Bao Mckee Primary care physician: Pranav Doe MD Hospital Course: Patient is doing well. No dizziness lightheadedness chest discomfort No palpitations On telemetry short runs of atrial tachycardia with aberrancy noted Blood pressure 123/60 mmHg pulse rate in the 70s Breath sounds are clear with slightly prolonged expiration No rhonchi no crackles Heart sounds are normal with a soft systolic murmur no rub Abdomen soft nontender Extremities warm no edema Impression Atrial fibrillation, paroxysmal Atrial tachycardia, paroxysmal Status post A. fib ablation and atrial tachycardia ablation Suggest Continue anticoagulation with ELIQUIS connected to cardiac medications follow Dr. Leigh. Patient may go home today about 5 PM if she is here and apparently stable Labs are reviewed electrolytes and normal renal function is normal Plan - Discharge Summary Discharge Rx Participant: No New Discharge Prescriptions: No Action RX: Atorvastatin [Lipitor] 80 mg PO HS RX: Cholecalciferol [Vitamin D3] 4,000 unit PO HS RX: Losartan Potassium [Cozaar] 25 mg PO HS RX: Apixaban [Eliquis] 5 mg PO BID #60 tab metFORMIN HCL [Glucophage] 1,000 mg PO BID Insulin Detemir [Levemir] 20 unit SQ HS RX: Metoprolol Succinate [Kapspargo Sprinkle] 50 mg PO DAILY FLUoxetine HCL [PROzac] 40 mg PO DAILY Discharge Medication List RX: Atorvastatin [Lipitor] 80 mg PO HS 02/03/18 [History] RX: Cholecalciferol [Vitamin D3] 4,000 unit PO HS 02/03/18 [History] RX: Losartan Potassium [Cozaar] 25 mg PO HS 03/31/18 [History] RX: Apixaban [Eliquis] 5 mg PO BID #60 tab 04/03/18 [Rx] metFORMIN HCL [Glucophage] 1,000 mg PO BID 05/19/18 [History] Insulin Detemir [Levemir] 20 unit SQ HS 05/22/18 [History] FLUoxetine HCL [PROzac] 40 mg PO DAILY 07/23/18 [History] RX: Metoprolol Succinate [Kapspargo Sprinkle] 50 mg PO DAILY 07/23/18 [History]
--- NOTE | 2018-08-19 10:09 | P.PCN ---
Preoperative Diagnosis: Future plan for Pricila Acuña She is undergone atrial flutter ablation last year with complete but pressure block She underwent pulmonary vein isolation with cryoablation yesterday She underwent successful ablation of for a micro-reentrant tachycardia anterior wall LA, just anterior to the fossa ovalis Mitral isthmus line anterior LA line from right superior to base of the left atrial appendage where ablation was performed She has residual atrial tachycardia which is most likely a roofline with entrainment mapping suggesting a close PPI Issues with mapping Coronary sinus anatomy is unusual and would require a coronary sinus placed from the left axillary vein with a biventricular sheath within the Julio C sinus also for stability Coronary sinus catheter from below from the femoral veins would not stay stable and would repeatedly dislodged Therefore the catheter was placed in the right atrial appendage bracketing this is too far away for mapping the left atrium circuit In addition esophagus was too close for and ablation of the roof of the left atrium Plan In the future if she has an atrial tachycardia ablation then barium esophagram will be performed with esophageal deflection carefully ablate either the roof of the posterior wall if needed A coronary sinus catheter will be placed from the left axillary vein along with a biventricular pacemaker lead sheath to provide stability for this catheter to be used as a reference mapping catheter
[2018-08-19 15:56] LABS: Glucose,Whole Blood 257 mg/dL (75-99)
[2018-08-19 16:02] VITALS: BP 116/65; PULSE 70; TEMP 97.6
[2018-08-19] MEDS ORDERED: INSULIN DETEMIR (LEVEMIR) 100 UNIT/ML SYR SQ SCH (21:00)
[2018-08-19] MEDS ORDERED: ATORVASTATIN 80 MG TAB PO SCH (21:00)
[2018-08-19] MEDS ORDERED: LOSARTAN 25 MG TAB PO SCH (21:00)
[2018-08-21] MEDS ORDERED: metFORMIN 500 MG TAB PO SCH (09:00)
== END 2018-08-19 17:15 | disposition home or self-care (01) ==
LOC: CATHEP 11:16 → 1SOBS 21:16 → CATHEP 08-19 17:15
PROVIDERS: ATTEND Internal Medicine Clinical Cardiac Electrophysiology
DX: I48.0 Paroxysmal atrial fibrillation (principal); I47.1 Supraventricular tachycardia; I95.9 Hypotension, unspecified; I44.2 Atrioventricular block, complete; E78.00 Pure hypercholesterolemia, unspecified; I48.4 Atypical atrial flutter; E11.9 Type 2 diabetes mellitus without complications; I10 Essential (primary) hypertension; I25.110 Atherosclerotic heart disease of native coronary artery with unstable angina pectoris; E78.5 Hyperlipidemia, unspecified; I27.20 Pulmonary hypertension, unspecified; F32.9 Major depressive disorder, single episode, unspecified; C50.919 Malignant neoplasm of unspecified site of unspecified female breast; F17.210 Nicotine dependence, cigarettes, uncomplicated; Z95.1 Presence of aortocoronary bypass graft; Z79.01 Long term (current) use of anticoagulants; Z79.4 Long term (current) use of insulin; Z79.899 Other long term (current) drug therapy; Z88.2 Allergy status to sulfonamides; Z88.8 Allergy status to other drugs, medicaments and biological substances; Z88.1 Allergy status to other antibiotic agents
CPT/HCPCS: 85347; 93623; 93662; 93613; 93655; 93656; 80048; C1769 ×4; C1894 ×3; C1730 ×2; C1731; C1759; C1893; C1733; C1766; C1732; J2250; J2720; J1644 ×3; J2001; J3010; J2370; J0330; J2704; Q9967; 92960; 93609

== ENCOUNTER 2018-08-25 16:02 | Emergency (ER) | payer MEDICARE, BC ==
--- NOTE | 2018-08-25 17:58 | ED ---
General Adult HPI - General Chief complaint: Recheck/Abnormal Lab/Rx Stated complaint: groin pain, heart cath on saturday Time Seen by Provider: 08/25/18 17:42 Source: patient, RN notes reviewed, old records reviewed Mode of arrival: wheelchair Limitations: no limitations - History of Present Illness Initial comments: 73-year-old female presents for evaluation of right groin pain. Patient is 1 week postop cardiac ablation for bilateral femoral artery approach. She's had no symptoms over the past 6 days. Today she developed some severe pain in the right groin. No pain in the knee or distal right lower extremity. Pain is worse with movement, is improved with immobility. She is currently on anticoagulation taking Eliquis. Denies abdominal pain, denies back pain. Denies chest pain or dyspnea. 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 No trauma. - Related Data Home Medications Medication Instructions Recorded Confirmed Atorvastatin [Lipitor] 80 mg PO HS 02/03/18 08/25/18 Cholecalciferol [Vitamin D3] 4,000 unit PO HS 02/03/18 08/25/18 Losartan Potassium [Cozaar] 25 mg PO HS 03/31/18 08/25/18 metFORMIN HCL [Glucophage] 1,000 mg PO BID 05/19/18 08/25/18 Insulin Detemir (Levemir) [Levemir] 20 unit SQ HS 05/22/18 08/25/18 FLUoxetine HCL [PROzac] 40 mg PO DAILY 07/23/18 08/25/18 Metoprolol Succinate [Toprol XL] 25 mg PO DAILY 08/25/18 08/25/18 Previous Rx's Medication Instructions Recorded Apixaban [Eliquis] 5 mg PO BID #60 tab 04/03/18 HYDROcodone/APAP 5-325MG [[place] 1 tab PO Q6HR PRN #12 tab 08/25/18 5-325] Allergies Allergy/AdvReac Type Severity Reaction Status Date / Time sulfamethoxazole Allergy Rash/Hives Verified 08/25/18 18:17 [From Bactrim] trimethoprim [From Bactrim] Allergy Rash/Hives Verified 08/25/18 18:17 Review of Systems ROS Statement: Those systems with pertinent positive or pertinent negative responses have been documented in the HPI. ROS Other: All systems not noted in ROS Statement are negative. Past Medical History Past Medical History: Cancer, Diabetes Mellitus, Hyperlipidemia, Hypertension, Respiratory Disorder Additional Past Medical History / Comment(s): See Dr Mckee's H&P. Hx breast cancer in 2006 with lumpectomy and radiation. BILATERAL PLEURAL EFFUSIONS. History of Any Multi-Drug Resistant Organisms: None Reported Past Surgical History: Breast Surgery, Coronary Bypass/CABG, Hernia Repair, Orthopedic Surgery, Tubal Ligation Additional Past Surgical History / Comment(s): Surgery for broken arm, CABG X 2 , ZELAYA to the LAD, SVG to the OM. POSSIBLE BILATERAL THORACENTESIS. Ablation, EPS, cardioversion. Past Anesthesia/Blood Transfusion Reactions: No Reported Reaction Past Psychological History: Depression Smoking Status: Former smoker - Past Family History Sister(s) Family Medical History: Cancer, Pulmonary Embolus Additional Family Medical History / Comment(s): Lung cancer. General Exam Limitations: no limitations General appearance: alert, in no apparent distress Head exam: Present: atraumatic, normocephalic Eye exam: Present: normal appearance, PERRL ENT exam: Present: normal exam Neck exam: Present: normal inspection. Absent: tenderness, meningismus Respiratory exam: Present: normal lung sounds bilaterally. Absent: respiratory distress Cardiovascular Exam: Present: regular rate, irregular rhythm GI/Abdominal exam: Present: soft. Absent: distended, tenderness, guarding, rebound Extremities exam: Present: other (Mild ecchymosis bilateral groins. Right lower extremity, no swelling, no edema, no Refill, no pseudoaneurysm, normal 2+ and bypass, 2+ popliteal pulse, normal pulse at the dorsalis pedis, 2+ past PT. No cyanosis, no pallor) Course Vital Signs 08/25/18 08/25/18 08/25/18 16:59 19:31 21:58 Temperature 98.1 F 97.1 F L Pulse Rate 99 96 86 Respiratory 18 16 18 Rate Blood Pressure 109/70 118/65 124/71 O2 Sat by Pulse 98 98 99 Oximetry Medical Decision Making - Medical Decision Making 73-year-old female presenting with greater than 5 pain. Patient is 1 week postop cardiac ablation with femoral artery approach. Denies symptoms in the lower leg. Given the history is concerning for pseudoaneurysm, arterial or venous occlusion. Ultrasound veins are obtained, negative for DVT, arterial ultrasound including evaluation of pseudoaneurysm is obtained and this is negative. Patient has normal popliteal pulse, normal femoral pulse, normal posterior tibial pulse, no palpable pass on the nurse asked process the patient does have Doppler signal with normal cap refill. She is anticoagulated. Laboratory studies reveal hemoglobin 9.5 which is stable for this patient. Lactic acid is 3.9, this was ordered to evaluate for ischemia. Patient does endorse decreased by mouth intake and fluids throughout the day. May be secondary to hydration status rather than limb ischemia as this is repeated and is 1.3 after 1 L of normal saline. Patient is stable for outpatient follow-up. Ultrasound does show hematoma with no acute findings. Follow up with cardiology for reevaluation. Patient has appointment tomorrow. - Lab Data Result diagrams: 08/25/18 18:05 08/25/18 18:05 Lab Results 08/25/18 08/25/18 08/25/18 Range/Units 18:05 18:05 18:05 WBC 10.1 (3.8-10.6) k/uL RBC 3.05 L (3.80-5.40) m/uL Hgb 9.5 L (11.4-16.0) gm/dL Hct 28.1 L (34.0-46.0) % MCV 92.1 (80.0-100.0) fL MCH 31.2 (25.0-35.0) pg MCHC 33.9 (31.0-37.0) g/dL RDW 14.6 (11.5-15.5) % Plt Count 229 (150-450) k/uL Neutrophils % 90 % Lymphocytes % 5 % Monocytes % 4 % Eosinophils % 1 % Basophils % 0 % Neutrophils # 9.0 H (1.3-7.7) k/uL Lymphocytes # 0.5 L (1.0-4.8) k/uL Monocytes # 0.4 (0-1.0) k/uL Eosinophils # 0.1 (0-0.7) k/uL Basophils # 0.0 (0-0.2) k/uL Sodium 138 (137-145) mmol/L Potassium 5.6 H (3.5-5.1) mmol/L Chloride 101 (98-107) mmol/L Carbon Dioxide 25 (22-30) mmol/L Anion Gap 12 mmol/L BUN 24 H (7-17) mg/dL Creatinine 0.85 (0.52-1.04) mg/dL Est GFR (CKD-EPI)AfAm 79 (>60 ml/min/1.73 sqM) Est GFR (CKD-EPI)NonAf 68 (>60 ml/min/1.73 sqM) Glucose 147 H (74-99) mg/dL Lactic Ac Sepsis Rflx Plasma Lactic Acid [place] 3.9 H* (0.7-2.0) mmol/L Calcium 9.4 (8.4-10.2) mg/dL Total Bilirubin 0.8 (0.2-1.3) mg/dL AST 22 (14-36) U/L ALT 52 (9-52) U/L Alkaline Phosphatase 65 (38-126) U/L Total Protein 6.4 (6.3-8.2) g/dL Albumin 4.1 (3.5-5.0) g/dL 08/25/18 08/25/18 Range/Units 18:41 21:18 WBC (3.8-10.6) k/uL RBC (3.80-5.40) m/uL Hgb (11.4-16.0) gm/dL Hct (34.0-46.0) % MCV (80.0-100.0) fL MCH (25.0-35.0) pg MCHC (31.0-37.0) g/dL RDW (11.5-15.5) % Plt Count (150-450) k/uL Neutrophils % % Lymphocytes % % Monocytes % % Eosinophils % % Basophils % % Neutrophils # (1.3-7.7) k/uL Lymphocytes # (1.0-4.8) k/uL Monocytes # (0-1.0) k/uL Eosinophils # (0-0.7) k/uL Basophils # (0-0.2) k/uL Sodium (137-145) mmol/L Potassium (3.5-5.1) mmol/L Chloride (98-107) mmol/L Carbon Dioxide (22-30) mmol/L Anion Gap mmol/L BUN (7-17) mg/dL Creatinine (0.52-1.04) mg/dL Est GFR (CKD-EPI)AfAm (>60 ml/min/1.73 sqM) Est GFR (CKD-EPI)NonAf (>60 ml/min/1.73 sqM) Glucose (74-99) mg/dL Lactic Ac Sepsis Rflx Y Plasma Lactic Acid [place] 1.3 (0.7-2.0) mmol/L Calcium (8.4-10.2) mg/dL Total Bilirubin (0.2-1.3) mg/dL AST (14-36) U/L ALT (9-52) U/L Alkaline Phosphatase (38-126) U/L Total Protein (6.3-8.2) g/dL Albumin (3.5-5.0) g/dL Disposition Clinical Impression: Hematoma, Dehydration Disposition: HOME SELF-CARE Condition: Good Instructions (If sedation given, give patient instructions): Dehydration (ED), Hematoma (ED) Prescriptions: HYDROcodone/APAP 5-325MG [[place] 5-325] 1 tab PO Q6HR PRN #12 tab PRN Reason: Pain Is patient prescribed a controlled substance at d/c from ED?: No Referrals: Pranav Doe MD [Primary Care Provider] - 1-2 days Bao Mckee MD [STAFF PHYSICIAN] - 1-2 days Time of Disposition: 21:46
[2018-08-25 18:28] LABS: Basophils % (A) 0 %; Eosinophils # (A) 0.1 k/uL (0-0.7); Eosinophils % (A) 1 %; HCT 28.1 % (34.0-46.0); HGB 9.5 gm/dL (11.4-16.0); Lymphocytes # (A) 0.5 k/uL (1.0-4.8); Lymphocytes % (A) 5 %; MCH 31.2 pg (25.0-35.0); MCHC 33.9 g/dL (31.0-37.0); MCV 92.1 fL (80.0-100.0); Mean Platelet Volume 7.2; Monocytes # (A) 0.4 k/uL (0-1.0); Monocytes % (A) 4 %; Neutrophils % (A) 90 %; Platelet Count 229 k/uL (150-450); RBC 3.05 m/uL (3.80-5.40); RDW 14.6 % (11.5-15.5); WBC 10.1 k/uL (3.8-10.6)
[2018-08-25 18:40] LABS: Albumin 4.1 g/dL (3.5-5.0); Calcium 9.4 mg/dL (8.4-10.2); Potassium 5.6 mmol/L (3.5-5.1); Total Bilirubin 0.8 mg/dL (0.2-1.3); Total Protein 6.4 g/dL (6.3-8.2)
[2018-08-25] MEDS ORDERED: SODIUM CHLORIDE 0.9% 1,000 ML IV ONE (18:50)
--- NOTE | 2018-08-25 19:07 | US ---
EXAMINATION TYPE: US venous doppler duplex LE RT DATE OF EXAM: 08/25/2018 6:56 PM COMPARISON: NONE CLINICAL HISTORY: Pain. Right groin pain had heart ablation done 08/18/2018. SIDE PERFORMED: Right TECHNIQUE: The lower extremity deep venous system is examined utilizing real time linear array sonog martin with graded compression, doppler sonography and color-flow sonography. VESSELS IMAGED: External Iliac Vein (EIV) Common Femoral Vein Deep Femoral Vein Greater Saphenous Vein * Femoral Vein Popliteal Vein Small Saphenous Vein * Proximal Calf Veins (* superficial vessels) Right Leg: Negative for DVT Left Leg: IMPRESSION: No evidence of deep venous thrombosis in the right leg.
--- NOTE | 2018-08-25 19:17 | US ---
EXAMINATION TYPE: US lower ext pseudo artery RT DATE OF EXAM: 08/25/2018 COMPARISON: NONE CLINICAL HISTORY: Pain. EXAM PERFORMED: Grayscale and color Doppler duplex imaging performed of the groin, post cardiac ema ter to assess for pseudoaneurysm. SIDE PERFORMED: Right Color and Waveform Doppler performed to assess for the presence of pseudoaneurysm; Is there ultrasound evidence of a pseudoaneurysm: No as no communication is seen with structure to t he vessel. Is there evidence of AV shunting: No Complex area seen in right groin 6.2 x 3.4 x 3.8cm. IMPRESSION: There is a large complex mass in the right groin consistent with a hematoma. No pseudoaneurysm identi fied.
[2018-08-25] MEDS ORDERED: MORPHINE SULFATE 4 MG/ML SYRINGE IVP STA (19:32)
[2018-08-25 21:59] VITALS: BP 124/71; PULSE 86; RESP 18; TEMP 97.1
== END 2018-08-25 22:14 | disposition home or self-care (01) ==
LOC: EC 16:02
DX: L76.32 Postprocedural hematoma of skin and subcutaneous tissue following other procedure (principal); E86.0 Dehydration; R10.31 Right lower quadrant pain; E11.9 Type 2 diabetes mellitus without complications; E78.5 Hyperlipidemia, unspecified; I10 Essential (primary) hypertension; F32.9 Major depressive disorder, single episode, unspecified; Z85.3 Personal history of malignant neoplasm of breast; Z87.891 Personal history of nicotine dependence; Z79.4 Long term (current) use of insulin; Z79.899 Other long term (current) drug therapy; Z88.2 Allergy status to sulfonamides; Z88.1 Allergy status to other antibiotic agents; Z95.1 Presence of aortocoronary bypass graft
CPT/HCPCS: 36415; 80053; 83605; 85025; 93975; 93971; 93926; 99284; 96374; 96361 ×2; J2270

== ENCOUNTER 2018-12-06 21:19 | Inpatient (IN) | payer MEDICARE, BC ==
[2018-12-06] MEDS ORDERED: ADENOSINE 3 MG/ML 2 ML VIAL IVP STA ×2 (21:47→21:53)
[2018-12-06] MEDS ORDERED: SODIUM CHLORIDE 0.9% 1,000 ML IV STA (22:02)
--- NOTE | 2018-12-06 22:09 | ED ---
General Adult HPI - General Chief complaint: Chest Pain Stated complaint: Lightheaded Time Seen by Provider: 12/06/18 21:35 Source: patient Mode of arrival: ambulatory Limitations: no limitations - History of Present Illness Initial comments: Dictation was produced using [employer] dictation software. please excuse any grammatical, word or spelling errors. Chief Complaint: 73-year-old female presents with palpitations. History of Present Illness: 73-year-old female past medical history of coronary artery bypass, coronary artery disease, valve disease presents with episode of palpitations. Patient was at dinner when she was having an average. She then noted she became diaphoretic and expressing palpitations. Patient has history of palpitations in the past. 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 Patient did receive an ablation recently and was told she would need a repeat ablation procedure. Chart review shows that patient had ablation procedure for performed in August for atrial tachycardia. She also reports mild left lower chest discomfort The ROS documented in this emergency department record has been reviewed and confirmed by me. Those systems with pertinent positive or negative responses have been documented in the HPI. All other systems are other negative and/or noncontributory. PHYSICAL EXAM: General Impression: Alert and oriented x3, not in acute distress HEENT: Normocephalic atraumatic, extra-ocular movements intact, pupils equal and reactive to light bilaterally, mucous membranes moist. Cardiovascular: Tachycardic Chest: Lungs clear to auscultation bilaterally, no rhonchi, no wheeze, no rales Abdomen: Bowel sounds present, abdomen soft, non-tender, non-distended, no organomegaly Musculoskeletal: Pulses present and equal in all extremities, no peripheral edema Motor: no focal deficits noted Neurological: CN II-XII grossly intact, no focal motor or sensory deficits noted Skin: Intact with no visualized rashes Psych: Anxious ED course: 73-year-old female presents with palpitations. Vital signs upon arrival shows heart rate 164, blood pressure of 71/57, rest of vital signs withi n acceptable limits. Patient moved to the ER room bed 5 immediately. Repeat blood pressure was normotensive. Patient here to be tachycardic. Patient given initial dosing dose of 6 mg with appropriate blockage over patient resorted back to tachydysrhythmia. Patient given 12 mg of adenosine and has sinus tachycardia however there appears to be atrial tachycardia with variable block. Repeat blo od pressure was obtained on the normotensive. Patient is well-appearing. Laboratory evaluation obtained. Mild leukocytosis of 13.5 likely secondary to stress. Rest of CBC unremarkable. Coag panel is unremarkable. Metabolic panel shows mild hyperglycemia of 249 however no cardiac enzyme elevation. Chest x- ray is nonacute. Patient observed in emergency department for several hours with stable heart rates in the 110s. Patient vital signs are improved. Patient started on low-dose Cardizem drip. Given clinical presentation if she needs to be admitted to the hospital in telemetry for cardiology consultation. We'll put Dr. Palmer in a consultation. EKG interpretation: Ventricular rate 112, sinus tachycardia,. Interval 184, care 72, QTC 417. EKG shows variable NM interval however is not consistent with atrial fibrillation. This appears to be consistent with atrial tachycardia with variable block. - Related Data Home Medications Medication Instructions Recorded Confirmed Losartan Potassium [Cozaar] 25 mg PO HS 03/31/18 12/06/18 metFORMIN HCL [Glucophage] 1,000 mg PO BID 05/19/18 12/06/18 Insulin Detemir (Levemir) [Levemir] 20 unit SQ HS 05/22/18 12/06/18 Metoprolol Succinate [Toprol XL] 75 mg PO DAILY 08/25/18 12/06/18 Rosuvastatin [Crestor] 10 mg PO HS 12/06/18 12/06/18 Slow-Mag 71.5mg 71.5 mg PO BID 12/06/18 12/06/18 Venlafaxine HCl ER [Effexor Xr] 150 mg PO DAILY 12/06/18 12/06/18 Previous Rx's Medication Instructions Recorded Apixaban [Eliquis] 5 mg PO BID #60 tab 04/03/18 Allergies Allergy/AdvReac Type Severity Reaction Status Date / Time sulfamethoxazole Allergy Rash/Hives Verified 12/06/18 22:19 [From Bactrim] trimethoprim [From Bactrim] Allergy Rash/Hives Verified 12/06/18 22:19 Review of Systems ROS Statement: Those systems with pertinent positive or pertinent negative responses have been documented in the HPI. ROS Other: All systems not noted in ROS Statement are negative. Past Medical History Past Medical History: Cancer, CVA/TIA, Diabetes Mellitus, Hyperlipidemia, Hypertension, Respiratory Disorder Additional Past Medical History / Comment(s): See Dr Mckee's H&P. Hx breast cancer in 2006 with lumpectomy and radiation. BILATERAL PLEURAL EFFUSIONS. History of Any Multi-Drug Resistant Organisms: None Reported Past Surgical History: Breast Surgery, Coronary Bypass/CABG, Hernia Repair, Orthopedic Surgery, Tubal Ligation Additional Past Surgical History / Comment(s): Surgery for broken arm, CABG X 2, ZELAYA to the LAD, SVG to the OM. POSSIBLE BILATERAL THORACENTESIS. Ablation, EPS, cardioversion., Past Anesthesia/Blood Transfusion Reactions: No Reported Reaction Past Psychological History: Depression Smoking Status: Former smoker Past Alcohol Use History: Rare Past Drug Use History: None Reported - Past Family History Sister(s) Family Medical History: Cancer, Pulmonary Embolus Additional Family Medical History / Comment(s): Lung cancer. General Exam Limitations: no limitations Course Vital Signs 12/06/18 12/06/18 12/06/18 21:27 21:39 21:40 Temperature 97.8 F Pulse Rate 164 H 165 H 165 H Respiratory 19 9 L 11 L Rate Blood Pressure 71/57 101/74 O2 Sat by Pulse 98 100 100 Oximetry 12/06/18 12/06/18 12/06/18 21:45 21:50 21:55 Temperature Pulse Rate 165 H 163 H 160 H Respiratory 12 16 16 Rate Blood Pressure 101/74 93/64 95/71 O2 Sat by Pulse 100 100 Oximetry 12/06/18 12/06/18 12/06/18 22:00 22:05 22:24 Temperature Pulse Rate 133 H 115 H 112 H Respiratory 12 11 L 12 Rate Blood Pressure 116/66 129/64 96/80 O2 Sat by Pulse 95 100 100 Oximetry Medical Decision Making - Lab Data Result diagrams: 12/06/18 21:45 12/06/18 21:45 Lab Results 12/06/18 12/06/18 12/06/18 Range/Units 21:45 21:45 21:45 WBC 13.5 H (3.8-10.6) k/uL RBC 4.09 (3.80-5.40) m/uL Hgb 12.2 (11.4-16.0) gm/dL Hct 36.5 (34.0-46.0) % MCV 89.2 (80.0-100.0) fL MCH 29.8 (25.0-35.0) pg MCHC 33.4 (31.0-37.0) g/dL RDW 16.2 H (11.5-15.5) % Plt Count 239 (150-450) k/uL Neutrophils % 82 % Lymphocytes % 11 % Monocytes % 5 % Eosinophils % 1 % Basophils % 0 % Neutrophils # 11.0 H (1.3-7.7) k/uL Lymphocytes # 1.4 (1.0-4.8) k/uL Monocytes # 0.7 (0-1.0) k/uL Eosinophils # 0.2 (0-0.7) k/uL Basophils # 0.0 (0-0.2) k/uL Anisocytosis Slight PT 10.3 (9.0-12.0) sec INR 1.0 (<1.2) APTT 25.5 (22.0-30.0) sec Sodium 139 (137-145) mmol/L Potassium 4.8 (3.5-5.1) mmol/L Chloride 103 (98-107) mmol/L Carbon Dioxide 22 (22-30) mmol/L Anion Gap 14 mmol/L BUN 22 H (7-17) mg/dL Creatinine 1.01 (0.52-1.04) mg/dL Est GFR (CKD-EPI)AfAm 64 (>60 ml/min/1.73 sqM) Est GFR (CKD-EPI)NonAf 55 (>60 ml/min/1.73 sqM) Glucose 249 H (74-99) mg/dL Calcium 10.1 (8.4-10.2) mg/dL Magnesium 1.6 (1.6-2.3) mg/dL Total Bilirubin 0.4 (0.2-1.3) mg/dL AST 32 (14-36) U/L ALT 30 (9-52) U/L Alkaline Phosphatase 62 (38-126) U/L Troponin I (0.000-0.034) ng/mL Total Protein 7.3 (6.3-8.2) g/dL Albumin 4.8 (3.5-5.0) g/dL 12/06/18 Range/Units 21:45 WBC (3.8-10.6) k/uL RBC (3.80-5.40) m/uL Hgb (11.4-16.0) gm/dL Hct (34.0-46.0) % MCV (80.0-100.0) fL MCH (25.0-35.0) pg MCHC (31.0-37.0) g/dL RDW (11.5-15.5) % Plt Count (150-450) k/uL Neutrophils % % Lymphocytes % % Monocytes % % Eosinophils % % Basophils % % Neutrophils # (1.3-7.7) k/uL Lymphocytes # (1.0-4.8) k/uL Monocytes # (0-1.0) k/uL Eosinophils # (0-0.7) k/uL Basophils # (0-0.2) k/uL Anisocytosis PT (9.0-12.0) sec INR (<1.2) APTT (22.0-30.0) sec Sodium (137-145) mmol/L Potassium (3.5-5.1) mmol/L Chloride (98-107) mmol/L Carbon Dioxide (22-30) mmol/L Anion Gap mmol/L BUN (7-17) mg/dL Creatinine (0.52-1.04) mg/dL Est GFR (CKD-EPI)AfAm (>60 ml/min/1.73 sqM) Est GFR (CKD-EPI)NonAf (>60 ml/min/1.73 sqM) Glucose (74-99) mg/dL Calcium (8.4-10.2) mg/dL Magnesium (1.6-2.3) mg/dL Total Bilirubin (0.2-1.3) mg/dL AST (14-36) U/L ALT (9-52) U/L Alkaline Phosphatase (38-126) U/L Troponin I <0.012 (0.000-0.034) ng/mL Total Protein (6.3-8.2) g/dL Albumin (3.5-5.0) g/dL Disposition Clinical Impression: Palpitations Disposition: ADMITTED IP TO THIS [facility] Condition: Fair Referrals: Pranav Doe MD [Primary Care Provider] - 1-2 days Decision Time: 23:53
[2018-12-06 22:39] LABS: Albumin 4.8 g/dL (3.5-5.0); Anisocytosis Slight; Basophils % (A) 0 %; Calcium 10.1 mg/dL (8.4-10.2); Eosinophils # (A) 0.2 k/uL (0-0.7); Eosinophils % (A) 1 %; HCT 36.5 % (34.0-46.0); HGB 12.2 gm/dL (11.4-16.0); Lymphocytes # (A) 1.4 k/uL (1.0-4.8); Lymphocytes % (A) 11 %; MCH 29.8 pg (25.0-35.0); MCHC 33.4 g/dL (31.0-37.0); MCV 89.2 fL (80.0-100.0); Magnesium 1.6 mg/dL (1.6-2.3); Mean Platelet Volume 7.3; Monocytes # (A) 0.7 k/uL (0-1.0); Monocytes % (A) 5 %; Neutrophils % (A) 82 %; Platelet Count 239 k/uL (150-450); Potassium 4.8 mmol/L (3.5-5.1); RBC 4.09 m/uL (3.80-5.40); RDW 16.2 % (11.5-15.5); Total Bilirubin 0.4 mg/dL (0.2-1.3); Total Protein 7.3 g/dL (6.3-8.2); WBC 13.5 k/uL (3.8-10.6)
[2018-12-06 22:45] LABS: Partial Thromboplastin Time 25.5 sec (22.0-30.0); Prothrombin Time 10.3 sec (9.0-12.0)
--- NOTE | 2018-12-06 23:21 | XR ---
EXAM: XR Chest, 2 Views CLINICAL HISTORY: ITS.REASON XR Reason: Chest Pain TECHNIQUE: Frontal and lateral views of the chest. COMPARISON: 03/31/18 FINDINGS: Lungs: Unremarkable. No consolidation. Pleural space: Unremarkable. No pneumothorax. Heart: Cardiomegaly with stable median sternotomy wires. Mediastinum: Unremarkable. Bones/joints: See above. IMPRESSION: Stable cardiomegaly; no acute findings.
[2018-12-06] MEDS ORDERED: NALOXONE 0.4 MG/ML 1 ML VIAL IV PRN (23:54)
[2018-12-07] MEDS ORDERED: DILTIAZEM 125 MG in SODIUM CHLORIDE 0.9% 100 ML IV SCH ×2
[2018-12-07] MEDS: SODIUM CHLORIDE 0.9% 1,000 ML IV SCH ×2 (00:36→22:21)
[2018-12-07 06:17] LABS: Glucose,Whole Blood 153 mg/dL (75-99)
[2018-12-07] MEDS: INSULIN ASPART (NovoLOG) 100 UNIT/ML VIAL SQ SCH ×4 (06:53→20:54)
[2018-12-07] MEDS: APIXABAN 5 MG TAB PO SCH ×2 (08:23→20:21)
[2018-12-07] MEDS: FAMOTIDINE 20 MG TAB PO SCH ×2 (08:23→20:21)
--- NOTE | 2018-12-07 08:31 | P.CRDCN ---
History of Present Illness Consult date: 12/07/18 Requesting physician: Andrey Moore Chief complaint: Diaphoresis and palpitations History of present illness: This is a pleasant 73-year-old female who follows in the office with Dr. Trista Leigh. She has a history of diabetes, hypertension, hyperlipidemia, history of nicotine dependence, she also has history of coronary artery disease with prior bypass surgery, she underwent a ZELAYA to the LAD and saphenous vein graft to the OM branch of the circumflex in 2018. Patient also has known mild to moderate aortic stenosis. In August of this year patient was admitted to the hospital because of atrial fibrillation, as well as a secondary atrial tachycardia, she had underwent successful pulmonary vein isolation of all 4 veins and successful radiofrequency ablation. She presents to the hospital on this occasion with symptoms of diaphoresis and palpitations. According to the patient, she went to a restaurant for a birthday constitution party, just started to have a cocktail and became very diaphoretic, she had discomfort in both of her arms bilaterally and shortly thereafter noticed her heart racing fast. On arrival to the emergency room, patient's EKG on presentation to the emergency room showed what appeared to be a supraventricular tachycardia, she was given adenosine twice, and appeared to slow down a little but went right back into the rhythm. Ultimately the patient converted to a sinus tachycardia with a long first-degree AV block.. Chest x-ray was stable did not reveal any acute findings. Blood p ressure 114/60 with a heart rate in the 80s this morning, 95% on room air. White blood cell count 13.5, hemoglobin 12.2, platelet count 239. Sodium 139, potassium 4.8, BUN 22 and creatinine 1.0. Troponin 0.012. At the time of my examination this morning, patient is currently symptom-free. Past Medical History Past Medical History: Cancer, CVA/TIA, Diabetes Mellitus, Hyperlipidemia, Hypertension, Respiratory Disorder Additional Past Medical History / Comment(s): See Dr Mckee's H&P. Hx breast cancer in 2005 with lumpectomy and radiation. BILATERAL PLEURAL EFFUSIONS. TIA November 01 History of Any Multi-Drug Resistant Organisms: None Reported Past Surgical History: Breast Surgery, Coronary Bypass/CABG, Hernia Repair, Orthopedic Surgery, Tubal Ligation Additional Past Surgical History / Comment(s): Surgery for broken arm, CABG X 2, ZELAYA to the LAD, SVG to the OM. POSSIBLE BILATERAL THORACENTESIS. Ablation, EPS, cardioversion., Past Anesthesia/Blood Transfusion Reactions: No Reported Reaction Past Psychological History: Depression Smoking Status: Former smoker Past Alcohol Use History: Rare Additional Past Alcohol Use History / Comment(s): Quit smoking at 21 yrs of age. Past Drug Use History: None Reported - Past Family History Sister(s) Family Medical History: Cancer, Pulmonary Embolus Additional Family Medical History / Comment(s): Lung cancer. Medications and Allergies Home Medications Medication Instructions Recorded Confirmed Type Losartan Potassium [Cozaar] 25 mg PO HS 03/31/18 12/06/18 History Apixaban [Eliquis] 5 mg PO BID #60 tab 04/03/18 12/06/18 Rx metFORMIN HCL [Glucophage] 1,000 mg PO BID 05/19/18 12/06/18 History Insulin Detemir (Levemir) [Levemir] 20 unit SQ HS 05/22/18 12/06/18 History Metoprolol Succinate [Toprol XL] 75 mg PO DAILY 08/25/18 12/06/18 History Rosuvastatin [Crestor] 10 mg PO HS 12/06/18 12/06/18 History Slow-Mag 71.5mg 71.5 mg PO BID 12/06/18 12/06/18 History Venlafaxine HCl ER [Effexor Xr] 150 mg PO DAILY 12/06/18 12/06/18 History Allergies Allergy/AdvReac Type Severity Reaction Status Date / Time sulfamethoxazole Allergy Rash/Hives Verified 12/06/18 22:19 [From Bactrim] trimethoprim [From Bactrim] Allergy Rash/Hives Verified 12/06/18 22:19 Physical Exam Vitals: Vital Signs Temp Pulse Pulse Resp BP BP Pulse Ox 12/07/18 03:22 88 16 12/07/18 03:21 98.6 F 88 16 113/57 95 12/07/18 01:46 94 18 12/07/18 01:06 97.9 F 94 18 132/74 97 12/07/18 00:38 98.2 F 113 H 14 109/62 96 12/07/18 00:04 98.4 F 112 H 14 117/59 98 12/06/18 22:24 112 H 12 96/80 100 12/06/18 22:05 115 H 11 L 129/64 100 12/06/18 22:00 133 H 12 116/66 95 12/06/18 21:55 160 H 16 95/71 100 12/06/18 21:50 163 H 16 93/64 12/06/18 21:45 165 H 12 101/74 100 12/06/18 21:40 165 H 11 L 101/74 100 12/06/18 21:39 165 H 9 L 100 12/06/18 21:27 97.8 F 164 H 19 71/57 98 Intake and Output 12/06/18 12/07/18 12/07/18 22:59 06:59 14:59 Other: Voiding Method Toilet # Voids 1 Weight 67.132 kg 67.2 kg PHYSICAL EXAMINATION: GENERAL: 83-year-old female in no acute distress at the time of my examination HEENT: Head is atraumatic, normocephalic. Pupils equal, round. Sclera anicteric. Conjunctiva are clear. Mucous membranes of the mouth are moist. Neck is supple. There is no elevated jugular venous pressure. No carotid bruit is heard. HEART EXAMINATION: R S1 and S2 irregularly irregular a systolic ejection murmur is heard. CHEST EXAMINATION: Lungs are clear to auscultation and precussion. No chest wall tenderness is noted on palpation or with deep breathing. ABDOMEN: Soft, nontender. Bowel sounds are heard. No organomegaly noted. EXTREMITIES: 2+ peripheral pulses with no evidence of peripheral edema and no calf tenderness noted. NEUROLOGIC patient is awake, alert and oriented 3 . . Results 12/06/18 21:45 12/06/18 21:45 Cardiac Enzymes 12/06/18 12/06/18 Range/Units 21:45 21:45 AST 32 (14-36) U/L Troponin I <0.012 (0.000-0.034) ng/mL Coagulation 12/06/18 Range/Units 21:45 PT 10.3 (9.0-12.0) sec APTT 25.5 (22.0-30.0) sec CBC 12/06/18 Range/Units 21:45 WBC 13.5 H (3.8-10.6) k/uL RBC 4.09 (3.80-5.40) m/uL Hgb 12.2 (11.4-16.0) gm/dL Hct 36.5 (34.0-46.0) % Plt Count 239 (150-450) k/uL Comprehensive Metabolic Panel 12/06/18 Range/Units 21:45 Sodium 139 (137-145) mmol/L Potassium 4.8 (3.5-5.1) mmol/L Chloride 103 (98-107) mmol/L Carbon Dioxide 22 (22-30) mmol/L BUN 22 H (7-17) mg/dL Creatinine 1.01 (0.52-1.04) mg/dL Glucose 249 H (74-99) mg/dL Calcium 10.1 (8.4-10.2) mg/dL AST 32 (14-36) U/L ALT 30 (9-52) U/L Alkaline Phosphatase 62 (38-126) U/L Total Protein 7.3 (6.3-8.2) g/dL Albumin 4.8 (3.5-5.0) g/dL Current Medications Generic Name Dose Route Start Last Admin Trade Name Freq PRN Reason Stop Dose Admin Apixaban 5 mg 12/07/18 09:00 Eliquis PO BID [facility] Atorvastatin Calcium 20 mg 12/07/18 21:00 Lipitor PO HS [facility] Famotidine 20 mg 12/07/18 09:00 Pepcid PO BID [facility] Diltiazem HCl 125 mg/ Sodium 125 mls @ 5 mls/hr 12/07/18 00:00 12/07/18 00:36 Chloride IV 5 mg/hr .Q24H [facility] 5 mls/hr Administration 5 MG/HR Sodium Chloride 1,000 mls @ 20 mls/hr 12/06/18 23:45 12/07/18 00:36 Saline 0.9% IV 20 mls/hr .Q24H [facility] Administration Insulin Aspart 0 unit 12/07/18 07:30 12/07/18 06:53 Novolog SQ 1 unit ACHS [facility] Administration Protocol Insulin Detemir 20 unit 12/07/18 21:00 Levemir SQ HS [facility] Naloxone HCl 0.2 mg 12/06/18 23:54 Narcan IV Q2M PRN Opioid Reversal Intake and Output 12/06/18 12/07/18 12/07/18 22:59 06:59 14:59 Other: Voiding Method Toilet # Voids 1 Weight 67.132 kg 67.2 kg 12/06/18 21:45 12/06/18 21:45 EKG Interpretations (text) Initial EKG showed a supraventricular tachycardia with a heart rate of 160. Assessment and Plan Plan: Assessment and plan #1 Atrial tachycardia #2 history of paroxysmal atrial fibrillation and atrial tachycardia with prior ablation in August of this year #3 history of coronary artery disease with prior bypass surgery #4 mild to moderate aortic stenosis #5 diabetes #6 hypertension #7 hyperlipidemia #8 history of nicotine dependence Plan Patient just had an echocardiogram with Doppler study performed in the office on so we will not repeat an echo on this admission. Magnesium level is 1.6, we will replace magnesium. We will obtain a TSH level. Patient in sinus tach with firt degree this morning. Continue Eliquis, Lipitor, resume the patient's metoprolol which she takes at home along with the Cozaar, and discontinue the Cardizem drip. Consult Dr Mckee. Further recommendations to follow. DNP note has been reviewed, I agree with a documented findings and plan of care. Patient was seen and examined.
[2018-12-07] MEDS: MAGNESIUM SULFATE-D5W PMX 1 GM in DEXTROSE/WATER 1 100ML.BAG IVPB SCH ×2 (08:52→11:09)
[2018-12-07] MEDS: METOPROLOL SUCCINATE (ER) 25 MG TAB.ER.24H PO SCH (09:26)
[2018-12-07 11:51] LABS: Glucose,Whole Blood 166 mg/dL (75-99)
[2018-12-07 16:47] LABS: Glucose,Whole Blood 253 mg/dL (75-99)
[2018-12-07] MEDS: LOSARTAN 25 MG TAB PO SCH (20:21)
[2018-12-07] MEDS: ATORVASTATIN 20 MG TAB PO SCH (20:21)
[2018-12-07] MEDS: INSULIN DETEMIR (LEVEMIR) 100 UNIT/ML SYR SQ SCH (20:54)
[2018-12-07 21:02] LABS: Glucose,Whole Blood 147 mg/dL (75-99)
--- NOTE | 2018-12-07 21:27 | HP ---
HISTORY AND PHYSICAL DATE OF ADMISSION: 12/06/2018 DATE OF SERVICE: 12/07/2018. PRESENTING COMPLAINT: Heart racing. HISTORY OF PRESENTING COMPLAINT: This is a very pleasant 73-year-old patient who follows with Dr. Pranav Doe. The patient also follows with factory laborer, Dr. Bao Mckee. The patient has a history of atrial fibrillation, flutter, atrial tachycardia, did undergo ablation in August of this year. The patient's chronic stable medical conditions include coronary artery disease with bypass in 2018, depression, diabetes, hypertension, hyperlipidemia, breast cancer. The patient was sitting down in the rest room with a friend, had a couple of sips of her drink, broke out in a sweat, felt heart racing and some discomfort in the arms. Also had a chest pressure lasted for 2 hours. The patient presented to the ER, was found to be in some kind of atrial fibrillation/tachycardia. Admitted for the same. Dr. Mckee/Cardiology was consulted. When I saw the patient earlier this afternoon, patient was feeling somewhat better. Overall patient's symptoms lasted for 2 hours yesterday. The patient also in October of this year had a TIA where her speech had become involved. Workup was negative for the same. REVIEW OF SYSTEMS: CONSTITUTIONAL: None. HEENT: None. RESPIRATORY: As above. CARDIOVASCULAR as above. GASTROINTESTINAL none. GENITOURINARY: None. MUSCULOSKELETAL: None. DERMATOLOGICAL: None. HEMATOLOGICAL: None. LYMPHATIC: None. PSYCHIATRY: Depression controlled. NEUROLOGICAL: None. PAST MEDICAL HISTORY: TIA in October 2018, diabetes mellitus type 2, hypertension, hyperlipidemia, breast cancer 2006 with lumpectomy and radiation, coronary artery disease with bypass, atrial flutter, atrial tachycardia with ablation. PAST SURGICAL HISTORY: Breast lumpectomy, coronary artery bypass, hernia repair, tubal ligation, surgery for broken arm, cardioversion in August of this year. PSYCH HISTORY: Depression. SOCIAL HISTORY: Does not smoke. Lives by herself. Alcohol socially. FAMILY HISTORY: Of pulmonary embolism, lung cancer. HOME MEDICATIONS: 1. Slow-Mag 71.5 mg p.o. b.i.d. 2. Crestor 10 mg q.h.s. 3. Cozaar 25 mg q.h.s. 4. Levemir 20 units units subcu q.h.s. 5. Glucophage 1000 mg b.i.d. 6. Effexor XR 150 mg p.o. daily. 7. Toprol-XL 75 mg p.o. daily. 8. Eliquis 5 mg p.o. b.i.d. ALLERGIES: BACTRIM. PHYSICAL EXAMINATION: VITAL SIGNS: Vital signs on presentation: Temperature 97.8, pulse 164, respiration 19, blood pressure down to 71/57, pulse ox 98% on room air. GENERAL APPEARANCE: Average built, sitting up in a chair. Comfortable. EYES: Pupils are equal. Conjunctivae normal. HEENT: External appearance of nose and ears normal. Oral cavity normal. NECK: JVD not raised. Mass not palpable. RESPIRATORY: Effort normal. LUNGS fair entry. CARDIOVASCULAR: First and second sounds normal. No edema. ABDOMEN: Soft, nontender. Liver and spleen not palpable. LYMPHATICS: No lymph nodes palpable in the neck and axilla. PSYCHIATRY: Alert and oriented x3. Mood and affect normal. NEUROLOGICAL: Pupils equal. Cranial nerves grossly intact. Power and sensation grossly intact. INVESTIGATIONS: White count 13.5, hemoglobin 12.2. Potassium 4.8. BUN 22, creatinine 1.01. Accu- Cheks are noted. Troponin less than 0.012. TSH 1.690. EKG tracing personally reviewed by me shows form of atrial tachycardia with some ST-segment changes. Chest x- ray film, personally reviewed by me shows cardiomegaly with questionable venous prominence. ASSESSMENT: 1. This is a patient with a history of atrial flutter fibrillation, atrial tachycardia, prior ablation now presented what appears to be atrial tachycardia with possible flutter with rapid ventricular rate with underlying chest pressure. The patient's last 2D echocardiogram was in February of 2018 that showed EF of 50-55 percent and also showed severe mitral regurgitation and moderate tricuspid regurgitation. The patient also had a echocardiogram by Dr. Mckee's office about a week ago. 2. Diabetes mellitus type 2 on oral hypoglycemic. 3. Essential hypertension. 4. Hyperlipidemia. 5. Coronary artery disease with history of bypass in 2018. 6. Severe mitral regurgitation. 7. Moderate tricuspid regurgitation, nonrheumatic. 8. Hypertensive heart disease. PLAN: Home medications are resumed. Dr. Mckee was consulted. We will get a 2-D echocardiogram results from Dr. Mckee's office. We will check the patient's BMP. Care was discussed with the patient. Questions were answered. Copy to Pranav Doe. MMODL / IJN: [id number] /
[2018-12-08 06:15] LABS: Glucose,Whole Blood 174 mg/dL (75-99)
[2018-12-08] MEDS: INSULIN ASPART (NovoLOG) 100 UNIT/ML VIAL SQ SCH ×4 (06:24→22:05)
[2018-12-08 06:58] LABS: Calcium 9.8 mg/dL (8.4-10.2); Magnesium 1.7 mg/dL (1.6-2.3); Potassium 4.9 mmol/L (3.5-5.1)
[2018-12-08] MEDS: DILTIAZEM 125 MG in SODIUM CHLORIDE 0.9% 100 ML IV SCH ×2 (07:50→16:18)
[2018-12-08] MEDS: APIXABAN 5 MG TAB PO SCH ×2 (07:53→20:14)
[2018-12-08] MEDS: FAMOTIDINE 20 MG TAB PO SCH ×2 (07:54→20:14)
[2018-12-08] MEDS: METOPROLOL SUCCINATE (ER) 25 MG TAB.ER.24H PO SCH (07:54)
[2018-12-08] MEDS ORDERED: DILTIAZEM DRIP BOLUS FROM BAG 1 MG SOLN IV ONE (08:08)
[2018-12-08] MEDS: SODIUM CHLORIDE 0.9% 1,000 ML IV SCH (08:21)
[2018-12-08 12:05] LABS: Glucose,Whole Blood 283 mg/dL (75-99)
--- NOTE | 2018-12-08 15:09 | P.PN ---
Subjective Progress Note Date: 12/08/18 This is a pleasant 73-year-old female who follows in the office with Dr. Trista Leigh. She has a history of diabetes, hypertension, hyperlipidemia, history of nicotine dependence, she also has history of coronary artery disease with prior bypass surgery, she underwent a ZELAYA to the LAD and saphenous vein graft to the OM branch of the circumflex in 2018. Patient also has known mild to moderate aortic stenosis. In August of this year patient was admitted to the hospital because of atrial fibrillation, as well as a secondary atrial tachycardia, she had underwent successful pulmonary vein isolation of all 4 veins and successful radiofrequency ablation. She presents to the hospital on this occasion with symptoms of diaphoresis and palpitations. According to the patient, she went to a restaurant for a birthday democrat, just started to have a cocktail and became very diaphoretic, she had discomfort in both of her arms bilaterally and shortly thereafter noticed her heart racing fast. On arrival to the emergency room, patient's EKG on presentation to the emergency room showed what appeared to be a supraventricular tachycardia, in the form of atrial tachycardia she was given adenosine twice, and appeared to slow down a little but went right back into the rhythm. Ultimately the patient converted to a sinus tachycardia with a long first-degree AV block.. Chest x-ray was stable did not reveal any acute findings. Blood pressure 114/60 with a heart rate in the 80s this morning, 95% on room air. White blood cell count 13.5, hemoglobin 12.2, platelet count 239. Sodium 139, potassium 4.8, BUN 22 and creatinine 1.0. Troponin 0.012. At the time of my examination this morning, patient is currently symptom-free. 12/08/2018 Patient was seen and examined this morning, her heart rate was up to 220, again back in a rapid atrial tachycardia. Her blood pressure was stable at 118/60, I gave 5 mg of IV Cardizem with subsequent drip at 5 mg per hour and shortly thereafter patient slowed down. Currently in normal sinus rhythm at this time with PACs. Blood pressure 102/60 with a heart rate in the 90s at present, 100% on 2 L of oxygen. Sodium 143, potassium 4.9, BUN 26 and creatinine 0.8, magnesium is 1.7 which we will replace today. Objective - Vital Signs Vital signs: Vital Signs Temp 98.5 F 12/08/18 11:28 Pulse 95 12/08/18 11:28 Resp 16 12/08/18 11:28 BP 101/69 12/08/18 11:28 Pulse Ox 100 12/08/18 11:28 Intake & Output 12/07/18 12/08/18 12/08/18 18:59 06:59 18:59 Intake Total 660 300 365 Output Total 600 Balance 60 300 365 Weight 67.6 kg Intake: IV 125 Diltiazem 125 mg In 25 Sodium Chloride 0.9% 100 ml @ 5 MG/HR 5 mls/hr IV .Q24H [facility] Rx#:[id number] Sodium Chloride 0.9% 1, 100 000 ml @ 20 mls/hr IV . Q24H [facility] Rx#:[id number] Oral 660 300 240 Output: Urine 600 Other: Voiding Method Toilet Toilet Toilet # Voids 1 1 - Exam PHYSICAL EXAMINATION: GENERAL: 83-year-old female in no acute distress at the time of my e xamination HEENT: Head is atraumatic, normocephalic. Pupils equal, round. Sclera anicteric. Conjunctiva are clear. Mucous membranes of the mouth are moist. Neck is supple. There is no elevated jugular venous pressure. No carotid bruit is heard. HEART EXAMINATION: R S1 and S2 irregularly irregular a systolic ejection murmur is heard. CHEST EXAMINATION: Lungs are clear to auscultation and precussion. No chest wall tenderness is noted on palpation or with deep breathing. ABDOMEN: Soft, nontender. Bowel sounds are heard. No organomegaly noted. EXTREMITIES: 2+ peripheral pulses with no evidence of peripheral edema and no calf tenderness noted. NEUROLOGIC patient is awake, alert and oriented 3 . - Labs CBC & Chem 7: 12/06/18 21:45 12/08/18 05:35 Labs: Abnormal Lab Results - Last 24 Hours (Table) 12/07/18 12/07/18 12/08/18 Range/Units 16:44 20:47 05:35 Chloride 108 H (98-107) mmol/L BUN 26 H (7-17) mg/dL Glucose 165 H (74-99) mg/dL POC Glucose (mg/dL) 253 H 147 H (75-99) mg/dL 12/08/18 12/08/18 Range/Units 06:14 11:44 Chloride (98-107) mmol/L BUN (7-17) mg/dL Glucose (74-99) mg/dL POC Glucose (mg/dL) 174 H 283 H (75-99) mg/dL Assessment and Plan Plan: Assessment and plan #1 Atrial tachycardia #2 history of paroxysmal atrial fibrillation and atrial tachycardia with prior ablation in August of this year #3 history of coronary artery disease with prior bypass surgery #4 mild to moderate aortic stenosis #5 diabetes #6 hypertension #7 hyperlipidemia #8 history of nicotine dependence Plan At this point in time we will continue the patient on IV Cardizem drip. Along with the oral beta stiven. Dr. Mckee consultation has been requested and he will see the patient today. We will obtain an echo from the office performed on , as well as any recent stress testing. DNP note has been reviewed, I agree with a documented findings and plan of care. Patient was seen and examined.
[2018-12-08 17:02] LABS: Glucose,Whole Blood 177 mg/dL (75-99)
[2018-12-08] MEDS: LOSARTAN 25 MG TAB PO SCH (20:14)
[2018-12-08] MEDS: ATORVASTATIN 20 MG TAB PO SCH (20:14)
[2018-12-08 20:21] LABS: Glucose,Whole Blood 205 mg/dL (75-99)
[2018-12-08 20:50] LABS: Basophils % (A) 0 %; Eosinophils # (A) 0.2 k/uL (0-0.7); Eosinophils % (A) 4 %; HCT 32.4 % (34.0-46.0); HGB 10.9 gm/dL (11.4-16.0); Lymphocytes # (A) 1.4 k/uL (1.0-4.8); Lymphocytes % (A) 27 %; MCH 29.9 pg (25.0-35.0); MCHC 33.7 g/dL (31.0-37.0); MCV 88.8 fL (80.0-100.0); Mean Platelet Volume 7.9; Monocytes # (A) 0.4 k/uL (0-1.0); Monocytes % (A) 8 %; Neutrophils # (A) 2.9 k/uL (1.3-7.7); Neutrophils % (A) 58 %; Platelet Count 161 k/uL (150-450); RBC 3.65 m/uL (3.80-5.40); RDW 15.9 % (11.5-15.5)
[2018-12-08 21:01] LABS: Calcium 9.4 mg/dL (8.4-10.2); Potassium 4.5 mmol/L (3.5-5.1)
[2018-12-08 21:11] LABS: Glucose,Whole Blood 191 mg/dL (75-99)
[2018-12-08] MEDS: INSULIN DETEMIR (LEVEMIR) 100 UNIT/ML SYR SQ SCH (22:03)
--- NOTE | 2018-12-08 23:21 | PN ---
PROGRESS NOTE DATE OF SERVICE: December 08, 2018. PRESENTING COMPLAINT: Heart racing. INTERVAL HISTORY: This patient with known atrial fibrillation, atrial tachycardia with prior ablation, presents with a recurrent episode. The patient has been on IV Cardizem drip, beta stiven, had a similar episode this morning. Awaiting evaluation by Dr. Mckee. Patient's family is present. REVIEW OF SYSTEMS: Done for constitutional, cardiovascular, GI, pulmonary; relevant findings as above. CURRENT MEDICATIONS: Reviewed that include IV Cardizem drip and Toprol-XL 75 mg. PHYSICAL EXAMINATION: VITAL SIGNS: Temperature 98.5, pulse 107, respirations 16, blood pressure 101/71 pulse ox 97% on 2 L. GENERAL APPEARANCE: Sitting up, awake. EYES: Pupils are equal. Conjunctivae normal. NECK: JVD not raised. Mass not palpable. RESPIRATORY: Effort normal. LUNGS are clear. CARDIOVASCULAR: Heart, 1st and 2nd sounds normal. No edema. ABDOMEN: Soft, nontender. Liver and spleen not palpable. PSYCHIATRY: Alert and oriented x3. Mood and affect normal. INVESTIGATIONS: White count 5, hemoglobin 10.9, potassium 4.5. ASSESSMENT: 1. Recurrent episodes of atrial tachycardia/flutter fibrillation with a prior history of ablation. 2. Severe mitral regurgitation and moderate tricuspid regurgitation, nonrheumatic. 3. Diabetes mellitus type 2 on oral hypoglycemic. 4. Essential hypertension. 5. Hyperlipidemia. 6. Coronary artery disease with bypass in 2018. 7. Hypertensive heart disease. PLAN: Continue medication and treatment plan. Await input from Dr. Mckee. Follow. MMODL / IJN: [id number] /
[2018-12-09 02:53] LABS: Glucose,Whole Blood 145 mg/dL (75-99)
[2018-12-09] MEDS: SODIUM CHLORIDE 0.9% 1,000 ML IV SCH (05:24)
[2018-12-09 06:09] LABS: Glucose,Whole Blood 135 mg/dL (75-99)
[2018-12-09 07:00] LABS: Basophils % (A) 0 %; Eosinophils # (A) 0.2 k/uL (0-0.7); Eosinophils % (A) 4 %; HGB 11.3 gm/dL (11.4-16.0); Lymphocytes # (A) 1.1 k/uL (1.0-4.8); Lymphocytes % (A) 26 %; MCH 29.5 pg (25.0-35.0); MCHC 33.1 g/dL (31.0-37.0); MCV 89.1 fL (80.0-100.0); Mean Platelet Volume 7.1; Monocytes # (A) 0.3 k/uL (0-1.0); Monocytes % (A) 7 %; Neutrophils # (A) 2.6 k/uL (1.3-7.7); Neutrophils % (A) 61 %; Platelet Count 160 k/uL (150-450); RBC 3.81 m/uL (3.80-5.40); RDW 15.4 % (11.5-15.5); WBC 4.2 k/uL (3.8-10.6)
[2018-12-09] MEDS: METOPROLOL SUCCINATE (ER) 25 MG TAB.ER.24H PO SCH ×2 (10:04→20:45)
[2018-12-09] MEDS: INSULIN ASPART (NovoLOG) 100 UNIT/ML VIAL SQ SCH ×4 (10:04→23:43)
[2018-12-09] MEDS: FAMOTIDINE 20 MG TAB PO SCH ×2 (10:04→20:45)
[2018-12-09] MEDS: APIXABAN 5 MG TAB PO SCH ×2 (10:04→20:45)
[2018-12-09 12:10] LABS: Glucose,Whole Blood 174 mg/dL (75-99)
--- NOTE | 2018-12-09 16:32 | P.PN ---
Subjective Progress Note Date: 12/09/18 This is a pleasant 73-year-old female who follows in the office with Dr. Trista Leigh. She has a history of diabetes, hypertension, hyperlipidemia, history of nicotine dependence, she also has history of coronary artery disease with prior bypass surgery, she underwent a ZELAYA to the LAD and saphenous vein graft to the OM branch of the circumflex in 2018. Patient also has known mild to moderate aortic stenosis. In August of this year patient was admitted to the hospital because of atrial fibrillation, as well as a secondary atrial tachycardia, she had underwent successful pulmonary vein isolation of all 4 veins and successful radiofrequency ablation. She presents to the hospital on this occasion with symptoms of diaphoresis and palpitations. According to the patient, she went to a restaurant for a birthday alliance party, just started to have a cocktail and became very diaphoretic, she had discomfort in both of her arms bilaterally and shortly thereafter noticed her heart racing fast. On arrival to the emergency room, patient's EKG on presentation to the emergency room showed what appeared to be a supraventricular tachycardia, in the form of atrial tachycardia she was given adenosine twice, and appeared to slow down a little but went right back into the rhythm. Ultimately the patient converted to a sinus tachycardia with a long first-degree AV block.. Chest x-ray was stable did not reveal any acute findings. Blood pressure 114/60 with a heart rate in the 80s this morning, 95% on room air. White blood cell count 13.5, hemoglobin 12.2, platelet count 239. Sodium 139, potassium 4.8, BUN 22 and creatinine 1.0. Troponin 0.012. At the time of my examination this morning, patient is currently symptom-free. 12/08/2018 Patient was seen and examined this morning, her heart rate was up to 220, again back in a rapid atrial tachycardia. Her blood pressure was stable at 118/60, I gave 5 mg of IV Cardizem with subsequent drip at 5 mg per hour and shortly thereafter patient slowed down. Currently in normal sinus rhythm at this time with PACs. Blood pressure 102/60 with a heart rate in the 90s at present, 100% on 2 L of oxygen. Sodium 143, potassium 4.9, BUN 26 and creatinine 0.8, magnesium is 1.7 which we will replace today. 12/09/2018 Patient was seen and examined this morning, she feels well, she's been up ambulating in the hallway without any difficulty. She had just drank a large cup of caffeinated beverage prior to us coming in and did feel some slight p alpitations. An EKG was performed which does show some atrial tachycardia with a fairly controlled ventricular response. Objective - Vital Signs Vital signs: Vital Signs Temp 98.1 F 12/09/18 12:20 Pulse 109 H 12/09/18 12:20 Resp 18 12/09/18 12:20 BP 138/75 12/09/18 12:20 Pulse Ox 95 12/09/18 12:20 Intake & Output 12/08/18 12/09/18 12/09/18 18:59 06:59 18:59 Intake Total 439.993 6547 600 Output Total 400 Balance 588.195 2724 200 Weight 65.9 kg Intake: IV 125 50 Diltiazem 125 mg In 25 10 Sodium Chloride 0.9% 100 ml @ 5 MG/HR 5 mls/hr IV .Q24H TORIBIO Rx#:[id number] Sodium Chloride 0.9% 1, 100 40 000 ml @ 20 mls/hr IV . Q24H TORIBIO Rx#:[id number] Intake, IV Titration 42.333 Amount Diltiazem 125 mg In 42.333 Sodium Chloride 0.9% 100 ml @ 5 MG/HR 5 mls/hr IV .Q24H TORIBIO Rx#:[id number] Oral 600 960 600 Output: Urine 400 Other: Voiding Method Toilet # Voids 1 2 - Exam PHYSICAL EXAMINATION: GENERAL: 83-year-old female in no acute distress at the time of my examination HEENT: Head is atraumatic, normocephalic. Pupils equal, round. Sclera anicteric. Conjunctiva are clear. Mucous membranes of the mouth are moist. Neck is supple. There is no elevated jugular venous pressure. No carotid bruit is heard. HEART EXAMINATION: R S1 and S2 irregularly irregular a systolic ejection murmur is heard. CHEST EXAMINATION: Lungs are clear to auscultation and precussion. No chest wall tenderness is noted on palpation or with deep breathing. ABDOMEN: Soft, nontender. Bowel sounds are heard. No organomegaly noted. EXTREMITIES: 2+ peripheral pulses with no evidence of peripheral edema and no calf tenderness noted. NEUROLOGIC patient is awake, alert and oriented 3 . - Labs CBC & Chem 7: 12/09/18 06:32 12/08/18 20:33 Labs: Abnormal Lab Results - Last 24 Hours (Table) 12/08/18 12/08/18 12/08/18 Range/Units 16:52 20:20 20:33 RBC (3.80-5.40) m/uL Hgb (11.4-16.0) gm/dL Hct (34.0-46.0) % RDW (11.5-15.5) % BUN 24 H (7-17) mg/dL Glucose 184 H (74-99) mg/dL POC Glucose (mg/dL) 177 H 205 H (75-99) mg/dL Magnesium (1.6-2.3) mg/dL 12/08/18 12/08/18 12/09/18 Range/Units 20:33 21:10 02:51 RBC 3.65 L (3.80-5.40) m/uL Hgb 10.9 L (11.4-16.0) gm/dL Hct 32.4 L (34.0-46.0) % RDW 15.9 H (11.5-15.5) % BUN (7-17) mg/dL Glucose (74-99) mg/dL POC Glucose (mg/dL) 191 H 145 H (75-99) mg/dL Magnesium (1.6-2.3) mg/dL 12/09/18 12/09/18 12/09/18 Range/Units 06:07 06:32 06:32 RBC (3.80-5.40) m/uL Hgb 11.3 L (11.4-16.0) gm/dL Hct (34.0-46.0) % RDW (11.5-15.5) % BUN (7-17) mg/dL Glucose (74-99) mg/dL POC Glucose (mg/dL) 135 H (75-99) mg/dL Magnesium 1.5 L (1.6-2.3) mg/dL 12/09/18 Range/Units 11:50 RBC (3.80-5.40) m/uL Hgb (11.4-16.0) gm/dL Hct (34.0-46.0) % RDW (11.5-15.5) % BUN (7-17) mg/dL Glucose (74-99) mg/dL POC Glucose (mg/dL) 174 H (75-99) mg/dL Magnesium (1.6-2.3) mg/dL Assessment and Plan Plan: Assessment and plan #1 Atrial tachycardia #2 history of paroxysmal atrial fibrillation and atrial tachycardia with prior ablation in August of this year #3 history of coronary artery disease with prior bypass surgery #4 mild to moderate aortic stenosis #5 diabetes #6 hypertension #7 hyperlipidemia #8 history of nicotine dependence Plan At this point in time we will continue the patient on IV Cardizem drip. Along with the oral beta stiven. Dr. Mckee consultation has been requested and he will see the patient today. Echocardiogram with Doppler study revealed a normal left ventricular systolic function. DNP note has been reviewed, I agree with a documented findings and plan of care. Patient was seen and examined.
[2018-12-09 16:48] LABS: Glucose,Whole Blood 180 mg/dL (75-99)
--- NOTE | 2018-12-09 20:01 | P.CRDCN ---
History of Present Illness History of present illness: Impression Residual atrial tachycardia post extensive A. fib ablation involving pulmonary vein isolation, septal ablation, mitral isthmus ablation Prior atrial flutter ablation Patient presented to the hospital with applications sweating and dizziness and lightheadedness Twelve-lead ECG showed supraventricular tachycardia with one-to-one conduction/atrial tachycardia Given IV adenosine was given clear P waves are noted with a cycle length that matched R-R interval Plan EP study radiofrequency ablation of atrial tachycardia was discussed Administration of class III antiarrhythmic drugs including amiodarone dofetilide and sotalol were discussed Possibility of basal ablated strategy with His bundle pacing was discussed She is on metformin 1000 mg twice daily which is a major contraindication for dofetilide Other options include sotalol or amiodarone She is not interested in taking amiodarone given its side effect profile especially lung toxicity She is also on venlafaxine for major depression There is a possible QT prolongation effect with this At this time I would continue anticoagulation Rate controlled with metoprolol succinate 75 mg twice a day Tomorrow morning IV diltiazem will be discontinued I would keep her in the hospital for 48 hours, and later in the hallways to make sure that she is not having atrial tachycardia with RVR despite a total 150 of metoprolol succinate Her magnesium is chronically low and I will give her 2 mg of IV magnesium and thereafter add spironolactone as well as oral Slow-Mag on a daily basis I will schedule her for an atrial tachycardia/A. fib ablation Past Medical History Past Medical History: Cancer, CVA/TIA, Diabetes Mellitus, Hyperlipidemia, Hypertension, Respiratory Disorder Additional Past Medical History / Comment(s): See Dr Mckee's H&P. Hx breast cancer in 2005 with lumpectomy and radiation. BILATERAL PLEURAL EFFUSIONS. TIA November 01 History of Any Multi-Drug Resistant Organisms: None Reported Past Surgical History: Breast Surgery, Coronary Bypass/CABG, Hernia Repair, Orthopedic Surgery, Tubal Ligation Additional Past Surgical History / Comment(s): Surgery for broken arm, CABG X 2, ZELAYA to the LAD, SVG to the OM. POSSIBLE BILATERAL THORACENTESIS. Ablation, E PS, cardioversion., Past Anesthesia/Blood Transfusion Reactions: No Reported Reaction Past Psychological History: Depression Smoking Status: Former smoker Past Alcohol Use History: Rare Additional Past Alcohol Use History / Comment(s): Quit smoking at 21 yrs of age. Past Drug Use History: None Reported - Past Family History Sister(s) Family Medical History: Cancer, Pulmonary Embolus Additional Family Medical History / Comment(s): Lung cancer. Medications and Allergies Home Medications Medication Instructions Recorded Confirmed Type Losartan Potassium [Cozaar] 25 mg PO HS 03/31/18 12/06/18 History Apixaban [Eliquis] 5 mg PO BID #60 tab 04/03/18 12/06/18 Rx metFORMIN HCL [Glucophage] 1,000 mg PO BID 05/19/18 12/06/18 History Insulin Detemir (Levemir) [Levemir] 20 unit SQ HS 05/22/18 12/06/18 History Metoprolol Succinate [Toprol XL] 75 mg PO DAILY 08/25/18 12/06/18 History Rosuvastatin [Crestor] 10 mg PO HS 12/06/18 12/06/18 History Slow-Mag 71.5mg 71.5 mg PO BID 12/06/18 12/06/18 History Venlafaxine HCl ER [Effexor Xr] 150 mg PO DAILY 12/06/18 12/06/18 History Allergies Allergy/AdvReac Type Severity Reaction Status Date / Time sulfamethoxazole Allergy Rash/Hives Verified 12/06/18 22:19 [From Bactrim] trimethoprim [From Bactrim] Allergy Rash/Hives Verified 12/06/18 22:19 Physical Exam Vitals: Vital Signs Temp Pulse Pulse Resp BP BP Pulse Ox 12/09/18 16:35 98.1 F 99 18 125/80 94 L 12/09/18 12:20 98.1 F 109 H 18 138/75 95 12/09/18 08:30 98.2 F 108 H 18 140/83 96 12/09/18 04:00 97.3 F L 98 16 144/64 97 12/09/18 00:00 97 F L 98 16 126/76 97 12/08/18 22:17 86 16 99/58 98 12/08/18 20:00 98.3 F 102 H 16 122/80 98 Intake and Output 12/09/18 12/09/18 12/09/18 06:59 14:59 22:59 Intake Total 400 600 240 Output Total 400 Balance 400 200 240 Intake: Oral 400 600 240 Output: Urine 400 Other: # Voids 2 Weight 65.9 kg Results 12/09/18 06:32 12/08/18 20:33 CBC 12/08/18 12/09/18 Range/Units 20:33 06:32 WBC 5.0 4.2 (3.8-10.6) k/uL RBC 3.65 L 3.81 (3.80-5.40) m/uL Hgb 10.9 L 11.3 L (11.4-16.0) gm/dL Hct 32.4 L 34.0 (34.0-46.0) % Plt Count 161 160 (150-450) k/uL Comprehensive Metabolic Panel 12/08/18 Range/Units 20:33 Sodium 141 (137-145) mmol/L Potassium 4.5 (3.5-5.1) mmol/L Chloride 104 (98-107) mmol/L Carbon Dioxide 30 (22-30) mmol/L BUN 24 H (7-17) mg/dL Creatinine 0.97 (0.52-1.04) mg/dL Glucose 184 H (74-99) mg/dL Calcium 9.4 (8.4-10.2) mg/dL Current Medications Generic Name Dose Route Start Last Admin Trade Name Freq PRN Reason Stop Dose Admin Apixaban 5 mg 12/07/18 09:00 12/09/18 10:04 Eliquis PO 5 mg BID TORIBIO Administration Atorvastatin Calcium 20 mg 12/07/18 21:00 12/08/18 20:14 Lipitor PO 20 mg HS TORIBIO Administration Famotidine 20 mg 12/07/18 09:00 12/09/18 10:04 Pepcid PO 20 mg BID TORIBIO Administration Sodium Chloride 1,000 mls @ 20 mls/hr 12/06/18 23:45 12/09/18 05:24 Saline 0.9% IV 20 mls/hr .Q24H TORIBIO Administration Diltiazem HCl 125 mg/ Sodium 125 mls @ 5 mls/hr 12/08/18 08:15 12/08/18 16:18 Chloride IV 5 mg/hr .Q24H TORIBIO 5 mls/hr Administration 5 MG/HR Magnesium Sulfate/Dextrose 1 100 mls @ 100 mls/hr 12/09/18 20:00 gm/ IV Solution IVPB 12/09/18 21:59 Q1H TORIBIO Insulin Aspart 0 unit 06/02/19 07:30 12/09/18 17:32 Novolog SQ 2 unit ACHS TORIBIO Administration Protocol Insulin Detemir 20 unit 12/07/18 21:00 12/08/18 22:03 Levemir SQ 20 unit HS TORIBIO Administration Losartan Potassium 25 mg 12/07/18 21:00 12/08/18 20:14 Cozaar PO 25 mg HS TORIBIO Administration Metoprolol Succinate 75 mg 12/09/18 20:00 Toprol Xl PO BID TORIBIO Naloxone HCl 0.2 mg 12/06/18 23:54 Narcan IV Q2M PRN Opioid Reversal Venlafaxine HCl 150 mg 12/09/18 20:00 Effexor Xr PO DAILY TORIBIO Intake and Output 12/09/18 12/09/18 12/09/18 06:59 14:59 22:59 Intake Total 400 600 240 Output Total 400 Balance 400 200 240 Intake: Oral 400 600 240 Output: Urine 400 Other: # Voids 2 Weight 65.9 kg 12/09/18 06:32 12/08/18 20:33
[2018-12-09] MEDS: ATORVASTATIN 20 MG TAB PO SCH (20:45)
[2018-12-09] MEDS: LOSARTAN 25 MG TAB PO SCH (20:45)
[2018-12-09] MEDS: MAGNESIUM SULFATE-D5W PMX 1 GM in DEXTROSE/WATER 1 100ML.BAG IVPB SCH ×2 (20:46→23:40)
[2018-12-09] MEDS: VENLAFAXINE HCL ER 150 MG CAP PO SCH (20:49)
[2018-12-09 20:56] LABS: Glucose,Whole Blood 197 mg/dL (75-99)
--- NOTE | 2018-12-09 22:49 | PN ---
PROGRESS NOTE DATE OF SERVICE: 12/09/2018. PRESENTING COMPLAINT: Heart racing. INTERVAL HISTORY: This patient has known atrial fibrillation/atrial tachycardia with prior ablation, presented with increased heart rate. The patient has been on Cardizem drip and beta stiven. Seen by Dr. Mckee this evening. His plan is noted. REVIEW OF SYSTEMS: Done for constitutional, cardiovascular, GI, pulmonary; relevant findings as above. CURRENT MEDICATIONS: Reviewed that include IV Cardizem drip and Toprol-XL total of 150 mg a day. PHYSICAL EXAMINATION: Temperature 98.2, pulse 110, respirations 18, blood pressure 138/75, pulse ox 95% on room air. GENERAL: Sitting up, awake. EYES: Pupils are equal. Conjunctivae normal. NECK: JVD not raised. Mass not palpable. Respiratory effort normal. LUNGS: Clear. CARDIOVASCULAR: 1st and 2nd sounds normal. No edema. ABDOMEN: Soft, nontender. Liver and spleen not palpable. PSYCHIATRY: Alert and oriented x3. Mood and affect normal. INVESTIGATIONS: White count 4.2, magnesium 1.5. ASSESSMENT: 1. Recurrent atrial tachycardia, flutter, fibrillation with rapid ventricular rate. 2. Severe mitral regurgitation and moderate tricuspid regurgitation, nonrheumatic. 3. Diabetes mellitus type 2 on oral hypoglycemic. 4. Essential hypertension. 5. Hyperlipidemia. 6. Coronary artery disease with bypass in 2018. 7. Hypertensive heart disease. 8. Hypomagnesemia. PLAN: Continue on Cardizem drip, that will be stopped tomorrow morning. Keep on the beta stiven. Supplement magnesium. Per Dr. Mckee, patient to be here for another 48 hours. Increase activity. MMODL / IJN: [id number] /
[2018-12-09] MEDS: INSULIN DETEMIR (LEVEMIR) 100 UNIT/ML SYR SQ SCH (23:40)
[2018-12-10 05:46] LABS: Glucose,Whole Blood 166 mg/dL (75-99)
[2018-12-10 06:55] LABS: Calcium 9.4 mg/dL (8.4-10.2); Potassium 4.9 mmol/L (3.5-5.1); Total Bilirubin 0.5 mg/dL (0.2-1.3); Total Protein 6.2 g/dL (6.3-8.2)
[2018-12-10] MEDS: INSULIN ASPART (NovoLOG) 100 UNIT/ML VIAL SQ SCH ×4 (09:50→21:05)
[2018-12-10] MEDS: APIXABAN 5 MG TAB PO SCH ×2 (09:58→21:06)
[2018-12-10] MEDS: METOPROLOL SUCCINATE (ER) 25 MG TAB.ER.24H PO SCH ×2 (09:58→21:05)
[2018-12-10] MEDS: FAMOTIDINE 20 MG TAB PO SCH ×2 (09:58→21:05)
[2018-12-10] MEDS: VENLAFAXINE HCL ER 150 MG CAP PO SCH (09:58)
[2018-12-10 12:12] LABS: Glucose,Whole Blood 156 mg/dL (75-99)
--- NOTE | 2018-12-10 13:27 | P.PN ---
Subjective Progress Note Date: 12/10/18 This is a pleasant 73-year-old female who follows in the office with Dr. Trista Leigh. She has a history of diabetes, hypertension, hyperlipidemia, history of nicotine dependence, she also has history of coronary artery disease with prior bypass surgery, she underwent a ZELAYA to the LAD and saphenous vein graft to the OM branch of the circumflex in 2018. Patient also has known mild to moderate aortic stenosis. In August of this year patient was admitted to the hospital because of atrial fibrillation, as well as a secondary atrial tachycardia, she had underwent successful pulmonary vein isolation of all 4 veins and successful radiofrequency ablation. She presents to the hospital on this occasion with symptoms of diaphoresis and palpitations. According to the patient, she went to a restaurant for a birthday green party, just started to have a cocktail and became very diaphoretic, she had discomfort in both of her arms bilaterally and shortly thereafter noticed her heart racing fast. On arrival to the emergency room, patient's EKG on presentation to the emergency room showed what appeared to be a supraventricular tachycardia, in the form of atrial tachycardia she was given adenosine twice, and appeared to slow down a little but went right back into the rhythm. Ultimately the patient converted to a sinus tachycardia with a long first-degree AV block.. Chest x-ray was stable did not reveal any acute findings. Blood pressure 114/60 with a heart rate in the 80s this morning, 95% on room air. White blood cell count 13.5, hemoglobin 12.2, platelet count 239. Sodium 139, potassium 4.8, BUN 22 and creatinine 1.0. Troponin 0.012. At the time of my examination this morning, patient is currently symptom-free. 12/08/2018 Patient was seen and examined this morning, her heart rate was up to 220, again back in a rapid atrial tachycardia. Her blood pressure was stable at 118/60, I gave 5 mg of IV Cardizem with subsequent drip at 5 mg per hour and shortly thereafter patient slowed down. Currently in normal sinus rhythm at this time with PACs. Blood pressure 102/60 with a heart rate in the 90s at present, 100% on 2 L of oxygen. Sodium 143, potassium 4.9, BUN 26 and creatinine 0.8, magnesium is 1.7 which we will replace today. 12/09/2018 Patient was seen and examined this morning, she feels well, she's been up ambulating in the hallway without any difficulty. She had just drank a large cup of caffeinated beverage prior to us coming in and did feel some slight p alpitations. An EKG was performed which does show some atrial tachycardia with a fairly controlled ventricular response. 12/10/2018 Patient was seen and examined this morning, she feels well, she's had no further episodes of rapid atrial tachycardia. The patient was seen in consultation by Dr. Huitron yesterday and adjustments were made to her beta stiven dose. The plan is to continue to monitor her for another 48 hours. We will also monitor heart rate with ambulation. Blood pressure 110/60 with a heart rate in the 70s to 90s. 100% on room air. Objective - Vital Signs Vital signs: Vital Signs Temp 98 F 12/10/18 08:30 Pulse 95 12/10/18 08:30 Resp 17 12/10/18 08:30 BP 110/59 12/10/18 08:30 Pulse Ox 100 12/10/18 08:30 Intake & Output 12/09/18 12/10/18 12/10/18 18:59 06:59 18:59 Intake Total 840 Output Total 400 Balance 440 Weight 67.4 kg Intake: Oral 840 Output: Urine 400 Other: # Voids 1 - Exam PHYSICAL EXAMINATION: GENERAL: 83-year-old female in no acute distress at the time of my examination HEENT: Head is atraumatic, normocephalic. Pupils equal, round. Sclera anicteric. Conjunctiva are clear. Mucous membranes of the mouth are moist. Neck is supple. There is no elevated jugular venous pressure. No carotid bruit is heard. HEART EXAMINATION: R S1 and S2 irregularly irregular a systolic ejection murmur is heard. CHEST EXAMINATION: Lungs are clear to auscultation and precussion. No chest wall tenderness is noted on palpation or with deep breathing. ABDOMEN: Soft, nontender. Bowel sounds are heard. No organomegaly noted. EXTREMITIES: 2+ peripheral pulses with no evidence of peripheral edema and no calf tenderness noted. NEUROLOGIC patient is awake, alert and oriented 3 . - Labs CBC & Chem 7: 12/09/18 06:32 12/10/18 06:03 Labs: Abnormal Lab Results - Last 24 Hours (Table) 0612/09/18 12/10/18 Range/Units 16:45 20:55 05:45 Carbon Dioxide (22-30) mmol/L BUN (7-17) mg/dL Glucose (74-99) mg/dL POC Glucose (mg/dL) 180 H 197 H 166 H (75-99) mg/dL AST (14-36) U/L Total Protein (6.3-8.2) g/dL 12/10/18 12/10/18 Range/Units 06:03 12:04 Carbon Dioxide 31 H (22-30) mmol/L BUN 22 H (7-17) mg/dL Glucose 143 H (74-99) mg/dL POC Glucose (mg/dL) 156 H (75-99) mg/dL AST 37 H (14-36) U/L Total Protein 6.2 L (6.3-8.2) g/dL Assessment and Plan Plan: Assessment and plan #1 Atrial tachycardia #2 history of paroxysmal atrial fibrillation and atrial tachycardia with prior ablation in August of this year #3 history of coronary artery disease with prior bypass surgery #4 mild to moderate aortic stenosis #5 diabetes #6 hypertension #7 hyperlipidemia #8 history of nicotine dependence Plan From cardiology's perspective, we'll continue current dose of beta stiven as increased by Dr. Mckee. Continue to monitor the patient for another 48 hours. DNP note has been reviewed, I agree with a documented findings and plan of care. Patient was seen and examined.
[2018-12-10 17:03] LABS: Glucose,Whole Blood 189 mg/dL (75-99)
[2018-12-10 20:54] LABS: Glucose,Whole Blood 241 mg/dL (75-99)
[2018-12-10] MEDS: INSULIN DETEMIR (LEVEMIR) 100 UNIT/ML SYR SQ SCH (21:05)
[2018-12-10] MEDS: ATORVASTATIN 20 MG TAB PO SCH (21:05)
[2018-12-10] MEDS: LOSARTAN 25 MG TAB PO SCH (21:05)
--- NOTE | 2018-12-10 23:17 | PN ---
PROGRESS NOTE DATE OF SERVICE: 12/10/2018 PRESENTING COMPLAINT: Tired. INTERVAL HISTORY: Patient admitted with known atrial fibrillation, atrial tachycardia with prior ablation. She presented with increased heart rate. Patient remains on Cardizem drip and beta stiven. Symptoms are better. She has been up in the hallway. REVIEW OF SYSTEMS: Done for constitutional, cardiovascular, GI, pulmonary; relevant findings as above. CURRENT MEDICATIONS: Reviewed. They include Toprol-XL 75 mg b.i.d. and Cozaar. PHYSICAL EXAMINATION: Temperature 98, pulse 95, respiration 18, blood pressure 116/61, pulse ox 95% on room air. GENERAL APPEARANCE: Sitting up, awake. EYES: Pupils equal. Conjunctivae normal. NECK: JVD not raised. Mass not palpable. RESPIRATORY: Effort normal. Lungs are clear. CARDIOVASCULAR: First and second sounds normal. No edema. ABDOMEN: Soft, non-tender. Liver and spleen not palpable. PSYCHIATRY: Alert and oriented x3. Mood and affect normal. INVESTIGATIONS: Potassium 4.9, BUN 22, creatinine 0.83. Accu-Cheks noted. ASSESSMENT: 1. Recurrent atrial tachycardia, flutter/fibrillation with rapid ventricular rate, now better controlled. 2. Severe mitral regurgitation and moderate tricuspid regurgitation, non-rheumatic. 3. Diabetes mellitus, type 2, on oral hypoglycemic. 4. Essential hypertension. 5. Hyperlipidemia. 6. Coronary artery disease with prior bypass in 2018. 7. Hypertensive heart disease. 8. Hypomagnesemia. PLAN: Continue current medication and treatment plan as per Dr. Mckee and Cardiology. The patient was seen by Dr. Annie Leigh. Watch for another 24 hours. The patient's IV Cardizem was discontinued this morning. MMODL / IJN: [id number] /
[2018-12-11 05:56] LABS: Glucose,Whole Blood 122 mg/dL (75-99)
[2018-12-11] MEDS: INSULIN ASPART (NovoLOG) 100 UNIT/ML VIAL SQ SCH ×4 (06:04→21:27)
[2018-12-11] MEDS: VENLAFAXINE HCL ER 150 MG CAP PO SCH (09:33)
[2018-12-11] MEDS: FAMOTIDINE 20 MG TAB PO SCH ×2 (09:33→21:28)
[2018-12-11] MEDS: APIXABAN 5 MG TAB PO SCH ×2 (09:33→21:28)
[2018-12-11] MEDS: METOPROLOL SUCCINATE (ER) 25 MG TAB.ER.24H PO SCH ×2 (09:33→21:28)
[2018-12-11] MEDS: SODIUM CHLORIDE 0.9% 1,000 ML IV SCH ×2 (11:07→12:05)
[2018-12-11 11:54] LABS: Glucose,Whole Blood 128 mg/dL (75-99)
--- NOTE | 2018-12-11 14:15 | P.PN ---
Subjective Progress Note Date: 12/11/18 This is a pleasant 73-year-old female who follows in the office with Dr. Trista Leigh. She has a history of diabetes, hypertension, hyperlipidemia, history of nicotine dependence, she also has history of coronary artery disease with prior bypass surgery, she underwent a ZELAYA to the LAD and saphenous vein graft to the OM branch of the circumflex in 2018. Patient also has known mild to moderate aortic stenosis. In August of this year patient was admitted to the hospital because of atrial fibrillation, as well as a secondary atrial tachycardia, she had underwent successful pulmonary vein isolation of all 4 veins and successful radiofrequency ablation. She presents to the hospital on this occasion with symptoms of diaphoresis and palpitations. According to the patient, she went to a restaurant for a birthday green party, just started to have a cocktail and became very diaphoretic, she had discomfort in both of her arms bilaterally and shortly thereafter noticed her heart racing fast. On arrival to the emergency room, patient's EKG on presentation to the emergency room showed what appeared to be a supraventricular tachycardia, in the form of atrial tachycardia she was given adenosine twice, and appeared to slow down a little but went right back into the rhythm. Ultimately the patient converted to a sinus tachycardia with a long first-degree AV block.. Chest x-ray was stable did not reveal any acute findings. Blood pressure 114/60 with a heart rate in the 80s this morning, 95% on room air. White blood cell count 13.5, hemoglobin 12.2, platelet count 239. Sodium 139, potassium 4.8, BUN 22 and creatinine 1.0. Troponin 0.012. At the time of my examination this morning, patient is currently symptom-free. 12/08/2018 Patient was seen and examined this morning, her heart rate was up to 220, again back in a rapid atrial tachycardia. Her blood pressure was stable at 118/60, I gave 5 mg of IV Cardizem with subsequent drip at 5 mg per hour and shortly thereafter patient slowed down. Currently in normal sinus rhythm at this time with PACs. Blood pressure 102/60 with a heart rate in the 90s at present, 100% on 2 L of oxygen. Sodium 143, potassium 4.9, BUN 26 and creatinine 0.8, magnesium is 1.7 which we will replace today. 12/09/2018 Patient was seen and examined this morning, she feels well, she's been up ambulating in the hallway without any difficulty. She had just drank a large cup of caffeinated beverage prior to us coming in and did feel some slight p alpitations. An EKG was performed which does show some atrial tachycardia with a fairly controlled ventricular response. 12/10/2018 Patient was seen and examined this morning, she feels well, she's had no further episodes of rapid atrial tachycardia. The patient was seen in consultation by Dr. Mckee yesterday and adjustments were made to her beta stiven dose. The plan is to continue to monitor her for another 48 hours. We will also monitor heart rate with ambulation. Blood pressure 110/60 with a heart rate in the 70s to 90s. 100% on room air. 12/11/2018 A shunt was seen and examined this morning, doing well, up ambulating in the hallway without any difficulty. She remains in an atrial tachycardia, heart rate in the 90s. No further rapid episodes of atrial tachycardia noted. Objective - Vital Signs Vital signs: Vital Signs Temp 98.2 F 12/11/18 08:00 Pulse 103 H 12/11/18 12:00 Resp 17 12/11/18 12:00 BP 112/69 12/11/18 12:00 Pulse Ox 96 12/11/18 12:00 Intake & Output 12/10/18 12/11/18 12/11/18 18:59 06:59 18:59 Intake Total 380 470 600 Output Total 1000 Balance -620 470 600 Weight 67.2 kg Intake: Oral 380 470 600 Output: Urine 1000 Other: Voiding Method Toilet # Voids 1 1 2 - Exam PHYSICAL EXAMINATION: GENERAL: 83-year-old female in no acute distress at the time of my examination HEENT: Head is atraumatic, normocephalic. Pupils equal, round. Sclera anicteric. Conjunctiva are clear. Mucous membranes of the mouth are moist. Neck is supple. There is no elevated jugular venous pressure. No carotid bruit is heard. HEART EXAMINATION: R S1 and S2 irregularly irregular a systolic ejection murmur is heard. CHEST EXAMINATION: Lungs are clear to auscultation and precussion. No chest wall tenderness is noted on palpation or with deep breathing. ABDOMEN: Soft, nontender. Bowel sounds are heard. No organomegaly noted. EXTREMITIES: 2+ peripheral pulses with no evidence of peripheral edema and no calf tenderness noted. NEUROLOGIC patient is awake, alert and oriented 3 . - Labs CBC & Chem 7: 12/09/18 06:32 12/10/18 06:03 Labs: Abnormal Lab Results - Last 24 Hours (Table) 12/10/18 12/10/18 12/11/18 Range/Units 17:00 20:52 05:55 POC Glucose (mg/dL) 189 H 241 H 122 H (75-99) mg/dL 12/11/18 Range/Units 11:51 POC Glucose (mg/dL) 128 H (75-99) mg/dL Assessment and Plan Plan: Assessment and plan #1 Atrial tachycardia #2 history of paroxysmal atrial fibrillation and atrial tachycardia with prior ablation in August of this year #3 history of coronary artery disease with prior bypass surgery #4 mild to moderate aortic stenosis #5 diabetes #6 hypertension #7 hyperlipidemia #8 history of nicotine dependence Plan From cardiology's perspective, we'll continue current dose of beta stiven as increased by Dr. Mckee. Continue to monitor the patient for another 24 hours. DNP note has been reviewed, I agree with a documented findings and plan of care. Patient was seen and examined.
[2018-12-11 17:19] LABS: Glucose,Whole Blood 150 mg/dL (75-99)
[2018-12-11 20:53] LABS: Glucose,Whole Blood 159 mg/dL (75-99)
[2018-12-11] MEDS: LOSARTAN 25 MG TAB PO SCH (21:28)
[2018-12-11] MEDS: INSULIN DETEMIR (LEVEMIR) 100 UNIT/ML SYR SQ SCH (21:28)
[2018-12-11] MEDS: ATORVASTATIN 20 MG TAB PO SCH (21:28)
--- NOTE | 2018-12-11 23:50 | PN ---
PROGRESS NOTE DATE OF SERVICE: 12/11/2018. PRESENTING COMPLAINT: Heart racing. INTERVAL HISTORY: Patient presented with atrial tachycardia with prior ablation. Initially was on a Cardizem drip, now on beta stiven, being observed. Heart rate has been running in the 90s up and about in the hallway. Symptoms are much better. REVIEW OF SYSTEMS: Done for constitutional, cardiovascular, GI, pulmonary; relevant findings above. CURRENT MEDICATIONS: Reviewed that include Toprol-XL 75 mg b.i.d. PHYSICAL EXAMINATION: Temperature 98.2, pulse 100, respirations 20, blood pressure 106/62, pulse ox 98% on room air. LUNGS: Clear. CARDIOVASCULAR: First and some. ABDOMEN: Soft, nontender. Liver and spleen not palpable. PSYCHIATRY: Alert and oriented x3. Mood and affect normal. INVESTIGATIONS: Accu-Cheks are noted. ASSESSMENT: 1. Recurrent atrial tachycardia with rapid ventricular rate on presentation now better controlled. 2. Severe mitral regurgitation and moderate tricuspid regurgitation, nonrheumatic. 3. Diabetes mellitus type 2 on oral hypoglycemic. 4. Essential hypertension. 5. Hyperlipidemia. 6. Coronary artery disease, prior history of coronary bypass in 2018. 7. Hypertensive heart disease. 8. Hypomagnesemia, corrected. PLAN: Continue medication and treatment plan. Patient will discharged when okay with Dr. Mckee/Cardiology. MMBRITTNEYL / IJN: [id number] /
[2018-12-12 06:31] LABS: Glucose,Whole Blood 112 mg/dL (75-99)
[2018-12-12] MEDS: INSULIN ASPART (NovoLOG) 100 UNIT/ML VIAL SQ SCH ×4 (06:33→20:27)
[2018-12-12] MEDS: SODIUM CHLORIDE 0.9% 1,000 ML IV SCH ×2 (09:34→09:41)
[2018-12-12] MEDS: APIXABAN 5 MG TAB PO SCH ×2 (09:41→20:27)
[2018-12-12] MEDS: METOPROLOL SUCCINATE (ER) 25 MG TAB.ER.24H PO SCH ×2 (09:41→20:27)
[2018-12-12] MEDS: FAMOTIDINE 20 MG TAB PO SCH ×2 (09:41→20:27)
[2018-12-12] MEDS: VENLAFAXINE HCL ER 150 MG CAP PO SCH (09:46)
[2018-12-12 12:09] LABS: Glucose,Whole Blood 240 mg/dL (75-99)
[2018-12-12 15:22] VITALS: BMI 25.8
--- NOTE | 2018-12-12 15:22 | P.PN ---
Subjective Progress Note Date: 12/12/18 This is a pleasant 73-year-old female who follows in the office with Dr. Trista Leigh. She has a history of diabetes, hypertension, hyperlipidemia, history of nicotine dependence, she also has history of coronary artery disease with prior bypass surgery, she underwent a ZELAYA to the LAD and saphenous vein graft to the OM branch of the circumflex in 2018. Patient also has known mild to moderate aortic stenosis. In August of this year patient was admitted to the hospital because of atrial fibrillation, as well as a secondary atrial tachycardia, she had underwent successful pulmonary vein isolation of all 4 veins and successful radiofrequency ablation. She presents to the hospital on this occasion with symptoms of diaphoresis and palpitations. According to the patient, she went to a restaurant for a birthday green party, just started to have a cocktail and became very diaphoretic, she had discomfort in both of her arms bilaterally and shortly thereafter noticed her heart racing fast. On arrival to the emergency room, patient's EKG on presentation to the emergency room showed what appeared to be a supraventricular tachycardia, in the form of atrial tachycardia she was given adenosine twice, and appeared to slow down a little but went right back into the rhythm. Ultimately the patient converted to a sinus tachycardia with a long first-degree AV block.. Chest x-ray was stable did not reveal any acute findings. Blood pressure 114/60 with a heart rate in the 80s this morning, 95% on room air. White blood cell count 13.5, hemoglobin 12.2, platelet count 239. Sodium 139, potassium 4.8, BUN 22 and creatinine 1.0. Troponin 0.012. At the time of my examination this morning, patient is currently symptom-free. 12/08/2018 Patient was seen and examined this morning, her heart rate was up to 220, again back in a rapid atrial tachycardia. Her blood pressure was stable at 118/60, I gave 5 mg of IV Cardizem with subsequent drip at 5 mg per hour and shortly thereafter patient slowed down. Currently in normal sinus rhythm at this time with PACs. Blood pressure 102/60 with a heart rate in the 90s at present, 100% on 2 L of oxygen. Sodium 143, potassium 4.9, BUN 26 and creatinine 0.8, magnesium is 1.7 which we will replace today. 12/09/2018 Patient was seen and examined this morning, she feels well, she's been up ambulating in the hallway without any difficulty. She had just drank a large cup of caffeinated beverage prior to us coming in and did feel some slight p alpitations. An EKG was performed which does show some atrial tachycardia with a fairly controlled ventricular response. 12/10/2018 Patient was seen and examined this morning, she feels well, she's had no further episodes of rapid atrial tachycardia. The patient was seen in consultation by Dr. Mckee yesterday and adjustments were made to her beta stievn dose. The plan is to continue to monitor her for another 48 hours. We will also monitor heart rate with ambulation. Blood pressure 110/60 with a heart rate in the 70s to 90s. 100% on room air. 12/11/2018 Patient was seen and examined this morning, doing well, up ambulating in the hallway without any difficulty. She remains in an atrial tachycardia, heart rate in the 90s. No further rapid episodes of atrial tachycardia noted. 12/12/2018 Patient was seen and examined this morning, she's been ambulating most of the day today, with ambulation her heart rate goes up to about 100, no further rapid episodes of atrial tachycardia noted. Dr. Mckee did have a conversation with the patient, recommended her to undergo ablation procedure, this will be performed on Saturday. Until that time patient will be kept in the hospital and observed. Blood pressure 96/50 with a heart rate of 90, 99% on room air. Objective - Vital Signs Vital signs: Vital Signs Temp 98.4 F 12/12/18 11:39 Pulse 99 12/12/18 11:39 Resp 18 12/12/18 11:39 BP 96/51 12/12/18 11:39 Pulse Ox 99 12/12/18 11:39 Intake & Output 12/11/18 12/12/18 12/12/18 18:59 06:59 18:59 Intake Total 960 420 Output Total 350 Balance 960 70 Weight 68.36 kg Intake: Oral 960 420 Output: Urine 350 Other: Voiding Method Toilet # Voids 2 1 1 - Exam PHYSICAL EXAMINATION: GENERAL: 83-year-old female in no acute distress at the time of my examination HEENT: Head is atraumatic, normocephalic. Pupils equal, round. Sclera anicteric. Conjunctiva are clear. Mucous membranes of the mouth are moist. Neck is supple. There is no elevated jugular venous pressure. No carotid bru it is heard. HEART EXAMINATION: R S1 and S2 irregularly irregular a systolic ejection murmur is heard. CHEST EXAMINATION: Lungs are clear to auscultation and precussion. No chest wall tenderness is noted on palpation or with deep breathing. ABDOMEN: Soft, nontender. Bowel sounds are heard. No organomegaly noted. EXTREMITIES: 2+ peripheral pulses with no evidence of peripheral edema and no ca lf tenderness noted. NEUROLOGIC patient is awake, alert and oriented 3 . - Labs CBC & Chem 7: 12/09/18 06:32 12/10/18 06:03 Labs: Abnormal Lab Results - Last 24 Hours (Table) 12/11/18 12/11/18 12/12/18 Range/Units 16:59 20:51 06:30 POC Glucose (mg/dL) 150 H 159 H 112 H (75-99) mg/dL 12/12/18 Range/Units 11:46 POC Glucose (mg/dL) 240 H (75-99) mg/dL Assessment and Plan Plan: Assessment and plan #1 Atrial tachycardia #2 history of paroxysmal atrial fibrillation and atrial tachycardia with prior ablation in August of this year #3 history of coronary artery disease with prior bypass surgery #4 mild to moderate aortic stenosis #5 diabetes #6 hypertension #7 hyperlipidemia #8 history of nicotine dependence Plan From cardiology's perspective, we'll continue current dose of beta stiven as increased by Dr. Mckee. Ablation procedure is scheduled for Saturday, patient will remain in the hospital until that time. DNP note has been reviewed, I agree with a documented findings and plan of care. Patient was seen and examined.
[2018-12-12 16:50] LABS: Glucose,Whole Blood 180 mg/dL (75-99)
[2018-12-12 20:23] LABS: Glucose,Whole Blood 196 mg/dL (75-99)
[2018-12-12] MEDS: ATORVASTATIN 20 MG TAB PO SCH (20:27)
[2018-12-12] MEDS: INSULIN DETEMIR (LEVEMIR) 100 UNIT/ML SYR SQ SCH (20:27)
[2018-12-12] MEDS: LOSARTAN 25 MG TAB PO SCH (20:27)
[2018-12-13 06:42] LABS: Glucose,Whole Blood 91 mg/dL (75-99)
[2018-12-13] MEDS: INSULIN ASPART (NovoLOG) 100 UNIT/ML VIAL SQ SCH ×4 (06:44→20:50)
[2018-12-13] MEDS: SODIUM CHLORIDE 0.9% 1,000 ML IV SCH ×2 (08:38→14:31)
[2018-12-13] MEDS: METOPROLOL SUCCINATE (ER) 25 MG TAB.ER.24H PO SCH ×2 (08:41→20:50)
[2018-12-13] MEDS: APIXABAN 5 MG TAB PO SCH ×2 (08:41→20:50)
[2018-12-13] MEDS: FAMOTIDINE 20 MG TAB PO SCH ×2 (08:42→20:50)
[2018-12-13] MEDS: VENLAFAXINE HCL ER 150 MG CAP PO SCH (08:44)
--- NOTE | 2018-12-13 10:49 | PN ---
PROGRESS NOTE DATE OF SERVICE: 12/12/2018 PRESENTING COMPLAINT: Increased heart rate. INTERVAL HISTORY: This patient was seen by me yesterday morning. The patient has atrial tachycardia with ambulation, heart rate goes to over 100s. The patient is on a beta stiven. Otherwise, patient is doing fine. I spoke to Dr. Mckee. Plan is to keep the patient in the hospital and go for EP intervention on Saturday. REVIEW OF SYSTEMS: Done for constitutional, cardiovascular, GI, pulmonary; relevant findings as above. CURRENT MEDICATIONS: Reviewed that includes Toprol-XL 25 mg b.i.d. PHYSICAL EXAMINATION: Temperature 98.4, pulse up to 110, respiration 18, blood pressure 96/51, pulse ox 99% on room air. GENERAL APPEARANCE: Sitting up in a chair, awake. EYES: Pupils equal, conjunctivae are normal. NECK: JVD not raised. Mass not palpable. RESPIRATORY: Effort normal. LUNGS: Clear. CARDIOVASCULAR: First and second sounds are normal. No edema. ABDOMEN: Soft, nontender. Liver and spleen not palpable. PSYCHIATRY: Alert and oriented x3, mood and affect normal. INVESTIGATIONS: Accu-Cheks are noted. ASSESSMENT: 1. Recurrent atrial tachycardia with increased heart rate, especially with ambulation. 2. Severe mitral regurgitation and moderate tricuspid regurgitation, nonrheumatic. 3. Diabetes mellitus type 2 on oral hypoglycemic. 4. Essential hypertension. 5. Hyperlipidemia. 6. Coronary artery disease, prior history of coronary bypass in 2018. 7. Hypertensive heart disease. PLAN: As discussed with Dr. Mckee, patient remaining here will be observed. Plan is for him to do intervention on Saturday. This was conveyed to the patient. MMODL / IJN: [id number] /
[2018-12-13 11:49] LABS: Glucose,Whole Blood 145 mg/dL (75-99)
--- NOTE | 2018-12-13 14:06 | P.PN ---
Subjective Progress Note Date: 12/13/18 This is a pleasant 73-year-old female who follows in the office with Dr. Trista Leigh. She has a history of diabetes, hypertension, hyperlipidemia, history of nicotine dependence, she also has history of coronary artery disease with prior bypass surgery, she underwent a ZELAYA to the LAD and saphenous vein graft to the OM branch of the circumflex in 2018. Patient also has known mild to moderate aortic stenosis. In August of this year patient was admitted to the hospital because of atrial fibrillation, as well as a secondary atrial tachycardia, she had underwent successful pulmonary vein isolation of all 4 veins and successful radiofrequency ablation. She presents to the hospital on this occasion with symptoms of diaphoresis and palpitations. According to the patient, she went to a restaurant for a birthday constitution party, just started to have a cocktail and became very diaphoretic, she had discomfort in both of her arms bilaterally and shortly thereafter noticed her heart racing fast. On arrival to the emergency room, patient's EKG on presentation to the emergency room showed what appeared to be a supraventricular tachycardia, in the form of atrial tachycardia she was given adenosine twice, and appeared to slow down a little but went right back into the rhythm. Ultimately the patient converted to a sinus tachycardia with a long first-degree AV block.. Chest x-ray was stable did not reveal any acute findings. Blood pressure 114/60 with a heart rate in the 80s this morning, 95% on room air. White blood cell count 13.5, hemoglobin 12.2, platelet count 239. Sodium 139, potassium 4.8, BUN 22 and creatinine 1.0. Troponin 0.012. At the time of my examination this morning, patient is currently symptom-free. 12/08/2018 Patient was seen and examined this morning, her heart rate was up to 220, again back in a rapid atrial tachycardia. Her blood pressure was stable at 118/60, I gave 5 mg of IV Cardizem with subsequent drip at 5 mg per hour and shortly thereafter patient slowed down. Currently in normal sinus rhythm at this time with PACs. Blood pressure 102/60 with a heart rate in the 90s at present, 100% on 2 L of oxygen. Sodium 143, potassium 4.9, BUN 26 and creatinine 0.8, magnesium is 1.7 which we will replace today. 12/09/2018 Patient was seen and examined this morning, she feels well, she's been up ambulating in the hallway without any difficulty. She had just drank a large cup of caffeinated beverage prior to us coming in and did feel some slight p alpitations. An EKG was performed which does show some atrial tachycardia with a fairly controlled ventricular response. 12/10/2018 Patient was seen and examined this morning, she feels well, she's had no further episodes of rapid atrial tachycardia. The patient was seen in consultation by Dr. Mckee yesterday and adjustments were made to her beta stiven dose. The plan is to continue to monitor her for another 48 hours. We will also monitor heart rate with ambulation. Blood pressure 110/60 with a heart rate in the 70s to 90s. 100% on room air. 12/11/2018 Patient was seen and examined this morning, doing well, up ambulating in the hallway without any difficulty. She remains in an atrial tachycardia, heart rate in the 90s. No further rapid episodes of atrial tachycardia noted. 12/12/2018 Patient was seen and examined this morning, she's been ambulating most of the day today, with ambulation her heart rate goes up to about 100, no further rapid episodes of atrial tachycardia noted. Dr. Mckee did have a conversation with the patient, recommended her to undergo ablation procedure, this will be performed on Saturday. Until that time patient will be kept in the hospital and observed. Blood pressure 96/50 with a heart rate of 90, 99% on room air. 12/13/2018 Patient seen and examined this morning, doing well overall. Ambulating in the hallway, hemodynamically stable. Objective - Vital Signs Vital signs: Vital Signs Temp 98.1 F 12/13/18 11:43 Pulse 92 12/13/18 11:43 Resp 14 12/13/18 11:43 BP 109/62 12/13/18 11:43 Pulse Ox 98 12/13/18 11:43 Intake & Output 12/12/18 12/13/18 12/13/18 18:59 06:59 18:59 Intake Total 900 180 Output Total 350 Balance 550 180 Weight 68.36 kg 66.6 kg Intake: Oral 900 180 Output: Urine 350 Other: Voiding Method Toilet Toilet # Voids 1 1 - Exam PHYSICAL EXAMINATION: GENERAL: 83-year-old female in no acute distress at the time of my e xamination HEENT: Head is atraumatic, normocephalic. Pupils equal, round. Sclera anicteric. Conjunctiva are clear. Mucous membranes of the mouth are moist. Neck is supple. There is no elevated jugular venous pressure. No carotid bruit is heard. HEART EXAMINATION: R S1 and S2 irregularly irregular a systolic ejection murmur is heard. CHEST EXAMINATION: Lungs are clear to auscultation and precussion. No chest wall tenderness is noted on palpation or with deep breathing. ABDOMEN: Soft, nontender. Bowel sounds are heard. No organomegaly noted. EXTREMITIES: 2+ peripheral pulses with no evidence of peripheral edema and no calf tenderness noted. NEUROLOGIC patient is awake, alert and oriented 3 . - Labs CBC & Chem 7: 12/09/18 06:32 12/10/18 06:03 Labs: Abnormal Lab Results - Last 24 Hours (Table) 12/12/18 12/12/18 12/13/18 Range/Units 16:44 20:21 11:37 POC Glucose (mg/dL) 180 H 196 H 145 H (75-99) mg/dL Assessment and Plan Plan: Assessment and plan #1 Atrial tachycardia #2 history of paroxysmal atrial fibrillation and atrial tachycardia with prior ablation in August of this year #3 history of coronary artery disease with prior bypass surgery #4 mild to moderate aortic stenosis #5 diabetes #6 hypertension #7 hyperlipidemia #8 history of nicotine dependence Plan From cardiology's perspective, we'll continue current dose of beta stiven as increased by Dr. Mckee. Ablation procedure is scheduled for Saturday, patient will remain in the hospital until that time. DNP note has been reviewed, I agree with a documented findings and plan of care. Patient was seen and examined.
[2018-12-13 17:11] LABS: Glucose,Whole Blood 218 mg/dL (75-99)
[2018-12-13 20:46] LABS: Glucose,Whole Blood 265 mg/dL (75-99)
[2018-12-13] MEDS: LOSARTAN 25 MG TAB PO SCH (20:50)
[2018-12-13] MEDS: ATORVASTATIN 20 MG TAB PO SCH (20:50)
[2018-12-13] MEDS: INSULIN DETEMIR (LEVEMIR) 100 UNIT/ML SYR SQ SCH (20:51)
[2018-12-14 06:22] LABS: Glucose,Whole Blood 138 mg/dL (75-99)
[2018-12-14] MEDS: INSULIN ASPART (NovoLOG) 100 UNIT/ML VIAL SQ SCH ×4 (06:25→21:24)
[2018-12-14] MEDS: APIXABAN 5 MG TAB PO SCH ×2 (08:37→20:07)
[2018-12-14] MEDS: FAMOTIDINE 20 MG TAB PO SCH ×2 (08:37→20:07)
[2018-12-14] MEDS: METOPROLOL SUCCINATE (ER) 25 MG TAB.ER.24H PO SCH ×2 (08:37→20:06)
[2018-12-14] MEDS: VENLAFAXINE HCL ER 150 MG CAP PO SCH (08:37)
[2018-12-14 12:18] LABS: Glucose,Whole Blood 236 mg/dL (75-99)
[2018-12-14] MEDS: SODIUM CHLORIDE 0.9% 1,000 ML IV SCH ×2 (12:18)
--- NOTE | 2018-12-14 16:07 | P.PN ---
Subjective Progress Note Date: 12/14/18 This patient with history of diabetes, hypertension, hyperlipidemia who was admitted with episodes of atrial tachycardia. Patient seemed to be stable. Patient is waiting to have an ablation and tomorrow. Denies any chest pain, shortness of breath, dizziness or syncope. Patient is maintaining sinus rhythm Objective - Vital Signs Vital signs: Vital Signs Temp 97.7 F 12/14/18 12:00 Pulse 98 12/14/18 12:00 Resp 12 12/14/18 12:00 BP 103/55 12/14/18 12:00 Pulse Ox 99 12/14/18 08:00 Intake & Output 12/13/18 12/14/18 12/14/18 18:59 06:59 18:59 Intake Total 1640 1640 Balance 1640 1640 Weight 67.5 kg Intake: Oral 1640 1640 Other: Voiding Method Toilet Toilet # Voids 4 1 2 - Exam GENERAL EXAM: Patient is alert and oriented and doesn't appear to be in any acute distress HEENT: Normocephalic. Normal reaction of pupils, equal size, normal range of extraocular motion. No erythema or exudates in the throat. NECK: No masses, no nuchal rigidity. CHEST: No chest wall deformity. LUNGS: Equal air entry with no crackles or wheeze. HEART: S1 and S2 normal with no audible mumurs or gallops. Regular rhythm, femorals equal on both sides.. ABDOMEN: No hepatosplenomegaly, normal bowel sounds, no guarding or rigidity. SKIN: No rashes CENTRAL NERVOUS SYSTEM: No focal deficits. EXTREMITIES: No cyanosis, clubbing or edema. - Labs CBC & Chem 7: 12/09/18 06:32 12/10/18 06:03 Labs: Abnormal Lab Results - Last 24 Hours (Table) 12/13/18 12/13/18 12/14/18 Range/Units 17:07 20:45 06: POC Glucose (mg/dL) 218 H 265 H 138 H (75-99) mg/dL 12/14/18 Range/Units 12:13 POC Glucose (mg/dL) 236 H (75-99) mg/dL Assessment and Plan (1) Atrial tachycardia Current Visit: Yes Status: Acute Code(s): I47.1 - SUPRAVENTRICULAR TACHYCARDIA SNOMED Code(s): 798233562 (2) Chronic diastolic heart failure Current Visit: No Status: Chronic Code(s): I50.32 - CHRONIC DIASTOLIC (CONGESTIVE) HEART FAILURE SNOMED Code(s): 250960844 (3) Coronary artery disease involving left main coronary artery Current Visit: No Status: Chronic Code(s): I25.10 - ATHSCL HEART DISEASE OF [place] CORONARY ARTERY W/O ANG PCTRS SNOMED Code(s): 740952314 Plan: Patient is critically stable. Waiting to have ablation for atrial tachycardia
[2018-12-14 17:11] LABS: Glucose,Whole Blood 206 mg/dL (75-99)
[2018-12-14] MEDS: LOSARTAN 25 MG TAB PO SCH (20:06)
[2018-12-14] MEDS: ATORVASTATIN 20 MG TAB PO SCH (20:07)
[2018-12-14 20:50] LABS: Glucose,Whole Blood 266 mg/dL (75-99)
[2018-12-14] MEDS: INSULIN DETEMIR (LEVEMIR) 100 UNIT/ML SYR SQ SCH (21:36)
--- NOTE | 2018-12-15 05:51 | PN ---
PROGRESS NOTE DATE OF SERVICE: 12/13/2018 PRESENTING COMPLAINT: Increased heart rate. INTERVAL HISTORY: The patient was seen by me yesterday. The patient is here with atrial tachycardia, heart rate above 100, awaiting EP intervention on Saturday by Dr. Mckee. Otherwise, patient is up in the hallway. REVIEW OF SYSTEMS: Done for constitutional, cardiovascular, GI, pulmonary; relevant findings as above. CURRENT MEDICATIONS: Current medications are reviewed that include Toprol XL 75 mg twice a day. PHYSICAL EXAMINATION: On examination, temperature 98.1, pulse 90, respiration 14, blood pressure 109/62, pulse ox 98% on room air. GENERAL APPEARANCE: Sitting up, awake. EYES: Pupils equal. Conjunctivae normal. NECK: JVD not raised. Mass not palpable. RESPIRATORY: Effort normal. LUNGS: Are clear. CARDIOVASCULAR: First and second sounds normal. No edema. ABDOMEN: Soft, nontender. Liver and spleen not palpable. PSYCHIATRY: Alert and oriented x3. Mood and affect normal. INVESTIGATIONS: Accu-Cheks are noted. ASSESSMENT: 1. Recurrent atrial tachycardia with increased heart rate. 2. Severe mitral regurgitation and moderate tricuspid regurgitation, nonrheumatic. 3. Diabetes mellitus type 2 on oral hypoglycemic. 4. Essential hypertension. 5. Hyperlipidemia. 6. Coronary artery disease, prior history of coronary artery bypass in 2018. 7. Hypertensive heart disease. PLAN: Continue current medication and treatment plan. Await intervention. LISA / MICHELLE: [id number] /
--- NOTE | 2018-12-15 06:03 | PN ---
PROGRESS NOTE DATE OF SERVICE: 12/14/2018 PRESENTING COMPLAINT: Increased heart rate. INTERVAL HISTORY: This patient was seen by me on 12/14/2018. The patient had atrial tachycardia on beta stiven. Awaiting EP study on Saturday by Dr. Mckee. REVIEW OF SYSTEMS: Done for constitutional, cardiovascular, GI, pulmonary; relevant findings as above. No chest pain or shortness of breath. CURRENT MEDICATIONS: Current medications are reviewed that include Toprol XL. PHYSICAL EXAMINATION: On examination, temperature 97.8, pulse 97, respiration 16, blood pressure 106/63, pulse ox 99% on room air. GENERAL APPEARANCE: Sitting up, comfortable. EYES: Pupils equal. Conjunctivae normal. NECK: JVD not raised. Mass not palpable. RESPIRATORY: Effort normal. LUNGS: Are clear. CARDIOVASCULAR: First and second sounds are normal. No edema. ABDOMEN: Soft, nontender. Liver and spleen not palpable. PSYCHIATRY: Alert and oriented x3. Mood and affect normal. INVESTIGATIONS: Accu-Cheks are noted. ASSESSMENT: 1. Recurrent atrial tachycardia, uncontrolled, pending EP study. 2. Severe mitral regurgitation and moderate tricuspid regurgitation, nonrheumatic. 3. Diabetes mellitus type 2 on oral hypoglycemic. 4. Essential hypertension. 5. Hyperlipidemia. 6. Coronary artery disease, prior history of coronary artery bypass in 2018. 7. Hypertensive heart disease. PLAN: Continue current medication and treatment plan. We will check labs in the morning. MMODL / IJN: [id number] /
[2018-12-15 06:17] LABS: Basophils % (A) 0 %; Eosinophils # (A) 0.2 k/uL (0-0.7); Eosinophils % (A) 5 %; HCT 30.8 % (34.0-46.0); HGB 10.4 gm/dL (11.4-16.0); Lymphocytes # (A) 1.4 k/uL (1.0-4.8); Lymphocytes % (A) 31 %; MCH 29.9 pg (25.0-35.0); MCHC 33.6 g/dL (31.0-37.0); Mean Platelet Volume 7.3; Monocytes # (A) 0.4 k/uL (0-1.0); Monocytes % (A) 9 %; Neutrophils # (A) 2.4 k/uL (1.3-7.7); Neutrophils % (A) 53 %; Platelet Count 162 k/uL (150-450); RBC 3.47 m/uL (3.80-5.40); RDW 15.4 % (11.5-15.5); WBC 4.5 k/uL (3.8-10.6)
[2018-12-15 06:24] LABS: Calcium 9.4 mg/dL (8.4-10.2); Magnesium 1.8 mg/dL (1.6-2.3); Potassium 5.2 mmol/L (3.5-5.1)
[2018-12-15] MEDS: SODIUM CHLORIDE 0.9% 1,000 ML IV SCH ×2 (06:28→11:36)
[2018-12-15 06:38] LABS: Glucose,Whole Blood 125 mg/dL (75-99)
[2018-12-15] MEDS: INSULIN ASPART (NovoLOG) 100 UNIT/ML VIAL SQ SCH ×4 (06:38→21:08)
[2018-12-15] MEDS: METOPROLOL SUCCINATE (ER) 25 MG TAB.ER.24H PO SCH (07:27)
[2018-12-15] MEDS: APIXABAN 5 MG TAB PO SCH ×2 (08:08→21:03)
[2018-12-15] MEDS: FAMOTIDINE 20 MG TAB PO SCH ×2 (08:08→21:03)
[2018-12-15] MEDS: VENLAFAXINE HCL ER 150 MG CAP PO SCH (08:08)
[2018-12-15] MEDS ORDERED: HEPARIN SODIUM,PORCINE 5,000 UNIT/ML 1 ML VIAL ONE (10:27)
[2018-12-15] MEDS ORDERED: MIDAZOLAM 2 MG/2 ML VIAL ONE (10:27)
[2018-12-15] MEDS ORDERED: fentaNYL (PF) 50 MCG/ML 2 ML AMP ONE (10:27)
[2018-12-15] MEDS ORDERED: PROPOFOL 10 MG/ML 20 ML VIAL IV ONE (10:27)
[2018-12-15] MEDS ORDERED: ISOPROTERENOL 250 MCG/1.25 ML SYR IV ONE (10:27)
[2018-12-15] MEDS ORDERED: PHENYLEPHRINE-0.9% NACL SYG 1 MG/10 ML SYRINGE ONE (10:27)
[2018-12-15] MEDS ORDERED: LIDOCAINE 1% INJ 10MG/ML (20 ML MDV) ONE ×2 (10:47→11:19)
[2018-12-15] MEDS ORDERED: LACTATED RINGERS 1,000 ML IV ONE (10:50)
[2018-12-15] MEDS ORDERED: IOPAMIDOL-250 50ML BTL IV ONE (11:04)
[2018-12-15] MEDS ORDERED: HEPARIN SODIUM 1,000 UN/ML (10ML VL) ONE (11:06)
[2018-12-15] MEDS ORDERED: LIDOCAINE 1% INJ 10MG/ML (20 ML MDV) SQ ONE (11:07)
[2018-12-15] MEDS ORDERED: HEPARIN SOD,PORK IN 0.45% NACL 25,000 UNIT in 0.45% NACL 1 250ML.BAG IV ONE (11:12)
[2018-12-15] MEDS ORDERED: HEPARIN SODIUM (1,000 UNIT/ML) 1,000 UNIT in SODIUM CHLORIDE 0.9% 1,000 ML IRRIGATION ONE (11:35)
[2018-12-15] MEDS ORDERED: ACETAMINOPHEN TAB 325 MG TAB PO PRN ×2 (14:42→14:43)
[2018-12-15] MEDS ORDERED: HYDROcodone/APAP 5-325MG 1 EACH TAB PO PRN (14:43)
[2018-12-15] MEDS ORDERED: ACETAMINOPHEN IV (For NPO) 1,000 MG in EMPTY BAG 1 BAG IVPB ONE (14:43)
[2018-12-15 16:51] LABS: Glucose,Whole Blood 87 mg/dL (75-99)
[2018-12-15 17:06] VITALS: RESP 16
--- NOTE | 2018-12-15 17:16 | CE ---
CARDIAC ELECTROPHYSIOLOGY REPORT This is a 73-year-old female who presented to the hospital with supraventricular tachycardia with a very rapid ventricular response that was difficult to rate control. She was quite symptomatic with shortness of breath. She has had an atrial fibrillation ablation as well as multiple atrial tachycardia ablations and she was brought in for an EP study, mapping and ablation of this tachycardia. Patient was brought to the EP lab in a fasting state. Written informed consent was obtained prior to the procedure. The patient was in the tachycardia at the start of the study and since it was refractory to treatment. The patient was in the tachycardia and the tachycardia cycle length was 311 milliseconds. Upright P-waves in V1. QRS 69, HV 56. Later when she had successful ablation was performed, she was in sinus cycle length 907 milliseconds. CO interval 184 milliseconds and QT interval 384 millisecond. Venous sheath was placed in the left axillary vein and via this a decapolar catheter was positioned in the coronary sinus for coronary sinus pacing and recording. Next the venous sheaths were placed in the right and left femoral veins and via these diagnostic mapping ablation catheters were placed. A PentaRay was placed. Intracardiac echo catheter was placed. Three-D electroanatomic mapping was performed in the right atrium and a detailed map of the right atrium was performed. The earliest activation was noted at the SVC RA junction posterior septally with good unipolar electrograms and fractionated signal, close to the Kami terminalis. Thereafter, the left atrium was mapped after intracardiac echocardiography and transseptal catheterization. Interatrial septum was thick. A transseptal wire was used to cross over and sheath was placed in the left atrium. 3D electronic mapping was performed and the left atrium was late as compared in activation. The left atrial activation map was late compared to the right atrial map. The coronary sinus activation was concentric. Therefore, the catheter was withdrawn back into the right atrium and then an ablation catheter was placed. This was an irrigated-tip catheter. Detailed mapping was performed at the earliest site and in areas around it. Excellent unipolar signals were obtained, sharp deep negative with early bipolar electrograms. RF energy was applied at the site of earliest activation. However, despite good power of 25-30 kirkpatrick and good contact force between 10-20 grams, RF ablation was not immediately successful. However, proceeding a little superiorly above the area that was early site resulted in immediate termination of the tachycardia. These 2 sites were then connected and a short RF line was made from the base of the SVC to the Kami terminalis in its upper portion. RF ablation was then performed around the site of successful termination and the earliest site. Non capture at high output was proven. Thereafter, Isuprel was started at high dose and then at 2 mcg. Burst stimulation was performed. No SVT was induced. Full EP study was performed on Isuprel. SVT could not be induced. Isuprel was stopped and a full EP study was performed. Sinus node recovery time at 500 milliseconds was 85 milliseconds. Slow pathway conduction at 350 milliseconds. AV node Wenckebach block at 300 milliseconds, VA Wenckebach block at 320 milliseconds. No evidence for AV kofi reentry. No other atrial tachycardia was induced. Atrial extra stimulation from the high right atrium was performed after double extra stimuli. No SVT was induced. Right atrial extra stimulation was performed. The retrograde conduction was midline and decremental. No SVT was induced. Intracardiac echo at the end of the procedure did not reveal any pericardial effusion. All catheters were then removed. The patient was transferred back to telemetry. PLAN: Reduce dose of metoprolol succinate 25 mg p.o. daily and continue Eliquis. Continue all other cardiac medications. Patient may go home tomorrow if she is hemodynamically stable and groins have healed well. RESULTS: Successful ablation of atrial tachycardia just below the SVC posterior septal at the site of the SVC RA junction. Detailed phrenic nerve stimulation was performed. The phrenic nerve was tagged and there was no phrenic nerve stimulation noted at the planned ablation sites. At the end of the procedure, the phrenic nerve was once again tested and phrenic nerve stimulation resulted in strong diaphragmatic stimulation and diaphragmatic contractions. MMODL / IJN: [id number] /
--- NOTE | 2018-12-15 19:26 | P.PN ---
Progress Note - Text Successful ablation of an atrial tachycardia originating just below the SVC posteroseptally, at the SVC right atrium junction Successful ablation in termination of the tachycardia Noninducible thereafter Plan Reduce metoprolol to 25 mg by mouth daily, succinate Continue ELIQUIS Likely discharge tomorrow in follow-up with Dr. Leigh within one week
[2018-12-15] MEDS: ATORVASTATIN 20 MG TAB PO SCH (21:03)
[2018-12-15] MEDS: INSULIN DETEMIR (LEVEMIR) 100 UNIT/ML SYR SQ SCH (21:05)
[2018-12-15 21:08] LABS: Glucose,Whole Blood 243 mg/dL (75-99)
[2018-12-15] MEDS: LOSARTAN 25 MG TAB PO SCH (22:25)
[2018-12-16] MEDS: INSULIN ASPART (NovoLOG) 100 UNIT/ML VIAL SQ SCH ×3 (06:29→14:37)
[2018-12-16 06:30] LABS: Glucose,Whole Blood 91 mg/dL (75-99)
[2018-12-16] MEDS: SODIUM CHLORIDE 0.9% 1,000 ML IV SCH (06:52)
[2018-12-16 08:18] LABS: Calcium 9.1 mg/dL (8.4-10.2)
[2018-12-16 08:23] LABS: Potassium 5.5 mmol/L (3.5-5.1)
[2018-12-16] MEDS: VENLAFAXINE HCL ER 150 MG CAP PO SCH (08:40)
[2018-12-16] MEDS: FAMOTIDINE 20 MG TAB PO SCH (08:40)
[2018-12-16] MEDS: APIXABAN 5 MG TAB PO SCH (08:40)
[2018-12-16] MEDS ORDERED: METOPROLOL SUCCINATE (ER) 25 MG TAB.ER.24H PO SCH (09:00)
[2018-12-16 11:48] LABS: Hemoglobin A1C 6.9 % (4.0-6.0)
[2018-12-16 12:26] LABS: Glucose,Whole Blood 279 mg/dL (75-99)
[2018-12-16 14:00] VITALS: BP 109/78; PULSE 66; TEMP 98
[2018-12-16 14:14] LABS: Glucose,Whole Blood 229 mg/dL (75-99)
[2018-12-17] MEDS ORDERED: FAMOTIDINE 20 MG TAB PO SCH (09:00)
== END 2018-12-16 14:58 | disposition home or self-care (01) | DRG 274 ==
LOC: EC 21:19 → 3SCARD 23:54
PROVIDERS: ADMIT Hospitalist; ATTEND Hospitalist
PROC: 02K83ZZ Map Conduction Mechanism, Percutaneous Approach (ICD-10-PCS; principal; 2018-12-15 10:27)
PROC: 02583ZZ Destruction of Conduction Mechanism, Percutaneous Approach (ICD-10-PCS; 2018-12-15 10:27)
PROC: 02K83ZZ Map Conduction Mechanism, Percutaneous Approach (ICD-10-PCS; 2018-12-15 10:27)
DX: I47.1 Supraventricular tachycardia (principal); I50.32 Chronic diastolic (congestive) heart failure; D72.829 Elevated white blood cell count, unspecified; E11.9 Type 2 diabetes mellitus without complications; E78.5 Hyperlipidemia, unspecified; E83.42 Hypomagnesemia; I08.3 Combined rheumatic disorders of mitral, aortic and tricuspid valves; I11.0 Hypertensive heart disease with heart failure; I25.10 Atherosclerotic heart disease of native coronary artery without angina pectoris; I44.0 Atrioventricular block, first degree; I48.0 Paroxysmal atrial fibrillation; Z79.01 Long term (current) use of anticoagulants; Z79.4 Long term (current) use of insulin; Z79.899 Other long term (current) drug therapy; Z80.1 Family history of malignant neoplasm of trachea, bronchus and lung; Z85.3 Personal history of malignant neoplasm of breast; Z86.73 Personal history of transient ischemic attack (TIA), and cerebral infarction without residual deficits; Z87.891 Personal history of nicotine dependence; Z95.1 Presence of aortocoronary bypass graft; Z83.2 Family history of diseases of the blood and blood-forming organs and certain disorders involving the immune mechanism; F32.9 Major depressive disorder, single episode, unspecified; Z92.3 Personal history of irradiation
CPT/HCPCS: 36415; 71046; 80048; 80053; 82306; 83036; 83735; 83880; 84443; 84484; 85025; 85610; 85730; 93005; 93613; 93623; 93653; 93662; 94760; 96361; 96374; 99285

== ENCOUNTER 2020-06-06 09:32 | Inpatient (IN) | payer MEDICARE, BC ==
--- NOTE | 2020-06-06 10:20 | ED ---
General Adult HPI - General Chief complaint: Arrhythmia/Palpitations Stated complaint: fast heart rate Time Seen by Provider: 06/06/20 09:49 Source: patient, RN/MD (I did speak with Dr. Leigh), RN notes reviewed, old records reviewed (EKG from office shows narrow complex tachycardia with a rate of 176.) Mode of arrival: ambulatory Limitations: no limitations - History of Present Illness Initial comments: Patient is a pleasant 75-year-old female presenting to the emergency Department with complaints of palpitations. Onset of symptoms was around 6 days ago. Patient feels her heart racing. Patient does have some associated exertional dyspnea. Patient does have history of previous atrial fibrillation here patient did see her balance weigher today and was advised to come to emergency department. Dr. Leigh was concern for SVT and thought patient would likely need adenosine or electrical cardioversion. Patient denies chest pain. - Related Data Home Medications Medication Instructions Recorded Confirmed Losartan Potassium [Cozaar] 25 mg PO HS 03/31/18 06/06/20 metFORMIN HCL [Glucophage] 1,000 mg PO BID 05/19/18 06/06/20 Rosuvastatin [Crestor] 10 mg PO HS 12/06/18 06/06/20 Slow-Mag 71.5mg 71.5 mg PO BID 12/06/18 06/06/20 Venlafaxine HCl ER [Effexor XR] 150 mg PO DAILY 12/06/18 06/06/20 Insulin Detemir [Levemir Flextouch] 20 unit SQ HS 06/06/20 06/06/20 Previous Rx's Medication Instructions Recorded Apixaban [Eliquis] 5 mg PO BID #60 tab 04/03/18 Metoprolol Succinate [Toprol XL] 25 mg PO DAILY #0 12/16/18 Allergies Allergy/AdvReac Type Severity Reaction Status Date / Time Sulfa (Sulfonamide Allergy Rash/Hives Verified 06/06/20 10:32 Antibiotics) sulfamethoxazole Allergy Rash/Hives Verified 06/06/20 10:32 [From Bactrim] trimethoprim [From Bactrim] Allergy Rash/Hives Verified 06/06/20 10:32 Review of Systems ROS Statement: Those systems with pertinent positive or pertinent negative responses have been documented in the HPI. ROS Other: All systems not noted in ROS Statement are negative. Constitutional: Denies: fever Eyes: Denies: eye pain ENT: Denies: ear pain Respiratory: Reports: dyspnea (With exertion) Cardiovascular: Reports: palpitations. Denies: chest pain Endocrine: Reports: fatigue Gastrointestinal: Denies: abdominal pain Genitourinary: Denies: dysuria Musculoskeletal: Denies: back pain Skin: Denies: rash Neurological: Denies: weakness Past Medical History Past Medical History: Cancer, CVA/TIA, Diabetes Mellitus, Hyperlipidemia, Hypertension, Respiratory Disorder Additional Past Medical History / Comment(s): See Dr Mckee's H&P. Hx breast cancer in 2005 with lumpectomy and radiation. BILATERAL PLEURAL EFFUSIONS. TIA November 01 History of Any Multi-Drug Resistant Organisms: None Reported Past Surgical History: Breast Surgery, Coronary Bypass/CABG, Hernia Repair, Orthopedic Surgery, Tubal Ligation Additional Past Surgical History / Comment(s): Surgery for broken arm, CABG X 2, ZELAYA to the LAD, SVG to the OM. POSSIBLE BILATERAL THORACENTESIS. Ablation, EPS, cardioversion., Past Anesthesia/Blood Transfusion Reactions: No Reported Reaction Past Psychological History: Depression Past Alcohol Use History: Rare Past Drug Use History: None Reported - Past Family History Sister(s) Family Medical History: Cancer, Pulmonary Embolus Additional Family Medical History / Comment(s): Lung cancer. General Exam Limitations: no limitations General appearance: alert, in no apparent distress Head exam: Present: normocephalic Eye exam: Present: normal appearance Neck exam: Present: normal inspection Respiratory exam: Present: normal lung sounds bilaterally Cardiovascular Exam: Present: tachycardia, irregular rhythm Expanded Peripheral pulses: 2+: Radial (R), Radial (L), Dorsalis Pedis (R), Dorsalis Pedis (L) GI/Abdominal exam: Present: soft. Absent: tenderness Extremities exam: Present: normal inspection. Absent: pedal edema, calf tenderness Neurological exam: Present: alert Psychiatric exam: Present: normal affect, normal mood Skin exam: Present: normal color Course Vital Signs 06/06/20 06/06/20 06/06/20 09:43 10:00 10:40 Temperature 97.8 F Pulse Rate 179 H 137 H 141 H Respiratory 18 22 24 Rate Blood Pressure 118/89 126/98 O2 Sat by Pulse 98 93 L 94 L Oximetry - Reevaluation(s) Reevaluation #1: 06/06/20 10:39 Case was again discussed with Dr. Leigh who does agree with Cardizem and would like patient medically admitted with cardiology consult. 06/06/20 10:58 Case also discussed with Dr. Moore, who will admit covering for Dr. Doe. Patient reevaluated and updated. EKG Findings - EKG Comments: EKG Findings:: A. fib with RVR, rate 139. QRS 70. QT 344. QTC 523. Normal axis. Normal QRS. Nonspecific ST-T. Medical Decision Making - Lab Data Result diagrams: 06/06/20 10:24 06/06/20 10:24 Lab Results 06/06/20 06/06/20 Range/Units 10:24 10:24 WBC 6.9 (3.8-10.6) k/uL RBC 3.57 L (3.80-5.40) m/uL Hgb 11.1 L (11.4-16.0) gm/dL Hct 35.1 (34.0-46.0) % MCV 98.4 (80.0-100.0) fL MCH 31.1 (25.0-35.0) pg MCHC 31.6 (31.0-37.0) g/dL RDW 15.6 H (11.5-15.5) % Plt Count 277 (150-450) k/uL MPV 7.8 Neutrophils % 76 % Lymphocytes % 14 % Monocytes % 7 % Eosinophils % 2 % Basophils % 0 % Neutrophils # 5.2 (1.3-7.7) k/uL Lymphocytes # 0.9 L (1.0-4.8) k/uL Monocytes # 0.5 (0-1.0) k/uL Eosinophils # 0.1 (0-0.7) k/uL Basophils # 0.0 (0-0.2) k/uL Hypochromasia Moderate Poikilocytosis Slight Macrocytosis Slight Sodium 140 (137-145) mmol/L Potassium 5.5 H (3.5-5.1) mmol/L Chloride 110 H (98-107) mmol/L Carbon Dioxide 22 (22-30) mmol/L Anion Gap 8 mmol/L BUN 38 H (7-17) mg/dL Creatinine 1.20 H (0.52-1.04) mg/dL Est GFR (CKD-EPI)AfAm 51 (>60 ml/min/1.73 sqM) Est GFR (CKD-EPI)NonAf 44 (>60 ml/min/1.73 sqM) Glucose 149 H (74-99) mg/dL Calcium 9.6 (8.4-10.2) mg/dL Magnesium 1.7 (1.6-2.3) mg/dL Total Bilirubin 1.2 (0.2-1.3) mg/dL AST 43 H (14-36) U/L ALT 40 H (4-34) U/L Alkaline Phosphatase 85 (38-126) U/L Total Protein 7.0 (6.3-8.2) g/dL Albumin 4.3 (3.5-5.0) g/dL Critical Care Time Critical Care Time: Yes Total Critical Care Time: 32 Disposition Clinical Impression: Atrial fibrillation with RVR Disposition: ADMITTED IP TO THIS HOSP Is patient prescribed a controlled substance at d/c from ED?: No Referrals: Pranav Doe MD [Primary Care Provider] - 1-2 days Decision Time: 10:40
[2020-06-06] MEDS: DILTIAZEM 125 MG in SODIUM CHLORIDE 0.9% 100 ML IV SCH (10:26)
[2020-06-06] MEDS ORDERED: NALOXONE 0.4 MG/ML 1 ML VIAL IV PRN (10:40)
[2020-06-06 10:49] LABS: Albumin 4.3 g/dL (3.5-5.0); Basophils % (A) 0 %; Calcium 9.6 mg/dL (8.4-10.2); Eosinophils # (A) 0.1 k/uL (0-0.7); Eosinophils % (A) 2 %; HCT 35.1 % (34.0-46.0); HGB 11.1 gm/dL (11.4-16.0); Hypochromasia Moderate; Lymphocytes # (A) 0.9 k/uL (1.0-4.8); Lymphocytes % (A) 14 %; MCH 31.1 pg (25.0-35.0); MCHC 31.6 g/dL (31.0-37.0); MCV 98.4 fL (80.0-100.0); Macrocytosis Slight; Magnesium 1.7 mg/dL (1.6-2.3); Mean Platelet Volume 7.8; Monocytes # (A) 0.5 k/uL (0-1.0); Monocytes % (A) 7 %; Neutrophils # (A) 5.2 k/uL (1.3-7.7); Neutrophils % (A) 76 %; Platelet Count 277 k/uL (150-450); Poikilocytosis Slight; Potassium 5.5 mmol/L (3.5-5.1); RBC 3.57 m/uL (3.80-5.40); RDW 15.6 % (11.5-15.5); Total Bilirubin 1.2 mg/dL (0.2-1.3); WBC 6.9 k/uL (3.8-10.6)
--- NOTE | 2020-06-06 10:56 | XR ---
EXAMINATION TYPE: XR chest 2V DATE OF EXAM: 06/06/2020 COMPARISON: 12/06/2018 INDICATION: Dysrhythmia, history of breast cancer TECHNIQUE: Frontal and lateral views of the chest are obtained. FINDINGS: The heart size is mildly prominent. The pulmonary vasculature is normal. Small bilateral pleural effusions are present. There may be some minimal adjacent compressive atelect asis.. IMPRESSION: 1. Small bilateral pleural effusions with minimal adjacent compressive atelectasis. 2. Mild cardiomegaly.
[2020-06-06] MEDS ORDERED: SODIUM CHLORIDE 0.9% 500 ML 500 ML IV STA (10:58)
[2020-06-06 10:59] LABS: INR 1.3 (<1.2); Partial Thromboplastin Time 25.7 sec (22.0-30.0); Prothrombin Time 12.8 sec (9.0-12.0)
[2020-06-06] MEDS: SODIUM CHLORIDE 0.9% 1,000 ML IV SCH (11:42)
[2020-06-06] MEDS: MAGNESIUM OXIDE 400 MG TAB PO SCH (12:14)
[2020-06-06] MEDS: metFORMIN 500 MG TAB PO SCH (18:19)
--- NOTE | 2020-06-06 18:42 | CONS ---
CONSULTATION DATE OF CONSULTATION: 06/06/2020 HISTORY OF PRESENT ILLNESS: Mrs. Pricila Acuña is a 75-year-old lady with a known history of type 2 diabetes, hypertension, hyperlipidemia, CAD. She underwent aortocoronary bypass surgery that was performed in February of 2018. Following the surgery, she had recurrent episodes of SVT, atrial flutter and atrial fibrillation which was persistent. She had ablation of an atrial flutter, atrial fib, as well as an SVT ablation. The last was an SVT ablation that was performed in December of 2018. She presented to the office for her office visit complaining of tachycardia, palpitations, dizziness and lightheadedness, near syncope, but no actual passing out. She was in a rapid rate of about 170 beats per minute. The rate appeared to be regular. I did a carotid sinus massage and then it became somewhat irregular. The initial rhythm was probably a flutter or an SVT and then she went into what seems like a fibrillation. I sent her to the emergency room and talked to the emergency room doctor and also communicated with Dr. Wang. I am recommending if the rhythm is regular in the ER to try adenosine. Otherwise, consider intravenous Cardizem for rate control. Patient is already on Eliquis. She has CAD, prior bypass surgery, hypertension and diabetes. PAST MEDICAL HISTORY: 1. CAD with prior bypass surgery in February 2018. 2. Diabetes mellitus type 2. 3. Hypertension. 4. Hyperlipidemia. 5. History of atrial flutter with previous ablation. 6. Paroxysmal atrial fibrillation status post atrial fibrillation ablation. 7. She also had an SVT with ablation. MEDICATIONS: At home include Eliquis 5 mg b.i.d., Crestor 10 mg daily. She takes Levemir insulin at night and also Humalog with meals. She takes losartan 25 mg daily, metformin 500 mg 2 tablets b.i.d., metoprolol succinate 25 mg daily and Slow-Mag as well. ALLERGIES: She is allergic to SULFA and BACTRIM. PHYSICAL EXAMINATION: VITAL SIGNS: On examination, blood pressure is 124/80, pulse rate is 164 per minute and regular. HEENT: Unremarkable. Fundus was not examined by me. NECK: Supple. Cannot appreciate JVD. No carotid bruit. HEART: Exam reveals tachycardia with a short systolic murmur. LUNGS: Bilateral decent air entry. ABDOMEN: Soft. EXTREMITIES: Lower extremities reveal diminished pulses. CENTRAL NERVOUS SYSTEM: Grossly no focal deficits. IMPRESSION: 1. Atrial flutter/supraventricular tachycardia with a rapid rate of 170. 2. History of persistent atrial fibrillation, status post atrial fibrillation ablation, which was a pulmonary vein isolation procedure. 3. Coronary artery disease with prior bypass surgery. 4. Type 2 diabetes. 5. Hyperlipidemia. 6. Hypertension. RECOMMENDATIONS: I am recommending that she should go to the emergency room and I spoke to the ER physician and also Dr. Wang. The patient will be hospitalized and further intervention based on findings. I sent a copy of the EKG with her. MMODL / IJN: [id number] /
[2020-06-06] MEDS ORDERED: SODIUM POLYSTYRENE SULFONATE 15 GM/60 ML BOTTLE PO STA (19:53)
[2020-06-06] MEDS ORDERED: LOSARTAN 25 MG TAB PO SCH (21:00)
--- NOTE | 2020-06-06 21:27 | P.HPIM ---
History of Present Illness H&P Date: 06/06/20 Chief Complaint: palpitation history of presenting complaint: This is a pleasant 75-year-old patient of Dr. Pranav Doe. Also follows with bioinformatics associate Dr. Bao Mckee. Has a history of atrial fibrillation, flutter, atrial tachycardia did undergo ablation in August 2018. Chronic stable medical conditions include coronary artery disease with bypass in 2018, depression, diabetes, hypertension, hyperlipidemia, breast cancer. Patient for 2 days, has been having palpitations some shortness of breath. Very slight dizziness. She went to her review nurse's office today so Dr. Leigh. Was found to have a heart rate around 170s. It appeared to be regular. She was given a candidate sinus massage and then it became irregular. Exact rhythm was unclear it was possible fibrillation. Sent down to the ER. Review of systems: GEN.: Tired EYES: None HEENT: None NECK: None RESPIRATORY: As above CARDIOVASCULAR: As above GASTROINTESTINAL: None GENITOURINARY: None MUSCULOSKELETAL: None LYMPHATICS: None HEMATOLOGICAL: None PSYCHIATRY: None NEUROLOGICAL: None Past medical history to include: Coronary artery disease with bypass in February 2018, diabetes mellitus type 2, hypertension, hyperlipidemia, atrial flutter fibrillation with ablation and August 2018, SVT with ablation, breast cancer 2006 with lumpectomy and radiation, TIA Social history: Lives alone. No smoking. Alcohol rarely. Physical examination: VITAL SIGNS: 97.8, 179, 18, 118/89, 98% on room air-in the ER GENERAL: BMI 27.5, slightly anxious. EYES: Pupils equal. Conjunctiva normal. HEENT: External appearance of nose and ears normal, oral cavity grossly normal. NECK: JVD not raised; masses not palpable. HEART: Heart sounds irregular; no edema. LUNGS: Respiratory rate normal; clear to auscultation. ABDOMEN: Soft, nontender, liver spleen not palpable, no masses palpable. PSYCH: Alert and oriented x3; mood and affect normal. NEUROLOGICAL: Cranial nerves grossly intact; no facial asymmetry, power and sensation grossly intact. LYMPHATICS: No lymph nodes palpable in the axilla and neck INVESTIGATIONS, reviewed in the clinical context: White count 6.9 hemoglobin 11.1 platelets 277 potassium 5.5 BUN 38 creatinine 1.20 Troponin I 3 negative TSH 0.592 EKG tracing personally reviewed by me-atrial fibrillation/flutter with a rate of 139 Chest x-ray film personally reviewed by me-cardiomegaly with possible fluid in the fissure Previous testing: In January 2019 BUN 27 creatinine 0.91 Assessment: -New onset of atrial flutter fibrillation with a rapid ventricular rate in a patient with known prior history of ablation for the same, uncontrolled symptomatic -History of recurrent atrial tachycardia -Severe mitral and moderate tricuspid regurgitation -Diabetes mellitus type 2 and oral hypoglycemic -Essential hypertension -Hyperlipidemia -Coronary artery disease prior history of coronary bypass in 2018 Plan: Patient's home medications resumed. Patient is chronically on eliquis. Was put on a Cardizem drip. Cardiology and and Dr. Bao Mckee admitting consulted. Care was discussed with the patient questions answered. Patient's been on telemetry. Will need an echocardiogram if not one done recently. Past Medical History Past Medical History: Cancer, CVA/TIA, Diabetes Mellitus, Hyperlipidemia, Hypertension, Respiratory Disorder Additional Past Medical History / Comment(s): See Dr Mckee's H&P. Hx breast cancer in 2005 with lumpectomy and radiation. BILATERAL PLEURAL EFFUSIONS. TIA November 01 History of Any Multi-Drug Resistant Organisms: None Reported Past Surgical History: Breast Surgery, Coronary Bypass/CABG, Hernia Repair, Orthopedic Surgery, Tubal Ligation Additional Past Surgical History / Comment(s): Surgery for broken arm, CABG X 2, ZELAYA to the LAD, SVG to the OM. POSSIBLE BILATERAL THORACENTESIS. Ablation, EPS, cardioversion., Past Anesthesia/Blood Transfusion Reactions: No Reported Reaction Past Psychological History: Depression Past Alcohol Use History: Rare Past Drug Use History: None Reported - Past Family History Sister(s) Family Medical History: Cancer, Pulmonary Embolus Additional Family Medical History / Comment(s): Lung cancer. Medications and Allergies Home Medications Medication Instructions Recorded Confirmed Type Losartan Potassium [Cozaar] 25 mg PO HS 03/31/18 06/06/20 History Apixaban [Eliquis] 5 mg PO BID #60 tab 04/03/18 06/06/20 Rx metFORMIN HCL [Glucophage] 1,000 mg PO BID 05/19/18 06/06/20 History Rosuvastatin [Crestor] 10 mg PO HS 12/06/18 06/06/20 History Slow-Mag 71.5mg 71.5 mg PO BID 12/06/18 06/06/20 History Venlafaxine HCl ER [Effexor XR] 150 mg PO DAILY 12/06/18 06/06/20 History Metoprolol Succinate [Toprol XL] 25 mg PO DAILY #0 12/16/18 06/06/20 Rx Insulin Detemir [Levemir Flextouch] 20 unit SQ HS 06/06/20 06/06/20 History Allergies Allergy/AdvReac Type Severity Reaction Status Date / Time Sulfa (Sulfonamide Allergy Rash/Hives Verified 06/06/20 10:32 Antibiotics) sulfamethoxazole Allergy Rash/Hives Verified 06/06/20 10:32 [From Bactrim] trimethoprim [From Bactrim] Allergy Rash/Hives Verified 06/06/20 10:32 Physical Exam Vitals: Vital Signs Temp Pulse Pulse Resp BP Pulse Ox 06/06/20 20:50 118 H 18 160/74 97 06/06/20 19:25 115 H 06/06/20 19:22 98 F 116 H 16 149/84 93 L 06/06/20 19:03 97.8 F 112 H 16 125/69 93 L 06/06/20 16:00 111 H 25 H 101/68 95 06/06/20 15:02 98.1 F 06/06/20 14:00 114 H 24 111/62 95 06/06/20 13:00 115 H 15 111/62 94 L 06/06/20 12:00 116 H 18 106/82 96 06/06/20 11:20 133 H 21 123/73 96 06/06/20 10:40 141 H 24 126/98 94 L 06/06/20 10:00 137 H 22 93 L 06/06/20 09:43 97.8 F 179 H 18 118/89 98 Intake and Output 06/06/20 06/06/20 06/06/20 06:59 14:59 22:59 Other: Weight 72.575 kg Results CBC & Chem 7: 06/06/20 10:24 06/06/20 10:24 Labs: Abnormal Lab Results - Last 24 Hours (Table) 06/06/20 06/06/20 06/06/20 Range/Units 10:24 10:24 10:24 RBC 3.57 L (3.80-5.40) m/uL Hgb 11.1 L (11.4-16.0) gm/dL RDW 15.6 H (11.5-15.5) % Lymphocytes # 0.9 L (1.0-4.8) k/uL PT 12.8 H (9.0-12.0) sec INR 1.3 H (<1.2) Potassium 5.5 H (3.5-5.1) mmol/L Chloride 110 H (98-107) mmol/L BUN 38 H (7-17) mg/dL Creatinine 1.20 H (0.52-1.04) mg/dL Glucose 149 H (74-99) mg/dL AST 43 H (14-36) U/L ALT 40 H (4-34) U/L
[2020-06-06 21:49] LABS: Glucose,Whole Blood 177 mg/dL (75-99)
[2020-06-06] MEDS: APIXABAN 5 MG TAB PO SCH (23:00)
[2020-06-06] MEDS: ATORVASTATIN 20 MG TAB PO SCH (23:00)
[2020-06-06] MEDS: INSULIN DETEMIR (LEVEMIR) 100 UNIT/ML SYR SQ SCH (23:01)
[2020-06-06] MEDS: INSULIN ASPART (NovoLOG) 100 UNIT/ML VIAL SQ SCH (23:01)
[2020-06-07 06:17] LABS: Glucose,Whole Blood 104 mg/dL (75-99)
[2020-06-07] MEDS ORDERED: DILTIAZEM DRIP BOLUS FROM BAG 1 MG SOLN IV ONE (06:24)
[2020-06-07] MEDS: DILTIAZEM 125 MG in SODIUM CHLORIDE 0.9% 100 ML IV SCH ×4 (06:50→21:33)
[2020-06-07] MEDS: INSULIN ASPART (NovoLOG) 100 UNIT/ML VIAL SQ SCH ×4 (06:58→21:33)
[2020-06-07] MEDS: metFORMIN 500 MG TAB PO SCH ×2 (06:58→17:39)
[2020-06-07] MEDS ORDERED: METOPROLOL SUCCINATE (ER) 25 MG TAB.ER.24H PO SCH (09:00)
[2020-06-07 09:08] LABS: Calcium 8.7 mg/dL (8.4-10.2); Potassium 4.6 mmol/L (3.5-5.1)
[2020-06-07] MEDS: APIXABAN 5 MG TAB PO SCH ×2 (09:31→20:53)
[2020-06-07] MEDS: MAGNESIUM OXIDE 400 MG TAB PO SCH (09:31)
[2020-06-07] MEDS ORDERED: METOPROLOL SUCCINATE (ER) 25 MG TAB.ER.24H PO ONE (12:49)
--- NOTE | 2020-06-07 12:53 | P.PN ---
Subjective This is a pleasant 75-year-old female past medical history significant for paroxysmal atrial fibrillation status post ablation, hypertension, dyslipidemia, coronary artery disease status post bypass grafting, a SVTT status post ablation and diabetes mellitus. She follows in the office with Dr. Leigh. She is seen and examined resting comfortably sitting up in bed in no acute distress. She does complain of feeling ongoing palpitations and exertional shortness of breath. EKG revealed atrial tachycardia with Wenckebach phenomenon. Blood pressure 141/87 heart rate 141 afebrile maintaining oxygen saturation on nasal cannula. Laboratory data revealed sodium 139, potassium 4.6, creatinine 0.94. Currently maintained on Eliquis 5 mg twice a day, atorvastatin 20 mg at that time, Toprol 25 mg daily and Cardizem infusion. GENERAL: Well-appearing, well-nourished and in no acute distress. NECK: Supple without JVD or thyromegaly. LUNGS: Breath sounds clear to auscultation bilaterally. Respiration equal and unlabored. No wheezes, rales or rhonchi. HEART: Irregular rate and rhythm with systolic ejection murmur at the base, no rubs or gallops. S1 and S2 heard. EXTREMITIES: Normal range of motion, no edema. No clubbing or cyanosis. Peripheral pulses intact. ASSESSMENT Atrial tachycardia Chronic persistent atrial fibrillation s/p ablation SVT s/p ablation Coronary artery disease s/p bypass grafting Diabetes mellitus Hypertension Dyslipidemia PLAN Increase Toprol to 50 mg daily, give additional dose of 25 mg now. Continue Cardizem infusion. We will ask Dr. Mckee to evaluate her EKG for possible repeat ablation. Nurse Practitioner note has been reviewed, I agree with a documented findings and plan of care. Patient was seen and examined. Objective - Vital Signs Vital signs: Vital Signs Temp 97.5 F L 06/07/20 08:00 Pulse 141 H 06/07/20 08:00 Resp 22 06/07/20 08:00 BP 141/87 06/07/20 08:00 Pulse Ox 91 L 06/07/20 08:00 Intake & Output 06/06/20 06/07/20 06/07/20 18:59 06:59 18:59 Weight 72.575 kg 76.4 kg Other: Voiding Method Toilet # Voids 1 0 # Bowel Movements 1 - Labs CBC & Chem 7: 06/06/20 10:24 06/07/20 07:51 Labs: Abnormal Lab Results - Last 24 Hours (Table) 06/06/20 06/06/20 06/07/20 Range/Units 10:24 21:48 06:15 PT 12.8 H (9.0-12.0) sec INR 1.3 H (<1.2) Chloride (98-107) mmol/L BUN (7-17) mg/dL POC Glucose (mg/dL) 177 H 104 H (75-99) mg/dL 06/07/20 Range/Units 07:51 PT (9.0-12.0) sec INR (<1.2) Chloride 110 H (98-107) mmol/L BUN 30 H (7-17) mg/dL POC Glucose (mg/dL) (75-99) mg/dL
[2020-06-07] MEDS: SODIUM CHLORIDE 0.9% 1,000 ML IV SCH (12:54)
[2020-06-07] MEDS: VENLAFAXINE HCL ER 150 MG CAP PO SCH (12:58)
--- NOTE | 2020-06-07 20:18 | P.EPCON ---
Electrophysiology Consult - EP Consult Electrophysiology Consult: This is Dr. Mckee dictating a consult on this patient The patient was interviewed and examined IMPRESSION / ASSESSMENT: Patient presented with an atrial tachycardia with RVR. This atrial tachycardia hasn't upright atrial electrogram in lead V1 and biphasic in inferior leads and biphasic in V2 Likely left atrial tachycardia post A. fib ablation Patient has had atrial flutter ablation performed, cryoablation of the pulmonary veins and linear ablation involving the roof of the LAD and the mitral isthmus PLAN: Agree with increasing beta blockers. I will increase the dose of metoprolol to 75 mg by mouth daily starting tomorrow and stop IV diltiazem tomorrow morning Discussed with the nurse Continue anticoagulation Will schedule for an mapping and ablation Patient should be rate controlled at this point. Avoid cardioversion Continue ELIQUIS Discussed with the patient During this ablation we will place a Julio C sinus catheter from the left subclavian vein clot within the right femoral vein for stability of the CS As noted in the previous ablation catheter position was very unstable coronary sinus placed via the femoral vein HPI Patient presented with shortness of breath and tiredness and fatigue She was found to be an atrial tachycardia with RVR and was sent for to the hospital Errantly she is on metoprolol 50 g daily and IV diltiazem 5 mg/h rates are in the 80s. She is an underlying atrial tachycardia She has a history of A. fib and is undergone an atrial flutter ablation, cryoablation the pulmonary veins as well as linear ablation in the left atrium involving the roof and the mitral isthmus She also has had an atrial tachycardia in the right atrium successfully ablated last year at that time no other arrhythmias were inducible following that ablation ROS: No fever chills or rigors, no cough, phlegm or expectoration, no nausea, vomiting or diarrhea, no hematuria, dysuria, no musculoskeletal complaints, no strokes or seizures, no skin lesions. EXAMINATION: Breath sounds are clear no rhonchi no crackles Heart sounds are irregular heart rates are in the 80s to 90s She is afebrile 98.1F Blood pressure 124/76. His mercury Abdomen soft Extremity is warm REVIEW OF LABS, ECG & MEDICAL DATA Prior ablations reviewed Hemoglobin 11.1, elevated potassium upon admission but normal today BUN and creatinine are normal at the end 0.94 Troponins normal Borderline low TSH of 0.59
[2020-06-07] MEDS: ATORVASTATIN 20 MG TAB PO SCH (20:52)
[2020-06-07 21:29] LABS: Glucose,Whole Blood 182 mg/dL (75-99)
[2020-06-07] MEDS: INSULIN DETEMIR (LEVEMIR) 100 UNIT/ML SYR SQ SCH (21:33)
--- NOTE | 2020-06-07 23:07 | P.PN ---
Progress Note - Text Progress Note Date: 06/07/20 Chief Complaint: palpitation history of presenting complaint: This is a pleasant 75-year-old patient of Dr. Pranav Doe. Also follows with applied researcher Dr. Bao Mckee. Has a history of atrial fibrillation, flutter, atrial tachycardia did undergo ablation in August 2018. Chronic stable medical conditions include coronary artery disease with bypass in 2018, depression, diabetes, hypertension, hyperlipidemia, breast cancer. Patient for 2 days, has been having palpitations some shortness of breath. Very slight dizziness. She went to her material assistant's office today so Dr. Leigh. Was found to have a heart rate around 170s. It appeared to be regular. She was given a carotid sinus massage and then it became irregular. Admitted with the diagnosis of atrial tachycardia with a rapid ventricular rate. On beta stiven and IV Cardizem. Today-laying in bed. Some palpitation. Heart rate uncontrolled. Review of systems: Was done for constitutional, cardiovascular, GI, pulmonary. relevant finding as above Active Medications Apixaban (Apixaban 5 Mg Tab) 5 mg PO BID [facility] Last Admin: 06/07/20 20:53 Dose: 5 mg Documented by: Atorvastatin Calcium (Atorvastatin 20 Mg Tab) 20 mg PO [facility] Last Admin: 06/07/20 20:52 Dose: 20 mg Documented by: Diltiazem HCl 125 mg/ Sodium (Chloride) 125 mls @ 5 mls/hr IV .Q24H [facility] Last Admin: 06/07/20 10:40 Dose: Not Given Documented by: Sodium Chloride (Saline 0.9%) 1,000 mls @ 20 mls/hr IV .Q24H [facility] Last Admin: 06/07/20 12:54 Dose: Not Given Documented by: Diltiazem HCl 125 mg/ Sodium (Chloride) 125 mls @ 15 mls/hr IV .Q8H20M [facility] Last Admin: 06/07/20 21:33 Dose: 15 mg/hr, 15 mls/hr Documented by: Insulin Aspart (Insulin Aspart (Novolog) 100 Unit/Ml Vial) 0 unit SQ [facility]; Protocol Last Admin: 06/07/20 21:33 Dose: 2 unit Documented by: Insulin Detemir (Insulin Detemir (Levemir) 100 Unit/Ml Syr) 20 unit SQ [facility] Last Admin: 06/07/20 21:33 Dose: 20 unit Documented by: Magnesium Oxide (Magnesium Oxide 400 Mg Tab) 400 mg PO DAILY [facility] Last Admin: 06/07/20 09:31 Dose: 400 mg Documented by: Metformin HCl (Metformin 500 Mg Tab) 1,000 mg PO BID-W/MEALS [facility] Last Admin: 06/07/20 17:39 Dose: 1,000 mg Documented by: Metoprolol Succinate (Metoprolol Succinate (Er) 25 Mg Tab.Er.24h) 75 mg PO DAILY [facility] Naloxone HCl (Naloxone 0.4 Mg/Ml 1 Ml Vial) 0.2 mg IV Q2M PRN PRN Reason: Opioid Reversal Venlafaxine HCl (Venlafaxine Hcl Er 150 Mg Cap) 150 mg PO DAILY [facility] Last Admin: 06/07/20 12:58 Dose: 150 mg Documented by: Physical examination: VITAL SIGNS: 98.1, 141, 22, 141/87, 91% on 2 L GENERAL: BMI 27.5, slightly anxious. EYES: Pupils equal. Conjunctiva normal. NECK: JVD not raised; masses not palpable. HEART: Heart sounds irregular; no edema. LUNGS: Respiratory rate normal; clear to auscultation. ABDOMEN: Soft, nontender, liver spleen not palpable, no masses palpable. PSYCH: Alert and oriented x3; mood and affect normal. INVESTIGATIONS, reviewed in the clinical context: White count 6.9 hemoglobin 11.1 platelets 277 potassium 5.5 BUN 38 creatinine 1.20 Troponin I 3 negative TSH 0.592 EKG tracing personally reviewed by me-atrial fibrillation/flutter with a rate of 139 Chest x-ray film personally reviewed by me-cardiomegaly with possible fluid in the fissure Previous testing: In January 2019 BUN 27 creatinine 0.91 Assessment: -Atrial tachycardia with a rapid ventricular rate. -History of atrial fibrillation flutter with ablation -Severe mitral and moderate tricuspid regurgitation -Diabetes mellitus type 2 and oral hypoglycemic -Essential hypertension -Hyperlipidemia -Coronary artery disease prior history of coronary bypass in 2018 Plan: Patient was earlier seen by Dr. Bao Mckee from EP service. Plan is 4 ablation tomorrow. Continue with beta stiven and Cardizem. Patient to remain on eliquis.
[2020-06-08 05:55] LABS: Glucose,Whole Blood 92 mg/dL (75-99)
[2020-06-08] MEDS: INSULIN ASPART (NovoLOG) 100 UNIT/ML VIAL SQ SCH ×3 (06:00→21:25)
[2020-06-08] MEDS: MAGNESIUM OXIDE 400 MG TAB PO SCH (08:21)
[2020-06-08] MEDS: APIXABAN 5 MG TAB PO SCH ×2 (08:21→20:47)
[2020-06-08] MEDS: DILTIAZEM 125 MG in SODIUM CHLORIDE 0.9% 100 ML IV SCH ×2 (08:22→18:42)
[2020-06-08] MEDS: metFORMIN 500 MG TAB PO SCH ×2 (08:22→17:36)
[2020-06-08] MEDS: VENLAFAXINE HCL ER 150 MG CAP PO SCH (08:22)
[2020-06-08] MEDS: METOPROLOL SUCCINATE (ER) 25 MG TAB.ER.24H PO SCH (08:22)
[2020-06-08] MEDS ORDERED: METOPROLOL SUCCINATE (ER) 50 MG TAB.ER.24H PO SCH (09:00)
[2020-06-08 11:38] LABS: Glucose,Whole Blood 89 mg/dL (75-99)
--- NOTE | 2020-06-08 12:47 | P.PN ---
Subjective This is a pleasant 75-year-old female past medical history significant for paroxysmal atrial fibrillation status post ablation, hypertension, dyslipidemia, coronary artery disease status post bypass grafting, a SVTT status post ablation and diabetes mellitus. She follows in the office with Dr. Leigh. She is seen and examined resting comfortably sitting up in bed in no acute distress. She does complain of feeling ongoing palpitations and exertional shortness of breath. EKG revealed atrial tachycardia with Wenckebach phenomenon. Blood pressure 141/87 heart rate 141 afebrile maintaining oxygen saturation on nasal cannula. Laboratory data revealed sodium 139, potassium 4.6, creatinine 0.94. Currently maintained on Eliquis 5 mg twice a day, atorvastatin 20 mg at that time, Toprol 25 mg daily and Cardizem infusion. 06/08/2020 Pt is seen and examined sitting up in bed in no acute distress. She states her breathing is improved and she no longer feels short of breath with exertion. Palpitations have also subsided. She was seen by Dr. Mckee last night and he plans for rate control and ablation. Telemetry tracings indicate possible transition to sinus mechanism. Blood pressure 117/72 heart rate 86 afebrile and maintaining oxygen saturation on nasal cannula. Currently maintained on eliquis 5 mg BID, atorvastatin 20 mg daily and toprol 75 mg daily. GENERAL: Well-appearing, well-nourished and in no acute distress. NECK: Supple without JVD or thyromegaly. LUNGS: Breath sounds clear to auscultation bilaterally. Respiration equal and unlabored. No wheezes, rales or rhonchi. HEART: Irregular rate and rhythm with systolic ejection murmur at the base, no rubs or gallops. S1 and S2 heard. EXTREMITIES: Normal range of motion, no edema. No clubbing or cyanosis. Peripheral pulses intact. ASSESSMENT Atrial tachycardia Chronic persistent atrial fibrillation s/p ablation SVT s/p ablation Coronary artery disease s/p bypass grafting Diabetes mellitus Hypertension Dyslipidemia PLAN Continue with rate control. Dr. Mckee will set up for an outpatient ablation. Nurse Practitioner note has been reviewed, I agree with a documented findings and plan of care. Patient was seen and examined. Objective - Vital Signs Vital signs: Vital Signs Temp 97.5 F L 06/08/20 03:09 Pulse 86 06/08/20 03:09 Resp 17 06/08/20 03:09 BP 117/72 06/08/20 03:09 Pulse Ox 95 06/08/20 03:09 Intake & Output 06/07/20 06/08/20 06/08/20 18:59 06:59 18:59 Intake Total 492.5 305 Balance 492.5 305 Weight 76.9 kg Intake: Intake, IV Titration 372.5 125 Amount Diltiazem 125 mg In 212.5 125 Sodium Chloride 0.9% 100 ml @ 15 MG/HR 15 mls/hr IV .Q8H20M [facility] Rx#: [id number] Sodium Chloride 0.9% 1, 160 000 ml @ 20 mls/hr IV . Q24H [facility] Rx#:[id number] Oral 120 180 Other: Voiding Method Toilet Toilet # Voids 0 1 - Labs CBC & Chem 7: 06/06/20 10:24 06/07/20 07:51 Labs: Abnormal Lab Results - Last 24 Hours (Table) 06/07/20 Range/Units 21:26 POC Glucose (mg/dL) 182 H (75-99) mg/dL
[2020-06-08 16:43] LABS: Glucose,Whole Blood 96 mg/dL (75-99)
[2020-06-08] MEDS: SODIUM CHLORIDE 0.9% 1,000 ML IV SCH (17:32)
--- NOTE | 2020-06-08 20:14 | P.PN ---
Progress Note - Text Progress Note Date: 06/08/20 Chief Complaint: palpitation history of presenting complaint: This is a pleasant 75-year-old patient of Dr. Pranav Doe. Also follows with clay roaster Dr. Bao Mckee. Has a history of atrial fibrillation, flutter, atrial tachycardia did undergo ablation in August 2018. Chronic stable medical conditions include coronary artery disease with bypass in 2018, depression, diabetes, hypertension, hyperlipidemia, breast cancer. Patient for 2 days, has been having palpitations some shortness of breath. Very slight dizziness. She went to her automobile glass technician's office today so Dr. Leigh. Was found to have a heart rate around 170s. It appeared to be regular. She was given a carotid sinus massage and then it became irregular. Admitted with the diagnosis of atrial tachycardia with a rapid ventricular rate. On beta stiven and IV Cardizem. Today-laying in bed. Continues to feel palpitations. Very slightly short of breath. Review of systems: Was done for constitutional, cardiovascular, GI, pulmonary. relevant finding as above Active Medications Apixaban (Apixaban 5 Mg Tab) 5 mg PO BID [facility] Last Admin: 06/08/20 08:21 Dose: 5 mg Documented by: Atorvastatin Calcium (Atorvastatin 20 Mg Tab) 20 mg PO [facility] Last Admin: 06/07/20 20:52 Dose: 20 mg Documented by: Sodium Chloride (Saline 0.9%) 1,000 mls @ 20 mls/hr IV .Q24H [facility] Last Admin: 06/08/20 17:32 Dose: Not Given Documented by: Insulin Aspart (Insulin Aspart (Novolog) 100 Unit/Ml Vial) 0 unit SQ [facility]; Protocol Last Admin: 06/08/20 17:33 Dose: Not Given Documented by: Insulin Detemir (Insulin Detemir (Levemir) 100 Unit/Ml Syr) 20 unit SQ [facility] Last Admin: 06/07/20 21:33 Dose: 20 unit Documented by: Magnesium Oxide (Magnesium Oxide 400 Mg Tab) 400 mg PO DAILY [facility] Last Admin: 06/08/20 08:21 Dose: 400 mg Documented by: Metformin HCl (Metformin 500 Mg Tab) 1,000 mg PO BID-W/MEALS [facility] Last Admin: 06/08/20 17:36 Dose: 1,000 mg Documented by: Metoprolol Succinate (Metoprolol Succinate (Er) 25 Mg Tab.Er.24h) 75 mg PO D AILY [facility] Last Admin: 06/08/20 08:22 Dose: 75 mg Documented by: Naloxone HCl (Naloxone 0.4 Mg/Ml 1 Ml Vial) 0.2 mg IV Q2M PRN PRN Reason: Opioid Reversal Venlafaxine HCl (Venlafaxine Hcl Er 150 Mg Cap) 150 mg PO DAILY [facility] Last Admin: 06/08/20 08:22 Dose: 150 mg Documented by: Physical examination: VITAL SIGNS: 97.1, 88, 18, 120/78, 95% on 2 L GENERAL: BMI 27.5, slightly anxious. EYES: Pupils equal. Conjunctiva normal. NECK: JVD not raised; masses not palpable. HEART: Heart sounds regular; no edema. LUNGS: Respiratory rate normal; clear to auscultation. ABDOMEN: Soft, nontender, liver spleen not palpable, no masses palpable. PSYCH: Alert and oriented x3; mood and affect normal. INVESTIGATIONS, reviewed in the clinical context: White count 6.9 hemoglobin 11.1 platelets 277 potassium 5.5 BUN 38 creatinine 1.20 Troponin I 3 negative TSH 0.592 EKG tracing personally reviewed by me-atrial fibrillation/flutter with a rate of 139 Chest x-ray film personally reviewed by me-cardiomegaly with possible fluid in the fissure Previous testing: In January 2019 BUN 27 creatinine 0.91 Assessment: -Atrial tachycardia with a rapid ventricular rate.-Not better controlled -History of atrial fibrillation flutter with ablation -Severe mitral and moderate tricuspid regurgitation -Diabetes mellitus type 2 and oral hypoglycemic -Essential hypertension -Hyperlipidemia -Coronary artery disease prior history of coronary bypass in 2018 Plan: Patient is currently on Toprol-XL and taken of the Cardizem drip. Plan this was patient have ablation as an outpatient. DC home when okay with Dr. Schuler.
[2020-06-08] MEDS ORDERED: FUROSEMIDE 10 MG/ML 4 ML VIAL IV STA (20:36)
[2020-06-08] MEDS ORDERED: METOPROLOL TARTRATE 25 MG TAB PO STA (20:36)
[2020-06-08] MEDS: ATORVASTATIN 20 MG TAB PO SCH (20:47)
[2020-06-08 20:55] LABS: Glucose,Whole Blood 175 mg/dL (75-99)
[2020-06-08] MEDS: INSULIN DETEMIR (LEVEMIR) 100 UNIT/ML SYR SQ SCH (21:25)
[2020-06-09 05:37] LABS: Glucose,Whole Blood 142 mg/dL (75-99)
[2020-06-09] MEDS: INSULIN ASPART (NovoLOG) 100 UNIT/ML VIAL SQ SCH ×4 (05:45→21:17)
[2020-06-09] MEDS: metFORMIN 500 MG TAB PO SCH ×2 (06:19→17:22)
[2020-06-09] MEDS: SODIUM CHLORIDE 0.9% 1,000 ML IV SCH ×2 (08:43→20:24)
[2020-06-09] MEDS: VENLAFAXINE HCL ER 150 MG CAP PO SCH (08:43)
[2020-06-09] MEDS: APIXABAN 5 MG TAB PO SCH ×2 (08:43→20:31)
[2020-06-09] MEDS: METOPROLOL SUCCINATE (ER) 25 MG TAB.ER.24H PO SCH (08:43)
[2020-06-09] MEDS: MAGNESIUM OXIDE 400 MG TAB PO SCH (08:43)
--- NOTE | 2020-06-09 09:02 | XR ---
EXAMINATION TYPE: XR chest 1V DATE OF EXAM: 06/09/2020 CLINICAL HISTORY: Difficulty breathing and hypoxia progress study. TECHNIQUE: Single AP portable upright view of the chest is obtained. COMPARISON: Chest x-ray from 3 days earlier FINDINGS: Overlying EKG leads. Overlying sternal wire is redemonstrated. Stable mild cardiomegaly wi th persistent bilateral pleural effusions, effusion stable or slightly larger in size. Associated bib asilar compressive atelectasis. Osseous structures are demineralized . Upper Lungs are clear without pneumothorax. IMPRESSION: Correlate for continued CHF exacerbation as there is cardiomegaly with small bilateral pl eural effusions, stable or slightly larger versus most recent x-ray.
--- NOTE | 2020-06-09 10:48 | ECHOF ---
Referral Reason:sob MEASUREMENTS -------- HEIGHT: 162.6 cm WEIGHT: 75.7 kg BP: RVIDd: 3.2 cm (< 3.3) IVSd: 1.3 cm (0.6 - 1.1) LVIDd: 3.8 cm (3.9 - 5.3) LVPWd: 1.5 cm (0.6 - 1.1) IVSs: 1.5 cm LVIDs: 3.0 cm LVPWs: 1.6 cm LA Diam: 5.6 cm (2.7 - 3.8) LAESV Index (A-L): 41.90 ml/m MV EXCURSION: 13.883 mm (> 18.000) MV EF SLOPE: 78 mm/s (70 - 150) EPSS: 0.3 cm AV maxP.48 mmHg AV maxP.48 mmHg AV meanP.01 mmHg RAP: 15.00 mmHg RVSP: 58.14 mmHg FINDINGS -------- Atrial fibrillation. This was a technically adequate study. The left ventricular size is normal. There is mild concentric left ventricular hypertrophy. There is mild global hypokinesis of LV . Overall left ventricular systolic function is mildly impaired w ith, an EF between 45 - 50 %. The right ventricle is normal in size. LA is severely dilated >40 ml/m2 The right atrial size is normal. There is mild aortic valve sclerosis. There is mild aortic regurgitation. There is mild aortic st enosis present. Peak/mean gradient across the Aortic Valve is 23.48mmHg / 14.01mmHg. The mitral valve leaflets are mildly thickened. Mild mitral annular calcification present. Modera [id number]-yfcier mitral regurgitation is present. Severe tricuspid regurgitation present. There is moderate pulmonary hypertension. Trace/mild (physiologic) pulmonic regurgitation. The aortic root size is normal. There is no pericardial effusion. CONCLUSIONS -------- 1. Atrial fibrillation. 2. There is mild concentric left ventricular hypertrophy. 3. There is mild global hypokinesis of LV . 4. Overall left ventricular systolic function is mildly impaired with, an EF between 45 - 50 %. 5. LA is severely dilated >40 ml/m2 6. There is mild aortic regurgitation. 7. There is mild aortic stenosis present. 8. Peak/mean gradient across the Aortic Valve is 23.48mmHg / 14.01mmHg. 9. The mitral valve leaflets are mildly thickened. 10. [id number] mitral regurgitation is present. 11. Severe tricuspid regurgitation present. 12. There is moderate pulmonary hypertension. 13. Trace/mild (physiologic) pulmonic regurgitation. 14. There is no pericardial effusion. RADIOLOGY TECHNICIAN: Brandy Regalado RDCS
[2020-06-09 11:30] LABS: Glucose,Whole Blood 170 mg/dL (75-99)
[2020-06-09 11:45] LABS: Calcium 8.8 mg/dL (8.4-10.2); Potassium 4.8 mmol/L (3.5-5.1)
--- NOTE | 2020-06-09 12:07 | P.PN ---
Subjective This is a pleasant 75-year-old female past medical history significant for paroxysmal atrial fibrillation status post ablation, hypertension, dyslipidemia, coronary artery disease status post bypass grafting, a SVTT status post ablation and diabetes mellitus. She follows in the office with Dr. Leigh. She is seen and examined resting comfortably sitting up in bed in no acute distress. She does complain of feeling ongoing palpitations and exertional shortness of breath. EKG revealed atrial tachycardia with Wenckebach phenomenon. Blood pressure 141/87 heart rate 141 afebrile maintaining oxygen saturation on nasal cannula. Laboratory data revealed sodium 139, potassium 4.6, creatinine 0.94. Currently maintained on Eliquis 5 mg twice a day, atorvastatin 20 mg at that time, Toprol 25 mg daily and Cardizem infusion. 06/08/2020 Pt is seen and examined sitting up in bed in no acute distress. She states her breathing is improved and she no longer feels short of breath with exertion. Palpitations have also subsided. She was seen by Dr. Mckee last night and he plans for rate control and ablation. Telemetry tracings indicate possible transition to sinus mechanism. Blood pressure 117/72 heart rate 86 afebrile and maintaining oxygen saturation on nasal cannula. Currently maintained on eliquis 5 mg BID, atorvastatin 20 mg daily and toprol 75 mg daily. 06/09/2020 Pt is seen and examined sitting up in bed in no acute distress. She states last night she started feeling short of breath and noticed swelling in her legs and feet. She also felt like her face was tight. She was also having some hypoxia on room air. Heart rates were again elevated with an atrial tachycardia with 2:1 conduction. Rates in the 150's. She was given an additional dose of Toprol and IV lasix. This morning she is feeling much better. Heart rates continue to be elevated. Repeat chest x-ray reveals CHF exacerbation with small bilateral pleural effusions slightly larger than previous. Laboratory data reviewed, sodium 137, potassium 4.8, creatinine 0.89 and NTproBNP 4570. GENERAL: Well-appearing, well-nourished and in no acute distress. NECK: Supple without JVD or thyromegaly. LUNGS: Bibasilar rales, no wheezes or rhonchi. Respiration equal and unlabored. HEART: Irregular rate and rhythm with systolic ejection murmur at the base, no rubs or gallops. S1 and S2 heard. EXTREMITIES: Normal range of motion, 1+ bilateral lower extremity edema. No clubbing or cyanosis. Peripheral pulses intact. ASSESSMENT Atrial tachycardia Acute diastolic heart failure Chronic persistent atrial fibrillation s/p ablation SVT s/p ablation Coronary artery disease s/p bypass grafting Diabetes mellitus Hypertension Dyslipidemia Aortic stenosis PLAN Continue with rate control with toprol. Obtain 2D echocardiogram and doppler study to assess cardiac structure and function. Add oral lasix and aldactone. Ablation will be done on Saturday morning with Dr. Mckee. Continue anti- coagulation with no interruptions. Nurse Practitioner note has been reviewed, I agree with a documented findings and plan of care. Patient was seen and examined. Objective - Vital Signs Vital signs: Vital Signs Temp 98.6 F 06/09/20 08:34 Pulse 141 H 06/09/20 08:34 Resp 16 06/09/20 08:34 BP 123/76 06/09/20 08:34 Pulse Ox 98 06/09/20 08:34 Intake & Output 06/08/20 06/09/20 06/09/20 18:59 06:59 18:59 Intake Total 720 490 Output Total 1150 Balance 720 -1150 490 Weight 76.1 kg Intake: IV 10 Invasive Line 1 10 Oral 720 480 Output: Urine 1150 Other: Voiding Method Toilet Toilet # Voids 2 - Labs CBC & Chem 7: 06/06/20 10:24 06/09/20 10:12 Labs: Abnormal Lab Results - Last 24 Hours (Table) 06/08/20 06/09/20 06/09/20 Range/Units 20:54 05:36 10:12 BUN 21 H (7-17) mg/dL Glucose 190 H (74-99) mg/dL POC Glucose (mg/dL) 175 H 142 H (75-99) mg/dL 06/09/20 Range/Units 11:29 BUN (7-17) mg/dL Glucose (74-99) mg/dL POC Glucose (mg/dL) 170 H (75-99) mg/dL
[2020-06-09] MEDS: SPIRONOLACTONE 25 MG TAB PO SCH (12:21)
[2020-06-09] MEDS: FUROSEMIDE 40 MG TAB PO SCH (12:22)
[2020-06-09] MEDS: LOSARTAN 25 MG TAB PO SCH (12:22)
[2020-06-09] MEDS: DILTIAZEM ORAL 30 MG TAB PO SCH ×2 (13:14→20:31)
[2020-06-09 16:35] LABS: Glucose,Whole Blood 170 mg/dL (75-99)
[2020-06-09] MEDS: ATORVASTATIN 20 MG TAB PO SCH (20:31)
--- NOTE | 2020-06-09 20:36 | P.PN ---
Progress Note - Text Progress Note Date: 06/09/20 Chief Complaint: palpitation history of presenting complaint: This is a pleasant 75-year-old patient of Dr. Pranav Doe. Also follows with foot caster Dr. Bao Mckee. Has a history of atrial fibrillation, flutter, atrial tachycardia did undergo ablation in August 2018. Chronic stable medical conditions include coronary artery disease with bypass in 2018, depression, diabetes, hypertension, hyperlipidemia, breast cancer. Patient for 2 days, has been having palpitations some shortness of breath. Very slight dizziness. She went to her department head [employer]'s office today so Dr. Leigh. Was found to have a heart rate around 170s. It appeared to be regular. She was given a carotid sinus massage and then it became irregular. Admitted with the diagnosis of atrial tachycardia with a rapid ventricular rate. On beta stiven and IV Cardizem. Today-Continues with some shortness of breath and palpitation.. Started on by mouth Lasix. Review of systems: Was done for constitutional, cardiovascular, GI, pulmonary. relevant finding as above Active Medications Apixaban (Apixaban 5 Mg Tab) 5 mg PO BID [facility] Last Admin: 06/09/20 20:31 Dose: 5 mg Documented by: Atorvastatin Calcium (Atorvastatin 20 Mg Tab) 20 mg PO HS [facility] Last Admin: 06/09/20 20:31 Dose: 20 mg Documented by: Diltiazem HCl (Diltiazem Oral 30 Mg Tab) 30 mg PO TID [facility] Last Admin: 06/09/20 20:31 Dose: 30 mg Documented by: Furosemide (Furosemide 40 Mg Tab) 40 mg PO DAILY [facility] Last Admin: 06/09/20 12:22 Dose: 40 mg Documented by: Sodium Chloride (Saline 0.9%) 1,000 mls @ 20 mls/hr IV .Q24H [facility] Last Admin: 06/09/20 08:43 Dose: 20 mls/hr Documented by: Sodium Chloride (Saline 0.9%) 1,000 mls @ 20 mls/hr IV .Q24H [facility] Last Admin: 06/09/20 20:24 Dose: Not Given Documented by: Insulin Aspart (Insulin Aspart (Novolog) 100 Unit/Ml Vial) 0 unit SQ ACHS [facility]; Protocol Last Admin: 06/09/20 17:22 Dose: 2 unit Documented by: Insulin Detemir (Insulin Detemir (Levemir) 100 Unit/Ml Syr) 20 unit SQ HS [facility] Last Admin: 06/08/20 21:25 Dose: 20 unit Documented by: Losartan Potassium (Losartan 25 Mg Tab) 25 mg PO DAILY [facility] Last Admin: 06/09/20 12:22 Dose: 25 mg Documented by: Magnesium Oxide (Magnesium Oxide 400 Mg Tab) 400 mg PO DAILY [facility] Last Admin: 06/09/20 08:43 Dose: 400 mg Documented by: Metformin HCl (Metformin 500 Mg Tab) 1,000 mg PO BID-W/MEALS [facility] Last Admin: 06/09/20 17:22 Dose: 1,000 mg Documented by: Metoprolol Succinate (Metoprolol Succinate (Er) 25 Mg Tab.Er.24h) 75 mg PO DAILY [facility] Last Admin: 06/09/20 08:43 Dose: 75 mg Documented by: Naloxone HCl (Naloxone 0.4 Mg/Ml 1 Ml Vial) 0.2 mg IV Q2M PRN PRN Reason: Opioid Reversal Spironolactone (Spironolactone 25 Mg Tab) 12.5 mg PO DAILY [facility] Last Admin: 06/09/20 12:21 Dose: 12.5 mg Documented by: Venlafaxine HCl (Venlafaxine Hcl Er 150 Mg Cap) 150 mg PO DAILY [facility] Last Admin: 06/09/20 08:43 Dose: 150 mg Documented by: Physical examination: VITAL SIGNS: 98.2, 120, 14, 120/76, 99% on 2 L GENERAL: BMI 27.5, slightly anxious. EYES: Pupils equal. Conjunctiva normal. NECK: JVD not raised; masses not palpable. HEART: Heart sounds regular; no edema. LUNGS: Respiratory rate increased; clear to auscultation. ABDOMEN: Soft, nontender, liver spleen not palpable, no masses palpable. PSYCH: Alert and oriented x3; mood and affect normal. INVESTIGATIONS, reviewed in the clinical context: June 09: Check stat x-ray film personally reviewed by me shows bilateral pleural effusion 2-D echocardiogram-EF 45-50%. Moderate to severe mitral regurgitation, severe tricuspid regurgitation, moderate pulmonary hypertension White count 6.9 hemoglobin 11.1 platelets 277 potassium 5.5 BUN 38 creatinine 1.20 Troponin I 3 negative TSH 0.592 EKG tracing personally reviewed by me-atrial fibrillation/flutter with a rate of 139 Chest x-ray film personally reviewed by me-cardiomegaly with possible fluid in the fissure Previous testing: In January 2019 BUN 27 creatinine 0.91 Assessment: -Atrial tachycardia with a rapid ventricular rate.-Not better controlled -History of atrial fibrillation flutter with ablation -Severe mitral and moderate tricuspid regurgitation -Secondary pulmonary hypertension -Diabetes mellitus type 2 and oral hypoglycemic -Essential hypertension -Hyperlipidemia -Coronary artery disease prior history of coronary bypass in 2018 -Acute congestive heart failure exacerbation from systolic and diastolic d ysfunction EF 45-50%. Started on Lasix Plan: Patient is currently on Toprol-XL and by mouth Cardizem.. Started on by mouth Lasix. Plan is for ablation on Saturday.
[2020-06-09 20:40] LABS: Glucose,Whole Blood 175 mg/dL (75-99)
[2020-06-09] MEDS: INSULIN DETEMIR (LEVEMIR) 100 UNIT/ML SYR SQ SCH (21:18)
[2020-06-10] MEDS: INSULIN ASPART (NovoLOG) 100 UNIT/ML VIAL SQ SCH ×4 (05:57→21:13)
[2020-06-10 05:59] LABS: Glucose,Whole Blood 84 mg/dL (75-99)
[2020-06-10] MEDS: metFORMIN 500 MG TAB PO SCH ×2 (06:01→17:27)
[2020-06-10] MEDS: DILTIAZEM ORAL 30 MG TAB PO SCH ×2 (06:02→15:18)
[2020-06-10] MEDS: MAGNESIUM OXIDE 400 MG TAB PO SCH (08:31)
[2020-06-10] MEDS: LOSARTAN 25 MG TAB PO SCH (08:31)
[2020-06-10] MEDS: FUROSEMIDE 40 MG TAB PO SCH (08:32)
[2020-06-10] MEDS: SPIRONOLACTONE 25 MG TAB PO SCH (08:32)
[2020-06-10] MEDS: METOPROLOL SUCCINATE (ER) 25 MG TAB.ER.24H PO SCH (08:32)
[2020-06-10] MEDS: VENLAFAXINE HCL ER 150 MG CAP PO SCH (08:32)
[2020-06-10] MEDS: SODIUM CHLORIDE 0.9% 1,000 ML IV SCH ×2 (08:32→08:58)
[2020-06-10] MEDS: APIXABAN 5 MG TAB PO SCH ×2 (08:32→21:13)
[2020-06-10 11:07] LABS: Calcium 8.9 mg/dL (8.4-10.2); Potassium 4.5 mmol/L (3.5-5.1)
[2020-06-10 11:49] LABS: Glucose,Whole Blood 96 mg/dL (75-99)
--- NOTE | 2020-06-10 12:57 | P.PN ---
Subjective This is a pleasant 75-year-old female past medical history significant for paroxysmal atrial fibrillation status post ablation, hypertension, dyslipidemia, coronary artery disease status post bypass grafting, a SVTT status post ablation and diabetes mellitus. She follows in the office with Dr. Leigh. She is seen and examined resting comfortably sitting up in bed in no acute distress. She does complain of feeling ongoing palpitations and exertional shortness of breath. EKG revealed atrial tachycardia with Wenckebach phenomenon. Blood pressure 141/87 heart rate 141 afebrile maintaining oxygen saturation on nasal cannula. Laboratory data revealed sodium 139, potassium 4.6, creatinine 0.94. Currently maintained on Eliquis 5 mg twice a day, atorvastatin 20 mg at that time, Toprol 25 mg daily and Cardizem infusion. 06/10/2020 Pt is seen and examined sitting up in bed in no acute distress. She states she can still feel intermittent palpitations and very mild shortness of breath with exertion. Lower extremity edema is improved. Yesterday afternoon her heart rates were uncontrolled on toprol, oral cardizem was added. Blood pressure 120/82 heart rate 112 afebrile maintaining oxygen saturation on nasal cannula. GENERAL: Well-appearing, well-nourished and in no acute distress. NECK: Supple without JVD or thyromegaly. LUNGS: Bibasilar rales, no wheezes or rhonchi. Respiration equal and unlabored. HEART: Irregular rate and rhythm with systolic ejection murmur at the base, no rubs or gallops. S1 and S2 heard. EXTREMITIES: Normal range of motion, 1+ bilateral lower extremity edema. No clubbing or cyanosis. Peripheral pulses intact. ASSESSMENT Atrial tachycardia Acute diastolic heart failure Chronic persistent atrial fibrillation s/p ablation SVT s/p ablation Coronary artery disease s/p bypass grafting Diabetes mellitus Hypertension Dyslipidemia Aortic stenosis PLAN Continue current medical regimen. NPO after midnight Saturday. Ablation will be done on Saturday with Dr. Mckee. Continue anti-coagulation with no interruptions. Nurse Practitioner note has been reviewed, I agree with a documented findings and plan of care. Patient was seen and examined. Objective - Vital Signs Vital signs: Vital Signs Temp 97.5 F L 06/10/20 07:38 Pulse 112 H 06/10/20 07:38 Resp 16 06/10/20 07:38 BP 128/82 06/10/20 07:38 Pulse Ox 92 L 06/10/20 03:19 Intake & Output 06/09/20 06/10/20 06/10/20 18:59 06:59 18:59 Intake Total 970 310 Output Total 2 1750 Balance 968 -1750 310 Weight 74.3 kg Intake: IV 10 10 Invasive Line 1 10 Invasive Line 2 10 Oral 960 300 Output: Urine 2 1750 - Labs CBC & Chem 7: 06/06/20 10:24 06/10/20 09:51 Labs: Abnormal Lab Results - Last 24 Hours (Table) 06/09/20 06/09/20 06/09/20 Range/Units 10:12 11:29 16:33 BUN 21 H (7-17) mg/dL Glucose 190 H (74-99) mg/dL POC Glucose (mg/dL) 170 H 170 H (75-99) mg/dL 06/09/20 Range/Units 20:38 BUN (7-17) mg/dL Glucose (74-99) mg/dL POC Glucose (mg/dL) 175 H (75-99) mg/dL
[2020-06-10 16:55] LABS: Glucose,Whole Blood 146 mg/dL (75-99)
[2020-06-10] MEDS: DILTIAZEM 125 MG in SODIUM CHLORIDE 0.9% 100 ML IV SCH (18:14)
[2020-06-10 21:08] LABS: Glucose,Whole Blood 218 mg/dL (75-99)
[2020-06-10] MEDS: ATORVASTATIN 20 MG TAB PO SCH (21:13)
[2020-06-10] MEDS: INSULIN DETEMIR (LEVEMIR) 100 UNIT/ML SYR SQ SCH (21:14)
--- NOTE | 2020-06-10 22:16 | P.PN ---
Progress Note - Text Progress Note Date: 06/10/20 Chief Complaint: palpitation history of presenting complaint: This is a pleasant 75-year-old patient of Dr. Pranav Doe. Also follows with power brake operator Dr. Bao Mckee. Has a history of atrial fibrillation, flutter, atrial tachycardia did undergo ablation in August 2018. Chronic stable medical conditions include coronary artery disease with bypass in 2018, depression, diabetes, hypertension, hyperlipidemia, breast cancer. Patient for 2 days, has been having palpitations some shortness of breath. Very slight dizziness. She went to her creative services writer's office today so Dr. Leigh. Was found to have a heart rate around 170s. It appeared to be regular. She was given a carotid sinus massage and then it became irregular. Admitted with the diagnosis of atrial tachycardia with a rapid ventricular rate. On beta stiven and IV Cardizem. Today-Continues with some shortness of breath and palpitation.. Breathing better. Review of systems: Was done for constitutional, cardiovascular, GI, pulmonary. relevant finding as above Active Medications Apixaban (Apixaban 5 Mg Tab) 5 mg PO BID [facility] Last Admin: 06/10/20 21:13 Dose: 5 mg Documented by: Atorvastatin Calcium (Atorvastatin 20 Mg Tab) 20 mg PO HS [facility] Last Admin: 06/10/20 21:13 Dose: 20 mg Documented by: Furosemide (Furosemide 40 Mg Tab) 40 mg PO DAILY [facility] Last Admin: 06/10/20 08:32 Dose: 40 mg Documented by: Sodium Chloride (Saline 0.9%) 1,000 mls @ 20 mls/hr IV .Q24H [facility] Last Admin: 06/10/20 08:58 Dose: Not Given Documented by: Sodium Chloride (Saline 0.9%) 1,000 mls @ 20 mls/hr IV .Q24H [facility] Last Admin: 06/10/20 08:32 Dose: 20 mls/hr Documented by: Diltiazem HCl 125 mg/ Sodium (Chloride) 125 mls @ 5 mls/hr IV .Q24H [facility] Last Admin: 06/10/20 18:14 Dose: 5 mg/hr, 5 mls/hr Documented by: Insulin Aspart (Insulin Aspart (Novolog) 100 Unit/Ml Vial) 0 unit SQ ACHS [facility]; Protocol Last Admin: 06/10/20 21:13 Dose: 3 unit Documented by: Insulin Detemir (Insulin Detemir (Levemir) 100 Unit/Ml Syr) 20 unit SQ HS [facility] Last Admin: 06/10/20 21:14 Dose: 20 unit Documented by: Losartan Potassium (Losartan 25 Mg Tab) 25 mg PO DAILY [facility] Last Admin: 06/10/20 08:31 Dose: 25 mg Documented by: Magnesium Oxide (Magnesium Oxide 400 Mg Tab) 400 mg PO DAILY [facility] Last Admin: 06/10/20 08:31 Dose: 400 mg Documented by: Metformin HCl (Metformin 500 Mg Tab) 1,000 mg PO BID-W/MEALS [facility] Last Admin: 06/10/20 17:27 Dose: 1,000 mg Documented by: Metoprolol Succinate (Metoprolol Succinate (Er) 25 Mg Tab.Er.24h) 75 mg PO DAILY [facility] Last Admin: 06/10/20 08:32 Dose: 75 mg Documented by: Naloxone HCl (Naloxone 0.4 Mg/Ml 1 Ml Vial) 0.2 mg IV Q2M PRN PRN Reason: Opioid Reversal Spironolactone (Spironolactone 25 Mg Tab) 12.5 mg PO DAILY [facility] Last Admin: 06/10/20 08:32 Dose: 12.5 mg Documented by: Venlafaxine HCl (Venlafaxine Hcl Er 150 Mg Cap) 150 mg PO DAILY [facility] Last Admin: 06/10/20 08:32 Dose: 150 mg Documented by: Physical examination: VITAL SIGNS: 97.6, 96, 16, 123 bradycardia 3, 100% on 2 L GENERAL: Sitting up, comfortable EYES: Pupils equal. Conjunctiva normal. NECK: JVD not raised; masses not palpable. HEART: Heart sounds regular; no edema. LUNGS: Respiratory rate increased; clear to auscultation. ABDOMEN: Soft, nontender, liver spleen not palpable, no masses palpable. PSYCH: Alert and oriented x3; mood and affect normal. INVESTIGATIONS, reviewed in the clinical context: June 10: Creatinine 0.9 potassium 4.5 June 09: Check stat x-ray film personally reviewed by me shows bilateral pleural effusion 2-D echocardiogram-EF 45-50%. Moderate to severe mitral regurgitation, severe tricuspid regurgitation, moderate pulmonary hypertension White count 6.9 hemoglobin 11.1 platelets 277 potassium 5.5 BUN 38 creatinine 1.20 Troponin I 3 negative TSH 0.592 EKG tracing personally reviewed by me-atrial fibrillation/flutter with a rate of 139 Chest x-ray film personally reviewed by me-cardiomegaly with possible fluid in the fissure Previous testing: In January 2019 BUN 27 creatinine 0.91 Assessment: -Atrial tachycardia with a rapid ventricular rate.-Not better controlled -History of atrial fibrillation flutter with ablation -Severe mitral and moderate tricuspid regurgitation -Secondary pulmonary hypertension -Diabetes mellitus type 2 and oral hypoglycemic -Essential hypertension -Hyperlipidemia -Coronary artery disease prior history of coronary bypass in 2018 -Acute congestive heart failure exacerbation from systolic and diastolic dysfunction EF 45-50%. Started on Lasix-better Plan: Patient is currently on Toprol-XL , back and IV Cardizem drip. Check BMP, BNP in the morning. Scheduled for ablation on Saturday
[2020-06-11 06:48] LABS: Glucose,Whole Blood 82 mg/dL (75-99)
[2020-06-11] MEDS: metFORMIN 500 MG TAB PO SCH ×2 (06:49→16:56)
[2020-06-11] MEDS: INSULIN ASPART (NovoLOG) 100 UNIT/ML VIAL SQ SCH ×4 (06:49→20:19)
[2020-06-11 08:19] LABS: Potassium 4.1 mmol/L (3.5-5.1)
[2020-06-11] MEDS: VENLAFAXINE HCL ER 150 MG CAP PO SCH (08:33)
[2020-06-11] MEDS: MAGNESIUM OXIDE 400 MG TAB PO SCH (08:34)
[2020-06-11] MEDS: APIXABAN 5 MG TAB PO SCH ×2 (08:34→20:19)
[2020-06-11] MEDS: LOSARTAN 25 MG TAB PO SCH (08:34)
[2020-06-11] MEDS: SPIRONOLACTONE 25 MG TAB PO SCH (08:34)
[2020-06-11] MEDS: METOPROLOL SUCCINATE (ER) 25 MG TAB.ER.24H PO SCH (08:34)
[2020-06-11] MEDS: FUROSEMIDE 40 MG TAB PO SCH (08:34)
[2020-06-11] MEDS: SODIUM CHLORIDE 0.9% 1,000 ML IV SCH (08:35)
[2020-06-11 11:56] LABS: Glucose,Whole Blood 186 mg/dL (75-99)
--- NOTE | 2020-06-11 15:11 | PN ---
PROGRESS NOTE Pricila is a 75-year-old lady with history of permanent atrial fibrillation, status post prior ablations, who was admitted to hospital with atrial fibrillation with rapid ventricular rate and is to undergo another attempt at ablation on Saturday. This morning she is doing well. Symptoms have improved. Her shortness of breath has gotten better. EXAM: Heart rate is 90 beats per minute. Blood pressure is 100/76, respiratory rate 16. Chest exam reveals good air entry bilaterally. Heart exam reveals first and second heart sounds and a systolic murmur at the left lower sternal border. ABDOMEN: Soft. Exam of extremities did not reveal any edema. Peripheral pulses are felt. LABS: Show a potassium of 4.1, creatinine is 0.8. ASSESSMENT: Permanent atrial fibrillation with a better controlled ventricular rate. PLAN: Patient will continue the Lindsay Becerra and will undergo ablation on Saturday. MMODL / IJN: [id number] /
[2020-06-11 16:52] LABS: Glucose,Whole Blood 188 mg/dL (75-99)
[2020-06-11] MEDS: DILTIAZEM 125 MG in SODIUM CHLORIDE 0.9% 100 ML IV SCH (16:58)
[2020-06-11 20:11] LABS: Glucose,Whole Blood 169 mg/dL (75-99)
[2020-06-11] MEDS: INSULIN DETEMIR (LEVEMIR) 100 UNIT/ML SYR SQ SCH (20:19)
[2020-06-11] MEDS: ATORVASTATIN 20 MG TAB PO SCH (20:19)
--- NOTE | 2020-06-11 21:01 | P.PN ---
Progress Note - Text Progress Note Date: 06/11/20 Chief Complaint: palpitation history of presenting complaint: This is a pleasant 75-year-old patient of Dr. Pranav Doe. 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 Bao Mckee. Has a history of atrial fibrillation, flutter, atrial tachycardia did undergo ablation in August 2018. Chronic stable medical conditions include coronary artery disease with bypass in 2018, depression, diabetes, hypertension, hyperlipidemia, breast cancer. Patient for 2 days, has been having palpitations some shortness of breath. Very slight dizziness. She went to her psych coordinator's office today so Dr. Leigh. Was found to have a heart rate around 170s. It appeared to be regular. She was given a carotid sinus massage and then it became irregular. Admitted with the diagnosis of atrial tachycardia with a rapid ventricular rate. On beta stiven and IV Cardizem. Lasix added acute exacerbation of CHF EF 45- 50%.. Pending EP study. Today-Intermittent palpitation and some shortness of breath. Sitting up in a chair. Review of systems: Was done for constitutional, cardiovascular, GI, pulmonary. relevant finding as above Active Medications Apixaban (Apixaban 5 Mg Tab) 5 mg PO BID [facility] Last Admin: 06/11/20 20:19 Dose: 5 mg Documented by: Atorvastatin Calcium (Atorvastatin 20 Mg Tab) 20 mg PO [facility] Last Admin: 06/11/20 20:19 Dose: 20 mg Documented by: Furosemide (Furosemide 40 Mg Tab) 40 mg PO DAILY [facility] Last Admin: 06/11/20 08:34 Dose: 40 mg Documented by: Sodium Chloride (Saline 0.9%) 1,000 mls @ 20 mls/hr IV .Q24H [facility] Last Admin: 06/11/20 08:35 Dose: 20 mls/hr Documented by: Diltiazem HCl 125 mg/ Sodium (Chloride) 125 mls @ 5 mls/hr IV .Q24H [facility] Last Admin: 06/11/20 16:58 Dose: 5 mg/hr, 5 mls/hr Documented by: Insulin Aspart (Insulin Aspart (Novolog) 100 Unit/Ml Vial) 0 unit SQ [facility]; Protocol Last Admin: 06/11/20 20:19 Dose: 2 unit Documented by: Insulin Detemir (Insulin Detemir (Levemir) 100 Unit/Ml Syr) 20 unit SQ [facility] Last Admin: 06/11/20 20:19 Dose: 20 unit Documented by: Losartan Potassium (Losartan 25 Mg Tab) 25 mg PO DAILY [facility] Last Admin: 06/11/20 08:34 Dose: 25 mg Documented by: Magnesium Oxide (Magnesium Oxide 400 Mg Tab) 400 mg PO DAILY [facility] Last Admin: 06/11/20 08:34 Dose: 400 mg Documented by: Metformin HCl (Metformin 500 Mg Tab) 1,000 mg PO BID-W/MEALS [facility] Last Admin: 06/11/20 16:56 Dose: 1,000 mg Documented by: Metoprolol Succinate (Metoprolol Succinate (Er) 25 Mg Tab.Er.24h) 75 mg PO DAILY [facility] Last Admin: 06/11/20 08:34 Dose: 75 mg Documented by: Spironolactone (Spironolactone 25 Mg Tab) 12.5 mg PO DAILY [facility] Last Admin: 06/11/20 08:34 Dose: 12.5 mg Documented by: Venlafaxine HCl (Venlafaxine Hcl Er 150 Mg Cap) 150 mg PO DAILY [facility] Last Admin: 06/11/20 08:33 Dose: 150 mg Documented by: Physical examination: VITAL SIGNS: 98.2, 80, 16, 106/70, 98% on 2 L GENERAL: Sitting up in a chair, comfortable EYES: Pupils equal. Conjunctiva normal. NECK: JVD not raised; masses not palpable. HEART: Heart sounds regular; no edema. LUNGS: Respiratory rate increased; clear to auscultation. ABDOMEN: Soft, nontender, liver spleen not palpable, no masses palpable. PSYCH: Alert and oriented x3; mood and affect normal. INVESTIGATIONS, reviewed in the clinical context: June 11: Creatinine 0.84 potassium 4.1 proBNP 2840 June 10: Creatinine 0.9 potassium 4.5 June 09: Check stat x-ray film personally reviewed by me shows bilateral pleural effusion 2-D echocardiogram-EF 45-50%. Moderate to severe mitral regurgitation, severe tricuspid regurgitation, moderate pulmonary hypertension White count 6.9 hemoglobin 11.1 platelets 277 potassium 5.5 BUN 38 creatinine 1.20 Troponin I 3 negative TSH 0.592 EKG tracing personally reviewed by me-atrial fibrillation/flutter with a rate of 139 Chest x-ray film personally reviewed by me-cardiomegaly with possible fluid in the fissure Previous testing: In January 2019 BUN 27 creatinine 0.91 Assessment: -Atrial tachycardia with a rapid ventricular rate.-Not better controlled, pending EP study -History of atrial fibrillation flutter with ablation -Severe mitral and moderate tricuspid regurgitation -Secondary pulmonary hypertension -Diabetes mellitus type 2 and oral hypoglycemic -Essential hypertension -Hyperlipidemia -Coronary artery disease prior history of coronary bypass in 2018 -Acute congestive heart failure exacerbation from systolic and diastolic dysfunction EF 45-50%. Started on Lasix-better Plan: Patient is currently on Toprol-XL , , IV Cardizem drip. By mouth Lasix and Aldactone. . Scheduled for ablation on Saturday
[2020-06-12 06:15] LABS: Glucose,Whole Blood 67 mg/dL (75-99)
[2020-06-12] MEDS: INSULIN ASPART (NovoLOG) 100 UNIT/ML VIAL SQ SCH ×4 (06:35→20:20)
[2020-06-12 06:43] LABS: Glucose,Whole Blood 81 mg/dL (75-99)
[2020-06-12] MEDS: metFORMIN 500 MG TAB PO SCH ×2 (07:00→17:33)
[2020-06-12] MEDS: SODIUM CHLORIDE 0.9% 1,000 ML IV SCH (08:38)
[2020-06-12] MEDS: VENLAFAXINE HCL ER 150 MG CAP PO SCH (08:39)
[2020-06-12] MEDS: MAGNESIUM OXIDE 400 MG TAB PO SCH (08:39)
[2020-06-12] MEDS: APIXABAN 5 MG TAB PO SCH ×2 (08:39→20:20)
[2020-06-12] MEDS: FUROSEMIDE 40 MG TAB PO SCH (08:39)
[2020-06-12] MEDS: SPIRONOLACTONE 25 MG TAB PO SCH (08:39)
[2020-06-12] MEDS: LOSARTAN 25 MG TAB PO SCH (08:39)
[2020-06-12] MEDS: METOPROLOL SUCCINATE (ER) 25 MG TAB.ER.24H PO SCH (08:39)
--- NOTE | 2020-06-12 11:41 | P.PN ---
Subjective Progress Note Date: 06/12/20 This is a pleasant 75-year-old female with history of permanent atrial fibrillation, status post prior ablations, who was admitted to the hospital with atrial fibrillation with rapid ventricular response. She is scheduled to undergo another attempt at ablation tomorrow. Overall this morning she is doing well. Her breathing has improved. She has no complaints of palpitations, dizziness, lightheadedness, chest discomfort. Objective - Vital Signs Vital signs: Vital Signs Temp 98.2 F 06/12/20 08:25 Pulse 86 06/12/20 08:25 Resp 18 06/12/20 08:25 BP 121/77 06/12/20 08:25 Pulse Ox 100 06/12/20 08:25 Intake & Output 06/11/20 06/12/20 06/12/20 18:59 06:59 18:59 Intake Total 1235.667 420 240 Output Total 1200 Balance 35.667 420 240 Weight 71.9 kg Intake: Intake, IV Titration 113.667 Amount Diltiazem 125 mg In 113.667 Sodium Chloride 0.9% 100 ml @ 5 MG/HR 5 mls/hr IV .Q24H [facility] Rx#:[id number] Oral 1122 420 240 Output: Urine 1200 Other: Voiding Method Toilet Toilet # Voids 2 - Exam PHYSICAL EXAMINATION: HEENT: Head is atraumatic, normocephalic. Pupils equal, round. Neck is supple. There is no elevated jugular venous pressure. HEART EXAMINATION: Heart sounds regular, S1 and S2 with a systolic murmur. CHEST EXAMINATION: Lungs are clear to auscultation. No chest wall tenderness is noted on palpation or with deep breathing. ABDOMEN: Soft, nontender. Bowel sounds are heard. No organomegaly noted. EXTREMITIES: 2+ peripheral pulses with evidence of +1 pitting peripheral edema and no calf tenderness noted. NEUROLOGIC patient is awake, alert and oriented x3. . - Labs CBC & Chem 7: 06/06/20 10:24 06/11/20 07:10 Labs: Abnormal Lab Results - Last 24 Hours (Table) 06/11/20 06/11/20 06/11/20 Range/Units 11:50 16:50 20:09 POC Glucose (mg/dL) 186 H 188 H 169 H (75-99) mg/dL 12/06/20 Range/Units 06:14 POC Glucose (mg/dL) 67 L (75-99) mg/dL Assessment and Plan Assessment: #1 persistent atrial fibrillation, status post ablation, awaiting subsequent ablation to be done tomorrow #2 status post SVT ablation #3 CAD status post bypass grafting #4 acute diastolic heart failure #5 diabetes mellitus #6 hypertension #7 dyslipidemia #8 aortic stenosis Plan: From cardiology's perspective, medications were reviewed and will continue the same. Continue anticoagulation. Patient will undergo ablation tomorrow in hopes of achieving and maintaining sinus mechanism. We will continue to follow the patient provide further recommendations accordingly. The above dictated assessment and findings were discussed with signing physician. The impression and plan of care have been directed as dictated. Loyda Ortiz, Nurse Practitioner, acting as scribe for signing physician.
[2020-06-12 11:56] LABS: Glucose,Whole Blood 174 mg/dL (75-99)
[2020-06-12 17:12] LABS: Glucose,Whole Blood 228 mg/dL (75-99)
[2020-06-12] MEDS: DILTIAZEM 125 MG in SODIUM CHLORIDE 0.9% 100 ML IV SCH (19:24)
[2020-06-12 20:12] LABS: Glucose,Whole Blood 259 mg/dL (75-99)
[2020-06-12] MEDS: INSULIN DETEMIR (LEVEMIR) 100 UNIT/ML SYR SQ SCH (20:20)
[2020-06-12] MEDS: ATORVASTATIN 20 MG TAB PO SCH (20:20)
--- NOTE | 2020-06-13 00:13 | P.PN ---
Progress Note - Text Progress Note Date: 06/13/20 Chief Complaint: palpitation history of presenting complaint: This is a pleasant 75-year-old patient of Dr. Pranav Doe. Also follows with senior loss control specialist Dr. Bao Mckee. Has a history of atrial fibrillation, flutter, atrial tachycardia did undergo ablation in August 2018. Chronic stable medical conditions include coronary artery disease with bypass in 2018, depression, diabetes, hypertension, hyperlipidemia, breast cancer. Patient for 2 days, has been having palpitations some shortness of breath. Very slight dizziness. She went to her emery wheel molder's office today so Dr. Leigh. Was found to have a heart rate around 170s. It appeared to be regular. She was given a carotid sinus massage and then it became irregular. Admitted with the diagnosis of atrial tachycardia with a rapid ventricular rate. On beta stievn and IV Cardizem. Lasix added acute exacerbation of CHF EF 45- 50%.. Pending EP study. Today-diet. Laying in bed. In atrial tachycardia. Pending EP study. Review of systems: Was done for constitutional, cardiovascular, GI, pulmonary. relevant finding as above Active Medications Apixaban (Apixaban 5 Mg Tab) 5 mg PO BID [facility] Last Admin: 06/12/20 20:20 Dose: 5 mg Documented by: Atorvastatin Calcium (Atorvastatin 20 Mg Tab) 20 mg PO HS [facility] Last Admin: 06/12/20 20:20 Dose: 20 mg Documented by: Furosemide (Furosemide 40 Mg Tab) 40 mg PO DAILY [facility] Last Admin: 06/12/20 08:39 Dose: 40 mg Documented by: Sodium Chloride (Saline 0.9%) 1,000 mls @ 20 mls/hr IV .Q24H [facility] Last Admin: 06/12/20 08:38 Dose: 20 mls/hr Documented by: Diltiazem HCl 125 mg/ Sodium (Chloride) 125 mls @ 7.5 mls/hr IV .[id number] [facility] Last Admin: 06/12/20 19:24 Dose: 7.5 mg/hr, 7.5 mls/hr Documented by: Insulin Aspart (Insulin Aspart (Novolog) 100 Unit/Ml Vial) 0 unit SQ [facility]; Protocol Last Admin: 06/12/20 20:20 Dose: 4 unit Documented by: Insulin Detemir (Insulin Detemir (Levemir) 100 Unit/Ml Syr) 20 unit SQ [facility] Last Admin: 06/12/20 20:20 Dose: 20 unit Documented by: Losartan Potassium (Losartan 25 Mg Tab) 25 mg PO DAILY [facility] Last Admin: 06/12/20 08:39 Dose: 25 mg Documented by: Magnesium Oxide (Magnesium Oxide 400 Mg Tab) 400 mg PO DAILY [facility] Last Admin: 06/12/20 08:39 Dose: 400 mg Documented by: Metformin HCl (Metformin 500 Mg Tab) 1,000 mg PO BID-W/MEALS [facility] Last Admin: 06/12/20 17:33 Dose: 1,000 mg Documented by: Metoprolol Succinate (Metoprolol Succinate (Er) 25 Mg Tab.Er.24h) 75 mg PO DAILY [facility] Last Admin: 06/12/20 08:39 Dose: 75 mg Documented by: Spironolactone (Spironolactone 25 Mg Tab) 12.5 mg PO DAILY [facility] Last Admin: 06/12/20 08:39 Dose: 12.5 mg Documented by: Venlafaxine HCl (Venlafaxine Hcl Er 150 Mg Cap) 150 mg PO DAILY [facility] Last Admin: 06/12/20 08:39 Dose: 150 mg Documented by: Physical examination: VITAL SIGNS: 97.6, 95, 18, 110/66, 91% room air GENERAL: Laying in bed, comfortable EYES: Pupils equal. Conjunctiva normal. NECK: JVD not raised; masses not palpable. HEART: Heart sounds regular; no edema. LUNGS: Respiratory rate increased; clear to auscultation. ABDOMEN: Soft, nontender, liver spleen not palpable, no masses palpable. PSYCH: Alert and oriented x3; mood and affect normal. INVESTIGATIONS, reviewed in the clinical context: June 11: Creatinine 0.84 potassium 4.1 proBNP 2840 June 10: Creatinine 0.9 potassium 4.5 June 09: Check stat x-ray film personally reviewed by me shows bilateral pleural effusion 2-D echocardiogram-EF 45-50%. Moderate to severe mitral regurgitation, severe tricuspid regurgitation, moderate pulmonary hypertension White count 6.9 hemoglobin 11.1 platelets 277 potassium 5.5 BUN 38 creatinine 1.20 Troponin I 3 negative TSH 0.592 EKG tracing personally reviewed by me-atrial fibrillation/flutter with a rate of 139 Chest x-ray film personally reviewed by me-cardiomegaly with possible fluid in the fissure Previous testing: In January 2019 BUN 27 creatinine 0.91 Assessment: -Atrial tachycardia with a rapid ventricular rate.-Not better controlled, pending EP study -History of atrial fibrillation flutter with ablation -Severe mitral and moderate tricuspid regurgitation -Secondary pulmonary hypertension -Diabetes mellitus type 2 and oral hypoglycemic -Essential hypertension -Hyperlipidemia -Coronary artery disease prior history of coronary bypass in 2018 -Acute congestive heart failure exacerbation from systolic and diastolic dysfunction EF 45-50%. Started on Lasix-better Plan: Patient is currently on Toprol-XL , , IV Cardizem drip. , Lasix and Aldactone. . Scheduled for ablation tomorrow
[2020-06-13 06:17] LABS: Glucose,Whole Blood 85 mg/dL (75-99)
[2020-06-13] MEDS: INSULIN ASPART (NovoLOG) 100 UNIT/ML VIAL SQ SCH ×4 (06:32→21:40)
[2020-06-13] MEDS: LOSARTAN 25 MG TAB PO SCH (06:32)
[2020-06-13] MEDS: metFORMIN 500 MG TAB PO SCH ×2 (06:32→22:30)
[2020-06-13] MEDS: METOPROLOL SUCCINATE (ER) 25 MG TAB.ER.24H PO SCH (06:32)
[2020-06-13] MEDS: MAGNESIUM OXIDE 400 MG TAB PO SCH (06:33)
[2020-06-13] MEDS: SPIRONOLACTONE 25 MG TAB PO SCH (06:33)
[2020-06-13] MEDS: VENLAFAXINE HCL ER 150 MG CAP PO SCH (06:33)
[2020-06-13] MEDS: FUROSEMIDE 40 MG TAB PO SCH (06:34)
[2020-06-13] MEDS: APIXABAN 5 MG TAB PO SCH ×2 (06:34→22:30)
[2020-06-13 08:58] VITALS: BMI 27.2
[2020-06-13 12:15] LABS: Glucose,Whole Blood 76 mg/dL (75-99)
[2020-06-13] MEDS: DILTIAZEM 125 MG in SODIUM CHLORIDE 0.9% 100 ML IV SCH (12:22)
[2020-06-13] MEDS ORDERED: IV FLUID CONTINUATION 1,000 ML IV ONE (13:13)
[2020-06-13] MEDS ORDERED: SUCCINYLCHOLINE CHLORIDE 100 MG/5 ML SYR IV ONE (13:13)
[2020-06-13] MEDS ORDERED: ONDANSETRON 4 MG/2 ML VIAL ONE (13:13)
[2020-06-13] MEDS ORDERED: FUROSEMIDE 10 MG/ML 2 ML VIAL ONE (13:13)
[2020-06-13] MEDS ORDERED: LIDOCAINE 1% INJ 10MG/ML (20 ML MDV) ONE ×2 (13:13→13:52)
[2020-06-13] MEDS ORDERED: ISOPROTERENOL 250 MCG/1.25 ML SYR IV ONE (13:13)
[2020-06-13] MEDS ORDERED: fentaNYL (PF) 50 MCG/ML 2 ML AMP ONE (13:13)
[2020-06-13] MEDS ORDERED: GLYCOPYRROLATE 0.2 MG/ML 2 ML VIAL ONE (13:13)
[2020-06-13] MEDS ORDERED: ROCURONIUM 10 MG/ML (10 ML VIAL) IV ONE (13:13)
[2020-06-13] MEDS ORDERED: MIDAZOLAM 2 MG/2 ML VIAL ONE (13:13)
[2020-06-13] MEDS ORDERED: DEXAMETHASONE SOD PHOSPHATE 4 MG/ML 1 ML VIAL ONE (13:13)
[2020-06-13] MEDS ORDERED: PROPOFOL 10 MG/ML 20 ML VIAL IV ONE (13:13)
[2020-06-13] MEDS ORDERED: PHENYLEPHRINE 10 MG/ML VIAL ONE (13:13)
[2020-06-13] MEDS ORDERED: NEOSTIGMINE 1 MG/ML 10 ML VIAL ONE (13:13)
[2020-06-13] MEDS ORDERED: LIDOCAINE 1% INJ 10MG/ML (20 ML MDV) SQ ONE (13:57)
[2020-06-13] MEDS ORDERED: HEPARIN SOD,PORK IN 0.45% NACL 25,000 UNIT in 0.45% NACL 1 250ML.BAG IV ONE (14:10)
[2020-06-13] MEDS ORDERED: HEPARIN SODIUM (1,000 UNIT/ML) 1,000 UNIT in SODIUM CHLORIDE 0.9% 1,000 ML IRRIGATION ONE ×2 (15:41→17:24)
[2020-06-13] MEDS: SODIUM CHLORIDE 0.9% 1,000 ML IV SCH (15:55)
[2020-06-13] MEDS ORDERED: SODIUM CHLORIDE 0.9% 1,000 ML IV ONE (17:24)
[2020-06-13] MEDS ORDERED: PROTAMINE SULFATE 10 MG/ML 5 ML VIAL IV ONE ×2 (18:10→18:15)
[2020-06-13] MEDS ORDERED: HYDROcodone/APAP 5-325MG 1 EACH TAB PO PRN (18:31)
[2020-06-13] MEDS ORDERED: ACETAMINOPHEN TAB 325 MG TAB PO PRN (18:31)
[2020-06-13] MEDS ORDERED: ACETAMINOPHEN IV (For NPO) 1,000 MG in EMPTY BAG 1 BAG IVPB ONE (18:31)
[2020-06-13] MEDS ORDERED: DEXTROSE 50% SYRINGE 50 ML IVP ONE (19:30)
[2020-06-13 20:02] LABS: Glucose,Whole Blood 136 mg/dL (75-99)
--- NOTE | 2020-06-13 20:17 | CE ---
CARDIAC ELECTROPHYSIOLOGY REPORT Pricila Acuña is a 75-year-old female who presented with atrial tachycardia with upright P-waves in lead V1 with RVR. She was difficult to rate-control. She has been on anticoagulation. She was brought into the EP lab today for mapping and ablation. She has had cryoablation of the pulmonary veins and later ablations and focal atrial tachycardia ablation in the left atrium as well as in the right atrium. The patient was brought to the EP lab in a fasting state. Written informed consent was obtained prior to the procedure. The procedure was performed under general anesthesia. Venous sheaths were placed in the right and left femoral veins. Intracardiac echo catheter was placed. Coronary sinus catheter was placed. Mapping and diagnostic catheters were placed in the left and right atrium. Multiple electroanatomic maps, including activation maps and scar maps, were made. Tachycardia cycle length was 352 milliseconds, QRS 82 milliseconds, QT 390 milliseconds. The sinus cycle length was 1039 milliseconds. Right atrial pressure 13/7/10 mmHg. LA pressure 25/1/12 mmHg. When in sinus rhythm, AV node Wenckebach was 280 milliseconds. While in tachycardia, a transseptal catheterization was performed. The interatrial septum was identified. This was a very thick interatrial septum, and a transseptal needle was used to cross and place the sheath. Following that, a PentaRay catheter was placed and activation mapping was performed. During activation mapping, when the PentaRay catheter was in the upper anterior LA wall, the tachycardia terminated. Following that, scar mapping was performed, and it appeared that there was a gap along the anterior LA line close to the roof. A diagnostic EP study was performed and the tachycardia was re-induced and mapped. This left atrial tachycardia was utilizing the left lateral aspect of the left atrial roof, activating the posterior wall in the craniocaudal direction and then through the alba of the right-sided veins as well as inferior to the right inferior vein coursing anteriorly along the mitral anulus to create mitral reentry (double tachycardia). RF ablation was performed along the anterior LA roof. RF ablation was also performed along the previous ablation line in the anterior LA now this time. This time the line was extended to the mitral anulus. A complete line of block was identified. Pacing maneuvers were performed from the left atrial appendage and the ridge to confirm that there was complete block at the level of the roof as well as along the mitral isthmus. Following that, right pulmonary vein isolation was performed at an antral level. The previous isolation was with cryoablation at its ostial level. These are large pulmonary veins and RF line was made anteriorly along the antrum as well as posteriorly. For the posterior line, esophageal deflection had to be performed, and the esophagus was identified with barium to ensure that the esophagus was at least 1 cm away from the RF lesion set posteriorly. Following that, a full diagnostic EP study was performed. AV node Wenckebach block 280 milliseconds. Sinus node recovery times at 600, 500 and 400 milliseconds were 890 milliseconds, 1586 and 1304 milliseconds. Atrial extrastimulation was performed. Burst stimulation was performed. Then Isuprel was given in high dose and burst stimulation was once again performed. This resulted in induction of somewhat organized atrial fibrillation. This rhythm had concentric activation. Therefore the septum was mapped once again, and when RF ablation was applied just inferior to the fossa ovalis at the puncture site, it resulted in organization of the atrial fibrillation further to a rapid atrial tachycardia with a cycle length of about 230 milliseconds. However, this still remained atrial fibrillation, and the EKG was changed from negative atrial signals in V1 to upright positive atrial signals in V1 suggesting biatrial rhythm. The mapping catheter was then placed in the right atrium. As the right atrium was being mapped, the entire cycle length was met in this chamber. However, with further mapping, the tachycardia terminated. At this time we decided to stop any further ablations and follow the patient clinically to see if there was any recurrence of atrial fibrillation. Previously after ablation she has not had any atrial fibrillation. All sheaths were removed and hemostasis was assured. RESULT: PVI of the right-sided pulmonary veins at an antral level. Linear ablation for reentrant tachycardia involving the roof and linear ablation of an atrial tachycardia involving the mitral isthmus. An anterior isthmus line was completed. RF ablation performed on the septum close to the fossa ovalis resulting in further organization of atrial fibrillation that was induced later. Esophageal deflection and barium injection were performed. Radiographic evaluation of the esophagus was performed at the completion of the procedure. There was no evidence of esophageal ulceration, perforation, and the barium were then suctioned out. PLAN: Continue Mariam. MMODL / IJN: [id number] /
[2020-06-13 20:50] LABS: Glucose,Whole Blood 113 mg/dL (75-99)
[2020-06-13] MEDS: ATORVASTATIN 20 MG TAB PO SCH (22:30)
[2020-06-13] MEDS: INSULIN DETEMIR (LEVEMIR) 100 UNIT/ML SYR SQ SCH (22:30)
[2020-06-14 06:28] LABS: Glucose,Whole Blood 159 mg/dL (75-99)
[2020-06-14] MEDS: INSULIN ASPART (NovoLOG) 100 UNIT/ML VIAL SQ SCH ×2 (07:08→12:06)
[2020-06-14] MEDS: metFORMIN 500 MG TAB PO SCH (07:38)
[2020-06-14] MEDS: MAGNESIUM OXIDE 400 MG TAB PO SCH (08:14)
[2020-06-14] MEDS: APIXABAN 5 MG TAB PO SCH (08:14)
[2020-06-14] MEDS: LOSARTAN 25 MG TAB PO SCH (08:14)
[2020-06-14] MEDS: SPIRONOLACTONE 25 MG TAB PO SCH (08:15)
[2020-06-14] MEDS: VENLAFAXINE HCL ER 150 MG CAP PO SCH (08:15)
[2020-06-14] MEDS: FUROSEMIDE 40 MG TAB PO SCH (08:15)
[2020-06-14] MEDS ORDERED: METOPROLOL SUCCINATE (ER) 25 MG TAB.ER.24H PO SCH (09:00)
[2020-06-14 09:14] VITALS: RESP 16
--- NOTE | 2020-06-14 11:55 | P.PN ---
Subjective This is a pleasant 75-year-old female past medical history significant for paroxysmal atrial fibrillation status post ablation, hypertension, dyslipidemia, coronary artery disease status post bypass grafting, a SVTT status post ablation and diabetes mellitus. She follows in the office with Dr. Leigh. The patient is seen and examined sitting up in the chair in no acute distress. She underwent successful RF ablation and pulmonary vein isolation yesterday with Dr. Mckee. EKG this morning reveals sinus mechanism. She denies chest pain, dizziness, shortness of breath or palpitations. Femoral vein access sites clean and dry with no bleeding, oozing or ecchymosis. Blood pressure 119/56 heart rate 91 afebrile and maintaining oxygen saturation on nasal cannula. Currently maintained on Eliquis 5 mg twice a day, atorvastatin 20 mg at bedtime, Lasix 40 mg daily, losartan 25 mg daily, Toprol 25 mg daily and Aldactone 12.5 mg daily. GENERAL: Well-appearing, well-nourished and in no acute distress. NECK: Supple without JVD or thyromegaly. LUNGS: Clear to auscultation bilaterally. No rales, wheezes or rhonchi. Respiration equal and unlabored. HEART: Irregular rate and rhythm with systolic ejection murmur at the base, no rubs or gallops. S1 and S2 heard. EXTREMITIES: Normal range of motion, trace bilateral lower extremity edema. No clubbing or cyanosis. Peripheral pulses intact. ASSESSMENT Atrial tachycardia Acute diastolic heart failure Chronic persistent atrial fibrillation s/p ablation SVT s/p ablation Coronary artery disease s/p bypass grafting Diabetes mellitus Hypertension Dyslipidemia Aortic stenosis PLAN Stable for discharge on current medical regimen. Follow-up in the office with Dr. Leigh on Saturday. Nurse Practitioner note has been reviewed, I agree with a documented findings and plan of care. Patient was seen and examined. Objective - Vital Signs Vital signs: Vital Signs Temp 96.8 F L 06/14/20 08:00 Pulse 91 06/14/20 08:00 Resp 16 06/14/20 08:00 BP 119/56 06/14/20 08:00 Pulse Ox 94 L 06/14/20 08:00 Intake & Output 06/13/20 06/14/20 06/14/20 18:59 06:59 18:59 Intake Total 2165 330 120 Output Total 1200 800 Balance 965 -470 120 Weight 72 kg 79 kg Intake: IV 2165 150 Intake, IV Titration 60 Amount Sodium Chloride 0.9% 1, 60 000 ml @ 20 mls/hr IV . Q24H [facility] Rx#:[id number] Oral 120 120 Output: Urine 1200 800 Other: Voiding Method Toilet Toilet # Voids 1 - Labs CBC & Chem 7: 06/06/20 10:24 06/11/20 07:10 Labs: Abnormal Lab Results - Last 24 Hours (Table) 06/13/20 06/13/20 06/14/20 Range/Units 20:01 20:46 06:05 POC Glucose (mg/dL) 136 H 113 H 159 H (75-99) mg/dL
[2020-06-14 12:10] LABS: Glucose,Whole Blood 200 mg/dL (75-99)
[2020-06-14 13:18] VITALS: BP 121/59; PULSE 82; TEMP 98.6
--- NOTE | 2020-06-15 21:00 | P.DS ---
Providers Date of admission: 06/06/20 10:40 Expected date of discharge: 06/14/20 Attending physician: Andrey Moore Consults: 06/06/20 10:40 Consult Physician Urgent Consulting Provider: Imelda Wang Consult Reason/Comments: a fib w rvr Do you want consulting provider notified?: Yes 06/06/20 21:28 Consult Physician Routine Consulting Provider: Bao Mckee Consult Reason/Comments: uncontrolled atrial tachycardia Do you want consulting provider notified?: Yes Primary care physician: rPanav Doe MD Hospital Course: Chief Complaint: palpitation history of presenting complaint: This is a pleasant 75-year-old patient of Dr. Pranav Doe. Also follows with thread winder Dr. Bao Mckee. Has a history of atrial fibrillation, flutter, atrial tachycardia did undergo ablation in August 2018. Chronic stable medical conditions include coronary artery disease with bypass in 2018, depression, diabetes, hypertension, hyperlipidemia, breast cancer. Patient for 2 days, has been having palpitations some shortness of breath. Very slight dizziness. She went to her deaf teacher's office today so Dr. Leigh. Was found to have a heart rate around 170s. It appeared to be regular. She was given a carotid sinus massage and then it became irregular. Admitted with the diagnosis of atrial tachycardia with a rapid ventricular rate. On beta stiven and IV Cardizem. Lasix added acute exacerbation of CHF EF 45- 50%.. Pending EP study. EP procedure with carried out to include a-ablation of atrial reentrant tachycardia, atrial fibrillation. More details and Dr. Bao Mckee's notes. Today-patient doing well. Comfortable. Asymptomatic. Cleared by cardiology. Fish Farm Laborer: Cardiology associates Dr. Bao Mckee-thread winder Physical examination: VITAL SIGNS: 96.8, 91, 16, 119/56, 96% room air GENERAL: Sitting up, comfortable EYES: Pupils equal. Conjunctiva normal. NECK: JVD not raised; masses not palpable. HEART: Heart sounds regular; no edema. LUNGS: Respiratory rate normal clear to auscultation. ABDOMEN: Soft, nontender, liver spleen not palpable, no masses palpable. PSYCH: Alert and oriented x3; mood and affect normal. INVESTIGATIONS, reviewed in the clinical context: June 11: Creatinine 0.84 potassium 4.1 proBNP 2840 June 10: Creatinine 0.9 potassium 4.5 June 09: Check stat x-ray film personally reviewed by me shows bilateral pleural effusion 2-D echocardiogram-EF 45-50%. Moderate to severe mitral regurgitation, severe tricuspid regurgitation, moderate pulmonary hypertension White count 6.9 hemoglobin 11.1 platelets 277 potassium 5.5 BUN 38 creatinine 1.20 Troponin I 3 negative TSH 0.592 EKG tracing personally reviewed by me-atrial fibrillation/flutter with a rate of 139 Chest x-ray film personally reviewed by me-cardiomegaly with possible fluid in the fissure Previous testing: In January 2019 BUN 27 creatinine 0.91 Assessment: -Atrial tachycardia and inducible atrial fibrillation.-Not better controlled,- underwent ablation -History of atrial fibrillation flutter with ablation -Severe mitral and moderate tricuspid regurgitation -Secondary pulmonary hypertension -Diabetes mellitus type 2 and oral hypoglycemic -Essential hypertension -Hyperlipidemia -Coronary artery disease prior history of coronary bypass in 2018 -Acute congestive heart failure exacerbation from systolic and diastolic dysfunction EF 45-50%. Started on Lasix-better Disposition: Home Patient Condition at Discharge: Stable Plan - Discharge Summary Discharge Rx Participant: No New Discharge Prescriptions: New Spironolactone [Aldactone] 12.5 mg PO DAILY #90 tab Furosemide [Lasix] 40 mg PO DAILY #90 tab Continue Losartan Potassium [Cozaar] 25 mg PO HS Apixaban [Eliquis] 5 mg PO BID #60 tab metFORMIN HCL [Glucophage] 1,000 mg PO BID Venlafaxine HCl ER [Effexor XR] 150 mg PO DAILY Rosuvastatin [Crestor] 10 mg PO HS Slow-Mag 71.5mg 71.5 mg PO BID Metoprolol Succinate [Toprol XL] 25 mg PO DAILY #0 Insulin Detemir [Levemir Flextouch] 20 unit SQ HS Discharge Medication List Losartan Potassium [Cozaar] 25 mg PO HS 03/31/18 [History] Apixaban [Eliquis] 5 mg PO BID #60 tab 04/03/18 [Rx] metFORMIN HCL [Glucophage] 1,000 mg PO BID 05/19/18 [History] Rosuvastatin [Crestor] 10 mg PO HS 12/06/18 [History] Slow-Mag 71.5mg 71.5 mg PO BID 12/06/18 [History] Venlafaxine HCl ER [Effexor XR] 150 mg PO DAILY 12/06/18 [History] Metoprolol Succinate [Toprol XL] 25 mg PO DAILY #0 12/16/18 [Rx] Insulin Detemir [Levemir Flextouch] 20 unit SQ HS 06/06/20 [History] Furosemide [Lasix] 40 mg PO DAILY #90 tab 06/14/20 [Rx] Spironolactone [Aldactone] 12.5 mg PO DAILY #90 tab 06/14/20 [Rx] Follow up Appointment(s)/Referral(s): Jay Leigh MD [STAFF PHYSICIAN] - 06/24/20 11:00 am Pranav Doe MD [Primary Care Provider] - 1-2 days (Office will call back with a follow up appointment. ) Patient Instructions/Handouts: Cardiac Ablation (DC) Discharge Disposition: HOME SELF-CARE
== END 2020-06-14 15:55 | disposition home or self-care (01) | DRG 273 ==
LOC: EC 09:32 → 3SCARD 10:40
PROVIDERS: ADMIT Hospitalist; ATTEND Hospitalist
PROC: 02583ZZ Destruction of Conduction Mechanism, Percutaneous Approach (ICD-10-PCS; principal; 2020-06-13 11:15)
PROC: 02K83ZZ Map Conduction Mechanism, Percutaneous Approach (ICD-10-PCS; 2020-06-13 11:15)
DX: I48.21 Permanent atrial fibrillation (principal); I50.43 Acute on chronic combined systolic (congestive) and diastolic (congestive) heart failure; I11.0 Hypertensive heart disease with heart failure; I27.22 Pulmonary hypertension due to left heart disease; Z79.4 Long term (current) use of insulin; E11.9 Type 2 diabetes mellitus without complications; I47.1 Supraventricular tachycardia; E78.5 Hyperlipidemia, unspecified; F32.9 Major depressive disorder, single episode, unspecified; I25.10 Atherosclerotic heart disease of native coronary artery without angina pectoris; I44.1 Atrioventricular block, second degree; R09.02 Hypoxemia; I08.3 Combined rheumatic disorders of mitral, aortic and tricuspid valves; Z71.3 Dietary counseling and surveillance; Z79.899 Other long term (current) drug therapy; Z79.01 Long term (current) use of anticoagulants; Z86.73 Personal history of transient ischemic attack (TIA), and cerebral infarction without residual deficits; Z85.3 Personal history of malignant neoplasm of breast; Z92.3 Personal history of irradiation; Z95.1 Presence of aortocoronary bypass graft; Z98.890 Other specified postprocedural states; Z98.51 Tubal ligation status; Z87.81 Personal history of (healed) traumatic fracture; Z88.2 Allergy status to sulfonamides; Z80.1 Family history of malignant neoplasm of trachea, bronchus and lung; Z82.49 Family history of ischemic heart disease and other diseases of the circulatory system
CPT/HCPCS: 36415; 71045; 71046; 80048; 80053; 83735; 83880; 84443; 84484; 85025; 85347; 85610; 85730; 93005; 93306; 93613; 93623; 93656; 93657; 93662; 96360; 99291

== ENCOUNTER 2022-04-09 12:40 | Observation (INO) | payer MEDICARE, BC ==
--- NOTE | 2022-04-09 14:08 | ED ---
General Adult HPI - General Chief complaint: Altered Mental Status Stated complaint: Slurred speech, prev. TIA Time Seen by Provider: 04/09/22 12:52 Source: patient, RN notes reviewed, old records reviewed Mode of arrival: ambulatory Limitations: no limitations - History of Present Illness Initial comments: 76-year-old female presented for evaluation of slurred speech which occurred on Saturday which was 2 days prior. It had resolved apparently after several hours. History of TIA with similar symptoms. No headache, no chest pain, no abdominal pain, no limb weakness or numbness. No gait instability. Patient does have a slight word finding difficulty but she states this is chronic and unchanged from baseline. - Related Data Home Medications Medication Instructions Recorded Confirmed Losartan Potassium [Cozaar] 25 mg PO HS 03/31/18 06/06/20 metFORMIN HCL [Glucophage] 1,000 mg PO BID 05/19/18 06/06/20 Rosuvastatin [Crestor] 10 mg PO HS 12/06/18 06/06/20 Slow-Mag 71.5mg 71.5 mg PO BID 12/06/18 06/06/20 Venlafaxine HCl ER [Effexor XR] 150 mg PO DAILY 12/06/18 06/06/20 Insulin Detemir [Levemir Flextouch 20 unit SQ HS 06/06/20 06/06/20 Pen] Previous Rx's Medication Instructions Recorded Apixaban [Eliquis] 5 mg PO BID #60 tab 04/03/18 Metoprolol Succinate [Toprol XL] 25 mg PO DAILY #0 12/16/18 Furosemide [Lasix] 40 mg PO DAILY #90 tab 06/14/20 Spironolactone [Aldactone] 12.5 mg PO DAILY #90 tab 06/14/20 Allergies Allergy/AdvReac Type Severity Reaction Status Date / Time Sulfa (Sulfonamide Allergy Rash/Hives Verified 04/09/22 12:46 Antibiotics) sulfamethoxazole Allergy Rash/Hives Verified 04/09/22 12:46 [From Bactrim] trimethoprim [From Bactrim] Allergy Rash/Hives Verified 04/09/22 12:46 Review of Systems ROS Statement: Those systems with pertinent positive or pertinent negative responses have been documented in the HPI. ROS Other: All systems not noted in ROS Statement are negative. Past Medical History Past Medical History: Cancer, CVA/TIA, Diabetes Mellitus, Hyperlipidemia, Hypertension, Respiratory Disorder Additional Past Medical History / Comment(s): See Dr Mckee's H&P. Hx breast cancer in 2006 with lumpectomy and radiation. BILATERAL PLEURAL EFFUSIONS. TIA November 01 History of Any Multi-Drug Resistant Organisms: None Reported Past Surgical History: Breast Surgery, Coronary Bypass/CABG, Hernia Repair, Orthopedic Surgery, Tubal Ligation Additional Past Surgical History / Comment(s): Surgery for broken arm, CABG X 2, ZELAYA to the LAD, SVG to the OM. POSSIBLE BILATERAL THORACENTESIS. Ablation, EPS, cardioversion., Past Anesthesia/Blood Transfusion Reactions: No Reported Reaction Past Psychological History: Depression Past Alcohol Use History: Rare Past Drug Use History: None Reported - Past Family History Sister(s) Family Medical History: Cancer, Pulmonary Embolus Additional Family Medical History / Comment(s): Lung cancer. General Exam Limitations: no limitations General appearance: alert, in no apparent distress Head exam: Present: atraumatic, normocephalic Eye exam: Present: normal appearance, PERRL ENT exam: Present: normal exam Neck exam: Present: normal inspection. Absent: tenderness Respiratory exam: Present: normal lung sounds bilaterally. Absent: respiratory distress, wheezes Cardiovascular Exam: Present: regular rate, normal rhythm, systolic murmur GI/Abdominal exam: Present: soft. Absent: distended, tenderness, guarding Extremities exam: Present: normal inspection, normal capillary refill Neurological exam: Present: alert, oriented X3, CN II-XII intact, other (NIH of 0). Absent: motor sensory deficit Course Vital Signs 04/09/22 12:42 Temperature 98.4 F Pulse Rate 85 Respiratory 16 Rate Blood Pressure 164/74 O2 Sat by Pulse 93 L Oximetry EKG Findings - EKG Comments: EKG Findings:: EKG: Sinus rhythm rate of 77 LA interval 160, QRS duration 88, QTC [address] segment elevation. Medical Decision Making - Medical Decision Making 76-year-old female with previous TIA presenting with slurred speech which occurred and resolved on Saturday 2 days prior. Patient has an NIH is 0 she is mildly hypertensive. I did perform CT imaging which is negative for acute pathology. Laboratory testing is within normal limits with exception of mild hyperglycemia. Patient will be admitted for TIA workup. Echo and carotid ultrasound has been ordered. Case discussed with [facility] physician. - Lab Data Result diagrams: 04/09/22 14:15 04/09/22 14:15 Lab Results 04/09/22 04/09/22 04/09/22 Range/Units 14:15 14:15 14:15 WBC 5.6 (3.8-10.6) k/uL RBC 3.80 (3.80-5.40) m/uL Hgb 12.5 (11.4-16.0) gm/dL Hct 34.3 (34.0-46.0) % MCV 90.3 (80.0-100.0) fL MCH 32.9 (25.0-35.0) pg MCHC 36.4 (31.0-37.0) g/dL RDW 13.5 (11.5-15.5) % Plt Count 163 (150-450) k/uL MPV 8.6 Neutrophils % 72 % Lymphocytes % 15 % Monocytes % 7 % Eosinophils % 4 % Basophils % 0 % Neutrophils # 4.0 (1.3-7.7) k/uL Lymphocytes # 0.9 L (1.0-4.8) k/uL Monocytes # 0.4 (0-1.0) k/uL Eosinophils # 0.2 (0-0.7) k/uL Basophils # 0.0 (0-0.2) k/uL PT 10.8 (9.0-12.0) sec INR 1.0 (<1.2) APTT 25.8 (22.0-30.0) sec Sodium 139 (137-145) mmol/L Potassium 4.9 (3.5-5.1) mmol/L Chloride 102 (98-107) mmol/L Carbon Dioxide 20 L (22-30) mmol/L Anion Gap 17 mmol/L BUN 27 H (7-17) mg/dL Creatinine 1.09 H (0.52-1.04) mg/dL Est GFR (CKD-EPI)AfAm 57 (>60 ml/min/1.73 sqM) Est GFR (CKD-EPI)NonAf 50 (>60 ml/min/1.73 sqM) Glucose 192 H (74-99) mg/dL Calcium 9.3 (8.4-10.2) mg/dL Total Bilirubin 0.5 (0.2-1.3) mg/dL AST 18 (14-36) U/L ALT 17 (4-34) U/L Alkaline Phosphatase 63 (38-126) U/L Troponin I (0.000-0.034) ng/mL Total Protein 6.7 (6.3-8.2) g/dL Albumin 4.5 (3.5-5.0) g/dL 04/09/22 Range/Units 14:15 WBC (3.8-10.6) k/uL RBC (3.80-5.40) m/uL Hgb (11.4-16.0) gm/dL Hct (34.0-46.0) % MCV (80.0-100.0) fL MCH (25.0-35.0) pg MCHC (31.0-37.0) g/dL RDW (11.5-15.5) % Plt Count (150-450) k/uL MPV Neutrophils % % Lymphocytes % % Monocytes % % Eosinophils % % Basophils % % Neutrophils # (1.3-7.7) k/uL Lymphocytes # (1.0-4.8) k/uL Monocytes # (0-1.0) k/uL Eosinophils # (0-0.7) k/uL Basophils # (0-0.2) k/uL PT (9.0-12.0) sec INR (<1.2) APTT (22.0-30.0) sec Sodium (137-145) mmol/L Potassium (3.5-5.1) mmol/L Chloride (98-107) mmol/L Carbon Dioxide (22-30) mmol/L Anion Gap mmol/L BUN (7-17) mg/dL Creatinine (0.52-1.04) mg/dL Est GFR (CKD-EPI)AfAm (>60 ml/min/1.73 sqM) Est GFR (CKD-EPI)NonAf (>60 ml/min/1.73 sqM) Glucose (74-99) mg/dL Calcium (8.4-10.2) mg/dL Total Bilirubin (0.2-1.3) mg/dL AST (14-36) U/L ALT (4-34) U/L Alkaline Phosphatase (38-126) U/L Troponin I <0.012 (0.000-0.034) ng/mL Total Protein (6.3-8.2) g/dL Albumin (3.5-5.0) g/dL Disposition Clinical Impression: TIA (transient ischemic attack) Disposition: ADMITTED IP TO THIS HOSP Condition: Stable Is patient prescribed a controlled substance at d/c from ED?: No Referrals: Pranav Doe MD [Primary Care Provider] - 1-2 days Time of Disposition: 15:28
[2022-04-09 14:28] LABS: Basophils % (A) 0 %; Eosinophils # (A) 0.2 k/uL (0-0.7); Eosinophils % (A) 4 %; HCT 34.3 % (34.0-46.0); HGB 12.5 gm/dL (11.4-16.0); Lymphocytes # (A) 0.9 k/uL (1.0-4.8); Lymphocytes % (A) 15 %; MCH 32.9 pg (25.0-35.0); MCHC 36.4 g/dL (31.0-37.0); MCV 90.3 fL (80.0-100.0); Mean Platelet Volume 8.6; Monocytes # (A) 0.4 k/uL (0-1.0); Monocytes % (A) 7 %; Neutrophils % (A) 72 %; Platelet Count 163 k/uL (150-450); RDW 13.5 % (11.5-15.5); WBC 5.6 k/uL (3.8-10.6)
[2022-04-09 14:37] LABS: Albumin 4.5 g/dL (3.5-5.0); Calcium 9.3 mg/dL (8.4-10.2); Potassium 4.9 mmol/L (3.5-5.1); Total Bilirubin 0.5 mg/dL (0.2-1.3); Total Protein 6.7 g/dL (6.3-8.2)
[2022-04-09 14:45] LABS: Partial Thromboplastin Time 25.8 sec (22.0-30.0); Prothrombin Time 10.8 sec (9.0-12.0)
--- NOTE | 2022-04-09 14:58 | CT ---
EXAMINATION TYPE: CT brain wo con DATE OF EXAM: 04/09/2022 HISTORY: Dysphasia, Hx TIA. Acute onset neuro deficit. CT DLP: 1127.4 mGycm. Automated Exposure Control for Dose Reduction was Utilized. TECHNIQUE: CT scan of the head is performed without contrast. COMPARISON: None. FINDINGS: There is no acute intracranial hemorrhage or midline shift identified. There is mild to m oderate diffuse ventricular and sulcal prominence consistent with diffuse age-related cerebral atroph y. There is mild to moderate low-attenuation in the periventricular white matter consistent with chr onic small vessel ischemic change. Hyperostosis frontalis is seen. Dependent density lateral aspect right sphenoid sinus favors eccentric mucosal thickening over fluid. Remainder of the paranasal sinus es are clear and globes are intact. Right-sided scleral calcification is present. IMPRESSION: No acute intracranial hemorrhage or midline shift. There is mild to moderate diffuse ce rebral atrophy and chronic small vessel ischemic change noted.
[2022-04-09] MEDS ORDERED: ASPIRIN 325 MG TAB PO STA (15:24)
--- NOTE | 2022-04-09 15:27 | XR ---
EXAMINATION TYPE: XR chest 2V DATE OF EXAM: 04/09/2022 COMPARISON: Chest x-ray June 09, 2020 HISTORY: Altered mental status and weakness. TECHNIQUE: Frontal and lateral views of the chest are obtained. FINDINGS: Overlying Sternal wires and mediastinal clips are redemonstrated. There is no suspicious f ocal air space opacity, pleural effusion, or pneumothorax seen currently. The cardiac silhouette siz e is stable and within normal limits. Old lateral left mid rib fractures again seen. Ovoid dystrophic calcification in the lateral right breast is redemonstrated. IMPRESSION: No acute cardiopulmonary process.
[2022-04-09] MEDS ORDERED: SODIUM CHLORIDE 0.9% 1,000 ML IV SCH (15:30)
--- NOTE | 2022-04-09 16:12 | P.HPIM ---
History of Present Illness H&P Date: 04/09/22 Chief Complaint: slurred speech Patient is a 76-year-old female with past medical history of atrial fibrillation, CAD status post CABG, systolic CHF, hypertension, diabetes, dyslipidemia presenting with brief episode of slurred speech on 04/07/22. She was with her family at that time. The family noted that she had slurred speech for about 15 minutes. Patient did not notice any changes at all, including weakness or numbness. Family did not note any facial droopiness. She claims that she has had this similar episode once previously as well. She denies any palpitations, chest pain, shortness of breath, abdominal pain, fevers, chills, urinary, or bowel issues. She claims that she has been taking her medications as prescribed. In the ED, her blood pressure was 164/74, respiratory vitals were otherwise unremarkable. Her creatinine was mildly elevated at 1.09, and her glucose was at 192. Her troponin was negative. She received aspirin, and IV fluids. Pertinent positives and negatives as discussed in HPI, a complete review of systems was performed and all other systems are negative. Vital signs reviewed General: nontoxic, no distress, appears at stated age Derm: warm, dry Head: atraumatic, normocephalic, symmetric Eyes: EOMI, no lid lag, anicteric sclera, pupils equal round reactive to light ENT: Nose and ears atraumatic Neck: No thyromegaly, trachea midline, supple Mouth: no lip lesion, mucus membranes moist Cardiovascular: S1S2 reg, systolic murmur, no edema Lungs: clear to auscultation bilateral, no rhonchi, no rales, no wheeze, no accessory muscle use Abdominal: soft, nontender to palpation, no guarding, no appreciable organomegaly Ext: no gross muscle atrophy, muscle strength muscle strength 5 out of 5 in all 4 extremities, no contractures Neuro: CN II-XII grossly intact, light touch intact all 4 extremities Psych: Alert, oriented, appropriate affect Assessment/Plan: Slurred speech, resolved Possible TIA -other differentials diagnosis: Hyperglycemia, migraine with aura -CT head shows no acute changes, chronic small vessel ischemic changes -EKG shows sinus rhythm -A1c, TSH, lipid panel pending -Continue aspirin and statin -Carotid Dopplers, echo -Neurology consultation Chronic conditions: Atrial fibrillation Diabetes - also added sliding scale, hold metformin Hypertension Dyslipidemia CAD Systolic CHF - Continue home medications The patient is admitted with an anticipated less than 2 midnight stay for evaluation of slurred speech. Surrogate decision-maker: Daughter CODE STATUS: DO NOT RESUSCITATE/DO NOT INTUBATE DVT prophylaxis: eliquis Anticipated discharge date: 04/10/[address]: Home A total of 45 minutes was spent on the care of this complex patient more than 50% of the time was spent in counseling and care coordination. Past Medical History Past Medical History: Cancer, CVA/TIA, Diabetes Mellitus, Hyperlipidemia, Hypertension, Respiratory Disorder Additional Past Medical History / Comment(s): See Dr Mckee's H&P. Hx breast cancer in 2005 with lumpectomy and radiation. BILATERAL PLEURAL EFFUSIONS. TIA November 01 History of Any Multi-Drug Resistant Organisms: None Reported Past Surgical History: Breast Surgery, Coronary Bypass/CABG, Hernia Repair, Orthopedic Surgery, Tubal Ligation Additional Past Surgical History / Comment(s): Surgery for broken arm, CABG X 2, ZELAYA to the LAD, SVG to the OM. POSSIBLE BILATERAL THORACENTESIS. Ablation, EPS, cardioversion., Past Anesthesia/Blood Transfusion Reactions: No Reported Reaction Past Psychological History: Depression Past Alcohol Use History: Rare Past Drug Use History: None Reported - Past Family History Sister(s) Family Medical History: Cancer, Pulmonary Embolus Additional Family Medical History / Comment(s): Lung cancer. Medications and Allergies Home Medications Medication Instructions Recorded Confirmed Type Losartan Potassium [Cozaar] 25 mg PO HS 03/31/18 06/06/20 History Apixaban [Eliquis] 5 mg PO BID #60 tab 04/03/18 06/06/20 Rx metFORMIN HCL [Glucophage] 1,000 mg PO BID 05/19/18 06/06/20 History Rosuvastatin [Crestor] 10 mg PO HS 12/06/18 06/06/20 History Slow-Mag 71.5mg 71.5 mg PO BID 12/06/18 06/06/20 History Venlafaxine HCl ER [Effexor XR] 150 mg PO DAILY 12/06/18 06/06/20 History Metoprolol Succinate [Toprol XL] 25 mg PO DAILY #0 12/16/18 06/06/20 Rx Insulin Detemir [Levemir Flextouch 20 unit SQ HS 06/06/20 06/06/20 History Pen] Furosemide [Lasix] 40 mg PO DAILY #90 tab 06/14/20 Rx Spironolactone [Aldactone] 12.5 mg PO DAILY #90 tab 06/14/20 Rx Allergies Allergy/AdvReac Type Severity Reaction Status Date / Time Sulfa (Sulfonamide Allergy Rash/Hives Verified 04/09/22 12:46 Antibiotics) sulfamethoxazole Allergy Rash/Hives Verified 04/09/22 12:46 [From Bactrim] trimethoprim [From Bactrim] Allergy Rash/Hives Verified 04/09/22 12:46 Physical Exam Vitals: Vital Signs Temp Pulse Resp BP Pulse Ox 04/09/22 12:42 98.4 F 85 16 164/74 93 L Intake and Output 04/09/22 04/09/22 04/09/22 06:59 14:59 22:59 Other: Weight 68.039 kg Results CBC & Chem 7: 04/09/22 14:15 04/09/22 14:15 Labs: Abnormal Lab Results - Last 24 Hours (Table) 04/09/22 04/09/22 Range/Units 14:15 14:15 Lymphocytes # 0.9 L (1.0-4.8) k/uL Carbon Dioxide 20 L (22-30) mmol/L BUN 27 H (7-17) mg/dL Creatinine 1.09 H (0.52-1.04) mg/dL Glucose 192 H (74-99) mg/dL
[2022-04-09] MEDS ORDERED: DEXTROSE 50% SYRINGE 50 ML IVP PRN ×2 (16:19)
--- NOTE | 2022-04-09 16:28 | US ---
EXAMINATION TYPE: US carotid duplex BILAT DATE OF EXAM: 04/09/2022 COMPARISON: Carotid ultrasound 2018 CLINICAL HISTORY: Stenosis. HTN controlled with meds. Hx tia's. Slurring x 2 days ago TECHNIQUE: Carotid duplex ultrasound examination. Indirect Doppler criteria was utilized. FINDINGS: EXAM MEASUREMENTS: RIGHT: Peak Systolic Velocity (PSV) cm/sec ----- Right CCA: 57.5 ----- Right ICA: 82.3 ----- Right ECA: 71.3 ICA/CCA ratio: 1.4 RIGHT: End Diastole cm/sec ----- Right CCA: 8.6 ----- Right ICA: 13.1 ----- Right ECA: 9.8 LEFT: Peak Systolic Velocity (PSV) cm/sec ----- Left CCA: 85.6 ----- Left ICA: 139.8 ----- Left ECA: 100.8 ICA/CCA ratio: 1.6 LEFT: End Diastole cm/sec ----- Left CCA: 13.1 ----- Left ICA: 25.4 ----- Left ECA: 0.0 VERTEBRALS (direction of flow): Right Vertebral: Antegrade Left Vertebral: Antegrade Rhythm: Arrhythmia EGG WORKER NOTES: No significant stenosis seen. Plaque and wall thickening seen bilaterally. [place] kimmy distal left ICA velocity. Grayscale images redemonstrate moderate to severe shadowing plaque bilaterally. Increased peak systol ic velocity left internal carotid artery without abnormal end-diastolic velocity and ratio. IMPRESSION: Moderate to severe atherosclerotic changes bilaterally redemonstrated. No hemodynamicall y significant stenosis in either internal carotid artery clearly seen however. Criteria for Assigning % of Stenosis / Diameter reduction (Estimation based on the indirect measurements of the internal carotid artery velocities (ICA PSV). 1. Normal (no stenosis)=ICA PSV < 125 cm/s: ratio < 2.0: ICA EDV<40 cm/s. 2. Less than 50% stenosis=ICA PSV < 125 cm/s: ratio < 2.0: ICA EDV<40 cm/s. 3. 50 to 69% stenosis=ICA PSV of 125 to 230 cm/s: ration 2.0 ? 4.0: ICA EDV 40-100 cm/s. 4. Greater than 70% stenosis to near occlusion= ICA PSV > 230 cm/s: ratio > 4.0: ICA EDV > 100 cm/s. 5. Near occlusion= ICA PSV velocities may be low or undetectable: variable ratio and ICA EDV. 6. Total occlusion=unable to detect flow.
[2022-04-09] MEDS: INSULIN ASPART (NovoLOG) 100 UNIT/ML VIAL SQ SCH ×2 (19:08→21:49)
[2022-04-09] MEDS ORDERED: LOSARTAN 25 MG TAB PO SCH (21:00)
[2022-04-09] MEDS ORDERED: INSULIN DETEMIR (LEVEMIR) 100 UNIT/ML SYR SQ SCH (21:00)
[2022-04-09] MEDS ORDERED: SLOW MAG PO SCH (21:00)
[2022-04-09 21:23] LABS: Glucose,Whole Blood 210 mg/dL (70-110)
[2022-04-09] MEDS: APIXABAN 5 MG TAB PO SCH (21:48)
[2022-04-10] MEDS: INSULIN ASPART (NovoLOG) 100 UNIT/ML VIAL SQ SCH ×2 (05:52→12:06)
[2022-04-10 05:53] LABS: Glucose,Whole Blood 120 mg/dL (70-110)
[2022-04-10] MEDS ORDERED: VENLAFAXINE HCL ER 75 MG CAP PO SCH (09:00)
[2022-04-10] MEDS ORDERED: ATORVASTATIN 20 MG TAB PO SCH (09:00)
[2022-04-10] MEDS ORDERED: ASPIRIN 81 MG PO SCH (09:00)
[2022-04-10] MEDS ORDERED: ASPIRIN 325 MG TAB PO SCH (09:00)
[2022-04-10] MEDS ORDERED: VENLAFAXINE HCL ER 150 MG CAP PO SCH (09:00)
[2022-04-10] MEDS ORDERED: METOPROLOL SUCCINATE (ER) 25 MG TAB.ER.24H PO SCH (09:00)
[2022-04-10] MEDS: APIXABAN 5 MG TAB PO SCH (09:08)
[2022-04-10 10:54] LABS: African American GFR (CKD) 66 (>60 ml/min/1.73 sqM); Anion Gap 15 mmol/L; Blood Urea Nitrogen 25 mg/dL (7-17); Calcium 9.5 mg/dL (8.4-10.2); Carbon Dioxide 21 mmol/L (22-30); Chloride 104 mmol/L (98-107); Glucose 171 mg/dL (74-99); Non-African American GFR(CKD) 57 (>60 ml/min/1.73 sqM); Sodium 140 mmol/L (137-145)
[2022-04-10 11:55] LABS: Glucose,Whole Blood 233 mg/dL (70-110)
--- NOTE | 2022-04-10 12:12 | CA ---
Transthoracic Echo Report Name: Pricila Acuña Age: 76 Gender: F : 1945 Exam Date: 04/10/2022 08:24 Exam Location: Monitor Echo Ht (in): 64 Wt (lb): 150 Ordering Physician: Jeff Aguilera MD Attending/Referring Phys: [id number], Ale Rac Specialist Madelaine Dobbins RDCS Procedure CPT: Indications: Thrombus Cardiac Hx: Technical Quality: Good Contrast 1: Total Dose (mL): Contrast 2: Total Dose (mL): MEASUREMENTS (Male / Female) Normal Values 2D ECHO LV Diastolic Diameter PLAX 4.4 cm 4.2 - 5.9 / 3.9 - 5.3 cm LV Systolic Diameter PLAX 2.7 cm IVS Diastolic Thickness 1.3 cm 0.6 - 1.0 / 0.6 - 0.9 cm LVPW Diastolic Thickness 1.4 cm 0.6 - 1.0 / 0.6 - 0.9 cm LV Relative Wall Thickness 0.6 RV Internal Dim ED PLAX 3.5 cm LVOT Diameter 2.1 cm LA Systolic Diameter LX 4.7 cm 3.0 - 4.0 / 2.7 - 3.8 cm LA Volume 83.3 cm??? 18 - 58 / 22 - 52 cm??? M-MODE Aortic Root Diameter MM 3.7 cm MV E Point Septal Separation 0.8 cm AV Cusp Separation MM 0.8 cm DOPPLER AV Peak Velocity 273.1 cm/s AV Peak Gradient 29.8 mmHg AV Mean Velocity 179.9 cm/s AV Mean Gradient 15.0 mmHg AV Velocity Time Integral 56.4 cm AI Peak Velocity 387.5 cm/s AI Peak Gradient 60.1 mmHg AI Pressure Half Time 480.7 ms LVOT Peak Velocity 114.0 cm/s LVOT Peak Gradient 5.2 mmHg AV Area Cont Eq pk 1.4 cm??? MV Area PHT 3.6 cm??? Mitral E Point Velocity 118.7 cm/s Mitral A Point Velocity 54.6 cm/s Mitral E to A Ratio 2.2 MV Deceleration Time 212.6 ms MV E' Velocity 3.4 cm/s Mitral E to MV E' Ratio 35.1 TR Peak Velocity 309.7 cm/s TR Peak Gradient 38.4 mmHg Right Ventricular Systolic Press 43.4 mmHg FINDINGS Left Ventricle Left ventricular ejection fraction is estimated at 55-60 %. Left ventricular cavity size normal. Moderate concentric left ventricular hypertrophy. Right Ventricle Mild right ventricular dilatation. Mild pulmonary hypertension. Right Atrium Normal right atrial size. Left Atrium Moderately increased left atrial diameter. Severely increased left atrial volume. Mildly increased left atrial area. No evidence for an atrial septal defect. Mitral Valve Mitral valve thickened. Mild mitral regurgitation. Aortic Valve Aortic valve sclerosis. Mild aortic stenosis with a peak gradient of 30 mmHg and a mean gradient of 15 mmHg. Mild aortic regurgitation. Tricuspid Valve Structurally normal tricuspid valve. Mild tricuspid regurgitation. Pulmonic Valve Trace pulmonic regurgitation. Pericardium Normal pericardium. No pericardial effusion. Aorta Normal size aortic root and proximal ascending aorta. CONCLUSIONS 1. Normal size and systolic function with moderate concentric left ventricle hypertrophy 2. Heavily calcified aortic valve with mild aortic regurgitation and mild stenosis 3. Mild mitral regurgitation Previewed by: Dr. Anthony Sampson MD (Electronically Signed) Final Date: 10 April 2022 12:11
[2022-04-10 12:52] VITALS: TEMP 98.2
--- NOTE | 2022-04-10 13:11 | P.CNNES ---
History of Present Illness Consult date: 04/10/22 Requesting physician: Jeff Aguilera Reason for Consult: TIA History of Present Illness: Patient is a 76-year-old right-handed female came to the hospital yesterday at 12:40 PM for a possible TIA. Patient states that on Saturday, 2 days prior to arrival, she was playing with her granddaughter, then her nephew noticed that she was slurring her words. It did not last too long, only about 5 minutes. There was no associated facial droop, visual symptoms, headache or any symptoms related to the extremities. Patient's nephew discussed with her sister the next day, and they decided to come to the ER. In the ER patient had no symptoms. Vital signs on arrival blood pressure 164/74, pulse rate 85 temperature 98.4. Blood test shows normal CBC, PT/PTT, normal electrolytes, BU and 27, creatinine 1.09. Hepatic panel is normal, troponin negative. Patient's last hemoglobin A1c 6.9 on 12/16/2018. CT head showed no acute intracranial hemorrhage or midline shift. There is mild to moderate diffuse cerebral atrophy and chronic small vessel ischemic change. Carotid Doppler revealed moderate severe atherosclerotic changes bilaterally redemonstrated. No hemodynamically significant stenosis in either ICA clearly seen however. Antegrade flow in both vertebral arteries. EKG shows sinus rhythm. Chest x-ray showed no acute cardiopulmonary process. Patient states that she had history of TIA 4 years ago, when she was taking her granddaughter to the college, when while talking to her she started speaking gibberish. The symptoms lasted for half an hour. She went to [facility], diagnosed with TIA. Patient has history of diabetes for 15 years, hypertension. She has peripheral neuropathy involving her feet, like wearing socks. He also has some paresthesias of the fingertips. She has history of bypass surgery. She has smoked tobacco only for 3 years at age 17. Denies any alcohol use. She has history of atrial fibrillation for which she had undergone ablation 3 in the past. Patient's home medications include Eliquis 5 mg twice a day, losartan 25 mg, metformin 1000 mg twice a day, Effexor XR 150 mg daily, Crestor 10 mg, metoprolol, insulin and venlafaxine. Patient does not take any antiplatelet medication besides Eliquis. Review of Systems Constitutional: Denies chills, Denies fever Eyes: denies blurred vision, denies pain Ears, nose, mouth and throat: Denies headache, Denies sore throat Cardiovascular: Denies chest pain, Denies shortness of breath Respiratory: Denies cough Gastrointestinal: Denies abdominal pain, Denies diarrhea, Denies nausea, Denies vomiting Genitourinary: Denies dysuria, Denies hematuria Musculoskeletal: Denies myalgias Integumentary: Denies pruritus, Denies rash Neurological: Reports as per HPI Psychiatric: Denies anxiety, Denies depression Endocrine: Denies fatigue, Denies weight change Hematologic/Lymphatic: Denies easy bruising Allergic/Immunologic: Denies persistent infections Past Medical History Past Medical History: Atrial Fibrillation, Cancer, CVA/TIA, Diabetes Mellitus, Hyperlipidemia, Hypertension, Respiratory Disorder Additional Past Medical History / Comment(s): See Dr Mckee's H&P. Hx breast cancer in 2005 with lumpectomy and radiation. BILATERAL PLEURAL EFFUSIONS. TIA November 01 History of Any Multi-Drug Resistant Organisms: None Reported Past Surgical History: Breast Surgery, Coronary Bypass/CABG, Hernia Repair, Orthopedic Surgery, Tubal Ligation Additional Past Surgical History / Comment(s): Surgery for broken arm, CABG X 2, ZELAYA to the LAD, SVG to the OM. POSSIBLE BILATERAL THORACENTESIS. Ablation, EPS, cardioversion., Past Anesthesia/Blood Transfusion Reactions: No Reported Reaction Past Psychological History: Depression Smoking Status: Former smoker Past Alcohol Use History: Rare Additional Past Alcohol Use History / Comment(s): Quit smoking at 21 yrs of age. Past Drug Use History: None Reported - Past Family History Sister(s) Family Medical History: Cancer, Pulmonary Embolus Additional Family Medical History / Comment(s): Lung cancer. Medications and Allergies Home Medications Medication Instructions Recorded Confirmed Type Losartan Potassium [Cozaar] 25 mg PO HS 03/31/18 04/09/22 History Apixaban [Eliquis] 5 mg PO BID #60 tab 04/03/18 04/09/22 Rx metFORMIN HCL [Glucophage] 1,000 mg PO BID 05/19/18 04/09/22 History Slow-Mag 71.5mg 143 mg PO BID 12/06/18 04/09/22 History Venlafaxine HCl ER [Effexor XR] 150 mg PO DAILY 12/06/18 04/09/22 History Metoprolol Succinate [Toprol XL] 25 mg PO DAILY #0 12/16/18 04/09/22 Rx Insulin Detemir [Levemir Flextouch 20 unit SQ HS 06/06/20 04/09/22 History Pen] Venlafaxine HCl [Effexor XR] 75 mg PO DAILY 04/09/22 04/09/22 History Aspirin 81 mg PO DAILY 30 Days #30 tab 04/10/22 Rx Atorvastatin [Lipitor] 20 mg PO DAILY 30 Days #30 tab 04/10/22 Rx Allergies Allergy/AdvReac Type Severity Reaction Status Date / Time Sulfa (Sulfonamide Allergy Rash/Hives Verified 04/09/22 16:25 Antibiotics) sulfamethoxazole Allergy Rash/Hives Verified 04/09/22 16:25 [From Bactrim] trimethoprim [From Bactrim] Allergy Rash/Hives Verified 04/09/22 16:25 Physical Examination - Vital Signs Vital Signs: Vital Signs Temp Pulse Pulse Resp BP BP Pulse Ox 04/10/22 03:40 55 L 16 102/60 97 04/09/22 23:30 63 18 106/64 94 L 04/09/22 20:51 97.7 F 68 16 133/70 97 04/09/22 19:21 65 18 133/61 94 L 04/09/22 16:39 77 16 131/80 95 04/09/22 12:42 98.4 F 85 16 164/74 93 L Intake and Output 04/09/22 04/10/22 04/10/22 22:59 06:59 14:59 Other: # Voids 1 0 Weight 68.039 kg Patient is an elderly female, in no acute distress. Patient is alert awake oriented to time place and person. Speech and language functions are normal. Patient can name and repeat very well. No aphasia or dysarthria. Attention, concentration and fund of knowledge is adequate. On cranial nerve examination, pupils are equal, round and reacting to light, visual lemos are full on confrontation, with no neglect on double simultaneous stimulation. Extraocular muscles are intact with no nystagmus. Face is symmetric, tongue protrudes to the midline. Palatal elevation and sensation normal, hearing and shoulder shrug normal, facial sensation normal. On muscle strength testing, there is no pronator drift and the strength is normal in arms and legs distally and proximally, except right deltoid which is weak from previous broken shoulder. Deep tendon reflexes are symmetric biceps 1, brachioradialis 1, knees 1+, ankles trace and plantars are downgoing bilaterally. Sensory to touch is equal with no neglect on double simultaneous stimulation. Cerebellar function showed no ataxia for [id number] testing. No dysdiadochokinesia. No ataxia for [id number] testing on either side. Tone and bulk of muscles normal. Gait deferred.. On general examination, there is prominent murmur at the base of hard. Possible radiation to bilateral carotid versus carotid bruit. S1 and S2 audible. Chest is clear on consultation. Abdomen is soft nontender. No organomegaly, bowel sounds present. Peripheral pulses are present. No edema. Results - Laboratory Findings CBC and BMP: 04/09/22 14:15 04/10/22 09:22 Abnormal Lab Findings: Abnormal Labs 04/09/22 04/09/22 04/09/22 14:15 14:15 21:21 Lymphocytes # 0.9 L Carbon Dioxide 20 L BUN 27 H Creatinine 1.09 H Glucose 192 H POC Glucose (mg/dL) 210 H 04/10/22 05:51 Lymphocytes # Carbon Dioxide BUN Creatinine Glucose POC Glucose (mg/dL) 120 H Assessment and Plan Assessment: * TIA, symptoms resolved within 5 minutes. * Atrial fibrillation, on long-term anticoagulation with Eliquis * Atherosclerotic carotid disease, without significant stenosis. * Diabetes * Hypertension * Coronary artery disease Plan: * Patient had a TIA 3 days ago, that lasted for about 5 minutes. Her symptoms have completely resolved. NIH stroke scale is 0. * No need for MRI, as the yield is extremely low. Results will not change the management. * Carotid Doppler revealed moderate severe atherosclerotic changes bilaterally redemonstrated. No hemodynamically significant stenosis in either ICA clearly seen however. Antegrade flow in both vertebral arteries. * Suggest starting aspirin 81 mg daily as well for stroke prevention related to atherosclerotic carotid disease. (If no medical contraindication) * 2-D echo revealed normal size and systolic function with moderate concentric LVH. EF is 55-60%. Heavily calcified aortic valve with mild aortic re gurgitation and mild stenosis. Mild MR. * Hemoglobin A1c 7.9. Suggest optimizing control of diabetes to target A1c <7.0 * Lipid panel with cholesterol 175, LDL 78, HDL 44 triglycerides 262. Continue Lipitor 20 mg daily. Target LDL <70. * Continue Eliquis 5 mg twice a day. * Neurologically clear otherwise.
--- NOTE | 2022-04-10 13:41 | P.GSCN ---
History of Present Illness Consult date: 04/10/22 Reason for Consult: Carotid stenosis Requesting physician: Remington Ayers History of present illness: This is a pleasant 76-year-old female who was recommended to come to the emergency department by her daughter for evaluation due to reported difficulty and slurring of her speech on Saturday, which she states lasted about 5 minutes. She states once her other daughter was notified she brought her into the emergency department yesterday for evaluation. She has a past medical history including breast cancer, TIA, diabetes mellitus, hyperlipidemia, hypertension, coronary artery disease, and atrial fibrillation. Patient denies any other focal deficits. No further difficulty with her speech. She underwent a CT of the brain that showed no acute intracranial hemorrhage or midline shift. There is mild to moderate diffuse cerebral atrophy and chronic small vessel ischemic change noted. She then underwent a carotid ultrasound that reported moderate to severe arthrosclerotic changes bilaterally redemonstrated no hemodynamically significant stenosis in either internal carotid artery clearly seen. Vascular surgery was consulted for carotid artery disease. Patient is again stating she has no difficulty with her speech, no change in her vision, no difficulty with swallowing, tongue is protruding midline, she has no weakness in her upper or lower extremities. She denies any chest pain, shortness of breath, abdominal pain, nausea, vomiting or fevers or chills. Patient was on Eliquis for atrial fibrillation, rosuvastatin 10 mg daily. She was started on aspirin on admission. Review of Systems A 14 point review systems was completed all pertinent positives and negatives as stated in the HPI. Past Medical History Past Medical History: Atrial Fibrillation, Cancer, CVA/TIA, Diabetes Mellitus, Hyperlipidemia, Hypertension, Respiratory Disorder Additional Past Medical History / Comment(s): See Dr Mckee's H&P. Hx breast cancer in 2005 with lumpectomy and radiation. BILATERAL PLEURAL EFFUSIONS. TIA November 01 History of Any Multi-Drug Resistant Organisms: None Reported Past Surgical History: Breast Surgery, Coronary Bypass/CABG, Hernia Repair, Orthopedic Surgery, Tubal Ligation Additional Past Surgical History / Comment(s): Surgery for broken arm, CABG X 2, ZELAYA to the LAD, SVG to the OM. POSSIBLE BILATERAL THORACENTESIS. Ablation, EPS, cardioversion., Past Anesthesia/Blood Transfusion Reactions: No Reported Reaction Past Psychological History: Depression Smoking Status: Former smoker Past Alcohol Use History: Rare Additional Past Alcohol Use History / Comment(s): Quit smoking at 21 yrs of age. Past Drug Use History: None Reported - Past Family History Sister(s) Family Medical History: Cancer, Pulmonary Embolus Additional Family Medical History / Comment(s): Lung cancer. Medications and Allergies Home Medications Medication Instructions Recorded Confirmed Type Losartan Potassium [Cozaar] 25 mg PO HS 03/31/18 04/09/22 History Apixaban [Eliquis] 5 mg PO BID #60 tab 04/03/18 04/09/22 Rx metFORMIN HCL [Glucophage] 1,000 mg PO BID 05/19/18 04/09/22 History Rosuvastatin [Crestor] 10 mg PO DAILY 12/06/18 04/09/22 History Slow-Mag 71.5mg 143 mg PO BID 12/06/18 04/09/22 History Venlafaxine HCl ER [Effexor XR] 150 mg PO DAILY 12/06/18 04/09/22 History Metoprolol Succinate [Toprol XL] 25 mg PO DAILY #0 12/16/18 04/09/22 Rx Insulin Detemir [Levemir Flextouch 20 unit SQ HS 06/06/20 04/09/22 History Pen] Venlafaxine HCl [Effexor XR] 75 mg PO DAILY 04/09/22 04/09/22 History Allergies Allergy/AdvReac Type Severity Reaction Status Date / Time Sulfa (Sulfonamide Allergy Rash/Hives Verified 04/09/22 16:25 Antibiotics) sulfamethoxazole Allergy Rash/Hives Verified 04/09/22 16:25 [From Bactrim] trimethoprim [From Bactrim] Allergy Rash/Hives Verified 04/09/22 16:25 Surgical - Exam Vital Signs Temp Pulse Resp BP Pulse Ox 98.4 F 85 16 164/74 93 L 04/09/22 12:42 04/09/22 12:42 04/09/22 12:42 04/09/22 12:42 04/09/22 12:42 General appearance: The patient is alert, oriented, appears in no acute distress. HET: Head is normocephalic and atraumatic. Pupils are equal and reactive. Neck: Supple without lymphadenopathy. Trachea midline. No audible carotid br uit. Heart: Regular rate and rhythm. Lungs: Clear to auscultation bilaterally. Abdomen: Soft, nontender, nondistended. Extremities: Normal skin color and turgor. Palpable bilateral radial, PT and DP pulses Neurological: No focal deficits. Strength and sensation are grossly intact. Results - Labs 04/09/22 14:15 04/10/22 09:22 Abnormal Lab Results - Last 24 Hours (Table) 04/09/22 04/09/22 04/09/22 Range/Units 14:15 14:15 21:21 Lymphocytes # 0.9 L (1.0-4.8) k/uL Carbon Dioxide 20 L (22-30) mmol/L BUN 27 H (7-17) mg/dL Creatinine 1.09 H (0.52-1.04) mg/dL Glucose 192 H (74-99) mg/dL POC Glucose (mg/dL) 210 H (70-110) mg/dL 04/10/22 Range/Units 05:51 Lymphocytes # (1.0-4.8) k/uL Carbon Dioxide (22-30) mmol/L BUN (7-17) mg/dL Creatinine (0.52-1.04) mg/dL Glucose (74-99) mg/dL POC Glucose (mg/dL) 120 H (70-110) mg/dL Diabetes panel 04/09/22 Range/Units 14:15 Sodium 139 (137-145) mmol/L Potassium 4.9 (3.5-5.1) mmol/L Chloride 102 (98-107) mmol/L Carbon Dioxide 20 L (22-30) mmol/L BUN 27 H (7-17) mg/dL Creatinine 1.09 H (0.52-1.04) mg/dL Glucose 192 H (74-99) mg/dL Calcium 9.3 (8.4-10.2) mg/dL AST 18 (14-36) U/L ALT 17 (4-34) U/L Alkaline Phosphatase 63 (38-126) U/L Total Protein 6.7 (6.3-8.2) g/dL Albumin 4.5 (3.5-5.0) g/dL Calcium panel 04/09/22 Range/Units 14:15 Calcium 9.3 (8.4-10.2) mg/dL Albumin 4.5 (3.5-5.0) g/dL Pituitary panel 04/09/22 Range/Units 14:15 Sodium 139 (137-145) mmol/L Potassium 4.9 (3.5-5.1) mmol/L Chloride 102 (98-107) mmol/L Carbon Dioxide 20 L (22-30) mmol/L BUN 27 H (7-17) mg/dL Creatinine 1.09 H (0.52-1.04) mg/dL Glucose 192 H (74-99) mg/dL Calcium 9.3 (8.4-10.2) mg/dL Adrenal panel 04/09/22 Range/Units 14:15 Sodium 139 (137-145) mmol/L Potassium 4.9 (3.5-5.1) mmol/L Chloride 102 (98-107) mmol/L Carbon Dioxide 20 L (22-30) mmol/L BUN 27 H (7-17) mg/dL Creatinine 1.09 H (0.52-1.04) mg/dL Glucose 192 H (74-99) mg/dL Calcium 9.3 (8.4-10.2) mg/dL Total Bilirubin 0.5 (0.2-1.3) mg/dL AST 18 (14-36) U/L ALT 17 (4-34) U/L Alkaline Phosphatase 63 (38-126) U/L Total Protein 6.7 (6.3-8.2) g/dL Albumin 4.5 (3.5-5.0) g/dL Assessment and Plan Assessment: 1. Difficulty with speech, symptoms resolved 3 days ago. Possible TIA 2. No hemodynamically significant internal carotid artery stenosis 3. History of atrial fibrillation on Eliquis 4. History of diabetes mellitus 5. History of hypertension 6. History of hyperlipidemia 7. History of coronary artery disease Plan: 1. Continue current medications 2. Patient may follow up outpatient for carotid artery disease surveillance 3. There is no indication for any vascular surgical intervention 4. Continue with recommendations from neurology Thank you for this consultation, we will sign off at this time. The impression and plan of care has been dictated as directed. I performed a history and examination of this patient, discussed the same with the dictator. I agree with the dictator's note ,documented as a scribe. Any additional findings or plans will be noted.
--- NOTE | 2022-04-10 15:37 | P.DS ---
Providers Date of admission: 04/09/22 15:24 Attending physician: Dallas Coffman MD Consults: 04/09/22 15:24 Consult Physician Routine Consulting Provider: Dahiana Majano Consult Reason/Comments: TIA Do you want consulting provider notified?: Yes 04/10/22 07:53 Consult Physician Routine Consulting Provider: Deshawn Hirsch Consult Reason/Comments: Carotid artery disease Do you want consulting provider notified?: Yes Primary care physician: Pranav Doe MD Hospital Course: Admitting diagnosis: Slurred speech Discharge diagnoses: TIA History of atrial fibrillation Diabetes mellitus controlled at 6.9% Hypertension controlled Dyslipidemia Coronary artery disease Systolic congestive heart failure compensated Hospital course: Patient is a 76-year-old female with past medical history of atrial fibrillation, CAD status post CABG, systolic CHF, hypertension, diabetes, dyslipidemia presenting with brief episode of slurred speech on 04/07/22. She was with her family at that time. The family noted that she had slurred speech for about 15 minutes. Patient did not notice any changes at all, including weakness or numbness. Family did not note any facial droopiness. She claims that she has had this similar episode once previously as well. She denies any palpitations, chest pain, shortness of breath, abdominal pain, fevers, chills, urinary, or bowel issues. She claims that she has been taking her medications as prescribed. In the ED, her blood pressure was 164/74, respiratory vitals were otherwise unremarkable. Her creatinine was mildly elevated at 1.09, and her glucose was at 192. Her troponin was negative. She received aspirin, and IV fluids. Physical exam General: [non toxic], [no distress], [appears at stated age] Derm: [warm], [dry] Head: [atraumatic], [normocephalic], [symmetric] Eyes: [EOMI], [no lid lag], [anicteric sclera] Mouth: [no lip lesion], [mucus membranes moist] Cardiovascular: [S1S2 reg], [no murmur], [positive posterior tibial pulse bilateral], Lungs: [CTA bilateral], [no rhonchi, no rales] , [no accessory muscle use] Abdominal: [soft], [ nontender to palpation], [no guarding], [no appreciable organomegaly] Ext: [no gross muscle atrophy], [no edema], [no contractures] Neuro: [ CN II-XI grossly intact], [no focal neuro deficits] Psych: [Alert], [oriented], [appropriate affect] Assessment: Slurred speech, resolved likely due to TIA -CT head shows no acute changes, chronic small vessel ischemic changes -EKG shows sinus rhythm -Hemoglobin A1c was 6.9% -TSH was within normal limits -Continue aspirin and statin -Carotid Dopplers revealed moderate to severe carotid artery stenosis Vascular surgery did see the patient and recommended outpatient follow-up -Neurology did see the patient and recommended increased statin to 20 mg by mouth daily Chronic conditions: Atrial fibrillation Diabetes - also added sliding scale, hold metformin Hypertension Dyslipidemia CAD Systolic CHF compensated - Continue home medications Diet diabetic Condition fair Disposition home with home care Activity as tolerated Follow-up with PCP in 3-7 days Follow-up with vascular surgery in 2 weeks Patient Condition at Discharge: Fair Plan - Discharge Summary Discharge Rx Participant: Yes New Discharge Prescriptions: New Aspirin 81 mg PO DAILY 30 Days #30 tab Atorvastatin [Lipitor] 20 mg PO DAILY 30 Days #30 tab Continue Losartan Potassium [Cozaar] 25 mg PO HS Apixaban [Eliquis] 5 mg PO BID #60 tab metFORMIN HCL [Glucophage] 1,000 mg PO BID Venlafaxine HCl ER [Effexor XR] 150 mg PO DAILY Slow-Mag 71.5mg 143 mg PO BID Metoprolol Succinate [Toprol XL] 25 mg PO DAILY #0 Insulin Detemir [Levemir Flextouch Pen] 20 unit SQ HS Venlafaxine HCl [Effexor XR] 75 mg PO DAILY Discontinued Rosuvastatin [Crestor] 10 mg PO DAILY Discharge Medication List Losartan Potassium [Cozaar] 25 mg PO HS 03/31/18 [History] Apixaban [Eliquis] 5 mg PO BID #60 tab 04/03/18 [Rx] metFORMIN HCL [Glucophage] 1,000 mg PO BID 05/19/18 [History] Slow-Mag 71.5mg 143 mg PO BID 12/06/18 [History] Venlafaxine HCl ER [Effexor XR] 150 mg PO DAILY 12/06/18 [History] Metoprolol Succinate [Toprol XL] 25 mg PO DAILY #0 12/16/18 [Rx] Insulin Detemir [Levemir Flextouch Pen] 20 unit SQ HS 06/06/20 [History] Venlafaxine HCl [Effexor XR] 75 mg PO DAILY 04/09/22 [History] Aspirin 81 mg PO DAILY 30 Days #30 tab 04/10/22 [Rx] Atorvastatin [Lipitor] 20 mg PO DAILY 30 Days #30 tab 04/10/22 [Rx] Follow up Appointment(s)/Referral(s): Pranav Doe MD [Primary Care Provider] - 1-2 days Deshawn Hirsch DO [STAFF PHYSICIAN] - 2 Weeks Discharge Disposition: HOME WITH HOME HEALTH SERVICES
[2022-04-10 16:16] VITALS: BP 120/74; PULSE 61; RESP 18
[2022-04-10 17:04] LABS: Chol/HDL Ratio 3.95 Ratio; LDL Cholesterol,Calculated 78.3 mg/dL (0.0-131.0)
--- NOTE | 2022-05-11 07:19 | CDI ---
Dear Dr. Ayers, Outpatient Documentation Clarification Form Date: 05/11/22 CDS/Kinesiologist Name: Toya Pham Phone: If you have question, contact Fernanda Doe, [employer] Representative @ [phone] Patient Name: Pricila Acuña Admit Date: 04/09/22 Discharge Date: 04/10/22 ATTENTION: HIM Coding Staff appreciate your assistance in clarifying documentation. Please respond to the clarification below the line at the bottom and electronically sign. HIM Coding staff will review the response and follow-up if needed. Please note: Queries are made part of the Legal Health Record. If you have any questions, please contact the author of this message via ITS or call the Hot Top Liner Helper. Please assist in clarifying what the patient primary diagnosis is as there appears to be conflicting documentation. In your discharge summary you document admitting diagnosis a slurred speech. Discharge diagnosis slurred speech "likely" due to TIA. Also you document Carotid Dopplers revealed moderate to severe carotid artery stenosis. In your clinical judgement, please clarify your final diagnosis. _x___TIA ____TIA ruled out ____TIA due to Carotid artery stenosis ____Slurred speech Please document your clarification beneath the line below on this form Thank you for your kind consideration. MTDD
== END 2022-04-10 16:43 | disposition home health service (06) ==
LOC: EC 12:40 → 6NMEDSUR 15:24 → 3SCARD 17:50
PROVIDERS: ADMIT Family Medicine; ATTEND Family Medicine
DX: G45.9 Transient cerebral ischemic attack, unspecified (principal); I11.0 Hypertensive heart disease with heart failure; I50.22 Chronic systolic (congestive) heart failure; E78.5 Hyperlipidemia, unspecified; E11.65 Type 2 diabetes mellitus with hyperglycemia; I48.91 Unspecified atrial fibrillation; I25.10 Atherosclerotic heart disease of native coronary artery without angina pectoris; E11.42 Type 2 diabetes mellitus with diabetic polyneuropathy; I65.23 Occlusion and stenosis of bilateral carotid arteries; I08.0 Rheumatic disorders of both mitral and aortic valves; F32.A Depression, unspecified; Z66 Do not resuscitate; Z79.01 Long term (current) use of anticoagulants; Z79.84 Long term (current) use of oral hypoglycemic drugs; Z79.4 Long term (current) use of insulin; Z79.899 Other long term (current) drug therapy; Z88.1 Allergy status to other antibiotic agents; Z88.2 Allergy status to sulfonamides; Z86.73 Personal history of transient ischemic attack (TIA), and cerebral infarction without residual deficits; Z85.3 Personal history of malignant neoplasm of breast; Z92.3 Personal history of irradiation; Z95.1 Presence of aortocoronary bypass graft; Z98.51 Tubal ligation status; Z98.890 Other specified postprocedural states; Z87.891 Personal history of nicotine dependence; Z80.1 Family history of malignant neoplasm of trachea, bronchus and lung; Z82.49 Family history of ischemic heart disease and other diseases of the circulatory system
CPT/HCPCS: 99285; 36415; 93005; 93306; 97161; 97165; 80061; 80053; 80048; 84443; 84484; 85025; 85610; 85730; 83036; 71046; 93880; 70450; G0378 ×3

== ENCOUNTER 2022-05-13 11:54 | Inpatient (IN) | payer MEDICARE, BC ==
[2022-05-13 12:01] LABS: Glucose,Whole Blood 206 mg/dL (70-110)
--- NOTE | 2022-05-13 12:17 | ED ---
Neuro HPI - General Chief Complaint: Neuro Symptoms/Deficit Stated Complaint: Stroke Time Seen by Provider: 05/13/22 12:00 Source: patient, family, old records reviewed Mode of arrival: wheelchair Limitations: no limitations - History of Present Illness Is the patient presenting with stroke symptoms?: Yes Last Known Well Date: 05/13/22 Last Known Well Time: 12:00 Initial Comments: 76-year-old female with past medical history of A. fib on Eliquis, breast cancer, coronary artery disease status post bypass who presents to the emergency department for slurred speech and left-sided facial droop. Symptoms started 25 minutes prior to hospital arrival. There are eating breakfast with the patient was having significant difficulty getting her words out. Daughter is at bedside also noted that she had some facial droop. She denies any weakness in her extremities. Denies any headache or blurred vision. No recent head trauma. She does have a history of TIAs without residual deficits. Patient was hospitalized 3 days ago with similar complaint. And also makes mention of an event that happened on May 01 that was similar. Event happened in the vascular office however she was discharged home in set of instructed to go to the hospital. After her last hospitalization the patient was instructed to take a baby aspirin for which she has been. MRI was not performed at that. No missed doses of her Eliquis. No other alleviating, precipitating or modifying factors - Related Data Home Medications: Home Medications Medication Instructions Recorded Confirmed Losartan Potassium [Cozaar] 25 mg PO HS 03/31/18 05/13/22 metFORMIN HCL [Glucophage] 1,000 mg PO BID 05/19/18 05/13/22 Slow-Mag 71.5mg 143 mg PO BID 12/06/18 05/13/22 Venlafaxine HCl ER [Effexor XR] 150 mg PO DAILY 12/06/18 05/13/22 Insulin Detemir [Levemir Flextouch 20 unit SQ HS 06/06/20 05/13/22 Pen] Venlafaxine HCl [Effexor XR] 75 mg PO DAILY 04/09/22 05/13/22 Previous Rx's Medication Instructions Recorded Apixaban [Eliquis] 5 mg PO BID #60 tab 04/03/18 Metoprolol Succinate [Toprol XL] 25 mg PO DAILY #0 12/16/18 Atorvastatin [Lipitor] 40 mg PO DAILY #30 tab 05/15/22 Clopidogrel [Plavix] 75 mg PO DAILY #30 tab 05/15/22 Allergies/Adverse Reactions: Allergies Allergy/AdvReac Type Severity Reaction Status Date / Time Sulfa (Sulfonamide Allergy Rash/Hives Verified 05/13/22 13:34 Antibiotics) sulfamethoxazole Allergy Rash/Hives Verified 05/13/22 13:34 [From Bactrim] trimethoprim [From Bactrim] Allergy Rash/Hives Verified 05/13/22 13:34 Review of Systems ROS Statement: Those systems with pertinent positive or pertinent negative responses have been documented in the HPI. ROS Other: All systems not noted in ROS Statement are negative. General Exam Limitations: no limitations General appearance: alert, in no apparent distress Head exam: Present: atraumatic, normocephalic, other (mild droop left lip) Eye exam: Present: normal appearance, PERRL, EOMI. Absent: scleral icterus, conjunctival injection, periorbital swelling ENT exam: Present: normal exam, mucous membranes moist Neck exam: Present: normal inspection. Absent: tenderness, meningismus, lymphadenopathy Respiratory exam: Present: normal lung sounds bilaterally. Absent: respiratory distress, wheezes, rales, rhonchi, stridor Cardiovascular Exam: Present: regular rate, normal rhythm, normal heart sounds. Absent: systolic murmur, diastolic murmur, rubs, gallop, clicks GI/Abdominal exam: Present: soft, normal bowel sounds. Absent: distended, tenderness, guarding, rebound, rigid Extremities exam: Present: normal inspection, full ROM, normal capillary refill. Absent: tenderness, pedal edema, joint swelling, calf tenderness Back exam: Present: normal inspection Neurological exam: Present: alert, oriented X3, CN II-XII intact, other (speech clear) Psychiatric exam: Present: normal affect, normal mood Skin exam: Present: warm, dry, intact, normal color. Absent: rash Stroke MDM - Lab Data Result diagrams: 05/14/22 06:04 05/14/22 06:04 Lab Results 05/13/22 05/13/22 05/13/22 Range/Units 12:00 12:19 12: WBC 6.7 (3.8-10.6) k/uL RBC 3.56 L (3.80-5.40) m/uL Hgb 11.6 (11.4-16.0) gm/dL Hct 32.6 L (34.0-46.0) % MCV 91.5 (80.0-100.0) fL MCH 32.7 (25.0-35.0) pg MCHC 35.8 (31.0-37.0) g/dL RDW 14.6 (11.5-15.5) % Plt Count 173 (150-450) k/uL MPV 8.0 Immature Gran % (Auto) % Absolute Nucleated RBC (0.00-0.00) X 10*3/uL Neutrophils % 70 % Lymphocytes % 15 % Monocytes % 5 % Eosinophils % 6 % Basophils % 1 % Immature Gran # (0.00-0.04) X 10*3/uL Neutrophils # 4.7 (1.3-7.7) k/uL Lymphocytes # 1.0 (1.0-4.8) k/uL Monocytes # 0.4 (0-1.0) k/uL Eosinophils # 0.4 (0-0.7) k/uL Basophils # 0.0 (0-0.2) k/uL NRBC/100 WBC Diff (0.0-0.0) /100 WBCS Poikilocytosis Slight PT (9.0-12.0) sec INR (<1.2) APTT (22.0-30.0) sec Sodium (137-145) mmol/L Potassium (3.5-5.1) mmol/L Chloride (98-107) mmol/L Carbon Dioxide (22-30) mmol/L Anion Gap mmol/L BUN (7-17) mg/dL Creatinine (0.52-1.04) mg/dL Est GFR (CKD-EPI)AfAm (>60 ml/min/1.73 sqM) Est GFR (CKD-EPI)NonAf (>60 ml/min/1.73 sqM) BUN/Creatinine Ratio (12.00-20.00) Ratio Glucose (74-99) mg/dL POC Glucose (mg/dL) 206 H 196 H (70-110) mg/dL POC Glu Racquet Maker Zara Kothari Andrew Calcium (8.4-10.2) mg/dL Total Bilirubin (0.2-1.3) mg/dL AST (14-36) U/L ALT (4-34) U/L Alkaline Phosphatase (38-126) U/L Troponin I (0.000-0.034) ng/mL Total Protein (6.3-8.2) g/dL Albumin (3.5-5.0) g/dL Triglycerides (0.00-149.00) mg/dL Cholesterol (0.00-200.00) mg/dL LDL Cholesterol, Calc (0.0-131.0) mg/dL VLDL Cholesterol, Calc (5.00-40.00) mg/dL HDL Cholesterol (40.00-60.00) mg/dL Cholesterol/HDL Ratio Ratio Urine Color Urine Appearance (Clear) Urine pH (5.0-8.0) Ur Specific [place] (1.001-1.035) Urine Protein (Negative) Urine Glucose (UA) (Negative) Urine Ketones (Negative) Urine Blood (Negative) Urine Nitrite (Negative) Urine Bilirubin (Negative) Urine Urobilinogen (<2.0) mg/dL Ur Leukocyte Esterase (Negative) 05/13/22 05/13/22 05/13/22 Range/Units 12:22 12:22 12:22 WBC (3.8-10.6) k/uL RBC (3.80-5.40) m/uL Hgb (11.4-16.0) gm/dL Hct (34.0-46.0) % MCV (80.0-100.0) fL MCH (25.0-35.0) pg MCHC (31.0-37.0) g/dL RDW (11.5-15.5) % Plt Count (150-450) k/uL MPV Immature Gran % (Auto) % Absolute Nucleated RBC (0.00-0.00) X 10*3/uL Neutrophils % % Lymphocytes % % Monocytes % % Eosinophils % % Basophils % % Immature Gran # (0.00-0.04) X 10*3/uL Neutrophils # (1.3-7.7) k/uL Lymphocytes # (1.0-4.8) k/uL Monocytes # (0-1.0) k/uL Eosinophils # (0-0.7) k/uL Basophils # (0-0.2) k/uL NRBC/100 WBC Diff (0.0-0.0) /100 WBCS Poikilocytosis PT 10.6 (9.0-12.0) sec INR 1.0 (<1.2) APTT 26.0 (22.0-30.0) sec Sodium 139 (137-145) mmol/L Potassium 5.0 (3.5-5.1) mmol/L Chloride 102 (98-107) mmol/L Carbon Dioxide 26 (22-30) mmol/L Anion Gap 11 mmol/L BUN 28 H (7-17) mg/dL Creatinine 1.01 (0.52-1.04) mg/dL Est GFR (CKD-EPI)AfAm 63 (>60 ml/min/1.73 sqM) Est GFR (CKD-EPI)NonAf 54 (>60 ml/min/1.73 sqM) BUN/Creatinine Ratio (12.00-20.00) Ratio Glucose 205 H (74-99) mg/dL POC Glucose (mg/dL) (70-110) mg/dL POC Glu Racquet Maker ID Calcium 9.0 (8.4-10.2) mg/dL Total Bilirubin 0.6 (0.2-1.3) mg/dL AST 19 (14-36) U/L ALT 16 (4-34) U/L Alkaline Phosphatase 76 (38-126) U/L Troponin I <0.012 (0.000-0.034) ng/mL Total Protein 6.9 (6.3-8.2) g/dL Albumin 4.5 (3.5-5.0) g/dL Triglycerides (0.00-149.00) mg/dL Cholesterol (0.00-200.00) mg/dL LDL Cholesterol, Calc (0.0-131.0) mg/dL VLDL Cholesterol, Calc (5.00-40.00) mg/dL HDL Cholesterol (40.00-60.00) mg/dL Cholesterol/HDL Ratio Ratio Urine Color Urine Appearance (Clear) Urine pH (5.0-8.0) Ur Specific [place] (1.001-1.035) Urine Protein (Negative) Urine Glucose (UA) (Negative) Urine Ketones (Negative) Urine Blood (Negative) Urine Nitrite (Negative) Urine Bilirubin (Negative) Urine Urobilinogen (<2.0) mg/dL Ur Leukocyte Esterase (Negative) 05/13/22 05/13/22 05/13/22 Range/Units 14:11 17:09 20:17 WBC (3.8-10.6) k/uL RBC (3.80-5.40) m/uL Hgb (11.4-16.0) gm/dL Hct (34.0-46.0) % MCV (80.0-100.0) fL MCH (25.0-35.0) pg MCHC (31.0-37.0) g/dL RDW (11.5-15.5) % Plt Count (150-450) k/uL MPV Immature Gran % (Auto) % Absolute Nucleated RBC (0.00-0.00) X 10*3/uL Neutrophils % % Lymphocytes % % Monocytes % % Eosinophils % % Basophils % % Immature Gran # (0.00-0.04) X 10*3/uL Neutrophils # (1.3-7.7) k/uL Lymphocytes # (1.0-4.8) k/uL Monocytes # (0-1.0) k/uL Eosinophils # (0-0.7) k/uL Basophils # (0-0.2) k/uL NRBC/100 WBC Diff (0.0-0.0) /100 WBCS Poikilocytosis PT (9.0-12.0) sec INR (<1.2) APTT (22.0-30.0) sec Sodium (137-145) mmol/L Potassium (3.5-5.1) mmol/L Chloride (98-107) mmol/L Carbon Dioxide (22-30) mmol/L Anion Gap mmol/L BUN (7-17) mg/dL Creatinine (0.52-1.04) mg/dL Est GFR (CKD-EPI)AfAm (>60 ml/min/1.73 sqM) Est GFR (CKD-EPI)NonAf (>60 ml/min/1.73 sqM) BUN/Creatinine Ratio (12.00-20.00) Ratio Glucose (74-99) mg/dL POC Glucose (mg/dL) 176 H 246 H (70-110) mg/dL POC Glu Racquet Maker ID Rosas, Melody Morales, Thad Calcium (8.4-10.2) mg/dL Total Bilirubin (0.2-1.3) mg/dL AST (14-36) U/L ALT (4-34) U/L Alkaline Phosphatase (38-126) U/L Troponin I (0.000-0.034) ng/mL Total Protein (6.3-8.2) g/dL Albumin (3.5-5.0) g/dL Triglycerides (0.00-149.00) mg/dL Cholesterol (0.00-200.00) mg/dL LDL Cholesterol, Calc (0.0-131.0) mg/dL VLDL Cholesterol, Calc (5.00-40.00) mg/dL HDL Cholesterol (40.00-60.00) mg/dL Cholesterol/HDL Ratio Ratio Urine Color Light Yellow Urine Appearance Clear (Clear) Urine pH 5.0 (5.0-8.0) Ur Specific [place] 1.050 H (1.001-1.035) Urine Protein Trace H (Negative) Urine Glucose (UA) 2+ H (Negative) Urine Ketones Negative (Negative) Urine Blood Negative (Negative) Urine Nitrite Negative (Negative) Urine Bilirubin Negative (Negative) Urine Urobilinogen <2.0 (<2.0) mg/dL Ur Leukocyte Esterase Negative (Negative) 05/14/22 05/14/22 05/14/22 Range/Units 06:04 06:04 06:28 WBC 6.00 (3.8-10.6) k/uL RBC 3.31 L (3.80-5.40) m/uL Hgb 10.6 L (11.4-16.0) gm/dL Hct 31.3 L (34.0-46.0) % MCV 94.6 (80.0-100.0) fL MCH 32.0 (25.0-35.0) pg MCHC 33.9 (31.0-37.0) g/dL RDW 14.1 (11.5-15.5) % Plt Count 145 (150-450) k/uL MPV 10.3 Immature Gran % (Auto) 0.3 % Absolute Nucleated RBC 0 (0.00-0.00) X 10*3/uL Neutrophils % 66.6 % Lymphocytes % 17.8 % Monocytes % 10.0 % Eosinophils % 5.0 % Basophils % 0.3 % Immature Gran # 0.02 (0.00-0.04) X 10*3/uL Neutrophils # 3.99 (1.3-7.7) k/uL Lymphocytes # 1.07 (1.0-4.8) k/uL Monocytes # 0.60 (0-1.0) k/uL Eosinophils # 0.30 (0-0.7) k/uL Basophils # 0.02 (0-0.2) k/uL NRBC/100 WBC Diff 0 (0.0-0.0) /100 WBCS Poikilocytosis PT (9.0-12.0) sec INR (<1.2) APTT (22.0-30.0) sec Sodium 140 (137-145) mmol/L Potassium 4.6 (3.5-5.1) mmol/L Chloride 103 (98-107) mmol/L Carbon Dioxide 27.9 H (22-30) mmol/L Anion Gap 9.10 L mmol/L BUN 24.7 (7-17) mg/dL Creatinine 1.1 (0.52-1.04) mg/dL Est GFR (CKD-EPI)AfAm 56.5 L (>60 ml/min/1.73 sqM) Est GFR (CKD-EPI)NonAf 48.7 L (>60 ml/min/1.73 sqM) BUN/Creatinine Ratio 22.45 H (12.00-20.00) Ratio Glucose 108 (74-99) mg/dL POC Glucose (mg/dL) 128 H (70-110) mg/dL POC Glu Racquet Maker ID Milton Azaren Calcium 9.2 (8.4-10.2) mg/dL Total Bilirubin (0.2-1.3) mg/dL AST (14-36) U/L ALT (4-34) U/L Alkaline Phosphatase (38-126) U/L Troponin I (0.000-0.034) ng/mL Total Protein (6.3-8.2) g/dL Albumin (3.5-5.0) g/dL Triglycerides 216.00 H (0.00-149.00) mg/dL Cholesterol 169.00 (0.00-200.00) mg/dL LDL Cholesterol, Calc 81.4 (0.0-131.0) mg/dL VLDL Cholesterol, Calc 43.20 H (5.00-40.00) mg/dL HDL Cholesterol 44.40 (40.00-60.00) mg/dL Cholesterol/HDL Ratio 3.81 Ratio Urine Color Urine Appearance (Clear) Urine pH (5.0-8.0) Ur Specific [place] (1.001-1.035) Urine Protein (Negative) Urine Glucose (UA) (Negative) Urine Ketones (Negative) Urine Blood (Negative) Urine Nitrite (Negative) Urine Bilirubin (Negative) Urine Urobilinogen (<2.0) mg/dL Ur Leukocyte Esterase (Negative) - Medical Decision Making Upon arrival patient was placed into room 6. A code stroke was activated. Patient is not a candidate for TPA as she is already on anticoagulation and has had 2 TIAs in the past 3 months. NIH is assessed and is 2. Patient does have left sided facial droop and some slurred speech. She is sent over for CT and CT angiography. Laboratory studies were conducted and a chest x-ray was performed. I spoke with Dr. Manzanares regarding the patients care. CT negative for any acute findings. Discussed the results with the patient. Recommend admission for neurology consultation. Spoke with Dr. Espinal who agreed to admission. I interpreted the EKG myself. It demonstrates a sinus rhythm with a rate of 70. ME interval 181. QRS 78. QTC of 420. Inverted T waves V4 through V6. No acute ST segment elevation 05/13/22 12:46 Past Medical History Past Medical History: Atrial Fibrillation, Cancer, CVA/TIA, Diabetes Mellitus, Hyperlipidemia, Hypertension, Respiratory Disorder Additional Past Medical History / Comment(s): See Dr Mckee's H&P. Hx breast cancer in 2005 with lumpectomy and radiation. BILATERAL PLEURAL EFFUSIONS. TIA November 01 History of Any Multi-Drug Resistant Organisms: None Reported Past Surgical History: Breast Surgery, Coronary Bypass/CABG, Hernia Repair, Orthopedic Surgery, Tubal Ligation Additional Past Surgical History / Comment(s): Surgery for broken arm, CABG X 2, ZELAYA to the LAD, SVG to the OM. POSSIBLE BILATERAL THORACENTESIS. Ablation, EPS, cardioversion., Past Anesthesia/Blood Transfusion Reactions: No Reported Reaction Past Psychological History: Depression Smoking Status: Former smoker Past Alcohol Use History: Rare Past Drug Use History: None Reported - Past Family History Sister(s) Family Medical History: Cancer, Pulmonary Embolus Additional Family Medical History / Comment(s): Lung cancer. Course Vital Signs 05/13/22 05/13/22 05/13/22 11:54 12:34 12:43 Temperature 98.2 F 98.2 F 98.2 F Pulse Rate 65 77 69 Respiratory 18 16 18 Rate Blood Pressure 133/70 163/67 154/75 O2 Sat by Pulse 98 95 97 Oximetry 05/13/22 05/13/22 12:58 13:14 Temperature Pulse Rate 70 79 Respiratory 16 16 Rate Blood Pressure 143/71 137/70 O2 Sat by Pulse 96 97 Oximetry Critical Care Time Critical Care Time: Yes Critical Care Time: 32 minutes Disposition Clinical Impression: TIA (transient ischemic attack), Facial droop, Expressive aphasia Disposition: ADMITTED IP TO THIS [facility] Condition: Stable Is patient prescribed a controlled substance at d/c from ED?: No Time of Disposition: 14:19 Decision to Admit Reason: Admit from EC Decision Date: 05/13/22 Decision Time: 14:19
[2022-05-13 12:21] LABS: Glucose,Whole Blood 196 mg/dL (70-110)
[2022-05-13 12:29] LABS: Basophils % (A) 1 %; Eosinophils # (A) 0.4 k/uL (0-0.7); Eosinophils % (A) 6 %; HCT 32.6 % (34.0-46.0); HGB 11.6 gm/dL (11.4-16.0); Lymphocytes % (A) 15 %; MCH 32.7 pg (25.0-35.0); MCHC 35.8 g/dL (31.0-37.0); MCV 91.5 fL (80.0-100.0); Monocytes # (A) 0.4 k/uL (0-1.0); Monocytes % (A) 5 %; Neutrophils # (A) 4.7 k/uL (1.3-7.7); Neutrophils % (A) 70 %; Platelet Count 173 k/uL (150-450); Poikilocytosis Slight; RBC 3.56 m/uL (3.80-5.40); RDW 14.6 % (11.5-15.5); WBC 6.7 k/uL (3.8-10.6)
[2022-05-13 12:53] LABS: Prothrombin Time 10.6 sec (9.0-12.0)
[2022-05-13 12:54] LABS: Albumin 4.5 g/dL (3.5-5.0); Total Bilirubin 0.6 mg/dL (0.2-1.3); Total Protein 6.9 g/dL (6.3-8.2)
--- NOTE | 2022-05-13 13:11 | XR ---
EXAMINATION TYPE: XR chest 2V DATE OF EXAM: 05/13/2022 1:00 PM COMPARISON: Chest radiographs from 04/09/2022 TECHNIQUE: XR chest 2V Frontal and lateral views of the chest. CLINICAL INDICATION:Female, 76 years old with history of altered mental status; FINDINGS: Lungs/Pleura: There is no evidence of pleural effusion, focal consolidation, or pneumothorax. Pulmonary vascularity: Unremarkable. Heart/mediastinum: Cardiomediastinal silhouette is unremarkable. Musculoskeletal: No acute osseous pathology. Midline sternotomy wires are noted. Partially visualized right humerus fixation hardware. Hardware appears intact. Severe degeneration changes of the right s houlder with joint space narrowing with acetabularization of the acromion. Peripherally calcified lesion within the breasts is more lateral on today's exam. IMPRESSION: 1. No acute cardiopulmonary disease/process. 2. Full-thickness rotator cuff tear in the right suggested.
--- NOTE | 2022-05-13 13:11 | CT ---
EXAMINATION TYPE: CT angio head neck CT DLP: 478.2 mGycm, Automated exposure control for dose reduction was used. DATE OF EXAM: 05/13/2022 12:58 PM COMPARISON: . CLINICAL INDICATION:Female, 76 years old with history of Neuro deficit, acute, stroke suspected, Neur o deficit TECHNIQUE: Axially acquired helical CT angiogram of the head and neck was obtained with contrast. Axi al images are supplemented with 3D reconstructions [facility] criteria used. Contrast used:65 mL of Isovue 370 with IV Contrast, Oral contrast used: None. FINDINGS: CTA HEAD: No evidence of acute intracranial hemorrhage, mass effect, or midline shift. The ventricles, sulci, a nd cisterns are unremarkable. The visualized portions of the middle cerebral arteries, anterior cerebral arteries, and posterior ce rebral arteries are patent. Atherosclerosis of the toe carotid arteries without hemodynamically significant stenosis. The basilar and vertebral arteries are patent. Calcification within the vertebral artery intracranial portion. CTA NECK: Right Carotid System: There is tortuosity with a medialized course of the common carotid artery with bifurcation posterior to the pharynx. The common carotid artery is patent. There is mild calcified pl aque without significant stenosis. Internal carotid arteries patent. Left Carotid System: The common carotid artery and external carotid artery are patent. The carotid bifurcation demonstrate s no evidence of hemodynamically significant stenosis. There is calcified plaque at the bifurcation w ithout significant stenosis. The remaining portions of the internal carotid artery demonstrate normal size without significant narrowing. Vertebral arteries are patent without evidence hemodynamically significant stenosis. There is a three-vessel aortic arch. The origins of the great vessels are patent. No evidence of hemo dynamically significant stenosis. Bilateral thyroid nodules on the right measuring up to 2.0 x 1.0 cm and on the left measuring up to 0 .0 cm. IMPRESSION: 1. No evidence of dissection of the cervical internal carotid arteries or vertebral arteries or any e vidence of significant stenosis at the carotid bifurcations. 2. No evidence of intracranial high-grade stenosis or intracranial aneurysm.
--- NOTE | 2022-05-13 13:33 | CT ---
EXAMINATION TYPE: CT brain wo con CT DLP: 1071.8 mGycm, Automated exposure control for dose reduction was used. DATE OF EXAM: 05/13/2022 12:51 PM COMPARISON: CT head neck same day. CLINICAL INDICATION:Female, 76 years old with history of Neuro deficit, acute, stroke suspected, Neur o deficit TECHNIQUE: Brain: Axial CT images of the brain were obtained with coronal and sagittal reformats created and rev iewed. Contrast used: None. Oral contrast used: None. FINDINGS: Brain: Extra-axial spaces: No abnormal extra-axial fluid collections. Ventricular system: Within normal limits Cerebral parenchyma: No acute intraparenchymal hemorrhage or mass effect. The george-white junction is well differentiated. Scattered hypoattenuating areas are seen within the white matter. Cerebellum: Unremarkable. Mass effect: No evidence of midline shift. Intracranial vasculature: unremarkable Soft tissues: Normal. Calvarium/osseous structures: No depressed skull fracture. Paranasal sinuses and mastoid air cells: Mild scattered paranasal sinus disease. Visualized orbits: Orbital contents are intact. IMPRESSION: No acute intracranial process. Nonspecific white matter changes, likely secondary to chronic small vessel ischemic disease. Findings communicated to ER on 05/13/2022 1:[address] Jeff Durán.
[2022-05-13 14:18] LABS: Appearance,Urine Clear (Clear); Bilirubin,Urine Negative (Negative); Blood,Urine Negative (Negative); Color,Urine Light Yellow; Glucose,Urine (UA) 2+ (Negative); Ketones,Urine Negative (Negative); Leukocyte Esterase,Urine Negative (Negative); Nitrite,Urine Negative (Negative); Protein,Urine Trace (Negative); Urobilinogen,Urine <2.0 mg/dL (<2.0)
[2022-05-13] MEDS ORDERED: NALOXONE 0.4 MG/ML 1 ML VIAL IV PRN (14:19)
[2022-05-13] MEDS ORDERED: ASPIRIN 325 MG TAB PO STA (14:25)
[2022-05-13] MEDS: ATORVASTATIN 40 MG TAB PO SCH (14:34)
--- NOTE | 2022-05-13 15:20 | P.HPIM ---
History of Present Illness H&P Date: 05/13/22 History of Presenting Illness: Patient is a very pleasant 76-year-old female with a past medical history of CAD with CABG 2, paroxysmal atrial fibrillation status post cardiac ablation on anticoagulation with Eliquis, breast cancer status post lumpectomy, hypertension, hyperlipidemia, insulin-dependent diabetes mellitus, and previous TIAs. She presented to the emergency department with a chief complaint of left- sided facial droop, garbled speech, word finding difficulties, and noted difficulties with balance. Patient's daughter at bedside reports this episode lasted approximately one hour and then spontaneously resolved. She reports this has been her mother's third episode in the past month with initial TIA being diagnosed here at our facility on 04/09/22. Upon evaluation patient is currently alert to person, time, place, and situation. Speech was clear and GCS 2 through 12 are intact with no noted neurological deficits at this time. She denies experiencing any headaches, lightheadedness, dizziness, changes in her vision or hearing, chest pain or palpitations, shortness of breath, nausea or vomiting, or experiencing any numbness/tingling/weakness in her extremities. Patient underwent full evaluation in the emergency department. EKG completed showing n ormal sinus rhythm at 70 bpm with T-wave inversion in leads lateral leads aVL, V4 through V6. Chest x-ray negative for acute cardiopulmonary process revealing concerns of a full-thickness rotator cuff tear in the right. CT head negative for acute intercranial process. CTA head and neck negative for evidence of dissection or any significant stenosis on carotid bifurcations and negative for intracranial high-grade stenosis or intercranial aneurysms. CBC, coags, and CMP showing no significant abnormalities. Blood glucose slightly elevated at 205 and renal function revealing prerenal azotemia with BUN of 28. Urinalysis negative for infection. Patient admitted under services of consultation to neurology. Review of systems: Pertinent positives and negatives as discussed in HPI, a complete review of systems was performed and all other systems are negative. Physical exam: Vital signs reviewed and stable. General: Nontoxic, no distress and appears stated age. Derm: Skin warm and dry, normal coloration for ethnicity. Head: Atraumatic, normocephalic and symmetric. Eyes: EOMs intact, no lid lag, and anicteric sclera Mouth: no lip lesions, mucus membranes moist Cardiovascular: regular rate and rhythm with normal S1S2, stage IV systolic murmur, positive posterior tibial pulses bilaterally, and cap refill < 2 seconds. Lungs: Respirations even, regular, and unlabored on room air. Lungs CTA bilaterally, no rhonchi, no rales, no wheezing, and no accessory muscle usage. Abdominal: soft, nontender to palpation, no guarding, no appreciable organomegaly Ext: ROM intact. No gross muscle atrophy, no edema, no contractures Neuro: Speech clear, face symmetrical and CN II-XII grossly intact with no noted focal neuro deficits Psych: Alert and oriented to person, place, time, and situation. Appropriate and pleasant affect. Assessment and Plan of Care: TIA, recurrent TIAs Acute left-sided facial droop Aphasia, family reports both garbled speech and word finding difficulties Difficulties with balance upon standing, family reported difficulties with balance -Family and patient reports symptoms lasted approximately one hour before fully resolving. -Telemetry monitoring -NIH stroke assessment followed by neuro checks every 4 hours -Consult to neurology -Aspirin and atorvastatin -Fall precautions -Consult to PT/OT -Consult to speech and language pathologist Insulin-dependent diabetes mellitus with hyperglycemia -Patient placed on glycemic protocol with NovoLog sliding scale and to continue nightly Levemir 20 units Paroxysmal atrial fibrillation -Patient status post ablation 2 and currently on anticoagulation with Eliquis. History of CAD status post CABG 2 Hypertension Hyperlipidemia -Monitor vital signs and continue daily cardiac medication regimen with Eliquis, aspirin, atorvastatin, losartan, and metoprolol The patient is admitted with an anticipated less than 2 midnight stay for evaluation of TIA secondary to reports of acute left-sided facial droop accompanied by aphasia and difficulties with balance. CODE STATUS: Full code DVT prophylaxis: Eliquis Discussed with: Patient, patient's daughter, and RN Anticipated discharge date: Clinical course to determine Anticipated discharge place: Home A total of 46 minutes was spent on the care of this complex patient more than 50% of the time was spent in counseling and care coordination. I reviewed the documentation as provided by the RASHI above, who is the original author of this note. I agree with the documented assessment and plan, with the following changes: none Past Medical History Past Medical History: Atrial Fibrillation, Cancer, CVA/TIA, Diabetes Mellitus, Hyperlipidemia, Hypertension, Respiratory Disorder Additional Past Medical History / Comment(s): See Dr Mckee's H&P. Hx breast cancer in 2005 with lumpectomy and radiation. BILATERAL PLEURAL EFFUSIONS. TIA November 01 History of Any Multi-Drug Resistant Organisms: None Reported Past Surgical History: Breast Surgery, Coronary Bypass/CABG, Hernia Repair, Orthopedic Surgery, Tubal Ligation Additional Past Surgical History / Comment(s): Surgery for broken arm, CABG X 2, ZELAYA to the LAD, SVG to the OM. POSSIBLE BILATERAL THORACENTESIS. Ablation, EPS, cardioversion., Past Anesthesia/Blood Transfusion Reactions: No Reported Reaction Past Psychological History: Depression Smoking Status: Former smoker Past Alcohol Use History: Rare Past Drug Use History: None Reported - Past Family History Sister(s) Family Medical History: Cancer, Pulmonary Embolus Additional Family Medical History / Comment(s): Lung cancer. Medications and Allergies Home Medications Medication Instructions Recorded Confirmed Type Losartan Potassium [Cozaar] 25 mg PO HS 03/31/18 05/13/22 History Apixaban [Eliquis] 5 mg PO BID #60 tab 04/03/18 05/13/22 Rx metFORMIN HCL [Glucophage] 1,000 mg PO BID 05/19/18 05/13/22 History Slow-Mag 71.5mg 143 mg PO BID 12/06/18 05/13/22 History Venlafaxine HCl ER [Effexor XR] 150 mg PO DAILY 12/06/18 05/13/22 History Metoprolol Succinate [Toprol XL] 25 mg PO DAILY #0 12/16/18 05/13/22 Rx Insulin Detemir [Levemir Flextouch 20 unit SQ HS 06/06/20 05/13/22 History Pen] Venlafaxine HCl [Effexor XR] 75 mg PO DAILY 04/09/22 05/13/22 History Aspirin 81 mg PO DAILY 30 Days #30 tab 04/10/22 05/13/22 Rx Atorvastatin [Lipitor] 20 mg PO DAILY 30 Days #30 tab 04/10/22 05/13/22 Rx Allergies Allergy/AdvReac Type Severity Reaction Status Date / Time Sulfa (Sulfonamide Allergy Rash/Hives Verified 05/13/22 13:34 Antibiotics) sulfamethoxazole Allergy Rash/Hives Verified 05/13/22 13:34 [From Bactrim] trimethoprim [From Bactrim] Allergy Rash/Hives Verified 05/13/22 13:34 Physical Exam Osteopathic Statement: *. No significant issues noted on an osteopathic structural exam other than those noted in the History and Physical/Consult. Vitals: Vital Signs Temp Pulse Resp BP Pulse Ox 05/13/22 15:13 70 16 98 05/13/22 13:14 79 16 137/70 97 05/13/22 12:58 70 16 143/71 96 05/13/22 12:43 98.2 F 69 18 154/75 97 05/13/22 12:34 98.2 F 77 16 163/67 95 05/13/22 11:54 98.2 F 65 18 133/70 98 Intake and Output 05/13/22 05/13/22 05/13/22 06:59 14:59 22:59 Other: Weight 68.039 kg Results CBC & Chem 7: 05/13/22 12:22 05/13/22 12:22 Labs: Abnormal Lab Results - Last 24 Hours (Table) 05/13/22 05/13/22 05/13/22 Range/Units 12:00 12:19 12:22 RBC 3.56 L (3.80-5.40) m/uL Hct 32.6 L (34.0-46.0) % BUN (7-17) mg/dL Glucose (74-99) mg/dL POC Glucose (mg/dL) 206 H 196 H (70-110) mg/dL Ur Specific [place] (1.001-1.035) Urine Protein (Negative) Urine Glucose (UA) (Negative) 05/13/22 05/13/22 Range/Units 12:22 14:11 RBC (3.80-5.40) m/uL Hct (34.0-46.0) % BUN 28 H (7-17) mg/dL Glucose 205 H (74-99) mg/dL POC Glucose (mg/dL) (70-110) mg/dL Ur Specific [place] 1.050 H (1.001-1.035) Urine Protein Trace H (Negative) Urine Glucose (UA) 2+ H (Negative)
[2022-05-13] MEDS ORDERED: DEXTROSE 50% SYRINGE 50 ML IVP PRN ×2 (15:22)
[2022-05-13 17:11] LABS: Glucose,Whole Blood 176 mg/dL (70-110)
[2022-05-13] MEDS: INSULIN ASPART (NovoLOG) 100 UNIT/ML VIAL SQ SCH (18:47)
[2022-05-13 20:19] LABS: Glucose,Whole Blood 246 mg/dL (70-110)
[2022-05-13] MEDS: APIXABAN 5 MG TAB PO SCH (22:09)
[2022-05-13] MEDS: LOSARTAN 25 MG TAB PO SCH (22:09)
[2022-05-13] MEDS: INSULIN DETEMIR (LEVEMIR) 100 UNIT/ML SYR SQ SCH (22:10)
[2022-05-14] MEDS: INSULIN ASPART (NovoLOG) 100 UNIT/ML VIAL SQ SCH ×3 (06:28→17:58)
[2022-05-14 06:29] LABS: Glucose,Whole Blood 128 mg/dL (70-110)
[2022-05-14] MEDS: ASPIRIN 81 MG PO SCH (08:07)
[2022-05-14] MEDS: ATORVASTATIN 40 MG TAB PO SCH (08:07)
[2022-05-14] MEDS: METOPROLOL SUCCINATE (ER) 25 MG TAB.ER.24H PO SCH (08:07)
[2022-05-14] MEDS: APIXABAN 5 MG TAB PO SCH ×2 (08:07→21:13)
[2022-05-14] MEDS: VENLAFAXINE HCL ER 75 MG CAP PO SCH (08:07)
[2022-05-14 08:43] LABS: Basophils # (A) 0.02 X 10*3/uL (0.00-0.10); Basophils % (A) 0.3 %; HCT 31.3 % (37.2-46.3); HGB 10.6 g/dL (12.0-15.0); Immature Grans, Automated 0.3 %; Lymphocytes # (A) 1.07 X 10*3/uL (0.90-5.00); Lymphocytes % (A) 17.8 %; MCHC 33.9 g/dL (32.0-37.0); MCV 94.6 fL (80.0-97.0); Mean Platelet Volume 10.3 fL (9.5-12.2); NRBC Per 100 WBC 0 /100 WBCS (0.0-0.0); Neutrophils # (A) 3.99 X 10*3/uL (1.80-7.70); Neutrophils % (A) 66.6 %; Platelet Count 145 X 10*3/uL (140-440); RBC 3.31 X 10*6/uL (4.10-5.20); RDW 14.1 % (11.5-14.5)
[2022-05-14] MEDS ORDERED: ATORVASTATIN 20 MG TAB PO SCH (09:00)
[2022-05-14] MEDS ORDERED: VENLAFAXINE HCL ER 150 MG CAP PO SCH (09:00)
[2022-05-14 09:04] LABS: African American GFR (CKD) 56.5 (60.0-200.0); BUN/Creat Ratio 22.45 Ratio (12.00-20.00); Blood Urea Nitrogen 24.7 mg/dL (9.0-27.0); Calcium 9.2 mg/dL (8.7-10.3); Carbon Dioxide 27.9 mmol/L (20.0-27.5); Chloride 103 mmol/L (96-109); Chol/HDL Ratio 3.81 Ratio; Glucose 108 mg/dL (70-110); LDL Cholesterol,Calculated 81.4 mg/dL (0.0-131.0); Non-African American GFR(CKD) 48.7 (60.0-200.0); Potassium 4.6 mmol/L (3.5-5.5); Sodium 140 mmol/L (135-145)
--- NOTE | 2022-05-14 10:27 | P.CNNES ---
History of Present Illness Consult date: 05/14/22 Requesting physician: Di Lancaster Reason for Consult: left side facial droop, expressive aphasia History of Present Illness: This is a 76-year-old woman with medical history of TIA (begining of 04/2022 and had slurring of words), breast cancer status post lumpectomy, coronary artery disease status post CABG, atrial fibrillation status post ablation on Eliquis who presented to the emergency department on 05/13/2022 for right facial droop, garbled speech and word finding difficulty. Daughter is at bedside who provides with some of the history. It seems that on 05/13/2022 patient was with her daughters and around 11:30 she was having difficulty getting her words out even though she knew what she wanted to the express, had hard time retrieving word, and a daughter felt the patient had right facial droop according to the other sister. The episode lasted for an hour to hour and a half. Patient had any focal weakness, numbness, headaches, any jerk in of any extremity, urinary bowel incontinence. She is the third episode in the past 1 month. She is compliant taking her aspirin and Eliquis. Patient is recently in our facility in the beginning of April 2022 and the she was notified she had TIA for slurring of the words. Then on April 30 she had a similar presentation at vascular surgery visit as what she presented for this visit but did not seek any medical attention. She denies any history of seizures. Denies tobacco use or illicit drug use. Rarely drinks alcohol. The vascular surgery team, was notified for surveillance and follow-up within 6 months. Some of the workup during this hospital visit consisted of: On initial presentation patient POC glucose record is 206, creatinine, calcium, HDL T, sodium R within normal limits. CT of the head is reported as no acute intracranial process. Nonspecific white matter changes, likely secondary to chronic small vessel ischemic disease. I personally could not review the images because of issues with the system CT angiography of the head and neck was reported as no evidence of dissection of the cervical internal carotid arteries or vertebral arteries or any evidence of significant stenosis at the carotid bifurcation. No evidence of intracranial high-grade stenosis or intracranial aneurysm. Code stroke was activated by the ED team and she had NIH of a 2. She had left facial droop and some slurred speech. The ED team spoke with the stroke attending (Dr. Manzanares) and the no IV TPA since low NIH stroke scale and the risks outweigh the benefit. EKG is reported as sinus rhythm. ST elevation and moderate T-wave abnormality, consider lateral ischemia. Abnormal EKG. Lipid panel is triglyceride of 216, cholesterol 169, LDLs 81 and HDL 44. Of note the patient was evaluated in our facility on 04/10/[address] Majano (Neuro-Hospitalist) or her bra presentation of slurring of the words and he felt the TIA. He recommended and starting aspirin 81 for stroke prevention and continue Eliquis 5mg bid. Please refer to his notes for further details. Review of Systems Review of system: The 12 point system was reviewed and apparent positive and negative per HPI. Past Medical History Past Medical History: Atrial Fibrillation, Cancer, CVA/TIA, Diabetes Mellitus, Hyperlipidemia, Hypertension, Respiratory Disorder Additional Past Medical History / Comment(s): See Dr Mckee's H&P. Hx breast cancer in 2005 with lumpectomy and radiation. BILATERAL PLEURAL EFFUSIONS. TIA November 01 History of Any Multi-Drug Resistant Organisms: None Reported Past Surgical History: Breast Surgery, Coronary Bypass/CABG, Hernia Repair, Orthopedic Surgery, Tubal Ligation Additional Past Surgical History / Comment(s): Surgery for broken arm, CABG X 2, ZELAYA to the LAD, SVG to the OM. POSSIBLE BILATERAL THORACENTESIS. Ablation, EPS, cardioversion., Past Anesthesia/Blood Transfusion Reactions: No Reported Reaction Past Psychological History: Depression Smoking Status: Former smoker Past Alcohol Use History: Rare Past Drug Use History: None Reported - Past Family History Sister(s) Family Medical History: Cancer, Pulmonary Embolus Additional Family Medical History / Comment(s): Lung cancer. Medications and Allergies Home Medications Medication Instructions Recorded Confirmed Type Losartan Potassium [Cozaar] 25 mg PO HS 03/31/18 05/13/22 History Apixaban [Eliquis] 5 mg PO BID #60 tab 04/03/18 05/13/22 Rx metFORMIN HCL [Glucophage] 1,000 mg PO BID 05/19/18 05/13/22 History Slow-Mag 71.5mg 143 mg PO BID 12/06/18 05/13/22 History Venlafaxine HCl ER [Effexor XR] 150 mg PO DAILY 12/06/18 05/13/22 History Metoprolol Succinate [Toprol XL] 25 mg PO DAILY #0 12/16/18 05/13/22 Rx Insulin Detemir [Levemir Flextouch 20 unit SQ HS 06/06/20 05/13/22 History Pen] Venlafaxine HCl [Effexor XR] 75 mg PO DAILY 04/09/22 05/13/22 History Aspirin 81 mg PO DAILY 30 Days #30 tab 04/10/22 05/13/22 Rx Atorvastatin [Lipitor] 20 mg PO DAILY 30 Days #30 tab 04/10/22 05/13/22 Rx Allergies Allergy/AdvReac Type Severity Reaction Status Date / Time Sulfa (Sulfonamide Allergy Rash/Hives Verified 05/13/22 13:34 Antibiotics) sulfamethoxazole Allergy Rash/Hives Verified 05/13/22 13:34 [From Bactrim] trimethoprim [From Bactrim] Allergy Rash/Hives Verified 05/13/22 13:34 Physical Examination - Vital Signs Vital Signs: Vital Signs Temp Pulse Pulse Resp BP BP Pulse Ox 05/14/22 06:04 98.1 F 74 16 107/62 98 05/14/22 02:20 98.2 F 62 18 126/55 92 L 05/13/22 20:00 98.8 F 78 18 132/71 95 05/13/22 15:33 97.8 F 76 16 168/77 98 05/13/22 15:13 70 16 98 05/13/22 13:14 79 16 137/70 97 05/13/22 12:58 70 16 143/71 96 05/13/22 12:43 98.2 F 69 18 154/75 97 05/13/22 12:34 98.2 F 77 16 163/67 95 05/13/22 11:54 98.2 F 65 18 133/70 98 Intake and Output 05/13/22 05/14/22 05/14/22 22:59 06:59 14:59 Intake Total 240 Balance 240 Intake: Oral 240 Other: # Voids 1 3 Weight 68.039 kg GENERAL: The patient is lying in bed and is not in acute distress. CHEST: The heart rate is regular rate rhythm. Positive murmurs to auscultation. No carotid bruit bilaterally. LUNG: Clear to auscultation bilaterally no wheezing noted throughout. Not labored breathing. ABDOMEN/GI: Bowel sounds present in all 4 quadrants. No tenderness to palpation throughout. NEUROLOGICAL: Higher mental function: The patient is awake, alert, oriented to self, place and time. Patient is following commands. No aphasia and no neglect. Cranial nerves: The pupils are round, equal and reactive to light and accommodation. Visual lemos are full to confrontation throughout. Extraocular movement is intact no nystagmus is noted. Facial sensation is normal to touch throughout. The facial strength is normal throughout. Hearing is normal bilaterally to hand rub. Tongue is midline and moved [id number] without any difficulty. No dysarthria is noted. Shoulder shrug is normal bilaterally. Motor: Gait is normal. The strength is limited in proximal right shoulder because of fracture in past but had at least 4+ (fell walking on a toy and resulted in fracture right shoulder/arm). Otherwise 5 over 5 throughout. Normal tone and bulk. Cerebellum: Normal finger to nose heel to arvizu bilaterally. Sensation: Sensation is normal to touch throughout. Reflexes (right/left): 2+ throughout. Plantars are downgoing bilaterally. Results - Laboratory Findings CBC and BMP: 05/14/22 06:04 05/14/22 06:04 Abnormal Lab Findings: Abnormal Labs 05/13/22 05/13/22 05/13/22 12:00 12:19 12:22 RBC 3.56 L Hgb Hct 32.6 L BUN Glucose POC Glucose (mg/dL) 206 H 196 H Ur Specific [place] Urine Protein Urine Glucose (UA) 05/13/22 05/13/22 05/13/22 12:22 14:11 17:09 RBC Hgb Hct BUN 28 H Glucose 205 H POC Glucose (mg/dL) 176 H Ur Specific [place] 1.050 H Urine Protein Trace H Urine Glucose (UA) 2+ H 05/13/22 05/14/22 05/14/22 20:17 06:04 06:28 RBC 3.31 L Hgb 10.6 L Hct 31.3 L BUN Glucose POC Glucose (mg/dL) 246 H 128 H Ur Specific [place] Urine Protein Urine Glucose (UA) Assessment and Plan Assessment: Transient episode of right facial droop and expressive aphasia (lasting 1-1.5 hours). Likely probable TIA (especially with her multiple risk factors). Cannot rule out seizure (because of multiple episode and hx of breast cancer) but low on differential. History of repeated TIA in beginning of April 2022 a she had slurring of the words and similar one as above in late April while at vascular surgeon. Atrial fibrillation status post ablation on Eliquis History of right breast cancer status post lumpectomy in History of coronary artery disease status post CABG Diabetes mellitus Hypertension Plan: I ordered MRI of the brain with and without to see whether there is actually any acute ischemia seen on MRI versus any mass. Patient was given aspirin 325 once and was continued on her home dose of aspirin 81 as well as Eliquis 5mg 1 tab bid. I will not modify her medication for now until I get the results of the MRI. Continue Lipitor 40mg qhs. I ordered routine EEG because of her frequent episode to rule out any active underlying seizures or discharges. If continues to have symptoms recommend prolonged EEG (ambulatory EEG) as outpatient. Lipid panels ordered and pending PT, OT and CASTINGS TRIMMER are consulted Continue neuro checks On cardiac monitoring We'll defer the rest of the medical management to primary team For DVT prophylaxis the patient is on Eliquis. The plan was discussed with the patient, her daughter who is at bedside as well as the primary team Thank you for the consultation Time with Patient: Greater than 30
[2022-05-14 11:40] LABS: Glucose,Whole Blood 228 mg/dL (70-110)
--- NOTE | 2022-05-14 14:01 | P.PN ---
Subjective Progress Note Date: 05/14/22 Hospital Course: Patient is a very pleasant 76-year-old female with a past medical history of CAD with CABG 2, paroxysmal atrial fibrillation status post cardiac ablation on anticoagulation with Eliquis, breast cancer status post lumpectomy, hypertension, hyperlipidemia, insulin-dependent diabetes mellitus, and previous TIAs. She presented to the emergency department with a chief complaint of left- sided facial droop, garbled speech, word finding difficulties, and noted difficulties with balance. Patient's daughter at bedside reports this episode lasted approximately one hour and then spontaneously resolved. She reports this has been her mother's third episode in the past month with initial TIA being diagnosed here at our facility on 04/09/22. Upon evaluation patient is currently alert to person, time, place, and situation. Speech was clear and GCS 2 through 12 are intact with no noted neurological deficits at this time. She denies experiencing any headaches, lightheadedness, dizziness, changes in her vision or hearing, chest pain or palpitations, shortness of breath, nausea or vomiting, or experiencing any numbness/tingling/weakness in her extremities. Patient underwent full evaluation in the emergency department. EKG completed showing normal sinus rhythm at 70 bpm with T-wave inversion in leads lateral leads aVL, V4 through V6. Chest x-ray negative for acute cardiopulmonary process revealing concerns of a full-thickness rotator cuff tear in the right. CT head negative for acute intercranial process. CTA head and neck negative for evidence of dissection or any significant stenosis on carotid bifurcations and negative for intracranial high-grade stenosis or intercranial aneurysms. CBC, coags, and CMP showing no significant abnormalities. Blood glucose slightly elevated at 205 and renal function revealing prerenal azotemia with BUN of 28. Urinalysis negative for infection. Patient admitted under services of consultation to neurology. Secondary to concerns that this is the third neurological event within the past month, patient to undergo MRI and EEG per neurology recommendations. Physical exam: Patient seen and fully evaluated at bedside this morning. She appears to be doing well. Patient reports she continues to have full resolution of previous reported facial droop and aphasia with no further episodes. Discussed case with neurologist, secondary to patient's third neurological event over the past month patient to Undergo MRI and EEG. At this time patient to continue with Eliquis and aspirin. Pending neurology recommendations, may need to change patient to Plavix and Eliquis upon discharge. Cardiology also consulted for evaluation for CORRY secondary to recurrent TIAs. Vital signs reviewed and stable. General: Nontoxic, no distress and appears stated age. Derm: Skin warm and dry, normal coloration for ethnicity. Head: Atraumatic, normocephalic and symmetric. Eyes: EOMs intact, no lid lag, and anicteric sclera Mouth: no lip lesions, mucus membranes moist Cardiovascular: regular rate and rhythm with normal S1S2, stage IV systolic murmur, positive posterior tibial pulses bilaterally, and cap refill < 2 s econds. Lungs: Respirations even, regular, and unlabored on room air. Lungs CTA bilaterally, no rhonchi, no rales, no wheezing, and no accessory muscle usage. Abdominal: soft, nontender to palpation, no guarding, no appreciable organomegaly Ext: ROM intact. No gross muscle atrophy, no edema, no contractures Neuro: Speech clear, face symmetrical and CN II-XII grossly intact with no noted focal neuro deficits Psych: Alert and oriented to person, place, time, and situation. Appropriate and pleasant affect. Assessment and Plan of Care: TIA, recurrent TIAs (3 events over the past month) Acute left-sided facial droop Aphasia, family reports both garbled speech and word finding difficulties Difficulties with balance upon standing, family reported difficulties with balance -Family and patient reports symptoms lasted approximately one hour before fully resolving. -Telemetry monitoring -NIH stroke assessment followed by neuro checks every 4 hours -Neurology following, placed order for MRI -Aspirin and atorvastatin -Fall precautions -Consult to PT/OT -Consult to speech and language pathologist -Cardiology consulted for evaluation for possible CORRY Insulin-dependent diabetes mellitus with hyperglycemia -Patient placed on glycemic protocol with NovoLog sliding scale and to continue nightly Levemir 20 units Paroxysmal atrial fibrillation -Patient status post ablation 2 and currently on anticoagulation with Eliquis. History of CAD status post CABG 2 Hypertension Hyperlipidemia -Monitor vital signs and continue daily cardiac medication regimen with Eliquis, aspirin, atorvastatin, losartan, and metoprolol CODE STATUS: Full code DVT prophylaxis: Eliquis Discussed with: Patient, patient's daughter, and RN Anticipated discharge date: Clinical course to determine Anticipated discharge place: Home A total of 32 minutes was spent on the care of this complex patient more than 50% of the time was spent in counseling and care coordination. I reviewed the documentation as provided by the RASHI above, who is the original author of this note. I agree with the documented assessment and plan, with the following changes: none Objective - Vital Signs Vital signs: Vital Signs Temp 98.1 F 05/14/22 06:04 Pulse 74 05/14/22 06:04 Resp 16 05/14/22 06:04 BP 107/62 05/14/22 06:04 Pulse Ox 98 05/14/22 06:04 FiO2 Intake & Output 05/13/22 05/14/22 05/14/22 18:59 06:59 18:59 Intake Total 240 Balance 240 Weight 68.039 kg Intake: Oral 240 Other: # Voids 3 - Labs CBC & Chem 7: 05/14/22 06:04 05/14/22 06:04 Labs: Abnormal Lab Results - Last 24 Hours (Table) 05/13/22 05/13/22 05/13/22 Range/Units 12:00 12:19 12:22 RBC 3.56 L (3.80-5.40) m/uL Hgb (12.0-15.0) g/dL Hct 32.6 L (34.0-46.0) % Carbon Dioxide (20.0-27.5) mmol/L Anion Gap (10.00-18.00) mmol/L BUN (7-17) mg/dL Est GFR (CKD-EPI)AfAm (60.0-200.0) Est GFR (CKD-EPI)NonAf (60.0-200.0) BUN/Creatinine Ratio (12.00-20.00) Ratio Glucose (74-99) mg/dL POC Glucose (mg/dL) 206 H 196 H (70-110) mg/dL Triglycerides (0.00-149.00) mg/dL VLDL Cholesterol, Calc (5.00-40.00) mg/dL Ur Specific Bouse (1.001-1.035) Urine Protein (Negative) Urine Glucose (UA) (Negative) 05/13/22 05/13/22 05/13/22 Range/Units 12:22 14:11 17:09 RBC (3.80-5.40) m/uL Hgb (12.0-15.0) g/dL Hct (34.0-46.0) % Carbon Dioxide (20.0-27.5) mmol/L Anion Gap (10.00-18.00) mmol/L BUN 28 H (7-17) mg/dL Est GFR (CKD-EPI)AfAm (60.0-200.0) Est GFR (CKD-EPI)NonAf (60.0-200.0) BUN/Creatinine Ratio (12.00-20.00) Ratio Glucose 205 H (74-99) mg/dL POC Glucose (mg/dL) 176 H (70-110) mg/dL Triglycerides (0.00-149.00) mg/dL VLDL Cholesterol, Calc (5.00-40.00) mg/dL Ur Specific Bouse 1.050 H (1.001-1.035) Urine Protein Trace H (Negative) Urine Glucose (UA) 2+ H (Negative) 05/13/22 05/14/22 05/14/22 Range/Units 20:17 06:04 06:04 RBC 3.31 L (3.80-5.40) m/uL Hgb 10.6 L (12.0-15.0) g/dL Hct 31.3 L (34.0-46.0) % Carbon Dioxide 27.9 H (20.0-27.5) mmol/L Anion Gap 9.10 L (10.00-18.00) mmol/L BUN (7-17) mg/dL Est GFR (CKD-EPI)AfAm 56.5 L (60.0-200.0) Est GFR (CKD-EPI)NonAf 48.7 L (60.0-200.0) BUN/Creatinine Ratio 22.45 H (12.00-20.00) Ratio Glucose (74-99) mg/dL POC Glucose (mg/dL) 246 H (70-110) mg/dL Triglycerides 216.00 H (0.00-149.00) mg/dL VLDL Cholesterol, Calc 43.20 H (5.00-40.00) mg/dL Ur Specific Bouse (1.001-1.035) Urine Protein (Negative) Urine Glucose (UA) (Negative) 05/14/22 Range/Units 06:28 RBC (3.80-5.40) m/uL Hgb (12.0-15.0) g/dL Hct (34.0-46.0) % Carbon Dioxide (20.0-27.5) mmol/L Anion Gap (10.00-18.00) mmol/L BUN (7-17) mg/dL Est GFR (CKD-EPI)AfAm (60.0-200.0) Est GFR (CKD-EPI)NonAf (60.0-200.0) BUN/Creatinine Ratio (12.00-20.00) Ratio Glucose (74-99) mg/dL POC Glucose (mg/dL) 128 H (70-110) mg/dL Triglycerides (0.00-149.00) mg/dL VLDL Cholesterol, Calc (5.00-40.00) mg/dL Ur Specific Bouse (1.001-1.035) Urine Protein (Negative) Urine Glucose (UA) (Negative)
--- NOTE | 2022-05-14 16:20 | MR ---
EXAMINATION TYPE: MR brain wo/w con DATE OF EXAM: 05/14/2022 COMPARISON: CT brain from yesterday HISTORY: Left facial droop, expressive aphasia. TECHNIQUE: Multiplanar, multisequence images of the brain and brainstem is performed without and with IV contras t, utilizing 7 mL intravenous Gadavist . FINDINGS: Diffusion weighted images demonstrate no evidence of a recent infarct or other diffusion ab normality. There is moderate ventricular and sulcal prominence redemonstrated. There are multiple fo shruthi areas of T2 hyperintensity seen throughout the white matter bilaterally greatest at the periventr icular levels. No suspicious intraparenchymal blood product on T2 Star weighted images. Midline structures demonstrate normal morphology. The craniocervical junction appears within normal limits. Post contrast images demonstrate no abnormal enhancement. The dural venous sinuses appear pa tent. The visualized sinuses are clear and the globes are intact. IMPRESSION: 1. No MRI evidence for recent infarct. 2. Mild to moderate diffuse cerebral atrophy and nonspecific white matter changes favor product of ch ronic small vessel ischemic change in patient of this age. No suspicious enhancement seen.
[2022-05-14 17:53] LABS: Glucose,Whole Blood 316 mg/dL (70-110)
[2022-05-14 20:26] LABS: Glucose,Whole Blood 364 mg/dL (70-110)
[2022-05-14] MEDS: LOSARTAN 25 MG TAB PO SCH (21:13)
[2022-05-14] MEDS: INSULIN DETEMIR (LEVEMIR) 100 UNIT/ML SYR SQ SCH (21:13)
--- NOTE | 2022-05-15 03:14 | EEG ---
ELECTROENCEPHALOGRAM REPORT CLINICAL HISTORY: This is a 76-year-old woman with recurrent episodes of speech difficulty. The video EEG is obtained to evaluate for seizure epileptiform activity. RELEVANT MEDICATION: The patient is not on any antiepileptic drugs. EEG TYPE: A routine 21-channel EEG is performed with video using the 10/20 electrode placement system. DESCRIPTION: Wakefulness and some drowsiness are obtained. During awake state, the posterior- dominant rhythm consists of [id number] voltage of 8 to 8.5 hertz that is poorly modulated, poorly sustained. There was no physiological stage II sleep architecture. There is no focal slowing. During the study, there appears to be electrode artifact sporadically during the study. Interictal and ictal is none. ACTIVATION PROCEDURE: Photic stimulation did not evoke a posterior driving response. There is no abnormality during the photic stimulation. Hyperventilation is not performed. CLINICAL INTERPRETATION: Thisis a normal routine EEG. There is no focal slowing, epileptiform discharge, or seizure on the EEG. There is some artifact as stated above during this study. A normal routine EEG does not exclude underlying epilepsy. Clinical correlation is recommended. MMODL / IJN: [id number] / SARAH
[2022-05-15 06:12] LABS: Glucose,Whole Blood 168 mg/dL (70-110)
[2022-05-15] MEDS: INSULIN ASPART (NovoLOG) 100 UNIT/ML VIAL SQ SCH ×2 (06:35→12:21)
[2022-05-15] MEDS: VENLAFAXINE HCL ER 75 MG CAP PO SCH (09:23)
[2022-05-15] MEDS: APIXABAN 5 MG TAB PO SCH (09:24)
[2022-05-15] MEDS: ASPIRIN 81 MG PO SCH (09:24)
[2022-05-15] MEDS: ATORVASTATIN 40 MG TAB PO SCH (09:24)
--- NOTE | 2022-05-15 09:54 | P.CRDCN ---
History of Present Illness Consult date: 05/15/22 History of present illness: HISTORY OF PRESENT ILLNESS: This is a 76 year old female with a past medical history significant for recurrent TIA, paroxysmal atrial fibrillation, atrial tachycardia with previous ablation, hypertension, hyperlipidemia, diabetes, and coronary artery disease with previous CABG in 2018. Patient follows in the office with Dr. Leigh. We have been asked to see the patient in consultation for recurrent TIA. Patient examined at the bedside. Patient presented to the hospital with a chief complaint of expressive aphasia and difficulty with her balance. The patient states the episode lasted about 45 minutes-1 hour. This is her third episode of this over the last month. She is currently on Eliquis and aspirin. She reports she has been complaint with all of her medications and does not miss any doses. Her symptoms have resolved at the time of examination. She denies any chest pain or pressure. Vital signs are stable. * EKG reveals sinus mechanism with T wave inversions in lateral leads * Chest xray no acute process seen. * Brain MRI: no evidence for recent infarct * EEG: No evidence of seizure activity * Laboratory data: WBC 6.0. Hemoglobin 10.6. Platelet count 145. Sodium 140. Potassium 4.6. BUN 24. Creatinine 1.1. Troponin negative x 1 * Current home cardiac medications include Eliquis 5mg BID, aspirin 81mg daily, lipitor 20mg daily, Cozaar 25mg at HS, metoprolol succinate 25mg daily * Most recent echocardiogram obtained in April 2022 revealed ejection fraction 55-60%, mild pulmonary hypertension, mild mitral regurgitation, and heavily calcified aortic valve with mild aortic regurgitation and mild stenosis * Patient underwent CABG in 2018 with ZELAYA to LAD and VG to the OM branch of circumflex REVIEW OF SYSTEMS: At the time of my exam: CONSTITUTIONAL: Denies fever or chills. HEENT: Denies blurred vision, vision changes, or eye pain. Denies hemoptysis CARDIOVASCULAR: Denies chest pain. Denies orthopnea. Denies PND. Denies palpitations RESPIRATORY: Denies shortness of breath. GASTROINTESTINAL: Denies abdominal pain. Denies nausea or vomiting. HEMATOLOGIC: Denies bleeding disorders. GENITOURINARY: Denies any blood in urine. SKIN: Denies pruitis. Denies rash. PHYSICAL EXAM: VITAL SIGNS: Reviewed. GENERAL: Well-developed in no acute distress. HEENT: Head is normocephalic. Pupils are equal, round. Sclerae anicteric. Mucous membranes of the mouth are moist. Neck supple. No JVD or thyromegaly LUNGS: Respirations even and unlabored. Lungs essentially clear to auscultation bilaterally. HEART: Regular rate and rhythm. S1 and S2 heard. + systolic murmur. ABDOMEN: Soft. Nondistended. Nontender. EXTREMITIES: Normal range of motion. No clubbing or cyanosis. Peripheral pulses intact. No lower extremity edema NEUROLOGIC: Awake and alert. Oriented x 3. ASSESSMENT: Recurrent TIA Coronary artery disease with previous CABG Paroxysmal atrial fibrillation Atrial tachycardia with previous ablation Hypertension Hyperlipidemia Diabetes PLAN: No need to repeat echo as this was performed last month Continue home cardiac medications Patient to undergo CORRY this morning with Dr. Bradshaw Further recommendations pending patient course Nurse practitioner note has been reviewed by physician. Signing provider agrees with the documented findings, assessment, and plan of care. Past Medical History Past Medical History: Atrial Fibrillation, Cancer, CVA/TIA, Diabetes Mellitus, Hyperlipidemia, Hypertension, Respiratory Disorder Additional Past Medical History / Comment(s): See Dr Mckee's H&P. Hx breast cancer in 2005 with lumpectomy and radiation. BILATERAL PLEURAL EFFUSIONS. TIA November 01 History of Any Multi-Drug Resistant Organisms: None Reported Past Surgical History: Breast Surgery, Coronary Bypass/CABG, Hernia Repair, Orthopedic Surgery, Tubal Ligation Additional Past Surgical History / Comment(s): Surgery for broken arm, CABG X 2, ZELAYA to the LAD, SVG to the OM. POSSIBLE BILATERAL THORACENTESIS. Ablation, EPS, cardioversion., Past Anesthesia/Blood Transfusion Reactions: No Reported Reaction Past Psychological History: Depression Smoking Status: Former smoker Past Alcohol Use History: Rare Past Drug Use History: None Reported - Past Family History Sister(s) Family Medical History: Cancer, Pulmonary Embolus Additional Family Medical History / Comment(s): Lung cancer. Medications and Allergies Home Medications Medication Instructions Recorded Confirmed Type Losartan Potassium [Cozaar] 25 mg PO HS 03/31/18 05/13/22 History Apixaban [Eliquis] 5 mg PO BID #60 tab 04/03/18 05/13/22 Rx metFORMIN HCL [Glucophage] 1,000 mg PO BID 05/19/18 05/13/22 History Slow-Mag 71.5mg 143 mg PO BID 12/06/18 05/13/22 History Venlafaxine HCl ER [Effexor XR] 150 mg PO DAILY 12/06/18 05/13/22 History Metoprolol Succinate [Toprol XL] 25 mg PO DAILY #0 12/16/18 05/13/22 Rx Insulin Detemir [Levemir Flextouch 20 unit SQ HS 06/06/20 05/13/22 History Pen] Venlafaxine HCl [Effexor XR] 75 mg PO DAILY 04/09/22 05/13/22 History Aspirin 81 mg PO DAILY 30 Days #30 tab 04/10/22 05/13/22 Rx Atorvastatin [Lipitor] 20 mg PO DAILY 30 Days #30 tab 04/10/22 05/13/22 Rx Allergies Allergy/AdvReac Type Severity Reaction Status Date / Time Sulfa (Sulfonamide Allergy Rash/Hives Verified 05/13/22 13:34 Antibiotics) sulfamethoxazole Allergy Rash/Hives Verified 05/13/22 13:34 [From Bactrim] trimethoprim [From Bactrim] Allergy Rash/Hives Verified 05/13/22 13:34 Physical Exam Vitals: Vital Signs Temp Pulse Resp BP Pulse Ox 05/15/22 06:53 98.2 F 64 18 136/80 99 05/15/22 02:42 97.9 F 55 L 16 127/65 98 05/14/22 20:27 98.1 F 68 17 123/73 98 05/14/22 15:42 98.5 F 71 18 125/77 98 Intake and Output 05/14/22 05/15/22 05/15/22 22:59 06:59 14:59 Intake Total 240 Balance 240 Intake: Oral 240 Other: # Voids 3 3 Results 05/14/22 06:04 05/14/22 06:04 Lipids 05/14/22 Range/Units 06:04 Triglycerides 216.00 H (0.00-149.00) mg/dL Cholesterol 169.00 (0.00-200.00) mg/dL HDL Cholesterol 44.40 (40.00-60.00) mg/dL Cholesterol/HDL Ratio 3.81 Ratio CBC 05/14/22 Range/Units 06:04 WBC 6.00 (4.50-10.00) X 10*3/uL RBC 3.31 L (4.10-5.20) X 10*6/uL Hgb 10.6 L (12.0-15.0) g/dL Hct 31.3 L (37.2-46.3) % Plt Count 145 (140-440) X 10*3/uL Comprehensive Metabolic Panel 05/14/22 Range/Units 06:04 Sodium 140 (135-145) mmol/L Potassium 4.6 (3.5-5.5) mmol/L Chloride 103 (96-109) mmol/L Carbon Dioxide 27.9 H (20.0-27.5) mmol/L BUN 24.7 (9.0-27.0) mg/dL Creatinine 1.1 (0.6-1.5) mg/dL Glucose 108 (70-110) mg/dL Calcium 9.2 (8.7-10.3) mg/dL Current Medications Generic Name Dose Route Start Last Admin Trade Name Freq PRN Reason Stop Dose Admin Apixaban 5 mg 05/13/22 21:00 05/14/22 21:13 Apixaban 5 Mg Tab PO 5 mg BID TORIBIO Administration Protocol Aspirin 81 mg 05/14/22 09:00 05/14/22 08:07 Aspirin 81 Mg PO 81 mg DAILY TORIBIO Administration Atorvastatin Calcium 40 mg 05/13/22 14:30 05/14/22 08:07 Atorvastatin 40 Mg Tab PO 40 mg DAILY TORIBIO Administration Dextrose/Water 25 ml 05/13/22 15:22 Dextrose 50% Syringe 50 Ml IVP PER PROTOCOL PRN Hypoglycemia Protocol Dextrose/Water 50 ml 05/13/22 15:22 Dextrose 50% Syringe 50 Ml IVP PER PROTOCOL PRN Hypoglycemia Protocol Insulin Aspart 0 unit 05/13/22 17:30 05/15/22 06:35 Insulin Aspart (Novolog) 100 Unit/Ml Vial SQ 1 unit AC-TID TORIBIO Administration Protocol Insulin Detemir 20 unit 05/13/22 21:00 05/14/22 21:13 Insulin Detemir (Levemir) 100 Unit/Ml Syr SQ 20 unit HS TORIBIO Administration Losartan Potassium 25 mg 05/13/22 21:00 05/14/22 21:13 Losartan 25 Mg Tab PO 25 mg HS TORIBIO Administration Metoprolol Succinate 25 mg 05/14/22 09:00 05/14/22 08:07 Metoprolol Succinate (Er) 25 Mg Tab.Er.24h PO 25 mg DAILY TORIBIO Administration Naloxone HCl 0.2 mg 05/13/22 14:19 Naloxone 0.4 Mg/Ml 1 Ml Vial IV Q2M PRN Opioid Reversal Venlafaxine HCl 225 mg 05/14/22 09:00 05/14/22 08:07 Venlafaxine Hcl Er 75 Mg Cap PO 225 mg DAILY TORIBIO Administration Intake and Output 05/14/22 05/15/22 05/15/22 22:59 06:59 14:59 Intake Total 240 Balance 240 Intake: Oral 240 Other: # Voids 3 3 05/14/22 06:04 05/14/22 06:04
[2022-05-15] MEDS ORDERED: fentaNYL (PF) 50 MCG/ML 2 ML AMP ONE (11:25)
[2022-05-15] MEDS ORDERED: BENZOCAINE SPRAY 1 CAN TOPICAL ONE ×2 (11:33→11:36)
[2022-05-15] MEDS ORDERED: SODIUM CHLORIDE 0.9% 500 ML 500 ML IV ONE (11:33)
[2022-05-15] MEDS ORDERED: MIDAZOLAM 2 MG/2 ML VIAL IV ONE (11:36)
[2022-05-15] MEDS ORDERED: fentaNYL (PF) 50 MCG/ML 2 ML AMP IV ONE (11:36)
[2022-05-15 12:02] LABS: Glucose,Whole Blood 135 mg/dL (70-110)
--- NOTE | 2022-05-15 12:28 | P.PCN ---
Date of Procedure: 05/15/22 Operative Findings: TRANSESOPHAGEAL ECHOCARDIOGRAM CHILD AND FAMILY SERVICES SPECIALIST: JOCELYN GARCIA MD, RPVI INDICATION: Rule out cardiac source of embolization in this 76-year-old female patient who was experiencing symptoms of TIA SEDATION: Conscious sedation COMPLICATION: None LEVEL OF SEDATION Moderate with sedation length of 10 minutes PROCEDURE DESCRIPTION: After obtaining an informed consent, the patient was brought to transesophageal echocardiogram room. Pulse oximetry and heart monitors were attached to the patient. The patient throat was sprayed using lidocaine. The patient was turned into left lateral position. After that a bite guard was placed. After an a ppropriate conscious sedation was initiated, the transesophageal echocardiogram was advanced through a bite guard into the mid esophagus. A 2-D echocardiogram images, color Doppler images, continuous wave images, pulse-wave images, of various cardiac structure were performed. After that the transesophageal echocardiogram probe was advanced into the stomach and fixed to obtain transgastric view was. The probe was brought into the mid esophagus. Inter-atrial septum was interrogated using 2D images, color Doppler images, and then contrast study. After that transesophageal echocardiogram was withdrawn out and upon withdrawing the descending thoracic aorta all the way up to the arch was evaluated. FINDING: The left ventricular dimension and systolic function appeared to be within normal limits. The ejection fraction appeared to be in the range of 50-50%. The right ventricle appeared to be of normal size the left atrium appeared to be within normal limits for dimension. Left atrium appendage appeared to be free from any thrombus. The interatrial septum appeared to be intact. The aortic valve appeared to be bicuspid valve with fusion of the right and left coronary cusps and evidence of moderate aortic stenosis with a mean gradient of 20 mmHg. The mitral valve appeared to be mildly thickened with evidence of moderate to severe mitral regurgitation. There was evidence of reversal of flow right lower pulmonary vein. Tricuspid valve showed evidence of moderate tricuspid regurgitation. No evidence of pericardial effusion CONCLUSION: 1. Intact interatrial septum with no evidence of patent foramen ovale. Normal left atrial appendage without any thrombus 2. Bicuspid aortic valve fusion of the right and left coronary cusps and evidence off moderate aortic stenosis and mean gradient of mercury 3. Thickened anterior and posterior mitral leaflets with moderate to severe mitral regurgitation with a central jet. There was evidence of reversal of flow in the right lower pulmonary vein 4. Moderate tricuspid regurgitation 5. Normal biventricular dimension and systolic function 6. No evidence of pericardial effusion
--- NOTE | 2022-05-15 12:52 | P.PN ---
Subjective Progress Note Date: 05/15/22 The patient is seen at baseline and continues to feel back to baseline. She just completed CORRY today in the AM. Objective - Vital Signs Vital signs: Vital Signs Temp 98 F 05/15/22 12:06 Pulse 66 05/15/22 12:06 Resp 16 05/15/22 12:06 BP 133/77 05/15/22 12:06 Pulse Ox 95 05/15/22 12:06 FiO2 Intake & Output 05/14/22 05/15/22 05/15/22 18:59 06:59 18:59 Intake Total 240 Balance 240 Intake: Oral 240 Other: # Voids 3 3 - Exam GENERAL: The patient is lying in bed and is not in acute distress. NEUROLOGICAL: Higher mental function: The patient is awake, alert, oriented to self, place and time. Patient is following commands. No aphasia and no neglect. Cranial nerves: The pupils are round, equal and reactive to light and accommoda tion. Visual lemos are full to confrontation throughout. Extraocular movement is intact no nystagmus is noted. Facial sensation is normal to touch throughout. The facial strength is normal throughout. Hearing is normal bilaterally to hand rub. Tongue is midline and moved [id number] without any difficulty. No dysarthria is noted. Shoulder shrug is normal bilaterally. Motor: Gait is normal. The strength is limited in proximal right shoulder because of fracture in past but had at least 4+ (fell walking on a toy and resulted in fracture right shoulder/arm). Otherwise 5 over 5 throughout. Normal tone and bulk. Cerebellum: Normal finger to nose heel to arvizu bilaterally. Sensation: Sensation is normal to touch throughout. Reflexes (right/left): 2+ throughout. Plantars are downgoing bilaterally. Some of the workup during this hospital visit consisted of: CT of the head is reported as no acute intracranial process. Nonspecific white matter changes, likely secondary to chronic small vessel ischemic disease. I personally could not review the images because of issues with the system CT angiography of the head and neck was reported as no evidence of dissection of the cervical internal carotid arteries or vertebral arteries or any evidence of significant stenosis at the carotid bifurcation. No evidence of intracranial high-grade stenosis or intracranial aneurysm. Code stroke was activated by the ED team and she had NIH of a 2. She had left facial droop and some slurred speech. The ED team spoke with the stroke attending (Dr. Manzanares) and the no IV TPA since low NIH stroke scale and the risks outweigh the benefit. EKG is reported as sinus rhythm. ST elevation and moderate T-wave abnormality, consider lateral ischemia. Abnormal EKG. Lipid panel is triglyceride of 216, cholesterol 169, LDLs 81 and HDL 44. Routine EEG: Limited routine EEG because of electrode artifact. Otherwise, the background is normal. There is no focal slowing, epileptiform discharge or seizure on the EEG. A normal routine EEG does not exclude underlying epilepsy. Clinical correlation recommended. MRI Brain is reported as no MRI evidence for recent artifact. Mild to moderate diffuse cerebral atrophy and nonspecific white matter changes favor product of chronic small vessel ischemic change in patient of this age. No suspicious enhancement seen. I personally could not review MRI because issues with system. - Labs CBC & Chem 7: 05/14/22 06:04 05/14/22 06:04 Labs: Abnormal Lab Results - Last 24 Hours (Table) 05/14/22 05/14/22 05/15/22 Range/Units 17:41 20:25 06:11 POC Glucose (mg/dL) 316 H 364 H 168 H (70-110) mg/dL 05/15/22 Range/Units 12:01 POC Glucose (mg/dL) 135 H (70-110) mg/dL Assessment and Plan Assessment: * Transient episode of right facial droop and expressive aphasia (lasting 1-1.5 hours). Likely probable TIA (especially with her multiple risk factors). Does not appear seizure. EEG does not reveal any seizure or discharges. MRI Brain is negative for acute/subacute stroke and no enhancement. * History of repeated TIA in beginning of April 2022 a she had slurring of the words and similar one as above in late April while at vascular surgeon. * Atrial fibrillation status post ablation on Eliquis * History of right breast cancer status post lumpectomy in * History of coronary artery disease status post CABG * Diabetes mellitus * Hypertension Plan: On her home dose of aspirin 81 as well as Eliquis 5mg 1 tab bid. I stopped home ASA since failed and placed on Plavix 75mg daily. Continue Lipitor 40mg qhs for secondary stroke prophylaxis.. If continues to have symptoms recommend prolonged EEG (ambulatory EEG) as outpatient. Cardiology is on board. She had CORRY today in the morning and it is reported as NO PFO. Normal left atrial appendage without any throubus. Moderate to severe mitratral regurgitation and with evidence of reversal of flow in the right lower pulmonary vein. Moderate tricuspid regurgitation. PT, OT and FRAME OPERATOR are consulted Continue neuro checks On cardiac monitoring We'll defer the rest of the medical management to primary team For DVT prophylaxis the patient is on Eliquis. Recommend patient to follow-up with neurologist as outpatient within 1-2 weeks as outpatient. The plan was discussed with the patient, her daughter who is at bedside. Otherwise no additional work-up is needed from neurological perspective. Time with Patient: Less than 30
[2022-05-15] MEDS: METOPROLOL SUCCINATE (ER) 25 MG TAB.ER.24H PO SCH (12:55)
[2022-05-15 14:31] VITALS: BP 141/71; PULSE 102; RESP 17; TEMP 98.1
--- NOTE | 2022-05-15 16:44 | P.DS ---
Providers Date of admission: 05/14/22 11:28 Expected date of discharge: 05/15/22 Attending physician: Andrey Moore Consults: 05/13/22 14:19 Consult Physician Urgent Consulting Provider: Morro Black Consult Reason/Comments: left sided facial droop, expressive aphasia, tia Do you want consulting provider notified?: Yes 05/14/22 13:51 Consult Physician Urgent Consulting Provider: Rigoberto Bradshaw Consult Reason/Comments: Evaluate for CORRY, recurrent TIAs 3 in last month Do you want consulting provider notified?: Yes Primary care physician: Pranav Doe MD Hospital Course: Hospital Course: Patient is a very pleasant 76-year-old female with a past medical history of CAD with CABG 2, paroxysmal atrial fibrillation status post cardiac ablation on anticoagulation with Eliquis, breast cancer status post lumpectomy, hypertension, hyperlipidemia, insulin-dependent diabetes mellitus, and previous TIAs. She presented to the emergency department with a chief complaint of left- sided facial droop, garbled speech, word finding difficulties, and noted difficulties with balance. Patient's daughter at bedside reports this episode lasted approximately one hour and then spontaneously resolved. She reports this has been her mother's third episode in the past month with initial TIA being diagnosed here at our facility on 04/09/22. Upon evaluation patient is currently alert to person, time, place, and situation. Speech was clear and GCS 2 through 12 are intact with no noted neurological deficits at this time. She denies experiencing any headaches, lightheadedness, dizziness, changes in her vision or hearing, chest pain or palpitations, shortness of breath, nausea or vomiting, or experiencing any numbness/tingling/weakness in her extremities. Patient underwent full evaluation in the emergency department. EKG completed showing normal sinus rhythm at 70 bpm with T-wave inversion in leads lateral leads aVL, V4 through V6. Chest x-ray negative for acute cardiopulmonary process revealing concerns of a full-thickness rotator cuff tear in the right. CT head negative for acute intercranial process. CTA head and neck negative for evidence of dissection or any significant stenosis on carotid bifurcations and negative for intracranial high-grade stenosis or intercranial aneurysms. CBC, coags, and CMP showing no significant abnormalities. Blood glucose slightly elevated at 205 and renal function revealing prerenal azotemia with BUN of 28. Urinalysis negative for infection. Patient admitted under services of consultation to neurology. Secondary to concerns that this is the third neurological event within the past month, patient to undergo MRI and EEG per neurology recommendations. 05/15/2022: Patient is made inpatient and I assumed care of the patient today from sound physicians. saw the patient earlier today. In bed. Comfortable. Daughter the bedside. Feeling well. Patient underwent CORRY. Results noted. Patient follow-up with neurology and cardiology outpatient. EEG was unremarkable. MRI brain was unremarkable. On exam: White count is: 98, 66, 16, 133.77, 95% room air Gen. appearance: Sitting on bed, awake, comfortable Cardiovascular: First seconds are normal, no edema Respiratory: Effort normal, lungs clear Psychiatry: AO 3, mood and affect normal INVESTIGATIONS, reviewed in the clinical context: CORRY: Bicuspid aortic valve fusion evidence of moderate aortic stenosis, moderate to severe MR moderate TR Brain MRi: Chronic changes: EEG: Negative for seizure activity CT angiogram brain: Unremarkable Assessment and plan: -Probable TIA with element of right facial droop and expressive aphasia lasting about one half hours. MRI brain negative for stroke. Patient on eliquis. And Plavix -Bicuspid aortic valve fusion with moderate aortic stenosis Follow outpatient with cardiology -Moderate to severe MR, moderate TR Follow outpatient with cardiology -Paroxysmal atrial fibrillation -Diabetes mellitus type 2 -Hyperlipidemia -Essential hypertension -CAD with a prior history of bypass -Depression Disposition: Home Patient Condition at Discharge: Stable Plan - Discharge Summary New Discharge Prescriptions: New Atorvastatin [Lipitor] 40 mg PO DAILY #30 tab Clopidogrel [Plavix] 75 mg PO DAILY #30 tab Continue Losartan Potassium [Cozaar] 25 mg PO HS Apixaban [Eliquis] 5 mg PO BID #60 tab metFORMIN HCL [Glucophage] 1,000 mg PO BID Venlafaxine HCl ER [Effexor XR] 150 mg PO DAILY Slow-Mag 71.5mg 143 mg PO BID Metoprolol Succinate [Toprol XL] 25 mg PO DAILY #0 Insulin Detemir [Levemir Flextouch Pen] 20 unit SQ HS Venlafaxine HCl [Effexor XR] 75 mg PO DAILY Discontinued Aspirin 81 mg PO DAILY 30 Days #30 tab Atorvastatin [Lipitor] 20 mg PO DAILY 30 Days #30 tab Discharge Medication List Losartan Potassium [Cozaar] 25 mg PO HS 03/31/18 [History] Apixaban [Eliquis] 5 mg PO BID #60 tab 09/27/18 [Rx] metFORMIN HCL [Glucophage] 1,000 mg PO BID 05/19/18 [History] Slow-Mag 71.5mg 143 mg PO BID 12/06/18 [History] Venlafaxine HCl ER [Effexor XR] 150 mg PO DAILY 12/06/18 [History] Metoprolol Succinate [Toprol XL] 25 mg PO DAILY #0 12/16/18 [Rx] Insulin Detemir [Levemir Flextouch Pen] 20 unit SQ HS 06/06/20 [History] Venlafaxine HCl [Effexor XR] 75 mg PO DAILY 04/09/22 [History] Atorvastatin [Lipitor] 40 mg PO DAILY #30 tab 05/15/22 [Rx] Clopidogrel [Plavix] 75 mg PO DAILY #30 tab 05/15/22 [Rx] Follow up Appointment(s)/Referral(s): neurology,dr [Other] - 2 Weeks Pranav Doe MD [Primary Care Provider] - 1-2 days Rigoberto Bradshaw MD [STAFF PHYSICIAN] - 2 Weeks
[2022-05-16] MEDS ORDERED: CLOPIDOGREL 75 MG TAB PO SCH (09:00)
== END 2022-05-15 16:25 | disposition home or self-care (01) | DRG 69 ==
LOC: EC 11:54 → 6NMEDSUR 14:19 → OBSVTOIN 05-14 11:28
PROVIDERS: ADMIT Hospitalist; ATTEND Hospitalist
PROC: B24BZZ4 Ultrasonography of Heart with Aorta, Transesophageal (ICD-10-PCS; principal; 2022-05-15 11:25)
DX: G45.9 Transient cerebral ischemic attack, unspecified (principal); I47.1 Supraventricular tachycardia; R47.01 Aphasia; Q23.1 Congenital insufficiency of aortic valve; I27.20 Pulmonary hypertension, unspecified; I10 Essential (primary) hypertension; E11.65 Type 2 diabetes mellitus with hyperglycemia; F32.A Depression, unspecified; I08.1 Rheumatic disorders of both mitral and tricuspid valves; I48.0 Paroxysmal atrial fibrillation; E78.5 Hyperlipidemia, unspecified; I25.10 Atherosclerotic heart disease of native coronary artery without angina pectoris; R29.810 Facial weakness; R79.89 Other specified abnormal findings of blood chemistry; R01.1 Cardiac murmur, unspecified; Z86.73 Personal history of transient ischemic attack (TIA), and cerebral infarction without residual deficits; Z95.1 Presence of aortocoronary bypass graft; Z87.891 Personal history of nicotine dependence; Z79.899 Other long term (current) drug therapy; Z79.84 Long term (current) use of oral hypoglycemic drugs; Z79.82 Long term (current) use of aspirin; Z79.4 Long term (current) use of insulin; Z79.02 Long term (current) use of antithrombotics/antiplatelets; Z79.01 Long term (current) use of anticoagulants; Z88.2 Allergy status to sulfonamides; Z88.1 Allergy status to other antibiotic agents
CPT/HCPCS: 36415; 70450; 70496; 70498; 70553; 71046; 80048; 80053; 80061; 81003; 84484; 85025; 85610; 85730; 93005; 93312; 93320; 93325; 95816; 99291

== ENCOUNTER 2023-12-06 17:54 | Observation (INO) | payer MEDICARE, BC ==
--- NOTE | 2023-12-06 18:33 | ED ---
General Adult HPI - General Chief complaint: Neuro Symptoms/Deficit Stated complaint: Headache, lethargic Time Seen by Provider: 12/06/23 18:23 Source: patient Mode of arrival: ambulatory Limitations: no limitations - History of Present Illness Initial comments: Dictation was produced using [employer] dictation software. please excuse any grammatical, word or spelling errors. Chief Complaint: 78-year-old female with past medical history of TIA presents to the ER for strokelike symptoms History of Present Illness: Patient 70-year-old female presents emergency department strokelike symptoms approximately 2 hours prior to arrival patient had an episode that lasted 10 minutes. Her symptoms were described as nonsensical speech. Patient did not seem frustrated by what she was saying. Daughter at the bedside states that they were at the park when all of a sudden her symptoms became apparent. She was trying to tell a story however was not making any sense. Since being in the emergency department her symptoms have resolved. She has had a TIA in the past. Apparently patient takes anticoagulation medications. Patient Nuys any headaches. Denies any other complaints. The ROS documented in this emergency department record has been reviewed and confirmed by me. Those systems with pertinent positive or negative responses have been documented in the HPI. All other systems are other negative and/or noncontributory. - Related Data Home Medications Medication Instructions Recorded Confirmed Losartan Potassium [Cozaar] 25 mg PO HS 03/31/18 05/13/22 metFORMIN HCL [Glucophage] 1,000 mg PO BID 05/19/18 05/13/22 Slow-Mag 71.5mg 143 mg PO BID 12/06/18 05/13/22 Venlafaxine HCl ER [Effexor XR] 150 mg PO DAILY 12/06/18 05/13/22 Insulin Detemir [Levemir Flextouch 20 unit SQ HS 06/06/20 05/13/22 Pen] Venlafaxine HCl [Effexor XR] 75 mg PO DAILY 04/09/22 05/13/22 Previous Rx's Medication Instructions Recorded Apixaban [Eliquis] 5 mg PO BID #60 tab 04/03/18 Metoprolol Succinate [Toprol XL] 25 mg PO DAILY #0 12/16/18 Atorvastatin [Lipitor] 40 mg PO DAILY #30 tab 05/15/22 Clopidogrel [Plavix] 75 mg PO DAILY #30 tab 05/15/22 Allergies Allergy/AdvReac Type Severity Reaction Status Date / Time Sulfa (Sulfonamide Allergy Rash/Hives Verified 05/13/22 13:34 Antibiotics) sulfamethoxazole Allergy Rash/Hives Verified 05/13/22 13:34 [From Bactrim] trimethoprim [From Bactrim] Allergy Rash/Hives Verified 05/13/22 13:34 Review of Systems ROS Statement: Those systems with pertinent positive or pertinent negative responses have been documented in the HPI. ROS Other: All systems not noted in ROS Statement are negative. Past Medical History Past Medical History: Atrial Fibrillation, Cancer, CVA/TIA, Diabetes Mellitus, Hyperlipidemia, Hypertension, Respiratory Disorder Additional Past Medical History / Comment(s): See Dr Mckee's H&P. Hx breast cancer in 2005 with lumpectomy and radiation. BILATERAL PLEURAL EFFUSIONS. TIA November 01 History of Any Multi-Drug Resistant Organisms: None Reported Past Surgical History: Breast Surgery, Coronary Bypass/CABG, Hernia Repair, Orthopedic Surgery, Tubal Ligation Additional Past Surgical History / Comment(s): Surgery for broken arm, CABG X 2, ZELAYA to the LAD, SVG to the OM. POSSIBLE BILATERAL THORACENTESIS. Ablation, EPS, cardioversion., Past Anesthesia/Blood Transfusion Reactions: No Reported Reaction Past Psychological History: Depression Smoking Status: Former smoker Past Alcohol Use History: Rare Past Drug Use History: None Reported - Past Family History Sister(s) Family Medical History: Cancer, Pulmonary Embolus Additional Family Medical History / Comment(s): Lung cancer. General Exam - General Exam Comments Initial Comments: PHYSICAL EXAM: General Impression: Alert and oriented x3, not in acute distress HEENT: Normocephalic atraumatic, extra-ocular movements intact, pupils equal and reactive to light bilaterally, mucous membranes moist. Cardiovascular: Heart regular rate and rhythm Chest: Able to complete full sentences, no retractions, no tachypnea Abdomen: abdomen soft, non-tender, non-distended, no organomegaly Musculoskeletal: Pulses present and equal in all extremities, no peripheral edema Motor: no focal deficits noted Neurological: CN II-XII grossly intact, no focal motor or sensory deficits noted, NIH 0 Skin: Intact with no visualized rashes Psych: Normal affect and mood Limitations: no limitations Course Vital Signs 12/06/23 12/06/23 18:09 18:19 Temperature 98.8 F Pulse Rate 90 89 Respiratory 18 17 Rate Blood Pressure 192/76 186/89 O2 Sat by Pulse 95 94 L Oximetry EKG Findings - EKG Comments: EKG Findings:: My EKG interpretation: Ventricular rate 91, sinus rhythm,. 184, QRS 85, QTc 410. No CO prolongation, no QTC prolongation, no ST or T-wave changes noted. EKG compared to May 13, 2022 showing no changes. Overall, this EKG is unremarkable Medical Decision Making - Medical Decision Making Was pt. sent in by a medical professional or institution (, PA, DISPUTE SPECIALIST, urgent care, hospital, or custodial...) When possible be specific @ -No Did you speak to anyone other than the patient for history (EMS, parent, family, police, friend...)? What history was obtained from this source @ -No Did you review nursing and triage notes (agree or disagree)? Why? @ -I reviewed and agree with nursing and triage notes Were old charts reviewed (outside hosp., previous admission, EMS record, old EKG, old radiological studies, urgent care reports/EKG's, custodial records)? Report findings @ -No old charts were reviewed Differential Diagnosis (chest pain, altered mental status, abdominal pain women, abdominal pain men, vaginal bleeding, musculoskeletal, weakness, fever, dyspnea, syncope, headache, dizziness, GI bleed, back pain, seizure, CVA, palpatations, mental health)? @ - Differential CVA: Ischemic stroke, hemorrhagic stroke, brain tumor, atypical migraine, Wernicke's encephalopathy, seizure, multiple sclerosis, meningitis, encephalitis, hypoglycemia, Guillain-Kwok, electrolytes disturbance, myasthenia gravis.... This is not meant to be an all-inclusive list EKG interpreted by me (3pts min.). @ -See above X-rays interpreted by me (1pt min.). @ -Chest x-ray is nonacute CT interpreted by me (1pt min.). @ -Pending U/S interpreted by me (1pt. min.). @ -None done What testing was considered but not performed or refused? (CT, X-rays, U/S, labs)? Why? @ -None What meds were considered but not given or refused? Why? @ -None Did you discuss the management of the patient with other professionals (professionals i.e. , PA, DISPUTE SPECIALIST, lab, RT, psych nurse, social insurance adviser, institutional research coordinator, teacher, collection officer, correctional case records supervisor)? Give summary @ -No Was smoking cessation discussed for >3mins.? @ -No Was critical care preformed (if so, how long)? @ -No Were there social determinants of health that impacted care today? How? (Homelessness, low income, unemployed, alcoholism, drug addiction, transportation, low edu. Level, literacy, decrease access to med. care, longterm, rehab)? @ -No Was there de-escalation of care discussed even if they declined (Discuss DNR or withdrawal of care, Hospice)? DNR status @ -No What co-morbidities impacted this encounter? (DM, HTN, Smoking, COPD, CAD, Cancer, CVA, ARF, Chemo, Hep., AIDS, mental health diagnosis, sleep apnea, morbid obesity)? @ -None Was patient admitted / discharged? Hospital course, mention meds given and route, prescriptions, significant lab abnormalities, going to OR and other pertinent info. @ -70-year-old female presents to the emergency department with clinical presentation consistent with transient ischemic attack. Vital signs stable. Patient is NIH is 0 at the bedside. Laboratory evaluation is unremarkable. Chest x-ray is nonacute. CT imaging ordered. Patient reevaluated bedside at 8:53 PM still NIH of 0. Patient will be admitted for TIA with consultation to neurology. Undiagnosed new problem with uncertain prognosis? @ -No Drug Therapy requiring intensive monitoring for toxicity (Heparin, Nitro, Insulin, Cardizem)? @ -No Were any procedures done? @ -No Diagnosis/symptom? Acute, or Chronic, or Acute on Chronic? Uncomplicated (without systemic symptoms) or Complicated (systemic symptoms)? @ -TIA Side effects of treatment? @ -No Exacerbation, Progression, or Severe Exacerbation? @ -No Poses a threat to life or bodily function? How? (Chest pain, USA, NC, pneumonia, PE, COPD, DKA, ARF, appy, cholecystitis, CVA, Diverticulitis, Homicidal, Suicidal, threat to staff... and all critical care pts) @ -yes - Lab Data Result diagrams: 12/06/23 18:54 12/06/23 18:54 Lab Results 12/06/23 12/06/23 12/06/23 Range/Units 18:54 18:54 18:54 WBC 9.1 (3.8-10.6) k/uL RBC 3.81 (3.80-5.40) m/uL Hgb 12.5 (11.4-16.0) gm/dL Hct 36.6 (34.0-46.0) % MCV 96.1 (80.0-100.0) fL MCH 32.8 (25.0-35.0) pg MCHC 34.1 (31.0-37.0) g/dL RDW 13.6 (11.5-15.5) % Plt Count 152 (150-450) k/uL MPV 7.7 Neutrophils % 85 % Lymphocytes % 7 % Monocytes % 4 % Eosinophils % 2 % Basophils % 0 % Neutrophils # 7.7 (1.3-7.7) k/uL Lymphocytes # 0.6 L (1.0-4.8) k/uL Monocytes # 0.4 (0-1.0) k/uL Eosinophils # 0.2 (0-0.7) k/uL Basophils # 0.0 (0-0.2) k/uL PT 10.7 (10.0-12.5) sec INR 1.0 (<1.2) APTT 24.7 (22.0-30.0) sec Sodium 133 L (137-145) mmol/L Potassium 4.4 (3.5-5.1) mmol/L Chloride 99 (98-107) mmol/L Carbon Dioxide 29 (22-30) mmol/L Anion Gap 5 mmol/L BUN 23 H (7-17) mg/dL Creatinine 0.99 (0.52-1.04) mg/dL Est GFR (CKD-EPI)AfAm 63 (>60 ml/min/1.73 sqM) Est GFR (CKD-EPI)NonAf 55 (>60 ml/min/1.73 sqM) Glucose 195 H (74-99) mg/dL POC Glucose (mg/dL) (70-110) mg/dL POC Glu Air Conditioning Engineer ID Calcium 9.2 (8.4-10.2) mg/dL 12/06/23 Range/Units 18:56 WBC (3.8-10.6) k/uL RBC (3.80-5.40) m/uL Hgb (11.4-16.0) gm/dL Hct (34.0-46.0) % MCV (80.0-100.0) fL MCH (25.0-35.0) pg MCHC (31.0-37.0) g/dL RDW (11.5-15.5) % Plt Count (150-450) k/uL MPV Neutrophils % % Lymphocytes % % Monocytes % % Eosinophils % % Basophils % % Neutrophils # (1.3-7.7) k/uL Lymphocytes # (1.0-4.8) k/uL Monocytes # (0-1.0) k/uL Eosinophils # (0-0.7) k/uL Basophils # (0-0.2) k/uL PT (10.0-12.5) sec INR (<1.2) APTT (22.0-30.0) sec Sodium (137-145) mmol/L Potassium (3.5-5.1) mmol/L Chloride (98-107) mmol/L Carbon Dioxide (22-30) mmol/L Anion Gap mmol/L BUN (7-17) mg/dL Creatinine (0.52-1.04) mg/dL Est GFR (CKD-EPI)AfAm (>60 ml/min/1.73 sqM) Est GFR (CKD-EPI)NonAf (>60 ml/min/1.73 sqM) Glucose (74-99) mg/dL POC Glucose (mg/dL) 211 H (70-110) mg/dL POC Glu Air Conditioning Engineer ID Gabriela Clements Calcium (8.4-10.2) mg/dL Disposition Clinical Impression: TIA (transient ischemic attack) Disposition: ADMITTED IP TO THIS HOSP Condition: Fair Referrals: Cassandra Galloway MD [Primary Care Provider] - 1-2 days Decision Time: 20:54
[2023-12-06 18:57] LABS: Glucose,Whole Blood 211 mg/dL (70-110)
[2023-12-06 19:01] LABS: Basophils % (A) 0 %; Eosinophils # (A) 0.2 k/uL (0-0.7); Eosinophils % (A) 2 %; HCT 36.6 % (34.0-46.0); HGB 12.5 gm/dL (11.4-16.0); Lymphocytes # (A) 0.6 k/uL (1.0-4.8); Lymphocytes % (A) 7 %; MCH 32.8 pg (25.0-35.0); MCHC 34.1 g/dL (31.0-37.0); MCV 96.1 fL (80.0-100.0); Mean Platelet Volume 7.7; Monocytes # (A) 0.4 k/uL (0-1.0); Monocytes % (A) 4 %; Neutrophils # (A) 7.7 k/uL (1.3-7.7); Neutrophils % (A) 85 %; Platelet Count 152 k/uL (150-450); RBC 3.81 m/uL (3.80-5.40); RDW 13.6 % (11.5-15.5); WBC 9.1 k/uL (3.8-10.6)
[2023-12-06 19:15] LABS: Partial Thromboplastin Time 24.7 sec (22.0-30.0); Prothrombin Time 10.7 sec (10.0-12.5)
[2023-12-06 19:22] LABS: African American GFR (CKD) 63 (>60 ml/min/1.73 sqM); Anion Gap 5 mmol/L; Blood Urea Nitrogen 23 mg/dL (7-17); Calcium 9.2 mg/dL (8.4-10.2); Carbon Dioxide 29 mmol/L (22-30); Chloride 99 mmol/L (98-107); Glucose 195 mg/dL (74-99); Non-African American GFR(CKD) 55 (>60 ml/min/1.73 sqM); Potassium 4.4 mmol/L (3.5-5.1); Sodium 133 mmol/L (137-145)
[2023-12-06] MEDS ORDERED: NALOXONE 0.4 MG/ML 1 ML VIAL IV PRN (20:42)
--- NOTE | 2023-12-06 21:23 | CT ---
EXAMINATION TYPE: CT brain wo con CT DLP: 1591.9 mGycm, Automated exposure control for dose reduction was used. DATE OF EXAM: 12/06/2023 7:40 PM COMPARISON: None.. CLINICAL INDICATION:Female, 78 years old with history of tia, Weakness, neuro deficit. Prior TIA. TECHNIQUE: Brain: Axial CT images of the brain were obtained with coronal and sagittal reformats created and rev iewed. Contrast used: None. Oral contrast used: None. FINDINGS: Extra-axial spaces: No abnormal extra-axial fluid collections. Basilar cisterns are patent. Ventricular system: Ventricles appear dilated in proportion to the degree of cerebral atrophy. Cerebral parenchyma: No increased attenuation to suggest acute intraparenchymal hemorrhage. The gra y-white matter interface appears maintained. Moderate generalized brain atrophy. Scattered hypoatte nuating areas are seen within the cerebral white matter, nonspecific but most often seen with chronic microvascular ischemic changes; moderate in degree. Cerebellum: No acute abnormality. Mass effect: No evidence of mass effect or midline shift. Intracranial vasculature: Atherosclerotic calcifications of the larger arteries near the skull base. Soft tissues: No acute or concerning abnormality. Visualized orbits: Orbital contents appear grossly intact. Calvarium/osseous structures: No evidence of calvarial fracture. Paranasal sinuses and mastoid air cells: Clear. MRI is more sensitive for detecting acute processes such as infarct, and may be considered if clinica lly warranted. IMPRESSION: No acute intracranial CT abnormality.
--- NOTE | 2023-12-06 21:27 | XR ---
EXAM: XR chest 1V portable CLINICAL INDICATION:Female, 78 years old with history of tia; PHH COMPARISON: 05/13/2022 TECHNIQUE: Chest single view. FINDINGS: Lines/tubes/devices: EKG leads overlie the chest. No indwelling lines are seen. Sternal wires are re demonstrated, some broken but not significantly displaced. Cardiomediastinum: Cardiac silhouette appears upper normal in size. Unremarkable mediastinal silhouette. Vasculature: No increased pulmonary vasculature. Lungs/pleura: Chronic appearing mild interstitial changes in the lungs. No consolidation, sizeable effusion, or visible pneumothorax. Bones/soft tissues: Bony thorax appears grossly intact as seen. There again appears to be mild deformities in the right i nferolateral rib cage which are likely sequela of previous traumatic injuries. Moderate degenerative changes of bilateral shoulders and spine. IMPRESSION: No acute cardiopulmonary findings.
[2023-12-06] MEDS: ASPIRIN 81 MG PO STA (21:36)
[2023-12-06] MEDS: SODIUM CHLORIDE 0.9% 1,000 ML IV SCH (21:39)
--- NOTE | 2023-12-06 22:20 | CT ---
EXAMINATION TYPE: CT angio head neck DATE OF EXAM: 12/06/2023 7:55 PM COMPARISON: Same day CT head and older studies. CLINICAL INDICATION:Female, 78 years old with history of neurologic defecit; PHH, Weakness, neuro def icit. Prior TIA. TECHNIQUE: Axially acquired helical CT angiogram of the head and neck was obtained with contrast. Axi al images are supplemented with 3D reconstructions which [facility] NASCET criteria used. Contrast used: 65 cc mL of Isovue 370 without and with IV Contrast, Oral contrast used: None. CT DLP: 1591.9 mGycm, Automated exposure control for dose reduction was used. FINDINGS: CTA Neck: Moderate diffuse atherosclerotic changes throughout, primarily calcified. 3 vessel aortic arch is alex wn with mild narrowings of the proximal branch vessels. On the right at the bifurcation and proximal ICA there is mixed plaque with estimated 75-80%. ICAs al so tortuous taking a retropharyngeal course. Vessel is patent to the skull base. Moderate disease the proximal ECAs well. On the left, there is atherosclerotic disease with about 50-60% diameter stenosis of proximal ICA. Ve ssel is then seen to be rather tortuous but patent to the skull base. The vertebral arteries show no significant stenosis on the left, mild stenosis on the right due to ca lcific plaque at its origin. The left vertebral is dominant. The pulmonary trunk is enlarged at 3.4 cm, this can be seen with pulmonary hypertension. No embolus i s seen in the visualized segments. A filling of the show mild scarring and emphysematous changes, no acute consolidation or pneumothorax. Mild/moderate degenerative changes of the cervical spine without critical canal or foraminal stenosis suggested. Multiple sternotomy wires. CTA Head: There are calcifications of the bilateral siphon portions of the ICAs with mild/moderate diffuse sten osis. Carotid termini are patent. Bilateral MCAs and ACAs appear patent. The ACAs are tortuous. Anter ior communicating artery is not clearly seen.. Intracranial vertebral arteries enhance normally. Circumferential calcification of the mid left great er than right V4 segments with mild stenoses. Basilar artery is normally patent. The basilar bifurcat ion is patent, there is no evidence of aneurysm. Proximal triage licensed practical nurse are patent. No sizable posterior communicating arteries are seen. No intracranial large vessel occlusion, hemodynamically significant stenosis, aneurysm, dissection, o r arteriovenous malformation is shown. No clear evidence of dural venous sinus thrombosis. The right transverse and sigmoid sinuses are enhancing and appears significantly larger than the left, which se ems rather diminutive. Other: Please refer to same-day CT head report.. If there is persistent concern, MR brain, MRA, MRV may be considered. IMPRESSION: CTA neck: 1. No dissection or pseudoaneurysm detected in the carotid or vertebral arteries in the neck. 2. Atherosclerotic disease is present, with stenosis approximately 50-60% in the proximal left ICA, and 75-80% stenosis in the proximal right ICA. CTA head: No intracranial large vessel occlusion, significant stenosis, or sizable aneurysm detected in the gallagher its of CTA.
--- NOTE | 2023-12-07 11:51 | P.HPIM ---
History of Present Illness Patient is a pleasant 78-year-old female with history of TIAs in the past and history of atrial fibrillation for which patient is on Eliquis and a systolic murmur in the aortic area came in with complaints of speech abnormality which l asted for few hours. Patient was seen in ER within 2 hours but unable to get tPA. Neurology was consulted. Patient had a CT angio of the head and neck which showed around 50% stenosis in left internal carotid and around 75% stenosis in the right ICA. Patient denies any other weakness or tingling numbness patient had a headache shortly after the symptoms which resolved at this time. Patient speech is normal at this time. REVIEW OF SYSTEMS: CONSTITUTIONAL: No fever, no malaise, no fatigue. HEENT: No recent visual problems or hearing problems. Denied any sore throat. CARDIOVASCULAR: No chest pain, orthopnea, PND, no palpitations, no syncope. PULMONARY: No shortness of breath, no cough, no hemoptysis. GASTROINTESTINAL: No diarrhea, no nausea, no vomiting, no abdominal pain. NEUROLOGICAL: , no weakness, no numbness. HEMATOLOGICAL: Denies any bleeding or petechiae. GENITOURINARY: Denies any burning micturition, frequency, or urgency. MUSCULOSKELETAL/RHEUMATOLOGICAL: Denies any joint pain, swelling, or any muscle pain. ENDOCRINE: Denies any polyuria or polydipsia. The rest of the 14-point review of systems is negative. PHYSICAL EXAMINATION: GENERAL: The patient is alert and oriented x3, not in any acute distress. Well developed, well nourished. HEENT: Pupils are round and equally reacting to light. EOMI. No scleral icterus. No conjunctival pallor. Normocephalic, atraumatic. No pharyngeal erythema. No thyromegaly. CARDIOVASCULAR: S1 and S2 present. No murmurs, rubs, or gallops. PULMONARY: Chest is clear to auscultation, no wheezing or crackles. ABDOMEN: Soft, nontender, nondistended, normoactive bowel sounds. No palpable organomegaly. MUSCULOSKELETAL: No joint swelling or deformity. EXTREMITIES: No cyanosis, clubbing, or pedal edema. NEUROLOGICAL: Gross neurological examination did not reveal any focal deficits. SKIN: No rashes. Assessment and plan -Aphasia: Appears to have motor aphasia concern for TIA and patient was monitored overnight for TIA echocardiogram will be obtained patient will be restarted back on Eliquis and Plavix. Neurology will evaluate the patient we will obtain lipid panel and will be restarted on statin. -Carotid stenosis as mentioned above, patient will need outpatient vascular surgery evaluation -Paroxysmal atrial fibrillation: Presently sinus rhythm will be resumed on anticoagulation as mentioned above -Type 2 diabetes mellitus uncontrolled elevated blood sugars patient will be resumed on home regimen along with sliding scale -History of CVA TIA in the past -Hypertension Problem mentioned chronic medical problems patient will be resumed on appropriate home medications DVT prophylaxis: On anticoagulation with Eliquis Past Medical History Past Medical History: Atrial Fibrillation, Cancer, CVA/TIA, Diabetes Mellitus, Hyperlipidemia, Hypertension, Respiratory Disorder Additional Past Medical History / Comment(s): See Dr Mckee's H&P. Hx breast cancer in 2005 with lumpectomy and radiation. BILATERAL PLEURAL EFFUSIONS. TIA November 01 History of Any Multi-Drug Resistant Organisms: None Reported Past Surgical History: Breast Surgery, Coronary Bypass/CABG, Hernia Repair, Orthopedic Surgery, Tubal Ligation Additional Past Surgical History / Comment(s): Surgery for broken arm, CABG X 2, ZELAYA to the LAD, SVG to the OM. POSSIBLE BILATERAL THORACENTESIS. Ablation, EPS, cardioversion., Past Anesthesia/Blood Transfusion Reactions: No Reported Reaction Past Psychological History: Depression Smoking Status: Former smoker Past Alcohol Use History: Rare Past Drug Use History: None Reported - Past Family History Sister(s) Family Medical History: Cancer, Pulmonary Embolus Additional Family Medical History / Comment(s): Lung cancer. Medications and Allergies Home Medications Medication Instructions Recorded Confirmed Type Apixaban [Eliquis] 5 mg PO BID #60 tab 04/03/18 12/06/23 Rx Venlafaxine HCl ER [Effexor XR] 150 mg PO DAILY 12/06/18 12/06/23 History Clopidogrel [Plavix] 75 mg PO DAILY #30 tab 05/15/22 12/06/23 Rx Glimepiride [Amaryl] 4 - 6 mg PO DAILY PRN 12/06/23 12/06/23 History Insulin Degludec [Tresiba 25 units SQ DAILY 12/06/23 12/06/23 History Flextouch U-100 Pen] Rosuvastatin [Crestor] 10 mg PO HS 12/06/23 12/06/23 History Allergies Allergy/AdvReac Type Severity Reaction Status Date / Time Sulfa (Sulfonamide Allergy Rash/Hives Verified 12/06/23 21:04 Antibiotics) sulfamethoxazole Allergy Rash/Hives Verified 12/06/23 21:04 [From Bactrim] trimethoprim [From Bactrim] Allergy Rash/Hives Verified 12/06/23 21:04 Physical Exam Vitals: Vital Signs Temp Pulse Resp BP Pulse Ox 12/07/23 06:53 75 16 143/77 96 12/07/23 04:00 78 18 149/80 95 12/07/23 00:00 78 18 161/74 93 L 12/06/23 18:19 89 17 186/89 94 L 12/06/23 18:09 98.8 F 90 18 192/76 95 Intake and Output 12/06/23 12/07/23 12/07/23 22:59 06:59 14:59 Other: Weight 68.039 kg Results CBC & Chem 7: 12/06/23 18:54 12/06/23 18:54 Labs: Abnormal Lab Results - Last 24 Hours (Table) 12/06/23 12/06/23 12/06/23 Range/Units 18:54 18:54 18:56 Lymphocytes # 0.6 L (1.0-4.8) k/uL Sodium 133 L (137-145) mmol/L BUN 23 H (7-17) mg/dL Glucose 195 H (74-99) mg/dL POC Glucose (mg/dL) 211 H (70-110) mg/dL
[2023-12-07 12:28] LABS: Glucose,Whole Blood 391 mg/dL (70-110)
[2023-12-07] MEDS: INSULIN ASPART (NovoLOG) 100 UNIT/ML VIAL SQ SCH (12:51)
[2023-12-07 16:51] LABS: Glucose,Whole Blood 306 mg/dL (70-110)
[2023-12-07] MEDS: APIXABAN 5 MG TAB PO SCH (20:34)
[2023-12-07] MEDS: ATORVASTATIN 20 MG TAB PO SCH (20:34)
[2023-12-07 20:40] LABS: Glucose,Whole Blood 240 mg/dL (70-110)
[2023-12-08 05:59] LABS: Glucose,Whole Blood 289 mg/dL (70-110)
[2023-12-08] MEDS: INSULIN DETEMIR (LEVEMIR) 100 UNIT/ML SYR SQ SCH (06:46)
[2023-12-08 09:31] LABS: LDL Cholesterol,Calculated 98.2 mg/dL (0.0-131.0)
--- NOTE | 2023-12-08 09:36 | P.CNNES ---
History of Present Illness Consult date: 12/07/23 Requesting physician: Arcadio Armstrong Reason for Consult: TIA History of Present Illness: Patient is a 78-year-old right-handed female with history of atrial fibrillation, previous history of multiple TIA, came to the hospital yesterday at 5:54 PM because of another TIA. Patient's daughter was also present, and they provided the history. About couple hours prior to arrival, patient had an episode, in which she could not speak properly. She had trouble putting sentences. She also had a headache and felt a little nauseous. The headache was dull, but would get worse on coughing. Her speech later slightly improved and she was just searching for the words last night. This morning all symptoms have resolved. The headache that started yesterday, lasted for only couple hours. At present she has no symptoms in all symptoms resolved. Patient denied any focal numbness, tingling, facial droop or any visual disturbance with this spell. Patient never gets any headache, therefore this headache was unusual. N o history of migraines. Vital signs on arrival blood pressure was 192/76, pulse rate 92 patient 98.8. Her blood pressure has now improved. Blood test shows normal CBC, PT/PTT, sodium 133 potassium 4.4. Hemoglobin A1c 8.5. CT head showed no acute process. On my review, there is evidence of an old lacune involving the left lateral basal ganglia. Chest x-ray showed no acute cardioverter process. EKG showed sinus rhythm with occasional supraventricular premature complexes. Patient has never smoked. Patient follows up with Dr. Leigh her youth accommodation support worker. She also follows up for Dr. Mckee for her history of cardiac ablation. Patient does take Eliquis 5 mg twice a day, Plavix 75 mg. Patient has been seen by our neurology team multiple times in the past. She had presented with TIA on 04/10/2022 when aspirin was added to the Eliquis. She had another TIA on 05/14/2022 and aspirin was switched to Plavix. She has been doing fine until last night. Review of Systems Completely unremarkable. Except as mentioned above in HPI. She does have right shoulder issues from previous fall. Headache resolved. Past Medical History Past Medical History: Atrial Fibrillation, Cancer, CVA/TIA, Diabetes Mellitus, Hyperlipidemia, Hypertension, Respiratory Disorder Additional Past Medical History / Comment(s): See Dr Mckee's H&P. Hx breast cancer in 2005 with lumpectomy and radiation. BILATERAL PLEURAL EFFUSIONS. TIA November 01 History of Any Multi-Drug Resistant Organisms: None Reported Past Surgical History: Breast Surgery, Coronary Bypass/CABG, Hernia Repair, Orthopedic Surgery, Tubal Ligation Additional Past Surgical History / Comment(s): Surgery for broken arm, CABG X 2, ZELAYA to the LAD, SVG to the OM. POSSIBLE BILATERAL THORACENTESIS. Ablation, EPS, cardioversion., Past Anesthesia/Blood Transfusion Reactions: No Reported Reaction Past Psychological History: Depression Smoking Status: Former smoker Past Alcohol Use History: Rare Past Drug Use History: None Reported - Past Family History Sister(s) Family Medical History: Cancer, Pulmonary Embolus Additional Family Medical History / Comment(s): Lung cancer. Medications and Allergies Home Medications Medication Instructions Recorded Confirmed Type Apixaban [Eliquis] 5 mg PO BID #60 tab 04/03/18 12/06/23 Rx Venlafaxine HCl ER [Effexor XR] 150 mg PO DAILY 12/06/18 12/06/23 History Clopidogrel [Plavix] 75 mg PO DAILY #30 tab 05/15/22 12/06/23 Rx Glimepiride [Amaryl] 4 - 6 mg PO DAILY PRN 12/06/23 12/06/23 History Insulin Degludec [Tresiba 25 units SQ DAILY 12/06/23 12/06/23 History Flextouch U-100 Pen] Rosuvastatin [Crestor] 10 mg PO HS 12/06/23 12/06/23 History Allergies Allergy/AdvReac Type Severity Reaction Status Date / Time Sulfa (Sulfonamide Allergy Rash/Hives Verified 12/06/23 21:04 Antibiotics) sulfamethoxazole Allergy Rash/Hives Verified 12/06/23 21:04 [From Bactrim] trimethoprim [From Bactrim] Allergy Rash/Hives Verified 12/06/23 21:04 Physical Examination - Vital Signs Vital Signs: Vital Signs Temp Pulse Resp BP Pulse Ox 12/07/23 13:00 79 17 147/87 95 12/07/23 06:53 75 16 143/77 96 12/07/23 04:00 78 18 149/80 95 12/07/23 00:00 78 18 161/74 93 L 12/06/23 18:19 89 17 186/89 94 L 12/06/23 18:09 98.8 F 90 18 192/76 95 Patient is an elderly female, very pleasant, in no acute distress. Patient is alert awake oriented to time place and person. Speech and language functions are normal. Patient can name and repeat very well. No aphasia or dysarthria. Attention, concentration and fund of knowledge is adequate. On cranial nerve examination, pupils are equal, round and reacting to light, visual lemos are full on confrontation, with no neglect on double simultaneous stimulation. Extraocular muscles are intact with no nystagmus. Face is symmetric, tongue protrudes to the midline. Palatal elevation and sensation normal, hearing and shoulder shrug normal, facial sensation normal. On muscle strength testing, there is no pronator drift and the strength is normal in arms and legs distally and proximally, except right shoulder, which is slightly stiff from previous issues from the fall. Deep tendon reflexes are symmetric 1 all over except ankles which is 0 and plantars are downgoing. Sensory to touch is equal with no neglect on double simultaneous stimulation. Cerebellar function showed no ataxia for [id number] testing. No dysdiadochokinesia. No ataxia for [id number] testing on either side. Tone and bulk of muscles normal. Gait deferred.. On general examination, there is no carotid bruit or murmur, S1-S2 audible. Chest is clear on consultation. Abdomen is soft nontender. No organomegaly, bowel sounds present. Peripheral pulses are present. No peripheral edema. Results - Laboratory Findings CBC and BMP: 12/06/23 18:54 12/06/23 18:54 Abnormal Lab Findings: Abnormal Labs 12/06/23 12/06/23 12/06/23 18:54 18:54 18:56 Lymphocytes # 0.6 L Sodium 133 L BUN 23 H Glucose 195 H POC Glucose (mg/dL) 211 H 12/07/23 12/07/23 12:26 16:49 Lymphocytes # Sodium BUN Glucose POC Glucose (mg/dL) 391 H 306 H Assessment and Plan Assessment: * TIA, manifesting with headache, nausea, and speech difficulty, that resolved after several hours. Since this morning, symptoms have completely resolved. Her current NIH stroke scale is 0. * Carotid stenosis, severe (75-80%) right side, moderate stenosis left side 50- 60%. * Paroxysmal atrial fibrillation, on Eliquis * Diabetes, not well controlled * Hypertension * Hyperlipidemia * Coronary artery disease Plan: * Patient had a TIA, and symptoms resolved. * CTA of head and neck revealed atherosclerotic disease is present with stenosis approximately 50-60% in the proximal left ICA and 75-80% stenosis in the proximal right ICA. * Consult vascular surgery for symptomatic carotid stenosis. Continue Plavix 75 mg daily. * 2-D echo has been completed, results pending. * Patient has history of paroxysmal atrial fibrillation, currently in sinus rhythm. Continue Eliquis. * Hemoglobin A1c 8.5. Recommend optimize control of diabetes to target A1c < 7.0. * Check fasting a.m. lipid panel. Patient was taking Crestor 10 mg at home. Currently on Lipitor 20 mg. * Dr. Morro Black will resume neurology service for Saturday morning. * Thank you for the consult.
[2023-12-08] MEDS: CLOPIDOGREL 75 MG TAB PO SCH (09:45)
[2023-12-08] MEDS: VENLAFAXINE HCL ER 150 MG CAP PO SCH (09:45)
[2023-12-08 12:08] LABS: Glucose,Whole Blood 277 mg/dL (70-110)
--- NOTE | 2023-12-08 13:48 | CA ---
Transthoracic Echo Report Name: Pricila Acuña Age: 78 Gender: F : 1945 Exam Date: 12/07/2023 14:42 Exam Location: [facility] Ht (in): 64 Wt (lb): 150 Ordering Physician: Chacorta Katz MD Attending/Referring Phys: Wildlife Rehabilitator Altagracia Frias RDCS Procedure CPT: Indications: tia Cardiac Hx: Technical Quality: Good Contrast 1: Total Dose (mL): Contrast 2: Total Dose (mL): MEASUREMENTS (Male / Female) Normal Values 2D ECHO LV Diastolic Diameter PLAX 4.3 cm 4.2 - 5.9 / 3.9 - 5.3 cm LV Systolic Diameter PLAX 2.7 cm IVS Diastolic Thickness 1.4 cm 0.6 - 1.0 / 0.6 - 0.9 cm LVPW Diastolic Thickness 1.4 cm 0.6 - 1.0 / 0.6 - 0.9 cm LV Relative Wall Thickness 0.7 RV Internal Dim ED PLAX 2.5 cm LVOT Diameter 2.0 cm LA Systolic Diameter LX 4.5 cm 3.0 - 4.0 / 2.7 - 3.8 cm LV Diastolic Volume MOD BP 50.1 cm??? 67 - 155 / 56 - 104 cm??? LV Systolic Volume MOD BP 16.1 cm??? 22 - 58 / 19 - 49 cm??? LV Ejection Fraction MOD BP 67.9 % >= 55 % LV Diastolic Volume MOD 4C 57.2 cm??? LV Systolic Volume MOD 4C 17.2 cm??? LV Ejection Fraction MOD 4C 69.9 % LV Diastolic Length 4C 6.1 cm LV Systolic Length 4C 5.3 cm LV Diastolic Volume MOD 2C 44.1 cm??? LV Systolic Volume MOD 2C 14.7 cm??? LV Ejection Fraction MOD 2C 66.6 % LV Diastolic Length 2C 6.1 cm LV Systolic Length 2C 5.2 cm LA Volume 89.7 cm??? 18 - 58 / 22 - 52 cm??? LA Volume Index 50.8 cm???/m??? 16 - 28 cm???/m??? M-MODE Aortic Root Diameter MM 3.1 cm LA Systolic Diameter MM 4.5 cm LA Ao Ratio MM 1.4 AV Cusp Separation MM 0.8 cm DOPPLER AV Peak Velocity 328.4 cm/s AV Peak Gradient 43.1 mmHg AV Mean Velocity 238.7 cm/s AV Mean Gradient 25.3 mmHg AV Velocity Time Integral 66.8 cm AI Peak Velocity 362.1 cm/s AI Peak Gradient 52.5 mmHg AI Pressure Half Time 758.9 ms LVOT Peak Velocity 96.9 cm/s LVOT Peak Gradient 3.8 mmHg LVOT Velocity Time Integral 19.3 cm LVOT Stroke Volume 62.8 cm??? LVOT Stroke Volume Index 36.3 ml/m??? AV Area Cont Eq vti 0.9 cm??? AV Area Cont Eq pk 1.0 cm??? TR Peak Velocity 356.6 cm/s TR Peak Gradient 50.9 mmHg Right Atrial Pressure 5.0 mmHg Pulmonary Artery Systolic Pressu 55.9 mmHg Right Ventricular Systolic Press 55.9 mmHg FINDINGS Left Ventricle Left ventricular ejection fraction is estimated at 55-60 %. Moderately increased septal wall thickness. Moderately increased posterior wall thickness. No obvious regional wall motion abnormalities. Left ventricular cavity size normal. Right Ventricle Normal right ventricular size and function. Moderate pulmonary hypertension. Right Atrium Mild right atrial dilatation. Left Atrium Moderately increased left atrial diameter. Severely increased left atrial volume. Mildly increased left atrial area. Mitral Valve Structurally normal mitral valve. Moderate mitral annular calcification. Moderate mitral regurgitation. Aortic Valve Aortic valve not well visualized. Moderate aortic stenosis with a peak gradient of 43 mmHg and a mean gradient of 23 mmHg. Mild aortic regurgitation. Diffuse thickening of the aortic valve cusps with reduced excursion. Tricuspid Valve Structurally normal tricuspid valve. [id number] tricuspid regurgitation. Pulmonic Valve Structurally normal pulmonic valve. Trace pulmonic regurgitation. No pulmonic stenosis. Pericardium No pericardial or pleural effusion. Aorta Normal size aortic root and proximal ascending aorta. CONCLUSIONS LVH with preserved systolic function Calcific aortic stenosis, moderate Previewed by: Dr. Bao Mckee MD (Electronically Signed) Final Date: 08 December 2023 13:47
--- NOTE | 2023-12-08 14:10 | P.GSCN ---
History of Present Illness Consult date: 12/08/23 Reason for Consult: Carotid stenosis, TIA History of present illness: 78-year-old female presents to the emergency department secondary to difficulty speaking, TIA which she states she has had multiple in the past. During her workup she had a CT angiogram of the neck which demonstrated significant stenosis in the right internal carotid artery measuring greater than 70%. She states her symptoms have resolved and she feels good currently. She denies any lateralizing symptoms such as weakness, vision changes or speech issues. She denies any fevers, chills, chest pain or shortness of breath. Review of Systems All systems: negative (What is mentioned in the HPI or past medical history) Past Medical History Past Medical History: Atrial Fibrillation, Cancer, CVA/TIA, Diabetes Mellitus, Hyperlipidemia, Hypertension, Respiratory Disorder Additional Past Medical History / Comment(s): See Dr Mckee's H&P. Hx breast cancer in 2005 with lumpectomy and radiation. BILATERAL PLEURAL EFFUSIONS. TIA November 01 History of Any Multi-Drug Resistant Organisms: None Reported Past Surgical History: Breast Surgery, Coronary Bypass/CABG, Hernia Repair, Orthopedic Surgery, Tubal Ligation Additional Past Surgical History / Comment(s): Surgery for broken arm, CABG X 2, ZELAYA to the LAD, SVG to the OM. POSSIBLE BILATERAL THORACENTESIS. Ablation, EPS, cardioversion., Past Anesthesia/Blood Transfusion Reactions: No Reported Reaction Past Psychological History: Depression Smoking Status: Former smoker Past Alcohol Use History: Rare Past Drug Use History: None Reported - Past Family History Sister(s) Family Medical History: Cancer, Pulmonary Embolus Additional Family Medical History / Comment(s): Lung cancer. Medications and Allergies Home Medications Medication Instructions Recorded Confirmed Type Apixaban [Eliquis] 5 mg PO BID #60 tab 04/03/18 12/06/23 Rx Venlafaxine HCl ER [Effexor XR] 150 mg PO DAILY 12/06/18 12/06/23 History Clopidogrel [Plavix] 75 mg PO DAILY #30 tab 05/15/22 12/06/23 Rx Glimepiride [Amaryl] 4 - 6 mg PO DAILY PRN 12/06/23 12/06/23 History Insulin Degludec [Tresiba 25 units SQ DAILY 12/06/23 12/06/23 History Flextouch U-100 Pen] Rosuvastatin [Crestor] 10 mg PO HS 12/06/23 12/06/23 History Allergies Allergy/AdvReac Type Severity Reaction Status Date / Time Sulfa (Sulfonamide Allergy Rash/Hives Verified 12/06/23 21:04 Antibiotics) sulfamethoxazole Allergy Rash/Hives Verified 12/06/23 21:04 [From Bactrim] trimethoprim [From Bactrim] Allergy Rash/Hives Verified 12/06/23 21:04 Surgical - Exam Vital Signs Temp Pulse Resp BP Pulse Ox 98.8 F 90 18 192/76 95 12/06/23 18:09 12/06/23 18:09 12/06/23 18:09 12/06/23 18:09 12/06/23 18:09 - General well developed, well nourished, no distress - Eyes PERRL - ENT normal pinna, normal nares - Neck no masses, no bruits - Respiratory normal expansion, normal respiratory effort - Cardiovascular Rhythm: regular - Abdomen Abdomen: soft, non tender - Integumentary no rash, no growths - Neurologic normal coordination, normal sensation - Musculoskeletal normal gait - Psychiatric oriented to time, oriented to person, oriented to place, speech is normal Results CTA neck demonstrates significant stenosis of the right internal carotid artery greater than 70%. - Labs 12/06/23 18:54 12/06/23 18:54 Abnormal Lab Results - Last 24 Hours (Table) 12/06/23 12/06/23 12/07/23 Range/Units 18:54 18:54 16:49 POC Glucose (mg/dL) 306 H (70-110) mg/dL Hemoglobin A1c 8.5 H (<=6.0) % Triglycerides 217.00 H (0.00-149.00) mg/dL VLDL Cholesterol, Calc 43.40 H (5.00-40.00) mg/dL 12/07/23 12/08/23 12/08/23 Range/Units 20:38 05:58 12:06 POC Glucose (mg/dL) 240 H 289 H 277 H (70-110) mg/dL Hemoglobin A1c (<=6.0) % Triglycerides (0.00-149.00) mg/dL VLDL Cholesterol, Calc (5.00-40.00) mg/dL Diabetes panel 05/31/24 05/31/24 Range/Units 18:54 18:54 Hemoglobin A1c 8.5 H (<=6.0) % Triglycerides 217.00 H (0.00-149.00) mg/dL HDL Cholesterol 54.40 (40.00-60.00) mg/dL Assessment and Plan Assessment: TIA Bilateral carotid artery stenosis history of multiple TIAs Plan: Reviewed CTA of the neck independently with her and her daughter in full detail which demonstrates severe stenosis that is read by the radiologist. Due to discrepancy between my read and the radiologist's read I did recommend carotid Doppler ultrasound which can be done as an outpatient no surgical intervention required at this time or while hospitalized Further workup can be completed as outpatient as well as if carotid duplex does demonstrate greater than 50 to 60% stenosis she will require surgical intervention at that time due to her acute TIA symptoms. Thank you for the consultation
--- NOTE | 2023-12-08 14:19 | US ---
EXAMINATION TYPE: US carotid duplex BILAT DATE OF EXAM: 12/08/2023 COMPARISON: NONE CLINICAL INDICATION: Female, 78 years old with history of TIA, carotid stenosis; bilateral stenosis o n CTA TECHNIQUE: Carotid duplex ultrasound examination. Indirect Doppler criteria was utilized. 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 Less than 50% stenosis of the bilateral carotid bifurcations. 2. Right thyroid gland nodule which should be further characterized with thyroid ultrasound. Criteria for Assigning % of Stenosis / Diameter reduction (Estimation based on the indirect measurements of the internal carotid artery velocities (ICA PSV). 1. Normal (no stenosis)=ICA PSV < 125 cm/s: ratio < 2.0: ICA EDV<40 cm/s. 2. Less than 50% stenosis=ICA PSV < 125 cm/s: ratio < 2.0: ICA EDV<40 cm/s. 3. 50 to 69% stenosis=ICA PSV of 125 to 230 cm/s: ration 2.0 ? 4.0: ICA EDV 40-100 cm/s. 4. Greater than 70% stenosis to near occlusion= ICA PSV > 230 cm/s: ratio > 4.0: ICA EDV > 100 cm/s. 5. Near occlusion= ICA PSV velocities may be low or undetectable: variable ratio and ICA EDV. 6. Total occlusion=unable to detect flow.
[2023-12-08 14:58] VITALS: BP 180/74; PULSE 91; RESP 16; TEMP 98.7
--- NOTE | 2023-12-10 21:49 | P.DS ---
Providers Date of admission: 12/06/23 20:43 Attending physician: Mita Wolf Consults: 12/06/23 20:42 Consult Physician Routine Consulting Provider: Dahiana Majano Consult Reason/Comments: tia Do you want consulting provider notified?: Yes 12/07/23 17:15 Consult Physician Routine Consulting Provider: Fior Harp Consult Reason/Comments: TIA, severe right ICA stenosis, moderate left side Do you want consulting provider notified?: Yes Primary care physician: Cassandra Galloway MD Hospital Course: Final Diagnosis -Aphasia: Appears to have motor aphasia concern for TIA and patient was monitor ed overnight for TIA. Symptoms have resolved. -Carotid stenosis 75-80% right ICA per CT. Carotid doppler reveals less than 50% stenosis bilaterally. -Paroxysmal atrial fibrillation: Presently sinus rhythm -Type 2 diabetes mellitus uncontrolled elevated blood sugars -History of CVA TIA in the past -Hypertension -Right thyroid gland nodule should be further characterized with thyroid ultrasound. Discharge Disposition Patient is stable for discharge home. Recommend to establish care with neurologist on discharge. Dr. Hooker has been recommended. Patient to also follow up with vascular surgery on discharge. No surgical intervention at this time for the carotid stenosis. Continue on eliquis and plavix. Recommend to continue on amaryl at 6 mg daily and follow up with PCP for improved glycemic control. Hospital Course Patient is a pleasant 78-year-old female with history of TIAs in the past and history of atrial fibrillation for which patient is on Eliquis, diabetes mellitus, hypertension and a systolic murmur in the aortic area came in with complaints of speech abnormality which lasted for few hours. Patient was seen in ER within 2 hours but unable to get tPA. Neurology was consulted. Patient had a CT angio of the head and neck which showed around 50% stenosis in left internal carotid and around 75% stenosis in the right ICA. Patient denies any other weakness or tingling numbness patient had a headache shortly after the symptoms which resolved at this time. Patient speech is normal at this time. Patient admitted for neurology evaluation. Appears to have motor aphasia concern for TIA and patient was monitored overnight for TIA echocardiogram will be obtained patient will be restarted back on Eliquis and Plavix. Neurology will evaluate the patient we will obtain lipid panel and will be restarted on statin. CTA of head and neck revealed atherosclerotic disease is present with stenosis approximately 50-60% in the proximal left ICA and 75-80% stenosis in the proximal right ICA. Hemoglobin A1c 8.5. Recommend optimize control of diabetes to target A1c < 7.0. Had echocardiogram showing preserved LV function, moderate pulmonary hypertension, calcific aortic stenosis, moderate. Carotid doppler reveals less than 50% stenosis of the bilateral carotid bifurcations. Right thyroid gland nodule should be further characterized with thyroid ult rasound. Patients aphasia has resolved at this time. No chest pain, no shortness of breath. No dizziness or lightheadedness, no nausea vomiting or diarrhea. Hemodynamically stable she will be discharged home. Please see medication reconciliation for a list of current medications. Thank you for allowing us to participate in the care of this patient. The impression and plan of care has been dictated by Vee Mahmood, Nurse Practitioner as directed. Dr. Sterling MD I have performed a history and physical examination and medical decision making of this patient, discussed the same with the dictator, and agree with the dictators assessment and plan as written, documented as a scribe. Based on total visit time, I have performed more than 50% of this visit. Patient Condition at Discharge: Fair Plan - Discharge Summary Discharge Rx Participant: Yes New Discharge Prescriptions: Continue Apixaban [Eliquis] 5 mg PO BID #60 tab Venlafaxine HCl ER [Effexor XR] 150 mg PO DAILY Clopidogrel [Plavix] 75 mg PO DAILY #30 tab Glimepiride [Amaryl] 4 - 6 mg PO DAILY PRN PRN Reason: high blood sugar Rosuvastatin [Crestor] 10 mg PO HS Insulin Degludec [Tresiba Flextouch U-100 Pen] 25 units SQ DAILY Discharge Medication List Apixaban [Eliquis] 5 mg PO BID #60 tab 04/03/18 [Rx] Venlafaxine HCl ER [Effexor XR] 150 mg PO DAILY 12/06/18 [History] Clopidogrel [Plavix] 75 mg PO DAILY #30 tab 05/15/22 [Rx] Glimepiride [Amaryl] 4 - 6 mg PO DAILY PRN 12/06/23 [History] Insulin Degludec [Tresiba Flextouch U-100 Pen] 25 units SQ DAILY 12/06/23 [History] Rosuvastatin [Crestor] 10 mg PO HS 05/31/24 [History] Follow up Appointment(s)/Referral(s): Cassandra Galloway MD [Primary Care Provider] - 1-2 days Hamilton Hooker DO [STAFF PHYSICIAN] - 2 Weeks (Neurologist ) Bao Mckee MD [STAFF PHYSICIAN] - 1 Week Deshawn Hirsch DO [STAFF PHYSICIAN] - 1 Week (vascular surgeon ) Ambulatory/Diagnostic Orders: Basic Metabolic Panel [LAB.AMB] Time Frame: 3 Days, Location: None Selected Activity/Diet/Wound Care/Special Instructions: Recommend 6 mg of amaryl daily for hyperglycemia Repeat blood work in 2 to 3 days Follow up with vascular surgery on discharge Discharge Disposition: HOME SELF-CARE
== END 2023-12-08 16:14 | disposition home or self-care (01) ==
LOC: EC 17:54 → 6NMEDSUR 20:43
PROVIDERS: ADMIT Hospitalist; ATTEND Hospitalist
DX: I65.21 Occlusion and stenosis of right carotid artery (principal); I48.0 Paroxysmal atrial fibrillation; E11.65 Type 2 diabetes mellitus with hyperglycemia; Z86.73 Personal history of transient ischemic attack (TIA), and cerebral infarction without residual deficits; I10 Essential (primary) hypertension; E04.1 Nontoxic single thyroid nodule; I49.1 Atrial premature depolarization; Z95.1 Presence of aortocoronary bypass graft; Z87.891 Personal history of nicotine dependence; Z85.3 Personal history of malignant neoplasm of breast; Z80.1 Family history of malignant neoplasm of trachea, bronchus and lung; Z79.899 Other long term (current) drug therapy; Z79.84 Long term (current) use of oral hypoglycemic drugs; Z79.4 Long term (current) use of insulin; Z79.02 Long term (current) use of antithrombotics/antiplatelets; Z79.01 Long term (current) use of anticoagulants
CPT/HCPCS: 96360; 96361 ×2; 99285; 36415; 93005; 93306; 80061 ×2; 80048; 85025; 85610; 85730; 83036; 71045; 93880; 70496; 70450; 70498; G0378 ×3; Q9967

== ENCOUNTER → 2024-01-13 | Day surgery (SDC) | payer MEDICARE, BC ==
[~2024-01-13] MED LIST changes: -DEXAMETHASONE SOD PHOSPHATE 10 MG/ML 1 ML VIAL IV ONE; -LIDOCAINE 1% 20 ML VIAL (10MG/ML) FOR IV START INTRADERMA PRN; +LIDOCAINE 1% INJ 10MG/ML (20 ML MDV) ONE; -MIDAZOLAM 2 MG/2 ML VIAL IV PRN; -ONDANSETRON 4 MG/2 ML VIAL IVP ONE; +fentaNYL (PF) 50 MCG/ML 2 ML AMP ONE
[2024-01-13] MEDS: IV FLUID CONTINUATION 1,000 ML IV ONE (08:50)
[2024-01-13] MEDS: SODIUM CHLORIDE 0.9% 1,000 ML IV SCH (08:50)
[2024-01-13 08:56] LABS: Glucose,Whole Blood 126 mg/dL (70-110)
[2024-01-13 09:07] LABS: Basophils % (A) 1 %; Eosinophils % (A) 4 %; HCT 36.5 % (34.0-46.0); HGB 12.2 gm/dL (11.4-16.0); Lymphocytes % (A) 12 %; MCH 32.2 pg (25.0-35.0); MCHC 33.6 g/dL (31.0-37.0); MCV 95.9 fL (80.0-100.0); Mean Platelet Volume 8.4; Monocytes % (A) 6 %; Neutrophils # (A) 6.2 k/uL (1.3-7.7); Neutrophils % (A) 76 %; Platelet Count 178 k/uL (150-450); Poikilocytosis Slight; RDW 14.1 % (11.5-15.5); WBC 8.2 k/uL (3.8-10.6)
[2024-01-13 09:08] LABS: Basophils # (A) 0.1 k/uL (0-0.2); Eosinophils # (A) 0.3 k/uL (0-0.7); Monocytes # (A) 0.5 k/uL (0-1.0)
[2024-01-13 09:23] LABS: African American GFR (CKD) 58 (>60 ml/min/1.73 sqM); Anion Gap 7 mmol/L; Blood Urea Nitrogen 28 mg/dL (7-17); Calcium 9.7 mg/dL (8.4-10.2); Carbon Dioxide 27 mmol/L (22-30); Chloride 107 mmol/L (98-107); Glucose 123 mg/dL (74-99); Non-African American GFR(CKD) 51 (>60 ml/min/1.73 sqM); Sodium 141 mmol/L (137-145)
[2024-01-13 09:27] VITALS: RESP 16; TEMP 98.5
[2024-01-13] MEDS: MIDAZOLAM 2 MG/2 ML VIAL IVP ONE (10:40)
[2024-01-13] MEDS: fentaNYL (PF) 50 MCG/ML 2 ML AMP IVP ONE (10:40)
[2024-01-13] MEDS: LIDOCAINE 1% INJ 10MG/ML (20 ML MDV) SQ ONE (10:42)
[2024-01-13] MEDS: IOPAMIDOL-370 200ML BTL INJ ONE (11:06)
--- NOTE | 2024-01-13 11:11 | P.OP ---
Date of Procedure: 01/13/24 Description of Procedure: Preoperative diagnosis: Carotid stenosis with discordant findings Postoperative diagnosis: Less than 50% bilateral internal carotid arteries Procedure: Aortic arch angiogram with bilateral selective carotid artery angiogram Surgeon: Deshawn Hirsch DO Anesthesia: Local with sedation EBL: Minimal Complications: None Condition: Stable Findings: No significant internal carotid artery stenosis bilaterally. Patent common carotid external carotid and internal carotid arteries bilaterally. Indication for procedure: 78-year-old female with history of carotid stenosis, possible TIA with speech issues who underwent CTA and carotid duplex in the hospital which demonstrated 80% stenosis of the right ICA on CT angiogram but less than 50% on ultrasound. She presents today for catheter directed angiogram to determine if she does have significant stenosis. Operative narrative: After written and informed consent was obtained the patient and all risks benefits and complications were described the patient was brought to the [facility] and laid in a supine position. The area of the right groin was prepped and draped in the usual sterile fashion. Utilizing ultrasound the right common femoral artery was visualized and demonstrated patency with minimal calcification. Under ultrasound guidance the right common femoral artery was cannulated and utilizing Seldinger technique a 5-Bulgarian sheath was placed. 035 Glidewire was then placed to the aortic arch followed by pigtail catheter. Utilizing the pigtail catheter and arch angiogram was obtained. Utilizing a JB2 catheter the right and left common carotid arteries were cannulated and selective angiograms were obtained. Once completed all guidewires and catheters were then removed and hemostasis was achieved with pressure. The patient tolerated the procedure well and was sent to PACU for recovery.
--- NOTE | 2024-01-13 11:49 | IR ---
EXAMINATION TYPE: IR angio carotid cerv BILAT Intraoperative/procedural fluoroscopic services were pr ovided. CLINICAL INDICATION:Female, 78 years old with history of ARCH STUDY, 4.6 MINS FLT, 0.0437MGY; , [facility] Total fluoroscopy time is 4.6 min. DAP: 7.23 Gycm2 Please see the operative/procedural note for further details.
[2024-01-13] MEDS: LOSARTAN 25 MG TAB PO STA (13:32)
[2024-01-13 14:49] VITALS: PULSE 74
[2024-01-13 16:10] VITALS: BP 168/79
== END | disposition home or self-care (01) ==
LOC: CATHCVL 08:26
PROVIDERS: ATTEND Surgery
DX: I65.23 Occlusion and stenosis of bilateral carotid arteries (principal)
CPT/HCPCS: 36222 ×2; 80048; 85025; C1769 ×2; C1894; J2250; J2001; J3010; Q9967